=== PATIENT | male | born 1945 | race Caucasian/White ===

== ENCOUNTER 2016-05-07 11:25 | Inpatient (IN) | payer MEDICAID, OTHER ==
[~2016-05-07] VITALS: Ht 160 cm; Wt 56.4 kg
[~2016-05-07 11:25] MED LIST: ALBU8.5H5 INH; FOLI-49 PO; MULTI PO
[2016-05-07] MEDS ORDERED: SOD CHLORIDE 0.9% 1,000 ML IV STA (11:53)
[2016-05-07] MEDS ORDERED: ONDANSETRON 4 MG INJ IV STA (11:53)
[2016-05-07] MEDS ORDERED: PANTOPRAZOLE 40 MG INJ IV STA (11:53)
--- NOTE | 2016-05-07 12:07 | ERA ---
ER Documentation Chief Complaint Date/Time DATE: 05/07/16 TIME: 12:07 Chief Complaint BIB RA 881 FOR EVAL OF VOMITING BLOOD HPI The patient is a 70-year-old male, presenting to the ER because of acute hematemesis last night after drinking. He has similar symptoms previously. He could not tell me how much he vomited. He denies syncope, near syncope, complains of generalized weakness, denied neck pain, chest pain, dyspnea. He complains of diffuse abdominal pain that began last night. He denies dysuria, polyuria, diarrhea, constipation. He does not smoke, drinks regularly, denies illicit Past medical history: Asthma, gastritis, alcoholism Past surgical history: None ROS All systems reviewed and are negative except as per history of present illness. Medications Home Meds Discontinued Scripts Multivitamins* (Theragran*) 1 Tab Tab, 1 TAB PO DAILY for 30 Days, TAB 3 Refills Prov:ADONIS PARTIDA S. 01/04/15 Folic Acid* (Folic Acid*) 1 Mg Tab, 1 MG PO DAILY for 30 Days, 3 Refills Prov:ADONIS PARTIDA S. 01/04/15 Albuterol Sulfate* (Albuterol Sulfate* HFA) 8.5 Gm Hfa.aer.ad, 1-2 PUFF INH Q4 Y for SHORTNESS OF BREATH for 30 Days, EA 3 Refills Prov:ADONIS PARTIDA S. 01/04/15 Allergies Allergies: Coded Allergies: No Known Allergy (Unverified , 05/07/16) PMhx/Soc History of Surgery: No Anesthesia Reaction: No Hx Neurological Disorder: No Hx Respiratory Disorders: Yes (asthma ) Hx Cardiac Disorders: No Hx Psychiatric Problems: No Hx Miscellaneous Medical Probl: Yes (ETOH ABUSE) Hx Alcohol Use: Yes Hx Substance Use: No Hx Tobacco Use: No Physical Exam Vitals Vital Signs Date Time Temp Pulse Resp B/P Pulse Ox O2 Delivery O2 Flow Rate FiO2 05/07/16 12:20 98 16 110/60 98 05/07/16 11:37 97.9 100 19 104/69 99 Physical Exam Const: No acute distress. Unkempt Head: Atraumatic. Eyes: Normal Conjunctiva. ENT: Normal External Ears, Nose and Mouth. Neck: Full range of motion. No meningismus. Resp: Clear to auscultation bilaterally. Cardio: Regular rate and rhythm, no murmurs. Abd: Soft, non distended, normal bowel sounds, moderate and diffuse abdominal tenderness, no rigidity, rebound, CVA tenderness Skin: No petechiae or rashes. Back: No midline or flank tenderness. Ext: No cyanosis, or edema. Neur: Awake and alert. No focal deficit Psych: Normal Mood and Affect. Result Diagram: 05/07/16 1225 05/07/16 1225 Results 24 hrs Laboratory Tests Test 05/07/16 12:25 Activated Partial Thromboplast Time 32.9Sec Alanine Aminotransferase (ALT/SGPT) 40IU/L Albumin 2.9g/dl Albumin/Globulin Ratio 0.59 Alkaline Phosphatase 202IU/L Anion Gap 16 Aspartate Amino Transf (AST/SGOT) 107IU/L Band Neutrophils % 3.0% Basophils # 0.110^3/ul Basophils % 1.0% Blood Morphology Comment Blood Urea Nitrogen 12mg/dl Calcium Level 7.7mg/dl Carbon Dioxide Level 26mmol/L Chloride Level 99mmol/L Creatinine 0.64mg/dl Direct Bilirubin 0.00mg/dl Eosinophils # 0.210^3/ul Eosinophils % 2.0% Ethyl Alcohol Level 218.0mg/dl Globulin 4.90g/dl Glucose Level 94mg/dl Hematocrit 24.1% Hemoglobin 7.9g/dl INR International Normalized Ratio 1.30 Indirect Bilirubin 1.0mg/dl Lipase 183U/L Lymphocytes # 1.110^3/ul Lymphocytes % 14.0% Mean Corpuscular Hemoglobin 31.9pg Mean Corpuscular Hemoglobin Concent 32.9g/dl Mean Corpuscular Volume 97.0fl Mean Platelet Volume 8.1fl Monocytes # 0.410^3/ul Monocytes % 5.0% Neutrophils # 5.610^3/ul Neutrophils % 75.0% Platelet Count 15373^3/UL Potassium Level 4.1mmol/L Prothrombin Time 16.3Sec Prothrombin Time Ratio 1.3 Red Blood Count 2.4910^6/ul Red Cell Distribution Width 20.5% Sodium Level 137mmol/L Total Bilirubin 1.0mg/dl Total Protein 7.8g/dl Troponin I < 0.012ng/ml White Blood Count 7.510^3/ul Current Medications Medications (Trade) Dose Ordered Sig/Deandra Route PRN Reason Start Time Stop Time Status Last Admin Dose Admin Sodium Chloride (NS) 1,000 ml @ 1,000 mls/hr Q1H STAT IV 05/07/16 11:53 05/07/16 12:52 DC 05/07/16 12:33 Pantoprazole (Protonix Iv) 40 mg ONCE STAT IV 05/07/16 11:53 05/07/16 11:55 DC 05/07/16 12:33 Ondansetron HCl (Zofran Inj) 4 mg ONCE STAT IV 05/07/16 11:53 05/07/16 11:55 DC 05/07/16 12:33 Lorazepam (Ativan) 1 mg ONCE ONCE IV 05/07/16 13:30 05/07/16 13:30 DC Chlordiazepoxide (Librium) 75 mg ONCE ONCE PO 05/07/16 13:30 05/07/16 13:30 DC Procedures/MDM EKG: Read by emergency physician Rate/Rhythm: Sinus tachycardia 101 beats per min QRS, ST, T-waves: No ST elevation, no T wave inversion, low voltage QRS Impression: Abnormal EKG [place] [id number] Radiology Main Line: [phone] DIAGNOSTIC IMAGING REPORT Patient: LISSY RODRIGUEZ : 1945 Age: 70 Sex: M MR #: [id number] DOS: 05/07/16 1153 Ordering MD: TOMASZ HARDY DO Location: E/R Room/Bed: PROCEDURE: CT abdomen and pelvis without contrast. CLINICAL INDICATION: Weakness. There is a question of upper GI bleed. TECHNIQUE: CT of the abdomen and pelvis without contrast was performed on a multidetector high-resolution CT scanner. Coronal and sagittal reformatted images were obtained from the axial source images. Images were reviewed on a high-resolution PACS workstation. The total exam CTDI equals 6.63 mGy and the total exam DLP equals 384.15 mGy-cm. COMPARISON: None available. FINDINGS: There is a calcified granuloma within the visualized lingula and there is mild centrilobular emphysema within the visualized lung bases, which are otherwise clear. There are coronary artery calcifications. The visualized heart is otherwise unremarkable. There is diffuse fatty infiltration of the liver, which is otherwise grossly unremarkable. There is no intra or extrahepatic biliary ductal dilatation. There stones within the gallbladder. The spleen, pancreas, adrenal glands are grossly unremarkable. There is a moderate hiatal hernia. There is no nephrolithiasis or hydronephrosis. There is no bowel wall thickening or evidence of obstruction. The appendix is in the right lower quadrant, and is unremarkable. There is no free intraperitoneal air. There is a qlkodxsd-dj-zokgz volume of simple-appearing ascites. There is mild anasarca. There is no mesenteric or retroperitoneal adenopathy. There are atherosclerotic changes of the aorta, which is nonaneurysmal. The prostate gland, seminal vesicles, and urinary bladder are grossly unremarkable. There are small to moderate bilateral inguinal hernias, both of which contain ascitic fluid. There are mild compression deformities involving the superior endplates of L1 and L4, age indeterminate. There are ventral flowing osteophytes spanning the visualized lower thoracic spine, consistent with diffuse idiopathic skeletal hyperostosis (DISH). There are no concerning osseous lesions. IMPRESSION: 1. Pulmonary findings of prior granulomatous disease. 2. Hepatic steatosis. 3. Moderate hiatal hernia. 4. Moderate to large volume of simple-appearing ascites and mild anasarca. 5. Cholelithiasis. 6. Small to moderate bilateral inguinal hernias, both of which containing ascitic fluid. 7. Coronary artery calcifications and atherosclerotic changes of the aorta. 8. Mild compression deformities of L1 and L4, age indeterminate. 9. Spinal findings of DISH. RPTAT: GG .Facundo Yee MD, Date Time Electronically viewed and signed by .Facundo Yee MD, MD on 05/07/2016 13:19 .P/ CC: TOMASZ HARDY DO [place] [id number] Radiology Main Line: [phone] DIAGNOSTIC IMAGING REPORT Patient: LISSY RODRIGUEZ : 1945 Age: 70 Sex: M MR #: [id number] DOS: 05/07/16 1214 Ordering MD: CRISHTIAN DOBBINS MD Location: E/R Room/Bed: PROCEDURE: XR Chest. CLINICAL INDICATION: chest pain, weakness TECHNIQUE: Single frontal view of the chest was obtained COMPARISON: 12/25/14 FINDINGS: The heart and mediastinum are within normal limits. The lungs are clear. There is no pleural effusion or pneumothorax. RPTAT: AA IMPRESSION: No acute disease. .Dale Ayala MD, MD Date Time Electronically viewed and signed by .Dale Ayala MD, MD on 05/07/2016 13: 03 .S/ CC: CRISTHIAN DOBBINS MD MEDICAL MAKING DECISION: The patient is a 70-year-old male, presenting with acute GI bleed, acute alcohol intoxication.. He was treated with NGT, Protonix 40 mg IV, Zofran 4 mg IV and 1 L normal saline. The differential diagnoses considered include but are not limited to esophagitis, GI malignancy gastritis, peptic ulcer disease, esophageal varices, Elaine-Chaudhry tear, carcinoma, polyp, hemorrhoid, fissure, diverticulosis, angiodysplasia. Departure Diagnosis: Primary Impression: GI bleed Additional Impressions: Alcoholic intoxication Hepatic steatosis Ascites Cholelithiasis Hiatal hernia Abnormal LFTs Condition: Stable Comments I discussed the findings with the patient. I discussed the patient with his physician Dr. Garay who was made aware of the lab, the treatment, the patient condition. The patient is admitted to telemetry at 2:40 PM Critical Care: Time: 35 minutes Treatments/Evaluations: Close monitoring and treatment of unstable vital signs, cardiorespiratory, and neurologic status, while maintaining tight balance of fluid, respiratory, and cardiac interventions. CRISTHIAN DOBBINS MD May 07, 2016 12:07
[2016-05-07 12:48] LABS: HEMATOCRIT 24.1 % (42.0-52.0); HEMOGLOBIN 7.9 g/dl (14.0-18.0); MEAN CORPUSCULAR HEMOGLOBIN 31.9 pg (29.0-33.0); MEAN CORPUSCULAR HGB CONC 32.9 g/dl (32.0-37.0); MEAN PLATELET VOLUME 8.1 fl (7.4-10.4); PLATELET COUNT 244 10^3/UL (140-440); RED BLOOD COUNT 2.49 10^6/ul (4.70-6.10); RED CELL DISTRIBUTION WIDTH 20.5 % (11.5-14.5); UNCORRECTED WBC 7.5 10^3/ul (4.8-10.8); WHITE BLOOD COUNT 7.5 10^3/ul (4.8-10.8)
[2016-05-07 12:52] LABS: INR 1.3; PROTIME 16.3 Sec (12.2-14.2); PT RATIO 1.3
[2016-05-07 12:55] LABS: ALBUMIN 2.9 g/dl (3.3-4.9); SODIUM 137 mmol/L (135-144)
[2016-05-07 12:56] LABS: POTASSIUM 4.1 mmol/L (3.5-5.1)
[2016-05-07 12:58] LABS: ALBUMIN/GLOBULIN RATIO 0.59; ALKALINE PHOSPHATASE 202 IU/L (42-121); ASPARTATE AMINO TRANSFERASE 107 IU/L (15-46); BLOOD UREA NITROGEN 12 mg/dl (7-20); CARBON DIOXIDE 26 mmol/L (21-31); CREATININE 0.64 mg/dl (0.61-1.24); TOTAL PROTEIN 7.8 g/dl (6.1-8.1)
[2016-05-07 12:59] LABS: ALANINE AMINOTRANSFERASE 40 IU/L (13-69); CALCIUM 7.7 mg/dl (8.4-10.2); GLUCOSE 94 mg/dl (70-220)
--- NOTE | 2016-05-07 13:04 | RADRPT ---
PROCEDURE: XR Chest. CLINICAL INDICATION: chest pain, weakness TECHNIQUE: Single frontal view of the chest was obtained COMPARISON: 12/25/14 FINDINGS: The heart and mediastinum are within normal limits. The lungs are clear. There is no pleural effusion or pneumothorax. RPTAT: AA IMPRESSION: No acute disease. .Dale Ayala MD, MD Date Time Electronically viewed and signed by .Dale Ayala MD, on 05/07/2016 13:03 .S/
[2016-05-07 13:18] LABS: CONDITION 1; LH ANALYZER COMMENTS 1
--- NOTE | 2016-05-07 13:19 | RADRPT ---
PROCEDURE: CT abdomen and pelvis without contrast. CLINICAL INDICATION: Weakness. There is a question of upper GI bleed. TECHNIQUE: CT of the abdomen and pelvis without contrast was performed on a multidetector high-res olution CT scanner. Coronal and sagittal reformatted images were obtained from the axial source imag es. Images were reviewed on a high-resolution PACS workstation. The total exam CTDI equals 6.63 mGy and the total exam DLP equals 384.15 mGy-cm. COMPARISON: None available. FINDINGS: There is a calcified granuloma within the visualized lingula and there is mild centrilobular emphyse ma within the visualized lung bases, which are otherwise clear. There are coronary artery calcifica tions. The visualized heart is otherwise unremarkable. There is diffuse fatty infiltration of the liver, which is otherwise grossly unremarkable. There is no intra or extrahepatic biliary ductal dilatation. There stones within the gallbladder. The spleen , pancreas, adrenal glands are grossly unremarkable. There is a moderate hiatal hernia. There is n o nephrolithiasis or hydronephrosis. There is no bowel wall thickening or evidence of obstruction. The appendix is in the right lower migel drant, and is unremarkable. There is no free intraperitoneal air. There is a itxjgyzd-tu-fnilu volu me of simple-appearing ascites. There is mild anasarca. There is no mesenteric or retroperitoneal adenopathy. There are atherosclerotic changes of the aorta, which is nonaneurysmal. The prostate gl and, seminal vesicles, and urinary bladder are grossly unremarkable. There are small to moderate solitario ateral inguinal hernias, both of which contain ascitic fluid. There are mild compression deformities involving the superior endplates of L1 and L4, age indetermin ate. There are ventral flowing osteophytes spanning the visualized lower thoracic spine, consistent with diffuse idiopathic skeletal hyperostosis (DISH). There are no concerning osseous lesions. IMPRESSION: 1. Pulmonary findings of prior granulomatous disease. 2. Hepatic steatosis. 3. Moderate hiatal hernia. 4. Moderate to large volume of simple-appearing ascites and mild anasarca. 5. Cholelithiasis. 6. Small to moderate bilateral inguinal hernias, both of which containing ascitic fluid. 7. Coronary artery calcifications and atherosclerotic changes of the aorta. 8. Mild compression deformities of L1 and L4, age indeterminate. 9. Spinal findings of DISH. RPTAT: GG .Facundo Yee MD, MD Date Time Electronically viewed and signed by .Facundo Yee MD, MD on 05/07/2016 13:19 .P/
[2016-05-07 13:25] LABS: TROPONIN-I < 0.012 ng/ml (0.00-0.12)
[2016-05-07] MEDS ORDERED: LORAZEPAM 2 MG INJ IV ONE (13:30)
[2016-05-07] MEDS ORDERED: CHLORDIAZEPOXIDE 25 MG CAP PO ONE (13:30)
[2016-05-07 13:50] LABS: BASOPHIL # 0.1 10^3/ul (0.0-0.1); EOSINOPHILS # 0.2 10^3/ul (0.0-0.5); LYMPHOCYTES # 1.1 10^3/ul (0.8-2.9); MONOCYTE # 0.4 10^3/ul (0.3-0.9); NEUTROPHIL # 5.6 10^3/ul (1.6-7.5); PARTIAL THROMBOPLASTIN TIME 32.9 Sec (25.0-35.0)
[2016-05-07 13:53] LABS: ANION GAP 16 (8-16)
[2016-05-07 14:08] LABS: CHLORIDE 99 mmol/L (97-110)
[2016-05-07 18:17] VITALS: BP 138/63; PULSE 116; RESP 18
[2016-05-07 18:19] VITALS: Ht 160 cm; Wt 56.4 kg
--- NOTE | 2016-05-07 19:13 | CONS ---
Date/Time of Note Date/Time of Note DATE: 05/07/16 TIME: 19:08 Assessment/Plan Assessment/Plan Additional Assessment/Plan Hematemesis Anemia Abdominal pain Nausea History of EtOH abuse Ascites Transaminitis Plan: Plan for EGD tomorrow afternoon Advised patient of R/B/A of procedure and he is agreeable to proceed Start octreotide and Protonix drip Monitor H&H every 6 hours, transfuse 2 units for Hgb <7.5 Type and screen NPO Paracentesis as needed Review hepatitis serology Further recommendations depend on clinical course , Consultation Date/Type/Reason Admit Date/Time May 07, 2016 at 14:39 Hx of Present Illness 70-year-old M with extensive history of EtOH abuse for several years presented to ED with complaints of abdominal pain, nausea, and hematemesis. Patient stated symptoms started abruptly early this morning. He reports drinking several beers last night, and reports being abstinent for several hours. Patient denies previous episode. Patient denies chest pain, shortness of breath , syncopal episode, dizziness, and diarrhea. Patient denies previous episode and other chronic conditions. Provided R/B/A of procedure the patient is agreeable to proceed Social History Smoking Status: Never smoker Exam/Review of Systems Vital Signs Vitals Vital Signs Date Time Temp Pulse Resp B/P Pulse Ox O2 Delivery O2 Flow Rate FiO2 05/07/16 18:17 97.6 116 18 138/63 96 Room Air Exam Constitutional: alert, frail, oriented Psych: nl mood/affect Eyes: EOMI Respiratory: clear to auscultation Cardiovascular: regular rate and rhythm Gastrointestinal: distended, firm Neurological: STREET SPRINKLER II-XII intact Results Result Diagram: 05/07/16 1225 05/07/16 1225 Results 24 hrs Laboratory Tests Test 05/07/16 12:25 Activated Partial Thromboplast Time 32.9 Alanine Aminotransferase (ALT/SGPT) 40 Albumin 2.9 L Albumin/Globulin Ratio 0.59 Alkaline Phosphatase 202 H Anion Gap 16 Aspartate Amino Transf (AST/SGOT) 107 H Band Neutrophils % 3.0 Basophils # 0.1 Basophils % 1.0 Blood Morphology Comment Blood Urea Nitrogen 12 Calcium Level 7.7 L Carbon Dioxide Level 26 Chloride Level 99 Creatinine 0.64 Direct Bilirubin 0.00 Eosinophils # 0.2 Eosinophils % 2.0 Ethyl Alcohol Level 218.0 Globulin 4.90 H Glucose Level 94 Hematocrit 24.1 L Hemoglobin 7.9 L INR International Normalized Ratio 1.30 Indirect Bilirubin 1.0 Lipase 183 Lymphocytes # 1.1 Lymphocytes % 14.0 L Mean Corpuscular Hemoglobin 31.9 Mean Corpuscular Hemoglobin Concent 32.9 Mean Corpuscular Volume 97.0 Mean Platelet Volume 8.1 # Monocytes # 0.4 Monocytes % 5.0 Neutrophils # 5.6 Neutrophils % 75.0 Platelet Count 244 Potassium Level 4.1 Prothrombin Time 16.3 H Prothrombin Time Ratio 1.3 Red Blood Count 2.49 #L Red Cell Distribution Width 20.5 H Sodium Level 137 Total Bilirubin 1.0 Total Protein 7.8 Troponin I < 0.012 White Blood Count 7.5 # Medications Medications Current Medications Pantoprazole 80 mg/Sodium Chloride 100 ml @ 10 mls/hr Q10H IV ; Start 05/07/16 at 19:30; Status UNV Octreotide Acetate/Sodium Chloride (Sandostatin/NS) 50 ml @ 2.5 mls/hr Q20H IV ; Start 05/07/16 at 19:30; Status UNV MAIA ROSA MD May 07, 2016 19:12
[2016-05-07] MEDS ORDERED: PANTOPRAZOLE IV 80 MG in SOD CHLORIDE 0.9% 100 ML IV SCH (19:30)
[2016-05-07] MEDS ORDERED: PANTOPRAZOLE 40 MG INJ IV ONE (19:30)
[2016-05-07] MEDS ORDERED: NACL 0.9% 3 ML SYG IV SCH (19:30)
[2016-05-07] MEDS ORDERED: ONDANSETRON 4 MG INJ IV PRN (19:30)
[2016-05-07 19:31] LABS: HEMATOCRIT 20.9 % (42.0-52.0)
[2016-05-07 19:34] VITALS: BP 111/58; RESP 18
[2016-05-07 19:41] LABS: HEMOGLOBIN 6.9 g/dl (14.0-18.0)
--- NOTE | 2016-05-07 19:55 | HP ---
DATE OF ADMISSION: 05/07/2016 CHIEF COMPLAINT: Upper gastrointestinal bleed. HISTORY OF PRESENT ILLNESS: The patient is a 70-year-old male with known history of alcohol abuse, homelessness. The patient was last hospitalized here in 2014. The patient presents with vomiting o f blood that started this morning. States that his last drink was last night. States this is the f irst time that he has had an upper GI bleed, but he is confused. The patient is a poor historian at this time. PAST MEDICAL HISTORY: Alcohol abuse with previous hospitalization for alcohol withdrawal, weakness. PAST SURGICAL HISTORY: Denies. HOME MEDICATIONS: None. ALLERGIES: NO KNOWN DRUG ALLERGIES. FAMILY HISTORY: Unknown. SOCIAL HISTORY: The patient is homeless. He does have a history of alcohol abuse. It is not clear if he uses illicit drugs or cigarettes. REVIEW OF SYSTEMS: A 12-point review of systems is difficult to obtain secondary to patient's poor mentation. PHYSICAL EXAMINATION: VITAL SIGNS: Temperature is 97.6, pulse 116, respiratory rate 18, BP is 138/63, saturation 96% on r oom air. GENERAL: No acute distress. Alert, but not oriented, disheveled. HEENT: Normocephalic, atraumatic. Blood noted around the mouth. LUNGS: Clear to auscultation. CARDIOVASCULAR: Regular rate and rhythm. ABDOMEN: Nondistended, nontender, soft. EXTREMITIES: No clubbing, cyanosis, or edema. LABORATORIES: White count 7.5, hemoglobin 7.9, platelets are 244. Chemistry within normal limits. AST is 107, alkaline phosphatase is 202. INR 1.3. Alcohol level is 218. DIAGNOSTICS: Abdominal pelvis CT shows hepatic steatosis, hiatal hernia, ascites, cholelithiasis, b ilateral inguinal hernias, spinal findings of DISH. Chest x-ray: No acute disease. ASSESSMENT AND PLAN: 1. Upper gastrointestinal bleed possible secondary to esophageal varices versus gastric ulcer. The patient does have a history of alcohol abuse. GI has been consulted. We will start him on a Ervin nix drip. The patient is not actively bleeding at this time. 2. Acute on chronic anemia. This is likely secondary to patient's upper gastrointestinal bleed. T he patient's MCV is elevated, likely secondary to alcohol abuse, but will check an iron panel as MCV may be falsely elevated secondary to his alcohol abuse and liver disease. No indication for blood transfusion at this time. 3. Alcohol abuse. The patient will be advised for consultation. Will obtain a social worker palliative care consu ltation. 4. Homelessness. delinquency prevention social worker consultation. 5. Prophylaxis: Sequential compression devices. Dictated By: ZHENG VERA MD BS/NTS Conf#: [id number] DID#: [id number]
[2016-05-07] MEDS: D5W-0.45 NACL + KCL 20 MEQ 1,000 ML IV SCH (20:09)
[2016-05-07 20:35] VITALS: PULSE 111
[2016-05-07] MEDS: OCTREOTIDE 500 MCG in SOD CHLORIDE 0.9% 49 ML IV SCH (21:11)
[2016-05-07 21:13] LABS: HEPATITIS B CORE ANTIBODY NEGATIVE (NEGATIVE)
[2016-05-07] MEDS: PANTOPRAZOLE IV 80 MG in SOD CHLORIDE 0.9% 100 ML IV SCH (23:03)
[2016-05-08] VITALS (18 sets, daily range): BP systolic 119–157; BP diastolic 68–89; PULSE 85–99; RESP 16–36
[2016-05-08] MEDS: D5W-0.45 NACL + KCL 20 MEQ 1,000 ML IV SCH ×4 (05:09→23:30)
[2016-05-08] MEDS: PANTOPRAZOLE IV 80 MG in SOD CHLORIDE 0.9% 100 ML IV SCH ×3 (05:30→16:18)
[2016-05-08 06:21] LABS: INR 1.3; PROTIME 16.3 Sec (12.2-14.2); PT RATIO 1.3
[2016-05-08 06:22] LABS: PARTIAL THROMBOPLASTIN TIME 33.8 Sec (25.0-35.0)
[2016-05-08 06:23] LABS: HEMATOCRIT 27.6 % (42.0-52.0); HEMOGLOBIN 9.4 g/dl (14.0-18.0); MEAN CORPUSCULAR HEMOGLOBIN 31.9 pg (29.0-33.0); MEAN CORPUSCULAR VOLUME 93.9 fl (82.0-101.0); MEAN PLATELET VOLUME 8.2 fl (7.4-10.4); PLATELET COUNT 187 10^3/UL (140-440); RED BLOOD COUNT 2.94 10^6/ul (4.70-6.10); RED CELL DISTRIBUTION WIDTH 17.9 % (11.5-14.5); UNCORRECTED WBC 7.9 10^3/ul (4.8-10.8); WHITE BLOOD COUNT 7.9 10^3/ul (4.8-10.8)
[2016-05-08 06:34] LABS: ALBUMIN 2.7 g/dl (3.3-4.9)
[2016-05-08 06:35] LABS: CONDITION 1; LH ANALYZER COMMENTS 1; POTASSIUM 4.3 mmol/L (3.5-5.1)
[2016-05-08 06:37] LABS: ALBUMIN/GLOBULIN RATIO 0.57; BILIRUBIN,INDIRECT 0.9 mg/dl (0-1.1); BILIRUBIN,TOTAL 0.9 mg/dl (0.2-1.3); CREATININE 0.7 mg/dl (0.61-1.24); TOTAL PROTEIN 7.4 g/dl (6.1-8.1)
[2016-05-08 06:38] LABS: CALCIUM 7.8 mg/dl (8.4-10.2); MAGNESIUM 1.8 mg/dl (1.7-2.5); PHOSPHORUS 2.8 mg/dl (2.5-4.9)
[2016-05-08 07:18] LABS: IRON 58 ug/dl (35-150)
[2016-05-08 07:27] LABS: TOTAL IRON BINDING CAPACITY 262 ug/dl (241-421)
[2016-05-08 08:45] LABS: FOLATE 4.7 ng/ml (2.8-20.0)
[2016-05-08] MEDS ORDERED: INFLUENZA VIRUS VACCINE 0.5 ML (DISPENSING) IM* ONE (09:00)
[2016-05-08 09:17] LABS: BASOPHIL # 0.2 10^3/ul (0.0-0.1); EOSINOPHILS # 0.1 10^3/ul (0.0-0.5); NEUTROPHIL # 5.5 10^3/ul (1.6-7.5)
[2016-05-08 12:33] LABS: HEMATOCRIT 25.9 % (42.0-52.0); HEMOGLOBIN 8.7 g/dl (14.0-18.0)
[2016-05-08] MEDS: OCTREOTIDE 500 MCG in SOD CHLORIDE 0.9% 49 ML IV SCH ×2 (13:46→15:30)
--- NOTE | 2016-05-08 14:18 | PN ---
Date/Time of Note Date/Time of Note DATE: 05/08/16 TIME: 14:14 Assessment/Plan VTE Prophylaxis VTE Prophylaxis Intervention: SCD's Lines/Catheters IV Catheter Type (from Rust): Peripheral IV Urinary Cath still in place: No Assessment/Plan Chief Complaint/Hosp Course 1. Upper gastrointestinal bleed possible secondary to esophageal varices versus gastric ulcer- The patient does have a history of alcohol abuse GI consult appreciated. Plan is for EGD today Continue Protonix 2. Acute on chronic anemia-stable Workup is normal with normal iron as well as normal vitamin B12 and folate 3. Alcohol abuse. 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 Homelessness line out worker consultation 5. Prophylaxis: Sequential compression devices. Problems: Subjective 24 Hr Interval Summary Constitutional: disoriented Exam/Review of Systems Vital Signs Vitals Vital Signs Date Time Temp Pulse Resp B/P Pulse Ox O2 Delivery O2 Flow Rate FiO2 05/08/16 12:21 90 05/08/16 11:25 97.9 16 137/88 98 05/07/16 18:17 Room Air Intake and Output 05/07/16 05/07/16 05/08/16 15:00 23:00 07:00 Intake Total 1400.5 ml Balance 1400.5 ml Exam GENERAL: NAD HEENT: NCAT LUNGS: Clear to auscultation bilaterally CARDIOVASCULAR: S1, S2 heard. No rubs or gallops. ABDOMEN: Soft, nontender, nondistended. Normal bowel sounds. No rebound or guarding. NEUROLOGIC: No focal deficits EXT- No c/c/e Results Result Diagram: 05/08/16 1208 05/08/16 0545 Results 24 hrs Laboratory Tests Test 05/07/16 19:20 05/07/16 19:40 05/08/16 05:45 05/08/16 12:08 Hematocrit 20.9 L 27.6 #L 25.9 L Hemoglobin 6.9 *L 9.4 #L 8.7 L Hepatitis B Core Total Antibody NEGATIVE Hepatitis B Surface Antigen NEGATIVE Hepatitis C Antibody NEGATIVE Activated Partial Thromboplast Time 33.8 Alanine Aminotransferase (ALT/SGPT) 52 Albumin 2.7 L Albumin/Globulin Ratio 0.57 Alkaline Phosphatase 187 H Anion Gap 16 Aspartate Amino Transf (AST/SGOT) 87 H Basophils # 0.2 H Basophils % 2.0 Blood Morphology Comment Blood Urea Nitrogen 15 Calcium Level 7.8 L Carbon Dioxide Level 23 Chloride Level 103 Creatinine 0.70 Differential Comment MANUAL DIFF Direct Bilirubin 0.00 Eosinophils # 0.1 Eosinophils % 1.0 Folate 4.7 Globulin 4.70 H Glucose Level 109 Hemoglobin A1c 5.1 INR International Normalized Ratio 1.30 Indirect Bilirubin 0.9 Iron Level 58 Lymphocytes # 1.0 Lymphocytes % 13.0 L Macrocytosis 1+ Magnesium Level 1.8 Mean Corpuscular Hemoglobin 31.9 Mean Corpuscular Hemoglobin Concent 34.0 Mean Corpuscular Volume 93.9 Mean Platelet Volume 8.2 Monocytes # 1.0 H Monocytes % 13.0 H Neutrophils # 5.5 Neutrophils % 70.0 Percent Iron Saturation 22 Phosphorus Level 2.8 Platelet Count 187 # Potassium Level 4.3 Prothrombin Time 16.3 H Prothrombin Time Ratio 1.3 Reactive Lymphocytes % 1.0 Red Blood Count 2.94 L Red Cell Distribution Width 17.9 H Sodium Level 138 Total Bilirubin 0.9 Total Iron Binding Capacity 262 Total Protein 7.4 Vitamin B12 Level 917 White Blood Count 7.9 Medications Medications Current Medications Pantoprazole 80 mg/Sodium Chloride 100 ml @ 10 mls/hr Q10H IV Last administered on 05/08/16at 07:29; Admin Dose 10 MLS/HR; Start 05/07/16 at 19:30 Octreotide Acetate 500 mcg/ Sodium Chloride 50 ml @ 2.5 mls/hr Q20H IV Last administered on 05/08/16at 13:46; Admin Dose 2.5 MLS/HR; Start 05/07/16 at 19:30 Potassium Chloride/Dextrose/ Sod Cl (D5-1/2ns + KCl 20 Meq) 1,000 ml @ 100 mls/ hr Q10H IV Last administered on 05/08/16at 13:52; Admin Dose 100 MLS/HR; Start 05/07/16 at 19:09 Ondansetron HCl (Zofran Inj) 4 mg Q6H PRN IV NAUSEA AND/OR VOMITING; Start 05/07/16 at 19:30 Morphine Sulfate (morphine) 2 mg Q4H PRN IV SEVERE PAIN LEVEL 7-10; Start 05/07 at 19:30 Docusate Sodium (Colace) 100 mg Q12H PRN PO CONSTIPATION; Start 05/07/16 at 19: 30 ZHENG VERA May 08, 2016 14:18
[2016-05-08] MEDS ORDERED: PROPOFOL 20 ML ONE (15:11)
[2016-05-08] MEDS: morphine 2 MG INJ IV PRN ×2 (16:12→20:08)
[2016-05-08 18:33] LABS: HEMATOCRIT 26.8 % (42.0-52.0)
[2016-05-09] VITALS (11 sets, daily range): BP systolic 126–153; BP diastolic 73–87; PULSE 90–100; RESP 18–20
[2016-05-09] MEDS: D5W-0.45 NACL + KCL 20 MEQ 1,000 ML IV SCH ×3 (01:09→21:09)
[2016-05-09] MEDS: PANTOPRAZOLE IV 80 MG in SOD CHLORIDE 0.9% 100 ML IV SCH ×4 (01:30→14:19)
--- NOTE | 2016-05-09 04:43 | GILP ---
DATE OF PROCEDURE: PROCEDURE: Esophagogastroduodenoscopy with endoscopic variceal ligation. BRIEF HISTORY AND INDICATIONS: The patient with evidence of significant hematochezia and evidence o f chronic liver disease likely alcoholic in nature. PREMEDICATION: Monitored anesthesia care by anesthesiologist. SURGEON: Maia Ochoa MD. TECHNIQUE: After informed consent, with the patient/relatives understanding the procedure, its indic ations, potential risks and complications, including but not limited to: allergic reaction, bleeding , perforation or infection, and after all pertinent questions were answered to the patients satisfac tion, the patient/relatives signed witnessed informed consent. Following this, premedication was administered slowly IV push under careful cardiovascular and respi ratory monitoring with pulse oximetry, automatic blood pressure and teletypesetter monitor. Once the sedative effect was achieved the patient was place in the left lateral decubitus, the panen doscope was introduced and advanced under visual control. Careful examination of the upper gastrointestinal tract, both on insertion as well as withdrawal of the instrument disclosed the following findings: ESOPHAGUS: The distal esophagus shows very large grade IV/IV in the distal third of the esophagus. Once such varix has white plug which is stigmata of recent bleeding and high risk of rebleeding. STOMACH: Upon entrance to the stomach, air was insufflated. The gastric thompson distended normally. Th ere is mild congestion likely representing portal hypertension gastropathy. No bleeding source iden tified. PYLORUS: The pylorus appears patent and within normal limits, with no evidence of gastric outlet obs truction. DUODENUM: The duodenal mucosa was carefully examined in the duodenal bulb as well as the second port ion of the duodenum and appears unremarkable with no evidence of duodenitis, ulcer or neoplasm. At this point, the instrument was withdrawn. The banding device was attached to the tip of the inst rument. The instrument was then reintroduced and bands were applied to the most prominent variceal channels starting with the one that had the white plug. No residual bleeding or evidence of complic ation was present. IMPRESSION: Grade IV/IV esophageal varices with stigmata of recent bleeding "white plug."Post-endosc opic variceal ligation x4. PLAN: We will continue PPIs. Diet will be advanced as tolerated tomorrow and clear liquids for the rest of the day today. Closely monitor H and H and will be critical to the patient's well being an d the patient should be followed up with an EGD and possible further banding in 8 to 12 weeks. Dictated By: MAIA SEXTON Conf#: [id number] DID#: [id number]
[2016-05-09 07:03] LABS: HEMATOCRIT 27.1 % (42.0-52.0); HEMOGLOBIN 9.1 g/dl (14.0-18.0); MEAN CORPUSCULAR HGB CONC 33.8 g/dl (32.0-37.0); MEAN CORPUSCULAR VOLUME 94.7 fl (82.0-101.0); PLATELET COUNT 171 10^3/UL (140-440); RED BLOOD COUNT 2.86 10^6/ul (4.70-6.10); UNCORRECTED WBC 6.2 10^3/ul (4.8-10.8); WHITE BLOOD COUNT 6.2 10^3/ul (4.8-10.8)
[2016-05-09 07:06] LABS: POTASSIUM 3.6 mmol/L (3.5-5.1)
[2016-05-09 07:08] LABS: CREATININE 0.59 mg/dl (0.61-1.24)
[2016-05-09 07:09] LABS: CALCIUM 8.2 mg/dl (8.4-10.2)
[2016-05-09 07:12] LABS: CONDITION 1; LH ANALYZER COMMENTS 1; SUSPECT 1
[2016-05-09] MEDS: OCTREOTIDE 500 MCG in SOD CHLORIDE 0.9% 49 ML IV SCH ×2 (09:27→11:30)
[2016-05-09 10:16] LABS: BASOPHIL # 0.1 10^3/ul (0.0-0.1); EOSINOPHILS # 0.1 10^3/ul (0.0-0.5); LYMPHOCYTES # 0.4 10^3/ul (0.8-2.9); MONOCYTE # 0.4 10^3/ul (0.3-0.9); NEUTROPHIL # 5.1 10^3/ul (1.6-7.5)
--- NOTE | 2016-05-09 15:25 | PN ---
Date/Time of Note Date/Time of Note DATE: 05/09/16 TIME: 15:22 Assessment/Plan VTE Prophylaxis VTE Prophylaxis Intervention: SCD's Lines/Catheters IV [facility] Type (from [facility] Peripheral IV Urinary Cath still in place: No Assessment/Plan Chief Complaint/Hosp Course 1. Upper gastrointestinal bleed possible secondary to esophageal varices versus gastric ulcer- The patient does have a history of alcohol abuse GI consult appreciated, EGD done and showed multiple esophageal varices status post ligation Monitor hemoglobin overnight and will DC home tomorrow if stable DC octreotide and Protonix drips 2. Acute on chronic anemia 2/2 Blood loss- stable Workup is normal with normal iron as well as normal vitamin B12 and folate 3. Alcohol abuse. 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 Prophylaxis: Sequential compression devices. Problems: Subjective 24 Hr Interval Summary Constitutional: no complaints Exam/Review of Systems Vital Signs Vitals Vital Signs Date Time Temp Pulse Resp B/P Pulse Ox O2 Delivery O2 Flow Rate FiO2 05/09/16 14:23 99.0 96 19 137/80 96 05/08/16 20:00 Nasal Cannula 2.0 Intake and Output 05/08/16 05/08/16 05/09/16 15:00 23:00 07:00 Intake Total 0 ml 1600 ml 1257 ml Balance 0 ml 1600 ml 1257 ml Exam GENERAL: NAD HEENT: NCAT LUNGS: Clear to auscultation bilaterally CARDIOVASCULAR: S1, S2 heard. No rubs or gallops. ABDOMEN: Soft, nontender, nondistended. Normal bowel sounds. No rebound or guarding. NEUROLOGIC: No focal deficits EXT- No c/c/e Results Result Diagram: 05/09/1660405/09/16604 Results 24 hrs Laboratory Tests Test 05/08/16 18:02 05/09/16 06:05 Hematocrit 26.8 L 27.1 L Hemoglobin 9.0 L 9.1 L Anion Gap 12 Band Neutrophils % 3.0 Basophils # 0.1 Basophils % 1.0 Blood Morphology Comment Blood Urea Nitrogen 9 Calcium Level 8.2 L Carbon Dioxide Level 27 Chloride Level 103 Creatinine 0.59 L Differential Comment MANUAL DIFF Eosinophils # 0.1 Eosinophils % 1.0 Glucose Level 173 Lymphocytes # 0.4 L Lymphocytes % 7.0 L Mean Corpuscular Hemoglobin 32.0 Mean Corpuscular Hemoglobin Concent 33.8 Mean Corpuscular Volume 94.7 Mean Platelet Volume 8.0 Monocytes # 0.4 Monocytes % 6.0 Neutrophils # 5.1 Neutrophils % 82.0 H Platelet Count 171 Potassium Level 3.6 Red Blood Count 2.86 L Red Cell Distribution Width 19.0 H Sodium Level 138 White Blood Count 6.2 # Medications Medications Current Medications Potassium Chloride/Dextrose/ Sod Cl (D5-1/2ns + KCl 20 Meq) 1,000 ml @ 100 mls/ hr Q10H IV Last administered on 05/09/16at 12:13; Admin Dose 100 MLS/HR; Start 05/07/16 at 19:09 Ondansetron HCl (Zofran Inj) 4 mg Q6H PRN IV NAUSEA AND/OR VOMITING; Start 05/07/16 at 19:30 Morphine Sulfate (morphine) 2 mg Q4H PRN IV SEVERE PAIN LEVEL 7-10 Last administered on 05/08/16at 20:08; Admin Dose 2 MG; Start 05/07/16 at 19:30 Docusate Sodium (Colace) 100 mg Q12H PRN PO CONSTIPATION; Start 05/07/16 at 19: 30 ZHENG VERA May 09, 2016 15:25
--- NOTE | 2016-05-09 16:21 | CONS ---
Date/Time of Note Date/Time of Note DATE: 05/09/16 TIME: 16:17 Assessment/Plan Assessment/Plan Additional Assessment/Plan Hematemesis s/p EGD: Grade IV/IV esophageal varices with stigmata of recent bleeding "white plug."Post-endoscopic variceal ligation x4. Anemia Abdominal pain Nausea History of EtOH abuse Ascites Transaminitis, acute hepatitis serology negative Plan: Start PPI daily by mouth Monitor H&H every 6 hours, transfuse 2 units for Hgb <7.5 Advance diet as tolerated Patient should be followed up with an EGD and possible further banding in 8 to 12 weeks. Further recommendations depend on clinical course Patient seen in collaboration with Dr. Ochoa Consultation Date/Type/Reason Admit Date/Time May 07, 2016 at 14:39 Initial Consult Date 24 HR Interval Summary Free Text/Dictation Patient tolerating full liquids Denies nausea vomiting and abdominal pain Hemoglobin stable AST and alk phos trending downward Exam/Review of Systems Vital Signs Vitals Vital Signs Date Time Temp Pulse Resp B/P Pulse Ox O2 Delivery O2 Flow Rate FiO2 05/09/16 14:23 99.0 96 19 137/80 96 05/08/16 20:00 Nasal Cannula 2.0 Intake and Output 05/08/16 05/08/16 05/09/16 15:00 23:00 07:00 Intake Total 0 ml 1600 ml 1257 ml Balance 0 ml 1600 ml 1257 ml Exam Constitutional: alert, frail, oriented Psych: nl mood/affect Eyes: EOMI Respiratory: clear to auscultation Cardiovascular: regular rate and rhythm Gastrointestinal: distended, firm Neurological: INTERTYPE OPERATOR II-XII intact Results Result Diagram: 05/09/16 0605/09/16 0605 Results 24 hrs Laboratory Tests Test 05/08/16 18:02 05/09/16 06:05 Hematocrit 26.8 L 27.1 L Hemoglobin 9.0 L 9.1 L Anion Gap 12 Band Neutrophils % 3.0 Basophils # 0.1 Basophils % 1.0 Blood Morphology Comment Blood Urea Nitrogen 9 Calcium Level 8.2 L Carbon Dioxide Level 27 Chloride Level 103 Creatinine 0.59 L Differential Comment MANUAL DIFF Eosinophils # 0.1 Eosinophils % 1.0 Glucose Level 173 Lymphocytes # 0.4 L Lymphocytes % 7.0 L Mean Corpuscular Hemoglobin 32.0 Mean Corpuscular Hemoglobin Concent 33.8 Mean Corpuscular Volume 94.7 Mean Platelet Volume 8.0 Monocytes # 0.4 Monocytes % 6.0 Neutrophils # 5.1 Neutrophils % 82.0 H Platelet Count 171 Potassium Level 3.6 Red Blood Count 2.86 L Red Cell Distribution Width 19.0 H Sodium Level 138 White Blood Count 6.2 # Medications Medications Current Medications Potassium Chloride/Dextrose/ Sod Cl (D5-1/2ns + KCl 20 Meq) 1,000 ml @ 100 mls/ hr Q10H IV Last administered on 05/09/16at 12:13; Admin Dose 100 MLS/HR; Start 05/07/16 at 19:09 Ondansetron HCl (Zofran Inj) 4 mg Q6H PRN IV NAUSEA AND/OR VOMITING; Start 05/07/16 at 19:30 Morphine Sulfate (morphine) 2 mg Q4H PRN IV SEVERE PAIN LEVEL 7-10 Last administered on 05/08/16at 20:08; Admin Dose 2 MG; Start 05/07/16 at 19:30 Docusate Sodium (Colace) 100 mg Q12H PRN PO CONSTIPATION; Start 05/07/16 at 19: 30 Pantoprazole 40 mg 40 mg DAILY@06 PO ; Start 05/10/16 at 06:00; Status UNV Multivitamins/ Thiamine HCl/ Folic Acid/Sodium Chloride (Mvi-12 Adult/ Vitamin B1/Folic Acid/NS) 1,011.2 ml @ 125 mls/ hr DAILY@09 IVPB ; Start 05/09/16 at 16 :30; Status UNV Lorazepam (Ativan) 1 mg Q2 PRN IV AGITATION/ANXIETY; Start 05/09/16 at 16:30; Status UNV Chlordiazepoxide (Librium) 50 mg TID PO ; Start 05/09/16 at 21:00; Status UNV GEOVANNI ALMODOVAR May 09, 2016 16:20 Multivitamins/ Thiamine HCl/ Folic Acid/Sodium Chloride (Mvi-12 Adult/ Vitamin B1/Folic Acid/NS) 1,011.2 ml @ 125 mls/ hr DAILY@09 IVPB ; Start 05/09/16 at 16 :30; Status UNV Lorazepam (Ativan) 1 mg Q2 PRN IV AGITATION/ANXIETY; Start 05/09/16 at 16:30; Status UNV Chlordiazepoxide (Librium) 50 mg TID PO ; Start 05/09/16 at 21:00; Status GEOVANNI STINSON May 09, 2016 16:20
[2016-05-09] MEDS ORDERED: LORAZEPAM 2 MG INJ IV PRN (16:30)
[2016-05-09] MEDS: MULTIVITAMINS 10 ML, THIAMINE 100 MG, FOLIC ACID 1 MG in SOD CHLORIDE 0.9% 1,000 ML IVPB SCH (17:24)
[2016-05-09] MEDS ORDERED: CHLORDIAZEPOXIDE 25 MG CAP PO SCH (21:00)
[2016-05-10] MEDS: CHLORDIAZEPOXIDE 25 MG CAP PO SCH ×4 (00:52→21:37)
[2016-05-10] MEDS: D5W-0.45 NACL + KCL 20 MEQ 1,000 ML IV SCH ×2 (02:31→12:47)
[2016-05-10 05:25] LABS: HEMATOCRIT 28.4 % (42.0-52.0); HEMOGLOBIN 9.4 g/dl (14.0-18.0); MEAN CORPUSCULAR HEMOGLOBIN 31.4 pg (29.0-33.0); MEAN CORPUSCULAR HGB CONC 33.1 g/dl (32.0-37.0); MEAN CORPUSCULAR VOLUME 94.8 fl (82.0-101.0); MEAN PLATELET VOLUME 8.1 fl (7.4-10.4); PLATELET COUNT 169 10^3/UL (140-440); RED BLOOD COUNT 2.99 10^6/ul (4.70-6.10); RED CELL DISTRIBUTION WIDTH 18.9 % (11.5-14.5); UNCORRECTED WBC 6.8 10^3/ul (4.8-10.8); WHITE BLOOD COUNT 6.8 10^3/ul (4.8-10.8)
[2016-05-10 06:07] LABS: CONDITION 1; LH ANALYZER COMMENTS 1
[2016-05-10 06:25] LABS: POTASSIUM 3.7 mmol/L (3.5-5.1)
[2016-05-10] MEDS: PANTOPRAZOLE (EC) 40 MG TAB PO SCH (06:43)
[2016-05-10 08:00] VITALS: BP 147/86; PULSE 98; RESP 18
[2016-05-10 08:15] LABS: CALCIUM 7.8 mg/dl (8.4-10.2); CREATININE 0.58 mg/dl (0.61-1.24)
[2016-05-10] MEDS: MULTIVITAMINS 10 ML, THIAMINE 100 MG, FOLIC ACID 1 MG in SOD CHLORIDE 0.9% 1,000 ML IVPB SCH (09:00)
--- NOTE | 2016-05-10 09:39 | CONS ---
Date/Time of Note Date/Time of Note DATE: 05/10/16 TIME: 09:39 Assessment/Plan Assessment/Plan Additional Assessment/Plan Hematemesis s/p EGD: Grade IV/IV esophageal varices with stigmata of recent bleeding "white plug."Post-endoscopic variceal ligation x4. Anemia Abdominal pain Nausea History of EtOH abuse Ascites Transaminitis, acute hepatitis serology negative Plan: PPI daily Monitor H&H every 6 hours, transfuse 2 units for Hgb <7.5 Ultrasound paracentesis when necessary Advance diet as tolerated Patient should be followed up with an EGD and possible further banding in 8 to 12 weeks. Further recommendations depend on clinical course Patient seen in collaboration with Dr. Ochoa Consultation Date/Type/Reason Admit Date/Time May 07, 2016 at 14:39 24 HR Interval Summary Free Text/Dictation No reports of hematemesis Worsening abdominal distention Less responsive and coughing more Well order ultrasound paracentesis and chest x-ray Exam/Review of Systems Vital Signs Vitals Vital Signs Date Time Temp Pulse Resp B/P Pulse Ox O2 Delivery O2 Flow Rate FiO2 05/09/16 20:00 98.0 100 19 153/78 96 Room Air 05/08/16 20:00 2.0 Intake and Output 05/09/16 05/09/16 05/10/16 14:59 22:59 06:59 Intake Total 88 ml 987.5 ml 1665 ml Balance 88 ml 987.5 ml 1665 ml Exam Constitutional: alert, distress (Mildly) Psych: confusion Respiratory: normal air movement Cardiovascular: regular rate and rhythm Gastrointestinal: distended, firm Results Result Diagram: 05/10/16 0448 05/10/16 0444 Results 24 hrs Laboratory Tests Test 05/10/16 04:44 05/10/16 04:48 Anion Gap 13 Blood Urea Nitrogen 5 L Calcium Level 7.8 L Carbon Dioxide Level 23 Chloride Level 104 Creatinine 0.58 L Glucose Level 118 # Potassium Level 3.7 Sodium Level 136 Blood Morphology Comment Hematocrit 28.4 L Hemoglobin 9.4 L Mean Corpuscular Hemoglobin 31.4 Mean Corpuscular Hemoglobin Concent 33.1 Mean Corpuscular Volume 94.8 Mean Platelet Volume 8.1 Platelet Count 169 Red Blood Count 2.99 L Red Cell Distribution Width 18.9 H White Blood Count 6.8 Medications Medications Current Medications Potassium Chloride/Dextrose/ Sod Cl (D5-1/2ns + KCl 20 Meq) 1,000 ml @ 100 mls/ hr Q10H IV Last administered on 05/10/16at 02:31; Admin Dose 100 MLS/HR; Start 05/07/16 at 19:09 Ondansetron HCl (Zofran Inj) 4 mg Q6H PRN IV NAUSEA AND/OR VOMITING; Start 05/07/16 at 19:30 Morphine Sulfate (morphine) 2 mg Q4H PRN IV SEVERE PAIN LEVEL 7-10 Last administered on 05/08/16at 20:08; Admin Dose 2 MG; Start 05/07/16 at 19:30 Docusate Sodium (Colace) 100 mg Q12H PRN PO CONSTIPATION; Start 05/07/16 at 19: 30 Pantoprazole 40 mg 40 mg DAILY@06 PO Last administered on 05/10/16at 06:43; Admin Dose 40 MG; Start 05/10/16 at 06:00 Multivitamins/ Thiamine HCl/ Folic Acid/Sodium Chloride (Mvi-12 Adult/ Vitamin B1/Folic Acid/NS) 1,011.2 ml @ 125 mls/ hr DAILY@09 IVPB Last administered on 05/09/16at 17:24; Admin Dose 125 MLS/HR; Start 05/09/16 at 16:30 Lorazepam (Ativan) 1 mg Q2 PRN IV AGITATION/ANXIETY; Start 05/09/16 at 16:30 Chlordiazepoxide (Librium) 50 mg TID PO Last administered on 05/10/16at 08:21; Admin Dose 50 MG; Start 05/09/16 at 21:00 GEOVANNI ALMODOVAR May 10, 2016 09:39
[2016-05-10 10:47] LABS: INR 1.47; PROTIME 17.9 Sec (12.2-14.2); PT RATIO 1.4
[2016-05-10 10:48] LABS: PARTIAL THROMBOPLASTIN TIME 33.7 Sec (25.0-35.0)
[2016-05-10 11:03] LABS: BASOPHIL # 0.1 10^3/ul (0.0-0.1); EOSINOPHILS # 0.1 10^3/ul (0.0-0.5); LYMPHOCYTES # 1.3 10^3/ul (0.8-2.9); MONOCYTE # 0.3 10^3/ul (0.3-0.9); NEUTROPHIL # 4.8 10^3/ul (1.6-7.5)
--- NOTE | 2016-05-10 11:31 | RADRPT ---
PROCEDURE: Chest x-ray CLINICAL INDICATION: Wheezing TECHNIQUE: Chest single view COMPARISON: 05/07/2016 FINDINGS: The heart is normal in size. The pulmonary vessels are normal in caliber. The lungs are clear. Th e costophrenic angles are sharp. The visualized bony thorax is unremarkable. IMPRESSION: No acute cardiopulmonary disease. Low lung volumes RPTAT: HH .Wander Costa MD, Date Time Electronically viewed and signed by .Wander Costa MD, on 05/10/2016 11:31 .W/
--- NOTE | 2016-05-10 14:22 | PN ---
Date/Time of Note Date/Time of Note DATE: 05/10/16 TIME: 14:18 Assessment/Plan VTE Prophylaxis VTE Prophylaxis Intervention: SCD's Lines/Catheters [facility] Peripheral IV Urinary Cath still in place: No Assessment/Plan Chief Complaint/Hosp Course 1. Upper gastrointestinal bleed possible secondary to esophageal varices versus gastric ulcer- The patient does have a history of alcohol abuse GI consult appreciated, EGD done and showed multiple esophageal varices status post ligation Monitor hemoglobin overnight and will DC home tomorrow if stable DC octreotide and Protonix drips 2. Acute on chronic anemia 2/2 Blood loss- stable Workup is normal with normal iron as well as normal vitamin B12 and folate 3. 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 Prophylaxis: Sequential compression devices. Problems: Subjective 24 Hr Interval Summary Constitutional: disoriented Exam/Review of Systems Vital Signs Vitals Vital Signs Date Time Temp Pulse Resp B/P Pulse Ox O2 Delivery O2 Flow Rate FiO2 05/10/16 08:00 98.8 98 18 147/86 96 Room Air 05/08/16 20:00 2.0 Intake and Output 05/09/16 05/09/16 05/10/16 14:59 22:59 06:59 Intake Total 88 ml 987.5 ml 1665 ml Balance 88 ml 987.5 ml 1665 ml Exam Psych: confusion Respiratory: clear to auscultation Cardiovascular: regular rate and rhythm Gastrointestinal: soft, No distended Musculoskeletal: nl extremities to inspection Results Result Diagram: 05/10/16 0448 05/10/16 0444 Results 24 hrs Laboratory Tests Test 05/10/16 04:44 05/10/16 04:48 05/10/16 10:00 Anion Gap 13 Blood Urea Nitrogen 5 L Calcium Level 7.8 L Carbon Dioxide Level 23 Chloride Level 104 Creatinine 0.58 L Glucose Level 118 # Potassium Level 3.7 Sodium Level 136 Band Neutrophils % 4.0 Basophils # 0.1 Basophils % 1.0 Blood Morphology Comment Differential Comment MANUAL DIFF Eosinophils # 0.1 Eosinophils % 1.0 Hematocrit 28.4 L Hemoglobin 9.4 L Lymphocytes # 1.3 Lymphocytes % 19.0 Mean Corpuscular Hemoglobin 31.4 Mean Corpuscular Hemoglobin Concent 33.1 Mean Corpuscular Volume 94.8 Mean Platelet Volume 8.1 Monocytes # 0.3 Monocytes % 5.0 Neutrophils # 4.8 Neutrophils % 70.0 Platelet Count 169 Red Blood Count 2.99 L Red Cell Distribution Width 18.9 H White Blood Count 6.8 Activated Partial Thromboplast Time 33.7 INR International Normalized Ratio 1.47 Prothrombin Time 17.9 H Prothrombin Time Ratio 1.4 Medications Medications Current Medications Potassium Chloride/Dextrose/ Sod Cl (D5-1/2ns + KCl 20 Meq) 1,000 ml @ 100 mls/ hr Q10H IV Last administered on 05/10/16at 12:47; Admin Dose 100 MLS/HR; Start 05/07/16 at 19:09 Ondansetron HCl (Zofran Inj) 4 mg Q6H PRN IV NAUSEA AND/OR VOMITING; Start 05/07/16 at 19:30 Morphine Sulfate (morphine) 2 mg Q4H PRN IV SEVERE PAIN LEVEL 7-10 Last administered on 05/08/16at 20:08; Admin Dose 2 MG; Start 05/07/16 at 19:30 Docusate Sodium (Colace) 100 mg Q12H PRN PO CONSTIPATION; Start 05/07/16 at 19: 30 Pantoprazole 40 mg 40 mg DAILY@06 PO Last administered on 05/10/16at 06:43; Admin Dose 40 MG; Start 05/10/16 at 06:00 Multivitamins/ Thiamine HCl/ Folic Acid/Sodium Chloride (Mvi-12 Adult/ Vitamin B1/Folic Acid/NS) 1,011.2 ml @ 125 mls/ hr DAILY@09 IVPB Last administered on 05/09/16at 17:24; Admin Dose 125 MLS/HR; Start 05/09/16 at 16:30 Lorazepam (Ativan) 1 mg Q2 PRN IV AGITATION/ANXIETY; Start 05/09/16 at 16:30 Chlordiazepoxide (Librium) 25 mg TID PO Last administered on 05/10/16at 12:49; Admin Dose 25 MG; Start 05/10/16 at 13:00 Furosemide (Lasix) 40 mg DAILY IV ; Start 05/10/16 at 14:30; Status UNZHENG RAMOS May 10, 2016 14:22
[2016-05-10] MEDS: FUROSEMIDE 40 MG INJ IV SCH (14:45)
[2016-05-10] MEDS: ALBUTEROL/IPRATROPIUM (NEB) 3 ML AMP HHN PRN (15:55)
[2016-05-10 23:22] VITALS: BP 114/78; PULSE 108; RESP 18
[2016-05-11] MEDS: D5W-0.45 NACL + KCL 20 MEQ 1,000 ML IV SCH ×3 (03:09→17:22)
[2016-05-11 05:50] LABS: HEMATOCRIT 29.4 % (42.0-52.0); HEMOGLOBIN 9.8 g/dl (14.0-18.0); MEAN CORPUSCULAR HEMOGLOBIN 31.7 pg (29.0-33.0); MEAN CORPUSCULAR HGB CONC 33.3 g/dl (32.0-37.0); MEAN CORPUSCULAR VOLUME 95.2 fl (82.0-101.0); MEAN PLATELET VOLUME 8.1 fl (7.4-10.4); PLATELET COUNT 195 10^3/UL (140-440); RED BLOOD COUNT 3.09 10^6/ul (4.70-6.10); RED CELL DISTRIBUTION WIDTH 18.6 % (11.5-14.5)
[2016-05-11] MEDS: FUROSEMIDE 40 MG INJ IV SCH (06:00)
[2016-05-11] MEDS: PANTOPRAZOLE (EC) 40 MG TAB PO SCH (06:00)
[2016-05-11 06:11] LABS: CONDITION 1; LH ANALYZER COMMENTS 1
[2016-05-11 06:21] LABS: POTASSIUM 3.6 mmol/L (3.5-5.1)
[2016-05-11 06:24] LABS: CALCIUM 8.1 mg/dl (8.4-10.2); CREATININE 0.59 mg/dl (0.61-1.24)
[2016-05-11 08:00] VITALS: BP 111/68; PULSE 106; RESP 25
[2016-05-11] MEDS: MULTIVITAMINS 10 ML, THIAMINE 100 MG, FOLIC ACID 1 MG in SOD CHLORIDE 0.9% 1,000 ML IVPB SCH (08:29)
[2016-05-11] MEDS: CHLORDIAZEPOXIDE 25 MG CAP PO SCH ×3 (08:29→20:25)
[2016-05-11 09:34] LABS: EOSINOPHILS # 0.2 10^3/ul (0.0-0.5); LYMPHOCYTES # 0.8 10^3/ul (0.8-2.9); MONOCYTE # 0.4 10^3/ul (0.3-0.9); NEUTROPHIL # 6.4 10^3/ul (1.6-7.5)
--- NOTE | 2016-05-11 09:36 | CONS ---
Date/Time of Note Date/Time of Note DATE: 05/11/16 TIME: 09:34 Assessment/Plan Assessment/Plan Additional Assessment/Plan Hematemesis s/p EGD: Grade IV/IV esophageal varices with stigmata of recent bleeding "white plug."Post-endoscopic variceal ligation x4. Anemia Abdominal pain Nausea History of EtOH abuse Ascites Transaminitis, acute hepatitis serology negative Plan: Continue Lasix, Aldactone, and PPI Monitor H&H every 6 hours, transfuse 2 units for Hgb <7.5 Ultrasound paracentesis when necessary Advance diet as tolerated Patient should be followed up with an EGD and possible further banding in 8 to 12 weeks. Further recommendations depend on clinical course Patient seen in collaboration with Dr. Ochoa Consultation Date/Type/Reason Admit Date/Time May 07, 2016 at 14:39 24 HR Interval Summary Free Text/Dictation Hemoglobin stable less agitated today Tolerating full liquid diet Exam/Review of Systems Vital Signs Vitals Vital Signs Date Time Temp Pulse Resp B/P Pulse Ox O2 Delivery O2 Flow Rate FiO2 05/10/16 23:22 99.1 108 18 114/78 93 Room Air 05/10/16 15:58 21 05/08/16 20:00 2.0 Intake and Output 05/10/16 05/10/16 05/11/16 15:00 23:00 07:00 Intake Total 1240 ml Balance 1240 ml Exam Constitutional: alert, distress (Mildly) Psych: confusion Respiratory: normal air movement Cardiovascular: regular rate and rhythm Gastrointestinal: distended, firm Results Result Diagram: 05/11/16 0445 05/11/16 0445 Results 24 hrs Laboratory Tests Test 05/10/16 10:00 05/11/16 04:45 Activated Partial Thromboplast Time 33.7 INR International Normalized Ratio 1.47 Prothrombin Time 17.9 H Prothrombin Time Ratio 1.4 Anion Gap 11 Band Neutrophils % 2.0 Blood Morphology Comment Blood Urea Nitrogen 5 L Calcium Level 8.1 L Carbon Dioxide Level 27 Chloride Level 101 Creatinine 0.59 L Differential Comment MANUAL DIFF Eosinophils # 0.2 Eosinophils % 3.0 Glucose Level 97 Hematocrit 29.4 L Hemoglobin 9.8 L Lymphocytes # 0.8 Lymphocytes % 10.0 L Mean Corpuscular Hemoglobin 31.7 Mean Corpuscular Hemoglobin Concent 33.3 Mean Corpuscular Volume 95.2 Mean Platelet Volume 8.1 Monocytes # 0.4 Monocytes % 5.0 Neutrophils # 6.4 Neutrophils % 80.0 H Platelet Count 195 Potassium Level 3.6 Red Blood Count 3.09 L Red Cell Distribution Width 18.6 H Sodium Level 135 White Blood Count 8.0 Medications Medications Current Medications Potassium Chloride/Dextrose/ Sod Cl (D5-1/2ns + KCl 20 Meq) 1,000 ml @ 100 mls/ hr Q10H IV Last administered on 05/10/16at 12:47; Admin Dose 100 MLS/HR; Start 05/07/16 at 19:09 Ondansetron HCl (Zofran Inj) 4 mg Q6H PRN IV NAUSEA AND/OR VOMITING; Start 05/07/16 at 19:30 Morphine Sulfate (morphine) 2 mg Q4H PRN IV SEVERE PAIN LEVEL 7-10 Last administered on 05/08/16at 20:08; Admin Dose 2 MG; Start 05/07/16 at 19:30 Docusate Sodium (Colace) 100 mg Q12H PRN PO CONSTIPATION; Start 05/07/16 at 19: 30 Pantoprazole 40 mg 40 mg DAILY@06 PO Last administered on 05/11/16 06:00; Admin Dose 40 MG; Start 05/10/16 at 06:00 Multivitamins/ Thiamine HCl/ Folic Acid/Sodium Chloride (Mvi-12 Adult/ Vitamin B1/Folic Acid/NS) 1,011.2 ml @ 125 mls/ hr DAILY@09 IVPB Last administered on 05/11/16 08:29; Admin Dose 125 MLS/HR; Start 05/09/16 at 16:30 Lorazepam (Ativan) 1 mg Q2 PRN IV AGITATION/ANXIETY; Start 05/09/16 at 16:30 Chlordiazepoxide (Librium) 25 mg TID PO Last administered on 05/11/16at 08:29; Admin Dose 25 MG; Start 05/10/16 at 13:00 Furosemide (Lasix) 40 mg DAILY@06 IV Last administered on 05/11/16at 06:00; Admin Dose 40 MG; Start 05/10/16 at 14:30 GEOVANNI ALMODOVAR May 11, 2016 09:36
[2016-05-11] MEDS: SPIRONOLACTONE 25 MG TAB PO SCH ×2 (10:35→17:21)
--- NOTE | 2016-05-11 11:17 | PN ---
Date/Time of Note Date/Time of Note DATE: 05/11/16 TIME: 11:14 Assessment/Plan VTE Prophylaxis VTE Prophylaxis Intervention: SCD's Lines/Catheters IV C[facility]ter Type (from [facility]): [facility] Urinary Cath still in place: No Assessment/Plan Chief Complaint/Hosp Course 1. Upper gastrointestinal bleed secondary to esophageal varices-The patient does have a history of alcohol abuse GI consult appreciated, EGD done and showed multiple esophageal varices status post ligation H an H is stable Status post octreotide and Protonix drips 2. Acute on chronic anemia 2/2 Blood loss- stable Workup is normal with normal iron as well as normal vitamin B12 and folate 3. 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 Homelessness logging worker consultation 5. Prophylaxis: Sequential compression devices. Problems: Subjective 24 Hr Interval Summary Constitutional: disoriented Exam/Review of Systems Vital Signs Vitals Vital Signs Date Time Temp Pulse Resp B/P Pulse Ox O2 Delivery O2 Flow Rate FiO2 05/11/16 08:00 98.6 106 25 111/68 92 Room Air 05/10/16 15:58 21 05/08/16 20:00 2.0 Intake and Output 05/10/16 05/10/16 05/11/16 15:00 23:00 07:00 Intake Total 1240 ml Balance 1240 ml Exam Constitutional: non-verbal Psych: confusion Respiratory: clear to auscultation Cardiovascular: regular rate and rhythm Gastrointestinal: distended, soft Musculoskeletal: nl extremities to inspection Results Result Diagram: 05/11/16 0445 05/11/16 0445 Results 24 hrs Laboratory Tests Test 05/11/16 04:45 Anion Gap 11 Band Neutrophils % 2.0 Blood Morphology Comment Blood Urea Nitrogen 5 L Calcium Level 8.1 L Carbon Dioxide Level 27 Chloride Level 101 Creatinine 0.59 L Differential Comment MANUAL DIFF Eosinophils # 0.2 Eosinophils % 3.0 Glucose Level 97 Hematocrit 29.4 L Hemoglobin 9.8 L Lymphocytes # 0.8 Lymphocytes % 10.0 L Mean Corpuscular Hemoglobin 31.7 Mean Corpuscular Hemoglobin Concent 33.3 Mean Corpuscular Volume 95.2 Mean Platelet Volume 8.1 Monocytes # 0.4 Monocytes % 5.0 Neutrophils # 6.4 Neutrophils % 80.0 H Platelet Count 195 Potassium Level 3.6 Red Blood Count 3.09 L Red Cell Distribution Width 18.6 H Sodium Level 135 White Blood Count 8.0 Medications Medications Current Medications Potassium Chloride/Dextrose/ Sod Cl (D5-1/2ns + KCl 20 Meq) 1,000 ml @ 100 mls/ hr Q10H IV Last administered on 05/10/16at 12:47; Admin Dose 100 MLS/HR; Start 05/07/16 at 19:09 Ondansetron HCl (Zofran Inj) 4 mg Q6H PRN IV NAUSEA AND/OR VOMITING; Start 05/07/16 at 19:30 Morphine Sulfate (morphine) 2 mg Q4H PRN IV SEVERE PAIN LEVEL 7-10 Last administered on 05/08/16at 20:08; Admin Dose 2 MG; Start 05/07/16 at 19:30 Docusate Sodium (Colace) 100 mg Q12H PRN PO CONSTIPATION; Start 05/07/16 at 19: 30 Pantoprazole 40 mg 40 mg DAILY@06 PO Last administered on 05/11/16 06:00; Admin Dose 40 MG; Start 05/10/16 at 06:00 Multivitamins/ Thiamine HCl/ Folic Acid/Sodium Chloride (Mvi-12 Adult/ Vitamin B1/Folic Acid/NS) 1,011.2 ml @ 125 mls/ hr DAILY@09 IVPB Last administered on 05/11/16 08:29; Admin Dose 125 MLS/HR; Start 05/09/16 at 16:30 Lorazepam (Ativan) 1 mg Q2 PRN IV AGITATION/ANXIETY; Start 05/09/16 at 16:30 Chlordiazepoxide (Librium) 25 mg TID PO Last administered on 05/11/16 08:29; Admin Dose 25 MG; Start 05/10/16 at 13:00 Furosemide (Lasix) 40 mg DAILY@06 IV Last administered on 05/11/16 06:00; Admin Dose 40 MG; Start 05/10/16 at 14:30 ZHENG VERA May 11, 2016 11:17
[2016-05-11 20:00] VITALS: BP 172/96; PULSE 132; RESP 20
[2016-05-11] MEDS ORDERED: METOPROLOL 25 MG TAB PO ONE (20:00)
[2016-05-11] MEDS: LEVALBUTEROL (NEB) 1.25 MG/0.5 ML AMP HHN PRN (20:32)
[2016-05-11 22:00] VITALS: BP 133/76; PULSE 103; RESP 18
[2016-05-12] MEDS: D5W-0.45 NACL + KCL 20 MEQ 1,000 ML IV SCH ×3 (03:27→18:33)
[2016-05-12] MEDS: LEVALBUTEROL (NEB) 1.25 MG/0.5 ML AMP HHN PRN ×2 (05:45→22:34)
[2016-05-12] MEDS: FUROSEMIDE 40 MG INJ IV SCH (05:48)
[2016-05-12] MEDS: PANTOPRAZOLE (EC) 40 MG TAB PO SCH (05:49)
[2016-05-12] MEDS: SPIRONOLACTONE 25 MG TAB PO SCH ×2 (05:49→18:00)
[2016-05-12 06:02] LABS: HEMATOCRIT 30.5 % (42.0-52.0); HEMOGLOBIN 10.2 g/dl (14.0-18.0); MEAN CORPUSCULAR HEMOGLOBIN 31.9 pg (29.0-33.0); MEAN CORPUSCULAR HGB CONC 33.3 g/dl (32.0-37.0); MEAN CORPUSCULAR VOLUME 95.9 fl (82.0-101.0); MEAN PLATELET VOLUME 8.4 fl (7.4-10.4); PLATELET COUNT 212 10^3/UL (140-440); RED BLOOD COUNT 3.18 10^6/ul (4.70-6.10); RED CELL DISTRIBUTION WIDTH 19.2 % (11.5-14.5); UNCORRECTED WBC 9.7 10^3/ul (4.8-10.8); WHITE BLOOD COUNT 9.7 10^3/ul (4.8-10.8)
[2016-05-12 06:06] LABS: POTASSIUM 3.6 mmol/L (3.5-5.1)
[2016-05-12 06:08] LABS: CREATININE 0.62 mg/dl (0.61-1.24)
[2016-05-12 06:09] LABS: CALCIUM 8.3 mg/dl (8.4-10.2)
[2016-05-12 06:28] LABS: CONDITION 1; LH ANALYZER COMMENTS 1
[2016-05-12 07:46] LABS: LYMPHOCYTES # 1.2 10^3/ul (0.8-2.9); MONOCYTE # 0.5 10^3/ul (0.3-0.9); NEUTROPHIL # 7.9 10^3/ul (1.6-7.5)
[2016-05-12 08:00] VITALS: BP 123/79; PULSE 103; RESP 22
[2016-05-12] MEDS: CHLORDIAZEPOXIDE 25 MG CAP PO SCH ×3 (09:00→20:37)
[2016-05-12] MEDS: MULTIVITAMINS 10 ML, THIAMINE 100 MG, FOLIC ACID 1 MG in SOD CHLORIDE 0.9% 1,000 ML IVPB SCH (09:00)
--- NOTE | 2016-05-12 11:04 | CONS ---
Date/Time of Note Date/Time of Note DATE: 05/12/16 TIME: 11:01 Assessment/Plan Assessment/Plan Additional Assessment/Plan Hematemesis s/p EGD: Grade IV/IV esophageal varices with stigmata of recent bleeding "white plug."Post-endoscopic variceal ligation x4. Anemia Abdominal pain Nausea History of EtOH abuse Ascites, improving Transaminitis, acute hepatitis serology negative Plan: Continue Lasix, Aldactone, and PPI Monitor H&H every 6 hours, transfuse 2 units for Hgb <7.5 Ultrasound paracentesis when necessary Lactulose 3 times a day to produce 2-3 bowel movements per day Advance diet as tolerated Patient should be followed up with an EGD and possible further banding in 8 to 12 weeks. Further recommendations depend on clinical course Patient seen in collaboration with Dr. Ochoa Consultation Date/Type/Reason Admit Date/Time May 07, 2016 at 14:39 24 HR Interval Summary Free Text/Dictation Patient asleep and noted to be more lethargic We will start on lactulose Patient oxygen saturation improving with breathing treatments Tolerating diets No reports of nausea vomiting Hemoglobin stable Exam/Review of Systems Vital Signs Vitals Vital Signs Date Time Temp Pulse Resp B/P Pulse Ox O2 Delivery O2 Flow Rate FiO2 05/12/16 08:00 98.3 103 22 123/79 99 Room Air 05/12/16 05:45 2.0 05/11/16 19:37 21 Intake and Output 05/11/16 05/11/16 05/12/16 15:00 23:00 07:00 Intake Total 1971.2 ml 1320 ml Output Total 200 ml Balance 1971.2 ml 1120 ml Exam Constitutional: Asleep, NAD Psych: confusion Respiratory: normal air movement Cardiovascular: regular rate and rhythm Gastrointestinal: distended, firm Results Result Diagram: 05/12/16 0410 05/12/16 0410 Results 24 hrs Laboratory Tests Test 05/12/16 04:10 Ammonia 94 H Anion Gap 11 Band Neutrophils % 2.0 Blood Morphology Comment Blood Urea Nitrogen 9 Calcium Level 8.3 L Carbon Dioxide Level 27 Chloride Level 101 Creatinine 0.62 Differential Comment MANUAL DIFF Glucose Level 116 Hematocrit 30.5 L Hemoglobin 10.2 L Lymphocytes # 1.2 Lymphocytes % 12.0 L Mean Corpuscular Hemoglobin 31.9 Mean Corpuscular Hemoglobin Concent 33.3 Mean Corpuscular Volume 95.9 Mean Platelet Volume 8.4 Monocytes # 0.5 Monocytes % 5.0 Neutrophils # 7.9 H Neutrophils % 81.0 H Nucleated Red Blood Cells % 1.0 H Platelet Count 212 Potassium Level 3.6 Red Blood Count 3.18 L Red Cell Distribution Width 19.2 H Sodium Level 135 White Blood Count 9.7 # Medications Medications Current Medications Potassium Chloride/Dextrose/ Sod Cl (D5-1/2ns + KCl 20 Meq) 1,000 ml @ 100 mls/ hr Q10H IV Last administered on 05/12/16at 03:27; Admin Dose 100 MLS/HR; Start 05/07/16 at 19:09 Ondansetron HCl (Zofran Inj) 4 mg Q6H PRN IV NAUSEA AND/OR VOMITING; Start 05/07/16 at 19:30 Morphine Sulfate (morphine) 2 mg Q4H PRN IV SEVERE PAIN LEVEL 7-10 Last administered on 05/08/16at 20:08; Admin Dose 2 MG; Start 05/07/16 at 19:30 Docusate Sodium (Colace) 100 mg Q12H PRN PO CONSTIPATION; Start 05/07/16 at 19: 30 Pantoprazole 40 mg 40 mg DAILY@06 PO Last administered on 05/12/16at 05:49; Admin Dose 40 MG; Start 05/10/16 at 06:00 Multivitamins/ Thiamine HCl/ Folic Acid/Sodium Chloride (Mvi-12 Adult/ Vitamin B1/Folic Acid/NS) 1,011.2 ml @ 125 mls/ hr DAILY@09 IVPB Last administered on 05/12/16at 09:00; Admin Dose 125 MLS/HR; Start 05/09/16 at 16:30 Lorazepam (Ativan) 1 mg Q2 PRN IV AGITATION/ANXIETY; Start 05/09/16 at 16:30 Chlordiazepoxide (Librium) 25 mg TID PO Last administered on 05/12/16at 09:00; Admin Dose 25 MG; Start 05/10/16 at 13:00 Furosemide (Lasix) 40 mg DAILY@06 IV Last administered on 05/12/16at 05:48; Admin Dose 40 MG; Start 05/10/16 at 14:30 GEOVANNI ALMODOVAR May 12, 2016 11:04
--- NOTE | 2016-05-12 11:28 | PN ---
Date/Time of Note Date/Time of Note DATE: 05/12/16 TIME: 11:23 Assessment/Plan VTE Prophylaxis VTE Prophylaxis Intervention: SCD's Lines/Catheters IV [facility] Type (from [facility] Peripheral IV Urinary Cath still in place: No Assessment/Plan Chief Complaint/Hosp Course 1. Upper gastrointestinal bleed secondary to esophageal varices-The patient does have a history of alcohol abuse GI consult appreciated, EGD done and showed multiple esophageal varices status post ligation H an H is stable Status post octreotide and Protonix drips 2. Acute on chronic anemia 2/2 Blood loss- stable Workup is normal with normal iron as well as normal vitamin B12 and folate 3. Alcohol related liver disease with ascites, patient is now in withdrawals and also with hepatic encephalopathy Ammonia level is 94 Continue with Librium, Ativan, lactulose and banana bag Continue with Lasix and Aldactone the patient will be advised for cessation social contact worker consultation 4. Homelessness outreach worker consultation 5. Prophylaxis: Sequential compression devices. Problems: Subjective 24 Hr Interval Summary Constitutional: disoriented Exam/Review of Systems Vital Signs Vitals Vital Signs Date Time Temp Pulse Resp B/P Pulse Ox O2 Delivery O2 Flow Rate FiO2 05/12/16 08:00 98.3 103 22 123/79 99 Room Air 05/12/16 05:45 2.0 05/11/16 19:37 21 Intake and Output 05/11/16 05/11/16 05/12/16 15:00 23:00 07:00 Intake Total 1971.2 ml 1320 ml Output Total 200 ml Balance 1971.2 ml 1120 ml Exam Psych: confusion Respiratory: clear to auscultation Cardiovascular: regular rate and rhythm Gastrointestinal: distended, soft Musculoskeletal: nl extremities to inspection Results Result Diagram: 05/12/16 0410 05/12/16 0410 Results 24 hrs Laboratory Tests Test 05/12/16 04:10 Ammonia 94 H Anion Gap 11 Band Neutrophils % 2.0 Blood Morphology Comment Blood Urea Nitrogen 9 Calcium Level 8.3 L Carbon Dioxide Level 27 Chloride Level 101 Creatinine 0.62 Differential Comment MANUAL DIFF Glucose Level 116 Hematocrit 30.5 L Hemoglobin 10.2 L Lymphocytes # 1.2 Lymphocytes % 12.0 L Mean Corpuscular Hemoglobin 31.9 Mean Corpuscular Hemoglobin Concent 33.3 Mean Corpuscular Volume 95.9 Mean Platelet Volume 8.4 Monocytes # 0.5 Monocytes % 5.0 Neutrophils # 7.9 H Neutrophils % 81.0 H Nucleated Red Blood Cells % 1.0 H Platelet Count 212 Potassium Level 3.6 Red Blood Count 3.18 L Red Cell Distribution Width 19.2 H Sodium Level 135 White Blood Count 9.7 # Medications Medications Current Medications Potassium Chloride/Dextrose/ Sod Cl (D5-1/2ns + KCl 20 Meq) 1,000 ml @ 100 mls/ hr Q10H IV Last administered on 05/12/16at 03:27; Admin Dose 100 MLS/HR; Start 05/07/16 at 19:09 Ondansetron HCl (Zofran Inj) 4 mg Q6H PRN IV NAUSEA AND/OR VOMITING; Start 05/07/16 at 19:30 Morphine Sulfate (morphine) 2 mg Q4H PRN IV SEVERE PAIN LEVEL 7-10 Last administered on 05/08/16at 20:08; Admin Dose 2 MG; Start 05/07/16 at 19:30 Docusate Sodium (Colace) 100 mg Q12H PRN PO CONSTIPATION; Start 05/07/16 at 19: 30 Pantoprazole 40 mg 40 mg DAILY@06 PO Last administered on 05/12/16at 05:49; Admin Dose 40 MG; Start 05/10/16 at 06:00 Multivitamins/ Thiamine HCl/ Folic Acid/Sodium Chloride (Mvi-12 Adult/ Vitamin B1/Folic Acid/NS) 1,011.2 ml @ 125 mls/ hr DAILY@09 IVPB Last administered on 05/12/16 09:00; Admin Dose 125 MLS/HR; Start 05/09/16 at 16:30 Lorazepam (Ativan) 1 mg Q2 PRN IV AGITATION/ANXIETY; Start 05/09/16 at 16:30 Chlordiazepoxide (Librium) 25 mg TID PO Last administered on 05/12/16 09:00; Admin Dose 25 MG; Start 05/10/16 at 13:00 Furosemide (Lasix) 40 mg DAILY@06 IV Last administered on 05/12/16at 05:48; Admin Dose 40 MG; Start 05/10/16 at 14:30 Lactulose (Enulose) 10 gm Q8 PO ; Start 05/12/16 at 14:00 ZHENG VERA May 12, 2016 11:28
[2016-05-12] MEDS: LACTULOSE 30ML CUP PO SCH ×2 (14:00→20:37)
[2016-05-12] MEDS: ALBUTEROL/IPRATROPIUM (NEB) 3 ML AMP HHN PRN (18:39)
[2016-05-12 20:00] VITALS: BP 125/73; PULSE 103; RESP 24
[2016-05-13] MEDS: D5W-0.45 NACL + KCL 20 MEQ 1,000 ML IV SCH ×2 (04:45→18:16)
[2016-05-13] MEDS: SPIRONOLACTONE 25 MG TAB PO SCH ×2 (05:17→17:19)
[2016-05-13] MEDS: FUROSEMIDE 40 MG INJ IV SCH (05:18)
[2016-05-13] MEDS: PANTOPRAZOLE (EC) 40 MG TAB PO SCH (05:18)
[2016-05-13] MEDS: LACTULOSE 30ML CUP PO SCH ×2 (05:23→14:00)
[2016-05-13 06:08] LABS: POTASSIUM 3.7 mmol/L (3.5-5.1)
[2016-05-13 06:11] LABS: CREATININE 0.55 mg/dl (0.61-1.24)
[2016-05-13 06:12] LABS: CALCIUM 8.1 mg/dl (8.4-10.2)
[2016-05-13 06:17] LABS: HEMOGLOBIN 9.2 g/dl (14.0-18.0); MEAN CORPUSCULAR HEMOGLOBIN 31.7 pg (29.0-33.0); MEAN CORPUSCULAR VOLUME 95.8 fl (82.0-101.0); MEAN PLATELET VOLUME 8.6 fl (7.4-10.4); PLATELET COUNT 194 10^3/UL (140-440); RED BLOOD COUNT 2.92 10^6/ul (4.70-6.10); RED CELL DISTRIBUTION WIDTH 19.4 % (11.5-14.5); UNCORRECTED WBC 7.3 10^3/ul (4.8-10.8); WHITE BLOOD COUNT 7.3 10^3/ul (4.8-10.8)
[2016-05-13 06:25] LABS: CONDITION 1; LH ANALYZER COMMENTS 1
[2016-05-13] MEDS: CHLORDIAZEPOXIDE 25 MG CAP PO SCH (08:59)
[2016-05-13] MEDS: MULTIVITAMINS 10 ML, THIAMINE 100 MG, FOLIC ACID 1 MG in SOD CHLORIDE 0.9% 1,000 ML IVPB SCH (08:59)
[2016-05-13 09:06] VITALS: BP 125/69; PULSE 104; RESP 16
[2016-05-13 09:31] LABS: BURR CELLS FEW; EOSINOPHILS # 0.3 10^3/ul (0.0-0.5); LYMPHOCYTES # 0.7 10^3/ul (0.8-2.9); MONOCYTE # 1.1 10^3/ul (0.3-0.9); NEUTROPHIL # 4.7 10^3/ul (1.6-7.5)
--- NOTE | 2016-05-13 11:15 | PN ---
Date/Time of Note Date/Time of Note DATE: 05/13/16 TIME: 11:09 Assessment/Plan VTE Prophylaxis VTE Prophylaxis Intervention: SCD's VTE Contraindication Reason: blood coagulation disorder Lines/Catheters IV [facility] Peripheral IV Urinary Cath still in place: No Assessment/Plan Assessment/Plan 1. Upper gastrointestinal bleed secondary to esophageal varices GI consult appreciated, EGD done and showed multiple esophageal varices status post ligation H an H is stable Status post octreotide and Protonix drips / Now supposedly on full liquid diet 2. Encephalopathy / Lethargy Patient started on lactulose and will also cut down Librium dose serial ammonia levels 3. Acute on chronic anemia 2/2 Blood loss - stable Workup is normal with normal iron as well as normal vitamin B12 and folate 4. Alcohol related liver disease with ascites Continue with Librium, Ativan, lactulose and banana bag Continue with Lasix and Aldactone the patient will be advised for cessation manager social media consultation 4. Homelessness contact worker consultation 5. Prophylaxis: Sequential compression devices. Dispo: PT / ST eval NPO / Deep suctioning /D/c Librium completely / Change ammonia to rectal Supportive care Subjective 24 Hr Interval Summary Free Text/Dictation Patient seen and examined. Barely responsive Exam/Review of Systems Vital Signs Vitals Vital Signs Date Time Temp Pulse Resp B/P Pulse Ox O2 Delivery O2 Flow Rate FiO2 05/13/16 09:06 98.0 104 16 125/69 97 Nasal Cannula 05/13/16 01:02 2.0 05/11/16 19:37 21 Intake and Output 05/12/16 05/12/16 05/13/16 14:59 22:59 06:59 Intake Total 1211.2 ml 1100 ml Output Total 1500 ml 100 ml Balance -288.8 ml 1000 ml Exam Constitutional: other (chronically ill looking, moans inresponse to name, huge aspiration risk), No alert, No oriented Psych: other (unable to assess) Head: normocephalic Eyes: icteric ENMT: No mucosa pink and moist (dry) Respiratory: crackles/rales (loud, gurgling sounds) Cardiovascular: regular rate and rhythm, No murmurs/extra sounds Gastrointestinal: bowel sounds, distended, soft Genitourinary - Male: other (condom cath to bedside drainage) Extremities: edema (trace) Neurological: confused, lethargic, No nl mental status, No nl speech, No nl strength Skin: other (jaundiced) Results Result Diagram: 05/13/1641905/13/16419 Results 24 hrs Laboratory Tests Test 05/13/16 04:20 Anion Gap 11 Band Neutrophils % 7.0 H Blood Morphology Comment Blood Urea Nitrogen 9 Calcium Level 8.1 L Carbon Dioxide Level 23 Chloride Level 104 Creatinine 0.55 L Eosinophils # 0.3 Eosinophils % 4.0 Glucose Level 104 Hematocrit 28.0 L Hemoglobin 9.2 L Lymphocytes # 0.7 L Lymphocytes % 10.0 L Mean Corpuscular Hemoglobin 31.7 Mean Corpuscular Hemoglobin Concent 33.0 Mean Corpuscular Volume 95.8 Mean Platelet Volume 8.6 Monocytes # 1.1 H Monocytes % 15.0 H Neutrophils # 4.7 Neutrophils % 64.0 Platelet Count 194 Potassium Level 3.7 Red Blood Count 2.92 L Red Cell Distribution Width 19.4 H Sodium Level 134 L White Blood Count 7.3 # Medications Medications Current Medications Potassium Chloride/Dextrose/ Sod Cl (D5-1/2ns + KCl 20 Meq) 1,000 ml @ 100 mls/ hr Q10H IV Last administered on 05/13/16at 04:45; Admin Dose 100 MLS/HR; Start 05/07/16 at 19:09 Ondansetron HCl (Zofran Inj) 4 mg Q6H PRN IV NAUSEA AND/OR VOMITING; Start 05/07/16 at 19:30 Morphine Sulfate (morphine) 2 mg Q4H PRN IV SEVERE PAIN LEVEL 7-10 Last administered on 05/08/16at 20:08; Admin Dose 2 MG; Start 05/07/16 at 19:30 Docusate Sodium (Colace) 100 mg Q12H PRN PO CONSTIPATION; Start 05/07/16 at 19: 30 Pantoprazole 40 mg 40 mg DAILY@06 PO Last administered on 05/13/16at 05:18; Admin Dose 40 MG; Start 05/10/16 at 06:00 Multivitamins/ Thiamine HCl/ Folic Acid/Sodium Chloride (Mvi-12 Adult/ Vitamin B1/Folic Acid/NS) 1,011.2 ml @ 125 mls/ hr DAILY@09 IVPB Last administered on 05/13/16at 08:59; Admin Dose 125 MLS/HR; Start 05/09/16 at 16:30 Lorazepam (Ativan) 1 mg Q2 PRN IV AGITATION/ANXIETY; Start 05/09/16 at 16:30 Chlordiazepoxide (Librium) 25 mg TID PO Last administered on 05/13/16at 08:59; Admin Dose 25 MG; Start 05/10/16 at 13:00 Furosemide (Lasix) 40 mg DAILY@06 IV Last administered on 05/13/16at 05:18; Admin Dose 40 MG; Start 05/10/16 at 14:30 Lactulose (Enulose) 10 gm Q8 PO Last administered on 05/13/16at 05:23; Admin Dose 10 GM; Start 05/12/16 at 14:00 KASH OLVERA May 13, 2016 11:15
--- NOTE | 2016-05-13 16:03 | CONS ---
Date/Time of Note Date/Time of Note DATE: 05/13/16 TIME: 16:00 Assessment/Plan Assessment/Plan Additional Assessment/Plan Hematemesis s/p EGD: Grade IV/IV esophageal varices with stigmata of recent bleeding "white plug."Post-endoscopic variceal ligation x4. Anemia Abdominal pain Nausea History of EtOH abuse Ascites, improving Transaminitis, acute hepatitis serology negative Plan: Continue Lasix, Aldactone, and PPI Monitor H&H every 6 hours, transfuse 2 units for Hgb <7.5 Ultrasound paracentesis when necessary Lactulose 3 times a day to produce 2-3 bowel movements per day Advance diet as tolerated Patient should be followed up with an EGD and possible further banding in 8 to 12 weeks. Further recommendations depend on clinical course Patient seen in collaboration with Dr. Ochoa Consultation Date/Type/Reason Admit Date/Time May 07, 2016 at 14:39 24 HR Interval Summary Free Text/Dictation New report of patient having low oxygen saturation and problems swallowing Ordered stat paracentesis ST evaluation in process No reports of nausea and vomiting May consider KUB if patient not tolerating p.o. after cleared by ST NG tube placement on hold till KUB ordered and resulted Exam/Review of Systems Vital Signs Vitals Vital Signs Date Time Temp Pulse Resp B/P Pulse Ox O2 Delivery O2 Flow Rate FiO2 05/13/16 09:06 98.0 104 16 125/69 97 Nasal Cannula 05/13/16 01:02 2.0 05/11/16 19:37 21 Intake and Output 05/12/16 05/12/16 05/13/16 15:00 23:00 07:00 Intake Total 1211.2 ml 1100 ml Output Total 1500 ml 100 ml Balance -288.8 ml 1000 ml Exam Constitutional: Asleep, NAD Psych: confusion Respiratory: normal air movement, 2L NC Cardiovascular: regular rate and rhythm Gastrointestinal: distended, firm Results Result Diagram: 05/13/16 04205/13/16 0420 Results 24 hrs Laboratory Tests Test 05/13/16 04:20 Anion Gap 11 Band Neutrophils % 7.0 H Blood Morphology Comment Blood Urea Nitrogen 9 Calcium Level 8.1 L Carbon Dioxide Level 23 Chloride Level 104 Creatinine 0.55 L Eosinophils # 0.3 Eosinophils % 4.0 Glucose Level 104 Hematocrit 28.0 L Hemoglobin 9.2 L Lymphocytes # 0.7 L Lymphocytes % 10.0 L Mean Corpuscular Hemoglobin 31.7 Mean Corpuscular Hemoglobin Concent 33.0 Mean Corpuscular Volume 95.8 Mean Platelet Volume 8.6 Monocytes # 1.1 H Monocytes % 15.0 H Neutrophils # 4.7 Neutrophils % 64.0 Platelet Count 194 Potassium Level 3.7 Red Blood Count 2.92 L Red Cell Distribution Width 19.4 H Sodium Level 134 L White Blood Count 7.3 # Medications Medications Current Medications Potassium Chloride/Dextrose/ Sod Cl (D5-1/2ns + KCl 20 Meq) 1,000 ml @ 100 mls/ hr Q10H IV Last administered on 05/13/16at 04:45; Admin Dose 100 MLS/HR; Start 05/07/16 at 19:09 Ondansetron HCl (Zofran Inj) 4 mg Q6H PRN IV NAUSEA AND/OR VOMITING; Start 05/07/16 at 19:30 Morphine Sulfate (morphine) 2 mg Q4H PRN IV SEVERE PAIN LEVEL 7-10 Last administered on 05/08/16at 20:08; Admin Dose 2 MG; Start 05/07/16 at 19:30 Docusate Sodium (Colace) 100 mg Q12H PRN PO CONSTIPATION; Start 05/07/16 at 19: 30 Pantoprazole 40 mg 40 mg DAILY@06 PO Last administered on 05/13/16at 05:18; Admin Dose 40 MG; Start 05/10/16 at 06:00 Multivitamins/ Thiamine HCl/ Folic Acid/Sodium Chloride (Mvi-12 Adult/ Vitamin B1/Folic Acid/NS) 1,011.2 ml @ 125 mls/ hr DAILY@09 IVPB Last administered on 05/13/16at 08:59; Admin Dose 125 MLS/HR; Start 05/09/16 at 16:30 Lorazepam (Ativan) 1 mg Q2 PRN IV AGITATION/ANXIETY; Start 05/09/16 at 16:30 Furosemide (Lasix) 40 mg DAILY@06 IV Last administered on 05/13/16at 05:18; Admin Dose 40 MG; Start 05/10/16 at 14:30 Lactulose (Enulose) 10 gm Q8 PO Last administered on 05/13/16at 05:23; Admin Dose 10 GM; Start 05/12/16 at 14:00 Chlordiazepoxide (Librium) 25 mg DAILY PO ; Start 05/14/16 at 09:00 GEOVANNI ALMODOVAR May 13, 2016 16:03
[2016-05-13] MEDS: LACTULOSE ENEMA 1,000 ML BTL PR SCH (18:16)
[2016-05-13 20:00] VITALS: BP 150/80; PULSE 106; RESP 18
--- NOTE | 2016-05-13 22:28 | RADRPT ---
PROCEDURE: XR Abdomen. CLINICAL INDICATION: Abdominal distension. TECHNIQUE: Supine AP views of the abdomen. COMPARISON: None. FINDINGS: Gas is seen within nondilated loops of small and large bowel. There are no dilated loops of small b owel to suggest a bowel obstruction. No abnormal calcifications are identified. IMPRESSION: 1. Nonobstructive bowel gas pattern. RPTAT: HTAR .Clark Sotelo MD, MD Date Time Electronically viewed and signed by .Clark Sotelo MD, on 05/13/2016 22:28 .R/
[2016-05-14] MEDS: LACTULOSE ENEMA 1,000 ML BTL PR SCH ×4 (00:56→17:19)
[2016-05-14] MEDS: LEVALBUTEROL (NEB) 1.25 MG/0.5 ML AMP HHN PRN (01:20)
[2016-05-14] MEDS: D5W-0.45 NACL + KCL 20 MEQ 1,000 ML IV SCH (04:39)
[2016-05-14] MEDS: PANTOPRAZOLE 40 MG INJ IV SCH (05:56)
[2016-05-14] MEDS: SPIRONOLACTONE 25 MG TAB PO SCH ×2 (05:57→17:18)
[2016-05-14] MEDS: FUROSEMIDE 40 MG INJ IV SCH (06:08)
[2016-05-14 06:17] LABS: HEMATOCRIT 28.6 % (42.0-52.0); HEMOGLOBIN 9.5 g/dl (14.0-18.0); MEAN CORPUSCULAR HEMOGLOBIN 31.9 pg (29.0-33.0); MEAN CORPUSCULAR HGB CONC 33.2 g/dl (32.0-37.0); MEAN PLATELET VOLUME 9.1 fl (7.4-10.4); PLATELET COUNT 209 10^3/UL (140-440); RED BLOOD COUNT 2.97 10^6/ul (4.70-6.10); RED CELL DISTRIBUTION WIDTH 19.2 % (11.5-14.5); UNCORRECTED WBC 7.5 10^3/ul (4.8-10.8); WHITE BLOOD COUNT 7.5 10^3/ul (4.8-10.8)
[2016-05-14 06:27] LABS: ALBUMIN 2.3 g/dl (3.3-4.9); CONDITION 1; LH ANALYZER COMMENTS 1
[2016-05-14 06:28] LABS: POTASSIUM 4.1 mmol/L (3.5-5.1)
[2016-05-14 06:30] LABS: ALBUMIN/GLOBULIN RATIO 0.52; BILIRUBIN,INDIRECT 1.1 mg/dl (0-1.1); BILIRUBIN,TOTAL 1.1 mg/dl (0.2-1.3); CREATININE 0.54 mg/dl (0.61-1.24); TOTAL PROTEIN 6.7 g/dl (6.1-8.1)
[2016-05-14 06:31] LABS: CALCIUM 7.7 mg/dl (8.4-10.2); MAGNESIUM 1.5 mg/dl (1.7-2.5)
--- NOTE | 2016-05-14 06:45 | RADRPT ---
PROCEDURE: XR Chest. CLINICAL INDICATION: Pulmonary congestion TECHNIQUE: A single AP view of the chest was obtained. COMPARISON: Chest x-ray dated 05/10/2016. FINDINGS: Lung volumes are low with compressive changes, vascular crowding and basilar atelectasis. There is p rominence of the interstitial markings. No focal airspace opacity, pleural effusion or pneumothorax is seen. The cardiomediastinal silhouette is within normal limits for size. The osseous structures are unremarkable. IMPRESSION: 1. Prominence of the pulmonary vascular and interstitial markings, at least partially related to lo w lung volumes. Mild pulmonary vascular congestion is not excluded. Findings are mildly increased when compared to the prior examination dated 05/10/2016. 2. Otherwise, unremarkable chest x-ray. RPTAT: HH .Margret Barr MD, MD Date Time Electronically viewed and signed by .Margret Barr MD, on 05/14/2016 06:45 .G/
[2016-05-14 08:13] LABS: ANISOCYTOSIS 2+; EOSINOPHILS # 0.1 10^3/ul (0.0-0.5); LYMPHOCYTES # 1.1 10^3/ul (0.8-2.9); MONOCYTE # 0.4 10^3/ul (0.3-0.9); NEUTROPHIL # 5.5 10^3/ul (1.6-7.5)
[2016-05-14 08:14] LABS: PLATELET ESTIMATE PLT APPEAR ADEQUATE
[2016-05-14] MEDS: MULTIVITAMINS 10 ML, THIAMINE 100 MG, FOLIC ACID 1 MG in SOD CHLORIDE 0.9% 1,000 ML IVPB SCH ×2 (08:22→13:54)
[2016-05-14 08:33] VITALS: BP 134/76; PULSE 109; RESP 18
[2016-05-14] MEDS ORDERED: CHLORDIAZEPOXIDE 25 MG CAP PO SCH (09:00)
--- NOTE | 2016-05-14 12:22 | PN ---
Date/Time of Note Date/Time of Note DATE: 05/14/16 TIME: 12:18 Assessment/Plan VTE Prophylaxis VTE Prophylaxis Intervention: SCD's VTE Contraindication Reason: blood coagulation disorder Lines/Catheters IV C[facility]ter Type (from [facility] Saline Lock Urinary Cath still in place: No Assessment/Plan Assessment/Plan 1. Upper gastrointestinal bleed secondary to esophageal varices GI consult appreciated, EGD done and showed multiple esophageal varices status post ligation H an H is stable Status post octreotide and Protonix drips / Now NPO for altered mental status 2. Encephalopathy / Lethargy Patient started on rectal lactulose / librium D/c / ammonia levels normal today 3. Acute on chronic anemia 2/2 Blood loss - stable Workup is normal with normal iron as well as normal vitamin B12 and folate 4. 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 Prophylaxis: Sequential compression devices. Dispo: PT / ST eval Continue NPO till more alert or cleared by ST / Deep suctioning / Supportive care Subjective 24 Hr Interval Summary Free Text/Dictation Patient seen and examined. Very lethargic, Nursing reports episodes of agitation and refusal of interventions. remains NPO and unable to be cleared for a diet. Constitutional: disoriented Exam/Review of Systems Vital Signs Vitals Vital Signs Date Time Temp Pulse Resp B/P Pulse Ox O2 Delivery O2 Flow Rate FiO2 05/14/16 08:33 99.1 109 18 134/76 98 Nasal Cannula 2.0 05/11/16 19:37 21 Intake and Output 05/13/16 05/13/16 05/14/16 15:00 23:00 07:00 Intake Total 200 ml 1450 ml 1250 ml Output Total 800 ml 500 ml Balance 200 ml 650 ml 750 ml Exam Constitutional: other (chronically ill looking, moans inresponse to name, huge aspiration risk), No alert, No oriented Psych: other Intermittent agitation and confusion Head: normocephalic Eyes: icteric ENMT: No mucosa pink and moist (dry) Respiratory: crackles/rales (loud, gurgling sounds) Cardiovascular: regular rate and rhythm, No murmurs/extra sounds Gastrointestinal: bowel sounds, distended, soft Genitourinary - Male: other (condom cath to bedside drainage) Extremities: edema (trace) Neurological: confused, lethargic, No nl mental status, No nl speech, No nl strength Skin: other (jaundiced) Results Result Diagram: 05/14/1642205/14/16422 Results 24 hrs Laboratory Tests Test 05/14/16 04:23 Alanine Aminotransferase (ALT/SGPT) 36 Albumin 2.3 L Albumin/Globulin Ratio 0.52 Alkaline Phosphatase 152 H Ammonia 18 # Anion Gap 11 Anisocytosis 2+ Aspartate Amino Transf (AST/SGOT) 75 H Band Neutrophils % 6.0 H Blood Morphology Comment Blood Urea Nitrogen 8 Calcium Level 7.7 L Carbon Dioxide Level 24 Chloride Level 102 Creatinine 0.54 L Direct Bilirubin 0.00 Eosinophils # 0.1 Eosinophils % 1.0 Globulin 4.40 H Glucose Level 99 Hematocrit 28.6 L Hemoglobin 9.5 L Indirect Bilirubin 1.1 Lymphocytes # 1.1 Lymphocytes % 15.0 Magnesium Level 1.5 L Mean Corpuscular Hemoglobin 31.9 Mean Corpuscular Hemoglobin Concent 33.2 Mean Corpuscular Volume 96.0 Mean Platelet Volume 9.1 Monocytes # 0.4 Monocytes % 5.0 Neutrophils # 5.5 Neutrophils % 73.0 Platelet Count 209 Platelet Estimate PLT APPEAR ADEQUATE Potassium Level 4.1 Red Blood Count 2.97 L Red Cell Distribution Width 19.2 H Sodium Level 133 L Total Bilirubin 1.1 Total Protein 6.7 White Blood Count 7.5 Medications Medications Current Medications Ondansetron HCl (Zofran Inj) 4 mg Q6H PRN IV NAUSEA AND/OR VOMITING; Start 05/07/16 at 19:30 Morphine Sulfate (morphine) 2 mg Q4H PRN IV SEVERE PAIN LEVEL 7-10 Last administered on 05/08/16at 20:08; Admin Dose 2 MG; Start 05/07/16 at 19:30 Docusate Sodium 100 mg 100 mg Q12H PRN PO CONSTIPATION; Start 05/07/16 at 19:30 Multivitamins/ Thiamine HCl/ Folic Acid/Sodium Chloride (Mvi-12 Adult/ Vitamin B1/Folic Acid/NS) 1,011.2 ml @ 125 mls/ hr DAILY@09 IVPB Last administered on 05/13/16at 08:59; Admin Dose 125 MLS/HR; Start 05/09/16 at 16:30 Lorazepam (Ativan) 1 mg Q2 PRN IV AGITATION/ANXIETY; Start 05/09/16 at 16:30 Furosemide (Lasix) 40 mg DAILY@06 IV Last administered on 05/14/16at 06:08; Admin Dose 40 MG; Start 05/10/16 at 14:30 Pantoprazole (Protonix Iv) 40 mg DAILY@06 IV Last administered on 05/14/16at 05 :56; Admin Dose 40 MG; Start 05/14/16 at 06:00 Lactulose (Lactulose Enema) 100 ml Q6 [place] Last administered on 05/14/16at 12:07 ; Admin Dose 100 ML; Start 05/13/16 at 18:00 Procedures Procedures PROCEDURE: XR Chest. CLINICAL INDICATION: Pulmonary congestion TECHNIQUE: A single AP view of the chest was obtained. COMPARISON: Chest x-ray dated 05/10/2016. FINDINGS: Lung volumes are low with compressive changes, vascular crowding and basilar atelectasis. There is prominence of the interstitial markings. No focal airspace opacity, pleural effusion or pneumothorax is seen. The cardiomediastinal silhouette is within normal limits for size. The osseous structures are unremarkable. IMPRESSION: 1. Prominence of the pulmonary vascular and interstitial markings, at least partially related to low lung volumes. Mild pulmonary vascular congestion is not excluded. Findings are mildly increased when compared to the prior examination dated 05/10/2016. 2. Otherwise, unremarkable chest x-ray. RPTAT: HH .Margret Barr MD, Date Time Electronically viewed and signed by .Margret Barr MD, MD on 05/14/2016 06 :45 PROCEDURE: XR Abdomen. CLINICAL INDICATION: Abdominal distension. TECHNIQUE: Supine AP views of the abdomen. COMPARISON: None. FINDINGS: Gas is seen within nondilated loops of small and large bowel. There are no dilated loops of small bowel to suggest a bowel obstruction. No abnormal calcifications are identified. IMPRESSION: 1. Nonobstructive bowel gas pattern. RPTAT: HTAR .Clark Sotelo MD, MD Date Time Electronically viewed and signed by .Clark Sotelo MD, MD on 05/13/2016 22:28 .R/ CC: GEOVANNI ALMODOVAR BOLATITO M. May 14, 2016 12:22
[2016-05-14] MEDS ORDERED: MAGNESIUM SULFATE 2 GM/50 ML 50 ML IVPB ONE (13:30)
[2016-05-14] MEDS: ALBUTEROL/IPRATROPIUM (NEB) 3 ML AMP HHN PRN ×2 (14:26→18:38)
--- NOTE | 2016-05-14 18:08 | CONS ---
Date/Time of Note Date/Time of Note DATE: 05/14/16 TIME: 18:04 Assessment/Plan Assessment/Plan Additional Assessment/Plan Hematemesis s/p EGD: Grade IV/IV esophageal varices with stigmata of recent bleeding "white plug."Post-endoscopic variceal ligation x4. Anemia Abdominal pain Nausea History of EtOH abuse Ascites, improving Transaminitis, acute hepatitis serology negative Plan: Continue Lasix, Aldactone, and PPI Monitor H&H every 6 hours, transfuse 2 units for Hgb <7.5 Ultrasound paracentesis when necessary Lactulose 3 times a day to produce 2-3 bowel movements per day Advance diet as tolerated Patient should be followed up with an EGD and possible further banding in 8 to 12 weeks. Further recommendations depend on clinical course Patient seen in collaboration with Dr. Ochoa Consultation Date/Type/Reason Admit Date/Time May 07, 2016 at 14:39 24 HR Interval Summary Free Text/Dictation Patient refusing paracentesis Per bedside nurse patient would benefit from manual disimpaction of stool and RT recommended treatments every 6 ST swallow evaluation not complete due to increased secretions Will continue p.o. diuretics Exam/Review of Systems Vital Signs Vitals Vital Signs Date Time Temp Pulse Resp B/P Pulse Ox O2 Delivery O2 Flow Rate FiO2 05/14/16 14:27 2.0 05/14/16 14:27 105 24 94 Nasal Cannula 05/14/16 08:33 99.1 134/76 05/11/16 19:37 21 Intake and Output 05/13/16 05/13/16 05/14/16 15:00 23:00 07:00 Intake Total 200 ml 1450 ml 1250 ml Output Total 800 ml 500 ml Balance 200 ml 650 ml 750 ml Exam Constitutional: Asleep, NAD Psych: confusion Respiratory: normal air movement, 2L NC Cardiovascular: regular rate and rhythm Gastrointestinal: distended, firm Results Result Diagram: 05/14/1642205/14/163 Results 24 hrs Laboratory Tests Test 05/14/16 04:23 Alanine Aminotransferase (ALT/SGPT) 36 Albumin 2.3 L Albumin/Globulin Ratio 0.52 Alkaline Phosphatase 152 H Ammonia 18 # Anion Gap 11 Anisocytosis 2+ Aspartate Amino Transf (AST/SGOT) 75 H Band Neutrophils % 6.0 H Blood Morphology Comment Blood Urea Nitrogen 8 Calcium Level 7.7 L Carbon Dioxide Level 24 Chloride Level 102 Creatinine 0.54 L Direct Bilirubin 0.00 Eosinophils # 0.1 Eosinophils % 1.0 Globulin 4.40 H Glucose Level 99 Hematocrit 28.6 L Hemoglobin 9.5 L Indirect Bilirubin 1.1 Lymphocytes # 1.1 Lymphocytes % 15.0 Magnesium Level 1.5 L Mean Corpuscular Hemoglobin 31.9 Mean Corpuscular Hemoglobin Concent 33.2 Mean Corpuscular Volume 96.0 Mean Platelet Volume 9.1 Monocytes # 0.4 Monocytes % 5.0 Neutrophils # 5.5 Neutrophils % 73.0 Platelet Count 209 Platelet Estimate PLT APPEAR ADEQUATE Potassium Level 4.1 Red Blood Count 2.97 L Red Cell Distribution Width 19.2 H Sodium Level 133 L Total Bilirubin 1.1 Total Protein 6.7 White Blood Count 7.5 Medications Medications Current Medications Ondansetron HCl (Zofran Inj) 4 mg Q6H PRN IV NAUSEA AND/OR VOMITING; Start 05/07/16 at 19:30 Morphine Sulfate (morphine) 2 mg Q4H PRN IV SEVERE PAIN LEVEL 7-10 Last administered on 05/08/16at 20:08; Admin Dose 2 MG; Start 05/07/16 at 19:30 Docusate Sodium 100 mg 100 mg Q12H PRN PO CONSTIPATION; Start 05/07/16 at 19:30 Multivitamins/ Thiamine HCl/ Folic Acid/Sodium Chloride (Mvi-12 Adult/ Vitamin B1/Folic Acid/NS) 1,011.2 ml @ 75 mls/hr DAILY@09 IVPB Last administered on at 13:54; Admin Dose 75 MLS/HR; Start 05/09/16 at 16:30 Lorazepam (Ativan) 1 mg Q2 PRN IV AGITATION/ANXIETY; Start 05/09/16 at 16:30 Furosemide (Lasix) 40 mg DAILY@06 IV Last administered on 05/14/16at 06:08; Admin Dose 40 MG; Start 05/10/16 at 14:30 Pantoprazole (Protonix Iv) 40 mg DAILY@06 IV Last administered on 05/14/16at 05 :56; Admin Dose 40 MG; Start 05/14/16 at 06:00 Lactulose (Lactulose Enema) 100 ml Q6 [place] Last administered on 05/14/16at 17:19 ; Admin Dose 100 ML; Start 05/13/16 at 18:00 GEOVANNI ALMODOVAR May 14, 2016 18:08
[2016-05-14 21:01] VITALS: BP 150/80; PULSE 107; RESP 18
[2016-05-15] VITALS: BP 128/78; PULSE 96
[2016-05-15] MEDS: LACTULOSE ENEMA 1,000 ML BTL PR SCH ×4 (01:02→18:20)
[2016-05-15 05:36] LABS: HEMATOCRIT 26.4 % (42.0-52.0); HEMOGLOBIN 8.8 g/dl (14.0-18.0); MEAN CORPUSCULAR HEMOGLOBIN 31.7 pg (29.0-33.0); MEAN CORPUSCULAR HGB CONC 33.5 g/dl (32.0-37.0); MEAN CORPUSCULAR VOLUME 94.9 fl (82.0-101.0); MEAN PLATELET VOLUME 8.1 fl (7.4-10.4); PLATELET COUNT 235 10^3/UL (140-440); RED BLOOD COUNT 2.78 10^6/ul (4.70-6.10); RED CELL DISTRIBUTION WIDTH 18.7 % (11.5-14.5); UNCORRECTED WBC 6.9 10^3/ul (4.8-10.8); WHITE BLOOD COUNT 6.9 10^3/ul (4.8-10.8)
[2016-05-15] MEDS: LEVALBUTEROL (NEB) 1.25 MG/0.5 ML AMP HHN PRN (05:36)
[2016-05-15 05:41] LABS: CONDITION 1; LH ANALYZER COMMENTS 1
[2016-05-15] MEDS: SPIRONOLACTONE 25 MG TAB PO SCH ×2 (06:00→18:00)
[2016-05-15 06:06] LABS: ALBUMIN 2.3 g/dl (3.3-4.9); POTASSIUM 3.7 mmol/L (3.5-5.1)
[2016-05-15 06:08] LABS: CREATININE 0.58 mg/dl (0.61-1.24)
[2016-05-15 06:09] LABS: ALBUMIN/GLOBULIN RATIO 0.51; TOTAL PROTEIN 6.8 g/dl (6.1-8.1)
[2016-05-15 06:10] LABS: CALCIUM 7.6 mg/dl (8.4-10.2)
[2016-05-15] MEDS: PANTOPRAZOLE 40 MG INJ IV SCH (06:15)
[2016-05-15] MEDS: FUROSEMIDE 40 MG INJ IV SCH (06:21)
[2016-05-15 08:35] LABS: BASOPHIL # 0.2 10^3/ul (0.0-0.1); EOSINOPHILS # 0.1 10^3/ul (0.0-0.5); LYMPHOCYTES # 0.3 10^3/ul (0.8-2.9)
[2016-05-15 08:54] VITALS: BP 115/63; PULSE 104; RESP 18
[2016-05-15] MEDS: MULTIVITAMINS 10 ML, THIAMINE 100 MG, FOLIC ACID 1 MG in SOD CHLORIDE 0.9% 1,000 ML IVPB SCH (09:02)
[2016-05-15] MEDS: ALBUTEROL/IPRATROPIUM (NEB) 3 ML AMP HHN PRN ×2 (10:10→20:49)
--- NOTE | 2016-05-15 14:00 | PN ---
Date/Time of Note Date/Time of Note DATE: 05/15/16 TIME: 13:52 Assessment/Plan VTE Prophylaxis VTE Prophylaxis Intervention: SCD's Lines/Catheters IV Catheter Type (from Nrs): Peripheral IV Urinary Cath still in place: No Assessment/Plan Assessment/Plan 1. Upper gastrointestinal bleed secondary to esophageal varices GI consult appreciated, EGD done and showed multiple esophageal varices status post ligation H an H is stable Status post octreotide and Protonix drips / Now NPO for altered mental status 2. Encephalopathy / Lethargy: no significant improvement Patient started on rectal lactulose / librium D/c / ammonia levels normal x 2 days / will get neurology consult 3. Acute on chronic anemia 2/2 Blood loss - stable Workup is normal with normal iron as well as normal vitamin B12 and folate 4. 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 Prophylaxis: Sequential compression devices. Dispo: PT Eval still pending ST eval noted, recommends Strict NPO Continue NPO till more alert or cleared by ST / Deep suctioning / Supportive care Exam/Review of Systems Vital Signs Vitals Vital Signs Date Time Temp Pulse Resp B/P Pulse Ox O2 Delivery O2 Flow Rate FiO2 05/15/16 12:02 Nasal Cannula 2.0 05/15/16 08:54 98.4 104 18 115/63 95 05/11/16 19:37 21 Intake and Output 05/14/16 05/14/16 05/15/16 15:00 23:00 07:00 Intake Total 275 ml 900 ml Output Total 1200 ml 400 ml Balance -925 ml 500 ml Exam Constitutional: other (chronically ill looking, moans inresponse to name, huge aspiration risk), No alert, No oriented Psych: other Intermittent agitation and confusion Head: normocephalic Eyes: icteric ENMT: No mucosa pink and moist (dry) Respiratory: crackles/rales (loud, gurgling sounds) Cardiovascular: regular rate and rhythm, No murmurs/extra sounds Gastrointestinal: bowel sounds, distended, soft Genitourinary - Male: other (condom cath to bedside drainage) Extremities: edema (trace) Neurological: confused, lethargic, No nl mental status, No nl speech, No nl strength Skin: other (jaundiced) Results Result Diagram: 12/14/16 0410 05/15/16 0410 Results 24 hrs Laboratory Tests Test 05/15/16 04:10 Alanine Aminotransferase (ALT/SGPT) 35 Albumin 2.3 L Albumin/Globulin Ratio 0.51 Alkaline Phosphatase 164 H Ammonia < 9 L Anion Gap 12 Aspartate Amino Transf (AST/SGOT) 67 H Band Neutrophils % 5.0 Basophils # 0.2 H Basophils % 3.0 H Blood Morphology Comment Blood Urea Nitrogen 10 Calcium Level 7.6 L Carbon Dioxide Level 26 Chloride Level 103 Creatinine 0.58 L Direct Bilirubin 0.00 Eosinophils # 0.1 Eosinophils % 1.0 Globulin 4.50 H Glucose Level 84 Hematocrit 26.4 L Hemoglobin 8.8 L Indirect Bilirubin 1.0 Lymphocytes # 0.3 L Lymphocytes % 5.0 L Magnesium Level 2.0 Mean Corpuscular Hemoglobin 31.7 Mean Corpuscular Hemoglobin Concent 33.5 Mean Corpuscular Volume 94.9 Mean Platelet Volume 8.1 Monocytes # 1.0 H Monocytes % 14.0 H Neutrophils # 5.0 Neutrophils % 72.0 Platelet Count 235 Potassium Level 3.7 Red Blood Count 2.78 L Red Cell Distribution Width 18.7 H Sodium Level 137 Total Bilirubin 1.0 Total Protein 6.8 White Blood Count 6.9 Medications Medications Current Medications Ondansetron HCl (Zofran Inj) 4 mg Q6H PRN IV NAUSEA AND/OR VOMITING; Start 05/07/16 at 19:30 Morphine Sulfate (morphine) 2 mg Q4H PRN IV SEVERE PAIN LEVEL 7-10 Last administered on 05/08/16at 20:08; Admin Dose 2 MG; Start 05/07/16 at 19:30 Docusate Sodium 100 mg 100 mg Q12H PRN PO CONSTIPATION; Start 05/07/16 at 19:30 Multivitamins/ Thiamine HCl/ Folic Acid/Sodium Chloride (Mvi-12 Adult/ Vitamin B1/Folic Acid/NS) 1,011.2 ml @ 75 mls/hr DAILY@09 IVPB Last administered on at 09:02; Admin Dose 75 MLS/HR; Start 05/09/16 at 16:30 Lorazepam (Ativan) 1 mg Q2 PRN IV AGITATION/ANXIETY; Start 05/09/16 at 16:30 Furosemide (Lasix) 40 mg DAILY@06 IV Last administered on 05/15/16at 06:21; Admin Dose 40 MG; Start 05/10/16 at 14:30 Pantoprazole (Protonix Iv) 40 mg DAILY@06 IV Last administered on 05/15/16at 06 :15; Admin Dose 40 MG; Start 05/14/16 at 06:00 Lactulose (Lactulose Enema) 100 ml Q6 [place] Last administered on 05/15/16at 11:38 ; Admin Dose 100 ML; Start 05/13/16 at 18:00 KASH OLVERA May 15, 2016 14:00
--- NOTE | 2016-05-15 18:06 | CONS ---
Date/Time of Note Date/Time of Note DATE: 05/15/16 TIME: 18:03 Assessment/Plan Assessment/Plan Additional Assessment/Plan Hematemesis s/p EGD: Grade IV/IV esophageal varices with stigmata of recent bleeding "white plug."Post-endoscopic variceal ligation x4. Anemia Abdominal pain Nausea History of EtOH abuse Ascites, improving Transaminitis, acute hepatitis serology negative Plan: Continue Lasix, Aldactone, and PPI Monitor H&H every 6 hours, transfuse 2 units for Hgb <7.5 Ultrasound paracentesis when necessary Lactulose 3 times a day to produce 2-3 bowel movements per day Advance diet as tolerated Patient should be followed up with an EGD and possible further banding in 8 to 12 weeks. Further recommendations depend on clinical course Patient seen in collaboration with Dr. Ochoa Consultation Date/Type/Reason Admit Date/Time May 07, 2016 at 14:39 24 HR Interval Summary Free Text/Dictation Patient agitated at bedside Review of systems answer questions Abdomen distended Continues to refuse NG tube insertion and paracentesis Exam/Review of Systems Vital Signs Vitals Vital Signs Date Time Temp Pulse Resp B/P Pulse Ox O2 Delivery O2 Flow Rate FiO2 05/15/16 12:02 Nasal Cannula 2.0 05/15/16 10:10 89 16 96 05/15/16 08:54 98.4 115/63 05/11/16 19:37 21 Intake and Output 05/14/16 05/14/16 05/15/16 15:00 23:00 07:00 Intake Total 275 ml 900 ml Output Total 1200 ml 400 ml Balance -925 ml 500 ml Exam Constitutional: Alert and awake Psych: confusion Respiratory: normal air movement, 2L NC Cardiovascular: regular rate and rhythm Gastrointestinal: distended, firm Results Result Diagram: 05/15/16 0410 05/15/16 0410 Results 24 hrs Laboratory Tests Test 05/15/16 04:10 Alanine Aminotransferase (ALT/SGPT) 35 Albumin 2.3 L Albumin/Globulin Ratio 0.51 Alkaline Phosphatase 164 H Ammonia < 9 L Anion Gap 12 Aspartate Amino Transf (AST/SGOT) 67 H Band Neutrophils % 5.0 Basophils # 0.2 H Basophils % 3.0 H Blood Morphology Comment Blood Urea Nitrogen 10 Calcium Level 7.6 L Carbon Dioxide Level 26 Chloride Level 103 Creatinine 0.58 L Direct Bilirubin 0.00 Eosinophils # 0.1 Eosinophils % 1.0 Globulin 4.50 H Glucose Level 84 Hematocrit 26.4 L Hemoglobin 8.8 L Indirect Bilirubin 1.0 Lymphocytes # 0.3 L Lymphocytes % 5.0 L Magnesium Level 2.0 Mean Corpuscular Hemoglobin 31.7 Mean Corpuscular Hemoglobin Concent 33.5 Mean Corpuscular Volume 94.9 Mean Platelet Volume 8.1 Monocytes # 1.0 H Monocytes % 14.0 H Neutrophils # 5.0 Neutrophils % 72.0 Platelet Count 235 Potassium Level 3.7 Red Blood Count 2.78 L Red Cell Distribution Width 18.7 H Sodium Level 137 Total Bilirubin 1.0 Total Protein 6.8 White Blood Count 6.9 Medications Medications Current Medications Ondansetron HCl (Zofran Inj) 4 mg Q6H PRN IV NAUSEA AND/OR VOMITING; Start 05/07/16 at 19:30 Morphine Sulfate (morphine) 2 mg Q4H PRN IV SEVERE PAIN LEVEL 7-10 Last administered on 05/08/16at 20:08; Admin Dose 2 MG; Start 05/07/16 at 19:30 Docusate Sodium 100 mg 100 mg Q12H PRN PO CONSTIPATION; Start 05/07/16 at 19:30 Multivitamins/ Thiamine HCl/ Folic Acid/Sodium Chloride (Mvi-12 Adult/ Vitamin B1/Folic Acid/NS) 1,011.2 ml @ 75 mls/hr DAILY@09 IVPB Last administered on at 09:02; Admin Dose 75 MLS/HR; Start 05/09/16 at 16:30 Lorazepam (Ativan) 1 mg Q2 PRN IV AGITATION/ANXIETY; Start 05/09/16 at 16:30 Furosemide (Lasix) 40 mg DAILY@06 IV Last administered on 05/15/16at 06:21; Admin Dose 40 MG; Start 05/10/16 at 14:30 Pantoprazole (Protonix Iv) 40 mg DAILY@06 IV Last administered on 05/15/16at 06 :15; Admin Dose 40 MG; Start 05/14/16 at 06:00 Lactulose (Lactulose Enema) 100 ml Q6 [place] Last administered on 05/15/16at 11:38 ; Admin Dose 100 ML; Start 05/13/16 at 18:00 GEOVANNI ALMODOVAR May 15, 2016 18:06
--- NOTE | 2016-05-15 19:33 | NEURPT ---
DATE: 05/15/2016 ELECTROENCEPHALOGRAM INDICATION: A 70-year-old gentleman with history of alcohol abuse and encephalopathy. DESCRIPTION OF PROCEDURE: Routine EEG recorded digitally. [id number] and [id number] montages were recorded and reviewed. All impedances were measured and recorded. Cap electrodes were placed in accordance to International 10-20 system of electrode placement. FINDINGS: Symmetrically distributed background activity of low amplitude ranging in frequency betwe en 4 to 8 cycles per second was seen most of the recording, at times slightly faster. Photic stimul ation produces no definite driving. No epileptiform transients were seen. No signs of ongoing elec trographic seizures or lateralized slowing. IMPRESSION: Abnormal study secondary to background slowing which could reflect presence of encephal opathy, possibly toxic metabolic type. Please correlate clinically. Dictated By: APURVA BURGESS/STEVE Conf#: [id number] DID#: [id number]
[2016-05-15 20:00] VITALS: BP 152/78; PULSE 96; RESP 20
--- NOTE | 2016-05-15 20:45 | CONS ---
DATE OF ADMISSION: 05/07/2016 DATE OF CONSULTATION: 05/15/2016 TYPE OF CONSULTATION: Neurology. Thank you, Dr. Tee, for your kind referral for evaluation of encephalopathy. HISTORY OF PRESENT ILLNESS: The patient is a 70-year-old alcoholic who presented with following episodes of vomiting blood. It was about a week ago he had EGD, which showed multiple esophageal varices. He was treated with octreotide and Protonix. He has chronic anemia and alcohol related liver disease with ascites. According to the chart, the patient has been encephalopathic and at times lethargic with intermittent agitation and even worsening of confusion. His chest x-ray shows possible mild pulmonary vascular congestion. His labs show anemia, 8.8 hemoglobin, 26.4 hematocrit. Normal WBCs and platelets. Comprehensive metabolic panel shows AST 67, alkaline phosphatase 164. Normal ammonia, albumin 2.3. Normal B12, but he is getting multivitamins in banana bag. He did not have CAT scan of the head. CURRENT MEDICATIONS: 1. Protonix. 2. Lactulose. 3. Aldactone. 4. Lasix. 5. Banana bag. ALLERGIES: NONE. SOCIAL HISTORY: Alcohol use according to the chart. No drug use. FAMILY HISTORY: Unknown. REVIEW OF SYSTEMS: Unable to obtain. PHYSICAL EXAMINATION: VITAL SIGNS: Temperature 98.4, 89 pulse, 16 respirations, 115/63 blood pressure. GENERAL: Not in acute distress, lying in bed. HEENT: Normocephalic, atraumatic head. NECK: No carotid bruits. No thyromegaly. LUNGS: Clear to auscultation bilaterally. CARDIAC: Normal cardiac rhythm and sounds. ABDOMEN: Soft, nontender. EXTREMITIES: No cyanosis, clubbing or edema. NEUROLOGIC: He is awake and oriented x1, but able to tell me his name clearly, fluent speech. Cranial nerve examination shows intact visual jaquez to visual threat bilaterally. Pupils sluggishly reactive from 3 to 2 mm. Corneal reflexes present bilaterally. Symmetrical face. Preserved facial strength and sensation. Tongue is in midline. Motor strength examination somewhat limited but the patient is able to move his extremities at least 3/5. Deep tendon reflexes 2+ upper extremities, absent in lower extremities. Downgoing toes bilaterally. Coordination examination shows mild postural tremor. IMPRESSION: Encephalopathy and reported history of alcohol abuse. Possible alcohol withdrawal related to encephalopathy. He is anemic. EEG was done and I will review. I will obtain CAT scan of the head given no recent CAT scans were done. Continue current treatment, physical therapy. Thank you very much for this interesting consultation. Dictated By: APURVA BURGESS/STEVE Conf#: [id number] DID#: [id number] MTDD
[2016-05-16] MEDS: LACTULOSE ENEMA 1,000 ML BTL PR SCH ×4 (00:06→17:39)
[2016-05-16] MEDS: SPIRONOLACTONE 25 MG TAB PO SCH ×2 (05:25→17:35)
[2016-05-16] MEDS: PANTOPRAZOLE 40 MG INJ IV SCH (05:27)
[2016-05-16] MEDS: FUROSEMIDE 40 MG INJ IV SCH (05:29)
[2016-05-16 05:36] LABS: ALBUMIN 2.4 g/dl (3.3-4.9)
[2016-05-16 05:37] LABS: POTASSIUM 3.5 mmol/L (3.5-5.1)
[2016-05-16 05:38] LABS: CREATININE 0.53 mg/dl (0.61-1.24)
[2016-05-16 05:39] LABS: ALBUMIN/GLOBULIN RATIO 0.48; BILIRUBIN,INDIRECT 0.8 mg/dl (0-1.1); BILIRUBIN,TOTAL 0.8 mg/dl (0.2-1.3); TOTAL PROTEIN 7.3 g/dl (6.1-8.1)
[2016-05-16 05:40] LABS: CALCIUM 8.2 mg/dl (8.4-10.2)
[2016-05-16 05:42] LABS: HEMATOCRIT 27.6 % (42.0-52.0); HEMOGLOBIN 9.2 g/dl (14.0-18.0); MEAN CORPUSCULAR HEMOGLOBIN 31.7 pg (29.0-33.0); MEAN CORPUSCULAR HGB CONC 33.3 g/dl (32.0-37.0); MEAN CORPUSCULAR VOLUME 95.3 fl (82.0-101.0); MEAN PLATELET VOLUME 8.1 fl (7.4-10.4); PLATELET COUNT 252 10^3/UL (140-440); RED BLOOD COUNT 2.89 10^6/ul (4.70-6.10); RED CELL DISTRIBUTION WIDTH 18.8 % (11.5-14.5); UNCORRECTED WBC 6.5 10^3/ul (4.8-10.8); WHITE BLOOD COUNT 6.5 10^3/ul (4.8-10.8)
[2016-05-16 05:59] LABS: CONDITION 1; LH ANALYZER COMMENTS 1
[2016-05-16 07:48] LABS: BASOPHIL # 0.1 10^3/ul (0.0-0.1); EOSINOPHILS # 0.1 10^3/ul (0.0-0.5); LYMPHOCYTES # 0.7 10^3/ul (0.8-2.9); MONOCYTE # 0.4 10^3/ul (0.3-0.9); NEUTROPHIL # 5.1 10^3/ul (1.6-7.5)
[2016-05-16 08:00] VITALS: BP 130/77; PULSE 95; RESP 22
[2016-05-16] MEDS: MULTIVITAMINS 10 ML, THIAMINE 100 MG, FOLIC ACID 1 MG in SOD CHLORIDE 0.9% 1,000 ML IVPB SCH (09:12)
[2016-05-16 09:55] VITALS: BP 94/57; PULSE 106; RESP 19
--- NOTE | 2016-05-16 12:20 | RADRPT ---
PROCEDURE: CT Brain without contrast. CLINICAL INDICATION: Neurologic deficit, encephalopathy TECHNIQUE: A CT of the brain was performed on multidetector high-resolution CT scanner utilizing a xial sections from the skull base through the vertex without contrast. DOSE: CTDI = 43 mGy and the DLP = 630 mGy-cm. COMPARISON: Head CT 01/23/2015 FINDINGS: No acute intracranial hemorrhage, significant mass effect or midline shift.Patchy hypoattenuation of the cerebral white matter is most consistent with mildchronic microvascular ischemic changes.Athero sclerotic calcifications of the cavernous segments of the internal carotid arteries are seen. Cortic al encephalomalacia of the bilateral frontal lobes, right greater than left. The ventricles are stab le size. No significant opacification of the visualized paranasal sinuses or mastoids. IMPRESSION: No significant interval change identified since 01/23/2015. No acute intracranial hemorrhage or significant mass effect. Cortical encephalomalacia of the bilateral frontal lobes, right greater than left, is probably relat ed to prior trauma. Mild chronic microvascular disease. RPTAT: AA .Bandar Holland MD, MD Date Time Electronically viewed and signed by .Bandar Holland MD, on 05/16/2016 12:19 .T/
--- NOTE | 2016-05-16 14:35 | PN ---
Date/Time of Note Date/Time of Note DATE: 05/16/16 TIME: 14:30 Assessment/Plan VTE Prophylaxis VTE Prophylaxis Intervention: SCD's Lines/Catheters IV [facility] Peripheral IV Urinary Cath still in place: No Assessment/Plan Assessment/Plan 1. Upper gastrointestinal bleed secondary to esophageal varices GI consult appreciated, EGD done and showed multiple esophageal varices status post ligation H an H is stable Status post octreotide and Protonix drips / Now NPO for altered mental status 2. Encephalopathy / Lethargy: no significant improvement Patient started on rectal lactulose / librium D/c / ammonia levels normal x 2 days / EEG shows Encephalopathy CT shows no acute abnormalities / F/U MRI findins 3. Acute on chronic anemia 2/2 Blood loss - stable Workup is normal with normal iron as well as normal vitamin B12 and folate 4. Alcohol related liver disease with ascites Continue with Lasix and Aldactone the patient will be advised for cessation social services specialist consultation 4. 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 Leucocytosis + bandemia Bandemia improving, will get blood cultures and urine cultures. 5. Prophylaxis: Sequential compression devices. Dispo: PT Eval still pending ST eval noted, recommends Strict NPO Continue NPO till more alert or cleared by ST / Deep suctioning / Supportive care Subjective 24 Hr Interval Summary Free Text/Dictation patient remains confused Exam/Review of Systems Vital Signs Vitals Vital Signs Date Time Temp Pulse Resp B/P Pulse Ox O2 Delivery O2 Flow Rate FiO2 05/16/16 12:47 2.0 05/16/16 09:55 106 19 94/57 95 05/16/16 08:00 Nasal Cannula 05/16/16 08:00 98.2 Intake and Output 05/15/16 05/15/16 05/16/16 15:00 23:00 07:00 Intake Total 1010 ml 0 ml Output Total 1250 ml 350 ml Balance -240 ml -350 ml Exam Constitutional: other (chronically ill looking, moans in response to name, huge aspiration risk), No alert, No oriented Psych: other Intermittent agitation and confusion Head: normocephalic Eyes: icteric ENMT: No mucosa pink and moist (dry) Respiratory: crackles/rales (loud, gurgling sounds) Cardiovascular: regular rate and rhythm, No murmurs/extra sounds Gastrointestinal: bowel sounds, distended, soft Genitourinary - Male: other (condom cath to bedside drainage) Extremities: edema (trace) Neurological: confused, lethargic, No nl mental status, No nl speech, No nl strength Skin: other (jaundiced) Results Result Diagram: 05/16/1613 05/16/1613 Results 24 hrs Laboratory Tests Test 05/16/16 05:13 Alanine Aminotransferase (ALT/SGPT) 38 Albumin 2.4 L Albumin/Globulin Ratio 0.48 Alkaline Phosphatase 171 H Anion Gap 11 Aspartate Amino Transf (AST/SGOT) 56 H Band Neutrophils % 3.0 Basophils # 0.1 Basophils % 1.0 Blood Morphology Comment Blood Urea Nitrogen 13 Calcium Level 8.2 L Carbon Dioxide Level 26 Chloride Level 106 Creatinine 0.53 L Direct Bilirubin 0.00 Eosinophils # 0.1 Eosinophils % 1.0 Globulin 4.90 H Glucose Level 92 Hematocrit 27.6 L Hemoglobin 9.2 L Indirect Bilirubin 0.8 Lymphocytes # 0.7 L Lymphocytes % 10.0 L Magnesium Level 2.0 Mean Corpuscular Hemoglobin 31.7 Mean Corpuscular Hemoglobin Concent 33.3 Mean Corpuscular Volume 95.3 Mean Platelet Volume 8.1 Monocytes # 0.4 Monocytes % 6.0 Neutrophils # 5.1 Neutrophils % 79.0 H Platelet Count 252 Potassium Level 3.5 Red Blood Count 2.89 L Red Cell Distribution Width 18.8 H Sodium Level 139 Total Bilirubin 0.8 Total Protein 7.3 White Blood Count 6.5 Medications Medications Current Medications Ondansetron HCl (Zofran Inj) 4 mg Q6H PRN IV NAUSEA AND/OR VOMITING; Start 05/07/16 at 19:30 Morphine Sulfate (morphine) 2 mg Q4H PRN IV SEVERE PAIN LEVEL 7-10 Last administered on 05/08/16at 20:08; Admin Dose 2 MG; Start 05/07/16 at 19:30 Docusate Sodium 100 mg 100 mg Q12H PRN PO CONSTIPATION; Start 05/07/16 at 19:30 Multivitamins/ Thiamine HCl/ Folic Acid/Sodium Chloride (Mvi-12 Adult/ Vitamin B1/Folic Acid/NS) 1,011.2 ml @ 75 mls/hr DAILY@09 IVPB Last administered on at 09:12; Admin Dose 75 MLS/HR; Start 05/09/16 at 16:30 Lorazepam (Ativan) 1 mg Q2 PRN IV AGITATION/ANXIETY; Start 05/09/16 at 16:30 Furosemide (Lasix) 40 mg DAILY@06 IV Last administered on 05/16/16at 05:29; Admin Dose 40 MG; Start 05/10/16 at 14:30 Pantoprazole (Protonix Iv) 40 mg DAILY@06 IV Last administered on 05/16/16at 05 :27; Admin Dose 40 MG; Start 05/14/16 at 06:00 Lactulose (Lactulose Enema) 100 ml Q6 W[place] Last administered on 05/16/16at 12:35 ; Admin Dose 100 ML; Start 05/13/16 at 18:00 Procedures Procedures PROCEDURE: CT Brain without contrast. CLINICAL INDICATION: Neurologic deficit, encephalopathy TECHNIQUE: A CT of the brain was performed on multidetector high-resolution CT scanner utilizing axial sections from the skull base through the vertex without contrast. DOSE: CTDI = 43 mGy and the DLP = 630 mGy-cm. COMPARISON: Head CT 01/23/2015 FINDINGS: No acute intracranial hemorrhage, significant mass effect or midline shift.Patchy hypoattenuation of the cerebral white matter is most consistent with mildchronic microvascular ischemic changes.Atherosclerotic calcifications of the cavernous segments of the internal carotid arteries are seen. Cortical encephalomalacia of the bilateral frontal lobes, right greater than left. The ventricles are stable size. No significant opacification of the visualized paranasal sinuses or mastoids. IMPRESSION: No significant interval change identified since 01/23/2015. No acute intracranial hemorrhage or significant mass effect. Cortical encephalomalacia of the bilateral frontal lobes, right greater than left, is probably related to prior trauma. Mild chronic microvascular disease. RPTAT: AA .Bandar Holland MD, MD Date Time Electronically viewed and signed by .Bandar Holland MD, MD on 05/16/2016 12:19 DATE: 05/15/2016 ELECTROENCEPHALOGRAM INDICATION: A 70-year-old gentleman with history of alcohol abuse and encephalopathy. DESCRIPTION OF PROCEDURE: Routine EEG recorded digitally. [id number] and [id number] montages were recorded and reviewed. All impedances were measured and recorded. Cap electrodes were placed in accordance to International 10-20 system of electrode placement. FINDINGS: Symmetrically distributed background activity of low amplitude ranging in frequency between 4 to 8 cycles per second was seen most of the recording, at times slightly faster. Photic stimulation produces no definite driving. No epileptiform transients were seen. No signs of ongoing electrographic seizures or lateralized slowing. IMPRESSION: Abnormal study secondary to background slowing which could reflect presence of encephalopathy, possibly toxic metabolic type. Please correlate clinically. Dictated By: APURVA BURGESS/STEVE Conf#: [id number] DID#: [id number] KASH OLVERA May 16, 2016 14:35
--- NOTE | 2016-05-16 18:20 | CONS ---
Date/Time of Note Date/Time of Note DATE: 05/16/16 TIME: 18:16 Assessment/Plan Assessment/Plan Additional Assessment/Plan Hematemesis s/p EGD: Grade IV/IV esophageal varices with stigmata of recent bleeding "white plug."Post-endoscopic variceal ligation x4. Anemia Abdominal pain Nausea, resolved History of EtOH abuse Ascites, improving Transaminitis, acute hepatitis serology negative Plan: Continue Lasix, Aldactone, and PPI Monitor H&H every 6 hours, transfuse 2 units for Hgb <7.5 Ultrasound paracentesis when necessary Lactulose 3 times a day to produce 2-3 bowel movements per day Advance diet as tolerated Patient should be followed up with an EGD and possible further banding in 8 to 12 weeks. Further recommendations depend on clinical course Patient seen in collaboration with Dr. Ochoa Consultation Date/Type/Reason Admit Date/Time May 07, 2016 at 14:39 24 HR Interval Summary Free Text/Dictation Patient unable to complete swallow evaluation At bedside patient more alert and asking for coffee Sanguinous discharge suctioned from throat throughout the day Exam/Review of Systems Vital Signs Vitals Vital Signs Date Time Temp Pulse Resp B/P Pulse Ox O2 Delivery O2 Flow Rate FiO2 05/16/16 12:47 2.0 05/16/16 09:55 106 19 94/57 95 05/16/16 08:00 Nasal Cannula 05/16/16 08:00 98.2 Intake and Output 05/15/16 05/15/16 05/16/16 15:00 23:00 07:00 Intake Total 1010 ml 0 ml Output Total 1250 ml 350 ml Balance -240 ml -350 ml Exam Constitutional: Alert and awake Psych: confusion Respiratory: normal air movement, 2L NC Cardiovascular: regular rate and rhythm Gastrointestinal: distended, firm Results Result Diagram: 05/16/16 0513 05/16/16 0513 Results 24 hrs Laboratory Tests Test 05/16/16 05:13 Alanine Aminotransferase (ALT/SGPT) 38 Albumin 2.4 L Albumin/Globulin Ratio 0.48 Alkaline Phosphatase 171 H Anion Gap 11 Aspartate Amino Transf (AST/SGOT) 56 H Band Neutrophils % 3.0 Basophils # 0.1 Basophils % 1.0 Blood Morphology Comment Blood Urea Nitrogen 13 Calcium Level 8.2 L Carbon Dioxide Level 26 Chloride Level 106 Creatinine 0.53 L Direct Bilirubin 0.00 Eosinophils # 0.1 Eosinophils % 1.0 Globulin 4.90 H Glucose Level 92 Hematocrit 27.6 L Hemoglobin 9.2 L Indirect Bilirubin 0.8 Lymphocytes # 0.7 L Lymphocytes % 10.0 L Magnesium Level 2.0 Mean Corpuscular Hemoglobin 31.7 Mean Corpuscular Hemoglobin Concent 33.3 Mean Corpuscular Volume 95.3 Mean Platelet Volume 8.1 Monocytes # 0.4 Monocytes % 6.0 Neutrophils # 5.1 Neutrophils % 79.0 H Platelet Count 252 Potassium Level 3.5 Red Blood Count 2.89 L Red Cell Distribution Width 18.8 H Sodium Level 139 Total Bilirubin 0.8 Total Protein 7.3 White Blood Count 6.5 Medications Medications Current Medications Ondansetron HCl (Zofran Inj) 4 mg Q6H PRN IV NAUSEA AND/OR VOMITING; Start 05/07/16 at 19:30 Morphine Sulfate (morphine) 2 mg Q4H PRN IV SEVERE PAIN LEVEL 7-10 Last administered on 05/08/16at 20:08; Admin Dose 2 MG; Start 05/07/16 at 19:30 Docusate Sodium 100 mg 100 mg Q12H PRN PO CONSTIPATION; Start 05/07/16 at 19:30 Multivitamins/ Thiamine HCl/ Folic Acid/Sodium Chloride (Mvi-12 Adult/ Vitamin B1/Folic Acid/NS) 1,011.2 ml @ 75 mls/hr DAILY@09 IVPB Last administered on at 09:12; Admin Dose 75 MLS/HR; Start 05/09/16 at 16:30 Lorazepam (Ativan) 1 mg Q2 PRN IV AGITATION/ANXIETY; Start 05/09/16 at 16:30 Furosemide (Lasix) 40 mg DAILY@06 IV Last administered on 05/16/16at 05:29; Admin Dose 40 MG; Start 05/10/16 at 14:30 Pantoprazole (Protonix Iv) 40 mg DAILY@06 IV Last administered on 05/16/16at 05 :27; Admin Dose 40 MG; Start 05/14/16 at 06:00 Lactulose (Lactulose Enema) 100 ml Q6 [place] Last administered on 05/16/16at 17:39 ; Admin Dose 100 ML; Start 05/13/16 at 18:00 GEOVANNI ALMODOVAR May 16, 2016 18:20
[2016-05-16 20:56] VITALS: BP 117/63; PULSE 109; RESP 18
[2016-05-17] VITALS (43 sets, daily range): BP systolic 86–139; BP diastolic 48–84; PULSE 85–132; RESP 19–32
[2016-05-17] MEDS: LACTULOSE ENEMA 1,000 ML BTL PR SCH ×4 (00:32→18:00)
[2016-05-17] MEDS: SPIRONOLACTONE 25 MG TAB PO SCH (05:03)
[2016-05-17] MEDS: PANTOPRAZOLE 40 MG INJ IV SCH (05:05)
[2016-05-17] MEDS: FUROSEMIDE 40 MG INJ IV SCH (05:06)
[2016-05-17 06:10] LABS: ALBUMIN 2.2 g/dl (3.3-4.9); POTASSIUM 3.7 mmol/L (3.5-5.1)
[2016-05-17 06:12] LABS: CREATININE 0.62 mg/dl (0.61-1.24)
[2016-05-17 06:13] LABS: ALBUMIN/GLOBULIN RATIO 0.53; BILIRUBIN,INDIRECT 0.6 mg/dl (0-1.1); BILIRUBIN,TOTAL 0.6 mg/dl (0.2-1.3); TOTAL PROTEIN 6.3 g/dl (6.1-8.1)
[2016-05-17 06:14] LABS: CALCIUM 7.7 mg/dl (8.4-10.2)
[2016-05-17] MEDS ORDERED: SOD CHLORIDE 0.9% 500 ML IV ONE ×2 (08:00→17:00)
[2016-05-17 08:51] LABS: HEMATOCRIT 17.4 % (42.0-52.0)
[2016-05-17 09:22] LABS: HEMOGLOBIN 5.7 g/dl (14.0-18.0)
[2016-05-17] MEDS ORDERED: LIDOCAINE 1% (MDV) 20 ML INJ SC ONE (09:30)
[2016-05-17] MEDS ORDERED: OCTREOTIDE 50 MCG in SOD CHLORIDE 0.9% 50 ML IVPB ONE (09:30)
[2016-05-17] MEDS ORDERED: OCTREOTIDE 1 MG in SOD CHLORIDE 0.9% 95 ML IV SCH (10:00)
[2016-05-17] MEDS ORDERED: SOD CHLORIDE 0.9% 250 ML IV* ONE (10:08)
[2016-05-17 10:10] LABS: INR 1.85; PROTIME 21.5 Sec (12.2-14.2); PT RATIO 1.7
--- NOTE | 2016-05-17 10:15 | RADRPT ---
PROCEDURE: XR Chest. CLINICAL INDICATION: NG tube placement TECHNIQUE: Chest AP portable. COMPARISON: 05/14/2016 FINDINGS: A nasogastric tube is in the body of the stomach. The mediastinal structures are unremarkable. There is calcification of the thoracic aorta (consiste nt with atherosclerosis). The heart is normal in size and configuration. The pulmonary vascularity i s normal. There are low lung volumes. There is mild bibasilar subsegmental atelectasis. The pleura l spaces are unremarkable. There are senescent changes of the axial skeleton. IMPRESSION: Low lung volumes. Mild bibasilar subsegmental atelectasis. RPTAT: HGDB .Parth Thomas MD, Date Time Electronically viewed and signed by .Parth Thomas MD, on 05/17/2016 10:14 .B/
--- NOTE | 2016-05-17 10:15 | CONS ---
Date/Time of Note Date/Time of Note DATE: 05/17/16 TIME: 09:59 Assessment/Plan Assessment/Plan Additional Assessment/Plan Hematemesis s/p EGD: Grade IV/IV esophageal varices with stigmata of recent bleeding "white plug."Post-endoscopic variceal ligation x4. Anemia, precipitous drop in Hemoccult, plan for emergent bedside EGD in ICU Abdominal pain Nausea History of EtOH abuse Ascites, improving Transaminitis, acute hepatitis serology negative Plan: Protonix and octreotide continuous drip Continue Lasix, Aldactone Monitor H&H every 6 hours, transfuse 2 units for Hgb <7.5 Ultrasound paracentesis when necessary Lactulose 3 times a day to produce 2-3 bowel movements per day N.p.o. Patient should be followed up with an EGD and possible further banding in 8 to 12 weeks. Further recommendations depend on clinical course Patient seen in collaboration with Dr. Ochoa Consultation Date/Type/Reason Admit Date/Time May 07, 2016 at 14:39 24 HR Interval Summary Free Text/Dictation Patient more hypotensive reports of bright red blood per rectum Patient transferred to ICU, NG tube inserted, 2 units PRBC in process Patient has received octreotide bolus and will continue octreotide drip Stat EGD in process Exam/Review of Systems Vital Signs Vitals Vital Signs Date Time Temp Pulse Resp B/P Pulse Ox O2 Delivery O2 Flow Rate FiO2 05/17/16 09:23 130 05/17/16 08:21 2.0 05/17/16 08:21 87/48 96 Nasal Cannula 05/17/16 08:00 30 05/17/16 07:30 98.9 Intake and Output 05/16/16 05/16/16 05/17/16 15:00 23:00 07:00 Intake Total 525 ml 486.2 ml Output Total 2100 ml 300 ml Balance -1575 ml 186.2 ml Exam Constitutional: non verbal Psych: confusion Respiratory: normal air movement, 2L NC Cardiovascular: regular rate and rhythm Gastrointestinal: distended, firm Results Result Diagram: 05/17/16 0840 05/17/16 0430 Results 24 hrs Laboratory Tests Test 05/17/16 04:30 05/17/16 08:40 Alanine Aminotransferase (ALT/SGPT) 37 Albumin 2.2 L Albumin/Globulin Ratio 0.53 Alkaline Phosphatase 134 H Anion Gap 13 Aspartate Amino Transf (AST/SGOT) 62 H Blood Urea Nitrogen 25 #H Calcium Level 7.7 L Carbon Dioxide Level 26 Chloride Level 106 Creatinine 0.62 Direct Bilirubin 0.00 Globulin 4.10 H Glucose Level 103 Indirect Bilirubin 0.6 Potassium Level 3.7 Sodium Level 141 Total Bilirubin 0.6 Total Protein 6.3 # Hematocrit 17.4 #L Hemoglobin 5.7 #*L Medications Medications Current Medications Ondansetron HCl (Zofran Inj) 4 mg Q6H PRN IV NAUSEA AND/OR VOMITING; Start 05/07/16 at 19:30 Morphine Sulfate (morphine) 2 mg Q4H PRN IV SEVERE PAIN LEVEL 7-10 Last administered on 05/08/16at 20:08; Admin Dose 2 MG; Start 05/07/16 at 19:30 Docusate Sodium 100 mg 100 mg Q12H PRN PO CONSTIPATION; Start 05/07/16 at 19:30 Multivitamins/ Thiamine HCl/ Folic Acid/Sodium Chloride (Mvi-12 Adult/ Vitamin B1/Folic Acid/NS) 1,011.2 ml @ 75 mls/hr DAILY@09 IVPB Last administered on at 09:12; Admin Dose 75 MLS/HR; Start 05/09/16 at 16:30 Lorazepam (Ativan) 1 mg Q2 PRN IV AGITATION/ANXIETY; Start 05/09/16 at 16:30 Furosemide (Lasix) 40 mg DAILY@06 IV Last administered on 05/17/16at 05:06; Admin Dose 40 MG; Start 05/10/16 at 14:30 Pantoprazole (Protonix Iv) 40 mg DAILY@06 IV Last administered on 05/17/16at 05 :05; Admin Dose 40 MG; Start 05/14/16 at 06:00 Lactulose 100 ml 100 ml Q6 [place] Last administered on 05/17/16at 05:07; Admin Dose 100 ML; Start 05/13/16 at 18:00 Pantoprazole 80 mg/Sodium Chloride 100 ml @ 10 mls/hr Q10H IV ; Start at 09:30 Octreotide Acetate/Sodium Chloride (Sandostatin/NS) 50 ml @ 2.5 mls/hr Q20H IV ; Start 05/17/16 at 09:30 GEOVANNI ALMODOVAR May 17, 2016 10:09
--- NOTE | 2016-05-17 10:55 | QN ---
Documentation Comment To Whom It May Concern, Patient needs emergent lifesaving transfusion of blood and blood products, PICC LIne placement and Endoscopy to halt severe and rapid GI bleeding. All attempt to reach family have been unsuccessful. Patient is unable to verbalize consent. To our knowledge after extensive research, patient has no conservator or DPOA, hence we will proceed with life saving interventions out of medical necessity. KASH OLVERA. May 17, 2016 10:55
[2016-05-17 11:00] LABS: RED BLOOD COUNT 1.82 10^6/ul (4.70-6.10); UNCORRECTED WBC 16.9 10^3/ul (4.8-10.8); WHITE BLOOD COUNT 16.9 10^3/ul (4.8-10.8)
[2016-05-17 11:01] LABS: Arterial Base Excess -8.2 mmol/L (-3.0-3); Arterial HCO3 15.7 mmol/L (22.0-26.0); Arterial MetHb 0.2 % (0.0-1.5); Arterial Total Hemglobin 5.4 g/dl (12.0-18.0); MODE MASK - NRB
[2016-05-17 11:01] LABS: HEMATOCRIT 17.4 % (42.0-52.0); HEMOGLOBIN 5.7 g/dl (14.0-18.0); MEAN CORPUSCULAR HEMOGLOBIN 31.2 pg (29.0-33.0); MEAN CORPUSCULAR HGB CONC 32.5 g/dl (32.0-37.0); MEAN CORPUSCULAR VOLUME 95.9 fl (82.0-101.0); RED CELL DISTRIBUTION WIDTH 18.8 % (11.5-14.5)
[2016-05-17 11:03] LABS: MEAN PLATELET VOLUME 8.4 fl (7.4-10.4); PLATELET COUNT 292 10^3/UL (140-440)
--- NOTE | 2016-05-17 11:26 | RADRPT ---
PROCEDURE: Ultrasound guidance for placement of needle in left upper extremity vein. CLINICAL INDICATION: Venous access. TECHNIQUE: Limited sonography of the left upper extremity was performed. Ultrasound images were recorded and s tored in the patient's medical record. COMPARISON: None. FINDINGS: The ultrasound images demonstrate a patent left upper extremity vein. The PICC line was inserted by the PICC line nurse. IMPRESSION: 1. Ultrasound guidance for a needle placement in a left upper extremity vein. 2. The left upper extremity vein is patent. RPTAT: QQ .Omar Moreira MD, MD Date Time Electronically viewed and signed by .Omar Moreira MD, MD on 05/17/2016 11:26 .R/
--- NOTE | 2016-05-17 11:31 | RADRPT ---
PROCEDURE: XR Chest. CLINICAL INDICATION: Check PICC line position. TECHNIQUE: Single frontal view. COMPARISON: Prior study done earlier the same day. FINDINGS: There is a left arm PICC line with the tip in the lower superior vena cava. There is mild atelectas is at the lung bases and low lung volumes, unchanged. A nasogastric tube is present with the tip in the stomach. The heart size is normal. There is no pleural effusion. There is no pneumothorax. IMPRESSION: 1. Satisfactory position of left arm PICC line. 2. Nasogastric tube tip in the stomach. 3. Low lung volumes. 4. Mild atelectasis at the lung bases. Results given to the PICC line nurse immediately following the study. RPTAT: QQ .Omar Moreira MD, Date Time Electronically viewed and signed by .Omar Moreira MD, on 05/17/2016 11:30 .R/
[2016-05-17] MEDS ORDERED: PROPOFOL 100 ML ONE (11:39)
--- NOTE | 2016-05-17 11:52 | RADRPT ---
PROCEDURE: Chest Radiograph. CLINICAL INDICATION: Post intubation TECHNIQUE: Single frontal chest radiograph. COMPARISON: Chest radiograph 05/17/1969 11:25 a.m. FINDINGS: There has been interval placement of an endotracheal tube with distal tip approximately 1.3 cm above the erasto. A left upper extremity PICC and nasogastric tube remain in stable and radiographically appropriate position. Lung volumes are decreased there is mild basilar atelectasis. No infiltrate or effusion is seen. The bones are intact. IMPRESSION: 1. Interval placement of endotracheal tube with distal tip approximate 1.3 cm above the erasto. 2. Improved aeration of the bilateral lung jaquez. 3. Otherwise stable radiographic appearance of chest compared to 11:25 a.m. RPTAT: GG .René Dorman MD, Date Time Electronically viewed and signed by .René Dorman MD, on 05/17/2016 11:52 .B/
[2016-05-17] MEDS ORDERED: PHYTONADIONE 10 MG in DEXTROSE 5% 50 ML IVPB ONE (12:00)
[2016-05-17 12:20] LABS: ANISOCYTOSIS 2+; MONOCYTE # 0.5 10^3/ul (0.3-0.9); NEUTROPHIL # 13.7 10^3/ul (1.6-7.5)
[2016-05-17] MEDS: PANTOPRAZOLE IV 80 MG in SOD CHLORIDE 0.9% 100 ML IV SCH ×2 (13:05→23:02)
[2016-05-17] MEDS: OCTREOTIDE 500 MCG in SOD CHLORIDE 0.9% 49 ML IV SCH (13:05)
[2016-05-17] MEDS: PROPOFOL 100 ML IV SCH ×2 (13:06→19:42)
[2016-05-17 13:17] LABS: AADO2 Arterial 498.2 mmHg (7.0-24.0); Allen Test ACCEPTAB; Arterial COHb 0.3 % (0.0-3.0); Arterial Fraction of Oxyhgb 98.4 % (93.0-99.0); Arterial HCO3 17.4 mmol/L (22.0-26.0); Arterial MetHb 0.2 % (0.0-1.5); MODE VENT - AC
[2016-05-17] MEDS ORDERED: SOD CHLORIDE 0.9% 100 ML ONE (13:27)
--- NOTE | 2016-05-17 13:57 | PN ---
DATE: 05/17/2016 SUBJECTIVE: The patient was evaluated multiple times today. I was initially called to the bedside by nursing staff earlier this morning as the patient had had a large bloody bowel movement. Vital si gns immediately post that showed that he was hypotensive with systolic blood pressure in the 80s and tachycardic with heart rates in the 130s. Patient was alert and responding to his name and questio ns, but he was significantly lethargic. I instituted the following resuscitative measures. We gave him saline bolus that his blood pressure responded well to. I also ordered stat transfusion of 2 uni ts of packed red cells, I notified the GI team that the patient might need to be returned to the ___ _ lab. Based on his history of esophageal varices and recent banding and I ordered that the patient be transferred to the telemetry floor. Not long after that, upon the patient's arrival on the telem etry floor, a rapid response was called, and I again responded to that. Upon arrival, indication for rapid response was the fact that the patient was vomiting bright red blood and his blood pressure a gain was assessed. Systolic was staying steady in the 120s, but he remained tachycardic in the 130s. Upon my review, the patient was still having dry heaves and very uncomfortable and as such, I orde red that the patient immediately get an NG tube placed to suction, which was done by myself and nurs ing at the bedside. We also gave the patient a second ____ IV, so that his blood can be transfused as soon as available. I ordered for stat Protonix and Sandostatin drips; however, in the interim __ __, we gave one dose of IV Protonix push. Again, IV normal saline continued to flow at a rapid rate. After this assessment, I spoke with GI again. He is being planned for an EGD as soon as possible, but in the interim I felt patient to be better served in the intensive care unit; hence, I transferr ed the patient to the intensive care unit. At this time, he is in the intensive care unit. NG tube is in place to suction. The patient looks a little more comfortable; however, we were unable to ge t a good second IV access and, as such, he is going to need a stat PICC line. Of note is that this patient has had no family, which ____ this long hospitalization. He is homeless and known alcoholic and as such, we would have to put in a PICC line out of medical necessity and this will be done champ gently to save his life. PHYSICAL EXAMINATION: VITAL SIGNS: At this time, his latest vital signs: Temperature is 98.9, his pulse is 130, respirati ons 30, blood pressure 87/48 with oxygen via nasal cannula at 3 liters a minute, and he is saturatin g 96%. GENERAL: The patient is very lethargic, but he is alert as mentioned earlier. He does respond when spoken to. He responds to questions about pain and he also responds to his name. HEENT: Head is normocephalic. His sclerae are jaundiced, but his pupils are equal and reactive and he does have conjunctival pallor. Mucous membranes are very dry. NECK: Supple, without JVD. CHEST: He has clear breath sounds, but with significant reduction in air entry bilaterally. There i s a coarse quality to his breath sounds as well. CARDIOVASCULAR: He is tachycardic with no murmurs. ABDOMEN: Soft, not overtly tender and he has bowel sounds. EXTREMITIES: Lower extremities, he has trace edema bilaterally. NEUROLOGIC: He has been seen to move all extremities and again as mentioned earlier, alert and seem s oriented, but patient does have a chronic encephalopathy with history of confusion and yelling at staff before this. LABORATORY VALUES: A stat hemoglobin that was done at the bedside revealed a hemoglobin of 5.7, hem atocrit of 17.4 and his chemistry that was also done, does show a chronic elevation in his AST, and alkaline phosphatase. Calcium was also low at 7.7 and his BUN was elevated at 25 and he has a low al bumin at 2.2. All the other indices were normal. A stat coag profile shows an INR to be at 1.8, PT at 21.5. IMAGING: A chest x-ray was done to confirm NG tube placement and it does show good positioning, it also shows low lung volumes and mild bibasilar subsegmental atelectasis. ASSESSMENT: 1. Acute significant gastrointestinal bleed, secondary to #2. 2. Known multiple esophageal varices status post ligation on this hospitalization. 3. Chronic alcoholic cirrhosis. 4. Acute on chronic anemia secondary to blood loss. 5. Subacute encephalopathy that is thought to be secondary to a component of hepatic encephalopathy , but we cannot rule out other causes at this time, including Wernicke encephalopathy. 6. Chronic homelessness. 7. Leukocytosis that has been associated with bandemia, for which workup is in process. PLAN OF CARE: 1. The patient is to remain in the intensive care unit until definitive GI procedure. 2. Will transfuse 2 units of red cells as mentioned earlier, but will also be given vitamin K and F FP because of the coagulopathy associated with his cirrhosis and patient has been resumed on Protoni x as well as octreotide drip. 3. Patient will remain n.p.o., of course, with NG tube in place with oxygen. 4. Will do serial hemoglobin and hematocrit every 6 hours and intervene as indicated. 5. In the interim, will continue to work on placement and trying to find family members on this pat ient. greenhouse florist are aware and working on this. 6. Other supportive care will include antipyretics and antiemetics as needed. Further interventions will depend on critical care course. I have discussed this plan with nursing staff ____ consulting attendants ____, nursing flame cutting supervisor. Overall time spent evaluating this patient has been more than 70 minutes of which more than half was critical care. For further information and clarification, please review the chart and nursing note s. The patient, as mentioned earlier, will need PICC line as a matter of medical necessity and emerg ency. Dictated By: KASH OLVERA MD BA/NTS Conf#: [id number] DID#: [id number]
[2016-05-17 14:35] LABS: HEMATOCRIT 27.4 % (42.0-52.0); HEMOGLOBIN 9.2 g/dl (14.0-18.0)
--- NOTE | 2016-05-17 19:04 | CONS ---
DATE OF ADMISSION: 05/07/2016 DATE OF CONSULTATION: 05/17/2016 TYPE OF CONSULTATION: Pulmonary. REASON FOR CONSULTATION: Respiratory failure. HISTORY OF PRESENT ILLNESS: This is an unfortunate 70-year-old gentleman with a history of alcohol abuse, recent upper GI bleed. This morning was more somnolent requiring transfer to the intensive c are unit. There required emergent intubation and mechanical ventilation for airway protection, pendi ng colonoscopy. PAST MEDICAL HISTORY: ETOH abuse, esophageal varices with prior ligation, encephalopathy secondary to ETOH. MEDICATIONS: Per chart. ALLERGIES: NONE. SOCIAL HISTORY: Tobacco, alcohol history, currently unknown. FAMILY HISTORY: Noncontributory. SYSTEMS REVIEW: A 12-point review of systems currently unable to perform. PHYSICAL EXAMINATION: GENERAL: Elderly gentleman, mostly somnolent on mechanical ventilation. VITAL SIGNS: Currently afebrile, pulse is 100, blood pressure 107/78, O2 saturation 96%, FIO2 of 80 %. NECK: Supple, no JVD or lymphadenopathy. CARDIAC: S1, S2, no added sounds or murmurs. CHEST: Diminished air entry bilaterally. ABDOMEN: Soft, nontender. No guarding or rebound. EXTREMITIES: No cyanosis, clubbing or edema. NEUROLOGIC: Generalized weakness. LABORATORIES: White count 1____.9, hemoglobin 5.7, platelets of 292. Chemistry: BUN 25, creatinin e 0.62. INR was 1.85. ABG post-intubation pH 7.3, pCO2 of 30, PaO2 of 186, bicarbonate 17. IMPRESSION AND PLAN: 1. Acute gastrointestinal bleed. 2. Severe anemia. 3. Hypertensive shock. 4. History of ETOH abuse with esophageal varices and portal hypertension. The patient will need: 1. Emergently intubated for airway protection. 2. Emergent endoscopy per GI. 3. Transfusion of packed red blood cells. 4. Correction of coagulopathy. 5. DVT and GI prophylaxis. Dictated By: JAMILA TAMAYO/STEVE Conf#: [id number] DID#: [id number]
[2016-05-17] MEDS: MULTIVITAMINS 10 ML, THIAMINE 100 MG, FOLIC ACID 1 MG in SOD CHLORIDE 0.9% 1,000 ML IVPB SCH (19:41)
[2016-05-17 20:20] LABS: HEMATOCRIT 22.8 % (42.0-52.0); HEMOGLOBIN 7.7 g/dl (14.0-18.0)
[2016-05-18] VITALS (48 sets, daily range): BP systolic 82–138; BP diastolic 56–87; PULSE 91–106; RESP 12–35
[2016-05-18] MEDS ORDERED: SUCCINYLCHOLINE CHLORIDE 100 MG/5 ML SYG IV SCH (01:00)
[2016-05-18] MEDS ORDERED: ETOMIDATE 20 MG INJ IV SCH (01:00)
[2016-05-18 01:11] LABS: HEMATOCRIT 22.5 % (42.0-52.0); HEMOGLOBIN 7.7 g/dl (14.0-18.0)
--- NOTE | 2016-05-18 04:35 | SP ---
DATE OF PROCEDURE: 05/17/2016 PROCEDURE: Endotracheal intubation. REASON FOR PROCEDURE Airway protection. DESCRIPTION OF PROCEDURE: Patient was placed in supine position with neck extended. The patient wa s given etomidate and succinylcholine. Blood pressure, EKG and pulse oximetry were continuously mon itored. Vocal cords were visualized seizure using Sobeida blade 4 laryngoscope. A size 7.5 endot bam tube was passed through the cords and secured at 24 cm to the lip. CO2 capnometer was immed iately positive. The patient had equal breath sounds bilaterally. Post-intubation chest x-ray and ABG are pending at time of this dictation. Dictated By: JAMILA TRAVIS MD SV/STEVE Conf#: [id number] DID#: [id number]
[2016-05-18] MEDS: PROPOFOL 100 ML IV SCH (05:21)
[2016-05-18 05:58] LABS: HEMOGLOBIN 7.5 g/dl (14.0-18.0)
[2016-05-18] MEDS: LACTULOSE ENEMA 1,000 ML BTL PR SCH ×4 (06:00→18:00)
[2016-05-18 06:27] LABS: POTASSIUM 3.3 mmol/L (3.5-5.1)
[2016-05-18 06:29] LABS: CREATININE 0.94 mg/dl (0.61-1.24)
[2016-05-18 06:30] LABS: CALCIUM 8.1 mg/dl (8.4-10.2); MAGNESIUM 1.9 mg/dl (1.7-2.5); PHOSPHORUS 2.8 mg/dl (2.5-4.9)
--- NOTE | 2016-05-18 07:15 | PN ---
Date/Time of Note Date/Time of Note DATE: 05/18/16 TIME: 07:06 Assessment/Plan VTE Prophylaxis VTE Prophylaxis Intervention: SCD's VTE Contraindication Reason: bleeding, thrombocytopenia Lines/Catheters IV Catheter Type (from Nrsg): PICC Line Central line still needed: Yes Urinary Cath still in place: Yes Reason Cath still needed: other (indicate) Assessment/Plan Assessment/Plan 1. Respiratory failure on full vent support patient intubated for airway protection during acute GI bleed commence ventilator weaning/ appreciate pulm input 2. Upper gastrointestinal bleed secondary to esophageal varices GI consult much appreciated, s/p EGD x2 done and patient has multiple esophageal varices status post ligation H an H is still low but stable Remains on octreotide and Protonix drips / Now NPO for altered mental status 3. Encephalopathy / Lethargy: no significant improvement Patient started on rectal lactulose / librium D/c / ammonia levels normal x 2 days / EEG shows Encephalopathy CT shows no acute abnormalities Now sedated for Vent support 4. Acute on chronic anemia 2/2 Blood loss transfuse PRN / also give platelets/ FFP/ Vit K PRN 5. Alcohol related liver disease with ascites Continue with Lasix and Aldactone the patient will be advised for cessation if/when mentation improves professor of social work consultation 6. Homelessness CM working on placement 7. Leucocytosis + bandemia blood cultures and urine cultures still pending/ no overt evidence of severe infection hematology consult. 8. Prophylaxis: Sequential compression devices. Dispo: Ventilator weaning ICU supportive care Transfusion Further evaluation and treatment will be based on clinical course Full discussion with care team done. All questions Answered Please also see orders. Total time spent on this evaluation >35mins Subjective 24 Hr Interval Summary Free Text/Dictation was intubated emergently/prophylactically yesterday prior to emergent EGD for active profuse GI bleed EGD done and bleeding subsided stable on vent at this time Subjective hx not possible: pt critical status Exam/Review of Systems Vital Signs Vitals Vital Signs Date Time Temp Pulse Resp B/P Pulse Ox O2 Delivery O2 Flow Rate FiO2 05/18/16 06:30 92 20 101/64 100 Mechanical Ventilator 05/18/16 05:26 50 05/18/16 04:00 97.0 05/17/16 11:00 15.0 Intake and Output 05/17/16 05/17/16 05/18/16 15:00 23:00 07:00 Intake Total 1177.43 ml 368.756 ml 182.804 ml Output Total 100 ml 145 ml 225 ml Balance 1077.43 ml 223.756 ml -42.196 ml Exam Constitutional: other (comfortable on vent), No alert Eyes: icteric ENMT: intubated Respiratory: diminished breath sounds Cardiovascular: regular rate and rhythm, No murmurs/extra sounds Gastrointestinal: bowel sounds, distended, soft Extremities: edema Neurological: No nl mental status, No nl speech, No nl strength Results Result Diagram: 05/18/16 0550 05/18/16 0530 Results 24 hrs Laboratory Tests Test 05/17/16 08:40 05/17/16 08:45 05/17/16 10:56 05/17/16 13:06 Anisocytosis 2+ Band Neutrophils % 10.0 H Differential Comment MANUAL DIFF Hematocrit 17.4 L Hemoglobin 5.7 *L Lymphocytes # 1.0 Lymphocytes % 6.0 L Mean Corpuscular Hemoglobin 31.2 Mean Corpuscular Hemoglobin Concent 32.5 Mean Corpuscular Volume 95.9 Mean Platelet Volume 8.4 Monocytes # 0.5 Monocytes % 3.0 Neutrophils # 13.7 H Neutrophils % 81.0 H Platelet Count 292 Red Blood Count 1.82 #L Red Cell Distribution Width 18.8 H White Blood Count 16.9 #H INR International Normalized Ratio 1.85 Prothrombin Time 21.5 #H Prothrombin Time Ratio 1.7 Arterial Blood HCO3 15.7 L 17.4 L Arterial Blood Base Excess -8.2 L -7.0 L Arterial Blood Oxygen Saturation 99.2 H 98.9 H Tejinder Test N/A ACCEPTAB Arterial Blood Gas Puncture Site Right Brachial Right Radial Arterial Blood Carboxyhemoglobin 1.0 0.3 Arterial Blood Date Drawn 05/17/2016 10:50:50 AM 05/17/2016 1:05:22 PM Arterial Blood Methemoglobin 0.2 0.2 Arterial Blood pCO2 (Temp correct) 25.1 L 30.9 L Arterial Blood pH (Temp corrected) 7.415 7.369 Arterial Blood pO2 (Temp corrected) 188.9 H 183.9 H Blood Gas A-a O2 Differential 499.0 H 498.2 H Blood Gas Modality MASK - NRB VENT - AC Blood Gas Notified Time 05/17/2016 11:01:38 AM 05/17/2016 1:16:58 PM Blood Gas Notified Whom AUBREY BURGOS Blood Gas Specimen Source Blood arterial Blood arterial Blood Gas Temperature 37.0 37.0 FiO2 100.0 100.0 Oxyhemoglobin Percent 98.0 98.4 Total Hemoglobin 5.4 L 9.0 L Blood Gas Actual Respiration Rate 24 Blood Gas Low PEEP Setting 5.0 Blood Gas Respiration Rate 20.0 Blood Gas Tidal Volume 500.0 Test 05/17/16 14:25 05/17/16 20:10 05/18/16 00:28 05/18/16 05:30 Hematocrit 27.4 #L 22.8 L 22.5 L Hemoglobin 9.2 #L 7.7 L 7.7 L Anion Gap 12 Blood Urea Nitrogen 37 #H Calcium Level 8.1 L Carbon Dioxide Level 23 Chloride Level 111 H Creatinine 0.94 Glucose Level 138 Magnesium Level 1.9 Phosphorus Level 2.8 Potassium Level 3.3 L Sodium Level 143 Test 05/18/16 05:50 Hematocrit 22.0 L Hemoglobin 7.5 L Medications Medications Current Medications Ondansetron HCl (Zofran Inj) 4 mg Q6H PRN IV NAUSEA AND/OR VOMITING; Start 05/07/16 at 19:30 Morphine Sulfate (morphine) 2 mg Q4H PRN IV SEVERE PAIN LEVEL 7-10 Last administered on 05/08/16at 20:08; Admin Dose 2 MG; Start 05/07/16 at 19:30 Docusate Sodium 100 mg 100 mg Q12H PRN PO CONSTIPATION; Start 05/07/16 at 19:30 Multivitamins/ Thiamine HCl/ Folic Acid/Sodium Chloride (Mvi-12 Adult/ Vitamin B1/Folic Acid/NS) 1,011.2 ml @ 75 mls/hr DAILY@09 IVPB Last administered on at 19:41; Admin Dose 75 MLS/HR; Start 05/09/16 at 16:30 Lorazepam (Ativan) 1 mg Q2 PRN IV AGITATION/ANXIETY; Start 05/09/16 at 16:30 Furosemide (Lasix) 40 mg DAILY@06 IV Last administered on 05/17/16at 05:06; Admin Dose 40 MG; Start 05/10/16 at 14:30 Lactulose 100 ml 100 ml Q6 NM Last administered on 05/17/16at 05:07; Admin Dose 100 ML; Start 05/13/16 at 18:00 Pantoprazole 80 mg/Sodium Chloride 100 ml @ 10 mls/hr Q10H IV Last administered on 05/17/16at 23:02; Admin Dose 10 MLS/HR; Start 05/17/16 at 09:30 Octreotide Acetate/Sodium Chloride (Sandostatin/NS) 50 ml @ 2.5 mls/hr Q20H IV Last administered on 05/17/16at 13:05; Admin Dose 2.5 MLS/HR; Start 05/17/16 at 09:30 IV Flush 10 ml 10 ml PRN PRN IV IV PROTOCOL; Start 05/17/16 at 12:00 Propofol (Diprivan) 100 ml @ 1.692 mls/ hr Q12H IV Last administered on at 05:21; Admin Dose 6.768 MLS/HR; Start 05/17/16 at 13:00 Procedures Procedures PROCEDURE: XR Chest. CLINICAL INDICATION: NG tube placement TECHNIQUE: Chest AP portable. COMPARISON: 05/14/2016 FINDINGS: A nasogastric tube is in the body of the stomach. The mediastinal structures are unremarkable. There is calcification of the thoracic aorta (consistent with atherosclerosis). The heart is normal in size and configuration. The pulmonary vascularity is normal. There are low lung volumes. There is mild bibasilar subsegmental atelectasis. The pleural spaces are unremarkable. There are senescent changes of the axial skeleton. IMPRESSION: Low lung volumes. Mild bibasilar subsegmental atelectasis. RPTAT: HGDB .Parth Thomas MD, MD Date Time Electronically viewed and signed by .Parth Thomas MD, on 05/17/2016 10:14 KASH OLVERA May 18, 2016 07:15
[2016-05-18] MEDS: PANTOPRAZOLE IV 80 MG in SOD CHLORIDE 0.9% 100 ML IV SCH ×2 (07:17→15:52)
[2016-05-18] MEDS: FUROSEMIDE 40 MG INJ IV SCH (07:22)
[2016-05-18 07:25] LABS: EOSINOPHILS % 0.1 % (0.0-7.0); HEMATOCRIT 22.8 % (42.0-52.0); HEMOGLOBIN 7.8 g/dl (14.0-18.0); LYMPHOCYTES # 1.2 10^3/ul (0.8-2.9); LYMPHOCYTES % 8.3 % (15.0-51.0); MEAN CORPUSCULAR HEMOGLOBIN 30.8 pg (29.0-33.0); MEAN CORPUSCULAR HGB CONC 34.4 g/dl (32.0-37.0); MEAN CORPUSCULAR VOLUME 89.7 fl (82.0-101.0); MEAN PLATELET VOLUME 9.2 fl (7.4-10.4); MONOCYTES % 7.4 % (0.0-11.0); NEUTROPHIL # 11.9 10^3/ul (1.6-7.5); NEUTROPHILS % 84.2 % (39.0-77.0); PLATELET COUNT 164 10^3/UL (140-440); RED BLOOD COUNT 2.54 10^6/ul (4.70-6.10); UNCORRECTED WBC 14.1 10^3/ul (4.8-10.8); WHITE BLOOD COUNT 14.1 10^3/ul (4.8-10.8)
[2016-05-18] MEDS ORDERED: POTASSIUM CHLORIDE 250 ML IVPB ONE (07:30)
[2016-05-18 07:32] LABS: CONDITION 1; LH ANALYZER COMMENTS 1; SUSPECT 1
[2016-05-18] MEDS: MULTIVITAMINS 10 ML, THIAMINE 100 MG, FOLIC ACID 1 MG in SOD CHLORIDE 0.9% 1,000 ML IVPB SCH ×2 (08:44→17:18)
[2016-05-18] MEDS: OCTREOTIDE 500 MCG in SOD CHLORIDE 0.9% 49 ML IV SCH (09:58)
--- NOTE | 2016-05-18 10:29 | CONS ---
Date/Time of Note Date/Time of Note DATE: 05/18/16 TIME: 10:26 Consult Date/Type/Reason Admit Date/Time May 07, 2016 at 14:39 Initial Consult Date Type of Consultation: Pulm Subjective Intubated, sedated, hemodynamically stable. No resp distress. Objective Vital Signs Date Time Temp Pulse Resp B/P Pulse Ox O2 Delivery O2 Flow Rate FiO2 05/18/16 10:00 104 20 118/71 98 Mechanical Ventilator 05/18/16 09:25 40 05/18/16 09:00 97.2 05/17/16 11:00 15.0 Intake and Output 05/17/16 05/17/16 05/18/16 15:00 23:00 07:00 Intake Total 1177.43 ml 368.756 ml 1024.620 ml Output Total 100 ml 145 ml 325 ml Balance 1077.43 ml 223.756 ml 699.620 ml PHYSICAL EXAMINATION: GENERAL: Elderly gentleman, mostly somnolent on mechanical ventilation. VITAL SIGNS: as above NECK: Supple, no JVD or lymphadenopathy. CARDIAC: S1, S2, no added sounds or murmurs. CHEST: Diminished air entry bilaterally. ABDOMEN: Soft, nontender. No guarding or rebound. EXTREMITIES: No cyanosis, clubbing or edema. NEUROLOGIC: Generalized weakness. Results/Medications Result Diagram: 05/18/16 0550 05/18/16 0530 Results 24 hrs Laboratory Tests Test 05/17/16 10:56 05/17/16 13:06 05/17/16 14:25 05/17/16 20:10 Arterial Blood HCO3 15.7 L 17.4 L Arterial Blood Base Excess -8.2 L -7.0 L Arterial Blood Oxygen Saturation 99.2 H 98.9 H Tejinder Test N/A ACCEPTAB Arterial Blood Gas Puncture Site Right Brachial Right Radial Arterial Blood Carboxyhemoglobin 1.0 0.3 Arterial Blood Date Drawn 05/17/2016 10:50:50 AM 05/17/2016 1:05:22 PM Arterial Blood Methemoglobin 0.2 0.2 Arterial Blood pCO2 (Temp correct) 25.1 L 30.9 L Arterial Blood pH (Temp corrected) 7.415 7.369 Arterial Blood pO2 (Temp corrected) 188.9 H 183.9 H Blood Gas A-a O2 Differential 499.0 H 498.2 H Blood Gas Modality MASK - NRB VENT - AC Blood Gas Notified Time 05/17/2016 11:01:38 AM 05/17/2016 1:16:58 PM Blood Gas Notified Whom AUBREY BURGOS Blood Gas Specimen Source Blood arterial Blood arterial Blood Gas Temperature 37.0 37.0 FiO2 100.0 100.0 Oxyhemoglobin Percent 98.0 98.4 Total Hemoglobin 5.4 L 9.0 L Blood Gas Actual Respiration Rate 24 Blood Gas Low PEEP Setting 5.0 Blood Gas Respiration Rate 20.0 Blood Gas Tidal Volume 500.0 Hematocrit 27.4 #L 22.8 L Hemoglobin 9.2 #L 7.7 L Test 05/18/16 00:28 05/18/16 05:30 05/18/16 05:50 Hematocrit 22.5 L 22.8 L 22.0 L Hemoglobin 7.7 L 7.8 L 7.5 L Anion Gap 12 Basophils # Pending Basophils % Pending Blood Morphology Comment Blood Urea Nitrogen 37 #H Calcium Level 8.1 L Carbon Dioxide Level 23 Chloride Level 111 H Creatinine 0.94 Eosinophils # Pending Eosinophils % Pending Glucose Level 138 Lymphocytes # Pending Lymphocytes % Pending Magnesium Level 1.9 Mean Corpuscular Hemoglobin 30.8 Mean Corpuscular Hemoglobin Concent 34.4 Mean Corpuscular Volume 89.7 Mean Platelet Volume 9.2 Monocytes # Pending Monocytes % Pending Neutrophils # Pending Neutrophils % Pending Nucleated Red Blood Cells # Pending Nucleated Red Blood Cells % Pending Phosphorus Level 2.8 Platelet Count 164 # Potassium Level 3.3 L Red Blood Count 2.54 #L Red Cell Distribution Width 18.0 H Sodium Level 143 White Blood Count 14.1 H Medications Current Medications Ondansetron HCl (Zofran Inj) 4 mg Q6H PRN IV NAUSEA AND/OR VOMITING; Start 05/07/16 at 19:30 Morphine Sulfate (morphine) 2 mg Q4H PRN IV SEVERE PAIN LEVEL 7-10 Last administered on 05/08/16at 20:08; Admin Dose 2 MG; Start 05/07/16 at 19:30 Docusate Sodium 100 mg 100 mg Q12H PRN PO CONSTIPATION; Start 05/07/16 at 19:30 Multivitamins/ Thiamine HCl/ Folic Acid/Sodium Chloride (Mvi-12 Adult/ Vitamin B1/Folic Acid/NS) 1,011.2 ml @ 75 mls/hr DAILY@09 IVPB Last administered on at 19:41; Admin Dose 75 MLS/HR; Start 05/09/16 at 16:30 Lorazepam (Ativan) 1 mg Q2 PRN IV AGITATION/ANXIETY; Start 05/09/16 at 16:30 Furosemide (Lasix) 40 mg DAILY@06 IV Last administered on 05/18/16at 07:22; Admin Dose 40 MG; Start 05/10/16 at 14:30 Lactulose 100 ml 100 ml Q6 AR Last administered on 05/17/16at 05:07; Admin Dose 100 ML; Start 05/13/16 at 18:00 Pantoprazole 80 mg/Sodium Chloride 100 ml @ 10 mls/hr Q10H IV Last administered on 05/18/16at 07:17; Admin Dose 10 MLS/HR; Start 05/17/16 at 09:30 Octreotide Acetate/Sodium Chloride (Sandostatin/NS) 50 ml @ 2.5 mls/hr Q20H IV Last administered on 05/18/16at 09:58; Admin Dose 2.5 MLS/HR; Start 05/17/16 at 09:30 IV Flush 10 ml 10 ml PRN PRN IV IV PROTOCOL; Start 05/17/16 at 12:00 Propofol 100 ml @ 1.692 mls/ hr Q12H IV Last administered on 05/18/16at 05:21 ; Admin Dose 6.768 MLS/HR; Start 05/17/16 at 13:00 Potassium Chloride (KCl 40 MEQ/250 ML NS) 250 ml @ 62.5 mls/hr ONCE ONCE IVPB Last administered on 05/18/16at 08:40; Admin Dose 62.5 MLS/HR; Start at 07:30; Stop 05/18/16 at 11:29 Assessment/Plan Chief Complaint/Hosp Course IMPRESSION AND PLAN: 1. Acute gastrointestinal bleed. 2. Severe anemia. 3. Hypertensive shock. 4. History of ETOH abuse with esophageal varices and portal hypertension. 5. Resp failure secondary to encephalopathy. Plan 1. Vent support 2. s/p Emergent endoscopy per GI. Continue recs 3. Transfusion of packed red blood cells keep Hb > 8 4. Correction of coagulopathy. 5. DVT and GI prophylaxis. Prognosis guarded. Problems: JAMILA TRAVIS MD, [facility] May 18, 2016 10:29
--- NOTE | 2016-05-18 10:32 | GILP ---
DATE OF PROCEDURE: 05/17/2016 PROCEDURE: Esophagogastroduodenoscopy with endoscopic variceal ligation x3. BRIEF HISTORY AND INDICATIONS: The patient is with alcoholic cirrhosis, status post endoscopy with banding for gastrointestinal bleeding on 05/09/2016. At that time variceal ligation x4 was applied. The patient experienced evidence of significant upper gastrointestinal bleeding with hematemesis, br ight red blood per rectum, a significant drop in hemoglobin and hematocrit, as well as hypotension a nd tachycardia. The patient has been resuscitated with blood transfusions and IV fluids. He is now in the ICU. He was also intubated, as he appeared to be in respiratory distress. He is receiving pressors. At this point an emergency endoscopy will be undertaken. No consent is available and fro m the patient or relatives. Giving the life threatening nature of his condition, endoscopy will be undertaken at this time. PREMEDICATION: Monitored anesthesia care by the anesthesiologist. SURGEON: Mariana Ochoa MD. INSTRUMENT USED: Olympus panendoscope. TECHNIQUE: After informed consent, with the patient/relatives understanding the procedure, its indic ations, potential risks and complications, including but not limited to: allergic reaction, bleeding , perforation or infection, and after all pertinent questions were answered to the patients satisfac tion, the patient/relatives signed witnessed informed consent. Following this, premedication was administered slowly IV push under careful cardiovascular and respi ratory monitoring with pulse oximetry, automatic blood pressure and school lunch monitor. Once the sedative effect was achieved the patient was place in the left lateral decubitus, the panen doscope was introduced and advanced under visual control. FINDINGS: Careful examination of the upper gastrointestinal tract, both on insertion as well as withdrawal of the instrument disclosed the following findings: ESOPHAGUS: The distal esophagus shows areas of ulceration at the sites of previous banding. There are still underlying esophageal varices, one such varix shows what appears to be evidence of recent bleeding, with a "white plug". STOMACH: Upon entrance to the stomach, air was insufflated. The gastric thompson distended normally. There is a moderate amount of old blood in the proximal stomach that could not be suctioned out. T he remainder of the gastric mucosa appears unremarkable, with no bleeding site identified. PYLORUS: The pylorus is patent and within normal limits. DUODENUM: Unremarkable duodenal bulb and second portion of the duodenum. The instrument was withdrawn. No additional abnormalities were noted. The decision was made to pur bernard further banding. The banding device was attached to the tip of the endoscope. The endoscope wa s then reintroduced and 3 bands were applied to the most prominent variceal channels, as well as par ticularly the one that appeared to have a white plug. No residual bleeding or evidence of complicat ion was present. IMPRESSION: Multiple esophageal ulcers, with no evidence of bleeding. Residual esophageal varices, one of the varices with stigmata of recent bleeding. Post-endoscopic variceal ligation x3. No add itional potential sources of bleeding identified. PLAN: Will continue on PPI and octreotide drips. Monitor H and H and transfuse to keep hemoglobin above 7.5. Further recommendations will depend on the patient's clinical course. His prognosis ana ins poor. Thank you very much. Dictated By: MARIANA OCHOA MS/STEVE Conf#: [id number] DID#: [id number]
[2016-05-18 10:49] LABS: ANISOCYTOSIS 2+; POIKILOCYTOSIS 2+; POLYCHROMASIA 1+
[2016-05-18 10:50] LABS: BURR CELLS FEW
[2016-05-18 10:51] LABS: HYPOCHROMASIA 1+
--- NOTE | 2016-05-18 11:24 | PN ---
Date/Time of Note Date/Time of Note DATE: 05/18/16 TIME: 11:19 Assessment/Plan VTE Prophylaxis VTE Prophylaxis Intervention: contraindicated Lines/Catheters IV Catheter Type (from Nrsg): PICC Line Central line still needed: Yes Urinary Cath still in place: Yes Reason Cath still needed: terminal illness/intractable pain Assessment/Plan Assessment/Plan Assessment: Hematemesis/GI bleeding 05/17/2016 EGD Multiple esophageal ulcers, with no evidence of bleeding. Residual esophageal varices, one of the varices with stigmata of recent bleeding. Post- endoscopic variceal ligation x3. No additional potential sources of bleeding identified. 05/09/2016 EGD: Grade IV/IV esophageal varices with stigmata of recent bleeding "white plug."Post-endoscopic variceal ligation x4. Alcoholic cirrhosis Portal hypertension/esophageal varices with bleeding post EVL Ascites Encephalopathy History of EtOH abuse Plan: Protonix and octreotide continuous drip Monitor H&H every 6 hours, transfuse 2 units for Hgb <7.5 Poor prognosis Further recommendations depend on clinical course Subjective 24 Hr Interval Summary Free Text/Dictation EMR reviewed, patient's course reviewed with nursing staff Remains intubated, on pressors No evidence of overt gastrointestinal bleeding i.e. no bowel movements Required 1 unit of packed red blood cells for hemoglobin under 7.5 on Protonix and octreotide drips Exam/Review of Systems Vital Signs Vitals Vital Signs Date Time Temp Pulse Resp B/P Pulse Ox O2 Delivery O2 Flow Rate FiO2 05/18/16 10:00 104 20 118/71 98 Mechanical Ventilator 05/18/16 09:25 40 05/18/16 09:00 97.2 05/17/16 11:00 15.0 Intake and Output 05/17/16 05/17/16 05/18/16 15:00 23:00 07:00 Intake Total 1177.43 ml 368.756 ml 1024.620 ml Output Total 100 ml 145 ml 325 ml Balance 1077.43 ml 223.756 ml 699.620 ml Exam Constitutional: non-verbal Head: normocephalic Neck: supple Respiratory: clear to auscultation, diminished breath sounds Cardiovascular: regular rate and rhythm Gastrointestinal: ascites, bowel sounds, distended, soft, No firm, No mass Musculoskeletal: nl extremities to inspection Results Result Diagram: 05/18/16 0550 05/18/16 0530 Results 24 hrs Laboratory Tests Test 05/17/16 13:06 05/17/16 14:25 05/17/16 20:10 05/18/16 00:28 Arterial Blood HCO3 17.4 L Arterial Blood Base Excess -7.0 L Arterial Blood Oxygen Saturation 98.9 H Tejinder Test ACCEPTAB Arterial Blood Gas Puncture Site Right Radial Arterial Blood Carboxyhemoglobin 0.3 Arterial Blood Date Drawn 05/17/2016 1:05:22 PM Arterial Blood Methemoglobin 0.2 Arterial Blood pCO2 (Temp correct) 30.9 L Arterial Blood pH (Temp corrected) 7.369 Arterial Blood pO2 (Temp corrected) 183.9 H Blood Gas A-a O2 Differential 498.2 H Blood Gas Actual Respiration Rate 24 Blood Gas Low PEEP Setting 5.0 Blood Gas Modality VENT - AC Blood Gas Notified Time 05/17/2016 1:16:58 PM Blood Gas Notified Whom JLD Blood Gas Respiration Rate 20.0 Blood Gas Specimen Source Blood arterial Blood Gas Temperature 37.0 Blood Gas Tidal Volume 500.0 FiO2 100.0 Oxyhemoglobin Percent 98.4 Total Hemoglobin 9.0 L Hematocrit 27.4 #L 22.8 L 22.5 L Hemoglobin 9.2 #L 7.7 L 7.7 L Test 05/18/16 05:30 05/18/16 05:50 Anion Gap 12 Anisocytosis 2+ Basophils # 0.0 Basophils % 0.0 Blood Morphology Comment Blood Urea Nitrogen 37 #H Calcium Level 8.1 L Carbon Dioxide Level 23 Chloride Level 111 H Creatinine 0.94 Eosinophils # 0.0 Eosinophils % 0.1 Glucose Level 138 Hematocrit 22.8 L 22.0 L Hemoglobin 7.8 L 7.5 L Hypochromasia 1+ Lymphocytes # 1.2 Lymphocytes % 8.3 L Magnesium Level 1.9 Mean Corpuscular Hemoglobin 30.8 Mean Corpuscular Hemoglobin Concent 34.4 Mean Corpuscular Volume 89.7 Mean Platelet Volume 9.2 Monocytes # 1.0 H Monocytes % 7.4 Neutrophils # 11.9 H Neutrophils % 84.2 H Nucleated Red Blood Cells # 0.0 Nucleated Red Blood Cells % 0.0 Phosphorus Level 2.8 Platelet Count 164 # Polychromasia 1+ Potassium Level 3.3 L Red Blood Count 2.54 #L Red Cell Distribution Width 18.0 H Sodium Level 143 White Blood Count 14.1 H Medications Medications Current Medications Ondansetron HCl (Zofran Inj) 4 mg Q6H PRN IV NAUSEA AND/OR VOMITING; Start 05/07/16 at 19:30 Morphine Sulfate (morphine) 2 mg Q4H PRN IV SEVERE PAIN LEVEL 7-10 Last administered on 05/08/16at 20:08; Admin Dose 2 MG; Start 05/07/16 at 19:30 Docusate Sodium 100 mg 100 mg Q12H PRN PO CONSTIPATION; Start 05/07/16 at 19:30 Multivitamins/ Thiamine HCl/ Folic Acid/Sodium Chloride (Mvi-12 Adult/ Vitamin B1/Folic Acid/NS) 1,011.2 ml @ 75 mls/hr DAILY@09 IVPB Last administered on at 19:41; Admin Dose 75 MLS/HR; Start 05/09/16 at 16:30 Lorazepam (Ativan) 1 mg Q2 PRN IV AGITATION/ANXIETY; Start 05/09/16 at 16:30 Furosemide (Lasix) 40 mg DAILY@06 IV Last administered on 05/18/16at 07:22; Admin Dose 40 MG; Start 05/10/16 at 14:30 Lactulose 100 ml 100 ml Q6 GA Last administered on 05/17/16at 05:07; Admin Dose 100 ML; Start 05/13/16 at 18:00 Pantoprazole 80 mg/Sodium Chloride 100 ml @ 10 mls/hr Q10H IV Last administered on 05/18/16at 07:17; Admin Dose 10 MLS/HR; Start 05/17/16 at 09:30 Octreotide Acetate/Sodium Chloride (Sandostatin/NS) 50 ml @ 2.5 mls/hr Q20H IV Last administered on 05/18/16at 09:58; Admin Dose 2.5 MLS/HR; Start 05/17/16 at 09:30 IV Flush 10 ml 10 ml PRN PRN IV IV PROTOCOL; Start 05/17/16 at 12:00 Propofol 100 ml @ 1.692 mls/ hr Q12H IV Last administered on 05/18/16at 05:21 ; Admin Dose 6.768 MLS/HR; Start 05/17/16 at 13:00 Potassium Chloride (KCl 40 MEQ/250 ML NS) 250 ml @ 62.5 mls/hr ONCE ONCE IVPB Last administered on 05/18/16at 08:40; Admin Dose 62.5 MLS/HR; Start at 07:30; Stop 05/18/16 at 11:29 MAIA ROSA MD May 18, 2016 11:24
[2016-05-18 12:40] LABS: HEMATOCRIT 24.8 % (42.0-52.0); HEMOGLOBIN 8.3 g/dl (14.0-18.0)
[2016-05-18] MEDS: IPRATROPIUM (HFA) 12.9 GM INHALER INH SCH ×2 (14:00→19:56)
[2016-05-18 18:37] LABS: HEMATOCRIT 27.5 % (42.0-52.0); HEMOGLOBIN 9.1 g/dl (14.0-18.0)
[2016-05-18] MEDS: ALBUTEROL HFA 8 GM INHALER INH SCH (19:56)
[2016-05-19] VITALS (37 sets, daily range): BP systolic 97–140; BP diastolic 63–86; PULSE 87–107; RESP 20–21
[2016-05-19] MEDS: PROPOFOL 100 ML IV SCH ×2 (00:23→12:35)
[2016-05-19] MEDS: IPRATROPIUM (HFA) 12.9 GM INHALER INH SCH ×4 (01:06→20:33)
[2016-05-19] MEDS: ALBUTEROL HFA 8 GM INHALER INH SCH ×4 (01:06→20:33)
[2016-05-19 01:44] LABS: HEMATOCRIT 26.3 % (42.0-52.0); HEMOGLOBIN 8.8 g/dl (14.0-18.0)
[2016-05-19] MEDS: OCTREOTIDE 500 MCG in SOD CHLORIDE 0.9% 49 ML IV SCH ×2 (03:06→03:08)
[2016-05-19] MEDS: PANTOPRAZOLE IV 80 MG in SOD CHLORIDE 0.9% 100 ML IV SCH (03:06)
[2016-05-19] MEDS: LACTULOSE ENEMA 1,000 ML BTL PR SCH ×5 (05:03→23:50)
[2016-05-19] MEDS: FUROSEMIDE 40 MG INJ IV SCH (05:07)
[2016-05-19 05:08] LABS: HEMATOCRIT 27.6 % (42.0-52.0); HEMOGLOBIN 9.2 g/dl (14.0-18.0); MEAN CORPUSCULAR HEMOGLOBIN 29.5 pg (29.0-33.0); MEAN CORPUSCULAR HGB CONC 33.2 g/dl (32.0-37.0); MEAN PLATELET VOLUME 8.7 fl (7.4-10.4); PLATELET COUNT 157 10^3/UL (140-440); UNCORRECTED WBC 14.7 10^3/ul (4.8-10.8); WHITE BLOOD COUNT 14.7 10^3/ul (4.8-10.8)
[2016-05-19 05:11] LABS: CONDITION 1; LH ANALYZER COMMENTS 1
[2016-05-19 05:12] LABS: ALBUMIN 2.3 g/dl (3.3-4.9)
[2016-05-19 05:13] LABS: POTASSIUM 3.3 mmol/L (3.5-5.1)
[2016-05-19 05:15] LABS: ALBUMIN/GLOBULIN RATIO 0.54; BILIRUBIN,INDIRECT 1.2 mg/dl (0-1.1); BILIRUBIN,TOTAL 1.2 mg/dl (0.2-1.3); CREATININE 0.78 mg/dl (0.61-1.24); TOTAL PROTEIN 6.5 g/dl (6.1-8.1)
[2016-05-19 05:16] LABS: CALCIUM 8.3 mg/dl (8.4-10.2)
[2016-05-19] MEDS: MULTIVITAMINS 10 ML, THIAMINE 100 MG, FOLIC ACID 1 MG in SOD CHLORIDE 0.9% 1,000 ML IVPB SCH ×2 (07:09→09:00)
--- NOTE | 2016-05-19 09:11 | PN ---
Date/Time of Note Date/Time of Note DATE: 05/19/16 TIME: 09:01 Assessment/Plan VTE Prophylaxis VTE Prophylaxis Intervention: SCD's VTE Contraindication Reason: bleeding Lines/Catheters IV Catheter Type (from Nrsg): PICC Line Central line still needed: Yes Urinary Cath still in place: Yes Reason Cath still needed: other (indicate) Assessment/Plan Assessment/Plan 1. Respiratory failure on full vent support patient intubated for airway protection during acute GI bleed /commence ventilator weaning/ appreciate pulm input 2. Upper gastrointestinal bleed secondary to esophageal varices GI consult much appreciated, s/p EGD x2 done and patient has multiple esophageal varices and ulcers status post ligation / H an H is still low but stable /Remains on octreotide and Protonix drips 3. Encephalopathy / Lethargy: Encephalopathic without sedation / now sedated for Vent support Patient started on rectal lactulose / librium D/c / ammonia levels normal x 2 days / EEG shows Encephalopathy CT shows no acute abnormalities 4. Acute on chronic anemia 2/2 Blood loss transfuse PRN / also give platelets/ FFP/ Vit K PRN 5. 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 Homelessness CM working on placement 7. Leucocytosis + bandemia blood cultures and urine cultures still pending/ no overt evidence of severe infection /hematology consult CXR showing airspace disease/ ?pneumonia-?begin abx.. 8. Prophylaxis: Sequential compression devices/ IV PPI Dispo: Ventilator weaning ICU supportive care Transfusion PRN Further evaluation and treatment will be based on clinical course Full discussion with care team done. All questions Answered Please also see orders. Total time spent on this evaluation >35mins Subjective 24 Hr Interval Summary Free Text/Dictation Patient seen and examined. Nursing reports no acute overnight events. remains intubated and sedated on propofol Subjective hx not possible: pt critical status Exam/Review of Systems Vital Signs Vitals Vital Signs Date Time Temp Pulse Resp B/P Pulse Ox O2 Delivery O2 Flow Rate FiO2 05/19/16 08:00 99 20 110/72 94 Mechanical Ventilator 05/19/16 07:00 97.4 05/19/16 04:55 30 05/17/16 11:00 15.0 Intake and Output 05/18/16 05/18/16 05/19/16 15:00 23:00 07:00 Intake Total 325.0 ml 537.5 ml 700.0 ml Output Total 820 ml 260 ml 625 ml Balance -495.0 ml 277.5 ml 75.0 ml Exam Constitutional: other (comfortable on vent), No alert Eyes: icteric ENMT: intubated Respiratory: diminished breath sounds Cardiovascular: regular rate and rhythm, No murmurs/extra sounds Gastrointestinal: bowel sounds, distended, soft Extremities: edema Neurological: No nl mental status, No nl speech, No nl strength Results Result Diagram: 05/19/16 04005/19/16 0400 Results 24 hrs Laboratory Tests Test 05/18/16 12:16 05/18/16 18:05 05/19/16 01:30 05/19/16 04:00 Hematocrit 24.8 L 27.5 L 26.3 L 27.6 L Hemoglobin 8.3 L 9.1 L 8.8 L 9.2 L Alanine Aminotransferase (ALT/SGPT) 48 Albumin 2.3 L Albumin/Globulin Ratio 0.54 Alkaline Phosphatase 139 H Anion Gap 11 Aspartate Amino Transf (AST/SGOT) 72 H Blood Morphology Comment Blood Urea Nitrogen 33 H Calcium Level 8.3 L Carbon Dioxide Level 25 Chloride Level 116 H Creatinine 0.78 Direct Bilirubin 0.00 Globulin 4.20 H Glucose Level 121 Indirect Bilirubin 1.2 H Magnesium Level 2.0 Mean Corpuscular Hemoglobin 29.5 Mean Corpuscular Hemoglobin Concent 33.2 Mean Corpuscular Volume 89.0 Mean Platelet Volume 8.7 Platelet Count 157 Potassium Level 3.3 L Red Blood Count 3.10 #L Red Cell Distribution Width 17.0 H Sodium Level 149 H Total Bilirubin 1.2 Total Protein 6.5 White Blood Count 14.7 H Medications Medications Current Medications Ondansetron HCl (Zofran Inj) 4 mg Q6H PRN IV NAUSEA AND/OR VOMITING; Start 05/07/16 at 19:30 Morphine Sulfate (morphine) 2 mg Q4H PRN IV SEVERE PAIN LEVEL 7-10 Last administered on 05/08/16at 20:08; Admin Dose 2 MG; Start 05/07/16 at 19:30 Docusate Sodium 100 mg 100 mg Q12H PRN PO CONSTIPATION; Start 05/07/16 at 19:30 Multivitamins/ Thiamine HCl/ Folic Acid/Sodium Chloride (Mvi-12 Adult/ Vitamin B1/Folic Acid/NS) 1,011.2 ml @ 75 mls/hr DAILY@09 IVPB Last administered on at 07:09; Admin Dose 75 MLS/HR; Start 05/09/16 at 16:30 Lorazepam (Ativan) 1 mg Q2 PRN IV AGITATION/ANXIETY; Start 05/09/16 at 16:30 Furosemide (Lasix) 40 mg DAILY@06 IV Last administered on 05/19/16at 05:07; Admin Dose 40 MG; Start 05/10/16 at 14:30 Lactulose 100 ml 100 ml Q6 DC Last administered on 05/17/16at 05:07; Admin Dose 100 ML; Start 05/13/16 at 18:00 Pantoprazole 80 mg/Sodium Chloride 100 ml @ 10 mls/hr Q10H IV Last administered on 05/19/16at 03:06; Admin Dose 10 MLS/HR; Start 05/17/16 at 09:30 Octreotide Acetate/Sodium Chloride (Sandostatin/NS) 50 ml @ 2.5 mls/hr Q20H IV Last administered on 05/19/16at 03:06; Admin Dose 2.5 MLS/HR; Start 05/17/16 at 09:30 IV Flush 10 ml 10 ml PRN PRN IV IV PROTOCOL; Start 05/17/16 at 12:00 Propofol (Diprivan) 100 ml @ 1.692 mls/ hr Q12H IV Last administered on at 05:21; Admin Dose 6.768 MLS/HR; Start 05/17/16 at 13:00 Procedures Procedures ROCEDURE: XR Chest. CLINICAL INDICATION: Pneumonia/CHF TECHNIQUE: Single frontal chest x-ray. COMPARISON: 05/17/2016 FINDINGS: The endotracheal tube lies 1.4 cm above the erasto. A left upper extremity PICC and nasogastric tube remain in stable and radiographically appropriate position. Lung volumes are decreased there is mild basilar atelectasis. There is increased opacification left lung base representing air space disease versus atelectasis. Small left pleural effusion may also be present. IMPRESSION: 1. Supporting tubes and lines in satisfactory position without evidence of pneumothorax. 2. Increased left lower lobe airspace disease verses atelectasis and probable small pleural effusion. RPTAT: EE .Will Larson MD, Date Time Electronically viewed and signed by .Will Larson MD, on 05/19/2016 10:28 KASH OLVERA May 19, 2016 09:11
[2016-05-19] MEDS: POTASSIUM CHLORIDE 250 ML IVPB SCH ×2 (09:35→12:54)
--- NOTE | 2016-05-19 10:29 | RADRPT ---
PROCEDURE: XR Chest. CLINICAL INDICATION: Pneumonia/CHF TECHNIQUE: Single frontal chest x-ray. COMPARISON: 05/17/2016 FINDINGS: The endotracheal tube lies 1.4 cm above the erasto. A left upper extremity PICC and nasogastric tube remain in stable and radiographically appropriate position. Lung volumes are decreased there is mil d basilar atelectasis. There is increased opacification left lung base representing air space diseas e versus atelectasis. Small left pleural effusion may also be present. IMPRESSION: 1. Supporting tubes and lines in satisfactory position without evidence of pneumothorax. 2. Increased left lower lobe airspace disease verses atelectasis and probable small pleural effusion . RPTAT: EE .Will Larson MD, MD Date Time Electronically viewed and signed by .Will Larson MD, MD on 05/19/2016 10:28 .d/
[2016-05-19 10:48] LABS: ANISOCYTOSIS 1+; LYMPHOCYTES # 1.3 10^3/ul (0.8-2.9); MONOCYTE # 1.9 10^3/ul (0.3-0.9)
[2016-05-19] MEDS: OCTREOTIDE 500 MCG in DEXTROSE 5% 49 ML IV SCH ×2 (11:14→23:42)
[2016-05-19] MEDS: THIAMINE IVPB SCH (11:15)
[2016-05-19] MEDS: PANTOPRAZOLE IV 80 MG in DEXTROSE 5% 100 ML IV SCH ×2 (11:15→21:28)
[2016-05-19] MEDS: MULTIVITAMINS IVPB SCH (11:15)
[2016-05-19] MEDS: DEXTROSE 5% IVPB SCH (11:15)
[2016-05-19] MEDS: FOLIC ACID IVPB SCH (11:15)
[2016-05-19 12:24] LABS: HEMATOCRIT 25.1 % (42.0-52.0); HEMOGLOBIN 8.5 g/dl (14.0-18.0)
--- NOTE | 2016-05-19 12:55 | PN ---
Date/Time of Note Date/Time of Note DATE: 05/19/16 TIME: 12:55 Assessment/Plan VTE Prophylaxis VTE Prophylaxis Intervention: contraindicated Lines/Catheters IV Catheter Type (from Nrs): PICC Line Central line still needed: Yes Urinary Cath still in place: Yes Reason Cath still needed: urinary retention Assessment/Plan Assessment/Plan Assessment: Hematemesis/GI bleeding 05/17/2016 EGD Multiple esophageal ulcers, with no evidence of bleeding. Residual esophageal varices, one of the varices with stigmata of recent bleeding. Post- endoscopic variceal ligation x3. No additional potential sources of bleeding identified. 05/09/2016 EGD: Grade IV/IV esophageal varices with stigmata of recent bleeding "white plug."Post-endoscopic variceal ligation x4. Alcoholic cirrhosis Portal hypertension/esophageal varices with bleeding post EVL Ascites Encephalopathy History of EtOH abuse Plan: Protonix and octreotide continuous drip Monitor H&H every 6 hours, transfuse 2 units for Hgb <7.5 Poor prognosis Further recommendations depend on clinical course Subjective 24 Hr Interval Summary Free Text/Dictation EMR reviewed, patient's course reviewed with nursing staff Remains intubated, on pressors No evidence of overt gastrointestinal bleeding i.e. no bowel movements Hgb stable, no further transfusion requirements on Protonix and octreotide drips Exam/Review of Systems Vital Signs Vitals Vital Signs Date Time Temp Pulse Resp B/P Pulse Ox O2 Delivery O2 Flow Rate FiO2 05/19/16 12:00 94 20 98/63 94 Mechanical Ventilator 05/19/16 07:00 97.4 05/19/16 04:55 30 05/17/16 11:00 15.0 Intake and Output 05/18/16 05/18/16 05/19/16 15:00 23:00 07:00 Intake Total 325.0 ml 537.5 ml 700.0 ml Output Total 820 ml 260 ml 625 ml Balance -495.0 ml 277.5 ml 75.0 ml Exam Constitutional: non-verbal Head: normocephalic Neck: supple Respiratory: clear to auscultation, diminished breath sounds Cardiovascular: regular rate and rhythm Gastrointestinal: ascites, bowel sounds, distended, soft, No firm, No mass Musculoskeletal: nl extremities to inspection Results Result Diagram: 05/19/16 1157 05/19/16 0400 Results 24 hrs Laboratory Tests Test 05/18/16 18:05 05/19/16 01:30 05/19/16 04:00 05/19/16 11:57 Hematocrit 27.5 L 26.3 L 27.6 L 25.1 L Hemoglobin 9.1 L 8.8 L 9.2 L 8.5 L Alanine Aminotransferase (ALT/SGPT) 48 Albumin 2.3 L Albumin/Globulin Ratio 0.54 Alkaline Phosphatase 139 H Anion Gap 11 Anisocytosis 1+ Aspartate Amino Transf (AST/SGOT) 72 H Band Neutrophils % 10.0 H Blood Morphology Comment Blood Urea Nitrogen 33 H Calcium Level 8.3 L Carbon Dioxide Level 25 Chloride Level 116 H Creatinine 0.78 Differential Comment MANUAL DIFF Direct Bilirubin 0.00 Globulin 4.20 H Glucose Level 121 Indirect Bilirubin 1.2 H Lymphocytes # 1.3 Lymphocytes % 9.0 L Magnesium Level 2.0 Mean Corpuscular Hemoglobin 29.5 Mean Corpuscular Hemoglobin Concent 33.2 Mean Corpuscular Volume 89.0 Mean Platelet Volume 8.7 Monocytes # 1.9 H Monocytes % 13.0 H Neutrophils # 10.0 H Neutrophils % 68.0 Platelet Count 157 Potassium Level 3.3 L Red Blood Count 3.10 #L Red Cell Distribution Width 17.0 H Sodium Level 149 H Total Bilirubin 1.2 Total Protein 6.5 White Blood Count 14.7 H Medications Medications Current Medications Ondansetron HCl (Zofran Inj) 4 mg Q6H PRN IV NAUSEA AND/OR VOMITING; Start 05/07/16 at 19:30 Morphine Sulfate (morphine) 2 mg Q4H PRN IV SEVERE PAIN LEVEL 7-10 Last administered on 05/08/16at 20:08; Admin Dose 2 MG; Start 05/07/16 at 19:30 Docusate Sodium (Colace) 100 mg Q12H PRN PO CONSTIPATION; Start 05/07/16 at 19: 30 Lorazepam (Ativan) 1 mg Q2 PRN IV AGITATION/ANXIETY; Start 05/09/16 at 16:30 Furosemide (Lasix) 40 mg DAILY@06 IV Last administered on 05/19/16at 05:07; Admin Dose 40 MG; Start 05/10/16 at 14:30 Lactulose (Lactulose Enema) 100 ml Q6 OK Last administered on 05/17/16at 05:07 ; Admin Dose 100 ML; Start 05/13/16 at 18:00 IV Flush 10 ml 10 ml PRN PRN IV IV PROTOCOL; Start 05/17/16 at 12:00 Propofol 100 ml @ 1.692 mls/ hr Q12H IV Last administered on 05/18/16at 05:21 ; Admin Dose 6.768 MLS/HR; Start 05/17/16 at 13:00 Potassium Chloride 250 ml @ 62.5 mls/hr Q4H IVPB Last administered on at 12:54; Admin Dose 62.5 MLS/HR; Start 05/19/16 at 09:30; Stop 05/19/16 at 17:29 Multivitamins 10 ml/Thiamine HCl 100 mg/Folic Acid 1 mg/Dextrose 1,011.2 ml @ 75 mls/hr DAILY@09 IVPB Last administered on 05/19/16at 11:15; Admin Dose 75 MLS/HR; Start 05/19/16 at 12:00 Octreotide Acetate 500 mcg/ Dextrose 50 ml @ 2.5 mls/hr Q20H IV Last administered on 05/19/16at 11:14; Admin Dose 2.5 MLS/HR; Start 05/19/16 at 12: 00 Pantoprazole/ Dextrose (Protonix Iv/D5W) 100 ml @ 10 mls/hr Q10H IV Last administered on 05/19/16at 11:15; Admin Dose 10 MLS/HR; Start 05/19/16 at 12:00 MAIA ROSA MD May 19, 2016 12:55
[2016-05-19 18:48] LABS: HEMATOCRIT 27.4 % (42.0-52.0)
[2016-05-20] VITALS (36 sets, daily range): BP systolic 91–162; BP diastolic 64–97; PULSE 81–103; RESP 15–24
[2016-05-20] MEDS: PROPOFOL 100 ML IV SCH ×2 (01:00→13:00)
[2016-05-20] MEDS: IPRATROPIUM (HFA) 12.9 GM INHALER INH SCH ×4 (02:55→19:38)
[2016-05-20] MEDS: ALBUTEROL HFA 8 GM INHALER INH SCH ×4 (02:55→19:37)
[2016-05-20] MEDS: LACTULOSE ENEMA 1,000 ML BTL PR SCH ×3 (05:09→17:29)
[2016-05-20 05:13] LABS: HEMATOCRIT 28.3 % (42.0-52.0); HEMOGLOBIN 9.4 g/dl (14.0-18.0); MEAN CORPUSCULAR HEMOGLOBIN 29.9 pg (29.0-33.0); MEAN CORPUSCULAR HGB CONC 33.3 g/dl (32.0-37.0); MEAN CORPUSCULAR VOLUME 89.8 fl (82.0-101.0); MEAN PLATELET VOLUME 9.7 fl (7.4-10.4); PLATELET COUNT 116 10^3/UL (140-440); RED BLOOD COUNT 3.15 10^6/ul (4.70-6.10); RED CELL DISTRIBUTION WIDTH 17.8 % (11.5-14.5); UNCORRECTED WBC 15.3 10^3/ul (4.8-10.8); WHITE BLOOD COUNT 15.3 10^3/ul (4.8-10.8)
[2016-05-20 05:20] LABS: ALBUMIN 2.3 g/dl (3.3-4.9); POTASSIUM 3.5 mmol/L (3.5-5.1)
[2016-05-20 05:22] LABS: BILIRUBIN,INDIRECT 1.3 mg/dl (0-1.1); BILIRUBIN,TOTAL 1.3 mg/dl (0.2-1.3); CREATININE 0.68 mg/dl (0.61-1.24)
[2016-05-20 05:23] LABS: ALBUMIN/GLOBULIN RATIO 0.51; CALCIUM 8.3 mg/dl (8.4-10.2); TOTAL PROTEIN 6.8 g/dl (6.1-8.1)
[2016-05-20 05:24] LABS: CONDITION 1; SUSPECT 1
[2016-05-20] MEDS: FUROSEMIDE 40 MG INJ IV SCH (05:45)
--- NOTE | 2016-05-20 08:00 | RADRPT ---
PROCEDURE: XR Chest. CLINICAL INDICATION: Shortness of breath. TECHNIQUE: Single frontal view. COMPARISON: 05/19/2016. FINDINGS: The endotracheal tube and left arm PICC line are in satisfactory position. There is mild atelectasi s at the lung bases with left worse than right. The heart size is normal. There is no right pleural effusion. There is a probable small left pleural effusion. There is no pneumothorax. IMPRESSION: 1. Endotracheal tube and left arm PICC line. 2. Atelectasis at the lung bases with left worse than right. 3. Probable small left pleural effusion. RPTAT: QQ .Omar Moreira MD, MD Date Time Electronically viewed and signed by .Omar Moreira MD, MD on 05/20/2016 07:59 .R/
[2016-05-20] MEDS: DEXTROSE 5% IVPB SCH (08:01)
[2016-05-20] MEDS: FOLIC ACID IVPB SCH (08:01)
[2016-05-20] MEDS: THIAMINE IVPB SCH (08:01)
[2016-05-20] MEDS: MULTIVITAMINS IVPB SCH (08:01)
[2016-05-20] MEDS: PANTOPRAZOLE IV 80 MG in DEXTROSE 5% 100 ML IV SCH ×2 (08:01→19:43)
[2016-05-20 08:16] LABS: AADO2 Arterial 110.4 mmHg (7.0-24.0); Allen Test ACCEPTAB; Arterial Base Excess -2.5 mmol/L (-3.0-3); Arterial COHb 0.3 % (0.0-3.0); Arterial Fraction of Oxyhgb 94.3 % (93.0-99.0); Arterial HCO3 19.3 mmol/L (22.0-26.0); Arterial MetHb 0.3 % (0.0-1.5); Arterial Total Hemglobin 10.2 g/dl (12.0-18.0); MODE VENT - AC
[2016-05-20 09:25] LABS: BASOPHIL # 0.2 10^3/ul (0.0-0.1); EOSINOPHILS # 0.2 10^3/ul (0.0-0.5); LYMPHOCYTES # 1.2 10^3/ul (0.8-2.9); MONOCYTE # 0.8 10^3/ul (0.3-0.9); NEUTROPHIL # 11.9 10^3/ul (1.6-7.5)
[2016-05-20 10:06] LABS: BASOPHILS % 0.2 % (0.0-2.0); EOSINOPHILS # 0.1 10^3/ul (0.0-0.5); HEMATOCRIT 27.3 % (42.0-52.0); HEMOGLOBIN 9.2 g/dl (14.0-18.0); LYMPHOCYTES # 1.9 10^3/ul (0.8-2.9); LYMPHOCYTES % 13.8 % (15.0-51.0); MEAN CORPUSCULAR HEMOGLOBIN 30.1 pg (29.0-33.0); MEAN CORPUSCULAR HGB CONC 33.6 g/dl (32.0-37.0); MEAN CORPUSCULAR VOLUME 89.5 fl (82.0-101.0); MEAN PLATELET VOLUME 8.7 fl (7.4-10.4); MONOCYTE # 0.8 10^3/ul (0.3-0.9); MONOCYTES % 5.7 % (0.0-11.0); NEUTROPHIL # 10.8 10^3/ul (1.6-7.5); NEUTROPHILS % 79.3 % (39.0-77.0); PLATELET COUNT 121 10^3/UL (140-440); RED BLOOD COUNT 3.05 10^6/ul (4.70-6.10); UNCORRECTED WBC 13.6 10^3/ul (4.8-10.8); WHITE BLOOD COUNT 13.6 10^3/ul (4.8-10.8)
[2016-05-20 10:15] LABS: CONDITION 1; LH ANALYZER COMMENTS 1; SUSPECT 1
--- NOTE | 2016-05-20 10:38 | CONS ---
Date/Time of Note Date/Time of Note DATE: 05/20/16 TIME: 10:34 Consult Date/Type/Reason Admit Date/Time May 07, 2016 at 14:39 Type of Consultation: Pulm Subjective Remains intubated sedated Currently hemodynamically stable Grimaces to painful stimuli not consistently opening eyes and following commands Objective Vital Signs Date Time Temp Pulse Resp B/P Pulse Ox O2 Delivery O2 Flow Rate FiO2 05/20/16 09:00 87 20 121/70 98 05/20/16 08:00 98.5 Mechanical Ventilator 05/20/16 04:50 30 05/17/16 11:00 15.0 Intake and Output 05/19/16 05/19/16 05/20/16 15:00 23:00 07:00 Intake Total 1050.0 ml 1271.0 ml 95.0 ml Output Total 975 ml 265 ml 280 ml Balance 75.0 ml 1006.0 ml -185.0 ml PHYSICAL EXAMINATION: GENERAL: Elderly gentleman, mostly somnolent on mechanical ventilation. VITAL SIGNS: as above NECK: Supple, no JVD or lymphadenopathy. CARDIAC: S1, S2, no added sounds or murmurs. CHEST: Diminished air entry bilaterally. ABDOMEN: Soft, nontender. No guarding or rebound. EXTREMITIES: No cyanosis, clubbing or edema. NEUROLOGIC: Generalized weakness. Results/Medications Result Diagram: 05/20/16 0949 05/20/16 0400 Results 24 hrs Laboratory Tests Test 05/19/16 11:57 05/19/16 18:16 05/20/16 00:40 05/20/16 04:00 Hematocrit 25.1 L 27.4 L 27.0 L 28.3 L Hemoglobin 8.5 L 9.0 L 9.0 L 9.4 L Alanine Aminotransferase (ALT/SGPT) 52 Albumin 2.3 L Albumin/Globulin Ratio 0.51 Alkaline Phosphatase 159 H Anion Gap 12 Aspartate Amino Transf (AST/SGOT) 66 H Band Neutrophils % 7.0 H Basophils # 0.2 H Basophils % 1.0 Blood Morphology Comment Blood Urea Nitrogen 24 H Calcium Level 8.3 L Carbon Dioxide Level 24 Chloride Level 116 H Creatinine 0.68 Direct Bilirubin 0.00 Eosinophils # 0.2 Eosinophils % 1.0 Globulin 4.50 H Glucose Level 118 Indirect Bilirubin 1.3 H Lymphocytes # 1.2 Lymphocytes % 8.0 L Mean Corpuscular Hemoglobin 29.9 Mean Corpuscular Hemoglobin Concent 33.3 Mean Corpuscular Volume 89.8 Mean Platelet Volume 9.7 Monocytes # 0.8 Monocytes % 5.0 Neutrophils # 11.9 H Neutrophils % 78.0 H Platelet Count 116 #L Potassium Level 3.5 Red Blood Count 3.15 L Red Cell Distribution Width 17.8 H Sodium Level 148 H Total Bilirubin 1.3 Total Protein 6.8 White Blood Count 15.3 H Test 05/20/16 07:00 05/20/16 09:49 Arterial Blood HCO3 19.3 L Arterial Blood Base Excess -2.5 Arterial Blood Oxygen Saturation 94.9 L Tejinder Test ACCEPTAB Arterial Blood Gas Puncture Site Right Radial Arterial Blood Carboxyhemoglobin 0.3 Arterial Blood Date Drawn 05/20/2016 7:30:27 AM Arterial Blood Methemoglobin 0.3 Arterial Blood pCO2 (Temp correct) 24.4 L Arterial Blood pH (Temp corrected) 7.516 H Arterial Blood pO2 (Temp corrected) 74.8 L Blood Gas A-a O2 Differential 110.4 H Blood Gas Actual Respiration Rate 20 Blood Gas Low PEEP Setting 5.0 Blood Gas Modality VENT - AC Blood Gas Notified Time 05/20/2016 8:16:15 AM Blood Gas Notified Whom JLD Blood Gas Respiration Rate 20.0 Blood Gas Specimen Source Blood arterial Blood Gas Temperature 37.0 Blood Gas Tidal Volume 500.0 FiO2 30.0 Oxyhemoglobin Percent 94.3 Total Hemoglobin 10.2 L Basophils # 0.0 Basophils % 0.2 Blood Morphology Comment Eosinophils # 0.1 Eosinophils % 1.0 Hematocrit 27.3 L Hemoglobin 9.2 L Lactate Dehydrogenase 469 Lymphocytes # 1.9 Lymphocytes % 13.8 L Mean Corpuscular Hemoglobin 30.1 Mean Corpuscular Hemoglobin Concent 33.6 Mean Corpuscular Volume 89.5 Mean Platelet Volume 8.7 Monocytes # 0.8 Monocytes % 5.7 Neutrophils # 10.8 H Neutrophils % 79.3 H Nucleated Red Blood Cells # 0.0 Nucleated Red Blood Cells % 0.0 Platelet Count 121 L Red Blood Count 3.05 L Red Cell Distribution Width 17.0 H White Blood Count 13.6 H Medications Current Medications Ondansetron HCl (Zofran Inj) 4 mg Q6H PRN IV NAUSEA AND/OR VOMITING; Start 05/07/16 at 19:30 Morphine Sulfate (morphine) 2 mg Q4H PRN IV SEVERE PAIN LEVEL 7-10 Last administered on 05/08/16at 20:08; Admin Dose 2 MG; Start 05/07/16 at 19:30 Docusate Sodium (Colace) 100 mg Q12H PRN PO CONSTIPATION; Start 05/07/16 at 19: 30 Lorazepam (Ativan) 1 mg Q2 PRN IV AGITATION/ANXIETY; Start 05/09/16 at 16:30 Furosemide (Lasix) 40 mg DAILY@06 IV Last administered on 05/20/16at 05:45; Admin Dose 40 MG; Start 05/10/16 at 14:30 Lactulose (Lactulose Enema) 100 ml Q6 DC Last administered on 05/17/16at 05:07 ; Admin Dose 100 ML; Start 05/13/16 at 18:00 IV Flush 10 ml 10 ml PRN PRN IV IV PROTOCOL; Start 05/17/16 at 12:00 Propofol 100 ml @ 1.692 mls/ hr Q12H IV Last administered on 05/18/16at 05:21 ; Admin Dose 6.768 MLS/HR; Start 05/17/16 at 13:00 Multivitamins 10 ml/Thiamine HCl 100 mg/Folic Acid 1 mg/Dextrose 1,011.2 ml @ 75 mls/hr DAILY@09 IVPB Last administered on 05/20/16at 08:01; Admin Dose 75 MLS/HR; Start 05/19/16 at 12:00 Octreotide Acetate 500 mcg/ Dextrose 50 ml @ 2.5 mls/hr Q20H IV Last administered on 05/19/16at 23:42; Admin Dose 2.5 MLS/HR; Start 05/19/16 at 12: 00 Pantoprazole/ Dextrose (Protonix Iv/D5W) 100 ml @ 10 mls/hr Q10H IV Last administered on 05/20/16at 08:01; Admin Dose 10 MLS/HR; Start 05/19/16 at 12:00 Assessment/Plan Chief Complaint/Hosp Course IMPRESSION AND PLAN: 1. Acute gastrointestinal bleed. 2. Severe anemia. 3. Status post hypotensive shock 4. History of ETOH abuse with esophageal varices and portal hypertension. 5. Resp failure secondary to encephalopathy. 6. Encephalopathy toxic metabolic Plan 1. Vent support CPAP trial if patient becomes more alert 2. s/p Emergent endoscopy per GI. Continue recs 3. Transfusion of packed red blood cells keep Hb > 8 4. Correction of coagulopathy. 5. DVT and GI prophylaxis. Prognosis guarded. Patient's son to arrive to help with decision-making Problems: JAMILA TRAVIS MD, [facility] May 20, 2016 10:37
--- NOTE | 2016-05-20 12:43 | RADRPT ---
PROCEDURE: MRI Brain without contrast. CLINICAL INDICATION: Altered mental status. TECHNIQUE: An MRI of the brain was performed utilizing the following sequences: Sagittal and axial T1 weighted, axial T2 weighted, axial diffusion weighted with ADC mapping, coronal GRE, and axial F LAIR. COMPARISON: Brain CT 05/16/2016. FINDINGS: No diffusion weighted abnormalities are seen to suggest the presence of acute ischemia or recent inf arct. No hypointense signal abnormalities are seen on the GRE images to suggest the presence of blo od degradation products. There is no evidence of intracranial hemorrhage, mass effect, or midline s hift. No extra-axial fluid collections are seen. The ventricles and sulci are mildly enlarged indica tive of volume loss. There are areas of encephalomalacia in the bilateral anterior frontal lobes, r ight greater than left, which likely represent sequela of prior trauma. There are additional mild scattered foci of T2 FLAIR hyperintensity in the periventricular, deep, an d subcortical white matter, which are nonspecific in etiology but likely reflect chronic small vesse l ischemic changes. No abnormal intracranial vascular flow void is noted. The visualized paranasal sinuses demonstrate m ild scattered mucosal thickening. There are small fluid levels in bilateral sphenoid sinuses. Parti al opacification of the bilateral mastoid air cells are noted. There is retained secretion in the p osterior nasopharynx and nasal cavity, likely due to intubation. IMPRESSION: 1. No acute intracranial hemorrhage, infarction or mass. 2. Mild chronic small vessel ischemic changes. 3. Encephalomalacia in the bilateral anterior frontal lobes which likely represent sequela of prio r trauma. 4. Mild generalized cerebral and cerebellar volume loss. 5. Mild paranasal sinus disease. Small fluid levels in bilateral sphenoid sinuses, correlate for ac [place] sinusitis. Partial opacification of bilateral mastoid air cells. RPTAT: HH .Brooklyn Miller MD, MD Date Time Electronically viewed and signed by .Brooklyn Miller MD, MD on 05/20/2016 12:43 .N/
--- NOTE | 2016-05-20 14:04 | CONS ---
Date/Time of Note Date/Time of Note DATE: 05/20/16 TIME: 13:44 Assessment/Plan Assessment/Plan Chief Complaint/Hosp Course 70 yo male, with alcoholic cirrhosis admitted for upper GI bleed, who on 05/17 was noted to be hypotensive secondary to a drop in HG who subsequently developed a leukocytosis and bandemia. Although bandemia is usually seen with septic shock it can also been seen with hypovolemic shock which may have happened on 05/17. 1 I will review the peripheral smear to ensure there are no signs of malignant cells. 2.We will also check blood and urine cx to ensure there is no infection we are missing. 3. continue supportive care 4. will continue to follow CBC Approximately 40 min were spent at patient's bedside and in coordination of his care Problems: Consultation Date/Type/Reason Admit Date/Time May 07, 2016 at 14:39 Date of Consultation: May 20, 2016 Type of Consultation: Hematology Reason for Consultation leukocytosis/ bandemia Referring Provider: KASH OLVERA Hx of Present Illness 70-year-old male with known history of alcohol abuse, homelessness. The patient presented on 05/07 with hematemesis, while actively drinking. Pt was stabilized for GI bleed and underwent and is now s/p EGD x 2 on 05/08 and 05/17. Patient was found with varices grade IV and has been banded. He also has portal hypertension, ascites and encephalopathy. Pt is now intubated and minimally responsive. Since 05/17 patient is noted to have a worsening leukocytosis and bandemia in the absence of an obvious infection. we have thus been called for further workup. Subjective hx not possible: pt non-verbal, pt critical Psychological: other (unable to assess) Past Medical History Alcohol abuse with previous hospitalization for alcohol withdrawal, weakness. Past Surgical History The patient is homeless. He does have a history of alcohol abuse. It is not clear if he uses illicit drugs or cigarettes. Family History Significant Family History: no pertinent family hx Social History Alcohol Use: heavy Smoking Status: Never smoker Drug Use: none Exam/Review of Systems Vital Signs Vitals Vital Signs Date Time Temp Pulse Resp B/P Pulse Ox O2 Delivery O2 Flow Rate FiO2 05/20/16 12:30 103 05/20/16 09:00 20 121/70 98 05/20/16 08:00 30 05/20/16 08:00 98.5 Mechanical Ventilator 05/17/16 11:00 15.0 Intake and Output 05/19/16 05/19/16 05/20/16 15:00 23:00 07:00 Intake Total 1050.0 ml 1271.0 ml 95.0 ml Output Total 975 ml 265 ml 480 ml Balance 75.0 ml 1006.0 ml -385.0 ml Exam Constitutional: non-verbal Head: atraumatic, normocephalic Eyes: nl conjunctiva ENMT: intubated Neck: non-tender, supple Respiratory: labored breathing Cardiovascular: other (tachycardic) Gastrointestinal: ascites Musculoskeletal: nl extremities to inspection, nl gait and stance Extremities: normal pulses Results Result Diagram: 05/20/16 0949 05/20/16 0400 Results 24 hrs Laboratory Tests Test 05/19/16 18:16 05/20/16 00:40 05/20/16 04:00 05/20/16 07:00 Hematocrit 27.4 L 27.0 L 28.3 L Hemoglobin 9.0 L 9.0 L 9.4 L Alanine Aminotransferase (ALT/SGPT) 52 Albumin 2.3 L Albumin/Globulin Ratio 0.51 Alkaline Phosphatase 159 H Anion Gap 12 Aspartate Amino Transf (AST/SGOT) 66 H Band Neutrophils % 7.0 H Basophils # 0.2 H Basophils % 1.0 Blood Morphology Comment Blood Urea Nitrogen 24 H Calcium Level 8.3 L Carbon Dioxide Level 24 Chloride Level 116 H Creatinine 0.68 Direct Bilirubin 0.00 Eosinophils # 0.2 Eosinophils % 1.0 Globulin 4.50 H Glucose Level 118 Indirect Bilirubin 1.3 H Lymphocytes # 1.2 Lymphocytes % 8.0 L Mean Corpuscular Hemoglobin 29.9 Mean Corpuscular Hemoglobin Concent 33.3 Mean Corpuscular Volume 89.8 Mean Platelet Volume 9.7 Monocytes # 0.8 Monocytes % 5.0 Neutrophils # 11.9 H Neutrophils % 78.0 H Platelet Count 116 #L Potassium Level 3.5 Red Blood Count 3.15 L Red Cell Distribution Width 17.8 H Sodium Level 148 H Total Bilirubin 1.3 Total Protein 6.8 White Blood Count 15.3 H Arterial Blood HCO3 19.3 L Arterial Blood Base Excess -2.5 Arterial Blood Oxygen Saturation 94.9 L Tejinder Test ACCEPTAB Arterial Blood Gas Puncture Site Right Radial Arterial Blood Carboxyhemoglobin 0.3 Arterial Blood Date Drawn 05/20/2016 7:30:27 AM Arterial Blood Methemoglobin 0.3 Arterial Blood pCO2 (Temp correct) 24.4 L Arterial Blood pH (Temp corrected) 7.516 H Arterial Blood pO2 (Temp corrected) 74.8 L Blood Gas A-a O2 Differential 110.4 H Blood Gas Actual Respiration Rate 20 Blood Gas Low PEEP Setting 5.0 Blood Gas Modality VENT - AC Blood Gas Notified Time 05/20/2016 8:16:15 AM Blood Gas Notified Whom JLD Blood Gas Respiration Rate 20.0 Blood Gas Specimen Source Blood arterial Blood Gas Temperature 37.0 Blood Gas Tidal Volume 500.0 FiO2 30.0 Oxyhemoglobin Percent 94.3 Total Hemoglobin 10.2 L Test 05/20/16 09:49 Basophils # 0.0 Basophils % 0.2 Blood Morphology Comment Differential Comment AUTO w/SCAN Eosinophils # 0.1 Eosinophils % 1.0 Hematocrit 27.3 L Hemoglobin 9.2 L Lactate Dehydrogenase 469 Lymphocytes # 1.9 Lymphocytes % 13.8 L Mean Corpuscular Hemoglobin 30.1 Mean Corpuscular Hemoglobin Concent 33.6 Mean Corpuscular Volume 89.5 Mean Platelet Volume 8.7 Monocytes # 0.8 Monocytes % 5.7 Neutrophils # 10.8 H Neutrophils % 79.3 H Nucleated Red Blood Cells # 0.0 Nucleated Red Blood Cells % 0.0 Platelet Count 121 L Red Blood Count 3.05 L Red Cell Distribution Width 17.0 H White Blood Count 13.6 H Medications Medications Current Medications Ondansetron HCl (Zofran Inj) 4 mg Q6H PRN IV NAUSEA AND/OR VOMITING; Start 05/07/16 at 19:30 Morphine Sulfate (morphine) 2 mg Q4H PRN IV SEVERE PAIN LEVEL 7-10 Last administered on 05/08/16at 20:08; Admin Dose 2 MG; Start 05/07/16 at 19:30 Docusate Sodium (Colace) 100 mg Q12H PRN PO CONSTIPATION; Start 05/07/16 at 19: 30 Lorazepam (Ativan) 1 mg Q2 PRN IV AGITATION/ANXIETY; Start 05/09/16 at 16:30 Furosemide (Lasix) 40 mg DAILY@06 IV Last administered on 05/20/16at 05:45; Admin Dose 40 MG; Start 12/9/16 at 14:30 Lactulose (Lactulose Enema) 100 ml Q6 NH Last administered on 05/17/16at 05:07 ; Admin Dose 100 ML; Start 05/13/16 at 18:00 IV Flush 10 ml 10 ml PRN PRN IV IV PROTOCOL; Start 05/17/16 at 12:00 Propofol 100 ml @ 1.692 mls/ hr Q12H IV Last administered on 05/18/16at 05:21 ; Admin Dose 6.768 MLS/HR; Start 05/17/16 at 13:00 Multivitamins 10 ml/Thiamine HCl 100 mg/Folic Acid 1 mg/Dextrose 1,011.2 ml @ 75 mls/hr DAILY@09 IVPB Last administered on 05/20/16at 08:01; Admin Dose 75 MLS/HR; Start 05/19/16 at 12:00 Octreotide Acetate 500 mcg/ Dextrose 50 ml @ 2.5 mls/hr Q20H IV Last administered on 05/19/16at 23:42; Admin Dose 2.5 MLS/HR; Start 05/19/16 at 12: 00 Pantoprazole/ Dextrose (Protonix Iv/D5W) 100 ml @ 10 mls/hr Q10H IV Last administered on 05/20/16at 08:01; Admin Dose 10 MLS/HR; Start 05/19/16 at 12:00 ERIN MEIER M.D. May 20, 2016 13:56
--- NOTE | 2016-05-20 14:28 | PN ---
Date/Time of Note Date/Time of Note DATE: 05/20/16 TIME: 14:24 Assessment/Plan VTE Prophylaxis VTE Prophylaxis Intervention: SCD's Assessment/Plan Chief Complaint/Hosp Course 1. Respiratory failure on full vent support patient intubated for airway protection during acute GI bleed /commence ventilator weaning/ appreciate pulm input 2. Upper gastrointestinal bleed secondary to esophageal varices GI consult much appreciated, s/p EGD x2 done and patient has multiple esophageal varices and ulcers status post ligation / H an H is still low but stable /Remains on octreotide and Protonix drips 3. Hepatic encephalopathy Continue rectal lactulose / librium D/c / ammonia levels normal x 2 days EEG shows Encephalopathy, CT shows no acute abnormalities 4. Acute on chronic anemia 2/2 Blood loss Monitor 5. 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 Homelessness CM working on placement 7. Leucocytosis + bandemia blood cultures and urine cultures still pending/ no overt evidence of severe infection /hematology consult Prophylaxis: SCDs Problems: Subjective 24 Hr Interval Summary Subjective hx not possible: pt non-verbal Exam/Review of Systems Vital Signs Vitals Vital Signs Date Time Temp Pulse Resp B/P Pulse Ox O2 Delivery O2 Flow Rate FiO2 05/20/16 12:30 103 05/20/16 09:00 20 121/70 98 05/20/16 08:00 30 05/20/16 08:00 98.5 Mechanical Ventilator 05/17/16 11:00 15.0 Intake and Output 05/19/16 05/19/16 05/20/16 15:00 23:00 07:00 Intake Total 1050.0 ml 1271.0 ml 95.0 ml Output Total 975 ml 265 ml 480 ml Balance 75.0 ml 1006.0 ml -385.0 ml Exam Constitutional: non-verbal ENMT: intubated Respiratory: clear to auscultation Cardiovascular: regular rate and rhythm Gastrointestinal: soft, No distended Musculoskeletal: nl extremities to inspection Results Result Diagram: 05/20/16 0949 05/20/16 0400 Results 24 hrs Laboratory Tests Test 05/19/16 18:16 05/20/16 00:40 05/20/16 04:00 05/20/16 07:00 Hematocrit 27.4 L 27.0 L 28.3 L Hemoglobin 9.0 L 9.0 L 9.4 L Alanine Aminotransferase (ALT/SGPT) 52 Albumin 2.3 L Albumin/Globulin Ratio 0.51 Alkaline Phosphatase 159 H Anion Gap 12 Aspartate Amino Transf (AST/SGOT) 66 H Band Neutrophils % 7.0 H Basophils # 0.2 H Basophils % 1.0 Blood Morphology Comment Blood Urea Nitrogen 24 H Calcium Level 8.3 L Carbon Dioxide Level 24 Chloride Level 116 H Creatinine 0.68 Direct Bilirubin 0.00 Eosinophils # 0.2 Eosinophils % 1.0 Globulin 4.50 H Glucose Level 118 Indirect Bilirubin 1.3 H Lymphocytes # 1.2 Lymphocytes % 8.0 L Mean Corpuscular Hemoglobin 29.9 Mean Corpuscular Hemoglobin Concent 33.3 Mean Corpuscular Volume 89.8 Mean Platelet Volume 9.7 Monocytes # 0.8 Monocytes % 5.0 Neutrophils # 11.9 H Neutrophils % 78.0 H Platelet Count 116 #L Potassium Level 3.5 Red Blood Count 3.15 L Red Cell Distribution Width 17.8 H Sodium Level 148 H Total Bilirubin 1.3 Total Protein 6.8 White Blood Count 15.3 H Arterial Blood HCO3 19.3 L Arterial Blood Base Excess -2.5 Arterial Blood Oxygen Saturation 94.9 L Tejinder Test ACCEPTAB Arterial Blood Gas Puncture Site Right Radial Arterial Blood Carboxyhemoglobin 0.3 Arterial Blood Date Drawn 05/20/2016 7:30:27 AM Arterial Blood Methemoglobin 0.3 Arterial Blood pCO2 (Temp correct) 24.4 L Arterial Blood pH (Temp corrected) 7.516 H Arterial Blood pO2 (Temp corrected) 74.8 L Blood Gas A-a O2 Differential 110.4 H Blood Gas Actual Respiration Rate 20 Blood Gas Low PEEP Setting 5.0 Blood Gas Modality VENT - AC Blood Gas Notified Time 05/20/2016 8:16:15 AM Blood Gas Notified Whom JLD Blood Gas Respiration Rate 20.0 Blood Gas Specimen Source Blood arterial Blood Gas Temperature 37.0 Blood Gas Tidal Volume 500.0 FiO2 30.0 Oxyhemoglobin Percent 94.3 Total Hemoglobin 10.2 L Test 05/20/16 09:49 Basophils # 0.0 Basophils % 0.2 Blood Morphology Comment Differential Comment AUTO w/SCAN Eosinophils # 0.1 Eosinophils % 1.0 Hematocrit 27.3 L Hemoglobin 9.2 L Lactate Dehydrogenase 469 Lymphocytes # 1.9 Lymphocytes % 13.8 L Mean Corpuscular Hemoglobin 30.1 Mean Corpuscular Hemoglobin Concent 33.6 Mean Corpuscular Volume 89.5 Mean Platelet Volume 8.7 Monocytes # 0.8 Monocytes % 5.7 Neutrophils # 10.8 H Neutrophils % 79.3 H Nucleated Red Blood Cells # 0.0 Nucleated Red Blood Cells % 0.0 Platelet Count 121 L Red Blood Count 3.05 L Red Cell Distribution Width 17.0 H White Blood Count 13.6 H Medications Medications Current Medications Ondansetron HCl (Zofran Inj) 4 mg Q6H PRN IV NAUSEA AND/OR VOMITING; Start 05/07/16 at 19:30 Morphine Sulfate (morphine) 2 mg Q4H PRN IV SEVERE PAIN LEVEL 7-10 Last administered on 05/08/16at 20:08; Admin Dose 2 MG; Start 05/07/16 at 19:30 Docusate Sodium (Colace) 100 mg Q12H PRN PO CONSTIPATION; Start 05/07/16 at 19: 30 Lorazepam (Ativan) 1 mg Q2 PRN IV AGITATION/ANXIETY; Start 05/09/16 at 16:30 Furosemide (Lasix) 40 mg DAILY@06 IV Last administered on 05/20/16at 05:45; Admin Dose 40 MG; Start 05/10/16 at 14:30 Lactulose (Lactulose Enema) 100 ml Q6 MS Last administered on 05/17/16at 05:07 ; Admin Dose 100 ML; Start 05/13/16 at 18:00 IV Flush 10 ml 10 ml PRN PRN IV IV PROTOCOL; Start 05/17/16 at 12:00 Propofol 100 ml @ 1.692 mls/ hr Q12H IV Last administered on 05/18/16at 05:21 ; Admin Dose 6.768 MLS/HR; Start 05/17/16 at 13:00 Multivitamins 10 ml/Thiamine HCl 100 mg/Folic Acid 1 mg/Dextrose 1,011.2 ml @ 75 mls/hr DAILY@09 IVPB Last administered on 05/20/16at 08:01; Admin Dose 75 MLS/HR; Start 05/19/16 at 12:00 Octreotide Acetate 500 mcg/ Dextrose 50 ml @ 2.5 mls/hr Q20H IV Last administered on 12/18/16at 23:42; Admin Dose 2.5 MLS/HR; Start 05/19/16 at 12: 00 Pantoprazole/ Dextrose (Protonix Iv/D5W) 100 ml @ 10 mls/hr Q10H IV Last administered on 05/20/16at 08:01; Admin Dose 10 MLS/HR; Start 05/19/16 at 12:00 ZHENG VERA May 20, 2016 14:28
[2016-05-20 16:22] LABS: LH ANALYZER COMMENTS 1
[2016-05-20 17:00] LABS: HEMATOCRIT 28.9 % (42.0-52.0); HEMOGLOBIN 9.6 g/dl (14.0-18.0)
[2016-05-21] VITALS (51 sets, daily range): BP systolic 82–141; BP diastolic 57–91; PULSE 83–113; RESP 19–32
[2016-05-21] MEDS: PROPOFOL 100 ML IV SCH ×3 (00:28→16:51)
[2016-05-21] MEDS: OCTREOTIDE 500 MCG in DEXTROSE 5% 49 ML IV SCH ×2 (00:28→19:42)
[2016-05-21] MEDS: IPRATROPIUM (HFA) 12.9 GM INHALER INH SCH ×4 (01:45→19:48)
[2016-05-21] MEDS: ALBUTEROL HFA 8 GM INHALER INH SCH ×4 (01:45→19:48)
[2016-05-21] MEDS: LACTULOSE ENEMA 1,000 ML BTL PR SCH ×5 (04:44→23:41)
[2016-05-21 05:32] LABS: CALCIUM 8.1 mg/dl (8.4-10.2); CREATININE 0.64 mg/dl (0.61-1.24); POTASSIUM 3.1 mmol/L (3.5-5.1)
[2016-05-21 05:44] LABS: EOSINOPHILS # 0.2 10^3/ul (0.0-0.5); EOSINOPHILS % 1.3 % (0.0-7.0); HEMATOCRIT 28.2 % (42.0-52.0); HEMOGLOBIN 9.1 g/dl (14.0-18.0); LYMPHOCYTES # 2.1 10^3/ul (0.8-2.9); LYMPHOCYTES % 14.7 % (15.0-51.0); MEAN CORPUSCULAR HEMOGLOBIN 29.6 pg (29.0-33.0); MEAN CORPUSCULAR HGB CONC 32.4 g/dl (32.0-37.0); MEAN CORPUSCULAR VOLUME 91.3 fl (82.0-101.0); MEAN PLATELET VOLUME 9.7 fl (7.4-10.4); MONOCYTE # 0.9 10^3/ul (0.3-0.9); MONOCYTES % 6.2 % (0.0-11.0); NEUTROPHILS % 77.8 % (39.0-77.0); PLATELET COUNT 135 10^3/UL (140-440); RED BLOOD COUNT 3.09 10^6/ul (4.70-6.10); RED CELL DISTRIBUTION WIDTH 17.2 % (11.5-14.5); UNCORRECTED WBC 14.1 10^3/ul (4.8-10.8); WHITE BLOOD COUNT 14.1 10^3/ul (4.8-10.8)
[2016-05-21 05:53] LABS: CONDITION 1; LH ANALYZER COMMENTS 1; SUSPECT 1
[2016-05-21] MEDS: FUROSEMIDE 40 MG INJ IV SCH (06:03)
[2016-05-21] MEDS: PANTOPRAZOLE IV 80 MG in DEXTROSE 5% 100 ML IV SCH ×2 (06:03→14:00)
[2016-05-21 07:58] LABS: AADO2 Arterial 108.5 mmHg (7.0-24.0); Allen Test ACCEPTAB; Arterial Base Excess 0.4 mmol/L (-3.0-3); Arterial COHb 0.3 % (0.0-3.0); Arterial Fraction of Oxyhgb 95.1 % (93.0-99.0); Arterial HCO3 22.2 mmol/L (22.0-26.0); Arterial MetHb 0.2 % (0.0-1.5); Arterial Total Hemglobin 10.5 g/dl (12.0-18.0); MODE VENT - AC
[2016-05-21] MEDS: FOLIC ACID IVPB SCH (08:03)
[2016-05-21] MEDS: MULTIVITAMINS IVPB SCH (08:03)
[2016-05-21] MEDS: THIAMINE IVPB SCH (08:03)
[2016-05-21] MEDS: DEXTROSE 5% IVPB SCH (08:03)
--- NOTE | 2016-05-21 09:38 | CONS ---
Date/Time of Note Date/Time of Note DATE: 05/21/16 TIME: 09:36 Assessment/Plan Assessment/Plan Chief Complaint/Hosp Course 70 yo male, with alcoholic cirrhosis admitted for upper GI bleed, who on 05/17 was noted to be hypotensive secondary to a drop in HG who subsequently developed a leukocytosis and bandemia. Although bandemia is usually seen with septic shock it can also been seen with hypovolemic shock which may have happened on 05/17. Leukocytosis is also very common with ascites and may be elevated secondary to the peritoneal inflammation. The peripheral smear was reviewed which demonstrated no evidence of malignant cells. -need to f/u blood and urine cx to ensure there is no infection we are missing. -continue supportive care -continue to follow CBC Approximately 40 min were spent at patient's bedside and in coordination of his care Problems: Consultation Date/Type/Reason Admit Date/Time May 07, 2016 at 14:39 Initial Consult Date 05/20/16 Type of Consultation: Hematology Reason for Consultation leukocytosis Referring Provider: KASH OLVERA 24 HR Interval Summary Free Text/Dictation pt still only minimally responsive Exam/Review of Systems Vital Signs Vitals Vital Signs Date Time Temp Pulse Resp B/P Pulse Ox O2 Delivery O2 Flow Rate FiO2 05/21/16 06:00 83 20 105/73 99 05/21/16 05:10 30 05/21/16 05:00 Mechanical Ventilator 05/21/16 04:00 97.9 05/17/16 11:00 15.0 Intake and Output 05/20/16 05/20/16 05/21/16 15:00 23:00 07:00 Intake Total 615.0 ml 465.0 ml 22.5 ml Output Total 355 ml 285 ml 40 ml Balance 260.0 ml 180.0 ml -17.5 ml Exam Constitutional: non-verbal ENMT: intubated Neck: non-tender, supple Respiratory: clear to auscultation Cardiovascular: regular rate and rhythm Gastrointestinal: ascites Musculoskeletal: nl extremities to inspection, nl gait and stance Extremities: edema, normal pulses Results Result Diagram: 05/21/16 0400 05/21/16 0400 Results 24 hrs Laboratory Tests Test 05/20/16 09:49 05/20/16 16:00 05/21/16 04:00 05/21/16 07:00 Basophils # 0.0 0.0 Basophils % 0.2 0.0 Blood Morphology Comment Differential Comment AUTO w/SCAN Eosinophils # 0.1 0.2 Eosinophils % 1.0 1.3 Hematocrit 27.3 L 28.9 L 28.2 L Hemoglobin 9.2 L 9.6 L 9.1 L Lactate Dehydrogenase 469 Lymphocytes # 1.9 2.1 Lymphocytes % 13.8 L 14.7 L Mean Corpuscular Hemoglobin 30.1 29.6 Mean Corpuscular Hemoglobin Concent 33.6 32.4 Mean Corpuscular Volume 89.5 91.3 Mean Platelet Volume 8.7 9.7 Monocytes # 0.8 0.9 Monocytes % 5.7 6.2 Neutrophils # 10.8 H 11.0 H Neutrophils % 79.3 H 77.8 H Nucleated Red Blood Cells # 0.0 0.0 Nucleated Red Blood Cells % 0.0 0.0 Platelet Count 121 L 135 L Red Blood Count 3.05 L 3.09 L Red Cell Distribution Width 17.0 H 17.2 H White Blood Count 13.6 H 14.1 H Anion Gap 9 Blood Urea Nitrogen 21 H Calcium Level 8.1 L Carbon Dioxide Level 24 Chloride Level 113 H Creatinine 0.64 Glucose Level 126 Potassium Level 3.1 L Sodium Level 143 Arterial Blood HCO3 22.2 Arterial Blood Base Excess 0.4 Arterial Blood Oxygen Saturation 95.6 Tejinder Test ACCEPTAB Arterial Blood Gas Puncture Site Right Radial Arterial Blood Carboxyhemoglobin 0.3 Arterial Blood Date Drawn 05/21/2016 7:10:22 AM Arterial Blood Methemoglobin 0.2 Arterial Blood pCO2 (Temp correct) 26.7 L Arterial Blood pH (Temp corrected) 7.537 H Arterial Blood pO2 (Temp corrected) 74.0 L Blood Gas A-a O2 Differential 108.5 H Blood Gas Actual Respiration Rate 20 Blood Gas Low PEEP Setting 5.0 Blood Gas Modality VENT - AC Blood Gas Notified Time 05/21/2016 7:58:00 AM Blood Gas Notified Whom JLD Blood Gas Respiration Rate 20.0 Blood Gas Specimen Source Blood arterial Blood Gas Temperature 37.0 Blood Gas Tidal Volume 500.0 FiO2 30.0 Oxyhemoglobin Percent 95.1 Total Hemoglobin 10.5 L Medications Medications Current Medications Ondansetron HCl (Zofran Inj) 4 mg Q6H PRN IV NAUSEA AND/OR VOMITING; Start 05/07/16 at 19:30 Morphine Sulfate (morphine) 2 mg Q4H PRN IV SEVERE PAIN LEVEL 7-10 Last administered on 05/08/16at 20:08; Admin Dose 2 MG; Start 05/07/16 at 19:30 Docusate Sodium (Colace) 100 mg Q12H PRN PO CONSTIPATION; Start 05/07/16 at 19: 30 Lorazepam (Ativan) 1 mg Q2 PRN IV AGITATION/ANXIETY; Start 05/09/16 at 16:30 Furosemide (Lasix) 40 mg DAILY@06 IV Last administered on 05/21/16at 06:03; Admin Dose 40 MG; Start 05/10/16 at 14:30 Lactulose (Lactulose Enema) 100 ml Q6 MD Last administered on 05/17/16at 05:07 ; Admin Dose 100 ML; Start 05/13/16 at 18:00 IV Flush 10 ml 10 ml PRN PRN IV IV PROTOCOL; Start 05/17/16 at 12:00 Propofol 100 ml @ 1.692 mls/ hr Q12H IV Last administered on 05/18/16at 05:21 ; Admin Dose 6.768 MLS/HR; Start 05/17/16 at 13:00 Multivitamins 10 ml/Thiamine HCl 100 mg/Folic Acid 1 mg/Dextrose 1,011.2 ml @ 75 mls/hr DAILY@09 IVPB Last administered on 05/21/16at 08:03; Admin Dose 75 MLS/HR; Start 05/19/16 at 12:00 Octreotide Acetate 500 mcg/ Dextrose 50 ml @ 2.5 mls/hr Q20H IV Last administered on 05/21/16at 00:28; Admin Dose 2.5 MLS/HR; Start 05/19/16 at 12: 00 Pantoprazole/ Dextrose (Protonix Iv/D5W) 100 ml @ 10 mls/hr Q10H IV Last administered on 05/21/16at 06:03; Admin Dose 10 MLS/HR; Start 05/19/16 at 12:00 ERIN MEIER M.D. May 21, 2016 09:38
--- NOTE | 2016-05-21 10:32 | RADRPT ---
PROCEDURE: Chest Radiograph. CLINICAL INDICATION: GI bleed TECHNIQUE: Single frontal chest radiograph. COMPARISON: Chest radiograph 05/20/2016 FINDINGS: An endotracheal tube remains in stable position. Chest tube remains in place with distal tip approx imate 1.5 cm above the erasto. A left upper extremity PICC is unchanged.. Lung volumes are decreas ed in there is basilar atelectasis and central compressive changes. There is likely a trace left ple ural effusion with adjacent atelectasis.. The bones are intact. IMPRESSION: 1. Low lung volumes with basilar atelectasis and central compressive changes. 2. Probable trace left pleural effusion with adjacent atelectasis, improved. 3. Lines and tubes are stable. RPTAT: KK .René Dorman MD, Date Time Electronically viewed and signed by .René Dorman MD, MD on 05/21/2016 10:32 .B/
[2016-05-21] MEDS ORDERED: POTASSIUM CHLORIDE 250 ML IVPB ONE (11:00)
--- NOTE | 2016-05-21 14:55 | PN ---
Date/Time of Note Date/Time of Note DATE: 05/21/16 TIME: 14:53 Assessment/Plan VTE Prophylaxis VTE Prophylaxis Intervention: SCD's Assessment/Plan Chief Complaint/Hosp Course 1. Respiratory failure on full vent support patient intubated for airway protection during acute GI bleed /commence ventilator weaning/ appreciate pulm input 2. Upper gastrointestinal bleed secondary to esophageal varices GI consult much appreciated, s/p EGD x2 done and patient has multiple esophageal varices and ulcers status post ligation / H an H is still low but stable /Remains on octreotide and Protonix drips 3. Hepatic encephalopathy Continue rectal lactulose / librium D/c / ammonia levels normal x 2 days EEG shows Encephalopathy, CT shows no acute abnormalities 4. Acute on chronic anemia 2/2 Blood loss Monitor 5. Alcohol related liver disease with ascites Continue with Lasix and Aldactone patient will be advised for cessation if/when mentation improves Ongoing social science manager and CM review 6. Homelessness CM working on placement 7. Leucocytosis + bandemia urine cultures shows Gram neg rods, start Rocephin Prophylaxis: SCDs Problems: Subjective 24 Hr Interval Summary Subjective hx not possible: pt non-verbal Exam/Review of Systems Vital Signs Vitals Vital Signs Date Time Temp Pulse Resp B/P Pulse Ox O2 Delivery O2 Flow Rate FiO2 05/21/16 12:00 98.0 99 20 132/80 98 Mechanical Ventilator 05/21/16 08:00 30 05/17/16 11:00 15.0 Intake and Output 05/20/16 05/20/16 05/21/16 15:00 23:00 07:00 Intake Total 615.0 ml 465.0 ml 22.5 ml Output Total 355 ml 285 ml 40 ml Balance 260.0 ml 180.0 ml -17.5 ml Exam Constitutional: non-verbal ENMT: intubated Respiratory: clear to auscultation Cardiovascular: regular rate and rhythm Gastrointestinal: soft, No distended Musculoskeletal: nl extremities to inspection Results Result Diagram: 05/21/16 0400 05/21/16 0400 Results 24 hrs Laboratory Tests Test 05/20/16 16:00 05/21/16 04:00 05/21/16 07:00 Hematocrit 28.9 L 28.2 L Hemoglobin 9.6 L 9.1 L Anion Gap 9 Basophils # 0.0 Basophils % 0.0 Blood Morphology Comment Blood Urea Nitrogen 21 H Calcium Level 8.1 L Carbon Dioxide Level 24 Chloride Level 113 H Creatinine 0.64 Eosinophils # 0.2 Eosinophils % 1.3 Glucose Level 126 Lymphocytes # 2.1 Lymphocytes % 14.7 L Mean Corpuscular Hemoglobin 29.6 Mean Corpuscular Hemoglobin Concent 32.4 Mean Corpuscular Volume 91.3 Mean Platelet Volume 9.7 Monocytes # 0.9 Monocytes % 6.2 Neutrophils # 11.0 H Neutrophils % 77.8 H Nucleated Red Blood Cells # 0.0 Nucleated Red Blood Cells % 0.0 Platelet Count 135 L Potassium Level 3.1 L Red Blood Count 3.09 L Red Cell Distribution Width 17.2 H Sodium Level 143 White Blood Count 14.1 H Arterial Blood HCO3 22.2 Arterial Blood Base Excess 0.4 Arterial Blood Oxygen Saturation 95.6 Tejinder Test ACCEPTAB Arterial Blood Gas Puncture Site Right Radial Arterial Blood Carboxyhemoglobin 0.3 Arterial Blood Date Drawn 05/21/2016 7:10:22 AM Arterial Blood Methemoglobin 0.2 Arterial Blood pCO2 (Temp correct) 26.7 L Arterial Blood pH (Temp corrected) 7.537 H Arterial Blood pO2 (Temp corrected) 74.0 L Blood Gas A-a O2 Differential 108.5 H Blood Gas Actual Respiration Rate 20 Blood Gas Low PEEP Setting 5.0 Blood Gas Modality VENT - AC Blood Gas Notified Time 05/21/2016 7:58:00 AM Blood Gas Notified Whom JLD Blood Gas Respiration Rate 20.0 Blood Gas Specimen Source Blood arterial Blood Gas Temperature 37.0 Blood Gas Tidal Volume 500.0 FiO2 30.0 Oxyhemoglobin Percent 95.1 Total Hemoglobin 10.5 L Medications Medications Current Medications Ondansetron HCl (Zofran Inj) 4 mg Q6H PRN IV NAUSEA AND/OR VOMITING; Start 05/07/16 at 19:30 Morphine Sulfate (morphine) 2 mg Q4H PRN IV SEVERE PAIN LEVEL 7-10 Last administered on 05/08/16at 20:08; Admin Dose 2 MG; Start 05/07/16 at 19:30 Docusate Sodium (Colace) 100 mg Q12H PRN PO CONSTIPATION; Start 05/07/16 at 19: 30 Lorazepam (Ativan) 1 mg Q2 PRN IV AGITATION/ANXIETY; Start 05/09/16 at 16:30 Furosemide (Lasix) 40 mg DAILY@06 IV Last administered on 05/21/16at 06:03; Admin Dose 40 MG; Start 05/10/16 at 14:30 Lactulose (Lactulose Enema) 100 ml Q6 [place] Last administered on 05/21/16at 12:17 ; Admin Dose 100 ML; Start 05/13/16 at 18:00 IV Flush 10 ml 10 ml PRN PRN IV IV PROTOCOL; Start 05/17/16 at 12:00 Propofol 100 ml @ 1.692 mls/ hr Q12H IV Last administered on 05/18/16at 05:21 ; Admin Dose 6.768 MLS/HR; Start 05/17/16 at 13:00 Multivitamins 10 ml/Thiamine HCl 100 mg/Folic Acid 1 mg/Dextrose 1,011.2 ml @ 75 mls/hr DAILY@09 IVPB Last administered on 05/21/16at 08:03; Admin Dose 75 MLS/HR; Start 05/19/16 at 12:00 Octreotide Acetate 500 mcg/ Dextrose 50 ml @ 2.5 mls/hr Q20H IV Last administered on 05/21/16at 00:28; Admin Dose 2.5 MLS/HR; Start 05/19/16 at 12: 00 Pantoprazole 80 mg/Dextrose 100 ml @ 10 mls/hr Q10H IV Last administered on at 06:03; Admin Dose 10 MLS/HR; Start 05/19/16 at 12:00 Potassium Chloride (KCl 40 MEQ/250 ML NS) 250 ml @ 62.5 mls/hr ONCE ONCE IVPB Last administered on 05/21/16at 11:44; Admin Dose 62.5 MLS/HR; Start at 11:00; Stop 05/21/16 at 14:59 ZHENG VERA May 21, 2016 14:55
[2016-05-21] MEDS: CEFTRIAXONE 1 GM/50 ML (PMX) 50 ML IVPB SCH (15:54)
--- NOTE | 2016-05-21 15:54 | CONS ---
Date/Time of Note Date/Time of Note DATE: 05/21/16 TIME: 15:49 Consult Date/Type/Reason Admit Date/Time May 07, 2016 at 14:39 Type of Consultation: pulmonary Ordering Provider: KASH OLVERA Subjective Patient remains stable on mechanical ventilation Largely somnolent not opening eyes or following commands consistently Continues mechanical ventilation Objective Vital Signs Date Time Temp Pulse Resp B/P Pulse Ox O2 Delivery O2 Flow Rate FiO2 05/21/16 15:00 96 20 121/75 97 Mechanical Ventilator 05/21/16 14:05 30 05/21/16 12:00 98.0 05/17/16 11:00 15.0 Intake and Output 05/20/16 05/20/16 05/21/16 15:00 23:00 07:00 Intake Total 615.0 ml 465.0 ml 22.5 ml Output Total 355 ml 285 ml 40 ml Balance 260.0 ml 180.0 ml -17.5 ml PHYSICAL EXAMINATION: GENERAL: Elderly gentleman, mostly somnolent on mechanical ventilation. VITAL SIGNS: as above NECK: Supple, no JVD or lymphadenopathy. CARDIAC: S1, S2, no added sounds or murmurs. CHEST: Diminished air entry bilaterally. ABDOMEN: Soft, nontender. No guarding or rebound. EXTREMITIES: No cyanosis, clubbing or edema. NEUROLOGIC: Generalized weakness. Results/Medications Result Diagram: 05/21/16 0400 05/21/16 0400 Results 24 hrs Laboratory Tests Test 05/20/16 16:00 05/21/16 04:00 05/21/16 07:00 Hematocrit 28.9 L 28.2 L Hemoglobin 9.6 L 9.1 L Anion Gap 9 Basophils # 0.0 Basophils % 0.0 Blood Morphology Comment Blood Urea Nitrogen 21 H Calcium Level 8.1 L Carbon Dioxide Level 24 Chloride Level 113 H Creatinine 0.64 Eosinophils # 0.2 Eosinophils % 1.3 Glucose Level 126 Lymphocytes # 2.1 Lymphocytes % 14.7 L Mean Corpuscular Hemoglobin 29.6 Mean Corpuscular Hemoglobin Concent 32.4 Mean Corpuscular Volume 91.3 Mean Platelet Volume 9.7 Monocytes # 0.9 Monocytes % 6.2 Neutrophils # 11.0 H Neutrophils % 77.8 H Nucleated Red Blood Cells # 0.0 Nucleated Red Blood Cells % 0.0 Platelet Count 135 L Potassium Level 3.1 L Red Blood Count 3.09 L Red Cell Distribution Width 17.2 H Sodium Level 143 White Blood Count 14.1 H Arterial Blood HCO3 22.2 Arterial Blood Base Excess 0.4 Arterial Blood Oxygen Saturation 95.6 Tejinder Test ACCEPTAB Arterial Blood Gas Puncture Site Right Radial Arterial Blood Carboxyhemoglobin 0.3 Arterial Blood Date Drawn 05/21/2016 7:10:22 AM Arterial Blood Methemoglobin 0.2 Arterial Blood pCO2 (Temp correct) 26.7 L Arterial Blood pH (Temp corrected) 7.537 H Arterial Blood pO2 (Temp corrected) 74.0 L Blood Gas A-a O2 Differential 108.5 H Blood Gas Actual Respiration Rate 20 Blood Gas Low PEEP Setting 5.0 Blood Gas Modality VENT - AC Blood Gas Notified Time 05/21/2016 7:58:00 AM Blood Gas Notified Whom JLD Blood Gas Respiration Rate 20.0 Blood Gas Specimen Source Blood arterial Blood Gas Temperature 37.0 Blood Gas Tidal Volume 500.0 FiO2 30.0 Oxyhemoglobin Percent 95.1 Total Hemoglobin 10.5 L Medications Current Medications Ondansetron HCl (Zofran Inj) 4 mg Q6H PRN IV NAUSEA AND/OR VOMITING; Start 05/07/16 at 19:30 Morphine Sulfate (morphine) 2 mg Q4H PRN IV SEVERE PAIN LEVEL 7-10 Last administered on 05/08/16at 20:08; Admin Dose 2 MG; Start 05/07/16 at 19:30 Docusate Sodium (Colace) 100 mg Q12H PRN PO CONSTIPATION; Start 05/07/16 at 19: 30 Lorazepam (Ativan) 1 mg Q2 PRN IV AGITATION/ANXIETY; Start 05/09/16 at 16:30 Furosemide (Lasix) 40 mg DAILY@06 IV Last administered on 05/21/16at 06:03; Admin Dose 40 MG; Start 05/10/16 at 14:30 Lactulose (Lactulose Enema) 100 ml Q6 [place] Last administered on 05/21/16at 12:17 ; Admin Dose 100 ML; Start 05/13/16 at 18:00 IV Flush 10 ml 10 ml PRN PRN IV IV PROTOCOL; Start 05/17/16 at 12:00 Propofol 100 ml @ 1.692 mls/ hr Q12H IV Last administered on 05/18/16at 05:21 ; Admin Dose 6.768 MLS/HR; Start 05/17/16 at 13:00 Multivitamins 10 ml/Thiamine HCl 100 mg/Folic Acid 1 mg/Dextrose 1,011.2 ml @ 75 mls/hr DAILY@09 IVPB Last administered on 05/21/16at 08:03; Admin Dose 75 MLS/HR; Start 05/19/16 at 12:00 Octreotide Acetate 500 mcg/ Dextrose 50 ml @ 2.5 mls/hr Q20H IV Last administered on 05/21/16at 00:28; Admin Dose 2.5 MLS/HR; Start 05/19/16 at 12: 00 Pantoprazole 80 mg/Dextrose 100 ml @ 10 mls/hr Q10H IV Last administered on at 06:03; Admin Dose 10 MLS/HR; Start 05/19/16 at 12:00 Ceftriaxone Sodium (Rocephin) 50 ml @ 100 mls/hr Q24H IVPB ; Start 05/21/16 at 15:00 Assessment/Plan Chief Complaint/Hosp Course IMPRESSION AND PLAN: 1. Acute gastrointestinal bleed. 2. Severe anemia. 3. Status post hypotensive shock 4. History of ETOH abuse with esophageal varices and portal hypertension. 5. Resp failure secondary to encephalopathy. 6. Encephalopathy toxic metabolic, repeat ammonia level in a.m. Plan 1. Vent support CPAP trial if patient becomes more alert 2. s/p Emergent endoscopy per GI. Continue recs 3. Transfusion of packed red blood cells keep Hb > 8 4. Correction of coagulopathy. 5. DVT and GI prophylaxis. Prognosis guarded. Patient's son to arrive to help with decision-making Problems: JAMILA TRAVIS MD, [facility] May 21, 2016 15:54
[2016-05-21] MEDS: morphine 2 MG INJ IV PRN (18:01)
[2016-05-22] VITALS (70 sets, daily range): BP systolic 85–129; BP diastolic 57–82; PULSE 76–93; RESP 20–22
[2016-05-22] MEDS: PANTOPRAZOLE IV 80 MG in DEXTROSE 5% 100 ML IV SCH ×3 (01:19→20:04)
[2016-05-22] MEDS: IPRATROPIUM (HFA) 12.9 GM INHALER INH SCH ×4 (02:15→19:11)
[2016-05-22] MEDS: ALBUTEROL HFA 8 GM INHALER INH SCH ×4 (02:16→19:11)
[2016-05-22] MEDS: PROPOFOL 100 ML IV SCH (03:45)
[2016-05-22 04:51] LABS: BASOPHILS % 0.1 % (0.0-2.0); EOSINOPHILS # 0.4 10^3/ul (0.0-0.5); EOSINOPHILS % 2.7 % (0.0-7.0); HEMATOCRIT 25.9 % (42.0-52.0); HEMOGLOBIN 8.5 g/dl (14.0-18.0); LYMPHOCYTES # 1.4 10^3/ul (0.8-2.9); LYMPHOCYTES % 9.8 % (15.0-51.0); MEAN CORPUSCULAR HEMOGLOBIN 29.6 pg (29.0-33.0); MEAN CORPUSCULAR HGB CONC 32.9 g/dl (32.0-37.0); MEAN CORPUSCULAR VOLUME 89.8 fl (82.0-101.0); MEAN PLATELET VOLUME 9.5 fl (7.4-10.4); MONOCYTE # 0.7 10^3/ul (0.3-0.9); MONOCYTES % 5.2 % (0.0-11.0); NEUTROPHIL # 11.8 10^3/ul (1.6-7.5); NEUTROPHILS % 82.2 % (39.0-77.0); PLATELET COUNT 135 10^3/UL (140-440); RED BLOOD COUNT 2.88 10^6/ul (4.70-6.10); RED CELL DISTRIBUTION WIDTH 18.1 % (11.5-14.5); UNCORRECTED WBC 14.4 10^3/ul (4.8-10.8); WHITE BLOOD COUNT 14.4 10^3/ul (4.8-10.8)
[2016-05-22 04:59] LABS: CONDITION 1; LH ANALYZER COMMENTS 1; SUSPECT 1
[2016-05-22 05:00] LABS: POTASSIUM 3.3 mmol/L (3.5-5.1)
[2016-05-22 05:03] LABS: CREATININE 0.72 mg/dl (0.61-1.24)
[2016-05-22 05:04] LABS: CALCIUM 7.9 mg/dl (8.4-10.2)
[2016-05-22] MEDS: LACTULOSE ENEMA 1,000 ML BTL PR SCH ×4 (05:45→23:43)
[2016-05-22] MEDS: FUROSEMIDE 40 MG INJ IV SCH (05:45)
[2016-05-22] MEDS: MULTIVITAMINS IVPB SCH (08:29)
[2016-05-22] MEDS: DEXTROSE 5% IVPB SCH (08:29)
[2016-05-22] MEDS: THIAMINE IVPB SCH (08:29)
[2016-05-22] MEDS: FOLIC ACID IVPB SCH (08:29)
[2016-05-22] MEDS: FENTAnyl 1,000 MCG in DEXTROSE 5% 80 ML IV SCH (09:12)
[2016-05-22] MEDS: MIDAZOLAM 50 MG in DEXTROSE 5% 40 ML IV SCH (09:12)
--- NOTE | 2016-05-22 09:59 | CONS ---
Date/Time of Note Date/Time of Note DATE: 05/22/16 TIME: 09:58 Consult Date/Type/Reason Admit Date/Time May 07, 2016 at 14:39 Type of Consultation: pulmonary Ordering Provider: KASH OLVERA Subjective Patient continues mechanical ventilation Agitation off sedation and possible further seizure activity Not opening eyes or following commands consistently Objective Vital Signs Date Time Temp Pulse Resp B/P Pulse Ox O2 Delivery O2 Flow Rate FiO2 05/22/16 09:15 80 20 113/70 98 Mechanical Ventilator 05/22/16 08:00 98.3 05/22/16 08:00 30 Intake and Output 05/21/16 05/21/16 05/22/16 14:59 22:59 06:59 Intake Total 960.0 ml 578.384 ml 322.804 ml Output Total 700 ml 180 ml 230 ml Balance 260.0 ml 398.384 ml 92.804 ml PHYSICAL EXAMINATION: GENERAL: Elderly gentleman, mostly somnolent on mechanical ventilation. VITAL SIGNS: as above NECK: Supple, no JVD or lymphadenopathy. CARDIAC: S1, S2, no added sounds or murmurs. CHEST: Diminished air entry bilaterally. ABDOMEN: Soft, nontender. No guarding or rebound. EXTREMITIES: No cyanosis, clubbing or edema. NEUROLOGIC: Generalized weakness. Results/Medications Result Diagram: 05/22/16 0400 05/22/16 0400 Results 24 hrs Laboratory Tests Test 05/22/16 04:00 Ammonia 24 Anion Gap 10 Basophils # 0.0 Basophils % 0.1 Blood Morphology Comment Blood Urea Nitrogen 19 Calcium Level 7.9 L Carbon Dioxide Level 23 Chloride Level 112 H Creatinine 0.72 Eosinophils # 0.4 Eosinophils % 2.7 Glucose Level 117 Hematocrit 25.9 L Hemoglobin 8.5 L Lymphocytes # 1.4 Lymphocytes % 9.8 L Mean Corpuscular Hemoglobin 29.6 Mean Corpuscular Hemoglobin Concent 32.9 Mean Corpuscular Volume 89.8 Mean Platelet Volume 9.5 Monocytes # 0.7 Monocytes % 5.2 Neutrophils # 11.8 H Neutrophils % 82.2 H Nucleated Red Blood Cells # 0.0 Nucleated Red Blood Cells % 0.0 Platelet Count 135 L Potassium Level 3.3 L Red Blood Count 2.88 L Red Cell Distribution Width 18.1 H Sodium Level 142 White Blood Count 14.4 H Medications Current Medications Ondansetron HCl (Zofran Inj) 4 mg Q6H PRN IV NAUSEA AND/OR VOMITING; Start 05/07/16 at 19:30 Morphine Sulfate (morphine) 2 mg Q4H PRN IV SEVERE PAIN LEVEL 7-10 Last administered on 05/21/16at 18:01; Admin Dose 2 MG; Start 05/07/16 at 19:30 Docusate Sodium (Colace) 100 mg Q12H PRN PO CONSTIPATION; Start 05/07/16 at 19: 30 Lorazepam (Ativan) 1 mg Q2 PRN IV AGITATION/ANXIETY; Start 05/09/16 at 16:30 Furosemide (Lasix) 40 mg DAILY@06 IV Last administered on 05/22/16at 05:45; Admin Dose 40 MG; Start 05/10/16 at 14:30 Lactulose (Lactulose Enema) 100 ml Q6 [place] Last administered on 05/22/16at 05:45 ; Admin Dose 100 ML; Start 05/13/16 at 18:00 IV Flush 10 ml 10 ml PRN PRN IV IV PROTOCOL; Start 05/17/16 at 12:00 Multivitamins 10 ml/Thiamine HCl 100 mg/Folic Acid 1 mg/Dextrose 1,011.2 ml @ 75 mls/hr DAILY@09 IVPB Last administered on 05/22/16at 08:29; Admin Dose 75 MLS/HR; Start 05/19/16 at 12:00 Octreotide Acetate 500 mcg/ Dextrose 50 ml @ 2.5 mls/hr Q20H IV Last administered on 05/21/16at 19:42; Admin Dose 2.5 MLS/HR; Start 05/19/16 at 12: 00 Pantoprazole 80 mg/Dextrose 100 ml @ 10 mls/hr Q10H IV Last administered on at 01:19; Admin Dose 10 MLS/HR; Start 05/19/16 at 12:00 Ceftriaxone Sodium 50 ml @ 100 mls/hr Q24H IVPB Last administered on at 15:54; Admin Dose 100 MLS/HR; Start 05/21/16 at 15:00 Midazolam HCl 50 mg/Dextrose 50 ml @ 1 mls/hr Q24H IV ; Start 05/22/16 at 09:12 Fentanyl/Dextrose (Sublimaze/D5W) 100 ml @ 2.5 mls/hr Q24H IV ; Start at 09:12 Assessment/Plan Chief Complaint/Hosp Course IMPRESSION AND PLAN: 1. Acute gastrointestinal bleed. Status post endoscopy. 2. Severe anemia. 3. Status post hypotensive shock 4. History of ETOH abuse with esophageal varices and portal hypertension. 5. Resp failure secondary to encephalopathy. 6. Encephalopathy toxic metabolic, ammonia level within normal limits Plan 1. Vent support CPAP trial if patient becomes more alert 2. s/p Emergent endoscopy per GI. Continue recs 3. Transfusion of packed red blood cells keep Hb > 8 4. Correction of coagulopathy. 5. DVT and GI prophylaxis. 6. EEG and neurology evaluation Disposition Overall prognosis remains guarded Problems: JAMILA TRAVIS MD, [facility] May 22, 2016 09:59
[2016-05-22] MEDS ORDERED: POTASSIUM CHLORIDE 250 ML IVPB ONE (14:00)
--- NOTE | 2016-05-22 14:00 | PN ---
Date/Time of Note Date/Time of Note DATE: 05/22/16 TIME: 13:57 Assessment/Plan VTE Prophylaxis VTE Prophylaxis Intervention: SCD's Assessment/Plan Chief Complaint/Hosp Course 1. Respiratory failure on full vent support patient intubated for airway protection during acute GI bleed /commence ventilator weaning/ appreciate pulm input 2. Upper gastrointestinal bleed secondary to esophageal varices GI consult much appreciated, s/p EGD x2 done and patient has multiple esophageal varices and ulcers status post ligation / H an H is still low but stable /Remains on octreotide and Protonix drips 3. Hepatic encephalopathy Continue rectal lactulose / librium D/c / ammonia levels normal x 2 days EEG shows Encephalopathy, CT shows no acute abnormalities 4. Acute on chronic anemia 2/2 Blood loss Monitor 5. Alcohol related liver disease with ascites Continue with Lasix and Aldactone patient will be advised for cessation if/when mentation improves Ongoing social service liaison and CM review 6. Homelessness CM working on placement 7. Leucocytosis + bandemia urine cultures shows Gram neg rods, start Rocephin Dispo: Bioethics consult pending as there is no family and prognosis is poor Prophylaxis: SCDs Problems: Subjective 24 Hr Interval Summary Subjective hx not possible: pt non-verbal Exam/Review of Systems Vital Signs Vitals Vital Signs Date Time Temp Pulse Resp B/P Pulse Ox O2 Delivery O2 Flow Rate FiO2 05/22/16 12:15 82 20 97/64 98 Mechanical Ventilator 05/22/16 12:00 98.6 05/22/16 08:00 30 Intake and Output 05/21/16 05/21/16 05/22/16 15:00 23:00 07:00 Intake Total 960.0 ml 503.384 ml 310.304 ml Output Total 720 ml 190 ml 200 ml Balance 240.0 ml 313.384 ml 110.304 ml Exam Constitutional: non-verbal Respiratory: clear to auscultation Cardiovascular: regular rate and rhythm Gastrointestinal: soft, No distended Musculoskeletal: nl extremities to inspection Results Result Diagram: 05/22/16 0400 05/22/16 0400 Results 24 hrs Laboratory Tests Test 05/22/16 04:00 Ammonia 24 Anion Gap 10 Basophils # 0.0 Basophils % 0.1 Blood Morphology Comment Blood Urea Nitrogen 19 Calcium Level 7.9 L Carbon Dioxide Level 23 Chloride Level 112 H Creatinine 0.72 Eosinophils # 0.4 Eosinophils % 2.7 Glucose Level 117 Hematocrit 25.9 L Hemoglobin 8.5 L Lymphocytes # 1.4 Lymphocytes % 9.8 L Mean Corpuscular Hemoglobin 29.6 Mean Corpuscular Hemoglobin Concent 32.9 Mean Corpuscular Volume 89.8 Mean Platelet Volume 9.5 Monocytes # 0.7 Monocytes % 5.2 Neutrophils # 11.8 H Neutrophils % 82.2 H Nucleated Red Blood Cells # 0.0 Nucleated Red Blood Cells % 0.0 Platelet Count 135 L Potassium Level 3.3 L Red Blood Count 2.88 L Red Cell Distribution Width 18.1 H Sodium Level 142 White Blood Count 14.4 H Medications Medications Current Medications Ondansetron HCl (Zofran Inj) 4 mg Q6H PRN IV NAUSEA AND/OR VOMITING; Start 05/07/16 at 19:30 Morphine Sulfate (morphine) 2 mg Q4H PRN IV SEVERE PAIN LEVEL 7-10 Last administered on 05/21/16at 18:01; Admin Dose 2 MG; Start 05/07/16 at 19:30 Docusate Sodium (Colace) 100 mg Q12H PRN PO CONSTIPATION; Start 05/07/16 at 19: 30 Lorazepam (Ativan) 1 mg Q2 PRN IV AGITATION/ANXIETY; Start 05/09/16 at 16:30 Furosemide (Lasix) 40 mg DAILY@06 IV Last administered on 05/22/16at 05:45; Admin Dose 40 MG; Start 05/10/16 at 14:30 Lactulose (Lactulose Enema) 100 ml Q6 [place] Last administered on 05/22/16at 12:02 ; Admin Dose 100 ML; Start 05/13/16 at 18:00 IV Flush 10 ml 10 ml PRN PRN IV IV PROTOCOL; Start 05/17/16 at 12:00 Multivitamins 10 ml/Thiamine HCl 100 mg/Folic Acid 1 mg/Dextrose 1,011.2 ml @ 75 mls/hr DAILY@09 IVPB Last administered on 05/22/16at 08:29; Admin Dose 75 MLS/HR; Start 05/19/16 at 12:00 Octreotide Acetate 500 mcg/ Dextrose 50 ml @ 2.5 mls/hr Q20H IV Last administered on 05/21/16at 19:42; Admin Dose 2.5 MLS/HR; Start 05/19/16 at 12: 00 Pantoprazole 80 mg/Dextrose 100 ml @ 10 mls/hr Q10H IV Last administered on at 12:02; Admin Dose 10 MLS/HR; Start 05/19/16 at 12:00 Ceftriaxone Sodium 50 ml @ 100 mls/hr Q24H IVPB Last administered on at 15:54; Admin Dose 100 MLS/HR; Start 05/21/16 at 15:00 Midazolam HCl 50 mg/Dextrose 50 ml @ 1 mls/hr Q24H IV ; Start 05/22/16 at 09:12 Fentanyl/Dextrose (Sublimaze/D5W) 100 ml @ 2.5 mls/hr Q24H IV ; Start at 09:12 ZHENG VERA May 22, 2016 13:59
[2016-05-22] MEDS: CEFTRIAXONE 1 GM/50 ML (PMX) 50 ML IVPB SCH (14:30)
[2016-05-22] MEDS: D5W-0.45 NACL + KCL 20 MEQ 1,000 ML IV SCH (14:30)
--- NOTE | 2016-05-22 14:42 | CONS ---
Date/Time of Note Date/Time of Note DATE: 05/22/16 TIME: 14:37 Assessment/Plan Assessment/Plan Chief Complaint/Hosp Course 70 yo male, with alcoholic cirrhosis admitted for upper GI bleed, who on 05/17 was noted to be hypotensive secondary to a drop in HG who subsequently developed a leukocytosis and bandemia, with UCx showing GNR and RCs showing klebsiella. Although bandemia is usually seen with septic shock it can also been seen with hypovolemic shock which may have happened on 05/17. Leukocytosis is also very common with ascites and may be elevated secondary to the peritoneal inflammation. The peripheral smear was reviewed which demonstrated no evidence of malignant cells. -likely reactive from infection, hypovolemic shock, peritoneal inflammation -continue supportive care -continue to follow CBC Problems: Consultation Date/Type/Reason Admit Date/Time May 07, 2016 at 14:39 Initial Consult Date 05/20/16 Type of Consultation: Hematology/Oncology Referring Provider: KASH OLVERA 24 HR Interval Summary Free Text/Dictation Patient remains intubated but not responsive off sedation. Per nurse, patient had some melena but very little. Exam/Review of Systems Vital Signs Vitals Vital Signs Date Time Temp Pulse Resp B/P Pulse Ox O2 Delivery O2 Flow Rate FiO2 05/22/16 14:00 79 20 97/62 99 Mechanical Ventilator 05/22/16 12:00 98.6 05/22/16 08:00 30 Intake and Output 05/21/16 05/21/16 05/22/16 15:00 23:00 07:00 Intake Total 960.0 ml 503.384 ml 310.304 ml Output Total 720 ml 190 ml 200 ml Balance 240.0 ml 313.384 ml 110.304 ml Exam Constitutional: other (intubated, not responsive off sedation) Head: normocephalic Eyes: nl conjunctiva Neck: non-tender, supple Respiratory: clear to auscultation Cardiovascular: regular rate and rhythm Gastrointestinal: distended Musculoskeletal: nl extremities to inspection Results Result Diagram: 05/22/16 0400 05/22/16 0400 Results 24 hrs Laboratory Tests Test 05/22/16 04:00 Ammonia 24 Anion Gap 10 Basophils # 0.0 Basophils % 0.1 Blood Morphology Comment Blood Urea Nitrogen 19 Calcium Level 7.9 L Carbon Dioxide Level 23 Chloride Level 112 H Creatinine 0.72 Eosinophils # 0.4 Eosinophils % 2.7 Glucose Level 117 Hematocrit 25.9 L Hemoglobin 8.5 L Lymphocytes # 1.4 Lymphocytes % 9.8 L Mean Corpuscular Hemoglobin 29.6 Mean Corpuscular Hemoglobin Concent 32.9 Mean Corpuscular Volume 89.8 Mean Platelet Volume 9.5 Monocytes # 0.7 Monocytes % 5.2 Neutrophils # 11.8 H Neutrophils % 82.2 H Nucleated Red Blood Cells # 0.0 Nucleated Red Blood Cells % 0.0 Platelet Count 135 L Potassium Level 3.3 L Red Blood Count 2.88 L Red Cell Distribution Width 18.1 H Sodium Level 142 White Blood Count 14.4 H Medications Medications Current Medications Ondansetron HCl (Zofran Inj) 4 mg Q6H PRN IV NAUSEA AND/OR VOMITING; Start 05/07/16 at 19:30 Morphine Sulfate (morphine) 2 mg Q4H PRN IV SEVERE PAIN LEVEL 7-10 Last administered on 05/21/16at 18:01; Admin Dose 2 MG; Start 05/07/16 at 19:30 Docusate Sodium (Colace) 100 mg Q12H PRN PO CONSTIPATION; Start 05/07/16 at 19: 30 Lorazepam (Ativan) 1 mg Q2 PRN IV AGITATION/ANXIETY; Start 05/09/16 at 16:30 Furosemide (Lasix) 40 mg DAILY@06 IV Last administered on 05/22/16at 05:45; Admin Dose 40 MG; Start 05/10/16 at 14:30 Lactulose (Lactulose Enema) 100 ml Q6 [place] Last administered on 05/22/16at 12:02 ; Admin Dose 100 ML; Start 05/13/16 at 18:00 IV Flush 10 ml 10 ml PRN PRN IV IV PROTOCOL; Start 05/17/16 at 12:00 Octreotide Acetate 500 mcg/ Dextrose 50 ml @ 2.5 mls/hr Q20H IV Last administered on 05/21/16at 19:42; Admin Dose 2.5 MLS/HR; Start 05/19/16 at 12: 00 Pantoprazole 80 mg/Dextrose 100 ml @ 10 mls/hr Q10H IV Last administered on at 12:02; Admin Dose 10 MLS/HR; Start 05/19/16 at 12:00 Ceftriaxone Sodium 50 ml @ 100 mls/hr Q24H IVPB Last administered on at 14:30; Admin Dose 100 MLS/HR; Start 05/21/16 at 15:00 Midazolam HCl 50 mg/Dextrose 50 ml @ 1 mls/hr Q24H IV ; Start 05/22/16 at 09:12 Fentanyl 1000 mcg/ Dextrose 100 ml @ 2.5 mls/hr Q24H IV ; Start 05/22/16 at 09 :12 Potassium Chloride 250 ml @ 62.5 mls/hr ONCE ONCE IVPB Last administered on 05/22/16at 14:18; Admin Dose 62.5 MLS/HR; Start 05/22/16 at 14:00; Stop at 17:59 Potassium Chloride/Dextrose/ Sod Cl (D5-1/2ns + KCl 20 Meq) 1,000 ml @ 50 mls/ hr Q20H IV Last administered on 05/22/16at 14:30; Admin Dose 50 MLS/HR; Start 05/22/16 at 14:30 STANISLAW STERLING MD May 22, 2016 14:42
[2016-05-22] MEDS: OCTREOTIDE 500 MCG in DEXTROSE 5% 49 ML IV SCH (15:00)
[2016-05-23] VITALS (33 sets, daily range): BP systolic 96–140; BP diastolic 62–87; PULSE 78–98; RESP 13–39
[2016-05-23] MEDS: ALBUTEROL HFA 8 GM INHALER INH SCH ×4 (01:01→19:26)
[2016-05-23] MEDS: IPRATROPIUM (HFA) 12.9 GM INHALER INH SCH ×4 (01:01→19:26)
[2016-05-23] MEDS: morphine 2 MG INJ IV PRN (04:03)
[2016-05-23] MEDS: PANTOPRAZOLE IV 80 MG in DEXTROSE 5% 100 ML IV SCH ×3 (04:03→15:44)
[2016-05-23] MEDS: OCTREOTIDE 500 MCG in DEXTROSE 5% 49 ML IV SCH (04:05)
[2016-05-23] MEDS: LACTULOSE ENEMA 1,000 ML BTL PR SCH ×3 (05:54→17:19)
[2016-05-23] MEDS: FUROSEMIDE 40 MG INJ IV SCH (05:54)
[2016-05-23 06:33] LABS: BASOPHILS % 0.1 % (0.0-2.0); EOSINOPHILS # 0.4 10^3/ul (0.0-0.5); EOSINOPHILS % 3.5 % (0.0-7.0); HEMATOCRIT 27.1 % (42.0-52.0); LYMPHOCYTES # 1.4 10^3/ul (0.8-2.9); LYMPHOCYTES % 10.7 % (15.0-51.0); MEAN CORPUSCULAR HEMOGLOBIN 29.8 pg (29.0-33.0); MEAN CORPUSCULAR HGB CONC 33.2 g/dl (32.0-37.0); MEAN CORPUSCULAR VOLUME 89.8 fl (82.0-101.0); MEAN PLATELET VOLUME 10.5 fl (7.4-10.4); MONOCYTE # 0.7 10^3/ul (0.3-0.9); MONOCYTES % 5.5 % (0.0-11.0); NEUTROPHIL # 10.2 10^3/ul (1.6-7.5); NEUTROPHILS % 80.2 % (39.0-77.0); PLATELET COUNT 164 10^3/UL (140-440); RED BLOOD COUNT 3.02 10^6/ul (4.70-6.10); RED CELL DISTRIBUTION WIDTH 17.7 % (11.5-14.5); UNCORRECTED WBC 12.7 10^3/ul (4.8-10.8); WHITE BLOOD COUNT 12.7 10^3/ul (4.8-10.8)
[2016-05-23 06:38] LABS: CONDITION 1; LH ANALYZER COMMENTS 1
[2016-05-23 06:40] LABS: CREATININE 0.67 mg/dl (0.61-1.24)
[2016-05-23 06:41] LABS: CALCIUM 7.6 mg/dl (8.4-10.2); MAGNESIUM 1.8 mg/dl (1.7-2.5)
--- NOTE | 2016-05-23 08:40 | RADRPT ---
PROCEDURE: XR Chest. CLINICAL INDICATION: Shortness of breath. TECHNIQUE: Single frontal view. COMPARISON: 05/21/2016. FINDINGS: The endotracheal tube and left arm PICC line are in satisfactory and unchanged position. There is a telectasis at the lung bases, unchanged. The lungs are otherwise clear. The heart size is normal. There is a small left pleural effusion. There is no right pleural effusion. There is no pneumothorax. IMPRESSION: 1. No change from 05/21/2016. RPTAT: QQ .Omar Moreira MD, MD Date Time Electronically viewed and signed by .Omar Moreira MD, MD on 05/23/2016 08:39 .R/
[2016-05-23] MEDS: FENTAnyl 1,000 MCG in DEXTROSE 5% 80 ML IV SCH (08:49)
[2016-05-23] MEDS: MIDAZOLAM 50 MG in DEXTROSE 5% 40 ML IV SCH (08:49)
[2016-05-23] MEDS: D5W-0.45 NACL + KCL 20 MEQ 1,000 ML IV SCH (10:02)
--- NOTE | 2016-05-23 10:37 | CONS ---
Date/Time of Note Date/Time of Note DATE: 05/23/16 TIME: 10:35 Assessment/Plan Assessment/Plan Chief Complaint/Hosp Course 70 yo male, with alcoholic cirrhosis admitted for upper GI bleed, who on 05/17 was noted to be hypotensive secondary to a drop in HG who subsequently developed a leukocytosis and bandemia, with UCx showing GNR and RCs showing klebsiella. Although bandemia is usually seen with septic shock it can also been seen with hypovolemic shock which may have happened on 05/17. Leukocytosis is also very common with ascites and may be elevated secondary to the peritoneal inflammation. The peripheral smear was reviewed which demonstrated no evidence of malignant cells. -likely reactive from infection, hypovolemic shock, peritoneal inflammation; improving from 14.4 to 12.7 today with decrease in neutrophil percentage slightly to 80.2% -continue supportive care -continue to follow CBC Problems: Consultation Date/Type/Reason Admit Date/Time May 07, 2016 at 14:39 Initial Consult Date 05/20/16 Type of Consultation: Hematology/Oncology Referring Provider: KASH OLVERA 24 HR Interval Summary Free Text/Dictation No significant changes overnight. Exam/Review of Systems Vital Signs Vitals Vital Signs Date Time Temp Pulse Resp B/P Pulse Ox O2 Delivery O2 Flow Rate FiO2 05/23/16 08:41 90 20 98 30 05/23/16 08:00 98.7 96/70 Mechanical Ventilator Intake and Output 05/22/16 05/22/16 05/23/16 14:59 22:59 06:59 Intake Total 550.0 ml 487.5 ml 312.5 ml Output Total 1355 ml 190 ml 180 ml Balance -805.0 ml 297.5 ml 132.5 ml Exam Constitutional: other (intubated, not responsive off sedation) Head: normocephalic Eyes: nl conjunctiva Neck: non-tender, supple Respiratory: clear to auscultation Cardiovascular: regular rate and rhythm Gastrointestinal: distended Musculoskeletal: nl extremities to inspection Results Result Diagram: 05/23/16 0415 05/23/16 0415 Results 24 hrs Laboratory Tests Test 05/23/16 04:15 Anion Gap 12 Basophils # 0.0 Basophils % 0.1 Blood Morphology Comment Blood Urea Nitrogen 16 Calcium Level 7.6 L Carbon Dioxide Level 21 Chloride Level 112 H Creatinine 0.67 Eosinophils # 0.4 Eosinophils % 3.5 Glucose Level 101 Hematocrit 27.1 L Hemoglobin 9.0 L Lymphocytes # 1.4 Lymphocytes % 10.7 L Magnesium Level 1.8 Mean Corpuscular Hemoglobin 29.8 Mean Corpuscular Hemoglobin Concent 33.2 Mean Corpuscular Volume 89.8 Mean Platelet Volume 10.5 H Monocytes # 0.7 Monocytes % 5.5 Neutrophils # 10.2 H Neutrophils % 80.2 H Nucleated Red Blood Cells # 0.0 Nucleated Red Blood Cells % 0.0 Phosphorus Level 3.0 Platelet Count 164 # Potassium Level 3.0 L Red Blood Count 3.02 L Red Cell Distribution Width 17.7 H Sodium Level 142 White Blood Count 12.7 H Medications Medications Current Medications Ondansetron HCl (Zofran Inj) 4 mg Q6H PRN IV NAUSEA AND/OR VOMITING; Start 05/07/16 at 19:30 Morphine Sulfate (morphine) 2 mg Q4H PRN IV SEVERE PAIN LEVEL 7-10 Last administered on 05/23/16at 04:03; Admin Dose 2 MG; Start 05/07/16 at 19:30 Docusate Sodium (Colace) 100 mg Q12H PRN PO CONSTIPATION; Start 05/07/16 at 19: 30 Lorazepam (Ativan) 1 mg Q2 PRN IV AGITATION/ANXIETY; Start 05/09/16 at 16:30 Furosemide (Lasix) 40 mg DAILY@06 IV Last administered on 05/23/16at 05:54; Admin Dose 40 MG; Start 05/10/16 at 14:30 Lactulose (Lactulose Enema) 100 ml Q6 OR Last administered on 05/23/16at 05:54 ; Admin Dose 100 ML; Start 05/13/16 at 18:00 IV Flush 10 ml 10 ml PRN PRN IV IV PROTOCOL; Start 05/17/16 at 12:00 Octreotide Acetate 500 mcg/ Dextrose 50 ml @ 2.5 mls/hr Q20H IV Last administered on 05/23/16at 04:05; Admin Dose 2.5 MLS/HR; Start 05/19/16 at 12: 00 Pantoprazole 80 mg/Dextrose 100 ml @ 10 mls/hr Q10H IV Last administered on at 04:03; Admin Dose 10 MLS/HR; Start 05/19/16 at 12:00 Ceftriaxone Sodium 50 ml @ 100 mls/hr Q24H IVPB Last administered on at 14:30; Admin Dose 100 MLS/HR; Start 05/21/16 at 15:00 Midazolam HCl 50 mg/Dextrose 50 ml @ 1 mls/hr Q24H IV ; Start 05/22/16 at 09:12 Fentanyl 1000 mcg/ Dextrose 100 ml @ 2.5 mls/hr Q24H IV ; Start 05/22/16 at 09 :12 Potassium Chloride/Dextrose/ Sod Cl 1,000 ml @ 50 mls/hr Q20H IV Last administered on 05/23/16at 10:02; Admin Dose 50 MLS/HR; Start 05/22/16 at 14:30 Potassium Chloride (KCl 40 MEQ/250 ML NS) 250 ml @ 62.5 mls/hr Q4H IVPB ; Start 05/23/16 at 10:30; Stop 05/23/16 at 18:29 TOSTANISLAW MD May 23, 2016 10:37
[2016-05-23] MEDS: POTASSIUM CHLORIDE 250 ML IVPB SCH ×2 (11:12→14:56)
--- NOTE | 2016-05-23 14:17 | PN ---
Date/Time of Note Date/Time of Note DATE: 05/23/16 TIME: 14:17 Assessment/Plan VTE Prophylaxis VTE Prophylaxis Intervention: SCD's Assessment/Plan Chief Complaint/Hosp Course 1. Respiratory failure on full vent support patient intubated for airway protection during acute GI bleed /commence ventilator weaning/ appreciate pulm input 2. Upper gastrointestinal bleed secondary to esophageal varices GI consult much appreciated, s/p EGD x2 done and patient has multiple esophageal varices and ulcers status post ligation / H an H is still low but stable /Remains on octreotide and Protonix drips 3. Hepatic encephalopathy Continue rectal lactulose / librium D/c / ammonia levels normal x 2 days EEG shows Encephalopathy, CT shows no acute abnormalities 4. Acute on chronic anemia 2/2 Blood loss Monitor 5. 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 Homelessness CM working on placement 7. Leucocytosis + bandemia urine cultures shows Gram neg rods, start Rocephin Dispo: Bioethics consult pending as there is no family and prognosis is poor Prophylaxis: SCDs Problems: Subjective 24 Hr Interval Summary Subjective hx not possible: pt non-verbal Exam/Review of Systems Vital Signs Vitals Vital Signs Date Time Temp Pulse Resp B/P Pulse Ox O2 Delivery O2 Flow Rate FiO2 05/23/16 14:00 89 19 110/87 100 Mechanical Ventilator 05/23/16 12:00 98.6 05/23/16 08:41 30 Intake and Output 05/22/16 05/22/16 05/23/16 15:00 23:00 07:00 Intake Total 897.5 ml 127.5 ml 312.5 ml Output Total 1375 ml 200 ml 150 ml Balance -477.5 ml -72.5 ml 162.5 ml Exam Constitutional: non-verbal Respiratory: clear to auscultation Cardiovascular: regular rate and rhythm Gastrointestinal: distended, soft Musculoskeletal: nl extremities to inspection Results Result Diagram: 05/23/16 0415 05/23/16 0415 Results 24 hrs Laboratory Tests Test 05/23/16 04:15 Anion Gap 12 Basophils # 0.0 Basophils % 0.1 Blood Morphology Comment Blood Urea Nitrogen 16 Calcium Level 7.6 L Carbon Dioxide Level 21 Chloride Level 112 H Creatinine 0.67 Eosinophils # 0.4 Eosinophils % 3.5 Glucose Level 101 Hematocrit 27.1 L Hemoglobin 9.0 L Lymphocytes # 1.4 Lymphocytes % 10.7 L Magnesium Level 1.8 Mean Corpuscular Hemoglobin 29.8 Mean Corpuscular Hemoglobin Concent 33.2 Mean Corpuscular Volume 89.8 Mean Platelet Volume 10.5 H Monocytes # 0.7 Monocytes % 5.5 Neutrophils # 10.2 H Neutrophils % 80.2 H Nucleated Red Blood Cells # 0.0 Nucleated Red Blood Cells % 0.0 Phosphorus Level 3.0 Platelet Count 164 # Potassium Level 3.0 L Red Blood Count 3.02 L Red Cell Distribution Width 17.7 H Sodium Level 142 White Blood Count 12.7 H Medications Medications Current Medications Ondansetron HCl (Zofran Inj) 4 mg Q6H PRN IV NAUSEA AND/OR VOMITING; Start 05/07/16 at 19:30 Morphine Sulfate (morphine) 2 mg Q4H PRN IV SEVERE PAIN LEVEL 7-10 Last administered on 05/23/16at 04:03; Admin Dose 2 MG; Start 05/07/16 at 19:30 Docusate Sodium (Colace) 100 mg Q12H PRN PO CONSTIPATION; Start 05/07/16 at 19: 30 Lorazepam (Ativan) 1 mg Q2 PRN IV AGITATION/ANXIETY; Start 05/09/16 at 16:30 Furosemide (Lasix) 40 mg DAILY@06 IV Last administered on 05/23/16at 05:54; Admin Dose 40 MG; Start 05/10/16 at 14:30 Lactulose (Lactulose Enema) 100 ml Q6 SD Last administered on 05/23/16at 12:22 ; Admin Dose 100 ML; Start 05/13/16 at 18:00 IV Flush 10 ml 10 ml PRN PRN IV IV PROTOCOL; Start 05/17/16 at 12:00 Octreotide Acetate 500 mcg/ Dextrose 50 ml @ 2.5 mls/hr Q20H IV Last administered on 05/23/16at 04:05; Admin Dose 2.5 MLS/HR; Start 05/19/16 at 12: 00 Pantoprazole 80 mg/Dextrose 100 ml @ 10 mls/hr Q10H IV Last administered on at 04:03; Admin Dose 10 MLS/HR; Start 05/19/16 at 12:00 Ceftriaxone Sodium 50 ml @ 100 mls/hr Q24H IVPB Last administered on at 14:30; Admin Dose 100 MLS/HR; Start 05/21/16 at 15:00 Midazolam HCl 50 mg/Dextrose 50 ml @ 1 mls/hr Q24H IV ; Start 05/22/16 at 09:12 Fentanyl 1000 mcg/ Dextrose 100 ml @ 2.5 mls/hr Q24H IV ; Start 05/22/16 at 09 :12 Potassium Chloride/Dextrose/ Sod Cl 1,000 ml @ 50 mls/hr Q20H IV Last administered on 05/23/16at 10:02; Admin Dose 50 MLS/HR; Start 05/22/16 at 14:30 Potassium Chloride (KCl 40 MEQ/250 ML NS) 250 ml @ 62.5 mls/hr Q4H IVPB Last administered on 05/23/16at 11:12; Admin Dose 62.5 MLS/HR; Start 05/23/16 at 10: 30; Stop 05/23/16 at 18:29 ZHENG VERA May 23, 2016 14:17
[2016-05-23] MEDS: CEFTRIAXONE 1 GM/50 ML (PMX) 50 ML IVPB SCH (14:58)
--- NOTE | 2016-05-23 21:56 | SP ---
DATE OF PROCEDURE: 05/22/2016 PROCEDURE: Electroencephalogram. INDICATION: A 70-year-old gentleman with encephalopathy, history of alcohol abuse. No history of s eizures. DESCRIPTION OF PROCEDURE: Routine EEG was recorded digitally. [id number] and vwxhp-dj-[id number] ingris ages were recorded and reviewed. All impedances were measured and recorded. Cap electrodes were pl aced in accordance with International 10-20 system of electrode placement. FINDINGS: Symmetrically distributed background activity of low to medium amplitude ranging in frequ ency between 4 to 6 cycles per second was seen essentially throughout the recording. No definite ep ileptiform transients were seen. No signs of ongoing electrographic seizures or lateralized slowing . No response to photic stimulation. IMPRESSION: Abnormal study secondary to background slowing which could reflect encephalopathy. Thi s finding is nonspecific, could be toxic metabolic in etiology. Please correlate clinically. Dictated By: APURVA BURGESS/STEVE Conf#: [id number] DID#: [id number]
[2016-05-24] VITALS (31 sets, daily range): BP systolic 109–143; BP diastolic 71–99; PULSE 72–98; RESP 20–24
[2016-05-24] MEDS: IPRATROPIUM (HFA) 12.9 GM INHALER INH SCH ×4 (01:05→19:43)
[2016-05-24] MEDS: ALBUTEROL HFA 8 GM INHALER INH SCH ×4 (01:05→19:43)
[2016-05-24] MEDS: LACTULOSE ENEMA 1,000 ML BTL PR SCH ×4 (01:39→17:31)
[2016-05-24] MEDS: PANTOPRAZOLE IV 80 MG in DEXTROSE 5% 100 ML IV SCH ×3 (01:40→21:02)
[2016-05-24] MEDS: OCTREOTIDE 500 MCG in DEXTROSE 5% 49 ML IV SCH ×2 (01:41→22:18)
[2016-05-24] MEDS: FUROSEMIDE 40 MG INJ IV SCH (05:29)
[2016-05-24] MEDS: D5W-0.45 NACL + KCL 20 MEQ 1,000 ML IV SCH (05:34)
[2016-05-24 05:37] LABS: HEMATOCRIT 22.5 % (42.0-52.0); HEMOGLOBIN 7.7 g/dl (14.0-18.0); MEAN CORPUSCULAR HEMOGLOBIN 34.1 pg (29.0-33.0); MEAN CORPUSCULAR HGB CONC 34.2 g/dl (32.0-37.0); MEAN CORPUSCULAR VOLUME 99.7 fl (82.0-101.0); MEAN PLATELET VOLUME 11.1 fl (7.4-10.4); PLATELET COUNT 198 10^3/UL (140-440); RED BLOOD COUNT 2.26 10^6/ul (4.70-6.10); RED CELL DISTRIBUTION WIDTH 24.8 % (11.5-14.5); UNCORRECTED WBC 27.8 10^3/ul (4.8-10.8); WHITE BLOOD COUNT 27.8 10^3/ul (4.8-10.8)
[2016-05-24 05:39] LABS: POTASSIUM 3.8 mmol/L (3.5-5.1)
[2016-05-24 05:41] LABS: CREATININE 0.49 mg/dl (0.61-1.24)
[2016-05-24 05:52] LABS: CONDITION 1; LH ANALYZER COMMENTS 1; SUSPECT 1
--- NOTE | 2016-05-24 08:32 | CONS ---
Date/Time of Note Date/Time of Note DATE: 05/24/16 TIME: 08:31 Assessment/Plan Assessment/Plan Chief Complaint/Hosp Course 70 yo male, with alcoholic cirrhosis admitted for upper GI bleed, who on 05/17 was noted to be hypotensive secondary to a drop in HG who subsequently developed a leukocytosis and bandemia, with UCx showing GNR and RCs showing klebsiella and branhamella catarrhalis. Although bandemia is usually seen with septic shock it can also been seen with hypovolemic shock which may have happened on 05/17. Leukocytosis is also very common with ascites and may be elevated secondary to the peritoneal inflammation. The peripheral smear was reviewed which demonstrated no evidence of malignant cells. -likely reactive from infection, hypovolemic shock, peritoneal inflammation. Continue to monitor. If repeat CBC confirms increased WBC/bands, would recommend repeating cultures. -anemia secondary to GIB, decreased from 9.0 to 7.7 today, ?melena. Repeat CBC , if remains low would transfuse < 8 and call GI. -continue supportive care -continue to follow CBC Problems: Consultation Date/Type/Reason Admit Date/Time May 07, 2016 at 14:39 Initial Consult Date 05/20/16 Type of Consultation: Hematology/Oncology Referring Provider: KASH OLVERA 24 HR Interval Summary Free Text/Dictation Patient now following some commands. Hemoglobin lower at 7.7 and WBC increased to 27.8, will re draw CBC. Nurse reports some melena but difficult to quantify. Exam/Review of Systems Vital Signs Vitals Vital Signs Date Time Temp Pulse Resp B/P Pulse Ox O2 Delivery O2 Flow Rate FiO2 05/24/16 08:00 30 05/24/16 06:00 87 20 121/81 99 Mechanical Ventilator 05/24/16 05:00 98.7 Intake and Output 05/23/16 05/23/16 05/24/16 14:59 22:59 06:59 Intake Total 700.0 ml 800.0 ml 437.5 ml Output Total 1070 ml 820 ml 435 ml Balance -370.0 ml -20.0 ml 2.5 ml Exam Constitutional: other (intubated, not responsive off sedation) Head: normocephalic Eyes: nl conjunctiva Neck: non-tender, supple Respiratory: clear to auscultation Cardiovascular: regular rate and rhythm Gastrointestinal: distended Musculoskeletal: nl extremities to inspection Results Result Diagram: 05/24/16 0430 05/24/16 0430 Results 24 hrs Laboratory Tests Test 05/24/16 04:30 Anion Gap 11 Basophils # Pending Basophils % Pending Blood Morphology Comment Blood Urea Nitrogen 25 H Calcium Level 7.0 L Carbon Dioxide Level 28 Chloride Level 103 Creatinine 0.49 L Eosinophils # Pending Eosinophils % Pending Glucose Level 96 Hematocrit 22.5 L Hemoglobin 7.7 L Lymphocytes # Pending Lymphocytes % Pending Mean Corpuscular Hemoglobin 34.1 H Mean Corpuscular Hemoglobin Concent 34.2 Mean Corpuscular Volume 99.7 Mean Platelet Volume 11.1 H Monocytes # Pending Monocytes % Pending Neutrophils # Pending Neutrophils % Pending Nucleated Red Blood Cells # Pending Nucleated Red Blood Cells % Pending Platelet Count 198 # Potassium Level 3.8 Red Blood Count 2.26 #L Red Cell Distribution Width 24.8 #H Sodium Level 138 White Blood Count 27.8 #H Medications Medications Current Medications Ondansetron HCl (Zofran Inj) 4 mg Q6H PRN IV NAUSEA AND/OR VOMITING; Start 05/07/16 at 19:30 Morphine Sulfate (morphine) 2 mg Q4H PRN IV SEVERE PAIN LEVEL 7-10 Last administered on 05/23/16at 04:03; Admin Dose 2 MG; Start 05/07/16 at 19:30 Docusate Sodium (Colace) 100 mg Q12H PRN PO CONSTIPATION; Start 05/07/16 at 19: 30 Lorazepam (Ativan) 1 mg Q2 PRN IV AGITATION/ANXIETY; Start 05/09/16 at 16:30 Furosemide (Lasix) 40 mg DAILY@06 IV Last administered on 05/24/16at 05:29; Admin Dose 40 MG; Start 05/10/16 at 14:30 Lactulose (Lactulose Enema) 100 ml Q6 OR Last administered on 05/24/16at 05:29 ; Admin Dose 100 ML; Start 05/13/16 at 18:00 IV Flush 10 ml 10 ml PRN PRN IV IV PROTOCOL; Start 05/17/16 at 12:00 Octreotide Acetate 500 mcg/ Dextrose 50 ml @ 2.5 mls/hr Q20H IV Last administered on 05/24/16at 01:41; Admin Dose 2.5 MLS/HR; Start 05/19/16 at 12: 00 Pantoprazole 80 mg/Dextrose 100 ml @ 10 mls/hr Q10H IV Last administered on at 01:40; Admin Dose 10 MLS/HR; Start 05/19/16 at 12:00 Ceftriaxone Sodium 50 ml @ 100 mls/hr Q24H IVPB Last administered on at 14:58; Admin Dose 100 MLS/HR; Start 05/21/16 at 15:00 Midazolam HCl 50 mg/Dextrose 50 ml @ 1 mls/hr Q24H IV ; Start 05/22/16 at 09:12 Fentanyl 1000 mcg/ Dextrose 100 ml @ 2.5 mls/hr Q24H IV ; Start 05/22/16 at 09 :12 Potassium Chloride/Dextrose/ Sod Cl (D5-1/2ns + KCl 20 Meq) 1,000 ml @ 50 mls/ hr Q20H IV Last administered on 05/24/16at 05:34; Admin Dose 50 MLS/HR; Start 05/22/16 at 14:30 STANISLAW STERLING MD May 24, 2016 08:32
[2016-05-24] MEDS: MIDAZOLAM 50 MG in DEXTROSE 5% 40 ML IV SCH (09:12)
[2016-05-24] MEDS: FENTAnyl 1,000 MCG in DEXTROSE 5% 80 ML IV SCH (09:12)
[2016-05-24 09:39] LABS: BASOPHILS % 0.2 % (0.0-2.0); EOSINOPHILS # 0.4 10^3/ul (0.0-0.5); EOSINOPHILS % 3.2 % (0.0-7.0); HEMATOCRIT 28.4 % (42.0-52.0); HEMOGLOBIN 9.3 g/dl (14.0-18.0); LYMPHOCYTES # 2.2 10^3/ul (0.8-2.9); LYMPHOCYTES % 16.8 % (15.0-51.0); MEAN CORPUSCULAR HEMOGLOBIN 29.7 pg (29.0-33.0); MEAN CORPUSCULAR HGB CONC 32.8 g/dl (32.0-37.0); MEAN CORPUSCULAR VOLUME 90.7 fl (82.0-101.0); MEAN PLATELET VOLUME 9.5 fl (7.4-10.4); MONOCYTE # 0.7 10^3/ul (0.3-0.9); MONOCYTES % 5.6 % (0.0-11.0); NEUTROPHIL # 9.5 10^3/ul (1.6-7.5); NEUTROPHILS % 74.2 % (39.0-77.0); PLATELET COUNT 209 10^3/UL (140-440); RED BLOOD COUNT 3.13 10^6/ul (4.70-6.10); RED CELL DISTRIBUTION WIDTH 17.8 % (11.5-14.5); UNCORRECTED WBC 12.9 10^3/ul (4.8-10.8); WHITE BLOOD COUNT 12.9 10^3/ul (4.8-10.8)
[2016-05-24 10:20] LABS: CONDITION 1; LH ANALYZER COMMENTS 1
[2016-05-24 10:45] LABS: LYMPHOCYTES # 1.1 10^3/ul (0.8-2.9); MONOCYTE # 1.4 10^3/ul (0.3-0.9); MYELOCYTES # 0.3
--- NOTE | 2016-05-24 14:08 | PN ---
Date/Time of Note Date/Time of Note DATE: 05/24/16 TIME: 14:06 Assessment/Plan VTE Prophylaxis VTE Prophylaxis Intervention: SCD's Assessment/Plan Chief Complaint/Hosp Course 1. Respiratory failure on full vent support secondary to hepatic encephalopathy patient intubated for airway protection during acute GI bleed / ventilator weaning/ appreciate pulm input 2. Upper gastrointestinal bleed secondary to esophageal varices GI consult much appreciated, s/p EGD x2 done and patient has multiple esophageal varices and ulcers status post ligation / H an H is still low but stable /Remains on octreotide and Protonix drips 3. Hepatic encephalopathy Continue rectal lactulose / librium D/c / ammonia levels normal x 2 days EEG shows Encephalopathy, CT shows no acute abnormalities 4. Acute on chronic anemia 2/2 Blood loss Monitor 5. 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 Homelessness CM working on placement 7. Leucocytosis + bandemia urine cultures shows Gram neg rods, start Rocephin Dispo: Bioethics consult pending as there is no family and prognosis is poor Prophylaxis: SCDs Problems: Subjective 24 Hr Interval Summary Subjective hx not possible: pt non-verbal Exam/Review of Systems Vital Signs Vitals Vital Signs Date Time Temp Pulse Resp B/P Pulse Ox O2 Delivery O2 Flow Rate FiO2 05/24/16 12:00 98.0 98 20 124/96 99 Mechanical Ventilator 05/24/16 08:00 30 Intake and Output 05/23/16 05/23/16 05/24/16 15:00 23:00 07:00 Intake Total 875.0 ml 687.5 ml 387.5 ml Output Total 1120 ml 805 ml 600 ml Balance -245.0 ml -117.5 ml -212.5 ml Exam Constitutional: non-verbal ENMT: intubated Respiratory: clear to auscultation Cardiovascular: regular rate and rhythm Gastrointestinal: distended, soft Musculoskeletal: nl extremities to inspection Results Result Diagram: 05/24/16 0930 05/24/16 0430 Results 24 hrs Laboratory Tests Test 05/24/16 04:30 05/24/16 09:30 Anion Gap 11 Basophils # 0.0 Basophils % 0.2 Blood Morphology Comment Blood Urea Nitrogen 25 H Calcium Level 7.0 L Carbon Dioxide Level 28 Chloride Level 103 Creatinine 0.49 L Differential Comment MANUAL DIFF Eosinophils # 0.4 Eosinophils % 3.2 Glucose Level 96 Hematocrit 22.5 L 28.4 #L Hemoglobin 7.7 L 9.3 #L Lymphocytes # 1.1 2.2 Lymphocytes % 4.0 L 16.8 Mean Corpuscular Hemoglobin 34.1 H 29.7 Mean Corpuscular Hemoglobin Concent 34.2 32.8 Mean Corpuscular Volume 99.7 90.7 Mean Platelet Volume 11.1 H 9.5 Monocytes # 1.4 H 0.7 Monocytes % 5.0 5.6 Myelocytes # 0.3 Myelocytes % 1.0 H Neutrophils # 25.0 H 9.5 H Neutrophils % 90.0 H 74.2 Nucleated Red Blood Cells # 0.0 Nucleated Red Blood Cells % 0.0 Platelet Count 198 # 209 Potassium Level 3.8 Red Blood Count 2.26 #L 3.13 #L Red Cell Distribution Width 24.8 #H 17.8 #H Sodium Level 138 White Blood Count 27.8 #H 12.9 #H Medications Medications Current Medications Ondansetron HCl (Zofran Inj) 4 mg Q6H PRN IV NAUSEA AND/OR VOMITING; Start 05/07/16 at 19:30 Morphine Sulfate (morphine) 2 mg Q4H PRN IV SEVERE PAIN LEVEL 7-10 Last administered on 05/23/16at 04:03; Admin Dose 2 MG; Start 05/07/16 at 19:30 Docusate Sodium (Colace) 100 mg Q12H PRN PO CONSTIPATION; Start 05/07/16 at 19: 30 Lorazepam (Ativan) 1 mg Q2 PRN IV AGITATION/ANXIETY; Start 05/09/16 at 16:30 Furosemide (Lasix) 40 mg DAILY@06 IV Last administered on 05/24/16at 05:29; Admin Dose 40 MG; Start 05/10/16 at 14:30 Lactulose (Lactulose Enema) 100 ml Q6 WV Last administered on 05/24/16at 11:16 ; Admin Dose 100 ML; Start 05/13/16 at 18:00 IV Flush 10 ml 10 ml PRN PRN IV IV PROTOCOL; Start 05/17/16 at 12:00 Octreotide Acetate 500 mcg/ Dextrose 50 ml @ 2.5 mls/hr Q20H IV Last administered on 05/24/16at 01:41; Admin Dose 2.5 MLS/HR; Start 05/19/16 at 12: 00 Pantoprazole 80 mg/Dextrose 100 ml @ 10 mls/hr Q10H IV Last administered on at 11:16; Admin Dose 10 MLS/HR; Start 05/19/16 at 12:00 Ceftriaxone Sodium 50 ml @ 100 mls/hr Q24H IVPB Last administered on at 14:58; Admin Dose 100 MLS/HR; Start 05/21/16 at 15:00 Midazolam HCl 50 mg/Dextrose 50 ml @ 1 mls/hr Q24H IV ; Start 05/22/16 at 09:12 Fentanyl 1000 mcg/ Dextrose 100 ml @ 2.5 mls/hr Q24H IV ; Start 05/22/16 at 09 :12 Total Parenteral Nutrition (Tpn) 1,000 ml @ 40 mls/hr Q24H IV ; Start at 15:00 Diagnostic Test (Pha) (Accucheck) 1 ea Q4 XX ; Start 05/24/16 at 15:00 ZHENG VERA May 24, 2016 14:08
[2016-05-24] MEDS: ACCUCHECK XX SCH ×3 (15:00→21:07)
[2016-05-24] MEDS: CEFTRIAXONE 1 GM/50 ML (PMX) 50 ML IVPB SCH (15:10)
[2016-05-24] MEDS: TPN 1,000 ML IV SCH (15:35)
[2016-05-24] MEDS ORDERED: TPN 1,000 ML IV SCH (16:00)
[2016-05-25] VITALS (32 sets, daily range): BP systolic 92–145; BP diastolic 61–92; PULSE 72–96; RESP 13–30
[2016-05-25] MEDS: LACTULOSE ENEMA 1,000 ML BTL PR SCH ×4 (00:27→17:27)
[2016-05-25] MEDS: ACCUCHECK XX SCH ×6 (00:27→21:00)
[2016-05-25] MEDS: IPRATROPIUM (HFA) 12.9 GM INHALER INH SCH ×4 (00:53→20:18)
[2016-05-25] MEDS: ALBUTEROL HFA 8 GM INHALER INH SCH ×4 (00:53→20:18)
[2016-05-25 05:19] LABS: AADO2 Arterial 102.4 mmHg (7.0-24.0); Arterial Base Excess -1.7 mmol/L (-3.0-3); Arterial COHb 0.3 % (0.0-3.0); Arterial MetHb 0.1 % (0.0-1.5); Arterial Total Hemglobin 10.1 g/dl (12.0-18.0); MODE VENT - AC
[2016-05-25] MEDS: FUROSEMIDE 40 MG INJ IV SCH (05:47)
[2016-05-25 06:41] LABS: BASOPHILS % 0.2 % (0.0-2.0); EOSINOPHILS # 0.4 10^3/ul (0.0-0.5); EOSINOPHILS % 3.7 % (0.0-7.0); HEMATOCRIT 27.3 % (42.0-52.0); HEMOGLOBIN 8.9 g/dl (14.0-18.0); LYMPHOCYTES # 1.3 10^3/ul (0.8-2.9); LYMPHOCYTES % 11.8 % (15.0-51.0); MEAN CORPUSCULAR HEMOGLOBIN 29.3 pg (29.0-33.0); MEAN CORPUSCULAR HGB CONC 32.5 g/dl (32.0-37.0); MEAN CORPUSCULAR VOLUME 90.1 fl (82.0-101.0); MEAN PLATELET VOLUME 9.9 fl (7.4-10.4); MONOCYTE # 0.6 10^3/ul (0.3-0.9); MONOCYTES % 5.6 % (0.0-11.0); NEUTROPHIL # 8.6 10^3/ul (1.6-7.5); NEUTROPHILS % 78.7 % (39.0-77.0); PLATELET COUNT 234 10^3/UL (140-440); RED BLOOD COUNT 3.03 10^6/ul (4.70-6.10); RED CELL DISTRIBUTION WIDTH 17.5 % (11.5-14.5)
[2016-05-25 07:04] LABS: CONDITION 1; LH ANALYZER COMMENTS 1
[2016-05-25 07:08] LABS: ALBUMIN 2.1 g/dl (3.3-4.9)
[2016-05-25 07:09] LABS: POTASSIUM 3.5 mmol/L (3.5-5.1)
[2016-05-25 07:11] LABS: ALBUMIN/GLOBULIN RATIO 0.46; BILIRUBIN,INDIRECT 0.5 mg/dl (0-1.1); BILIRUBIN,TOTAL 0.5 mg/dl (0.2-1.3); CREATININE 0.6 mg/dl (0.61-1.24); TOTAL PROTEIN 6.6 g/dl (6.1-8.1)
[2016-05-25 07:12] LABS: CALCIUM 7.8 mg/dl (8.4-10.2); MAGNESIUM 1.9 mg/dl (1.7-2.5); PHOSPHORUS 2.8 mg/dl (2.5-4.9)
[2016-05-25 07:19] LABS: PREALBUMIN 3.7 mg/dl (17.6-36.0)
[2016-05-25] MEDS: PANTOPRAZOLE IV 80 MG in DEXTROSE 5% 100 ML IV SCH ×2 (07:47→17:27)
--- NOTE | 2016-05-25 08:52 | RADRPT ---
PROCEDURE: XR Chest 1 View. CLINICAL INDICATION: Shortness of breath, GI bleed, EtOH. TECHNIQUE: AP view of the chest were obtained. COMPARISON: May 23, 2016 FINDINGS: The heart size is within normal limits. Calcified atherosclerosis is noted in the aorta. Endotrache al tube is stable. Left-sided central line is unchanged. The lungs are hypoinflated. Elevation ri ght hemidiaphragm is identified. Patchy atelectasis versus infiltrates continue be identified scatte red throughout the right lung. Retrocardiac opacity is unchanged. Osseous structures are stable. IMPRESSION: Calcified atherosclerosis in the aorta. Stable elevation right hemidiaphragm. Stable patchy atelectasis versus mild infiltrates scattered throughout the right lung. Stable retrocardiac opacity that may reflect left lower lobe atelectasis or infiltrate combined with moderate pleural effusion. RPTAT: AA .Alexander Marcelo MD, Date Time Electronically viewed and signed by .Alexander Marcelo MD, on 05/25/2016 08:52 .P/
[2016-05-25] MEDS: FENTAnyl 1,000 MCG in DEXTROSE 5% 80 ML IV SCH (09:07)
[2016-05-25] MEDS: MIDAZOLAM 50 MG in DEXTROSE 5% 40 ML IV SCH (09:07)
[2016-05-25] MEDS: PIPER-TAZO 3.375 GM IV (PMX) 100 ML IVPB SCH ×2 (13:48→21:29)
--- NOTE | 2016-05-25 13:56 | PN ---
Date/Time of Note Date/Time of Note DATE: 05/25/16 TIME: 13:54 Assessment/Plan VTE Prophylaxis VTE Prophylaxis Intervention: anti-embolic stocking Lines/Catheters IV Catheter Type (from Nrsg): PICC Line Central line still needed: Yes Urinary Cath still in place: Yes Reason Cath still needed: urinary retention Assessment/Plan Assessment/Plan 70 yo male, with alcoholic cirrhosis admitted for upper GI bleed, who on 05/17 was noted to be hypotensive secondary to a drop in HG who subsequently developed a leukocytosis and bandemia, with UCx showing GNR and RCs showing klebsiella and branhamella catarrhalis. Although bandemia is usually seen with septic shock it can also been seen with hypovolemic shock which may have happened on 05/17. Leukocytosis is also very common with ascites and may be elevated secondary to the peritoneal inflammation. The peripheral smear was reviewed which demonstrated no evidence of malignant cells. -likely reactive from infection, hypovolemic shock, peritoneal inflammation. Continue to monitor. If repeat CBC confirms increased WBC/bands, would recommend repeating cultures. -anemia secondary to GIB, stable at 8.9, ?melena. Repeat CBC, if remains low would transfuse < 8 and call GI. -continue supportive care -continue to follow CBC with wbc improving, follow as needed Subjective 24 Hr Interval Summary Subjective hx not possible: pt critical status Constitutional: no complaints Exam/Review of Systems Vital Signs Vitals Vital Signs Date Time Temp Pulse Resp B/P Pulse Ox O2 Delivery O2 Flow Rate FiO2 05/25/16 12:25 30 05/25/16 12:00 86 20 131/74 100 Mechanical Ventilator 05/25/16 07:00 98.7 Intake and Output 05/24/16 05/24/16 05/25/16 15:00 23:00 07:00 Intake Total 97.5 ml 460.0 ml 410.0 ml Output Total 600 ml 615 ml 940 ml Balance -502.5 ml -155.0 ml -530.0 ml Exam Constitutional: distress, non-verbal Eyes: nl conjunctiva Neck: supple Respiratory: normal air movement Cardiovascular: regular rate and rhythm Results Result Diagram: 05/25/16 0400 05/25/16 0400 Results 24 hrs Laboratory Tests Test 05/24/16 17:30 05/24/16 21:03 05/25/16 00:42 05/25/16 04:00 Bedside Glucose 101 116 115 Alanine Aminotransferase (ALT/SGPT) 46 Albumin 2.1 L Albumin/Globulin Ratio 0.46 Alkaline Phosphatase 192 H Anion Gap 11 Aspartate Amino Transf (AST/SGOT) 66 H Basophils # 0.0 Basophils % 0.2 Blood Morphology Comment Blood Urea Nitrogen 14 # Calcium Level 7.8 L Carbon Dioxide Level 22 Chloride Level 112 H Creatinine 0.60 L Direct Bilirubin 0.00 Eosinophils # 0.4 Eosinophils % 3.7 Globulin 4.50 H Glucose Level 112 Hematocrit 27.3 L Hemoglobin 8.9 L Indirect Bilirubin 0.5 Lymphocytes # 1.3 Lymphocytes % 11.8 L Magnesium Level 1.9 Mean Corpuscular Hemoglobin 29.3 Mean Corpuscular Hemoglobin Concent 32.5 Mean Corpuscular Volume 90.1 Mean Platelet Volume 9.9 Monocytes # 0.6 Monocytes % 5.6 Neutrophils # 8.6 H Neutrophils % 78.7 H Nucleated Red Blood Cells # 0.0 Nucleated Red Blood Cells % 0.0 Phosphorus Level 2.8 Platelet Count 234 Potassium Level 3.5 Prealbumin 3.7 L Red Blood Count 3.03 L Red Cell Distribution Width 17.5 H Sodium Level 141 Total Bilirubin 0.5 Total Protein 6.6 Triglycerides Level 102 White Blood Count 11.0 H Test 05/25/16 05:00 05/25/16 05:47 05/25/16 09:04 05/25/16 12:58 Arterial Blood HCO3 20.0 L Arterial Blood Base Excess -1.7 Arterial Blood Oxygen Saturation 96.4 Tejinder Test N/A Arterial Blood Gas Puncture Site Right Brachial Arterial Blood Carboxyhemoglobin 0.3 Arterial Blood Date Drawn 05/25/2016 5:00:13 AM Arterial Blood Methemoglobin 0.1 Arterial Blood pCO2 (Temp correct) 24.6 L Arterial Blood pH (Temp corrected) 7.527 H Arterial Blood pO2 (Temp corrected) 82.6 Blood Gas A-a O2 Differential 102.4 H Blood Gas Actual Respiration Rate 20 Blood Gas Inspiratory Pressure 28.0 Blood Gas Low PEEP Setting 5.0 Blood Gas Modality VENT - AC Blood Gas Notified Time 05/25/2016 5:19:10 AM Blood Gas Notified Whom KM Blood Gas Respiration Rate 20.0 Blood Gas Specimen Source Blood arterial Blood Gas Temperature 37.0 Blood Gas Tidal Volume 500.0 FiO2 30.0 Oxyhemoglobin Percent 96.0 Total Hemoglobin 10.1 L Bedside Glucose 101 118 108 Medications Medications Current Medications Ondansetron HCl (Zofran Inj) 4 mg Q6H PRN IV NAUSEA AND/OR VOMITING; Start 05/07/16 at 19:30 Morphine Sulfate (morphine) 2 mg Q4H PRN IV SEVERE PAIN LEVEL 7-10 Last administered on 05/23/16at 04:03; Admin Dose 2 MG; Start 05/07/16 at 19:30 Docusate Sodium (Colace) 100 mg Q12H PRN PO CONSTIPATION; Start 05/07/16 at 19: 30 Lorazepam (Ativan) 1 mg Q2 PRN IV AGITATION/ANXIETY; Start 05/09/16 at 16:30 Furosemide (Lasix) 40 mg DAILY@06 IV Last administered on 05/25/16at 05:47; Admin Dose 40 MG; Start 05/10/16 at 14:30 Lactulose (Lactulose Enema) 100 ml Q6 [place] Last administered on 05/25/16at 12:19 ; Admin Dose 100 ML; Start 05/13/16 at 18:00 IV Flush 10 ml 10 ml PRN PRN IV IV PROTOCOL; Start 05/17/16 at 12:00 Octreotide Acetate 500 mcg/ Dextrose 50 ml @ 2.5 mls/hr Q20H IV Last administered on 05/24/16at 22:18; Admin Dose 2.5 MLS/HR; Start 05/19/16 at 12: 00 Pantoprazole 80 mg/Dextrose 100 ml @ 10 mls/hr Q10H IV Last administered on at 07:47; Admin Dose 10 MLS/HR; Start 05/19/16 at 12:00 Midazolam HCl 50 mg/Dextrose 50 ml @ 1 mls/hr Q24H IV ; Start 05/22/16 at 09:12 Fentanyl 1000 mcg/ Dextrose 100 ml @ 2.5 mls/hr Q24H IV ; Start 05/22/16 at 09 :12 Total Parenteral Nutrition (Tpn) 1,000 ml @ 40 mls/hr Q24H IV Last administered on 05/24/16at 15:35; Admin Dose 40 MLS/HR; Start 05/24/16 at 15:00 Diagnostic Test (Pha) 1 ea 1 ea Q4 XX Last administered on 05/25/16at 12:59; Admin Dose 1 EA; Start 05/24/16 at 15:00 Piperacillin Sod/ Tazobactam Sod (Zosyn 3.375gm/ 100 ml (Pmx)) 100 ml @ 200 mls /hr Q8 IVPB Last administered on 05/25/16at 13:48; Admin Dose 200 MLS/HR; Start 05/25/16 at 14:00 SHIV BRANCH MD May 25, 2016 13:56
[2016-05-25] MEDS: TPN 1,000 ML IV SCH ×2 (15:00→16:43)
--- NOTE | 2016-05-25 17:20 | PN ---
Date/Time of Note Date/Time of Note DATE: 05/25/16 TIME: 17:13 Assessment/Plan VTE Prophylaxis VTE Prophylaxis Intervention: SCD's Assessment/Plan Chief Complaint/Hosp Course 1. Respiratory failure on full vent support secondary to hepatic encephalopathy patient intubated for airway protection during acute GI bleed / ventilator weaning/ appreciate pulm input 2. Upper gastrointestinal bleed secondary to esophageal varices GI consult much appreciated, s/p EGD x2 done and patient has multiple esophageal varices and ulcers status post ligation / H an H is still low but stable /Remains on octreotide and Protonix drips 3. Hepatic encephalopathy Continue rectal lactulose / librium D/c EEG shows Encephalopathy, CT shows no acute abnormalities 4. Acute on chronic anemia 2/2 Blood loss Monitor 5. Alcohol related liver disease with ascites Continue with Lasix and Aldactone patient will be advised for cessation if/when mentation improves Ongoing director social and CM review 6. Homelessness CM working on placement 7. Leucocytosis + bandemia urine cultures shows Gram neg rods, start Rocephin Dispo: Bioethics consult pending as there is no family and prognosis is poor Prophylaxis: SCDs Problems: Subjective 24 Hr Interval Summary Subjective hx not possible: pt non-verbal Exam/Review of Systems Vital Signs Vitals Vital Signs Date Time Temp Pulse Resp B/P Pulse Ox O2 Delivery O2 Flow Rate FiO2 05/25/16 17:00 72 16 112/80 100 Mechanical Ventilator 05/25/16 14:00 30 05/25/16 13:00 98.0 Intake and Output 05/24/16 05/24/16 05/25/16 14:59 22:59 06:59 Intake Total 97.5 ml 422.5 ml 417.5 ml Output Total 770 ml 605 ml 580 ml Balance -672.5 ml -182.5 ml -162.5 ml Exam Constitutional: non-verbal ENMT: intubated Respiratory: clear to auscultation Cardiovascular: regular rate and rhythm Gastrointestinal: soft Musculoskeletal: nl extremities to inspection Results Result Diagram: 05/25/16 0400 05/25/16 0400 Results 24 hrs Laboratory Tests Test 05/24/16 17:30 05/24/16 21:03 05/25/16 00:42 05/25/16 04:00 Bedside Glucose 101 116 115 Alanine Aminotransferase (ALT/SGPT) 46 Albumin 2.1 L Albumin/Globulin Ratio 0.46 Alkaline Phosphatase 192 H Anion Gap 11 Aspartate Amino Transf (AST/SGOT) 66 H Basophils # 0.0 Basophils % 0.2 Blood Morphology Comment Blood Urea Nitrogen 14 # Calcium Level 7.8 L Carbon Dioxide Level 22 Chloride Level 112 H Creatinine 0.60 L Direct Bilirubin 0.00 Eosinophils # 0.4 Eosinophils % 3.7 Globulin 4.50 H Glucose Level 112 Hematocrit 27.3 L Hemoglobin 8.9 L Indirect Bilirubin 0.5 Lymphocytes # 1.3 Lymphocytes % 11.8 L Magnesium Level 1.9 Mean Corpuscular Hemoglobin 29.3 Mean Corpuscular Hemoglobin Concent 32.5 Mean Corpuscular Volume 90.1 Mean Platelet Volume 9.9 Monocytes # 0.6 Monocytes % 5.6 Neutrophils # 8.6 H Neutrophils % 78.7 H Nucleated Red Blood Cells # 0.0 Nucleated Red Blood Cells % 0.0 Phosphorus Level 2.8 Platelet Count 234 Potassium Level 3.5 Prealbumin 3.7 L Red Blood Count 3.03 L Red Cell Distribution Width 17.5 H Sodium Level 141 Total Bilirubin 0.5 Total Protein 6.6 Triglycerides Level 102 White Blood Count 11.0 H Test 05/25/16 05:00 05/25/16 05:47 05/25/16 09:04 05/25/16 12:58 Arterial Blood HCO3 20.0 L Arterial Blood Base Excess -1.7 Arterial Blood Oxygen Saturation 96.4 Tejinder Test N/A Arterial Blood Gas Puncture Site Right Brachial Arterial Blood Carboxyhemoglobin 0.3 Arterial Blood Date Drawn 05/25/2016 5:00:13 AM Arterial Blood Methemoglobin 0.1 Arterial Blood pCO2 (Temp correct) 24.6 L Arterial Blood pH (Temp corrected) 7.527 H Arterial Blood pO2 (Temp corrected) 82.6 Blood Gas A-a O2 Differential 102.4 H Blood Gas Actual Respiration Rate 20 Blood Gas Inspiratory Pressure 28.0 Blood Gas Low PEEP Setting 5.0 Blood Gas Modality VENT - AC Blood Gas Notified Time 05/25/2016 5:19:10 AM Blood Gas Notified Whom KM Blood Gas Respiration Rate 20.0 Blood Gas Specimen Source Blood arterial Blood Gas Temperature 37.0 Blood Gas Tidal Volume 500.0 FiO2 30.0 Oxyhemoglobin Percent 96.0 Total Hemoglobin 10.1 L Bedside Glucose 101 118 108 Medications Medications Current Medications Ondansetron HCl (Zofran Inj) 4 mg Q6H PRN IV NAUSEA AND/OR VOMITING; Start 05/07/16 at 19:30 Morphine Sulfate (morphine) 2 mg Q4H PRN IV SEVERE PAIN LEVEL 7-10 Last administered on 05/23/16at 04:03; Admin Dose 2 MG; Start 05/07/16 at 19:30 Docusate Sodium (Colace) 100 mg Q12H PRN PO CONSTIPATION; Start 05/07/16 at 19: 30 Lorazepam (Ativan) 1 mg Q2 PRN IV AGITATION/ANXIETY; Start 05/09/16 at 16:30 Furosemide (Lasix) 40 mg DAILY@06 IV Last administered on 05/25/16at 05:47; Admin Dose 40 MG; Start 05/10/16 at 14:30 Lactulose (Lactulose Enema) 100 ml Q6 [place] Last administered on 05/25/16at 12:19 ; Admin Dose 100 ML; Start 05/13/16 at 18:00 IV Flush 10 ml 10 ml PRN PRN IV IV PROTOCOL; Start 05/17/16 at 12:00 Octreotide Acetate 500 mcg/ Dextrose 50 ml @ 2.5 mls/hr Q20H IV Last administered on 05/24/16at 22:18; Admin Dose 2.5 MLS/HR; Start 05/19/16 at 12: 00 Pantoprazole 80 mg/Dextrose 100 ml @ 10 mls/hr Q10H IV Last administered on at 07:47; Admin Dose 10 MLS/HR; Start 05/19/16 at 12:00 Midazolam HCl 50 mg/Dextrose 50 ml @ 1 mls/hr Q24H IV ; Start 05/22/16 at 09:12 Fentanyl 1000 mcg/ Dextrose 100 ml @ 2.5 mls/hr Q24H IV ; Start 05/22/16 at 09 :12 Total Parenteral Nutrition (Tpn) 1,000 ml @ 40 mls/hr Q24H IV Last administered on 05/25/16at 16:43; Admin Dose 40 MLS/HR; Start 05/24/16 at 15:00 Diagnostic Test (Pha) 1 ea 1 ea Q4 XX Last administered on 05/25/16at 16:45; Admin Dose 1 EA; Start 05/24/16 at 15:00 Piperacillin Sod/ Tazobactam Sod (Zosyn 3.375gm/ 100 ml (Pmx)) 100 ml @ 200 mls /hr Q8 IVPB Last administered on 05/25/16at 13:48; Admin Dose 200 MLS/HR; Start 05/25/16 at 14:00 ZHENG VERA May 25, 2016 17:20
[2016-05-25] MEDS: OCTREOTIDE 500 MCG in DEXTROSE 5% 49 ML IV SCH (19:20)
[2016-05-26] VITALS (46 sets, daily range): BP systolic 88–128; BP diastolic 54–88; PULSE 70–98; RESP 13–36
[2016-05-26] MEDS: LACTULOSE ENEMA 1,000 ML BTL PR SCH ×4 (00:15→14:40)
[2016-05-26] MEDS: ACCUCHECK XX SCH ×6 (01:00→20:47)
[2016-05-26] MEDS: IPRATROPIUM (HFA) 12.9 GM INHALER INH SCH ×4 (01:17→20:25)
[2016-05-26] MEDS: ALBUTEROL HFA 8 GM INHALER INH SCH ×4 (01:18→20:25)
[2016-05-26] MEDS: PANTOPRAZOLE IV 80 MG in DEXTROSE 5% 100 ML IV SCH ×2 (04:15→14:21)
[2016-05-26 05:41] LABS: HEMATOCRIT 25.7 % (42.0-52.0); HEMOGLOBIN 8.6 g/dl (14.0-18.0); MEAN CORPUSCULAR HEMOGLOBIN 30.3 pg (29.0-33.0); MEAN CORPUSCULAR HGB CONC 33.4 g/dl (32.0-37.0); MEAN CORPUSCULAR VOLUME 90.9 fl (82.0-101.0); MEAN PLATELET VOLUME 9.2 fl (7.4-10.4); PLATELET COUNT 223 10^3/UL (140-440); RED BLOOD COUNT 2.83 10^6/ul (4.70-6.10); RED CELL DISTRIBUTION WIDTH 18.2 % (11.5-14.5); UNCORRECTED WBC 10.4 10^3/ul (4.8-10.8); WHITE BLOOD COUNT 10.4 10^3/ul (4.8-10.8)
[2016-05-26 05:45] LABS: POTASSIUM 3.6 mmol/L (3.5-5.1)
[2016-05-26] MEDS: FUROSEMIDE 40 MG INJ IV SCH (05:47)
[2016-05-26] MEDS: PIPER-TAZO 3.375 GM IV (PMX) 100 ML IVPB SCH ×3 (05:47→21:38)
[2016-05-26 05:48] LABS: CALCIUM 7.7 mg/dl (8.4-10.2); CREATININE 0.58 mg/dl (0.61-1.24); PHOSPHORUS 3.1 mg/dl (2.5-4.9)
[2016-05-26 05:49] LABS: MAGNESIUM 1.8 mg/dl (1.7-2.5)
[2016-05-26 05:51] LABS: CONDITION 1; LH ANALYZER COMMENTS 1
--- NOTE | 2016-05-26 08:07 | RADRPT ---
PROCEDURE: XR Chest. CLINICAL INDICATION: Respiratory failure. GI bleed. TECHNIQUE: Portable single view of the chest COMPARISON: 05/25 FINDINGS: Since the prior study, there has been no significant interval change in the appearance of the heart or lungs or position of tubes and lines allowing for slight differences in technique and positioning . Shallow lung volumes with bibasilar atelectasis again seen. Endotracheal tube remains 1.5 cm from the erasto, accentuated by lordotic positioning and shallow lung volumes. IMPRESSION: No significant interval change. Bibasilar atelectasis. Endotracheal tube 1.5 cm from the erasto. RPTAT: [facility]BE Physician Katty Date Time Electronically viewed and signed by Bing Joens Physician on 05/26/2016 08:07 LE/
[2016-05-26 08:35] LABS: ANISOCYTOSIS 1+; EOSINOPHILS # 0.3 10^3/ul (0.0-0.5); HYPOCHROMASIA 2+; LYMPHOCYTES # 0.3 10^3/ul (0.8-2.9); MONOCYTE # 0.1 10^3/ul (0.3-0.9); NEUTROPHIL # 9.7 10^3/ul (1.6-7.5); PLATELET ESTIMATE PLT APPEAR ADEQUATE; POIKILOCYTOSIS 1+
[2016-05-26] MEDS: MIDAZOLAM 50 MG in DEXTROSE 5% 40 ML IV SCH (09:12)
[2016-05-26] MEDS: FENTAnyl 1,000 MCG in DEXTROSE 5% 80 ML IV SCH (09:12)
[2016-05-26 09:19] LABS: AADO2 Arterial 102.8 mmHg (7.0-24.0); Arterial Base Excess 1.1 mmol/L (-3.0-3); Arterial COHb 0.7 % (0.0-3.0); Arterial Fraction of Oxyhgb 94.5 % (93.0-99.0); Arterial HCO3 23.6 mmol/L (22.0-26.0); Arterial MetHb 0.2 % (0.0-1.5); Arterial Total Hemglobin 14.7 g/dl (12.0-18.0); Blood Gas PS 15; MODE VENT - SIMV
[2016-05-26] MEDS: OCTREOTIDE 500 MCG in DEXTROSE 5% 49 ML IV SCH (12:30)
--- NOTE | 2016-05-26 13:15 | PN ---
Date/Time of Note Date/Time of Note DATE: 05/26/16 TIME: 13:10 Assessment/Plan VTE Prophylaxis VTE Prophylaxis Intervention: SCD's Assessment/Plan Chief Complaint/Hosp Course 1. Respiratory failure on full vent support secondary to hepatic encephalopathy patient intubated for airway protection during acute GI bleed / ventilator weaning/ appreciate pulm input 2. Upper gastrointestinal bleed secondary to esophageal varices GI consult much appreciated, s/p EGD x2 done and patient has multiple esophageal varices and ulcers status post ligation / H an H is still low but stable /Remains on octreotide and Protonix drips 3. Hepatic encephalopathy Continue rectal lactulose / librium D/c EEG shows Encephalopathy, CT shows no acute abnormalities 4. Acute on chronic anemia 2/2 Blood loss Monitor 5. Alcohol related liver disease with ascites Continue with Lasix and Aldactone patient will be advised for cessation if/when mentation improves Ongoing social media coordinator and CM review 6. Homelessness CM working on placement 7. Leucocytosis + bandemia urine cultures shows Gram neg rods, start Rocephin Dispo: Bioethics consult pending as there is no family and prognosis is poor Prophylaxis: SCDs Problems: Subjective 24 Hr Interval Summary Subjective hx not possible: pt non-verbal Exam/Review of Systems Vital Signs Vitals Vital Signs Date Time Temp Pulse Resp B/P Pulse Ox O2 Delivery O2 Flow Rate FiO2 05/26/16 13:00 79 16 88/61 99 Mechanical Ventilator 05/26/16 12:00 98.0 05/26/16 08:32 30 Intake and Output 05/25/16 05/25/16 05/26/16 15:00 23:00 07:00 Intake Total 520.0 ml 560.0 ml 520.0 ml Output Total 325 ml 165 ml 1260 ml Balance 195.0 ml 395.0 ml -740.0 ml Exam Constitutional: non-verbal ENMT: intubated Respiratory: clear to auscultation Cardiovascular: regular rate and rhythm Gastrointestinal: soft, No distended Musculoskeletal: nl extremities to inspection Results Result Diagram: 05/26/16 0425 05/26/16 0425 Results 24 hrs Laboratory Tests Test 05/25/16 16:45 05/25/16 20:33 05/26/16 01:26 05/26/16 04:25 Bedside Glucose 112 109 100 Anion Gap 13 Anisocytosis 1+ Blood Morphology Comment Blood Urea Nitrogen 16 Calcium Level 7.7 L Carbon Dioxide Level 23 Chloride Level 108 Creatinine 0.58 L Eosinophils # 0.3 Eosinophils % 3.0 Giant Platelets FEW Glucose Level 109 Hematocrit 25.7 L Hemoglobin 8.6 L Hypochromasia 2+ Lymphocytes # 0.3 L Lymphocytes % 3.0 L Magnesium Level 1.8 Mean Corpuscular Hemoglobin 30.3 Mean Corpuscular Hemoglobin Concent 33.4 Mean Corpuscular Volume 90.9 Mean Platelet Volume 9.2 Monocytes # 0.1 L Monocytes % 1.0 Neutrophils # 9.7 H Neutrophils % 93.0 H Phosphorus Level 3.1 Platelet Count 223 Platelet Estimate PLT APPEAR ADEQUATE Potassium Level 3.6 Red Blood Count 2.83 L Red Cell Distribution Width 18.2 H Sodium Level 140 White Blood Count 10.4 Test 05/26/16 04:34 05/26/16 07:00 05/26/16 10:06 Bedside Glucose 94 106 Arterial Blood HCO3 23.6 Arterial Blood Base Excess 1.1 Arterial Blood Oxygen Saturation 95.4 Tejinder Test N/A Arterial Blood Gas Puncture Site Right Brachial Arterial Blood Carboxyhemoglobin 0.7 Arterial Blood Date Drawn 05/26/2016 8:30:21 AM Arterial Blood Methemoglobin 0.2 Arterial Blood pCO2 (Temp correct) 31.5 L Arterial Blood pH (Temp corrected) 7.492 H Arterial Blood pO2 (Temp corrected) 74.1 L Blood Gas A-a O2 Differential 102.8 H Blood Gas Actual Respiration Rate 20 Blood Gas Low PEEP Setting 5.0 Blood Gas Modality VENT - SIMV Blood Gas Notified Time 05/26/2016 9:18:11 AM Blood Gas Notified Whom CW Blood Gas Pressure Support 15 Blood Gas Respiration Rate 8.0 Blood Gas Specimen Source Blood arterial Blood Gas Temperature 37.0 Blood Gas Tidal Volume 500.0 FiO2 30.0 Oxyhemoglobin Percent 94.5 Total Hemoglobin 14.7 Medications Medications Current Medications Ondansetron HCl (Zofran Inj) 4 mg Q6H PRN IV NAUSEA AND/OR VOMITING; Start 05/07/16 at 19:30 Morphine Sulfate (morphine) 2 mg Q4H PRN IV SEVERE PAIN LEVEL 7-10 Last administered on 05/23/16at 04:03; Admin Dose 2 MG; Start 05/07/16 at 19:30 Docusate Sodium (Colace) 100 mg Q12H PRN PO CONSTIPATION; Start 05/07/16 at 19: 30 Lorazepam (Ativan) 1 mg Q2 PRN IV AGITATION/ANXIETY; Start 05/09/16 at 16:30 Furosemide (Lasix) 40 mg DAILY@06 IV Last administered on 05/26/16at 05:47; Admin Dose 40 MG; Start 05/10/16 at 14:30 Lactulose (Lactulose Enema) 100 ml Q6 [place] Last administered on 05/26/16at 05:47 ; Admin Dose 100 ML; Start 05/13/16 at 18:00 IV Flush 10 ml 10 ml PRN PRN IV IV PROTOCOL; Start 05/17/16 at 12:00 Octreotide Acetate 500 mcg/ Dextrose 50 ml @ 2.5 mls/hr Q20H IV Last administered on 05/25/16at 19:20; Admin Dose 2.5 MLS/HR; Start 05/19/16 at 12: 00 Pantoprazole 80 mg/Dextrose 100 ml @ 10 mls/hr Q10H IV Last administered on at 04:15; Admin Dose 10 MLS/HR; Start 05/19/16 at 12:00 Midazolam HCl 50 mg/Dextrose 50 ml @ 1 mls/hr Q24H IV ; Start 05/22/16 at 09:12 Fentanyl 1000 mcg/ Dextrose 100 ml @ 2.5 mls/hr Q24H IV ; Start 05/22/16 at 09 :12 Total Parenteral Nutrition (Tpn) 1,000 ml @ 40 mls/hr Q24H IV Last administered on 05/25/16 16:43; Admin Dose 40 MLS/HR; Start 05/24/16 at 15:00 Diagnostic Test (Pha) 1 ea 1 ea Q4 XX Last administered on 05/26/16at 12:23; Admin Dose 1 EA; Start 05/24/16 at 15:00 Piperacillin Sod/ Tazobactam Sod (Zosyn 3.375gm/ 100 ml (Pmx)) 100 ml @ 200 mls /hr Q8 IVPB Last administered on 05/26/16at 05:47; Admin Dose 200 MLS/HR; Start 05/25/16 at 14:00 ZHENG VERA May 26, 2016 13:15
[2016-05-26] MEDS: TPN 1,000 ML IV SCH (16:01)
[2016-05-27] VITALS (40 sets, daily range): BP systolic 84–125; BP diastolic 58–76; PULSE 69–97; RESP 12–28
[2016-05-27] MEDS: LACTULOSE ENEMA 1,000 ML BTL PR SCH ×4 (00:28→18:43)
[2016-05-27] MEDS: PANTOPRAZOLE IV 80 MG in DEXTROSE 5% 100 ML IV SCH ×3 (00:28→20:59)
[2016-05-27] MEDS: ACCUCHECK XX SCH ×6 (00:32→20:59)
[2016-05-27] MEDS: ALBUTEROL HFA 8 GM INHALER INH SCH ×2 (01:27→09:19)
[2016-05-27] MEDS: IPRATROPIUM (HFA) 12.9 GM INHALER INH SCH ×2 (01:27→09:19)
[2016-05-27 04:52] LABS: EOSINOPHILS # 0.3 10^3/ul (0.0-0.5); EOSINOPHILS % 2.9 % (0.0-7.0); HEMATOCRIT 26.6 % (42.0-52.0); HEMOGLOBIN 8.7 g/dl (14.0-18.0); LYMPHOCYTES # 1.5 10^3/ul (0.8-2.9); LYMPHOCYTES % 14.4 % (15.0-51.0); MEAN CORPUSCULAR HEMOGLOBIN 29.7 pg (29.0-33.0); MEAN CORPUSCULAR HGB CONC 32.5 g/dl (32.0-37.0); MEAN CORPUSCULAR VOLUME 91.3 fl (82.0-101.0); MEAN PLATELET VOLUME 9.2 fl (7.4-10.4); MONOCYTE # 0.6 10^3/ul (0.3-0.9); MONOCYTES % 5.9 % (0.0-11.0); NEUTROPHIL # 7.9 10^3/ul (1.6-7.5); NEUTROPHILS % 76.8 % (39.0-77.0); PLATELET COUNT 263 10^3/UL (140-440); RED BLOOD COUNT 2.92 10^6/ul (4.70-6.10); RED CELL DISTRIBUTION WIDTH 17.7 % (11.5-14.5); UNCORRECTED WBC 10.3 10^3/ul (4.8-10.8); WHITE BLOOD COUNT 10.3 10^3/ul (4.8-10.8)
[2016-05-27 04:58] LABS: POTASSIUM 3.5 mmol/L (3.5-5.1)
[2016-05-27 05:01] LABS: CREATININE 0.58 mg/dl (0.61-1.24)
[2016-05-27 05:02] LABS: CALCIUM 7.9 mg/dl (8.4-10.2)
[2016-05-27 05:08] LABS: CONDITION 1; LH ANALYZER COMMENTS 1
[2016-05-27] MEDS: PIPER-TAZO 3.375 GM IV (PMX) 100 ML IVPB SCH ×3 (05:34→21:11)
[2016-05-27] MEDS: FUROSEMIDE 40 MG INJ IV SCH (05:35)
[2016-05-27] MEDS: MIDAZOLAM 50 MG in DEXTROSE 5% 40 ML IV SCH (12:30)
[2016-05-27] MEDS: FENTAnyl 1,000 MCG in DEXTROSE 5% 80 ML IV SCH (12:30)
[2016-05-27] MEDS: OCTREOTIDE 500 MCG in DEXTROSE 5% 49 ML IV SCH ×3 (12:34)
[2016-05-27] MEDS: ALBUTEROL 0.5% (NEB) 2.5 MG/0.5 ML AMP HHN SCH ×2 (15:11→19:45)
[2016-05-27] MEDS: IPRATROPIUM (NEB) 0.5 MG/2.5 ML AMP HHN SCH ×2 (15:11→19:45)
[2016-05-27] MEDS: ACETYLCYSTEINE 20% 4 ML VIAL NEB SCH ×2 (15:11→19:45)
[2016-05-27] MEDS: TPN 1,000 ML IV SCH (16:12)
--- NOTE | 2016-05-27 19:34 | PN ---
Date/Time of Note Date/Time of Note DATE: 05/27/16 TIME: 19:29 Assessment/Plan VTE Prophylaxis VTE Prophylaxis Intervention: contraindicated VTE Contraindication Reason: blood coagulation disorder, bleeding Lines/Catheters IV [facility] P[facility] Line Urinary Cath still in place: Yes Assessment/Plan Chief Complaint/Hosp Course A/P 1. Ac Resp failure; airway protection/ encephalopathy; mod stable; cont vent 2. Upper GiB/ esophageal varices; sp EGD x2; sp ligation; octreotide/ppi drip 3. Hepatic encephalopathy; lactulose/librium 4. Ac/ chr anemia 2/2 Blood loss 5. Etoh liver dz (ascites/ coagulopathy/ varices) 6. Homelessness/ Ftt 7. Leucocytosis + bandemia- urine cx +; Rocephin -Dispo: Bioethics consult pending as there is no family and prognosis is poor Problems: Subjective 24 Hr Interval Summary Free Text/Dictation remains on vent. follows 1 step commands intermittantly. tolerating tpn. no active bleeding. no family. Exam/Review of Systems Vital Signs Vitals Vital Signs Date Time Temp Pulse Resp B/P Pulse Ox O2 Delivery O2 Flow Rate FiO2 05/27/16 18:00 77 22 104/60 100 Mechanical Ventilator 05/27/16 17:18 30 05/27/16 17:00 98.3 Intake and Output 05/26/16 05/26/16 05/27/16 14:59 22:59 06:59 Intake Total 420.0 ml 540.0 ml 520.0 ml Output Total 2270 ml 980 ml 170 ml Balance -1850.0 ml -440.0 ml 350.0 ml Exam ENMT: intubated Respiratory: clear to auscultation Cardiovascular: regular rate and rhythm Gastrointestinal: non-tender (nd; no r r g), soft Extremities: other (no edema) Results Result Diagram: 05/27/16 0400 05/27/16 0400 Results 24 hrs Laboratory Tests Test 05/26/16 20:47 05/27/16 00:30 05/27/16 04:00 05/27/16 05:33 Bedside Glucose 115 120 105 Anion Gap 14 Basophils # 0.0 Basophils % 0.0 Blood Morphology Comment Blood Urea Nitrogen 16 Calcium Level 7.9 L Carbon Dioxide Level 26 Chloride Level 106 Creatinine 0.58 L Eosinophils # 0.3 Eosinophils % 2.9 Glucose Level 98 Hematocrit 26.6 L Hemoglobin 8.7 L Lymphocytes # 1.5 Lymphocytes % 14.4 L Mean Corpuscular Hemoglobin 29.7 Mean Corpuscular Hemoglobin Concent 32.5 Mean Corpuscular Volume 91.3 Mean Platelet Volume 9.2 Monocytes # 0.6 Monocytes % 5.9 Neutrophils # 7.9 H Neutrophils % 76.8 Nucleated Red Blood Cells # 0.0 Nucleated Red Blood Cells % 0.0 Platelet Count 263 Potassium Level 3.5 Red Blood Count 2.92 L Red Cell Distribution Width 17.7 H Sodium Level 142 White Blood Count 10.3 Test 05/27/16 08:24 05/27/16 12:31 05/27/16 16:14 Bedside Glucose 111 124 115 Medications Medications Current Medications Ondansetron HCl (Zofran Inj) 4 mg Q6H PRN IV NAUSEA AND/OR VOMITING; Start 05/07/16 at 19:30 Morphine Sulfate (morphine) 2 mg Q4H PRN IV SEVERE PAIN LEVEL 7-10 Last administered on 05/23/16at 04:03; Admin Dose 2 MG; Start 05/07/16 at 19:30 Docusate Sodium (Colace) 100 mg Q12H PRN PO CONSTIPATION; Start 05/07/16 at 19: 30 Lorazepam (Ativan) 1 mg Q2 PRN IV AGITATION/ANXIETY; Start 05/09/16 at 16:30 Furosemide (Lasix) 40 mg DAILY@06 IV Last administered on 05/27/16at 05:35; Admin Dose 40 MG; Start 05/10/16 at 14:30 Lactulose (Lactulose Enema) 100 ml Q6 [place] Last administered on 05/27/16at 18:43 ; Admin Dose 100 ML; Start 05/13/16 at 18:00 IV Flush 10 ml 10 ml PRN PRN IV IV PROTOCOL; Start 05/17/16 at 12:00 Octreotide Acetate 500 mcg/ Dextrose 50 ml @ 2.5 mls/hr Q20H IV Last administered on 05/27/16at 12:34; Admin Dose 2.5 MLS/HR; Start 05/19/16 at 12: 00 Pantoprazole 80 mg/Dextrose 100 ml @ 10 mls/hr Q10H IV Last administered on at 09:03; Admin Dose 10 MLS/HR; Start 05/19/16 at 12:00 Midazolam HCl 50 mg/Dextrose 50 ml @ 1 mls/hr Q24H IV ; Start 05/22/16 at 09:12 Fentanyl 1000 mcg/ Dextrose 100 ml @ 2.5 mls/hr Q24H IV ; Start 05/22/16 at 09 :12 Total Parenteral Nutrition (Tpn) 1,000 ml @ 40 mls/hr Q24H IV Last administered on 05/27/16at 16:12; Admin Dose 40 MLS/HR; Start 05/24/16 at 15:00 Diagnostic Test (Pha) 1 ea 1 ea Q4 XX Last administered on 05/27/16at 05:32; Admin Dose 1 EA; Start 05/24/16 at 15:00 Piperacillin Sod/ Tazobactam Sod (Zosyn 3.375gm/ 100 ml (Pmx)) 100 ml @ 200 mls /hr Q8 IVPB Last administered on 05/27/16at 13:00; Admin Dose 200 MLS/HR; Start 05/25/16 at 14:00 CAROLINA TY MD May 27, 2016 19:34
[2016-05-28] VITALS (43 sets, daily range): BP systolic 85–139; BP diastolic 53–87; PULSE 80–106; RESP 17–33
[2016-05-28] MEDS: ACCUCHECK XX SCH ×4 (00:44→17:30)
[2016-05-28] MEDS: LACTULOSE ENEMA 1,000 ML BTL PR SCH ×3 (00:44→20:49)
[2016-05-28] MEDS: ACETYLCYSTEINE 20% 4 ML VIAL NEB SCH ×3 (01:53→15:14)
[2016-05-28] MEDS: IPRATROPIUM (NEB) 0.5 MG/2.5 ML AMP HHN SCH ×3 (01:53→15:14)
[2016-05-28] MEDS: ALBUTEROL 0.5% (NEB) 2.5 MG/0.5 ML AMP HHN SCH ×3 (01:53→15:14)
[2016-05-28 05:13] LABS: AADO2 Arterial 85.3 mmHg (7.0-24.0); Allen Test ACCEPTAB; Arterial Base Excess 2.2 mmol/L (-3.0-3); Arterial COHb 0 % (0.0-3.0); Arterial Fraction of Oxyhgb 96.2 % (93.0-99.0); Arterial MetHb 0.1 % (0.0-1.5); Arterial Total Hemglobin 11.1 g/dl (12.0-18.0); Blood Gas PS 10; MODE VENT - PSV
[2016-05-28 05:24] LABS: INR 1.44; POTASSIUM 3.8 mmol/L (3.5-5.1); PROTIME 17.6 Sec (12.2-14.2); PT RATIO 1.4
[2016-05-28 05:25] LABS: EOSINOPHILS # 0.2 10^3/ul (0.0-0.5); EOSINOPHILS % 2.3 % (0.0-7.0); HEMATOCRIT 24.5 % (42.0-52.0); HEMOGLOBIN 8.2 g/dl (14.0-18.0); LYMPHOCYTES # 0.9 10^3/ul (0.8-2.9); MEAN CORPUSCULAR HEMOGLOBIN 30.6 pg (29.0-33.0); MEAN CORPUSCULAR HGB CONC 33.6 g/dl (32.0-37.0); MEAN CORPUSCULAR VOLUME 90.9 fl (82.0-101.0); MEAN PLATELET VOLUME 9.1 fl (7.4-10.4); MONOCYTE # 0.8 10^3/ul (0.3-0.9); MONOCYTES % 7.4 % (0.0-11.0); NEUTROPHIL # 8.4 10^3/ul (1.6-7.5); NEUTROPHILS % 81.3 % (39.0-77.0); PARTIAL THROMBOPLASTIN TIME 42.7 Sec (25.0-35.0); PLATELET COUNT 253 10^3/UL (140-440); RED BLOOD COUNT 2.69 10^6/ul (4.70-6.10); RED CELL DISTRIBUTION WIDTH 17.6 % (11.5-14.5); UNCORRECTED WBC 10.4 10^3/ul (4.8-10.8); WHITE BLOOD COUNT 10.4 10^3/ul (4.8-10.8)
[2016-05-28] MEDS: PANTOPRAZOLE IV 80 MG in DEXTROSE 5% 100 ML IV SCH ×2 (05:25→16:53)
[2016-05-28] MEDS: PIPER-TAZO 3.375 GM IV (PMX) 100 ML IVPB SCH ×2 (05:25→13:55)
[2016-05-28] MEDS: OCTREOTIDE 500 MCG in DEXTROSE 5% 49 ML IV SCH (05:25)
[2016-05-28 05:27] LABS: CREATININE 0.53 mg/dl (0.61-1.24)
[2016-05-28 05:28] LABS: MAGNESIUM 1.9 mg/dl (1.7-2.5); PHOSPHORUS 3.1 mg/dl (2.5-4.9)
[2016-05-28 05:31] LABS: ALBUMIN 2.1 g/dl (3.3-4.9); POTASSIUM 3.6 mmol/L (3.5-5.1)
[2016-05-28 05:34] LABS: ALBUMIN/GLOBULIN RATIO 0.46; BILIRUBIN,INDIRECT 0.4 mg/dl (0-1.1); BILIRUBIN,TOTAL 0.4 mg/dl (0.2-1.3); CREATININE 0.59 mg/dl (0.61-1.24); TOTAL PROTEIN 6.6 g/dl (6.1-8.1)
[2016-05-28 05:47] LABS: CONDITION 1; LH ANALYZER COMMENTS 1
--- NOTE | 2016-05-28 08:42 | RADRPT ---
PROCEDURE: XR Chest. CLINICAL INDICATION: Dyspnea TECHNIQUE: Single frontal chest x-ray. COMPARISON: 05/26/2016 FINDINGS: Endotracheal tube tip remains within the distal trachea approximately 1 cm above the erasto. Left s ubclavian central venous catheter remains in place. There is stable mild pulmonary vascular congest ion. No acute infiltrate, pneumothorax or significant pleural effusion is identified. Cardiomedias tinal silhouette is within normal limits. The osseous structures are unremarkable. IMPRESSION: 1. Lines and tubes remain in place. 2. Stable mild pulmonary vascular congestion. 9. No significant interval change. RPTAT: TT .Kelvin Cobos MD, MD Date Time Electronically viewed and signed by .Kelvin Cobos MD, on 05/28/2016 08:41 .R/
[2016-05-28] MEDS: FENTAnyl 1,000 MCG in DEXTROSE 5% 80 ML IV SCH (09:12)
[2016-05-28] MEDS: MIDAZOLAM 50 MG in DEXTROSE 5% 40 ML IV SCH (09:12)
[2016-05-28] MEDS: SOD CHLORIDE 0.9% 1,000 ML IV SCH (12:44)
[2016-05-28] MEDS ORDERED: FUROSEMIDE 20 MG INJ IV ONE (14:00)
[2016-05-28 15:19] LABS: THYROID STIMULATING HORMONE 16.4 MIU/L (0.465-4.680)
[2016-05-28] MEDS: TPN 1,000 ML IV SCH (16:55)
--- NOTE | 2016-05-28 17:32 | PN ---
Date/Time of Note Date/Time of Note DATE: 05/28/16 TIME: 17:29 Assessment/Plan VTE Prophylaxis VTE Prophylaxis Intervention: contraindicated VTE Contraindication Reason: bleeding Lines/Catheters IV Catheter Type (from Nrsg): PICC Line Central line still needed: Yes Urinary Cath still in place: Yes Reason Cath still needed: urinary retention Assessment/Plan Chief Complaint/Hosp Course A/P 1. Ac Resp failure; airway protection/ encephalopathy; stable; extubated; start st eval/ cont tpn 2. Upper GiB/ esophageal varices; sp EGD x2; sp ligation; octreotide/ppi drip 3. Hepatic encephalopathy; lactulose/librium 4. Ac/ chr anemia 2/2 Blood loss 5. Etoh liver dz (ascites/ coagulopathy/ varices) 6. Homelessness/ Ftt 7. Resolving aspiration pneumonia & uti 8. Hypernatremia ~ hypovolemic? 9. Ftt; snf when stable 10. Hypothyroidism- new -Dispo: Bioethics consult pending as there is no family and prognosis is poor. Problems: Subjective 24 Hr Interval Summary Free Text/Dictation extubated; follows 1 step commands. no active bleed, but dark stools. Exam/Review of Systems Vital Signs Vitals Vital Signs Date Time Temp Pulse Resp B/P Pulse Ox O2 Delivery O2 Flow Rate FiO2 05/28/16 17:14 3.0 32 05/28/16 16:00 90 05/28/16 15:20 97 05/28/16 15:14 28 05/28/16 12:30 113/73 Mechanical Ventilator 05/28/16 12:00 99.5 Intake and Output 05/27/16 05/27/16 05/28/16 15:00 23:00 07:00 Intake Total 567.5 ml 620.0 ml 520.0 ml Output Total 1085 ml 285 ml 249 ml Balance -517.5 ml 335.0 ml 271.0 ml Exam Head: atraumatic Respiratory: clear to auscultation Cardiovascular: regular rate and rhythm Gastrointestinal: non-tender (nd; no r r g), soft Extremities: other (no edema) Results Result Diagram: 05/28/16 0420 05/28/160 Results 24 hrs Laboratory Tests Test 05/27/16 20:58 05/28/16 00:43 05/28/16 04:20 05/28/16 05:00 Bedside Glucose 109 105 Activated Partial Thromboplast Time 42.7 H Alanine Aminotransferase (ALT/SGPT) 50 Albumin 2.1 L Albumin/Globulin Ratio 0.46 Alkaline Phosphatase 212 H Ammonia < 9 L Anion Gap 11 Aspartate Amino Transf (AST/SGOT) 62 H Basophils # 0.0 Basophils % 0.0 Blood Morphology Comment Blood Urea Nitrogen 17 Calcium Level 8.0 L Carbon Dioxide Level 28 Chloride Level 105 Creatinine 0.59 L Direct Bilirubin 0.00 Eosinophils # 0.2 Eosinophils % 2.3 Globulin 4.50 H Glucose Level 110 Hematocrit 24.5 L Hemoglobin 8.2 L INR International Normalized Ratio 1.44 Indirect Bilirubin 0.4 Lymphocytes # 0.9 Lymphocytes % 9.0 L Magnesium Level 1.9 Mean Corpuscular Hemoglobin 30.6 Mean Corpuscular Hemoglobin Concent 33.6 Mean Corpuscular Volume 90.9 Mean Platelet Volume 9.1 Monocytes # 0.8 Monocytes % 7.4 Neutrophils # 8.4 H Neutrophils % 81.3 H Nucleated Red Blood Cells # 0.0 Nucleated Red Blood Cells % 0.0 Phosphorus Level 3.1 Platelet Count 253 Potassium Level 3.6 Prothrombin Time 17.6 H Prothrombin Time Ratio 1.4 Red Blood Count 2.69 L Red Cell Distribution Width 17.6 H Sodium Level 140 Thyroid Stimulating Hormone (TSH) 16.400 H Total Bilirubin 0.4 Total Protein 6.6 White Blood Count 10.4 Arterial Blood HCO3 26.0 Arterial Blood Base Excess 2.2 Arterial Blood Oxygen Saturation 96.3 Tejinder Test ACCEPTAB Arterial Blood Gas Puncture Site Right Radial Arterial Blood Carboxyhemoglobin 0 Arterial Blood Date Drawn 05/28/2016 5:00:55 AM Arterial Blood Methemoglobin 0.1 Arterial Blood pCO2 (Temp correct) 37.2 Arterial Blood pH (Temp corrected) 7.462 H Arterial Blood pO2 (Temp corrected) 84.9 Blood Gas A-a O2 Differential 85.3 H Blood Gas Actual Respiration Rate 24 Blood Gas Low PEEP Setting 5.0 Blood Gas Modality VENT - PSV Blood Gas Notified Time 05/28/2016 5:13:36 AM Blood Gas Notified Whom MG Blood Gas Pressure Support 10 Blood Gas Specimen Source Blood arterial Blood Gas Temperature 37.0 FiO2 30.0 Oxyhemoglobin Percent 96.2 Total Hemoglobin 11.1 L Test 05/28/16 05:24 12/27/16 12:46 Bedside Glucose 106 110 Medications Medications Current Medications Ondansetron HCl (Zofran Inj) 4 mg Q6H PRN IV NAUSEA AND/OR VOMITING; Start 05/07/16 at 19:30 Morphine Sulfate (morphine) 2 mg Q4H PRN IV SEVERE PAIN LEVEL 7-10 Last administered on 05/23/16at 04:03; Admin Dose 2 MG; Start 05/07/16 at 19:30 Docusate Sodium (Colace) 100 mg Q12H PRN PO CONSTIPATION; Start 05/07/16 at 19: 30 Lorazepam (Ativan) 1 mg Q2 PRN IV AGITATION/ANXIETY; Start 05/09/16 at 16:30 IV Flush 10 ml 10 ml PRN PRN IV IV PROTOCOL; Start 05/17/16 at 12:00 Octreotide Acetate 500 mcg/ Dextrose 50 ml @ 2.5 mls/hr Q20H IV Last administered on 05/28/16at 05:25; Admin Dose 2.5 MLS/HR; Start 05/19/16 at 12: 00 Pantoprazole 80 mg/Dextrose 100 ml @ 10 mls/hr Q10H IV Last administered on at 16:53; Admin Dose 10 MLS/HR; Start 05/19/16 at 12:00 Midazolam HCl 50 mg/Dextrose 50 ml @ 1 mls/hr Q24H IV ; Start 05/22/16 at 09:12 Fentanyl 1000 mcg/ Dextrose 100 ml @ 2.5 mls/hr Q24H IV ; Start 05/22/16 at 09 :12 Total Parenteral Nutrition 1,000 ml @ 40 mls/hr Q24H IV Last administered on 05/28/16at 16:55; Admin Dose 40 MLS/HR; Start 05/24/16 at 15:00 Piperacillin Sod/ Tazobactam Sod (Zosyn 3.375gm/ 100 ml (Pmx)) 100 ml @ 200 mls /hr Q8 IVPB Last administered on 05/28/16at 13:55; Admin Dose 200 MLS/HR; Start 05/25/16 at 14:00 Diagnostic Test (Pha) (Accucheck) 1 ea Q6 XX ; Start 05/28/16 at 12:00 Lactulose 100 ml 100 ml Q12 ND ; Start 05/28/16 at 21:00 Sodium Chloride (NS) 1,000 ml @ 100 mls/hr Q10H IV Last administered on at 12:44; Admin Dose 100 MLS/HR; Start 05/28/16 at 11:30 CAROLINA TY MD May 28, 2016 17:32
[2016-05-28] MEDS ORDERED: THIAMINE 200 MG INJ IVPB SCH (18:00)
[2016-05-28] MEDS: LEVOFLOXACIN 500MG/D5W (PMX) 100 ML IVPB SCH (18:19)
[2016-05-28] MEDS ORDERED: THIAMINE IV SCH (20:00)
[2016-05-28] MEDS ORDERED: DEXTROSE 5% IV SCH (20:00)
[2016-05-28] MEDS ORDERED: LORAZEPAM 2 MG INJ IV PRN (22:00)
[2016-05-28] MEDS ORDERED: ACETYLCYSTEINE 20% 4 ML VIAL NEB SCH (22:00)
[2016-05-28] MEDS ORDERED: ALBUTEROL 0.5% (NEB) 2.5 MG/0.5 ML AMP HHN SCH (22:00)
[2016-05-29] VITALS (17 sets, daily range): BP systolic 99–150; BP diastolic 65–91; PULSE 79–95; RESP 19–33
[2016-05-29] MEDS: ACETYLCYSTEINE 20% 4 ML VIAL NEB SCH ×3 (00:10→17:04)
[2016-05-29] MEDS: ALBUTEROL 0.5% (NEB) 2.5 MG/0.5 ML AMP HHN SCH ×3 (00:10→17:04)
[2016-05-29] MEDS: IPRATROPIUM (NEB) 0.5 MG/2.5 ML AMP HHN SCH ×3 (00:10→17:04)
[2016-05-29] MEDS: ACCUCHECK XX SCH ×4 (01:30→18:00)
[2016-05-29] MEDS: OCTREOTIDE 500 MCG in DEXTROSE 5% 49 ML IV SCH (01:33)
[2016-05-29] MEDS: PANTOPRAZOLE IV 80 MG in DEXTROSE 5% 100 ML IV SCH ×3 (03:01→23:25)
[2016-05-29 05:00] LABS: BASOPHILS % 0.5 % (0.0-2.0); EOSINOPHILS # 0.3 10^3/ul (0.0-0.5); EOSINOPHILS % 2.6 % (0.0-7.0); HEMATOCRIT 25.1 % (42.0-52.0); HEMOGLOBIN 8.1 g/dl (14.0-18.0); LYMPHOCYTES # 1.1 10^3/ul (0.8-2.9); LYMPHOCYTES % 11.8 % (15.0-51.0); MEAN CORPUSCULAR HEMOGLOBIN 29.7 pg (29.0-33.0); MEAN CORPUSCULAR HGB CONC 32.5 g/dl (32.0-37.0); MEAN CORPUSCULAR VOLUME 91.4 fl (82.0-101.0); MEAN PLATELET VOLUME 8.9 fl (7.4-10.4); MONOCYTE # 0.7 10^3/ul (0.3-0.9); NEUTROPHIL # 7.4 10^3/ul (1.6-7.5); NEUTROPHILS % 78.1 % (39.0-77.0); PLATELET COUNT 267 10^3/UL (140-440); RED BLOOD COUNT 2.74 10^6/ul (4.70-6.10); RED CELL DISTRIBUTION WIDTH 17.4 % (11.5-14.5); UNCORRECTED WBC 9.5 10^3/ul (4.8-10.8); WHITE BLOOD COUNT 9.5 10^3/ul (4.8-10.8)
[2016-05-29 05:09] LABS: CONDITION 1; LH ANALYZER COMMENTS 1
[2016-05-29 05:24] LABS: MAGNESIUM 1.7 mg/dl (1.7-2.5); PHOSPHORUS 2.4 mg/dl (2.5-4.9); POTASSIUM 3.9 mmol/L (3.5-5.1)
[2016-05-29 05:26] LABS: CREATININE 0.51 mg/dl (0.61-1.24)
[2016-05-29 05:27] LABS: CALCIUM 7.6 mg/dl (8.4-10.2)
[2016-05-29] MEDS: LEVOTHYROXINE 100 MCG VIAL IV SCH (05:34)
[2016-05-29] MEDS: SOD CHLORIDE 0.9% 1,000 ML IV SCH ×3 (05:34→19:50)
--- NOTE | 2016-05-29 08:46 | RADRPT ---
PROCEDURE: Chest Radiograph. CLINICAL INDICATION: Post extubation TECHNIQUE: Single frontal chest radiograph. COMPARISON: Chest radiograph 05/28/2016 FINDINGS: There has been interval removal of an endotracheal tube. A left upper extremity PICC remains in [place] ce. Lung volumes are moderately decreased in there is moderate basilar atelectasis and central comp ressive changes. Heart size is poorly evaluated. There is mild central vascular congestion. Diffus e interstitial opacities are mildly improved and likely represent improving pulmonary edema. The bones are intact. IMPRESSION: 1. Interval removal of endotracheal tube. 2. Persistent central vascular congestion with mildly improved pulmonary edema. 3. Low lung volumes with basilar atelectasis and central compressive changes. RPTAT: KK .René Dorman MD, Date Time Electronically viewed and signed by .René Dorman MD, on 05/29/2016 08:46 .B/
[2016-05-29] MEDS: LACTULOSE ENEMA 1,000 ML BTL PR SCH ×2 (10:41→22:31)
--- NOTE | 2016-05-29 11:16 | CONS ---
Date/Time of Note Date/Time of Note DATE: 05/29/16 TIME: 11:14 Consult Date/Type/Reason Admit Date/Time May 07, 2016 at 14:39 Type of Consultation: pulmonary Ordering Provider: KASH OLVERA Subjective Estimated now on room air No Evidence respiratory distress Currently hemodynamically stable Continues TPN Objective Vital Signs Date Time Temp Pulse Resp B/P Pulse Ox O2 Delivery O2 Flow Rate FiO2 05/29/16 08:25 90 20 100 21 05/29/16 07:00 126/75 Room Air 05/29/16 04:07 3.0 05/29/16 04:00 98.4 Intake and Output 05/28/16 05/28/16 05/29/16 15:00 23:00 07:00 Intake Total 645.0 ml 1195.0 ml 1020.0 ml Output Total 890 ml 630 ml 434 ml Balance -245.0 ml 565.0 ml 586.0 ml GENERAL: Chronically ill-appearing gentleman VITAL SIGNS: per chart NECK: Supple. No JVD or lymphadenopathy. CARDIAC EXAM: S1, S2. No added sounds or murmurs. CHEST: clear bilaterally, No added sounds, rales or wheezes ABDOMEN: Soft, nontender. No guarding or rebound. EXTREMITIES: No cyanosis, clubbing or edema. NEUROLOGIC: Generalized weakness. Results/Medications Result Diagram: 05/29/16 0400 05/29/16 0400 Results 24 hrs Laboratory Tests Test 05/28/16 12:46 05/28/16 17:28 05/29/16 01:30 05/29/16 04:00 Bedside Glucose 110 116 99 Anion Gap 11 Basophils # 0.0 Basophils % 0.5 Blood Morphology Comment Blood Urea Nitrogen 13 Calcium Level 7.6 L Carbon Dioxide Level 29 Chloride Level 103 Creatinine 0.51 L Eosinophils # 0.3 Eosinophils % 2.6 Free Thyroxine 0.82 Glucose Level 111 Hematocrit 25.1 L Hemoglobin 8.1 L Lymphocytes # 1.1 Lymphocytes % 11.8 L Magnesium Level 1.7 Mean Corpuscular Hemoglobin 29.7 Mean Corpuscular Hemoglobin Concent 32.5 Mean Corpuscular Volume 91.4 Mean Platelet Volume 8.9 Monocytes # 0.7 Monocytes % 7.0 Neutrophils # 7.4 Neutrophils % 78.1 H Nucleated Red Blood Cells # 0.0 Nucleated Red Blood Cells % 0.0 Phosphorus Level 2.4 L Platelet Count 267 Potassium Level 3.9 Red Blood Count 2.74 L Red Cell Distribution Width 17.4 H Sodium Level 139 White Blood Count 9.5 Test 05/29/16 05:35 Bedside Glucose 101 Medications Current Medications Ondansetron HCl (Zofran Inj) 4 mg Q6H PRN IV NAUSEA AND/OR VOMITING; Start 05/07/16 at 19:30 Morphine Sulfate (morphine) 2 mg Q4H PRN IV SEVERE PAIN LEVEL 7-10 Last administered on 05/23/16at 04:03; Admin Dose 2 MG; Start 05/07/16 at 19:30 Docusate Sodium (Colace) 100 mg Q12H PRN PO CONSTIPATION; Start 05/07/16 at 19: 30 IV Flush 10 ml 10 ml PRN PRN IV IV PROTOCOL; Start 05/17/16 at 12:00 Octreotide Acetate 500 mcg/ Dextrose 50 ml @ 2.5 mls/hr Q20H IV Last administered on 05/29/16at 01:33; Admin Dose 2.5 MLS/HR; Start 05/19/16 at 12: 00 Pantoprazole 80 mg/Dextrose 100 ml @ 10 mls/hr Q10H IV Last administered on at 03:01; Admin Dose 10 MLS/HR; Start 05/19/16 at 12:00 Total Parenteral Nutrition (Tpn) 1,000 ml @ 40 mls/hr Q24H IV Last administered on 05/28/16at 16:55; Admin Dose 40 MLS/HR; Start 05/24/16 at 15:00 Diagnostic Test (Pha) (Accucheck) 1 ea Q6 XX Last administered on 05/29/16at 05 :34; Admin Dose 1 EA; Start 05/28/16 at 12:00 Lactulose 100 ml 100 ml Q12 ID Last administered on 05/29/16at 10:41; Admin Dose 100 ML; Start 05/28/16 at 21:00 Sodium Chloride (NS) 1,000 ml @ 75 mls/hr [id number] IV Last administered on at 05:34; Admin Dose 75 MLS/HR; Start 05/28/16 at 11:30 Lorazepam 1 mg 1 mg Q8 PRN IV AGITATION/ANXIETY; Start 05/28/16 at 22:00 Levofloxacin/ Dextrose (Levaquin 500mg/ D5W 100 ml (Pmx)) 100 ml @ 100 mls/hr Q24H IVPB Last administered on 05/28/16at 18:19; Admin Dose 100 MLS/HR; Start 05/28/16 at 18:00 Levothyroxine Sodium (Synthroid Iv) 50 mcg DAILY@06 IV Last administered on at 05:34; Admin Dose 50 MCG; Start 05/29/16 at 06:00 Assessment/Plan Chief Complaint/Hosp Course IMPRESSION AND PLAN: 1. Acute gastrointestinal bleed. Status post endoscopy. 2. Severe anemia. 3. Status post hypotensive shock 4. History of ETOH abuse with esophageal varices and portal hypertension. 5. Resp failure secondary to encephalopathy. Now extubated 6. Encephalopathy toxic metabolic, ammonia level within normal limits Plan 1. Aspiration precautions speech therapy evaluation 2. s/p Emergent endoscopy per GI. Continue recs 3. Transfusion of packed red blood cells keep Hb > 8 4. Correction of coagulopathy. 5. DVT and GI prophylaxis. Disposition Consider transfer to telemetry Problems: JAMILA TARVIS MD, [facility] May 29, 2016 11:15
--- NOTE | 2016-05-29 12:43 | PN ---
Date/Time of Note Date/Time of Note DATE: 05/29/16 TIME: 12:41 Assessment/Plan VTE Prophylaxis VTE Prophylaxis Intervention: contraindicated VTE Contraindication Reason: blood coagulation disorder Lines/Catheters IV C[facility]ter Type (from [facility]): PICC Line Urinary Cath still in place: Yes Assessment/Plan Chief Complaint/Hosp Course A/P 1. Ac Resp failure; airway protection/ encephalopathy; stable; extubated; Cont ST care/ +/- diet; cont tpn 2. Upper GiB/ esophageal varices; sp EGD x2; sp ligation; octreotide/ppi drip 3. Hepatic encephalopathy; lactulose/librium 4. Ac/ chr anemia 2/2 Blood loss 5. Etoh liver dz (ascites/ coagulopathy/ varices) 6. Homelessness/ Ftt 7. Resolving aspiration pneumonia & uti 8. Hypernatremia ~ hypovolemic? 9. Ftt; snf when stable 10. Hypothyroidism- new -Dispo: Bioethics consult pending as there is no family and prognosis is poor. Problems: Subjective 24 Hr Interval Summary Free Text/Dictation stable; follows 1 step commands. poor voice quality today. no active bleeding. Exam/Review of Systems Vital Signs Vitals Vital Signs Date Time Temp Pulse Resp B/P Pulse Ox O2 Delivery O2 Flow Rate FiO2 05/29/16 12:00 95 05/29/16 08:25 20 100 21 05/29/16 08:00 98.9 119/78 Room Air 05/29/16 04:07 3.0 Intake and Output 05/28/16 05/28/16 05/29/16 15:00 23:00 07:00 Intake Total 645.0 ml 1195.0 ml 1020.0 ml Output Total 890 ml 630 ml 434 ml Balance -245.0 ml 565.0 ml 586.0 ml Exam Respiratory: diminished breath sounds Cardiovascular: regular rate and rhythm Gastrointestinal: non-tender (nd; no r r g), soft Extremities: other (no edema) Results Result Diagram: 05/29/16 0400 05/29/16 0400 Results 24 hrs Laboratory Tests Test 05/28/16 12:46 05/28/16 17:28 05/29/16 01:30 05/29/16 04:00 Bedside Glucose 110 116 99 Anion Gap 11 Basophils # 0.0 Basophils % 0.5 Blood Morphology Comment Blood Urea Nitrogen 13 Calcium Level 7.6 L Carbon Dioxide Level 29 Chloride Level 103 Creatinine 0.51 L Eosinophils # 0.3 Eosinophils % 2.6 Free Thyroxine 0.82 Glucose Level 111 Hematocrit 25.1 L Hemoglobin 8.1 L Lymphocytes # 1.1 Lymphocytes % 11.8 L Magnesium Level 1.7 Mean Corpuscular Hemoglobin 29.7 Mean Corpuscular Hemoglobin Concent 32.5 Mean Corpuscular Volume 91.4 Mean Platelet Volume 8.9 Monocytes # 0.7 Monocytes % 7.0 Neutrophils # 7.4 Neutrophils % 78.1 H Nucleated Red Blood Cells # 0.0 Nucleated Red Blood Cells % 0.0 Phosphorus Level 2.4 L Platelet Count 267 Potassium Level 3.9 Red Blood Count 2.74 L Red Cell Distribution Width 17.4 H Sodium Level 139 White Blood Count 9.5 Test 05/29/16 05:35 Bedside Glucose 101 Medications Medications Current Medications Ondansetron HCl (Zofran Inj) 4 mg Q6H PRN IV NAUSEA AND/OR VOMITING; Start 05/07/16 at 19:30 Morphine Sulfate (morphine) 2 mg Q4H PRN IV SEVERE PAIN LEVEL 7-10 Last administered on 05/23/16at 04:03; Admin Dose 2 MG; Start 05/07/16 at 19:30 Docusate Sodium (Colace) 100 mg Q12H PRN PO CONSTIPATION; Start 05/07/16 at 19: 30 IV Flush 10 ml 10 ml PRN PRN IV IV PROTOCOL; Start 05/17/16 at 12:00 Octreotide Acetate 500 mcg/ Dextrose 50 ml @ 2.5 mls/hr Q20H IV Last administered on 05/29/16at 01:33; Admin Dose 2.5 MLS/HR; Start 05/19/16 at 12: 00 Pantoprazole 80 mg/Dextrose 100 ml @ 10 mls/hr Q10H IV Last administered on at 03:01; Admin Dose 10 MLS/HR; Start 05/19/16 at 12:00 Total Parenteral Nutrition (Tpn) 1,000 ml @ 40 mls/hr Q24H IV Last administered on 05/28/16at 16:55; Admin Dose 40 MLS/HR; Start 05/24/16 at 15:00 Diagnostic Test (Pha) (Accucheck) 1 ea Q6 XX Last administered on 05/29/16 05 :34; Admin Dose 1 EA; Start 05/28/16 at 12:00 Lactulose 100 ml 100 ml Q12 VA Last administered on 05/29/16at 10:41; Admin Dose 100 ML; Start 05/28/16 at 21:00 Sodium Chloride (NS) 1,000 ml @ 75 mls/hr [id number] IV Last administered on 05:34; Admin Dose 75 MLS/HR; Start 05/28/16 at 11:30 Lorazepam 1 mg 1 mg Q8 PRN IV AGITATION/ANXIETY; Start 05/28/16 at 22:00 Levofloxacin/ Dextrose (Levaquin 500mg/ D5W 100 ml (Pmx)) 100 ml @ 100 mls/hr Q24H IVPB Last administered on 05/28/16 18:19; Admin Dose 100 MLS/HR; Start 05/28/16 at 18:00 Levothyroxine Sodium (Synthroid Iv) 50 mcg DAILY@06 IV Last administered on 05:34; Admin Dose 50 MCG; Start 05/29/16 at 06:00 CAROLINA TY MD May 29, 2016 12:43
[2016-05-29] MEDS ORDERED: MAGNESIUM SULFATE 2 GM/50 ML 50 ML IVPB ONE (13:00)
[2016-05-29] MEDS ORDERED: POTASSIUM PHOSPHATE 20 MEQ in SOD CHLORIDE 0.9% 250 ML IVPB ONE (14:30)
--- NOTE | 2016-05-29 14:32 | CONS ---
Date/Time of Note Date/Time of Note DATE: 05/29/16 TIME: 14:31 Assessment/Plan Assessment/Plan Chief Complaint/Hosp Course 70 yo male, with alcoholic cirrhosis admitted for upper GI bleed, who on 05/17 was noted to be hypotensive secondary to a drop in HG who subsequently developed a leukocytosis and bandemia, with UCx showing GNR and RCs showing klebsiella and branhamella catarrhalis. Although bandemia is usually seen with septic shock it can also been seen with hypovolemic shock which may have happened on 05/17. Leukocytosis is also very common with ascites and may be elevated secondary to the peritoneal inflammation. The peripheral smear was reviewed which demonstrated no evidence of malignant cells. -likely reactive from infection, hypovolemic shock, peritoneal inflammation. Continue to monitor. If repeat CBC confirms increased WBC/bands, would recommend repeating cultures. Now resolved. -anemia secondary to GIB, stable ~ 8, ?melena. Repeat CBC, if remains low would transfuse < 8 and call GI. -continue supportive care -continue to follow CBC with wbc improving, follow as needed Problems: Consultation Date/Type/Reason Admit Date/Time May 07, 2016 at 14:39 Initial Consult Date 05/20/16 Type of Consultation: Hematology/Oncology Referring Provider: KASH OLVERA 24 HR Interval Summary Free Text/Dictation Patient sleeping comfortably. Exam/Review of Systems Vital Signs Vitals Vital Signs Date Time Temp Pulse Resp B/P Pulse Ox O2 Delivery O2 Flow Rate FiO2 05/29/16 12:00 95 05/29/16 08:25 20 100 21 05/29/16 08:00 98.9 119/78 Room Air 05/29/16 04:07 3.0 Intake and Output 05/28/16 05/28/16 05/29/16 15:00 23:00 07:00 Intake Total 645.0 ml 1195.0 ml 1020.0 ml Output Total 890 ml 630 ml 434 ml Balance -245.0 ml 565.0 ml 586.0 ml Exam Constitutional: frail, non-verbal, other (sleeping comfortably) Head: normocephalic Neck: supple Respiratory: other (ronchi) Cardiovascular: regular rate and rhythm Gastrointestinal: non-tender, soft Musculoskeletal: nl extremities to inspection Results Result Diagram: 05/29/16 0400 05/29/16 0400 Results 24 hrs Laboratory Tests Test 05/28/16 17:28 05/29/16 01:30 05/29/16 04:00 05/29/16 05:35 Bedside Glucose 116 99 101 Anion Gap 11 Basophils # 0.0 Basophils % 0.5 Blood Morphology Comment Blood Urea Nitrogen 13 Calcium Level 7.6 L Carbon Dioxide Level 29 Chloride Level 103 Creatinine 0.51 L Eosinophils # 0.3 Eosinophils % 2.6 Free Thyroxine 0.82 Glucose Level 111 Hematocrit 25.1 L Hemoglobin 8.1 L Lymphocytes # 1.1 Lymphocytes % 11.8 L Magnesium Level 1.7 Mean Corpuscular Hemoglobin 29.7 Mean Corpuscular Hemoglobin Concent 32.5 Mean Corpuscular Volume 91.4 Mean Platelet Volume 8.9 Monocytes # 0.7 Monocytes % 7.0 Neutrophils # 7.4 Neutrophils % 78.1 H Nucleated Red Blood Cells # 0.0 Nucleated Red Blood Cells % 0.0 Phosphorus Level 2.4 L Platelet Count 267 Potassium Level 3.9 Red Blood Count 2.74 L Red Cell Distribution Width 17.4 H Sodium Level 139 White Blood Count 9.5 Test 05/29/16 13:05 Bedside Glucose 114 Medications Medications Current Medications Ondansetron HCl (Zofran Inj) 4 mg Q6H PRN IV NAUSEA AND/OR VOMITING; Start 05/07/16 at 19:30 Morphine Sulfate (morphine) 2 mg Q4H PRN IV SEVERE PAIN LEVEL 7-10 Last administered on 05/23/16at 04:03; Admin Dose 2 MG; Start 05/07/16 at 19:30 Docusate Sodium (Colace) 100 mg Q12H PRN PO CONSTIPATION; Start 05/07/16 at 19: 30 IV Flush 10 ml 10 ml PRN PRN IV IV PROTOCOL; Start 05/17/16 at 12:00 Octreotide Acetate 500 mcg/ Dextrose 50 ml @ 2.5 mls/hr Q20H IV Last administered on 05/29/16at 01:33; Admin Dose 2.5 MLS/HR; Start 05/19/16 at 12: 00 Pantoprazole 80 mg/Dextrose 100 ml @ 10 mls/hr Q10H IV Last administered on at 12:59; Admin Dose 10 MLS/HR; Start 05/19/16 at 12:00 Total Parenteral Nutrition (Tpn) 1,000 ml @ 40 mls/hr Q24H IV Last administered on 05/28/16at 16:55; Admin Dose 40 MLS/HR; Start 05/24/16 at 15:00 Diagnostic Test (Pha) (Accucheck) 1 ea Q6 XX Last administered on 05/29/16at 12 :00; Admin Dose 1 EA; Start 05/28/16 at 12:00 Lactulose 100 ml 100 ml Q12 MI Last administered on 05/29/16at 10:41; Admin Dose 100 ML; Start 05/28/16 at 21:00 Sodium Chloride (NS) 1,000 ml @ 75 mls/hr [id number] IV Last administered on 13:00; Admin Dose 75 MLS/HR; Start 05/28/16 at 11:30 Lorazepam 1 mg 1 mg Q8 PRN IV AGITATION/ANXIETY; Start 05/28/16 at 22:00 Levofloxacin/ Dextrose (Levaquin 500mg/ D5W 100 ml (Pmx)) 100 ml @ 100 mls/hr Q24H IVPB Last administered on 05/28/16at 18:19; Admin Dose 100 MLS/HR; Start 05/28/16 at 18:00 Levothyroxine Sodium 50 mcg 50 mcg DAILY@06 IV Last administered on 05/29/16at 05:34; Admin Dose 50 MCG; Start 05/29/16 at 06:00 Magnesium Sulfate 50 ml @ 25 mls/hr ONCE ONCE IVPB Last administered on at 13:08; Admin Dose 25 MLS/HR; Start 05/29/16 at 13:00; Stop 05/29/16 at 14 :59 Potassium Phosphate/Sodium Chloride (K Phos (Meq)/NS) 254.5455 ml @ 63.636 m... ONCE ONCE IVPB ; Start 05/29/16 at 14:30; Stop 05/29/16 at 18:29 TOSTANISLAW MD May 29, 2016 14:32
[2016-05-29] MEDS: TPN 1,000 ML IV SCH (17:39)
[2016-05-29] MEDS: LEVOFLOXACIN 500MG/D5W (PMX) 100 ML IVPB SCH (19:49)
[2016-05-30] VITALS (10 sets, daily range): BP systolic 93–136; BP diastolic 68–95; PULSE 82–95; RESP 18–20
[2016-05-30] MEDS: ALBUTEROL 0.5% (NEB) 2.5 MG/0.5 ML AMP HHN SCH ×3 (00:55→15:04)
[2016-05-30] MEDS: IPRATROPIUM (NEB) 0.5 MG/2.5 ML AMP HHN SCH ×3 (00:55→15:04)
[2016-05-30] MEDS: OCTREOTIDE 500 MCG in DEXTROSE 5% 49 ML IV SCH (04:39)
[2016-05-30] MEDS: LEVOTHYROXINE 100 MCG VIAL IV SCH (05:59)
[2016-05-30] MEDS: ACCUCHECK XX SCH ×4 (05:59→18:19)
[2016-05-30] MEDS: ACETYLCYSTEINE 20% 4 ML VIAL NEB SCH ×3 (08:00→15:03)
[2016-05-30] MEDS: PANTOPRAZOLE IV 80 MG in DEXTROSE 5% 100 ML IV SCH ×4 (08:00→21:09)
[2016-05-30] MEDS: LACTULOSE ENEMA 1,000 ML BTL PR SCH (09:44)
[2016-05-30] MEDS: SOD CHLORIDE 0.9% 1,000 ML IV SCH ×2 (09:51→16:46)
--- NOTE | 2016-05-30 10:51 | PN ---
Date/Time of Note Date/Time of Note DATE: 05/30/16 TIME: 10:47 Assessment/Plan VTE Prophylaxis VTE Prophylaxis Intervention: contraindicated VTE Contraindication Reason: blood coagulation disorder Lines/Catheters IV [facility] Type [email or web address] PICC Line Urinary Cath still in place: Yes Assessment/Plan Chief Complaint/Hosp Course A/P 1. Ac Resp failure; airway protection/encephalopathy; stable; extubated; Cont ST care, +/- diet; cont tpn. nobody to sign for peg. 2. Upper GiB/ E varices; sp EGD x2/ ligation; DC octreotide/ppi drip if ok w Gi. 3. Hepatic encephalopathy; lactulose/librium; check ammonia friday 4. Ac/ chr anemia 2/2 Blood loss 5. Etoh liver dz (ascites/ coagulopathy/ varices) 6. Homelessness/ Ftt 7. Resolving aspiration pneumonia & uti 8. Hypernatremia ~ hypovolemic? 9. Ftt; DC to SNF if accepted. 10. Hypothyroidism- new 11. Past etoh; cont supportive care. -Dispo: Bioethics consult pending as there is no family and prognosis is poor. Problems: Subjective 24 Hr Interval Summary Free Text/Dictation S- remains lethargic; responds to noxious pain *4. no active bleed. no distress. will attempt ST care soon. Exam/Review of Systems Vital Signs Vitals Vital Signs Date Time Temp Pulse Resp B/P Pulse Ox O2 Delivery O2 Flow Rate FiO2 05/30/16 08:06 90 05/30/16 08:00 24 96 21 05/30/16 07:23 98.5 135/95 05/29/16 22:41 Room Air 05/29/16 04:07 3.0 Intake and Output 05/29/16 05/29/16 05/30/16 15:00 23:00 07:00 Intake Total 215 ml 855 ml Output Total 50 ml 60 ml 500 ml Balance -50 ml 155 ml 355 ml Exam Constitutional: alert Respiratory: clear to auscultation Cardiovascular: regular rate and rhythm Gastrointestinal: non-tender (mild distended; no r r g), soft Extremities: other (hypotonia; non focal.) Results Result Diagram: 05/29/16 0400 05/29/16 0400 Results 24 hrs Laboratory Tests Test 05/29/16 13:05 05/29/16 17:53 05/29/16 19:56 05/30/16 00:20 Bedside Glucose 114 103 113 95 Test 05/30/16 05:57 Bedside Glucose 92 Medications Medications Current Medications Ondansetron HCl (Zofran Inj) 4 mg Q6H PRN IV NAUSEA AND/OR VOMITING; Start 05/07/16 at 19:30 Morphine Sulfate (morphine) 2 mg Q4H PRN IV SEVERE PAIN LEVEL 7-10 Last administered on 05/23/16at 04:03; Admin Dose 2 MG; Start 05/07/16 at 19:30 Docusate Sodium (Colace) 100 mg Q12H PRN PO CONSTIPATION; Start 05/07/16 at 19: 30 IV Flush 10 ml 10 ml PRN PRN IV IV PROTOCOL; Start 05/17/16 at 12:00 Octreotide Acetate 500 mcg/ Dextrose 50 ml @ 2.5 mls/hr Q20H IV Last administered on 05/30/16at 04:39; Admin Dose 2.5 MLS/HR; Start 05/19/16 at 12: 00 Pantoprazole 80 mg/Dextrose 100 ml @ 10 mls/hr Q10H IV Last administered on 09:50; Admin Dose 10 MLS/HR; Start 05/19/16 at 12:00 Total Parenteral Nutrition (Tpn) 1,000 ml @ 40 mls/hr Q24H IV Last administered on 05/29/16at 17:39; Admin Dose 40 MLS/HR; Start 05/24/16 at 15:00 Diagnostic Test (Pha) (Accucheck) 1 ea Q6 XX Last administered on 05/29/16at 12 :00; Admin Dose 1 EA; Start 05/28/16 at 12:00 Lactulose 100 ml 100 ml Q12 GA Last administered on 05/30/16 09:44; Admin Dose 100 ML; Start 05/28/16 at 21:00 Sodium Chloride (NS) 1,000 ml @ 75 mls/hr [id number] IV Last administered on at 09:51; Admin Dose 75 MLS/HR; Start 05/28/16 at 11:30 Lorazepam 1 mg 1 mg Q8 PRN IV AGITATION/ANXIETY; Start 05/28/16 at 22:00 Levofloxacin/ Dextrose (Levaquin 500mg/ D5W 100 ml (Pmx)) 100 ml @ 100 mls/hr Q24H IVPB Last administered on 05/29/16at 19:49; Admin Dose 100 MLS/HR; Start 05/28/16 at 18:00 Levothyroxine Sodium (Synthroid Iv) 50 mcg DAILY@06 IV Last administered on at 05:59; Admin Dose 50 MCG; Start 05/29/16 at 06:00 CAROLINA TY MD May 30, 2016 10:51
[2016-05-30] MEDS ORDERED: THIAMINE 200 MG INJ IV SCH (11:00)
[2016-05-30] MEDS ORDERED: [UNRECOGNIZED DRUG - REMARK] XX SCH (11:30)
--- NOTE | 2016-05-30 12:54 | CONS ---
Date/Time of Note Date/Time of Note DATE: 05/30/16 TIME: 12:53 Assessment/Plan Assessment/Plan Chief Complaint/Hosp Course 70 yo male, with alcoholic cirrhosis admitted for upper GI bleed, who on 05/17 was noted to be hypotensive secondary to a drop in HG who subsequently developed a leukocytosis and bandemia, with UCx showing GNR and RCs showing klebsiella and branhamella catarrhalis. Although bandemia is usually seen with septic shock it can also been seen with hypovolemic shock which may have happened on 05/17. Leukocytosis is also very common with ascites and may be elevated secondary to the peritoneal inflammation. The peripheral smear was reviewed which demonstrated no evidence of malignant cells. -likely reactive from infection, hypovolemic shock, peritoneal inflammation. If repeat CBC confirms increased WBC/bands, would recommend repeating cultures. No new labs today but labs yesterday show leukocytosis resolved. Continue to monitor. -anemia secondary to GIB, stable ~ 8, ?melena. Repeat CBC, if remains low would transfuse < 8 and call GI. -continue supportive care -continue to follow CBC with wbc improving, follow as needed Problems: Consultation Date/Type/Reason Admit Date/Time May 07, 2016 at 14:39 Initial Consult Date 05/20/16 Type of Consultation: Hematology/Oncology Referring Provider: KASH OLVERA 24 HR Interval Summary Free Text/Dictation Patient sleepy but arousable. Exam/Review of Systems Vital Signs Vitals Vital Signs Date Time Temp Pulse Resp B/P Pulse Ox O2 Delivery O2 Flow Rate FiO2 05/30/16 12:11 94 05/30/16 11:54 98.4 19 118/71 95 05/30/16 08:00 21 05/29/16 22:41 Room Air 05/29/16 04:07 3.0 Intake and Output 05/29/16 05/29/16 05/30/16 14:59 22:59 06:59 Intake Total 127.5 ml 215 ml 855 ml Output Total 50 ml 60 ml 500 ml Balance 77.5 ml 155 ml 355 ml Exam Constitutional: frail, non-verbal, other (sleeping comfortably) Head: normocephalic Neck: supple Respiratory: other (ronchi) Cardiovascular: regular rate and rhythm Gastrointestinal: non-tender, soft Musculoskeletal: nl extremities to inspection Results Result Diagram: 05/29/16 0400 05/29/16 0400 Results 24 hrs Laboratory Tests Test 05/29/16 13:05 05/29/16 17:53 05/29/16 19:56 05/30/16 00:20 Bedside Glucose 114 103 113 95 Test 05/30/16 05:57 05/30/16 12:13 Bedside Glucose 92 112 Medications Medications Current Medications Ondansetron HCl (Zofran Inj) 4 mg Q6H PRN IV NAUSEA AND/OR VOMITING; Start 05/07/16 at 19:30 Morphine Sulfate (morphine) 2 mg Q4H PRN IV SEVERE PAIN LEVEL 7-10 Last administered on 05/23/16at 04:03; Admin Dose 2 MG; Start 05/07/16 at 19:30 Docusate Sodium (Colace) 100 mg Q12H PRN PO CONSTIPATION; Start 05/07/16 at 19: 30 IV Flush 10 ml 10 ml PRN PRN IV IV PROTOCOL; Start 05/17/16 at 12:00 Octreotide Acetate 500 mcg/ Dextrose 50 ml @ 2.5 mls/hr Q20H IV Last administered on 05/30/16at 04:39; Admin Dose 2.5 MLS/HR; Start 05/19/16 at 12: 00 Pantoprazole 80 mg/Dextrose 100 ml @ 10 mls/hr Q10H IV Last administered on at 09:50; Admin Dose 10 MLS/HR; Start 05/19/16 at 12:00 Total Parenteral Nutrition (Tpn) 1,000 ml @ 40 mls/hr Q24H IV Last administered on 05/29/16at 17:39; Admin Dose 40 MLS/HR; Start 05/24/16 at 15:00 Diagnostic Test (Pha) 1 ea 1 ea Q6 XX Last administered on 05/30/16at 12:36; Admin Dose 1 EA; Start 05/28/16 at 12:00 Sodium Chloride (NS) 1,000 ml @ 50 mls/hr Q20H IV Last administered on at 09:51; Admin Dose 75 MLS/HR; Start 05/28/16 at 11:30 Lorazepam 1 mg 1 mg Q8 PRN IV AGITATION/ANXIETY; Start 05/28/16 at 22:00 Levofloxacin/ Dextrose (Levaquin 500mg/ D5W 100 ml (Pmx)) 100 ml @ 100 mls/hr Q24H IVPB Last administered on 05/29/16at 19:49; Admin Dose 100 MLS/HR; Start 05/28/16 at 18:00 Levothyroxine Sodium (Synthroid Iv) 50 mcg DAILY@06 IV Last administered on at 05:59; Admin Dose 50 MCG; Start 05/29/16 at 06:00 Lactulose (Lactulose Enema) 100 ml DAILY [place] ; Start 05/31/16 at 09:00 Miscellaneous Information 1 ea NOTE XX ; Start 05/30/16 at 11:30 TO,STANISLAW Levy MD May 30, 2016 12:54
--- NOTE | 2016-05-30 15:31 | CONS ---
Date/Time of Note Date/Time of Note DATE: 05/30/16 TIME: 15:30 Consult Date/Type/Reason Admit Date/Time May 07, 2016 at 14:39 Type of Consultation: pulmonary Ordering Provider: KASH OLVERA Subjective Patient remained stable no new events Objective Vital Signs Date Time Temp Pulse Resp B/P Pulse Ox O2 Delivery O2 Flow Rate FiO2 05/30/16 15:10 75 24 92 21 05/30/16 11:54 98.4 118/71 05/29/16 22:41 Room Air 05/29/16 04:07 3.0 Intake and Output 05/29/16 05/29/16 05/30/16 14:59 22:59 06:59 Intake Total 127.5 ml 215 ml 855 ml Output Total 50 ml 60 ml 500 ml Balance 77.5 ml 155 ml 355 ml GENERAL: Chronically ill-appearing gentleman VITAL SIGNS: per chart NECK: Supple. No JVD or lymphadenopathy. CARDIAC EXAM: S1, S2. No added sounds or murmurs. CHEST: clear bilaterally, No added sounds, rales or wheezes ABDOMEN: Soft, nontender. No guarding or rebound. EXTREMITIES: No cyanosis, clubbing or edema. NEUROLOGIC: Generalized weakness. Results/Medications Result Diagram: 05/29/16 0400 05/29/16 0400 Results 24 hrs Laboratory Tests Test 05/29/16 17:53 05/29/16 19:56 05/30/16 00:20 05/30/16 05:57 Bedside Glucose 103 113 95 92 Test 05/30/16 12:13 Bedside Glucose 112 Medications Current Medications Ondansetron HCl (Zofran Inj) 4 mg Q6H PRN IV NAUSEA AND/OR VOMITING; Start 05/07/16 at 19:30 Morphine Sulfate (morphine) 2 mg Q4H PRN IV SEVERE PAIN LEVEL 7-10 Last administered on 05/23/16at 04:03; Admin Dose 2 MG; Start 05/07/16 at 19:30 Docusate Sodium (Colace) 100 mg Q12H PRN PO CONSTIPATION; Start 05/07/16 at 19: 30 IV Flush 10 ml 10 ml PRN PRN IV IV PROTOCOL; Start 05/17/16 at 12:00 Octreotide Acetate 500 mcg/ Dextrose 50 ml @ 2.5 mls/hr Q20H IV Last administered on 05/30/16 04:39; Admin Dose 2.5 MLS/HR; Start 05/19/16 at 12: 00 Pantoprazole 80 mg/Dextrose 100 ml @ 10 mls/hr Q10H IV Last administered on at 09:50; Admin Dose 10 MLS/HR; Start 05/19/16 at 12:00 Total Parenteral Nutrition (Tpn) 1,000 ml @ 40 mls/hr Q24H IV Last administered on 05/29/16at 17:39; Admin Dose 40 MLS/HR; Start 05/24/16 at 15:00 Diagnostic Test (Pha) 1 ea 1 ea Q6 XX Last administered on 05/30/16at 12:36; Admin Dose 1 EA; Start 05/28/16 at 12:00 Sodium Chloride (NS) 1,000 ml @ 50 mls/hr Q20H IV Last administered on at 09:51; Admin Dose 75 MLS/HR; Start 05/28/16 at 11:30 Lorazepam 1 mg 1 mg Q8 PRN IV AGITATION/ANXIETY; Start 05/28/16 at 22:00 Levofloxacin/ Dextrose (Levaquin 500mg/ D5W 100 ml (Pmx)) 100 ml @ 100 mls/hr Q24H IVPB Last administered on 05/29/16at 19:49; Admin Dose 100 MLS/HR; Start 05/28/16 at 18:00 Levothyroxine Sodium (Synthroid Iv) 50 mcg DAILY@06 IV Last administered on at 05:59; Admin Dose 50 MCG; Start 05/29/16 at 06:00 Lactulose (Lactulose Enema) 100 ml DAILY [place] ; Start 05/31/16 at 09:00 Miscellaneous Information 1 ea NOTE XX ; Start 05/30/16 at 11:30 Assessment/Plan Chief Complaint/Hosp Course IMPRESSION AND PLAN: 1. Acute gastrointestinal bleed. Status post endoscopy. 2. Severe anemia. 3. Status post hypotensive shock 4. History of ETOH abuse with esophageal varices and portal hypertension. 5. Resp failure secondary to encephalopathy. Now extubated 6. Encephalopathy toxic metabolic, ammonia level within normal limits Plan 1. Aspiration precautions speech therapy evaluation 2. s/p Emergent endoscopy per GI. Continue recs 3. Transfusion of packed red blood cells keep Hb > 8 4. Correction of coagulopathy. 5. DVT and GI prophylaxis. Disposition Consider snf facility Problems: JAMILA TRAVIS MD, [facility] May 30, 2016 15:31
[2016-05-30] MEDS: TPN 1,000 ML IV SCH (16:06)
[2016-05-30] MEDS: LEVOFLOXACIN 500MG/D5W (PMX) 100 ML IVPB SCH (18:12)
[2016-05-31] VITALS (12 sets, daily range): BP systolic 97–135; BP diastolic 57–93; PULSE 80–89; RESP 17–23
[2016-05-31] MEDS: ALBUTEROL 0.5% (NEB) 2.5 MG/0.5 ML AMP HHN SCH ×3 (00:21→21:20)
[2016-05-31] MEDS: ACETYLCYSTEINE 20% 4 ML VIAL NEB SCH ×3 (00:21→21:20)
[2016-05-31] MEDS: IPRATROPIUM (NEB) 0.5 MG/2.5 ML AMP HHN SCH ×3 (00:21→21:20)
[2016-05-31] MEDS: OCTREOTIDE 500 MCG in DEXTROSE 5% 49 ML IV SCH (00:40)
[2016-05-31] MEDS: ACCUCHECK XX SCH ×4 (06:00→18:15)
[2016-05-31] MEDS: LEVOTHYROXINE 100 MCG VIAL IV SCH (06:43)
[2016-05-31] MEDS: SOD CHLORIDE 0.9% 1,000 ML IV SCH (07:00)
[2016-05-31] MEDS: PANTOPRAZOLE IV 80 MG in DEXTROSE 5% 100 ML IV SCH (07:03)
[2016-05-31 08:02] LABS: BASOPHILS % 0.3 % (0.0-2.0); EOSINOPHILS # 0.3 10^3/ul (0.0-0.5); EOSINOPHILS % 3.5 % (0.0-7.0); HEMATOCRIT 26.4 % (42.0-52.0); HEMOGLOBIN 8.7 g/dl (14.0-18.0); LYMPHOCYTES # 1.1 10^3/ul (0.8-2.9); LYMPHOCYTES % 14.8 % (15.0-51.0); MEAN CORPUSCULAR HEMOGLOBIN 30.1 pg (29.0-33.0); MEAN CORPUSCULAR HGB CONC 33.1 g/dl (32.0-37.0); MEAN PLATELET VOLUME 8.5 fl (7.4-10.4); MONOCYTE # 0.6 10^3/ul (0.3-0.9); MONOCYTES % 7.4 % (0.0-11.0); NEUTROPHIL # 5.7 10^3/ul (1.6-7.5); PLATELET COUNT 274 10^3/UL (140-440); RED CELL DISTRIBUTION WIDTH 17.3 % (11.5-14.5); UNCORRECTED WBC 7.7 10^3/ul (4.8-10.8); WHITE BLOOD COUNT 7.7 10^3/ul (4.8-10.8)
[2016-05-31 08:03] LABS: CONDITION 1; LH ANALYZER COMMENTS 1
[2016-05-31 08:04] LABS: ALBUMIN 2.2 g/dl (3.3-4.9)
[2016-05-31 08:07] LABS: ALBUMIN/GLOBULIN RATIO 0.5; BILIRUBIN,INDIRECT 0.4 mg/dl (0-1.1); BILIRUBIN,TOTAL 0.4 mg/dl (0.2-1.3); CREATININE 0.46 mg/dl (0.61-1.24); TOTAL PROTEIN 6.6 g/dl (6.1-8.1)
[2016-05-31 08:08] LABS: CALCIUM 7.7 mg/dl (8.4-10.2); CREATININE 0.46 mg/dl (0.61-1.24)
[2016-05-31 08:09] LABS: CALCIUM 7.7 mg/dl (8.4-10.2); MAGNESIUM 1.8 mg/dl (1.7-2.5); PHOSPHORUS 2.9 mg/dl (2.5-4.9)
[2016-05-31] MEDS: LACTULOSE ENEMA 1,000 ML BTL PR SCH (08:22)
--- NOTE | 2016-05-31 10:25 | PN ---
Date/Time of Note Date/Time of Note DATE: 05/31/16 TIME: 10:23 Assessment/Plan VTE Prophylaxis VTE Prophylaxis Intervention: contraindicated VTE Contraindication Reason: blood coagulation disorder Lines/Catheters IV C[facility]ter Type ([facility] PICC Line Urinary Cath still in place: Yes Assessment/Plan Chief Complaint/Hosp Course A/P 1. Ac Resp failure; airway protection/encephalopathy; stable; extubated; Cont ST care, +/- diet; cont tpn. nobody to sign for peg. 2. Upper GiB/ E varices; sp EGD x2/ ligation; DC octreotide/ppi drip; oked by Gi. 3. Hepatic encephalopathy; lactulose/librium; check ammonia friday 4. Ac/ chr anemia 2/2 Blood loss 5. Etoh liver dz (ascites/ coagulopathy/ varices) 6. Homelessness/ Ftt 7. Resolving aspiration pneumonia & uti 8. Hypernatremia ~ hypovolemic? 9. Ftt; DC to SNF if accepted. 10. Hypothyroidism- new 11. Past etoh; cont supportive care. -Dispo: Bioethics consult pending as there is no family and prognosis is poor. Problems: Subjective 24 Hr Interval Summary Free Text/Dictation S- awake, alert, follows 1 step commands. poor voice strength. no active bleed. for meeting @1pm. Exam/Review of Systems Vital Signs Vitals Vital Signs Date Time Temp Pulse Resp B/P Pulse Ox O2 Delivery O2 Flow Rate FiO2 05/31/16 08:50 98.8 94 22 135/93 94 05/31/16 08:04 21 05/31/16 04:25 Room Air 05/29/16 04:07 3.0 Intake and Output 05/30/16 05/30/16 05/31/16 15:00 23:00 07:00 Intake Total 515 ml 885 ml 1275.0 ml Output Total 80 ml 1250 ml 1800 ml Balance 435 ml -365 ml -525.0 ml Exam Constitutional: alert Respiratory: diminished breath sounds Cardiovascular: regular rate and rhythm Gastrointestinal: non-tender (nd;no r r g), soft Extremities: other (no edema) Results Result Diagram: 05/31/16 0709 05/31/16 0709 Results 24 hrs Laboratory Tests Test 05/30/16 12:13 05/30/16 18:18 05/31/16 00:38 05/31/16 05:59 Bedside Glucose 112 98 110 95 Test 05/31/16 07:09 Alanine Aminotransferase (ALT/SGPT) 45 Albumin 2.2 L Albumin/Globulin Ratio 0.50 Alkaline Phosphatase 199 H Anion Gap 12 Aspartate Amino Transf (AST/SGOT) 57 H Basophils # 0.0 Basophils % 0.3 Blood Morphology Comment Blood Urea Nitrogen 8 Calcium Level 7.7 L Carbon Dioxide Level 24 Chloride Level 104 Creatinine 0.46 L Direct Bilirubin 0.00 Eosinophils # 0.3 Eosinophils % 3.5 Globulin 4.40 H Glucose Level 83 Hematocrit 26.4 L Hemoglobin 8.7 L Indirect Bilirubin 0.4 Lymphocytes # 1.1 Lymphocytes % 14.8 L Magnesium Level 1.8 Mean Corpuscular Hemoglobin 30.1 Mean Corpuscular Hemoglobin Concent 33.1 Mean Corpuscular Volume 91.0 Mean Platelet Volume 8.5 Monocytes # 0.6 Monocytes % 7.4 Neutrophils # 5.7 Neutrophils % 74.0 Nucleated Red Blood Cells # 0.0 Nucleated Red Blood Cells % 0.0 Phosphorus Level 2.9 Platelet Count 274 Potassium Level 4.0 Prealbumin 4.3 L Red Blood Count 2.90 L Red Cell Distribution Width 17.3 H Sodium Level 136 Total Bilirubin 0.4 Total Protein 6.6 White Blood Count 7.7 Medications Medications Current Medications Ondansetron HCl (Zofran Inj) 4 mg Q6H PRN IV NAUSEA AND/OR VOMITING; Start 05/07/16 at 19:30 Morphine Sulfate (morphine) 2 mg Q4H PRN IV SEVERE PAIN LEVEL 7-10 Last administered on 05/23/16at 04:03; Admin Dose 2 MG; Start 05/07/16 at 19:30 Docusate Sodium (Colace) 100 mg Q12H PRN PO CONSTIPATION; Start 05/07/16 at 19: 30 IV Flush 10 ml 10 ml PRN PRN IV IV PROTOCOL; Start 05/17/16 at 12:00 Octreotide Acetate 500 mcg/ Dextrose 50 ml @ 2.5 mls/hr Q20H IV Last administered on 05/31/16at 00:40; Admin Dose 2.5 MLS/HR; Start 05/19/16 at 12: 00 Pantoprazole 80 mg/Dextrose 100 ml @ 10 mls/hr Q10H IV Last administered on at 07:03; Admin Dose 10 MLS/HR; Start 05/19/16 at 12:00 Total Parenteral Nutrition (Tpn) 1,000 ml @ 40 mls/hr Q24H IV Last administered on 05/30/16 16:06; Admin Dose 40 MLS/HR; Start 05/24/16 at 15:00 Diagnostic Test (Pha) 1 ea 1 ea Q6 XX Last administered on 05/30/16 18:19; Admin Dose 1 EA; Start 05/28/16 at 12:00 Sodium Chloride (NS) 1,000 ml @ 50 mls/hr Q20H IV Last administered on 07:00; Admin Dose 50 MLS/HR; Start 05/28/16 at 11:30 Lorazepam 1 mg 1 mg Q8 PRN IV AGITATION/ANXIETY; Start 05/28/16 at 22:00 Levofloxacin/ Dextrose (Levaquin 500mg/ D5W 100 ml (Pmx)) 100 ml @ 100 mls/hr Q24H IVPB Last administered on 05/30/16 18:12; Admin Dose 100 MLS/HR; Start 05/28/16 at 18:00 Levothyroxine Sodium (Synthroid Iv) 50 mcg DAILY@06 IV Last administered on at 06:43; Admin Dose 50 MCG; Start 05/29/16 at 06:00 Lactulose (Lactulose Enema) 100 ml DAILY [place] Last administered on 05/31/16 08: 22; Admin Dose 100 ML; Start 05/31/16 at 09:00 Miscellaneous Information 1 ea NOTE XX ; Start 05/30/16 at 11:30 CAROLINA TY MD May 31, 2016 10:25
--- NOTE | 2016-05-31 11:39 | RADRPT ---
PROCEDURE: US Abdomen limited . CLINICAL INDICATION: Ascites TECHNIQUE: Multiple real-time images were acquired of the patient's abdomen utilizing a high resol ution transducer. COMPARISON: 05/07/2016 FINDINGS: There is a [id number] amount of ascites. RPTAT: AA IMPRESSION: Moderate to large amount of ascites. .Dale Ayala MD, MD Date Time Electronically viewed and signed by .Dale Ayala MD, MD on 05/31/2016 11:39 .S/
--- NOTE | 2016-05-31 13:08 | CONS ---
Date/Time of Note Date/Time of Note DATE: 05/31/16 TIME: 13:07 Assessment/Plan Assessment/Plan Chief Complaint/Hosp Course 70 yo male, with alcoholic cirrhosis admitted for upper GI bleed, who on 05/17 was noted to be hypotensive secondary to a drop in HG who subsequently developed a leukocytosis and bandemia, with UCx showing GNR and RCs showing klebsiella and branhamella catarrhalis. Although bandemia is usually seen with septic shock it can also been seen with hypovolemic shock which may have happened on 05/17. Leukocytosis is also very common with ascites and may be elevated secondary to the peritoneal inflammation. The peripheral smear was reviewed which demonstrated no evidence of malignant cells. -likely reactive from infection, hypovolemic shock, peritoneal inflammation. If repeat CBC confirms increased WBC/bands, would recommend repeating cultures. Now leukocytosis resolved. Continue to monitor. -anemia secondary to GIB, stable ~ 8, ?melena. Repeat CBC, if remains low would transfuse < 8 and call GI. -continue supportive care -continue to follow CBC with wbc improving, follow as needed Problems: Consultation Date/Type/Reason Admit Date/Time May 07, 2016 at 14:39 Initial Consult Date 05/20/16 Type of Consultation: Hematology/Oncology Referring Provider: KASH OLVERA 24 HR Interval Summary Free Text/Dictation Patient is more alert today. Had wheezing earlier per nursing but improved with breathing treatment. Exam/Review of Systems Vital Signs Vitals Vital Signs Date Time Temp Pulse Resp B/P Pulse Ox O2 Delivery O2 Flow Rate FiO2 05/31/16 12:51 84 05/31/16 12:33 98.6 22 112/67 98 05/31/16 08:04 21 05/31/16 04:25 Room Air 05/29/16 04:07 3.0 Intake and Output 05/30/16 05/30/16 05/31/16 15:00 23:00 07:00 Intake Total 515 ml 885 ml 1275.0 ml Output Total 80 ml 1250 ml 1800 ml Balance 435 ml -365 ml -525.0 ml Exam Constitutional: frail, non-verbal Head: normocephalic Neck: supple Respiratory: other (ronchi) Cardiovascular: regular rate and rhythm Gastrointestinal: non-tender, soft Musculoskeletal: nl extremities to inspection Results Result Diagram: 05/31/16 0709 05/31/16 0709 Results 24 hrs Laboratory Tests Test 05/30/16 18:18 05/31/16 00:38 05/31/16 05:59 05/31/16 07:09 Bedside Glucose 98 110 95 Alanine Aminotransferase (ALT/SGPT) 45 Albumin 2.2 L Albumin/Globulin Ratio 0.50 Alkaline Phosphatase 199 H Anion Gap 12 Aspartate Amino Transf (AST/SGOT) 57 H Basophils # 0.0 Basophils % 0.3 Blood Morphology Comment Blood Urea Nitrogen 8 Calcium Level 7.7 L Carbon Dioxide Level 24 Chloride Level 104 Creatinine 0.46 L Direct Bilirubin 0.00 Eosinophils # 0.3 Eosinophils % 3.5 Globulin 4.40 H Glucose Level 83 Hematocrit 26.4 L Hemoglobin 8.7 L Indirect Bilirubin 0.4 Lymphocytes # 1.1 Lymphocytes % 14.8 L Magnesium Level 1.8 Mean Corpuscular Hemoglobin 30.1 Mean Corpuscular Hemoglobin Concent 33.1 Mean Corpuscular Volume 91.0 Mean Platelet Volume 8.5 Monocytes # 0.6 Monocytes % 7.4 Neutrophils # 5.7 Neutrophils % 74.0 Nucleated Red Blood Cells # 0.0 Nucleated Red Blood Cells % 0.0 Phosphorus Level 2.9 Platelet Count 274 Potassium Level 4.0 Prealbumin 4.3 L Red Blood Count 2.90 L Red Cell Distribution Width 17.3 H Sodium Level 136 Total Bilirubin 0.4 Total Protein 6.6 White Blood Count 7.7 Test 05/31/16 12:40 Bedside Glucose 106 Medications Medications Current Medications Ondansetron HCl (Zofran Inj) 4 mg Q6H PRN IV NAUSEA AND/OR VOMITING; Start 05/07/16 at 19:30 Morphine Sulfate (morphine) 2 mg Q4H PRN IV SEVERE PAIN LEVEL 7-10 Last administered on 05/23/16at 04:03; Admin Dose 2 MG; Start 05/07/16 at 19:30 Docusate Sodium (Colace) 100 mg Q12H PRN PO CONSTIPATION; Start 05/07/16 at 19: 30 IV Flush 10 ml 10 ml PRN PRN IV IV PROTOCOL; Start 05/17/16 at 12:00 Total Parenteral Nutrition (Tpn) 1,000 ml @ 40 mls/hr Q24H IV Last administered on 05/30/16at 16:06; Admin Dose 40 MLS/HR; Start 05/24/16 at 15:00 Diagnostic Test (Pha) (Accucheck) 1 ea Q6 XX Last administered on 05/31/16at 12 :30; Admin Dose 1 EA; Start 05/28/16 at 12:00 Lorazepam 1 mg 1 mg Q8 PRN IV AGITATION/ANXIETY; Start 05/28/16 at 22:00 Levofloxacin/ Dextrose (Levaquin 500mg/ D5W 100 ml (Pmx)) 100 ml @ 100 mls/hr Q24H IVPB Last administered on 05/30/16at 18:12; Admin Dose 100 MLS/HR; Start 05/28/16 at 18:00 Levothyroxine Sodium (Synthroid Iv) 50 mcg DAILY@06 IV Last administered on at 06:43; Admin Dose 50 MCG; Start 05/29/16 at 06:00 Lactulose (Lactulose Enema) 100 ml DAILY [place] Last administered on 05/31/16at 08: 22; Admin Dose 100 ML; Start 05/31/16 at 09:00 Miscellaneous Information 1 ea NOTE XX ; Start 05/30/16 at 11:30 Pantoprazole (Protonix Iv) 40 mg DAILY@06 IV ; Start 06/01/16 at 06:00 TOSTANISLAW MD May 31, 2016 13:08
[2016-05-31] MEDS ORDERED: ALBUTEROL 0.083% (NEB) 2.5 MG/3 ML AMP HHN ONE (13:30)
--- NOTE | 2016-05-31 14:37 | RADRPT ---
PROCEDURE: XR Chest. CLINICAL INDICATION: Shortness of breath TECHNIQUE: Chest AP portable. COMPARISON: 05/29/2016 FINDINGS: No change in left arm PICC line The mediastinal structures are unremarkable. The heart is normal in size and configuration. There is no change in the congestive heart failure. There is no change in the RLL and LLL patchy consolid ations (edema/pneumonia). There is a small left pleural effusion. The axial skeleton is unremarkab le. IMPRESSION: No change in congestive heart failure No change in RLL and LLL patchy consolidations (edema/pneumonia) Small left pleural effusion RPTAT: HGDB .Parth Thomas MD, MD Date Time Electronically viewed and signed by .Parth Thomas MD, on 05/31/2016 14:36 .B/
[2016-05-31] MEDS: TPN 1,000 ML IV SCH (16:12)
[2016-05-31] MEDS: LEVOFLOXACIN 500MG/D5W (PMX) 100 ML IVPB SCH (18:05)
[2016-06-01] VITALS (14 sets, daily range): BP systolic 105–139; BP diastolic 65–82; PULSE 80–98; RESP 15–21
[2016-06-01] MEDS: ALBUTEROL 0.5% (NEB) 2.5 MG/0.5 ML AMP HHN SCH ×3 (01:14→17:12)
[2016-06-01] MEDS: ACETYLCYSTEINE 20% 4 ML VIAL NEB SCH ×3 (01:14→17:28)
[2016-06-01] MEDS: IPRATROPIUM (NEB) 0.5 MG/2.5 ML AMP HHN SCH ×3 (01:14→17:12)
--- NOTE | 2016-06-01 02:47 | RADRPT ---
PROCEDURE: MR Brain without contrast. CLINICAL INDICATION: Change mental status. Dysarthria. TECHNIQUE: MRI brain without contrast was performed on a high field MRI system. Sequences include sagittal T1, axial T1, FLAIR, T2, diffusion and coronal GRE weighted. No contrast material was ut ilized. COMPARISON: MRI brain 05/20/2016, CT brain 05/16/2016 . FINDINGS: There is unchanged encephalomalacia in the anterior inferior aspect of the bilateral frontal lobes. There is otherwise age appropriate central and peripheral atrophy. There is no midline shift. The re is a mild degree of supratentorial periventricular and subcortical white matter hyperintensities on FLAIR and T2-weighted images. There is no acute stroke on diffusion weighted images. There is no mass lesion. There is no intracranial hemorrhage or abnormal extra-axial fluid collection. There is no flow void identified in the distal left vertebral artery. Remainder the major intracranial ar teries demonstrates flow voids. There is normal signal intensity in the major dural venous sinuses. Foramen magnum is unremarkable. There is partial opacification posterior left ethmoid air cell.. There is fluid in the bilateral mastoid air cells. IMPRESSION: 1. No acute stroke or hemorrhage. 2. Redemonstrated anterior inferior frontal lobe encephalomalacia, most commonly from old trauma. 3. Nonspecific white matter changes most commonly seen with small vessel disease. 4. Age indeterminate of flow void in the distal left vertebral artery. Flow voids are noted in the remainder the major intracranial arteries. 5. Opacified left posterior ethmoid air cell. 6. Fluid in the bilateral mastoid air cells. RPTAT: HMVK .Po Davis MD, MD Date Time Electronically viewed and signed by .Po Davis MD, MD on 06/01/2016 02:46 .K/
[2016-06-01] MEDS: PANTOPRAZOLE 40 MG INJ IV SCH (05:46)
[2016-06-01] MEDS: LEVOTHYROXINE 100 MCG VIAL IV SCH (05:46)
[2016-06-01] MEDS: ACCUCHECK XX SCH ×4 (05:47→17:11)
[2016-06-01 07:09] LABS: BASOPHIL # 0.1 10^3/ul (0.0-0.1); BASOPHILS % 0.9 % (0.0-2.0); EOSINOPHILS # 0.2 10^3/ul (0.0-0.5); EOSINOPHILS % 2.7 % (0.0-7.0); HEMATOCRIT 28.8 % (42.0-52.0); HEMOGLOBIN 9.4 g/dl (14.0-18.0); LYMPHOCYTES % 13.5 % (15.0-51.0); MEAN CORPUSCULAR HEMOGLOBIN 29.7 pg (29.0-33.0); MEAN CORPUSCULAR HGB CONC 32.6 g/dl (32.0-37.0); MEAN CORPUSCULAR VOLUME 91.1 fl (82.0-101.0); MEAN PLATELET VOLUME 8.3 fl (7.4-10.4); MONOCYTE # 0.6 10^3/ul (0.3-0.9); MONOCYTES % 8.6 % (0.0-11.0); NEUTROPHIL # 5.6 10^3/ul (1.6-7.5); NEUTROPHILS % 74.3 % (39.0-77.0); PLATELET COUNT 264 10^3/UL (140-440); RED BLOOD COUNT 3.16 10^6/ul (4.70-6.10); RED CELL DISTRIBUTION WIDTH 17.4 % (11.5-14.5); UNCORRECTED WBC 7.5 10^3/ul (4.8-10.8); WHITE BLOOD COUNT 7.5 10^3/ul (4.8-10.8)
[2016-06-01 07:10] LABS: CONDITION 1; LH ANALYZER COMMENTS 1
[2016-06-01 07:38] LABS: ALBUMIN 2.3 g/dl (3.3-4.9)
[2016-06-01 07:39] LABS: POTASSIUM 3.9 mmol/L (3.5-5.1)
[2016-06-01 07:41] LABS: ALBUMIN/GLOBULIN RATIO 0.51; BILIRUBIN,INDIRECT 0.4 mg/dl (0-1.1); BILIRUBIN,TOTAL 0.4 mg/dl (0.2-1.3); CREATININE 0.48 mg/dl (0.61-1.24); TOTAL PROTEIN 6.8 g/dl (6.1-8.1)
[2016-06-01] MEDS: LACTULOSE ENEMA 1,000 ML BTL PR SCH (09:39)
--- NOTE | 2016-06-01 12:25 | PN ---
Date/Time of Note Date/Time of Note DATE: 06/01/16 TIME: 12:21 Assessment/Plan VTE Prophylaxis VTE Prophylaxis Intervention: contraindicated VTE Contraindication Reason: blood coagulation disorder Lines/Catheters IV Catheter Type (from Nrsg): PICC Line Central line still needed: Yes (tpn) Urinary Cath still in place: Yes Reason Cath still needed: skin wounds contaminated by urine Assessment/Plan Chief Complaint/Hosp Course A/P 1. Ac Resp failure; airway protection/encephalopathy; stable; extubated; Cont ST care, +/- diet; Cont tpn. nobody to sign for peg. 2. Upper GiB/ E varices; sp EGD x2/ ligation; DCed octreotide/ppi drip. 3. Hepatic encephalopathy; lactulose/librium; check ammonia friday 4. Ac/ chr anemia 2/2 Blood loss 5. Etoh liver dz (ascites/ coagulopathy/ varices) Try lasix/clonidine; +/- tap 6. Homelessness/ Ftt 7. Resolving aspiration pneumonia & uti 8. Hypernatremia ~ hypovolemic? 9. Ftt; DC to SNF if accepted. 10. Hypothyroidism- new 11. Past etoh; cont supportive care. -Dispo: Sp Bioethics consult as prognosis is poor. Niece is out of state. Problems: Subjective 24 Hr Interval Summary Free Text/Dictation S- awake , alert, follows 1 step commands. Exam/Review of Systems Vital Signs Vitals Vital Signs Date Time Temp Pulse Resp B/P Pulse Ox O2 Delivery O2 Flow Rate FiO2 06/01/16 12:07 85 06/01/16 08:18 22 95 21 06/01/16 04:00 98.3 139/77 05/31/16 04:25 Room Air 05/29/16 04:07 3.0 Intake and Output 05/31/16 05/31/16 06/01/16 15:00 23:00 07:00 Intake Total 625 ml 440 ml Output Total 350 ml 1850 ml Balance 275 ml -1410 ml Exam Constitutional: alert Respiratory: clear to auscultation Cardiovascular: regular rate and rhythm Gastrointestinal: non-tender (ND; no r r g), soft Extremities: other (no edema) Results Result Diagram: 06/01/1662206/01/16622 Results 24 hrs Laboratory Tests Test 05/31/16 12:40 05/31/16 18:13 06/01/16 00:20 06/01/16 05:37 Bedside Glucose 106 94 95 98 Test 06/01/16 06:23 06/01/16 11:26 Alanine Aminotransferase (ALT/SGPT) 44 Albumin 2.3 L Albumin/Globulin Ratio 0.51 Alkaline Phosphatase 206 H Ammonia 30 Anion Gap 14 Aspartate Amino Transf (AST/SGOT) 63 H Basophils # 0.1 Basophils % 0.9 Blood Morphology Comment Blood Urea Nitrogen 7 Calcium Level 8.0 L Carbon Dioxide Level 24 Chloride Level 104 Creatinine 0.48 L Direct Bilirubin 0.00 Eosinophils # 0.2 Eosinophils % 2.7 Globulin 4.50 H Glucose Level 92 Hematocrit 28.8 L Hemoglobin 9.4 L Indirect Bilirubin 0.4 Lymphocytes # 1.0 Lymphocytes % 13.5 L Mean Corpuscular Hemoglobin 29.7 Mean Corpuscular Hemoglobin Concent 32.6 Mean Corpuscular Volume 91.1 Mean Platelet Volume 8.3 Monocytes # 0.6 Monocytes % 8.6 Neutrophils # 5.6 Neutrophils % 74.3 Nucleated Red Blood Cells # 0.0 Nucleated Red Blood Cells % 0.0 Platelet Count 264 Potassium Level 3.9 Red Blood Count 3.16 L Red Cell Distribution Width 17.4 H Sodium Level 138 Total Bilirubin 0.4 Total Protein 6.8 White Blood Count 7.5 Bedside Glucose 87 Medications Medications Current Medications Ondansetron HCl (Zofran Inj) 4 mg Q6H PRN IV NAUSEA AND/OR VOMITING; Start 05/07/16 at 19:30 Morphine Sulfate (morphine) 2 mg Q4H PRN IV SEVERE PAIN LEVEL 7-10 Last administered on 05/23/16at 04:03; Admin Dose 2 MG; Start 05/07/16 at 19:30 Docusate Sodium (Colace) 100 mg Q12H PRN PO CONSTIPATION; Start 05/07/16 at 19: 30 IV Flush 10 ml 10 ml PRN PRN IV IV PROTOCOL; Start 05/17/16 at 12:00 Total Parenteral Nutrition (Tpn) 1,000 ml @ 40 mls/hr Q24H IV Last administered on 05/31/16at 16:12; Admin Dose 40 MLS/HR; Start 05/24/16 at 15:00 Diagnostic Test (Pha) (Accucheck) 1 ea Q6 XX Last administered on 05/31/16at 18 :15; Admin Dose 1 EA; Start 05/28/16 at 12:00 Lorazepam 1 mg 1 mg Q8 PRN IV AGITATION/ANXIETY; Start 05/28/16 at 22:00 Levofloxacin/ Dextrose (Levaquin 500mg/ D5W 100 ml (Pmx)) 100 ml @ 100 mls/hr Q24H IVPB Last administered on 05/31/16at 18:05; Admin Dose 100 MLS/HR; Start 05/28/16 at 18:00 Levothyroxine Sodium (Synthroid Iv) 50 mcg DAILY@06 IV Last administered on at 05:46; Admin Dose 50 MCG; Start 05/29/16 at 06:00 Lactulose (Lactulose Enema) 100 ml DAILY [place] Last administered on 06/01/16at 09: 39; Admin Dose 100 ML; Start 05/31/16 at 09:00 Miscellaneous Information 1 ea NOTE XX ; Start 05/30/16 at 11:30 Pantoprazole (Protonix Iv) 40 mg DAILY@06 IV Last administered on 06/01/16at 05 :46; Admin Dose 40 MG; Start 06/01/16 at 06:00 CAROLINA TY MD Jun 01, 2016 12:25
[2016-06-01] MEDS: FUROSEMIDE 40 MG INJ IV SCH ×2 (12:54→17:27)
[2016-06-01] MEDS: CLONIDINE 0.1 MG/24 HR PATCH TRANSDERM SCH (13:53)
[2016-06-01] MEDS: TPN 1,000 ML IV SCH ×2 (15:00→17:54)
[2016-06-01] MEDS ORDERED: VITAMIN A & D 5 GM OINT PACKET TOP ONE (16:30)
[2016-06-01] MEDS: LEVOFLOXACIN 500MG/D5W (PMX) 100 ML IVPB SCH (17:27)
[2016-06-02] VITALS (16 sets, daily range): BP systolic 111–153; BP diastolic 59–92; PULSE 76–98; RESP 15–18
[2016-06-02] MEDS: ACETYLCYSTEINE 20% 4 ML VIAL NEB SCH ×3 (00:43→16:19)
[2016-06-02] MEDS: ALBUTEROL 0.5% (NEB) 2.5 MG/0.5 ML AMP HHN SCH ×3 (00:43→16:19)
[2016-06-02] MEDS: IPRATROPIUM (NEB) 0.5 MG/2.5 ML AMP HHN SCH ×3 (00:43→16:19)
[2016-06-02] MEDS: ACCUCHECK XX SCH ×4 (06:00→17:03)
[2016-06-02] MEDS: PANTOPRAZOLE 40 MG INJ IV SCH (06:37)
[2016-06-02] MEDS: LEVOTHYROXINE 100 MCG VIAL IV SCH (06:38)
[2016-06-02] MEDS: FUROSEMIDE 40 MG INJ IV SCH ×2 (06:38→17:04)
[2016-06-02 07:00] LABS: BASOPHILS % 0.1 % (0.0-2.0); EOSINOPHILS # 0.1 10^3/ul (0.0-0.5); EOSINOPHILS % 1.2 % (0.0-7.0); HEMATOCRIT 30.7 % (42.0-52.0); HEMOGLOBIN 10.1 g/dl (14.0-18.0); LYMPHOCYTES # 1.2 10^3/ul (0.8-2.9); MEAN CORPUSCULAR HEMOGLOBIN 29.9 pg (29.0-33.0); MEAN CORPUSCULAR HGB CONC 32.9 g/dl (32.0-37.0); MEAN PLATELET VOLUME 8.5 fl (7.4-10.4); MONOCYTE # 0.7 10^3/ul (0.3-0.9); MONOCYTES % 8.8 % (0.0-11.0); NEUTROPHIL # 5.9 10^3/ul (1.6-7.5); NEUTROPHILS % 74.9 % (39.0-77.0); PLATELET COUNT 240 10^3/UL (140-440); RED BLOOD COUNT 3.37 10^6/ul (4.70-6.10); RED CELL DISTRIBUTION WIDTH 17.3 % (11.5-14.5); UNCORRECTED WBC 7.9 10^3/ul (4.8-10.8); WHITE BLOOD COUNT 7.9 10^3/ul (4.8-10.8)
[2016-06-02 07:19] LABS: CONDITION 1; LH ANALYZER COMMENTS 1
[2016-06-02 07:27] LABS: ALBUMIN 2.6 g/dl (3.3-4.9)
[2016-06-02 07:28] LABS: POTASSIUM 4.7 mmol/L (3.5-5.1)
[2016-06-02 07:30] LABS: BILIRUBIN,INDIRECT 0.5 mg/dl (0-1.1); BILIRUBIN,TOTAL 0.5 mg/dl (0.2-1.3); CREATININE 0.46 mg/dl (0.61-1.24); TOTAL PROTEIN 7.8 g/dl (6.1-8.1)
[2016-06-02 07:31] LABS: CALCIUM 8.6 mg/dl (8.4-10.2)
[2016-06-02 07:37] LABS: ALBUMIN/GLOBULIN RATIO 0.5
[2016-06-02] MEDS: LACTULOSE ENEMA 1,000 ML BTL PR SCH (09:50)
--- NOTE | 2016-06-02 11:22 | PN ---
Date/Time of Note Date/Time of Note DATE: 06/02/16 TIME: 11:18 Assessment/Plan VTE Prophylaxis VTE Prophylaxis Intervention: contraindicated VTE Contraindication Reason: blood coagulation disorder Lines/Catheters IV [facility] Type [facility] PICC Line Urinary Cath still in place: Yes Reason Cath still needed: skin wounds contaminated by urine Assessment/Plan Chief Complaint/Hosp Course A/P 1. Ac Resp failure; airway protection/encephalopathy; stable/ extubated. Cont ST care, +/- diet/ tpn holiday? nobody to sign for peg...Niece?? 2. Upper GiB/ E varices; sp EGD x2/ ligation; DCed octreotide/ppi drip. 3. Hepatic encephalopathy; lactulose/librium; ammonia improved 4. Ac/ chr anemia 2/2 Blood loss 5. Etoh liver dz (ascites/coagulopathy/varices). Try lasix/clonidine; +/- tap 6. Homelessness/ Ftt 7. Resolving aspiration pneumonia & uti 8. Hypernatremia ~ hypovolemic; resolved 9. Ftt; DC to SNF if accepted. 10. Hypothyroidism- new 11. Past etoh; cont supportive care. -Dispo: Sp Bioethics consulted as prognosis is poor. Niece is out of state. Problems: Subjective 24 Hr Interval Summary Free Text/Dictation S- awake, alert, follows 1 step commands. tolerating tpn. Exam/Review of Systems Vital Signs Vitals Vital Signs Date Time Temp Pulse Resp B/P Pulse Ox O2 Delivery O2 Flow Rate FiO2 06/02/16 08:17 84 06/02/16 08:11 98.1 18 153/92 100 06/02/16 07:37 21 06/02/16 06:00 Room Air Intake and Output 06/01/16 06/01/16 06/02/16 15:00 23:00 07:00 Intake Total 540 ml 480 ml Output Total 150 ml 2400 ml 1850 ml Balance -150 ml -1860 ml -1370 ml Exam Constitutional: alert Head: other (some bilat temporal wasting) Respiratory: clear to auscultation Cardiovascular: regular rate and rhythm Gastrointestinal: non-tender (nd; no r r g), soft Extremities: other (no edema) Results Result Diagram: 06/02/16 0541 06/02/16 0541 Results 24 hrs Laboratory Tests Test 06/01/16 11:26 06/01/16 17:02 06/02/16 05:41 06/02/16 06:41 Bedside Glucose 87 90 85 Alanine Aminotransferase (ALT/SGPT) 38 Albumin 2.6 L Albumin/Globulin Ratio 0.50 Alkaline Phosphatase 233 H Anion Gap 16 Aspartate Amino Transf (AST/SGOT) 80 H Basophils # 0.0 Basophils % 0.1 Blood Morphology Comment Blood Urea Nitrogen 11 Calcium Level 8.6 Carbon Dioxide Level 21 Chloride Level 106 Creatinine 0.46 L Direct Bilirubin 0.00 Eosinophils # 0.1 Eosinophils % 1.2 Globulin 5.20 H Glucose Level 82 Hematocrit 30.7 L Hemoglobin 10.1 L Indirect Bilirubin 0.5 Lymphocytes # 1.2 Lymphocytes % 15.0 Mean Corpuscular Hemoglobin 29.9 Mean Corpuscular Hemoglobin Concent 32.9 Mean Corpuscular Volume 91.0 Mean Platelet Volume 8.5 Monocytes # 0.7 Monocytes % 8.8 Neutrophils # 5.9 Neutrophils % 74.9 Nucleated Red Blood Cells # 0.0 Nucleated Red Blood Cells % 0.0 Platelet Count 240 Potassium Level 4.7 Red Blood Count 3.37 L Red Cell Distribution Width 17.3 H Sodium Level 138 Total Bilirubin 0.5 Total Protein 7.8 # White Blood Count 7.9 Medications Medications Current Medications Ondansetron HCl (Zofran Inj) 4 mg Q6H PRN IV NAUSEA AND/OR VOMITING; Start 05/07/16 at 19:30 Morphine Sulfate (morphine) 2 mg Q4H PRN IV SEVERE PAIN LEVEL 7-10 Last administered on 05/23/16at 04:03; Admin Dose 2 MG; Start 05/07/16 at 19:30 Docusate Sodium (Colace) 100 mg Q12H PRN PO CONSTIPATION; Start 05/07/16 at 19: 30 IV Flush 10 ml 10 ml PRN PRN IV IV PROTOCOL; Start 05/17/16 at 12:00 Total Parenteral Nutrition (Tpn) 1,000 ml @ 40 mls/hr Q24H IV Last administered on 06/01/16at 17:54; Admin Dose 40 MLS/HR; Start 05/24/16 at 15:00 Diagnostic Test (Pha) (Accucheck) 1 ea Q6 XX Last administered on 05/31/16at 18 :15; Admin Dose 1 EA; Start 05/28/16 at 12:00 Lorazepam (Ativan) 1 mg Q8 PRN IV AGITATION/ANXIETY; Start 05/28/16 at 22:00 Levothyroxine Sodium (Synthroid Iv) 50 mcg DAILY@06 IV Last administered on 06/02 06:38; Admin Dose 50 MCG; Start 05/29/16 at 06:00 Lactulose (Lactulose Enema) [address] Last administered on 06/02/16 09:50 ; Admin Dose 100 ML; Start 05/31/16 at 09:00 Miscellaneous Information 1 ea NOTE XX ; Start 05/30/16 at 11:30 Pantoprazole (Protonix Iv) 40 mg DAILY@06 IV Last administered on 06/02/16 06: 37; Admin Dose 40 MG; Start 06/01/16 at 06:00 Clonidine HCl (Catapres-Tts 1 Patch) 1 patch Q7D TRANSDERM Last administered on 06/01/16at 13:53; Admin Dose 1 PATCH; Start 06/01/16 at 13:30 CAROLINA TY MD Jun 02, 2016 11:22
[2016-06-02] MEDS ORDERED: MAGNESIUM HYDROXIDE 30ML CUP PO ONE (14:00)
[2016-06-02] MEDS: TPN 1,000 ML IV SCH (17:04)
[2016-06-02] MEDS: HALOPERIDOL 5 MG INJ IM SCH (21:00)
[2016-06-03] VITALS (15 sets, daily range): BP systolic 108–131; BP diastolic 62–77; PULSE 72–93; RESP 16–20
[2016-06-03] MEDS: ACETYLCYSTEINE 20% 4 ML VIAL NEB SCH ×3 (00:09→15:19)
[2016-06-03] MEDS: IPRATROPIUM (NEB) 0.5 MG/2.5 ML AMP HHN SCH ×3 (00:09→15:19)
[2016-06-03] MEDS: ALBUTEROL 0.5% (NEB) 2.5 MG/0.5 ML AMP HHN SCH ×3 (00:09→15:19)
[2016-06-03] MEDS: ACCUCHECK XX SCH ×4 (06:00→18:00)
[2016-06-03] MEDS: LEVOTHYROXINE 100 MCG VIAL IV SCH (06:15)
[2016-06-03] MEDS: PANTOPRAZOLE 40 MG INJ IV SCH (06:15)
[2016-06-03 07:25] LABS: BASOPHILS % 0.5 % (0.0-2.0); EOSINOPHILS # 0.2 10^3/ul (0.0-0.5); EOSINOPHILS % 2.7 % (0.0-7.0); HEMATOCRIT 27.3 % (42.0-52.0); LYMPHOCYTES # 1.6 10^3/ul (0.8-2.9); LYMPHOCYTES % 18.1 % (15.0-51.0); MEAN CORPUSCULAR HEMOGLOBIN 29.6 pg (29.0-33.0); MEAN CORPUSCULAR VOLUME 89.8 fl (82.0-101.0); MEAN PLATELET VOLUME 8.3 fl (7.4-10.4); MONOCYTE # 0.8 10^3/ul (0.3-0.9); MONOCYTES % 8.8 % (0.0-11.0); NEUTROPHIL # 6.4 10^3/ul (1.6-7.5); NEUTROPHILS % 69.9 % (39.0-77.0); PLATELET COUNT 276 10^3/UL (140-440); RED BLOOD COUNT 3.04 10^6/ul (4.70-6.10); RED CELL DISTRIBUTION WIDTH 17.2 % (11.5-14.5); UNCORRECTED WBC 9.1 10^3/ul (4.8-10.8); WHITE BLOOD COUNT 9.1 10^3/ul (4.8-10.8)
[2016-06-03 07:28] LABS: CONDITION 1; LH ANALYZER COMMENTS 1
[2016-06-03 07:52] LABS: ALBUMIN 2.4 g/dl (3.3-4.9)
[2016-06-03 07:54] LABS: CREATININE 0.45 mg/dl (0.61-1.24)
[2016-06-03 07:55] LABS: ALBUMIN/GLOBULIN RATIO 0.47; BILIRUBIN,INDIRECT 0.4 mg/dl (0-1.1); BILIRUBIN,TOTAL 0.4 mg/dl (0.2-1.3); TOTAL PROTEIN 7.5 g/dl (6.1-8.1)
[2016-06-03 07:56] LABS: CALCIUM 8.2 mg/dl (8.4-10.2)
[2016-06-03 08:04] LABS: MAGNESIUM 1.8 mg/dl (1.7-2.5); PHOSPHORUS 3.8 mg/dl (2.5-4.9)
[2016-06-03] MEDS: LACTULOSE ENEMA 1,000 ML BTL PR SCH (11:01)
[2016-06-03] MEDS: TPN 1,000 ML IV SCH (15:31)
--- NOTE | 2016-06-03 16:01 | PN ---
Date/Time of Note Date/Time of Note DATE: 06/03/16 TIME: 15:57 Assessment/Plan VTE Prophylaxis VTE Prophylaxis Intervention: contraindicated VTE Contraindication Reason: blood coagulation disorder, bleeding Lines/Catheters IV Catheter Type (from Nrs): PICC Line Central line still needed: Yes Urinary Cath still in place: Yes Reason Cath still needed: urinary retention Assessment/Plan Chief Complaint/Hosp Course A/P 1. Ac Resp failure; airway protection/encephalopathy; stable/ extubated. - Cont ST care, +/- diet/ tpn holiday? nobody to sign for peg...Niece?? 2. Upper GiB/ E varices; sp EGD x2/ ligation; DCed octreotide/ppi drip. - monitor, f/u GI rec's - on TPN as well 3. Hepatic encephalopathy; lactulose/librium; ammonia improved 4. Ac/ chr anemia 2/2 Blood loss - H/H stable - monitor 5. Etoh liver dz (ascites/coagulopathy/varices). Try lasix/clonidine; +/- tap 6. Homelessness/ Ftt 7. Resolving aspiration pneumonia & uti 8. Hypernatremia ~ hypovolemic; resolved 9. Ftt; DC to SNF if accepted. 10. Hypothyroidism- new 11. Past etoh; cont supportive care. -Dispo: Sp Bioethics consulted as prognosis is poor. Niece is out of state. Problems: Subjective 24 Hr Interval Summary Free Text/Dictation Still tolerating TPN, no acute events overnight. Exam/Review of Systems Vital Signs Vitals Vital Signs Date Time Temp Pulse Resp B/P Pulse Ox O2 Delivery O2 Flow Rate FiO2 06/03/16 15:51 98.7 61 20 108/63 98 06/03/16 15:19 Nasal Cannula 2.0 06/03/16 00:09 21 Intake and Output 06/02/16 06/02/16 06/03/16 15:00 23:00 07:00 Intake Total 480 ml 480 ml Output Total 2100 ml 1400 ml Balance -1620 ml -920 ml Exam Constitutional: alert Head: other (some bilat temporal wasting) Respiratory: clear to auscultation Cardiovascular: regular rate and rhythm Gastrointestinal: non-tender (nd; no r r g), soft Extremities: other (no edema) Results Result Diagram: 06/03/1662506/03/16625 Results 24 hrs Laboratory Tests Test 06/02/16 17:02 06/03/16 06:14 06/03/16 06:26 06/03/16 12:28 Bedside Glucose 83 87 171 Alanine Aminotransferase (ALT/SGPT) 40 Albumin 2.4 L Albumin/Globulin Ratio 0.47 Alkaline Phosphatase 221 H Ammonia 14 Anion Gap 13 Aspartate Amino Transf (AST/SGOT) 66 H Basophils # 0.0 Basophils % 0.5 Blood Morphology Comment Blood Urea Nitrogen 12 Calcium Level 8.2 L Carbon Dioxide Level 24 Chloride Level 103 Creatinine 0.45 L Direct Bilirubin 0.00 Eosinophils # 0.2 Eosinophils % 2.7 Globulin 5.10 H Glucose Level 89 Hematocrit 27.3 L Hemoglobin 9.0 L Indirect Bilirubin 0.4 Lymphocytes # 1.6 Lymphocytes % 18.1 Magnesium Level 1.8 Mean Corpuscular Hemoglobin 29.6 Mean Corpuscular Hemoglobin Concent 33.0 Mean Corpuscular Volume 89.8 Mean Platelet Volume 8.3 Monocytes # 0.8 Monocytes % 8.8 Neutrophils # 6.4 Neutrophils % 69.9 Nucleated Red Blood Cells # 0.0 Nucleated Red Blood Cells % 0.0 Phosphorus Level 3.8 Platelet Count 276 Potassium Level 4.0 Red Blood Count 3.04 L Red Cell Distribution Width 17.2 H Sodium Level 136 Total Bilirubin 0.4 Total Protein 7.5 White Blood Count 9.1 Medications Medications Current Medications Ondansetron HCl (Zofran Inj) 4 mg Q6H PRN IV NAUSEA AND/OR VOMITING; Start 05/07/16 at 19:30 Morphine Sulfate (morphine) 2 mg Q4H PRN IV SEVERE PAIN LEVEL 7-10 Last administered on 05/23/16at 04:03; Admin Dose 2 MG; Start 05/07/16 at 19:30 Docusate Sodium (Colace) 100 mg Q12H PRN PO CONSTIPATION; Start 05/07/16 at 19: 30 IV Flush 10 ml 10 ml PRN PRN IV IV PROTOCOL; Start 05/17/16 at 12:00 Total Parenteral Nutrition (Tpn) 1,000 ml @ 40 mls/hr Q24H IV Last administered on 06/03/16t 15:31; Admin Dose 40 MLS/HR; Start 05/24/16 at 15:00 Diagnostic Test (Pha) (Accucheck) 1 ea Q6 XX Last administered on 06/03/16 12: 29; Admin Dose 1 EA; Start 05/28/16 at 12:00 Lorazepam (Ativan) 1 mg Q8 PRN IV AGITATION/ANXIETY; Start 05/28/16 at 22:00 Levothyroxine Sodium (Synthroid Iv) 50 mcg DAILY@06 IV Last administered on 06/03 06:15; Admin Dose 50 MCG; Start 05/29/16 at 06:00 Miscellaneous Information 1 ea NOTE XX ; Start 05/30/16 at 11:30 Pantoprazole (Protonix Iv) 40 mg DAILY@06 IV Last administered on 06/03/16 06: 15; Admin Dose 40 MG; Start 06/01/16 at 06:00 Clonidine HCl (Catapres-Tts 1 Patch) 1 patch Q7D TRANSDERM Last administered on 06/01/16at 13:53; Admin Dose 1 PATCH; Start 06/01/16 at 13:30 Lactulose (Lactulose Enema) 100 ml [place] Last administered on 06/03/16 11:01; Admin Dose 100 ML; Start 06/03/16 at 09:00 Haloperidol (Haldol) 5 mg HS IM ; Start 06/02/16 at 21:00 ADONIS PARTIDA Jun 03, 2016 16:01
[2016-06-03] MEDS: HALOPERIDOL 5 MG INJ IM SCH (22:06)
[2016-06-04] MEDS: IPRATROPIUM (NEB) 0.5 MG/2.5 ML AMP HHN SCH ×3 (00:34→15:07)
[2016-06-04] MEDS: ALBUTEROL 0.083% (NEB) 2.5 MG/3 ML AMP HHN PRN (00:34)
[2016-06-04] MEDS: ACETYLCYSTEINE 20% 4 ML VIAL NEB SCH ×3 (00:34→15:07)
[2016-06-04] MEDS: ALBUTEROL 0.5% (NEB) 2.5 MG/0.5 ML AMP HHN SCH ×3 (00:39→15:07)
[2016-06-04] MEDS: ACCUCHECK XX SCH ×5 (06:00→23:59)
[2016-06-04] MEDS: LEVOTHYROXINE 100 MCG VIAL IV SCH (06:06)
[2016-06-04] MEDS: PANTOPRAZOLE 40 MG INJ IV SCH (06:06)
[2016-06-04 08:06] VITALS: BP 101/60; RESP 16
--- NOTE | 2016-06-04 14:57 | PN ---
Date/Time of Note Date/Time of Note DATE: 06/04/16 TIME: 14:55 Assessment/Plan VTE Prophylaxis VTE Prophylaxis Intervention: contraindicated VTE Contraindication Reason: blood coagulation disorder, bleeding Lines/Catheters IV Catheter Type (from Nrs): PICC Line Central line still needed: Yes Urinary Cath still in place: Yes Reason Cath still needed: urinary retention Assessment/Plan Chief Complaint/Hosp Course A/P: 70 M with UGI bleeding on admission: 1. Ac Resp failure; airway protection/encephalopathy; stable/ extubated. - Cont ST care, +/- diet/ tpn holiday? nobody to sign for peg...Niece?? - per ST rec's, will get modified BS test today 2. Upper GiB/ E varices; sp EGD x2/ ligation; DCed octreotide/ppi drip. - monitor, f/u GI rec's - on TPN as well 3. Hepatic encephalopathy; lactulose/librium; ammonia improved 4. Ac/ chr anemia 2/2 Blood loss - H/H stable - monitor 5. Etoh liver dz (ascites/coagulopathy/varices). Try lasix/clonidine; +/- tap 6. Homelessness/ Ftt 7. Resolving aspiration pneumonia & uti 8. Hypernatremia ~ hypovolemic; resolved 9. Ftt; DC to SNF if accepted. 10. Hypothyroidism- new 11. Past etoh; cont supportive care. -Dispo: Sp Bioethics consulted as prognosis is poor. Niece is out of state. Problems: Subjective 24 Hr Interval Summary Free Text/Dictation Pt seen by ST who is recommending modified BS test. Otherwise no acute events overnight. Exam/Review of Systems Vital Signs Vitals Vital Signs Date Time Temp Pulse Resp B/P Pulse Ox O2 Delivery O2 Flow Rate FiO2 06/04/16 08:26 97 20 96 Nasal Cannula 3.0 06/04/16 08:06 98.4 101/60 06/03/16 00:09 21 Intake and Output 06/03/16 06/03/16 06/04/16 15:00 23:00 07:00 Output Total 2100 ml 450 ml Balance -2100 ml -450 ml Exam Constitutional: alert Head: other (some bilat temporal wasting) Respiratory: clear to auscultation Cardiovascular: regular rate and rhythm Gastrointestinal: non-tender (nd; no r r g), soft Extremities: other (no edema) Results Result Diagram: 06/03/1662506/03/16625 Results 24 hrs Laboratory Tests Test 06/04/16 00:12 06/04/16 06:08 06/04/16 11:48 Bedside Glucose 124 118 90 Medications Medications Current Medications Ondansetron HCl (Zofran Inj) 4 mg Q6H PRN IV NAUSEA AND/OR VOMITING; Start 05/07/16 at 19:30 Morphine Sulfate (morphine) 2 mg Q4H PRN IV SEVERE PAIN LEVEL 7-10 Last administered on 05/23/16at 04:03; Admin Dose 2 MG; Start 05/07/16 at 19:30 Docusate Sodium (Colace) 100 mg Q12H PRN PO CONSTIPATION; Start 05/07/16 at 19: 30 IV Flush 10 ml 10 ml PRN PRN IV IV PROTOCOL; Start 05/17/16 at 12:00 Total Parenteral Nutrition (Tpn) 1,000 ml @ 40 mls/hr Q24H IV Last administered on 06/03/16 15:31; Admin Dose 40 MLS/HR; Start 05/24/16 at 15:00 Diagnostic Test (Pha) (Accucheck) 1 ea Q6 XX Last administered on 06/04/16 12: 00; Admin Dose 1 EA; Start 05/28/16 at 12:00 Lorazepam (Ativan) 1 mg Q8 PRN IV AGITATION/ANXIETY; Start 05/28/16 at 22:00 Levothyroxine Sodium (Synthroid Iv) 50 mcg DAILY@06 IV Last administered on 06/04 06:06; Admin Dose 50 MCG; Start 05/29/16 at 06:00 Miscellaneous Information 1 ea NOTE XX ; Start 05/30/16 at 11:30 Pantoprazole (Protonix Iv) 40 mg DAILY@06 IV Last administered on 06/04/16 06: 06; Admin Dose 40 MG; Start 06/01/16 at 06:00 Clonidine HCl (Catapres-Tts 1 Patch) 1 patch Q7D TRANSDERM Last administered on 06/01/16at 13:53; Admin Dose 1 PATCH; Start 06/01/16 at 13:30 Lactulose (Lactulose Enema) 100 ml [place] Last administered on 06/03/16 11:01; Admin Dose 100 ML; Start 06/03/16 at 09:00 Haloperidol (Haldol) 5 mg HS IM Last administered on 06/03/16 22:06; Admin Dose 5 MG; Start 06/02/16 at 21:00 ADONIS PARTIDA Jun 04, 2016 14:57
[2016-06-04] MEDS: TPN 1,000 ML IV SCH (15:00)
[2016-06-04 20:23] VITALS: BP 101/57; RESP 18
[2016-06-04 20:30] VITALS: BP 101/57; PULSE 82; RESP 18
[2016-06-04] MEDS: HALOPERIDOL 5 MG INJ IM SCH (21:07)
[2016-06-05] MEDS: IPRATROPIUM (NEB) 0.5 MG/2.5 ML AMP HHN SCH ×3 (00:21→17:00)
[2016-06-05] MEDS: ALBUTEROL 0.5% (NEB) 2.5 MG/0.5 ML AMP HHN SCH ×3 (00:21→17:00)
[2016-06-05] MEDS: ACETYLCYSTEINE 20% 4 ML VIAL NEB SCH ×3 (00:21→17:00)
[2016-06-05] MEDS: TPN 1,000 ML IV SCH (02:30)
[2016-06-05] MEDS: PANTOPRAZOLE 40 MG INJ IV SCH (05:13)
[2016-06-05] MEDS: LEVOTHYROXINE 100 MCG VIAL IV SCH (05:16)
[2016-06-05] MEDS: ACCUCHECK XX SCH ×3 (05:26→18:05)
[2016-06-05 05:37] LABS: BASOPHILS % 0.5 % (0.0-2.0); EOSINOPHILS # 0.2 10^3/ul (0.0-0.5); HEMATOCRIT 26.1 % (42.0-52.0); HEMOGLOBIN 8.6 g/dl (14.0-18.0); LYMPHOCYTES # 1.1 10^3/ul (0.8-2.9); LYMPHOCYTES % 15.6 % (15.0-51.0); MEAN CORPUSCULAR HEMOGLOBIN 29.5 pg (29.0-33.0); MEAN CORPUSCULAR VOLUME 89.6 fl (82.0-101.0); MEAN PLATELET VOLUME 8.3 fl (7.4-10.4); MONOCYTE # 0.8 10^3/ul (0.3-0.9); MONOCYTES % 11.5 % (0.0-11.0); NEUTROPHIL # 4.9 10^3/ul (1.6-7.5); NEUTROPHILS % 69.4 % (39.0-77.0); PLATELET COUNT 193 10^3/UL (140-440); RED BLOOD COUNT 2.91 10^6/ul (4.70-6.10); RED CELL DISTRIBUTION WIDTH 16.9 % (11.5-14.5); UNCORRECTED WBC 7.1 10^3/ul (4.8-10.8); WHITE BLOOD COUNT 7.1 10^3/ul (4.8-10.8)
[2016-06-05 05:42] LABS: CONDITION 1; LH ANALYZER COMMENTS 1
[2016-06-05 05:52] LABS: ALBUMIN 2.4 g/dl (3.3-4.9)
[2016-06-05 05:53] LABS: POTASSIUM 4.2 mmol/L (3.5-5.1)
[2016-06-05 05:55] LABS: ALBUMIN/GLOBULIN RATIO 0.48; BILIRUBIN,INDIRECT 0.3 mg/dl (0-1.1); BILIRUBIN,TOTAL 0.3 mg/dl (0.2-1.3); CREATININE 0.46 mg/dl (0.61-1.24); TOTAL PROTEIN 7.3 g/dl (6.1-8.1)
[2016-06-05 05:56] LABS: CALCIUM 8.3 mg/dl (8.4-10.2)
[2016-06-05 07:42] VITALS: BP 107/60; RESP 16
[2016-06-05] MEDS: LACTULOSE ENEMA 1,000 ML BTL PR SCH (09:00)
--- NOTE | 2016-06-05 11:01 | RADRPT ---
PROCEDURE: Video swallowing study CLINICAL INDICATION: Dysphagia TECHNIQUE: Modified barium swallowing study was performed with the speech pathologist. Fluoroscop y was utilized for the procedure. Imaging was confined to the oral pharyngeal and cervical phases o f the swallowing mechanism. Fluoroscopic guidance was utilized during a modified barium swallowing study with multiple swallows of thin and thick liquids. COMPARISON: None available FINDINGS: Aspiration was seen with thin liquid. 3.7 minutes of fluoroscopy time was utilized during the proce dure. IMPRESSION: 1. Aspiration with thin liquids. 2. Please refer to swallowing therapist's recommendations for future feedings. RPTAT: QQ .Jose Luis Aguayo MD, MD Date Time Electronically viewed and signed by .Jose Luis Aguayo MD, on 06/05/2016 11:01 .A/
--- NOTE | 2016-06-05 15:23 | PN ---
Date/Time of Note Date/Time of Note DATE: 06/05/16 TIME: 15:16 Assessment/Plan VTE Prophylaxis VTE Prophylaxis Intervention: contraindicated VTE Contraindication Reason: blood coagulation disorder, bleeding Lines/Catheters IV Catheter Type (from Nrs): PICC Line Central line still needed: Yes Urinary Cath still in place: Yes Reason Cath still needed: urinary retention Assessment/Plan Chief Complaint/Hosp Course A/P: 70 M with UGI bleeding on admission: 1. Ac Resp failure; airway protection/encephalopathy; stable/ extubated a few days ago. - Cont ST care, +/- diet/ tpn holiday? nobody to sign for peg...Niece?? - pt a bit more alert today however but still lethargic - perhaps as he becomes more alert we will ask him about PEG placement. - continue TPN 2. Upper GiB/ E varices; sp EGD x2/ ligation; DCed octreotide/ppi drip. - monitor, f/u GI rec's - on TPN as well 3. Hepatic encephalopathy; lactulose/librium; ammonia improved 4. Ac/ chr anemia 2/2 Blood loss - H/H stable - monitor 5. Etoh liver dz (ascites/coagulopathy/varices). Try lasix/clonidine; +/- tap 6. Homelessness/ Ftt 7. Resolving aspiration pneumonia & uti 8. Hypernatremia ~ hypovolemic; resolved 9. Ftt; DC to SNF if accepted. 10. Hypothyroidism- new 11. Past etoh; cont supportive care. -Dispo: Sp Bioethics consulted earlier this admission as prognosis is poor. Niece is out of state. Problems: Subjective 24 Hr Interval Summary Free Text/Dictation No acute events overnight, worked with PT today. Still weak overall. Had BS test , but did not pass it. Exam/Review of Systems Vital Signs Vitals Vital Signs Date Time Temp Pulse Resp B/P Pulse Ox O2 Delivery O2 Flow Rate FiO2 06/05/16 08:54 Nasal Cannula 2.0 06/05/16 07:42 97.8 87 16 107/60 97 06/03/16 00:09 21 Intake and Output 06/04/16 06/04/16 06/05/16 15:00 23:00 07:00 Intake Total 1000 ml Output Total 450 ml 550 ml Balance -450 ml 450 ml Exam Constitutional: alert, but still quite lethargic Head: other (some bilat temporal wasting) Respiratory: clear to auscultation Cardiovascular: regular rate and rhythm Gastrointestinal: non-tender (nd; no r r g), soft Extremities: other (no edema) Results Result Diagram: 06/05/16 0453 06/05/16 0453 Results 24 hrs Laboratory Tests Test 06/04/16 18:21 06/04/16 23:50 06/05/16 04:53 06/05/16 05:06 Bedside Glucose 96 114 104 Alanine Aminotransferase (ALT/SGPT) 40 Albumin 2.4 L Albumin/Globulin Ratio 0.48 Alkaline Phosphatase 208 H Ammonia 13 Anion Gap 8 Aspartate Amino Transf (AST/SGOT) 71 H Basophils # 0.0 Basophils % 0.5 Blood Morphology Comment Blood Urea Nitrogen 12 Calcium Level 8.3 L Carbon Dioxide Level 27 Chloride Level 104 Creatinine 0.46 L Direct Bilirubin 0.00 Eosinophils # 0.2 Eosinophils % 3.0 Globulin 4.90 H Glucose Level 91 Hematocrit 26.1 L Hemoglobin 8.6 L Indirect Bilirubin 0.3 Lymphocytes # 1.1 Lymphocytes % 15.6 Mean Corpuscular Hemoglobin 29.5 Mean Corpuscular Hemoglobin Concent 33.0 Mean Corpuscular Volume 89.6 Mean Platelet Volume 8.3 Monocytes # 0.8 Monocytes % 11.5 H Neutrophils # 4.9 Neutrophils % 69.4 Nucleated Red Blood Cells # 0.0 Nucleated Red Blood Cells % 0.0 Platelet Count 193 # Potassium Level 4.2 Red Blood Count 2.91 L Red Cell Distribution Width 16.9 H Sodium Level 135 Total Bilirubin 0.3 Total Protein 7.3 White Blood Count 7.1 # Test 06/05/16 11:32 Bedside Glucose 93 Medications Medications Current Medications Ondansetron HCl (Zofran Inj) 4 mg Q6H PRN IV NAUSEA AND/OR VOMITING; Start 05/07/16 at 19:30 Morphine Sulfate (morphine) 2 mg Q4H PRN IV SEVERE PAIN LEVEL 7-10 Last administered on 05/23/16at 04:03; Admin Dose 2 MG; Start 05/07/16 at 19:30 Docusate Sodium (Colace) 100 mg Q12H PRN PO CONSTIPATION; Start 05/07/16 at 19: 30 IV Flush 10 ml 10 ml PRN PRN IV IV PROTOCOL; Start 05/17/16 at 12:00 Total Parenteral Nutrition (Tpn) 1,000 ml @ 40 mls/hr Q24H IV Last administered on 06/05/16 02:30; Admin Dose 40 MLS/HR; Start 05/24/16 at 15:00 Diagnostic Test (Pha) (Accucheck) 1 ea Q6 XX Last administered on 06/05/16 11: 33; Admin Dose 1 EA; Start 05/28/16 at 12:00 Lorazepam (Ativan) 1 mg Q8 PRN IV AGITATION/ANXIETY; Start 05/28/16 at 22:00 Levothyroxine Sodium (Synthroid Iv) 50 mcg DAILY@06 IV Last administered on 06/05 05:16; Admin Dose 50 MCG; Start 05/29/16 at 06:00 Miscellaneous Information 1 ea NOTE XX ; Start 05/30/16 at 11:30 Pantoprazole (Protonix Iv) 40 mg DAILY@06 IV Last administered on 06/05/16 05: 13; Admin Dose 40 MG; Start 06/01/16 at 06:00 Clonidine HCl (Catapres-Tts 1 Patch) 1 patch Q7D TRANSDERM Last administered on 06/01/16at 13:53; Admin Dose 1 PATCH; Start 06/01/16 at 13:30 Lactulose (Lactulose Enema) 100 ml [place] Last administered on 06/05/16 09:00; Admin Dose 100 ML; Start 06/03/16 at 09:00 Haloperidol (Haldol) 5 mg HS IM Last administered on 06/04/16 21:07; Admin Dose 5 MG; Start 06/02/16 at 21:00 ADONIS PARTIDA Jun 05, 2016 15:23
[2016-06-05 19:30] VITALS: BP 102/62; RESP 16
[2016-06-05] MEDS: HALOPERIDOL 5 MG INJ IM SCH (20:27)
[2016-06-05 20:30] VITALS: BP 102/62; PULSE 96; RESP 16
[2016-06-06] MEDS: ALBUTEROL 0.5% (NEB) 2.5 MG/0.5 ML AMP HHN SCH ×3 (02:22→17:32)
[2016-06-06] MEDS: IPRATROPIUM (NEB) 0.5 MG/2.5 ML AMP HHN SCH ×3 (02:22→17:32)
[2016-06-06] MEDS: ACETYLCYSTEINE 20% 4 ML VIAL NEB SCH ×3 (02:22→17:25)
[2016-06-06] MEDS: PANTOPRAZOLE 40 MG INJ IV SCH (05:07)
[2016-06-06] MEDS: LEVOTHYROXINE 100 MCG VIAL IV SCH (05:07)
[2016-06-06] MEDS: ACCUCHECK XX SCH ×4 (05:16→17:55)
[2016-06-06 08:42] VITALS: BP 107/61; RESP 20
--- NOTE | 2016-06-06 14:25 | PN ---
Date/Time of Note Date/Time of Note DATE: 06/06/16 TIME: 14:20 Assessment/Plan VTE Prophylaxis VTE Prophylaxis Intervention: contraindicated VTE Contraindication Reason: blood coagulation disorder, bleeding Lines/Catheters IV Catheter Type (from Nrs): PICC Line Central line still needed: Yes Urinary Cath still in place: Yes Reason Cath still needed: urinary retention Assessment/Plan Chief Complaint/Hosp Course A/P: 70 M with UGI bleeding on admission: 1. Ac Resp failure; airway protection/encephalopathy; stable/ extubated a few days ago. - Cont ST care, +/- diet/ tpn holiday? nobody to sign for peg...Niece?? - pt a bit more alert today, still lethargic overall - when asked about PEG placement with clinical lab assistant today, pt appears receptive to this. - continue TPN for now, as pt becomes more alert, will ask him again in 1-2 days again about PEG placement. 2. Upper GiB/ E varices; sp EGD x2/ ligation; DCed octreotide/ppi drip. - monitor, f/u GI rec's - on TPN as well 3. Hepatic encephalopathy; lactulose/librium; ammonia improved - will re-check EtOH level today as well. 4. Ac/ chr anemia 2/2 Blood loss - H/H stable - monitor 5. Etoh liver dz (ascites/coagulopathy/varices). Try lasix/clonidine; +/- tap 6. Homelessness/ Ftt 7. Resolving aspiration pneumonia & uti 8. Hypernatremia ~ hypovolemic; resolved 9. Ftt; DC to SNF if accepted. 10. Hypothyroidism- new - monitor 11. Past etoh; cont supportive care. 12. neck stiffness - start low dose flexeril TID, monitor -Dispo: Sp Bioethics consulted earlier this admission as prognosis is poor. Niece is out of state. Problems: Subjective 24 Hr Interval Summary Free Text/Dictation Pt slightly more alert today, did not pas swallow eval. Complaining of some neck stiffness. Exam/Review of Systems Vital Signs Vitals Vital Signs Date Time Temp Pulse Resp B/P Pulse Ox O2 Delivery O2 Flow Rate FiO2 06/06/16 08:42 98.8 98 20 107/61 100 06/06/16 08:30 2.0 06/06/16 08:30 Nasal Cannula 06/03/16 00:09 21 Intake and Output 06/05/16 06/05/16 06/06/16 15:00 23:00 07:00 Output Total 600 ml 750 ml Balance -600 ml -750 ml Exam Constitutional: alert, still lethargic but answering questions, hoarse Head: other (some bilat temporal wasting), PERRL, EOMI Respiratory: clear to auscultation Cardiovascular: regular rate and rhythm Gastrointestinal: non-tender (nd; no r r g), soft Extremities: other (no edema) Results Result Diagram: 06/05/16 0453 06/05/16 0453 Results 24 hrs Laboratory Tests Test 06/05/16 17:50 06/06/16 00:03 06/06/16 05:06 06/06/16 12:09 Bedside Glucose 106 110 100 131 Medications Medications Current Medications Ondansetron HCl (Zofran Inj) 4 mg Q6H PRN IV NAUSEA AND/OR VOMITING; Start 05/07/16 at 19:30 Morphine Sulfate (morphine) 2 mg Q4H PRN IV SEVERE PAIN LEVEL 7-10 Last administered on 05/23/16at 04:03; Admin Dose 2 MG; Start 05/07/16 at 19:30 Docusate Sodium (Colace) 100 mg Q12H PRN PO CONSTIPATION; Start 05/07/16 at 19: 30 IV Flush 10 ml 10 ml PRN PRN IV IV PROTOCOL; Start 05/17/16 at 12:00 Total Parenteral Nutrition (Tpn) 1,000 ml @ 40 mls/hr Q24H IV Last administered on 06/05/16 02:30; Admin Dose 40 MLS/HR; Start 05/24/16 at 15:00 Diagnostic Test (Pha) (Accucheck) 1 ea Q6 XX Last administered on 06/06/16 12: 10; Admin Dose 1 EA; Start 05/28/16 at 12:00 Lorazepam (Ativan) 1 mg Q8 PRN IV AGITATION/ANXIETY; Start 05/28/16 at 22:00 Levothyroxine Sodium (Synthroid Iv) 50 mcg DAILY@06 IV Last administered on 06/06 05:07; Admin Dose 50 MCG; Start 05/29/16 at 06:00 Miscellaneous Information 1 ea NOTE XX ; Start 05/30/16 at 11:30 Pantoprazole (Protonix Iv) 40 mg DAILY@06 IV Last administered on 06/06/16 05: 07; Admin Dose 40 MG; Start 06/01/16 at 06:00 Clonidine HCl (Catapres-Tts 1 Patch) 1 patch Q7D TRANSDERM Last administered on 06/01/16at 13:53; Admin Dose 1 PATCH; Start 06/01/16 at 13:30 Lactulose (Lactulose Enema) 100 ml [place] Last administered on 06/05/16 09:00; Admin Dose 100 ML; Start 06/03/16 at 09:00 Haloperidol (Haldol) 5 mg HS IM Last administered on 06/05/16 20:27; Admin Dose 5 MG; Start 06/02/16 at 21:00 Cyclobenzaprine HCl (Flexeril) 5 mg TID PO ; Start 06/06/16 at 21:00 ADONIS PARTIDA Jun 06, 2016 14:25
[2016-06-06] MEDS: TPN 1,000 ML IV SCH (15:45)
[2016-06-06] MEDS: CYCLOBENZAPRINE 10 MG TAB PO SCH (20:06)
[2016-06-06] MEDS: HALOPERIDOL 5 MG INJ IM SCH (20:09)
[2016-06-06 21:30] VITALS: BP 107/62; RESP 18
[2016-06-07] MEDS: ALBUTEROL 0.5% (NEB) 2.5 MG/0.5 ML AMP HHN SCH ×3 (00:15→16:41)
[2016-06-07] MEDS: ACETYLCYSTEINE 20% 4 ML VIAL NEB SCH ×3 (00:15→16:41)
[2016-06-07] MEDS: LEVOTHYROXINE 100 MCG VIAL IV SCH (05:28)
[2016-06-07] MEDS: PANTOPRAZOLE 40 MG INJ IV SCH (05:28)
[2016-06-07] MEDS: ACCUCHECK XX SCH ×4 (06:00→17:53)
[2016-06-07 06:06] LABS: HEMATOCRIT 25.8 % (42.0-52.0); HEMOGLOBIN 8.5 g/dl (14.0-18.0); MEAN CORPUSCULAR HEMOGLOBIN 29.4 pg (29.0-33.0); MEAN CORPUSCULAR HGB CONC 33.1 g/dl (32.0-37.0); MEAN CORPUSCULAR VOLUME 88.9 fl (82.0-101.0); MEAN PLATELET VOLUME 8.4 fl (7.4-10.4); PLATELET COUNT 224 10^3/UL (140-440); RED CELL DISTRIBUTION WIDTH 16.3 % (11.5-14.5); UNCORRECTED WBC 7.6 10^3/ul (4.8-10.8); WHITE BLOOD COUNT 7.6 10^3/ul (4.8-10.8)
[2016-06-07 06:26] LABS: ALBUMIN 2.4 g/dl (3.3-4.9); POTASSIUM 4.4 mmol/L (3.5-5.1)
[2016-06-07 06:28] LABS: CREATININE 0.42 mg/dl (0.61-1.24)
[2016-06-07 06:29] LABS: ALBUMIN/GLOBULIN RATIO 0.5; BILIRUBIN,INDIRECT 0.4 mg/dl (0-1.1); BILIRUBIN,TOTAL 0.4 mg/dl (0.2-1.3); TOTAL PROTEIN 7.2 g/dl (6.1-8.1)
[2016-06-07 06:30] LABS: CALCIUM 8.4 mg/dl (8.4-10.2)
[2016-06-07 06:52] LABS: CONDITION 1; LH ANALYZER COMMENTS 1
[2016-06-07 07:50] VITALS: BP 125/68; RESP 18
[2016-06-07] MEDS: IPRATROPIUM (NEB) 0.5 MG/2.5 ML AMP HHN SCH ×2 (08:15→16:41)
[2016-06-07] MEDS: LACTULOSE ENEMA 1,000 ML BTL PR SCH ×2 (09:00→16:02)
[2016-06-07] MEDS: CYCLOBENZAPRINE 10 MG TAB PO SCH ×2 (09:00→13:00)
[2016-06-07 09:42] LABS: BASOPHIL # 0.1 10^3/ul (0.0-0.1); EOSINOPHILS # 0.4 10^3/ul (0.0-0.5); LYMPHOCYTES # 1.1 10^3/ul (0.8-2.9); MONOCYTE # 0.8 10^3/ul (0.3-0.9); NEUTROPHIL # 5.2 10^3/ul (1.6-7.5)
--- NOTE | 2016-06-07 13:29 | PN ---
Date/Time of Note Date/Time of Note DATE: 06/07/16 TIME: 13:27 Assessment/Plan VTE Prophylaxis VTE Prophylaxis Intervention: contraindicated VTE Contraindication Reason: blood coagulation disorder, bleeding Lines/Catheters IV Catheter Type (from Nrsg): PICC Line Central line still needed: Yes Urinary Cath still in place: Yes Reason Cath still needed: urinary retention Assessment/Plan Chief Complaint/Hosp Course A/P: 70 M with UGI bleeding on admission: 1. Ac Resp failure; airway protection/encephalopathy; stable/ extubated a few days ago. - Cont ST care, +/- diet/ tpn holiday? nobody to sign for peg...Niece?? - pt a bit more alert today, still lethargic overall - when asked about PEG placement with butcher assistant yesterday, pt appears receptive to this. - continue TPN for now, will re-consult GI team about possible PEG placement 2. Upper GiB/ E varices; sp EGD x2/ ligation; DCed octreotide/ppi drip. - monitor, f/u GI rec's - on TPN as well 3. Hepatic encephalopathy; lactulose/librium; ammonia improved - lactulose 4. Ac/ chr anemia 2/2 Blood loss - H/H stable - monitor 5. Etoh liver dz (ascites/coagulopathy/varices). Try lasix/clonidine; +/- tap 6. Homelessness/ Ftt 7. Resolving aspiration pneumonia & uti 8. Hypernatremia ~ hypovolemic; resolved 9. Ftt; DC to SNF if accepted. 10. Hypothyroidism- new - monitor 11. Past etoh; cont supportive care. 12. neck stiffness - improved - continue flexeril BID, monitor -Dispo: Sp Bioethics consulted earlier this admission as prognosis is poor. Niece is out of state. Problems: Subjective 24 Hr Interval Summary Free Text/Dictation No acute events overnight, less pain smpts. Exam/Review of Systems Vital Signs Vitals Vital Signs Date Time Temp Pulse Resp B/P Pulse Ox O2 Delivery O2 Flow Rate FiO2 06/07/16 08:45 Nasal Cannula 2.0 06/07/16 08:16 95 20 06/07/16 08:10 96 06/07/16 07:50 97.8 125/68 Intake and Output 06/06/16 06/06/16 06/07/16 15:00 23:00 07:00 Intake Total 1000 ml Output Total 450 ml 700 ml Balance 1000 ml -450 ml -700 ml Exam Constitutional: alert, still lethargic but answering questions, hoarse Head: other (some bilat temporal wasting), PERRL, EOMI Respiratory: clear to auscultation Cardiovascular: regular rate and rhythm Gastrointestinal: non-tender (nd; no r r g), soft Extremities: other (no edema) Results Result Diagram: 06/07/16 0510 06/07/16 0510 Results 24 hrs Laboratory Tests Test 06/06/16 15:24 06/06/16 16:52 06/06/16 23:58 06/07/16 05:10 Ethyl Alcohol Level < 10.0 Bedside Glucose 93 122 Alanine Aminotransferase (ALT/SGPT) 42 Albumin 2.4 L Albumin/Globulin Ratio 0.50 Alkaline Phosphatase 217 H Ammonia 18 Anion Gap 14 Aspartate Amino Transf (AST/SGOT) 70 H Band Neutrophils % 1.0 Basophils # 0.1 Basophils % 1.0 Blood Morphology Comment Blood Urea Nitrogen 11 Calcium Level 8.4 Carbon Dioxide Level 24 Chloride Level 103 Creatinine 0.42 L Differential Comment MANUAL DIFF Direct Bilirubin 0.00 Eosinophils # 0.4 Eosinophils % 5.0 Globulin 4.80 H Glucose Level 86 Hematocrit 25.8 L Hemoglobin 8.5 L Indirect Bilirubin 0.4 Lymphocytes # 1.1 Lymphocytes % 14.0 L Mean Corpuscular Hemoglobin 29.4 Mean Corpuscular Hemoglobin Concent 33.1 Mean Corpuscular Volume 88.9 Mean Platelet Volume 8.4 Monocytes # 0.8 Monocytes % 10.0 Neutrophils # 5.2 Neutrophils % 69.0 Platelet Count 224 Potassium Level 4.4 Red Blood Count 2.90 L Red Cell Distribution Width 16.3 H Sodium Level 137 Total Bilirubin 0.4 Total Protein 7.2 White Blood Count 7.6 Test 06/07/16 05:35 06/07/16 12:19 Bedside Glucose 97 107 Medications Medications Current Medications Ondansetron HCl (Zofran Inj) 4 mg Q6H PRN IV NAUSEA AND/OR VOMITING; Start 05/07/16 at 19:30 Morphine Sulfate (morphine) 2 mg Q4H PRN IV SEVERE PAIN LEVEL 7-10 Last administered on 05/23/16at 04:03; Admin Dose 2 MG; Start 05/07/16 at 19:30 Docusate Sodium (Colace) 100 mg Q12H PRN PO CONSTIPATION; Start 05/07/16 at 19: 30 IV Flush 10 ml 10 ml PRN PRN IV IV PROTOCOL; Start 05/17/16 at 12:00 Total Parenteral Nutrition (Tpn) 1,000 ml @ 40 mls/hr Q24H IV Last administered on 06/06/16 15:45; Admin Dose 40 MLS/HR; Start 05/24/16 at 15:00 Diagnostic Test (Pha) (Accucheck) 1 ea Q6 XX Last administered on 06/06/16 17: 55; Admin Dose 1 EA; Start 05/28/16 at 12:00 Lorazepam (Ativan) 1 mg Q8 PRN IV AGITATION/ANXIETY; Start 05/28/16 at 22:00 Levothyroxine Sodium (Synthroid Iv) 50 mcg DAILY@06 IV Last administered on 06/07 05:28; Admin Dose 50 MCG; Start 05/29/16 at 06:00 Miscellaneous Information 1 ea NOTE XX ; Start 05/30/16 at 11:30 Pantoprazole (Protonix Iv) 40 mg DAILY@06 IV Last administered on 06/07/16 05: 28; Admin Dose 40 MG; Start 06/01/16 at 06:00 Clonidine HCl (Catapres-Tts 1 Patch) 1 patch Q7D TRANSDERM Last administered on 06/01/16at 13:53; Admin Dose 1 PATCH; Start 06/01/16 at 13:30 Lactulose (Lactulose Enema) 100 ml [place] Last administered on 06/05/16 09:00; Admin Dose 100 ML; Start 06/03/16 at 09:00 Haloperidol (Haldol) 5 mg HS IM Last administered on 06/06/16 20:09; Admin Dose 5 MG; Start 06/02/16 at 21:00 Cyclobenzaprine HCl (Flexeril) 5 mg TID PO ; Start 06/06/16 at 21:00 ADONIS PARTIDA Jun 07, 2016 13:29
[2016-06-07] MEDS: TPN 1,000 ML IV SCH (16:02)
[2016-06-07 19:42] VITALS: BP 132/79; RESP 16
[2016-06-07] MEDS: HALOPERIDOL 5 MG INJ IM SCH (20:37)
[2016-06-07] MEDS ORDERED: CYCLOBENZAPRINE 10 MG TAB PO SCH (21:00)
[2016-06-08] VITALS (8 sets, daily range): BP systolic 88–147; BP diastolic 52–69; PULSE 95–101; RESP 16–20
[2016-06-08] MEDS: ACETYLCYSTEINE 20% 4 ML VIAL NEB SCH ×4 (00:38→23:53)
[2016-06-08] MEDS: IPRATROPIUM (NEB) 0.5 MG/2.5 ML AMP HHN SCH ×4 (00:38→23:53)
[2016-06-08] MEDS: ALBUTEROL 0.5% (NEB) 2.5 MG/0.5 ML AMP HHN SCH ×4 (00:38→23:53)
[2016-06-08] MEDS: ACCUCHECK XX SCH ×4 (06:00→17:39)
[2016-06-08] MEDS: PANTOPRAZOLE 40 MG INJ IV SCH (06:07)
[2016-06-08] MEDS: LEVOTHYROXINE 100 MCG VIAL IV SCH (06:07)
[2016-06-08] MEDS: CLONIDINE 0.1 MG/24 HR PATCH TRANSDERM SCH (12:41)
[2016-06-08] MEDS: TPN 1,000 ML IV SCH (15:12)
--- NOTE | 2016-06-08 15:41 | PN ---
Date/Time of Note Date/Time of Note DATE: 06/08/16 TIME: 15:38 Assessment/Plan VTE Prophylaxis VTE Prophylaxis Intervention: contraindicated VTE Contraindication Reason: blood coagulation disorder, bleeding Lines/Catheters IV Catheter Type (from Nrs): PICC Line Central line still needed: Yes Urinary Cath still in place: Yes Reason Cath still needed: urinary retention Assessment/Plan Chief Complaint/Hosp Course A/P: 70 M with UGI bleeding on admission: 1. Ac Resp failure; airway protection/encephalopathy; stable/ extubated a few days ago. - Cont ST care, +/- diet/ tpn holiday? nobody to sign for peg...Niece?? - pt a bit more alert today, still lethargic overall - when asked about PEG placement with corporate real estate specialist 2 days ago, pt appears receptive to this. - continue TPN for now, have reconsulted GI team about possible PEG placement - awaiting there new input on this 2. Upper GiB/ E varices; sp EGD x2/ ligation; DCed octreotide/ppi drip. - monitor, f/u GI rec's - on TPN as well - ST re-eval in a few days 3. Hepatic encephalopathy; lactulose/librium; ammonia improved - lactulose 4. Ac/ chr anemia 2/2 Blood loss - H/H stable - monitor 5. Etoh liver dz (ascites/coagulopathy/varices). Try lasix/clonidine; +/- tap 6. Homelessness/ Ftt 7. Resolving aspiration pneumonia & uti 8. Hypernatremia ~ hypovolemic; resolved 9. Ftt; DC to SNF if accepted. 10. Hypothyroidism- new - monitor 11. Past etoh; cont supportive care. 12. neck stiffness - improved - continue morphine IV prn, and flexeril BID, monitor -Dispo: Sp Bioethics consulted earlier this admission as prognosis is poor. Niece is out of state. Problems: Subjective 24 Hr Interval Summary Free Text/Dictation Pt apparently had fever yesterday, presently afebrile - no acute events overnight. Exam/Review of Systems Vital Signs Vitals Vital Signs Date Time Temp Pulse Resp B/P Pulse Ox O2 Delivery O2 Flow Rate FiO2 06/08/16 15:00 98.1 06/08/16 11:56 73 18 108/59 97 06/08/16 08:14 2.0 06/08/16 08:14 Nasal Cannula 06/07/16 16:40 28 Intake and Output 06/07/16 06/07/16 06/08/16 15:00 23:00 07:00 Intake Total 440 ml 480 ml Output Total 500 ml 300 ml Balance -60 ml 180 ml Exam Constitutional: alert, still lethargic but answering questions, hoarse Head: other (some bilat temporal wasting), PERRL, EOMI Respiratory: clear to auscultation Cardiovascular: regular rate and rhythm Gastrointestinal: non-tender (nd; no r r g), soft Extremities: other (no edema) Results Result Diagram: 06/07/16 0510 06/07/16 0510 Results 24 hrs Laboratory Tests Test 06/07/16 17:44 06/08/16 00:10 06/08/16 06:20 06/08/16 11:37 Bedside Glucose 101 106 118 151 Medications Medications Current Medications Ondansetron HCl (Zofran Inj) 4 mg Q6H PRN IV NAUSEA AND/OR VOMITING; Start 05/07/16 at 19:30 Morphine Sulfate (morphine) 2 mg Q4H PRN IV SEVERE PAIN LEVEL 7-10 Last administered on 05/23/16at 04:03; Admin Dose 2 MG; Start 05/07/16 at 19:30 Docusate Sodium (Colace) 100 mg Q12H PRN PO CONSTIPATION; Start 05/07/16 at 19: 30 IV Flush 10 ml 10 ml PRN PRN IV IV PROTOCOL; Start 05/17/16 at 12:00 Total Parenteral Nutrition (Tpn) 1,000 ml @ 40 mls/hr Q24H IV Last administered on 06/08/16 15:12; Admin Dose 40 MLS/HR; Start 05/24/16 at 15:00 Diagnostic Test (Pha) (Accucheck) 1 ea Q6 XX Last administered on 06/08/16 11: 38; Admin Dose 1 EA; Start 05/28/16 at 12:00 Lorazepam (Ativan) 1 mg Q8 PRN IV AGITATION/ANXIETY; Start 05/28/16 at 22:00 Levothyroxine Sodium (Synthroid Iv) 50 mcg DAILY@06 IV Last administered on 06/08 06:07; Admin Dose 50 MCG; Start 05/29/16 at 06:00 Miscellaneous Information 1 ea NOTE XX ; Start 05/30/16 at 11:30 Pantoprazole (Protonix Iv) 40 mg DAILY@06 IV Last administered on 06/08/16 06: 07; Admin Dose 40 MG; Start 06/01/16 at 06:00 Clonidine HCl (Catapres-Tts 1 Patch) 1 patch Q7D TRANSDERM Last administered on 06/01/16at 13:53; Admin Dose 1 PATCH; Start 06/01/16 at 13:30 Lactulose (Lactulose Enema) 100 ml [place] Last administered on 06/07/16 16:02; Admin Dose 100 ML; Start 06/03/16 at 09:00 Haloperidol (Haldol) 5 mg HS IM Last administered on 06/07/16 20:37; Admin Dose 5 MG; Start 06/02/16 at 21:00 ADONIS PARTIDA Jun 08, 2016 15:41
[2016-06-08] MEDS: ACETAMINOPHEN 650 MG SUPP PR PRN (17:31)
[2016-06-08] MEDS ORDERED: ALTEPLASE (CATHFLO) 2 MG INJ CATHETER ONE (18:00)
[2016-06-08] MEDS ORDERED: GLUCOSE GEL 15 GRAM TUBE PO PRN ×2 (18:30)
[2016-06-08] MEDS ORDERED: GLUCOSE GEL 15 GRAM TUBE BUCCAL PRN (18:30)
[2016-06-08] MEDS ORDERED: DEXTROSE 50% 50 ML SYRINGE IV PRN ×2 (18:30)
[2016-06-08] MEDS ORDERED: GLUCAGON 1 MG INJ IM PRN (18:30)
[2016-06-08] MEDS ORDERED: ALTEPLASE (CATHFLO) 2 MG INJ CATHETER PRN (19:30)
[2016-06-08] MEDS: INSULIN ASPART [NOVOLOG] 3 ML PEN SC SCH (19:39)
[2016-06-08] MEDS: HALOPERIDOL 5 MG INJ IM SCH (20:47)
--- NOTE | 2016-06-08 21:24 | RADRPT ---
PROCEDURE: XR Chest. CLINICAL INDICATION: Shortness of breath. TECHNIQUE: Single frontal view. COMPARISON: 05 31 16. FINDINGS: The left arm PICC line remains in satisfactory position. There is mild interstitial disease bilater ally consistent with pulmonary edema, improved. The lungs are otherwise clear. The heart size is normal. There is no pleural effusion or pneumothorax. Barium is present in the colon from a prior swallowing study. IMPRESSION: 1. Left arm PICC line. 2. Mild pulmonary edema, improved. 3. Barium in the colon from a prior swallowing study. RPTAT: QQ .Omar Moreira MD, MD Date Time Electronically viewed and signed by .Omar Moreira MD, on 06/08/2016 21:24 .R/
[2016-06-08] MEDS ORDERED: SOD CHLORIDE 0.9% 1,000 ML IV ONE (21:30)
[2016-06-09] MEDS: ACCUCHECK XX SCH ×5 (00:33→23:57)
[2016-06-09] MEDS: INSULIN ASPART [NOVOLOG] 3 ML PEN SC SCH ×5 (06:00→23:57)
[2016-06-09] MEDS: PANTOPRAZOLE 40 MG INJ IV SCH (06:23)
[2016-06-09] MEDS: LEVOTHYROXINE 100 MCG VIAL IV SCH (06:25)
[2016-06-09 06:40] LABS: EOSINOPHILS % 0.1 % (0.0-7.0); HEMATOCRIT 25.4 % (42.0-52.0); HEMOGLOBIN 8.4 g/dl (14.0-18.0); LYMPHOCYTES # 1.3 10^3/ul (0.8-2.9); LYMPHOCYTES % 13.1 % (15.0-51.0); MEAN CORPUSCULAR HEMOGLOBIN 29.5 pg (29.0-33.0); MEAN CORPUSCULAR HGB CONC 33.2 g/dl (32.0-37.0); MEAN CORPUSCULAR VOLUME 88.9 fl (82.0-101.0); MEAN PLATELET VOLUME 8.6 fl (7.4-10.4); MONOCYTE # 1.1 10^3/ul (0.3-0.9); MONOCYTES % 11.1 % (0.0-11.0); NEUTROPHIL # 7.4 10^3/ul (1.6-7.5); NEUTROPHILS % 75.7 % (39.0-77.0); PLATELET COUNT 164 10^3/UL (140-440); RED BLOOD COUNT 2.85 10^6/ul (4.70-6.10); RED CELL DISTRIBUTION WIDTH 16.5 % (11.5-14.5); UNCORRECTED WBC 9.8 10^3/ul (4.8-10.8); WHITE BLOOD COUNT 9.8 10^3/ul (4.8-10.8)
[2016-06-09 06:46] LABS: POTASSIUM 3.9 mmol/L (3.5-5.1)
[2016-06-09 06:48] LABS: CREATININE 0.49 mg/dl (0.61-1.24)
[2016-06-09 06:49] LABS: CALCIUM 8.3 mg/dl (8.4-10.2)
[2016-06-09 06:50] LABS: CONDITION 1; LH ANALYZER COMMENTS 1
[2016-06-09 07:06] LABS: ADD UMIC YES; URINE BILIRUBIN (Dip) 1+ (NEGATIVE); URINE BLOOD (Dip) 2+ (NEGATIVE); URINE COLOR AMBER (YELLOW); URINE KETONES (Dip) NEGATIVE (NEGATIVE); URINE LEUKOCYTE ESTERASE (Dip) NEGATIVE (NEGATIVE); URINE NITRITE (Dip) NEGATIVE (NEGATIVE); URINE TOTAL PROTEIN (Dip) 1+ (NEGATIVE); URINE UROBILINOGEN (Dip) 4.0 E.U./dL (0.1-1.0)
[2016-06-09 07:20] LABS: BACTERIA,URINE FEW
[2016-06-09 08:33] VITALS: BP 91/50; RESP 17
[2016-06-09 09:00] VITALS: BP 95/52
[2016-06-09 09:59] LABS: ICTOTEST NEGATIVE (NEGATIVE)
[2016-06-09] MEDS: IPRATROPIUM (NEB) 0.5 MG/2.5 ML AMP HHN SCH ×3 (10:15→23:41)
[2016-06-09] MEDS: ALBUTEROL 0.5% (NEB) 2.5 MG/0.5 ML AMP HHN SCH ×3 (10:15→23:41)
[2016-06-09] MEDS: ACETYLCYSTEINE 20% 4 ML VIAL NEB SCH ×3 (10:20→23:41)
[2016-06-09] MEDS ORDERED: VANCOMYCIN IV PER PHARMACY XX SCH (10:30)
[2016-06-09] MEDS ORDERED: VANCOMYCIN 1 GM in NS 250 ML IVPB ONE (10:30)
[2016-06-09] MEDS: SOD CHLORIDE 0.9% 1,000 ML IV SCH (11:06)
--- NOTE | 2016-06-09 12:33 | PN ---
Date/Time of Note Date/Time of Note DATE: 06/09/16 TIME: 12:28 Assessment/Plan VTE Prophylaxis VTE Prophylaxis Intervention: contraindicated VTE Contraindication Reason: blood coagulation disorder, bleeding Lines/Catheters IV Catheter Type (from Nrsg): PICC Line Central line still needed: Yes Urinary Cath still in place: Yes Reason Cath still needed: urinary retention Assessment/Plan Chief Complaint/Hosp Course A/P: 70 M with UGI bleeding on admission: 1. Ac Resp failure; airway protection/encephalopathy; stable/ extubated a few days ago. - Cont ST care, +/- diet/ tpn holiday? nobody to sign for peg...Niece?? - pt a bit more alert today, still lethargic overall - when asked about PEG placement with metal riveter 3 days ago, pt appears receptive to this. - continue TPN for now, have reconsulted GI team about possible PEG placement - awaiting there new input on this 2. Upper GiB/ E varices; sp EGD x2/ ligation; DCed octreotide/ppi drip. - monitor, f/u GI rec's - on TPN as well - ST re-eval in 1-2 days 3. Hepatic encephalopathy; lactulose/librium; ammonia improved - lactulose 4. Ac/ chr anemia 2/2 Blood loss - H/H stable - monitor 5. Etoh liver dz (ascites/coagulopathy/varices). Try lasix/clonidine; +/- tap 6. Homelessness/ Ftt 7. Resolving aspiration pneumonia & uti 8. Hypernatremia ~ hypovolemic; resolved 9. Ftt; DC to SNF if accepted. 10. Hypothyroidism- new - monitor 11. Past etoh; cont supportive care. 12. neck stiffness - improved - continue morphine IV prn, and flexeril BID, monitor 13. sepsis - pt with fevers, tachy, and some hypotension, all within last 12-24 hrs. UA neg, CXR neg, but + blood cx results. - for + blood cx results, start vanco IV, f/u final cx results. - if worsens, consider ID consult. -Dispo: Sp Bioethics consulted earlier this admission as prognosis is poor. Niece is out of state. Problems: Subjective 24 Hr Interval Summary Free Text/Dictation Pt had fever yesterday, blood cx + prelim for gram + cocci now. Exam/Review of Systems Vital Signs Vitals Vital Signs Date Time Temp Pulse Resp B/P Pulse Ox O2 Delivery O2 Flow Rate FiO2 06/09/16 10:20 2.0 06/09/16 10:20 103 20 95 Nasal Cannula 06/09/16 08:33 97.9 91/50 06/07/16 16:40 28 Intake and Output 06/08/16 06/08/16 06/09/16 15:00 23:00 07:00 Intake Total 400 ml 80 ml 480 ml Output Total 350 ml Balance 400 ml -270 ml 480 ml Exam Constitutional: alert, still lethargic but answering questions, hoarse Head: other (some bilat temporal wasting), PERRL, EOMI Respiratory: clear to auscultation Cardiovascular: regular rate and rhythm Gastrointestinal: non-tender (nd; no r r g), soft Extremities: other (no edema) Results Result Diagram: 06/09/16 0533 06/09/16 0533 Results 24 hrs Laboratory Tests Test 06/08/16 16:50 06/08/16 17:30 06/08/16 19:36 06/09/16 00:08 Urine Bacteria FEW Urine Bilirubin 1+ H Urine Clarity CLEAR Urine Color MARC Urine Epithelial Cells FEW Urine Glucose 0.1% H Urine Hemoglobin 2+ H Urine Ictotest NEGATIVE Urine Ketones NEGATIVE Urine Leukocyte Esterase NEGATIVE Urine Microscopic RBC 5-10 Urine Microscopic WBC NONE SEEN Urine Nitrite NEGATIVE Urine Specific [place] 1.020 Urine Total Protein 1+ H Urine Urobilinogen 4.0 E.U./dL H Urine pH 6.0 Bedside Glucose 207 138 135 Test 06/09/16 05:33 06/09/16 06:29 06/09/16 11:59 Anion Gap 14 Basophils # 0.0 Basophils % 0.0 Blood Morphology Comment Blood Urea Nitrogen 17 Calcium Level 8.3 L Carbon Dioxide Level 26 Chloride Level 104 Creatinine 0.49 L Eosinophils # 0.0 Eosinophils % 0.1 Glucose Level 101 Hematocrit 25.4 L Hemoglobin 8.4 L Lymphocytes # 1.3 Lymphocytes % 13.1 L Mean Corpuscular Hemoglobin 29.5 Mean Corpuscular Hemoglobin Concent 33.2 Mean Corpuscular Volume 88.9 Mean Platelet Volume 8.6 Monocytes # 1.1 H Monocytes % 11.1 H Neutrophils # 7.4 Neutrophils % 75.7 Nucleated Red Blood Cells # 0.0 Nucleated Red Blood Cells % 0.0 Platelet Count 164 # Potassium Level 3.9 Red Blood Count 2.85 L Red Cell Distribution Width 16.5 H Sodium Level 140 White Blood Count 9.8 # Bedside Glucose 129 149 Medications Medications Current Medications Ondansetron HCl (Zofran Inj) 4 mg Q6H PRN IV NAUSEA AND/OR VOMITING; Start 05/07/16 at 19:30 Morphine Sulfate (morphine) 2 mg Q4H PRN IV SEVERE PAIN LEVEL 7-10 Last administered on 05/23/16at 04:03; Admin Dose 2 MG; Start 05/07/16 at 19:30 Docusate Sodium (Colace) 100 mg Q12H PRN PO CONSTIPATION; Start 05/07/16 at 19: 30 IV Flush 10 ml 10 ml PRN PRN IV IV PROTOCOL; Start 05/17/16 at 12:00 Total Parenteral Nutrition (Tpn) 1,000 ml @ 40 mls/hr Q24H IV Last administered on 06/08/16 15:12; Admin Dose 40 MLS/HR; Start 05/24/16 at 15:00 Diagnostic Test (Pha) (Accucheck) 1 ea Q6 XX Last administered on 06/09/16 12: 00; Admin Dose 1 EA; Start 05/28/16 at 12:00 Lorazepam (Ativan) 1 mg Q8 PRN IV AGITATION/ANXIETY; Start 05/28/16 at 22:00 Levothyroxine Sodium (Synthroid Iv) 50 mcg DAILY@06 IV Last administered on 06/09 06:25; Admin Dose 50 MCG; Start 05/29/16 at 06:00 Miscellaneous Information 1 ea NOTE XX ; Start 05/30/16 at 11:30 Pantoprazole (Protonix Iv) 40 mg DAILY@06 IV Last administered on 06/09/16 06: 23; Admin Dose 40 MG; Start 06/01/16 at 06:00 Clonidine HCl (Catapres-Tts 1 Patch) 1 patch Q7D TRANSDERM Last administered on 06/01/16at 13:53; Admin Dose 1 PATCH; Start 06/01/16 at 13:30 Lactulose (Lactulose Enema) 100 ml [place] Last administered on 06/07/16 16:02; Admin Dose 100 ML; Start 06/03/16 at 09:00 Haloperidol (Haldol) 5 mg HS IM Last administered on 06/08/16 20:47; Admin Dose 5 MG; Start 06/02/16 at 21:00 Acetaminophen (Tylenol Supp) 650 mg Q6H PRN [place] MILD PAIN/FEVER Last administered on 06/08/16 17:31; Admin Dose 650 MG; Start 06/08/16 at 16:30 Insulin Aspart (Novolog Insulin Pen) NOVOLOG *MILD* ALGORI... Q6 SC Last administered on 06/09/16 12:02; Admin Dose 1 UNIT; Start 06/08/16 at 18:00 Miscellaneous Information 1 ea NOTE XX ; Start 06/08/16 at 18:30 Glucose (Glutose) 15 gm Q15M PRN PO DECREASED GLUCOSE; Start 06/08/16 at 18:30 Glucose (Glutose) 22.5 gm Q15M PRN PO DECREASED GLUCOSE; Start 06/08/16 at 18:30 Dextrose (D50w Syringe) 25 ml Q15M PRN IV DECREASED GLUCOSE; Start 06/08/16 at 18:30 Dextrose (D50w Syringe) 50 ml Q15M PRN IV DECREASED GLUCOSE; Start 06/08/16 at 18:30 Glucagon (Glucagen) 1 mg Q15M PRN IM DECREASED GLUCOSE; Start 06/08/16 at 18:30 Glucose 15 gm 15 gm Q15M PRN BUCCAL DECREASED GLUCOSE; Start 06/08/16 at 18:30 Sodium Chloride 1,000 ml @ 75 mls/hr [id number] IV Last administered on 06/09/16 11:06; Admin Dose 75 MLS/HR; Start 06/09/16 at 10:30 Vancomycin HCl (Vancocin) 250 ml @ 125 mls/hr Q24H IVPB ; Start 06/10/16 at 11: 00 ADONIS PARTIDA Jun 09, 2016 12:32
[2016-06-09] MEDS: ACETAMINOPHEN 650 MG SUPP PR PRN ×2 (13:22→19:40)
[2016-06-09 13:57] LABS: ADD UMIC YES; URINE BILIRUBIN (Dip) 1+ (NEGATIVE); URINE BLOOD (Dip) 3+ (NEGATIVE); URINE COLOR AMBER (YELLOW); URINE KETONES (Dip) NEGATIVE (NEGATIVE); URINE LEUKOCYTE ESTERASE (Dip) NEGATIVE (NEGATIVE); URINE NITRITE (Dip) NEGATIVE (NEGATIVE); URINE TOTAL PROTEIN (Dip) TRACE (NEGATIVE); URINE UROBILINOGEN (Dip) 4.0 E.U./dL (0.1-1.0)
[2016-06-09 14:06] LABS: BACTERIA,URINE FEW; ICTOTEST NEGATIVE (NEGATIVE); MUCUS,URINE RARE
[2016-06-09] MEDS: TPN 1,000 ML IV SCH (15:33)
[2016-06-09 19:32] VITALS: BP 107/59; RESP 20
[2016-06-09] MEDS: HALOPERIDOL 5 MG INJ IM SCH (20:49)
[2016-06-09 20:51] VITALS: PULSE 100
[2016-06-09 22:51] VITALS: BP 99/53; PULSE 85
[2016-06-10] MEDS: SOD CHLORIDE 0.9% 1,000 ML IV SCH ×2 (00:14→15:32)
[2016-06-10 01:28] VITALS: BP 95/55; PULSE 85
[2016-06-10] MEDS: INSULIN ASPART [NOVOLOG] 3 ML PEN SC SCH ×3 (06:00→17:29)
[2016-06-10 06:02] LABS: BASOPHILS % 0.1 % (0.0-2.0); EOSINOPHILS % 0.1 % (0.0-7.0); HEMATOCRIT 23.1 % (42.0-52.0); HEMOGLOBIN 7.6 g/dl (14.0-18.0); LYMPHOCYTES # 0.5 10^3/ul (0.8-2.9); LYMPHOCYTES % 6.8 % (15.0-51.0); MEAN CORPUSCULAR HEMOGLOBIN 28.9 pg (29.0-33.0); MEAN CORPUSCULAR VOLUME 87.6 fl (82.0-101.0); MEAN PLATELET VOLUME 8.7 fl (7.4-10.4); MONOCYTE # 0.1 10^3/ul (0.3-0.9); MONOCYTES % 1.3 % (0.0-11.0); NEUTROPHIL # 6.2 10^3/ul (1.6-7.5); NEUTROPHILS % 91.7 % (39.0-77.0); PLATELET COUNT 162 10^3/UL (140-440); RED BLOOD COUNT 2.64 10^6/ul (4.70-6.10); RED CELL DISTRIBUTION WIDTH 17.5 % (11.5-14.5); UNCORRECTED WBC 6.8 10^3/ul (4.8-10.8); WHITE BLOOD COUNT 6.8 10^3/ul (4.8-10.8)
[2016-06-10] MEDS: ACCUCHECK XX SCH ×3 (06:02→17:29)
[2016-06-10 06:03] LABS: CONDITION 1; LH ANALYZER COMMENTS 1
[2016-06-10] MEDS: PANTOPRAZOLE 40 MG INJ IV SCH (06:05)
[2016-06-10] MEDS: LEVOTHYROXINE 100 MCG VIAL IV SCH (06:05)
[2016-06-10 06:07] LABS: ALBUMIN 2.3 g/dl (3.3-4.9)
[2016-06-10 06:10] LABS: BILIRUBIN,INDIRECT 0.3 mg/dl (0-1.1); BILIRUBIN,TOTAL 0.3 mg/dl (0.2-1.3); CREATININE 0.46 mg/dl (0.61-1.24)
[2016-06-10] MEDS: ACETAMINOPHEN 650 MG SUPP PR PRN (06:10)
[2016-06-10 06:11] LABS: ALBUMIN/GLOBULIN RATIO 0.48; CALCIUM 8.3 mg/dl (8.4-10.2)
[2016-06-10 06:24] LABS: MAGNESIUM 1.9 mg/dl (1.7-2.5); PHOSPHORUS 3.1 mg/dl (2.5-4.9)
[2016-06-10 07:47] LABS: ANISOCYTOSIS 1+
[2016-06-10 08:00] VITALS: BP 121/65; RESP 16
[2016-06-10] MEDS: ALBUTEROL 0.5% (NEB) 2.5 MG/0.5 ML AMP HHN SCH (08:00)
[2016-06-10] MEDS: ACETYLCYSTEINE 20% 4 ML VIAL NEB SCH (08:00)
[2016-06-10] MEDS: IPRATROPIUM (NEB) 0.5 MG/2.5 ML AMP HHN SCH (08:00)
[2016-06-10] MEDS ORDERED: VANCOMYCIN 1 GM in NS 250 ML IVPB SCH (11:00)
[2016-06-10] MEDS: IPRATROPIUM (HFA) 12.9 GM INHALER INH SCH ×2 (11:24→23:00)
[2016-06-10] MEDS: LACTULOSE ENEMA 1,000 ML BTL PR SCH (11:35)
[2016-06-10] MEDS: ALBUTEROL 0.083% (NEB) 2.5 MG/3 ML AMP HHN PRN (16:17)
--- NOTE | 2016-06-10 18:01 | PN ---
Date/Time of Note Date/Time of Note DATE: 06/10/16 TIME: 17:46 Assessment/Plan VTE Prophylaxis VTE Prophylaxis Intervention: SCD's VTE Contraindication Reason: bleeding Lines/Catheters IV Catheter Type (from Nrsg): PICC Line Central line still needed: No Urinary Cath still in place: Yes Reason Cath still needed: other (indicate) Assessment/Plan Assessment/Plan 70 M homeless alcoholic who had originally come in with GI bleed 2/2 varices and has had a prolonged and complicated hospitalization now managed as follows: 1. Sepsis ID concerned for Line sepsis / PICC line to be removed today /blood and urine cultures positive / ID managing abx, appreciate input 2. Gm +cocci bacteremia: See above 3. Enterococcus UTI: abx per ID 4. GI bleed : s/p EGD x 2 on this admission with findings of varices s/p banding on both studies Hgb dropping again / Patient being transfused / GI following / appreciate input 5. Encephalopathy + Dysphagia Patient's mental status has improved considerably since my last eval Will reorder ST eval for repeat swallow eval will hold TPN since we will be removing PICC for line holiday / give D5 1/2 NS / GI to review for possible PEG 6. S/p Resp failure + ventilator dependence now extubated with lots of residual rhonchi / ?stridor Continue scheduled bronchodilator therapy / add inhaled steroids / continue PRN O2 7. Alcoholism with Alcoholic liver cirrhosis causing #5 + coagulopathy Continue lactulose / monitor coag profile / intervene PRN 8. Acute on chronic anemia 2/2 Blood loss +#7 +FTT see above 9. Homelessness: CM working opn SNF placement 10. Newly diagnosed Hypothyroidism- started on IV thyroxine low dose Dispo Continue transfusion d/c PICC/ ST re-eval / GI for possible PEG tube if patient fails again / d/c steele as well Monitor coags Supportive care Further evaluation and treatment will be based on clinical course Full discussion with care team done. All questions Answered Please also see orders. Total time spent on this evaluation >35mins Subjective 24 Hr Interval Summary Free Text/Dictation Patient seen and examined. was able to speak with the patient withe the clinical social worker present and he was very cognizant. We discussed the need for a PEG tube Exam/Review of Systems Vital Signs Vitals Vital Signs Date Time Temp Pulse Resp B/P Pulse Ox O2 Delivery O2 Flow Rate FiO2 06/10/16 16:18 80 20 98 Nasal Cannula 2.0 06/10/16 11:33 97.8 06/10/16 08:00 121/65 06/07/16 16:40 28 Intake and Output 06/09/16 06/09/16 06/10/16 15:00 23:00 07:00 Intake Total 400 ml 630 ml 525 ml Output Total 650 ml 300 ml 300 ml Balance -250 ml 330 ml 225 ml Exam Constitutional: alert, frail, oriented (X4), No distress Psych: nl mood/affect Head: normocephalic Eyes: PERRL, icteric (mildly) ENMT: other (oral mucosa coated with whitish discharge) Neck: non-tender, supple Respiratory: diminished breath sounds, wheezing (diffuse and loud) Cardiovascular: regular rate and rhythm, No murmurs/extra sounds Gastrointestinal: bowel sounds, non-tender, soft Extremities: No edema Neurological: lethargic, nl mental status, nl speech (very soft), No focal weakness Results Result Diagram: 06/10/16 0535 06/10/16 0535 Results 24 hrs Laboratory Tests Test 06/09/16 23:54 06/10/16 05:35 06/10/16 06:01 06/10/16 11:34 Bedside Glucose 135 138 166 Alanine Aminotransferase (ALT/SGPT) 47 Albumin 2.3 L Albumin/Globulin Ratio 0.48 Alkaline Phosphatase 198 H Ammonia 12 Anion Gap 14 Anisocytosis 1+ Aspartate Amino Transf (AST/SGOT) 73 H Basophils # 0.0 Basophils % 0.1 Blood Morphology Comment Blood Urea Nitrogen 21 H Calcium Level 8.3 L Carbon Dioxide Level 24 Chloride Level 107 Creatinine 0.46 L Direct Bilirubin 0.00 Eosinophils # 0.0 Eosinophils % 0.1 Globulin 4.70 H Glucose Level 99 Hematocrit 23.1 L Hemoglobin 7.6 L Indirect Bilirubin 0.3 Lymphocytes # 0.5 L Lymphocytes % 6.8 L Magnesium Level 1.9 Mean Corpuscular Hemoglobin 28.9 L Mean Corpuscular Hemoglobin Concent 33.0 Mean Corpuscular Volume 87.6 Mean Platelet Volume 8.7 Monocytes # 0.1 L Monocytes % 1.3 Neutrophils # 6.2 Neutrophils % 91.7 H Nucleated Red Blood Cells # 0.0 Nucleated Red Blood Cells % 0.0 Phosphorus Level 3.1 Platelet Count 162 Potassium Level 4.0 Red Blood Count 2.64 L Red Cell Distribution Width 17.5 H Sodium Level 141 Total Bilirubin 0.3 Total Protein 7.0 White Blood Count 6.8 # Test 06/10/16 17:29 Bedside Glucose 96 Medications Medications Current Medications Ondansetron HCl (Zofran Inj) 4 mg Q6H PRN IV NAUSEA AND/OR VOMITING; Start 05/07/16 at 19:30 Morphine Sulfate (morphine) 2 mg Q4H PRN IV SEVERE PAIN LEVEL 7-10 Last administered on 05/23/16at 04:03; Admin Dose 2 MG; Start 05/07/16 at 19:30 Docusate Sodium (Colace) 100 mg Q12H PRN PO CONSTIPATION; Start 05/07/16 at 19: 30 IV Flush 10 ml 10 ml PRN PRN IV IV PROTOCOL; Start 05/17/16 at 12:00 Total Parenteral Nutrition (Tpn) 1,000 ml @ 40 mls/hr Q24H IV Last administered on 06/09/16 15:33; Admin Dose 40 MLS/HR; Start 05/24/16 at 15:00 Diagnostic Test (Pha) (Accucheck) 1 ea Q6 XX Last administered on 06/10/16 17: 29; Admin Dose 1 EA; Start 05/28/16 at 12:00 Lorazepam (Ativan) 1 mg Q8 PRN IV AGITATION/ANXIETY; Start 05/28/16 at 22:00 Levothyroxine Sodium (Synthroid Iv) 50 mcg DAILY@06 IV Last administered on 06/10 06:05; Admin Dose 50 MCG; Start 05/29/16 at 06:00 Miscellaneous Information 1 ea NOTE XX ; Start 05/30/16 at 11:30 Pantoprazole (Protonix Iv) 40 mg DAILY@06 IV Last administered on 06/10/16 06: 05; Admin Dose 40 MG; Start 06/01/16 at 06:00 Clonidine HCl (Catapres-Tts 1 Patch) 1 patch Q7D TRANSDERM Last administered on 06/01/16at 13:53; Admin Dose 1 PATCH; Start 06/01/16 at 13:30 Lactulose (Lactulose Enema) 100 ml [place]ED[place]RI [place] Last administered on 06/10/16 11:35; Admin Dose 100 ML; Start 06/03/16 at 09:00 Haloperidol (Haldol) 5 mg HS IM Last administered on 06/09/16 20:49; Admin Dose 5 MG; Start 06/02/16 at 21:00 Acetaminophen (Tylenol Supp) 650 mg Q6H PRN [place] MILD PAIN/FEVER Last administered on 06/10/16 06:10; Admin Dose 650 MG; Start 06/08/16 at 16:30 Insulin Aspart (Novolog Insulin Pen) NOVOLOG *MILD* ALGORI... Q6 SC Last administered on 06/10/16 11:40; Admin Dose 1 UNIT; Start 06/08/16 at 18:00 Miscellaneous Information 1 ea NOTE XX ; Start 06/08/16 at 18:30 Glucose (Glutose) 15 gm Q15M PRN PO DECREASED GLUCOSE; Start 06/08/16 at 18:30 Glucose (Glutose) 22.5 gm Q15M PRN PO DECREASED GLUCOSE; Start 06/08/16 at 18:30 Dextrose (D50w Syringe) 25 ml Q15M PRN IV DECREASED GLUCOSE; Start 06/08/16 at 18:30 Dextrose (D50w Syringe) 50 ml Q15M PRN IV DECREASED GLUCOSE; Start 06/08/16 at 18:30 Glucagon (Glucagen) 1 mg Q15M PRN IM DECREASED GLUCOSE; Start 06/08/16 at 18:30 Glucose 15 gm 15 gm Q15M PRN BUCCAL DECREASED GLUCOSE; Start 06/08/16 at 18:30 Sodium Chloride 1,000 ml @ 75 mls/hr [id number] IV Last administered on 06/10/16 15:32; Admin Dose 75 MLS/HR; Start 06/09/16 at 10:30 Vancomycin HCl/ Sodium Chloride (Vancocin/NS) 150 ml @ 75 mls/hr Q12H IVPB ; Start 06/10/16 at 23:00 Procedures Procedures PROCEDURE: XR Chest. CLINICAL INDICATION: Shortness of breath. TECHNIQUE: Single frontal view. COMPARISON: 05 31 16. FINDINGS: The left arm PICC line remains in satisfactory position. There is mild interstitial disease bilaterally consistent with pulmonary edema, improved. The lungs are otherwise clear. The heart size is normal. There is no pleural effusion or pneumothorax. Barium is present in the colon from a prior swallowing study. IMPRESSION: 1. Left arm PICC line. 2. Mild pulmonary edema, improved. 3. Barium in the colon from a prior swallowing study. RPTAT: QQ .Omar Moreira MD, Date Time Electronically viewed and signed by .Omar Moreira MD, on 06/08/2016 21:24 06/05/15 ST Note: MBSS completed. Patient aspirated thin liquid by spoon and had deep penetration to the level of vocal folds with nectar thick liquids (cup, straw) and puree. Pt presents with delayed swallow, decreased bolus control, poor tongue base retraction, premature spillage to level of pyriform sinuses, and moderate amounts of residue post swallow. Pt was coughing between frames of MBSS. ST attempted compensatory strategies (double swallow, chin neutral, chin tuck) but this did not aid in improving swallow. At this time, pt's swallow is not considered functional for full PO diet; ST would recommend senior care enteral feeding with PO for oral gratification only. Discussed recommendations with STEPHANIE Mitchell. KASH OLVERA Jun 10, 2016 17:57
[2016-06-10] MEDS: DEXTROSE 5%-0.45% NACL 1,000 ML IV SCH (18:19)
--- NOTE | 2016-06-10 18:34 | CONS ---
DATE OF ADMISSION: 05/07/2016 DATE OF CONSULTATION: 06/10/2016 TYPE OF CONSULTATION: Infectious Disease. REASON FOR CONSULTATION: Antibiotic management. HISTORY OF PRESENT ILLNESS: Jose Pinto is a 70-year-old male who was admitted on 06/07/2016 with an upper GI bleed. His past problems include: 1. Known alcohol abuse and homelessness. He was hospitalized here previously alcohol abuse with pr evious hospitalization for alcohol withdrawal. On admission, his white count was 7.5, hemoglobin 7. 9, platelets 244. His CT scan of the pelvis and abdomen showed hepatic steatosis, hiatal hernia, as cites, cholelithiasis, bilateral inguinal hernia, spinal findings of DISH. Chest x-ray: No acute di sease. HOSPITAL COURSE: The patient has been hospitalized for prolonged period of time. He was seen by Dr Timothy Ochoa who noted hematemesis, anemia, history of alcohol abuse. He noted that he was alert, frail and oriented. He had a GI procedure. He had an EGD which showed endoscopic variceal varices which were ligated with 4/4 esophageal varices with stigmata of recent bleeding "white plug" post-endosc opic variceal ligation x4. Subsequent patient still had a very stormy course. He was seen and had an EGD with and without brushings. He was seen by Dr. Babin. Unfortunate gentleman alcohol abuse , recently GI bleed, more somnolent. He needed an emergency intubation and mechanical ventilation f or airway protection, pending colonoscopy on 05/17/2016. He had a GI procedure again had ligation d one on 05/17/2016 for bleeding. Multiple esophageal ulcers. No evidence of bleeding. Residual eso phageal varices. One of the varices with stigmata of recent bleeding. The patient was seen by Dr. Em Barnes who noted alcoholic cirrhosis, GI bleed, hypotensive secondary to drop in his hemoglobi n. He then developed leukocytosis and left shift. Urine culture growing showing gram-negative rods . On 05/22/2016 white count was 14.4. The patient was placed on ceftriaxone. Currently, he was se en on 06/05/[address] Regan. A PICC line was placed. The patient had urinary retention, respirato ry failure, extubated a few days ago. He became more alert. A G-tube was considered. TPN was mg nued. Upper GI bleed discontinued octreotide, hepatic encephalopathy. Lactulose, Librium, ammonia im proved, alcoholic liver disease, bioethics consult as prognosis is poor. Today, he has a PICC line in place, respiratory failure, extubated a few days ago. PAST MEDICAL HISTORY: Operations as outlined. FAMILY HISTORY: Noncontributory. SOCIAL HISTORY: He does not smoke, drink or abuse drugs. He is homeless. ALLERGIES: NONE TO PENICILLIN, SULFA OR FOODS. MEDICATIONS: Per chart. REVIEW OF SYSTEMS: As per HPI. PHYSICAL EXAMINATION: GENERAL: The patient is a poorly nourished, alert but lethargic male who is in no acute distress. VITAL SIGNS: Stable. He is afebrile. SKIN: Without generalized rash. HEENT: Bilateral temporal wasting. Mouth without pharyngeal exudate or injection. NECK: Supple. LYMPH NODES: None palpable. CHEST: Decreased breath sounds at the bases. HEART: Without murmur or gallop. ABDOMEN: Soft, nontender, without organosplenomegaly or masses. EXTREMITIES: Without cyanosis, clubbing, or edema. RECTAL AND GENITAL: Deferred. NEUROLOGIC: No focal neurological abnormality. He has a PICC line in place. IMPRESSION AND PLAN: The patient had fever, tachycardia, some hypotension all within the last 24 ho urs. Urinalysis was negative. Chest x-ray negative. Positive blood culture results. The patient was started on vancomycin. Infectious disease consultation was obtained. The patient has gram-posi tive cocci in clusters. He needs his PICC line removed. He has enterococcus in the urine. His sput um is growing out Staph aureus, Klebsiella oxytoca. Normal respiratory yocasta sputum shows. Chest x- ray shows mild pulmonary edema, barium in the colon from prior swallowing study. Urine is growing e nterococcus. Patient should be on vancomycin, which he is. In addition, his sputum is growing Stap hylococcus aureus, Klebsiella oxytoca but his lungs are clear. Staphylococcus aureus is sensitive to most everything. Cefotaxime is good for the Klebsiella oxytoca. A Styles catheter was discontinued. The PICC line was discontinued. We discontinued the PICC line. I think that the sputum is coloni zation. We will continue him on vancomycin alone. Discontinue the PICC line and repeat blood cultu res. I will dictate my findings to the hospitalist and the various consultants. Dictated By: JAYCE LIRA MD, JD/STEVE Conf#: [id number] DID#: [id number]
[2016-06-10 19:23] VITALS: BP 105/64; RESP 16
[2016-06-10] MEDS: HALOPERIDOL 5 MG INJ IM SCH (20:30)
[2016-06-10] MEDS: SALMETEROL/FLUTICASONE 250/50 INHA INH SCH (20:30)
[2016-06-10] MEDS: VANCOMYCIN 750 MG in SOD CHLORIDE 0.9% 150 ML IVPB SCH (22:50)
[2016-06-10] MEDS: ALBUTEROL HFA 8 GM INHALER INH SCH ×2 (23:11→23:24)
[2016-06-11] MEDS: ACCUCHECK XX SCH ×5 (00:55→23:29)
[2016-06-11] MEDS: INSULIN ASPART [NOVOLOG] 3 ML PEN SC SCH ×5 (00:58→23:27)
[2016-06-11] MEDS: IPRATROPIUM (HFA) 12.9 GM INHALER INH SCH ×6 (01:00→20:54)
[2016-06-11] MEDS: ALBUTEROL HFA 8 GM INHALER INH SCH ×6 (01:00→20:48)
[2016-06-11] MEDS: SOD CHLORIDE 0.9% 1,000 ML IV SCH (02:30)
[2016-06-11] MEDS: PANTOPRAZOLE 40 MG INJ IV SCH (05:42)
[2016-06-11] MEDS: LEVOTHYROXINE 100 MCG VIAL IV SCH (05:43)
[2016-06-11 07:30] VITALS: BP 127/75; RESP 20
[2016-06-11] MEDS: DEXTROSE 5%-0.45% NACL 1,000 ML IV SCH ×2 (09:53→20:50)
[2016-06-11] MEDS: SALMETEROL/FLUTICASONE 250/50 INHA INH SCH ×2 (09:53→20:47)
[2016-06-11] MEDS: VANCOMYCIN 750 MG in SOD CHLORIDE 0.9% 150 ML IVPB SCH ×2 (12:05→23:26)
--- NOTE | 2016-06-11 13:12 | PN ---
Date/Time of Note Date/Time of Note DATE: 06/11/16 TIME: 13:01 Assessment/Plan VTE Prophylaxis VTE Prophylaxis Intervention: SCD's VTE Contraindication Reason: bleeding Lines/Catheters IV Catheter Type (from Nrs): Peripheral IV Urinary Cath still in place: No Assessment/Plan Assessment/Plan 70 M homeless alcoholic who had originally come in with GI bleed 2/2 varices and has had a prolonged and complicated hospitalization now managed as follows: 1. Sepsis ID concerned for Line sepsis / PICC line to be removed today /blood and urine cultures positive / ID managing abx, appreciate input 2. Gm +cocci bacteremia: See above 3. Enterococcus UTI: abx per ID 4. GI bleed : s/p EGD x 2 on this admission with findings of varices s/p banding on both studies f/u post transfusion hgb/ GI following / appreciate input 5. Encephalopathy + Dysphagia Patient's mental status has improved considerably since my last eval ST notes reviewed / patient failed swallow eval again / will discuss possible PEG with GI / patient has given consent will hold TPN since we will be removing PICC for line holiday / give D5 1/2 NS 6. S/p Resp failure + ventilator dependence now extubated with lots of residual rhonchi / ?stridor Continue scheduled bronchodilator therapy / add inhaled steroids / continue PRN O2 7. Alcoholism with Alcoholic liver cirrhosis causing #5 + coagulopathy Continue lactulose / monitor coag profile / intervene PRN 8. Acute on chronic anemia 2/2 Blood loss +#7 +FTT see above 9. Homelessness: CM working on SNF placement 10. Newly diagnosed Hypothyroidism- started on IV thyroxine low dose Dispo Spoke with patient in detail with director of social work present and translating to andorran, patient is alert and oriented x 4 and gives verbal consent for PEG tube. Patient however too debilitated to sign form. Monitor coags / f/u post transfusion hgb. Supportive care Further evaluation and treatment will be based on clinical course Full discussion with care team done. All questions Answered Please also see orders. Subjective 24 Hr Interval Summary Free Text/Dictation Patient seen and examined. Nursing reports no acute overnight events. Exam/Review of Systems Vital Signs Vitals Vital Signs Date Time Temp Pulse Resp B/P Pulse Ox O2 Delivery O2 Flow Rate FiO2 06/11/16 10:28 Nasal Cannula 06/11/16 07:30 96.9 70 20 127/75 97 06/10/16 16:18 2.0 06/07/16 16:40 28 Intake and Output 06/10/16 06/10/16 06/11/16 15:00 23:00 07:00 Intake Total 250 ml 1555 ml 470 ml Output Total 300 ml 600 ml Balance 250 ml 1255 ml -130 ml Exam Constitutional: alert, frail, oriented (X4), No distress Psych: nl mood/affect Head: normocephalic Eyes: PERRL, icteric (mildly) ENMT: other (oral mucosa coated with whitish discharge) Neck: non-tender, supple Respiratory: diminished breath sounds, wheezing (diffuse and loud) Cardiovascular: regular rate and rhythm, No murmurs/extra sounds Gastrointestinal: bowel sounds, non-tender, soft Extremities: No edema Neurological: lethargic, nl mental status, nl speech (very soft), No focal weakness Results Result Diagram: 06/10/16 0535 06/10/1635 Results 24 hrs Laboratory Tests Test 06/10/16 17:29 06/11/16 00:57 06/11/16 05:40 06/11/16 12:06 Bedside Glucose 96 79 95 100 Medications Medications Current Medications Ondansetron HCl (Zofran Inj) 4 mg Q6H PRN IV NAUSEA AND/OR VOMITING; Start 05/07/16 at 19:30 Morphine Sulfate (morphine) 2 mg Q4H PRN IV SEVERE PAIN LEVEL 7-10 Last administered on 05/23/16at 04:03; Admin Dose 2 MG; Start 05/07/16 at 19:30 Docusate Sodium (Colace) 100 mg Q12H PRN PO CONSTIPATION; Start 05/07/16 at 19: 30 IV Flush (NS 10 ml) 10 ml PRN PRN IV IV PROTOCOL; Start 05/17/16 at 12:00 Diagnostic Test (Pha) (Accucheck) 1 ea Q6 XX Last administered on 06/11/16 12: 06; Admin Dose 1 EA; Start 05/28/16 at 12:00 Lorazepam (Ativan) 1 mg Q8 PRN IV AGITATION/ANXIETY; Start 05/28/16 at 22:00 Levothyroxine Sodium (Synthroid Iv) 50 mcg DAILY@06 IV Last administered on 05:43; Admin Dose 50 MCG; Start 05/29/16 at 06:00 Miscellaneous Information 1 ea NOTE XX ; Start 05/30/16 at 11:30 Pantoprazole (Protonix Iv) 40 mg DAILY@06 IV Last administered on 06/11/16 05: 42; Admin Dose 40 MG; Start 06/01/16 at 06:00 Clonidine HCl (Catapres-Tts 1 Patch) 1 patch Q7D TRANSDERM Last administered on 06/01/16at 13:53; Admin Dose 1 PATCH; Start 06/01/16 at 13:30 Lactulose (Lactulose Enema) 100 ml [place]RI [place] Last administered on 06/10/16 11:35; Admin Dose 100 ML; Start 06/03/16 at 09:00 Haloperidol (Haldol) 5 mg HS IM Last administered on 06/10/16 20:30; Admin Dose 5 MG; Start 06/02/16 at 21:00 Acetaminophen (Tylenol Supp) 650 mg Q6H PRN [place] MILD PAIN/FEVER Last administered on 06/10/16 06:10; Admin Dose 650 MG; Start 06/08/16 at 16:30 Insulin Aspart (Novolog Insulin Pen) NOVOLOG *MILD* ALGORI... Q6 SC Last administered on 06/10/16 11:40; Admin Dose 1 UNIT; Start 06/08/16 at 18:00 Miscellaneous Information 1 ea NOTE XX ; Start 06/08/16 at 18:30 Glucose (Glutose) 15 gm Q15M PRN PO DECREASED GLUCOSE; Start 06/08/16 at 18:30 Glucose (Glutose) 22.5 gm Q15M PRN PO DECREASED GLUCOSE; Start 06/08/16 at 18:30 Dextrose (D50w Syringe) 25 ml Q15M PRN IV DECREASED GLUCOSE; Start 06/08/16 at 18:30 Dextrose (D50w Syringe) 50 ml Q15M PRN IV DECREASED GLUCOSE; Start 06/08/16 at 18:30 Glucagon (Glucagen) 1 mg Q15M PRN IM DECREASED GLUCOSE; Start 06/08/16 at 18:30 Glucose 15 gm 15 gm Q15M PRN BUCCAL DECREASED GLUCOSE; Start 06/08/16 at 18:30 Sodium Chloride 1,000 ml @ 75 mls/hr [id number] IV Last administered on 06/10/16 15:32; Admin Dose 75 MLS/HR; Start 06/09/16 at 10:30 Vancomycin HCl/ Sodium Chloride (Vancocin/NS) 150 ml @ 75 mls/hr Q12H IVPB Last administered on 06/11/16 12:05; Admin Dose 75 MLS/HR; Start 06/10/16 at 23: 00 Salmeterol Xinafoate/ Fluticasone 1 inh 1 inh BID INH Last administered on 06/11 09:53; Admin Dose 1 INH; Start 06/10/16 at 18:30 Dextrose/Sodium Chloride (D5-1/2ns) 1,000 ml @ 80 mls/hr [id number] IV Last administered on 06/11/16 09:53; Admin Dose 80 MLS/HR; Start 06/10/16 at 18:00 KASH OLVERA Jun 11, 2016 13:12
--- NOTE | 2016-06-11 16:20 | PN ---
DATE: 06/11/2016 SUBJECTIVE: No changes overnight. The patient had been afebrile since yesterday. He is, however, not urinating and has significant distention of his pelvic and lower abdomen . No CBC this morning. MICROBIOLOGY: Blood culture growing coagulase-negative staph species. On 06/08/2016, urine culture growing enterococcus species. DIAGNOSTICS: Chest x-ray on 06/08/2016 showed mild pulmonary edema. ANTIMICROBIALS: The patient is on IV vancomycin. PHYSICAL EXAMINATION: GENERAL: This is a chronically ill-appearing, elderly man who is noncommunicative. He is i n no distress. HEENT: Head atraumatic, normocephalic. Sclerae anicteric. Buccal mucosa dry. NECK: Supple, trachea midline. CHEST: Rise symmetrical. Breath sounds diminished to bases. HEART: S1, S2. ABDOMEN: Distended with mild tenderness over suprapubic area. EXTREMITIES: Without cyanosis. ASSESSMENT: 1. Sepsis with coagulase-negative staphylococcus bacteremia status post peripherally inserted centr al catheter line discontinued. 2. Enterococcal urinary tract infection. 3. Urinary retention. 4. Status post pneumonia, respiratory failure. 5. History of alcohol abuse. 6. Homelessness. 7. Status post gastrointestinal bleed secondary to varices. The patient had esophagogastroduodenos copy with banding. 8. Encephalopathy. PLAN: The patient is hemodynamically stable. No more fevers since yesterday. PICC line discontinued . He is on appropriate antimicrobials. We are going to order a straight catheter or placement of F oley if he continues to have urinary retention. We will repeat blood cultures in a.m. Continue pre sent care, anti-aspiration measures. Dictated By: SELMA FLORES [employer]WORK[employer]ANDER for JAYCE LIRA MD NI/NTS Conf#: [id number] DID#: [id number]
--- NOTE | 2016-06-11 16:33 | CONS ---
Date/Time of Note Date/Time of Note DATE: 06/11/16 TIME: 16:32 Assessment/Plan Assessment/Plan Additional Assessment/Plan Hematemesis/GI bleeding 05/17/2016 EGD Multiple esophageal ulcers, with no evidence of bleeding. Residual esophageal varices, one of the varices with stigmata of recent bleeding. Post- endoscopic variceal ligation x3. No additional potential sources of bleeding identified. 05/09/2016 EGD: Grade IV/IV esophageal varices with stigmata of recent bleeding "white plug."Post-endoscopic variceal ligation x4. Alcoholic cirrhosis Portal hypertension/esophageal varices with bleeding post EVL Ascites Encephalopathy History of EtOH abuse Dysphagia Plan for EGD + PEG tomorrow with Dr. Ochoa Consultation Date/Type/Reason Admit Date/Time May 07, 2016 at 14:39 Type of Consultation: Gastroenterology Referring Provider: KASH OLVERA 24 HR Interval Summary Free Text/Dictation Patient consents to EGD plus PEG Plan for procedure tomorrow with Dr. Ochoa Exam/Review of Systems Vital Signs Vitals Vital Signs Date Time Temp Pulse Resp B/P Pulse Ox O2 Delivery O2 Flow Rate FiO2 06/11/16 10:28 Nasal Cannula 06/11/16 07:30 96.9 70 20 127/75 97 06/10/16 16:18 2.0 06/07/16 16:40 28 Intake and Output 06/10/16 06/10/16 06/11/16 15:00 23:00 07:00 Intake Total 250 ml 1555 ml 470 ml Output Total 300 ml 600 ml Balance 250 ml 1255 ml -130 ml Exam Constitutional: alert, frail, oriented Psych: nl mood/affect Eyes: EOMI, icteric Respiratory: normal air movement Cardiovascular: regular rate and rhythm Gastrointestinal: non-tender, soft Neurological: nl speech, nl strength Results Result Diagram: 06/10/16 0535 06/10/16 0535 Results 24 hrs Laboratory Tests Test 06/10/16 17:29 06/11/16 00:57 06/11/16 05:40 06/11/16 12:06 Bedside Glucose 96 79 95 100 Medications Medications Current Medications Ondansetron HCl (Zofran Inj) 4 mg Q6H PRN IV NAUSEA AND/OR VOMITING; Start 05/07/16 at 19:30 Morphine Sulfate (morphine) 2 mg Q4H PRN IV SEVERE PAIN LEVEL 7-10 Last administered on 05/23/16at 04:03; Admin Dose 2 MG; Start 05/07/16 at 19:30 Docusate Sodium (Colace) 100 mg Q12H PRN PO CONSTIPATION; Start 05/07/16 at 19: 30 IV Flush (NS 10 ml) 10 ml PRN PRN IV IV PROTOCOL; Start 05/17/16 at 12:00 Diagnostic Test (Pha) (Accucheck) 1 ea Q6 XX Last administered on 06/11/16 12: 06; Admin Dose 1 EA; Start 05/28/16 at 12:00 Lorazepam (Ativan) 1 mg Q8 PRN IV AGITATION/ANXIETY; Start 05/28/16 at 22:00 Levothyroxine Sodium (Synthroid Iv) 50 mcg DAILY@06 IV Last administered on 05:43; Admin Dose 50 MCG; Start 05/29/16 at 06:00 Miscellaneous Information 1 ea NOTE XX ; Start 05/30/16 at 11:30 Pantoprazole (Protonix Iv) 40 mg DAILY@06 IV Last administered on 06/11/16 05: 42; Admin Dose 40 MG; Start 06/01/16 at 06:00 Clonidine HCl (Catapres-Tts 1 Patch) 1 patch Q7D TRANSDERM Last administered on 06/01/16at 13:53; Admin Dose 1 PATCH; Start 06/01/16 at 13:30 Lactulose (Lactulose Enema) 100 ml [place] Last administered on 06/10/16 11:35; Admin Dose 100 ML; Start 06/03/16 at 09:00 Haloperidol (Haldol) 5 mg HS IM Last administered on 06/10/16 20:30; Admin Dose 5 MG; Start 06/02/16 at 21:00 Acetaminophen (Tylenol Supp) 650 mg Q6H PRN [place] MILD PAIN/FEVER Last administered on 06/10/16 06:10; Admin Dose 650 MG; Start 06/08/16 at 16:30 Insulin Aspart (Novolog Insulin Pen) NOVOLOG *MILD* ALGORI... Q6 SC Last administered on 06/10/16 11:40; Admin Dose 1 UNIT; Start 06/08/16 at 18:00 Miscellaneous Information 1 ea NOTE XX ; Start 06/08/16 at 18:30 Glucose (Glutose) 15 gm Q15M PRN PO DECREASED GLUCOSE; Start 06/08/16 at 18:30 Glucose (Glutose) 22.5 gm Q15M PRN PO DECREASED GLUCOSE; Start 06/08/16 at 18:30 Dextrose (D50w Syringe) 25 ml Q15M PRN IV DECREASED GLUCOSE; Start 06/08/16 at 18:30 Dextrose (D50w Syringe) 50 ml Q15M PRN IV DECREASED GLUCOSE; Start 06/08/16 at 18:30 Glucagon (Glucagen) 1 mg Q15M PRN IM DECREASED GLUCOSE; Start 06/08/16 at 18:30 Glucose 15 gm 15 gm Q15M PRN BUCCAL DECREASED GLUCOSE; Start 06/08/16 at 18:30 Sodium Chloride 1,000 ml @ 75 mls/hr [id number] IV Last administered on 06/10/16 15:32; Admin Dose 75 MLS/HR; Start 06/09/16 at 10:30 Vancomycin HCl/ Sodium Chloride (Vancocin/NS) 150 ml @ 75 mls/hr Q12H IVPB Last administered on 06/11/16 12:05; Admin Dose 75 MLS/HR; Start 06/10/16 at 23: 00 Salmeterol Xinafoate/ Fluticasone 1 inh 1 inh BID INH Last administered on 06/11 09:53; Admin Dose 1 INH; Start 06/10/16 at 18:30 Dextrose/Sodium Chloride (D5-1/2ns) 1,000 ml @ 80 mls/hr [id number] IV Last administered on 06/11/16 09:53; Admin Dose 80 MLS/HR; Start 06/10/16 at 18:00 Miscellaneous Information (*Rx Drug Level Order Reminder*) 1 ONCE ONCE XX ; Start 06/11/16 at 22:00; Stop 06/11/16 at 22:01 GEOVANNI ALMODOVAR Jun 11, 2016 16:33 Salmeterol Xinafoate/ Fluticasone 1 inh 1 inh BID INH Last administered on 06/11 09:53; Admin Dose 1 INH; Start 06/10/16 at 18:30 Dextrose/Sodium Chloride (D5-1/2ns) 1,000 ml @ 80 mls/hr [id number] IV Last administered on 06/11/16t 09:53; Admin Dose 80 MLS/HR; Start 06/10/16 at 18:00 Miscellaneous Information (*Rx Drug Level Order Reminder*) 1 ONCE ONCE XX ; Start 06/11/16 at 22:00; Stop 06/11/16 at 22:01 GEOVANNI ALMODOVAR Jun 11, 2016 16:33
[2016-06-11 17:25] LABS: ALBUMIN 2.5 g/dl (3.3-4.9); POTASSIUM 3.6 mmol/L (3.5-5.1)
[2016-06-11 17:27] LABS: BILIRUBIN,INDIRECT 0.4 mg/dl (0-1.1); BILIRUBIN,TOTAL 0.4 mg/dl (0.2-1.3); CREATININE 0.47 mg/dl (0.61-1.24)
[2016-06-11 17:28] LABS: ALBUMIN/GLOBULIN RATIO 0.51; CALCIUM 8.6 mg/dl (8.4-10.2); TOTAL PROTEIN 7.4 g/dl (6.1-8.1)
[2016-06-11 17:47] LABS: INR 1.5; PROTIME 18.2 Sec (12.2-14.2); PT RATIO 1.4
[2016-06-11 19:57] VITALS: BP 134/74; RESP 19
[2016-06-11] MEDS: HALOPERIDOL 5 MG INJ IM SCH (20:48)
[2016-06-11] MEDS: ALBUTEROL 0.083% (NEB) 2.5 MG/3 ML AMP HHN PRN (21:33)
[2016-06-12] VITALS (14 sets, daily range): BP systolic 118–147; BP diastolic 68–91; PULSE 74–82; RESP 17–22
[2016-06-12] MEDS: ALBUTEROL HFA 8 GM INHALER INH SCH ×5 (01:00→21:00)
[2016-06-12] MEDS: IPRATROPIUM (HFA) 12.9 GM INHALER INH SCH ×5 (01:59→21:00)
[2016-06-12] MEDS: ACCUCHECK XX SCH ×3 (05:16→16:38)
[2016-06-12] MEDS: INSULIN ASPART [NOVOLOG] 3 ML PEN SC SCH ×3 (05:16→16:38)
[2016-06-12] MEDS: LEVOTHYROXINE 100 MCG VIAL IV SCH (05:17)
[2016-06-12] MEDS: PANTOPRAZOLE 40 MG INJ IV SCH (05:17)
[2016-06-12] MEDS: ALBUTEROL 0.083% (NEB) 2.5 MG/3 ML AMP HHN PRN (05:50)
[2016-06-12] MEDS: DEXTROSE 5%-0.45% NACL 1,000 ML IV SCH ×3 (07:30→22:01)
[2016-06-12] MEDS: SALMETEROL/FLUTICASONE 250/50 INHA INH SCH ×2 (08:33→20:53)
[2016-06-12 09:52] LABS: HEMATOCRIT 31.7 % (42.0-52.0); HEMOGLOBIN 10.4 g/dl (14.0-18.0); MEAN CORPUSCULAR HEMOGLOBIN 28.8 pg (29.0-33.0); MEAN CORPUSCULAR HGB CONC 32.7 g/dl (32.0-37.0); MEAN CORPUSCULAR VOLUME 88.1 fl (82.0-101.0); MEAN PLATELET VOLUME 8.5 fl (7.4-10.4); PLATELET COUNT 201 10^3/UL (140-440); RED CELL DISTRIBUTION WIDTH 16.5 % (11.5-14.5); UNCORRECTED WBC 6.5 10^3/ul (4.8-10.8); WHITE BLOOD COUNT 6.5 10^3/ul (4.8-10.8)
[2016-06-12 09:56] LABS: CONDITION 1; LH ANALYZER COMMENTS 1
[2016-06-12 10:07] LABS: ALBUMIN 2.2 g/dl (3.3-4.9); POTASSIUM 3.7 mmol/L (3.5-5.1)
[2016-06-12 10:09] LABS: CREATININE 0.52 mg/dl (0.61-1.24)
[2016-06-12 10:10] LABS: ALBUMIN/GLOBULIN RATIO 0.48; BILIRUBIN,INDIRECT 0.4 mg/dl (0-1.1); BILIRUBIN,TOTAL 0.4 mg/dl (0.2-1.3); CALCIUM 8.6 mg/dl (8.4-10.2); TOTAL PROTEIN 6.7 g/dl (6.1-8.1)
[2016-06-12] MEDS: VANCOMYCIN 750 MG in SOD CHLORIDE 0.9% 150 ML IVPB SCH (10:24)
[2016-06-12] MEDS: LACTULOSE ENEMA 1,000 ML BTL PR SCH (10:24)
[2016-06-12 11:06] LABS: ANISOCYTOSIS 1+; BASOPHIL # 0.1 10^3/ul (0.0-0.1); HYPOCHROMASIA 1+; LYMPHOCYTES # 0.7 10^3/ul (0.8-2.9); MONOCYTE # 0.5 10^3/ul (0.3-0.9); NEUTROPHIL # 5.2 10^3/ul (1.6-7.5)
--- NOTE | 2016-06-12 13:26 | PN ---
Date/Time of Note Date/Time of Note DATE: 06/12/16 TIME: 13:21 Assessment/Plan VTE Prophylaxis VTE Prophylaxis Intervention: SCD's VTE Contraindication Reason: bleeding Lines/Catheters IV Catheter Type (from Nrsg): Peripheral IV Urinary Cath still in place: No Assessment/Plan Assessment/Plan 70 M homeless alcoholic who had originally come in with GI bleed 2/2 varices and has had a prolonged and complicated hospitalization now managed as follows: 1. Sepsis ID concerned for Line sepsis / Currently on PICC line holiday /blood and urine cultures positive / ID managing abx, appreciate input 2. Gm +cocci bacteremia: See above 3. Enterococcus UTI: abx per ID 4. GI bleed : s/p EGD x 2 on this admission with findings of varices s/p banding on both studies f/u post transfusion hgb/ GI following / appreciate input 5. Encephalopathy + Dysphagia Patient's mental status has improved considerably since my last eval ST notes reviewed / patient failed swallow eval again / will discuss possible PEG with GI / patient has given consent will hold TPN since we will be removing PICC for line holiday / give D5 1/2 NS 6. S/p Resp failure + ventilator dependence now extubated with lots of residual rhonchi / ?stridor Continue scheduled bronchodilator therapy / added inhaled steroids / continue PRN O2 7. Alcoholism with Alcoholic liver cirrhosis causing #5 + coagulopathy Continue lactulose / monitor coag profile / intervene PRN 8. Acute on chronic anemia 2/2 Blood loss +#7 +FTT see above 9. Homelessness: CM working on SNF placement 10. Newly diagnosed Hypothyroidism- started on IV thyroxine low dose Dispo Spoke with patient in detail with high school social science teacher present and translating to latvian, patient is alert and oriented x 4 and gives verbal consent for PEG tube. Patient however too debilitated to sign form. PEG / EGD today Hgb / LFTs / Coags remain stable. Will get CXR Supportive care Further evaluation and treatment will be based on clinical course Full discussion with care team done. All questions Answered Please also see orders. Subjective 24 Hr Interval Summary Free Text/Dictation Patient seen and examined. still lethargic but oriented bladder training in process no more fever For EGD / PEG today Exam/Review of Systems Vital Signs Vitals Vital Signs Date Time Temp Pulse Resp B/P Pulse Ox O2 Delivery O2 Flow Rate FiO2 06/12/16 08:46 Nasal Cannula 06/12/16 07:39 98.4 87 18 131/72 94 06/12/16 05:50 21 06/11/16 21:35 2.0 Intake and Output 06/11/16 06/11/16 06/12/16 15:00 23:00 07:00 Intake Total 320 ml 150 ml 835 ml Balance 320 ml 150 ml 835 ml Exam Constitutional: alert, frail, oriented (X4), No distress Psych: nl mood/affect Head: normocephalic Eyes: PERRL, icteric (mildly) ENMT: other (oral mucosa coated with whitish discharge) Neck: non-tender, supple Respiratory: diminished breath sounds, less wheezing (diffuse and loud) Cardiovascular: regular rate and rhythm, No murmurs/extra sounds Gastrointestinal: bowel sounds, non-tender, soft, mildly distended Extremities: No edema Neurological: lethargic, nl mental status, nl speech (very soft), No focal weakness Results Result Diagram: 06/12/1692406/12/16 0925 Results 24 hrs Laboratory Tests Test 06/11/16 17:05 06/11/16 18:12 06/11/16 21:56 06/11/16 23:21 Alanine Aminotransferase (ALT/SGPT) 49 Albumin 2.5 L Albumin/Globulin Ratio 0.51 Alkaline Phosphatase 236 H Anion Gap 15 Aspartate Amino Transf (AST/SGOT) 80 H Blood Urea Nitrogen 16 Calcium Level 8.6 Carbon Dioxide Level 22 Chloride Level 107 Creatinine 0.47 L Direct Bilirubin 0.00 Globulin 4.90 H Glucose Level 92 INR International Normalized Ratio 1.50 Indirect Bilirubin 0.4 Potassium Level 3.6 Prothrombin Time 18.2 H Prothrombin Time Ratio 1.4 Sodium Level 140 Total Bilirubin 0.4 Total Protein 7.4 Bedside Glucose 98 122 Vancomycin Level Trough 13.0 Test 06/12/16 05:13 06/12/16 09:25 06/12/16 11:38 Bedside Glucose 156 72 Alanine Aminotransferase (ALT/SGPT) 48 Albumin 2.2 L Albumin/Globulin Ratio 0.48 Alkaline Phosphatase 231 H Ammonia < 9 L Anion Gap 14 Anisocytosis 1+ Aspartate Amino Transf (AST/SGOT) 75 H Basophils # 0.1 Basophils % 1.0 Blood Morphology Comment Blood Urea Nitrogen 16 Calcium Level 8.6 Carbon Dioxide Level 23 Chloride Level 107 Creatinine 0.52 L Differential Comment MANUAL DIFF Direct Bilirubin 0.00 Globulin 4.50 H Glucose Level 85 Hematocrit 31.7 #L Hemoglobin 10.4 #L Hypochromasia 1+ Indirect Bilirubin 0.4 Lymphocytes # 0.7 L Lymphocytes % 11.0 L Mean Corpuscular Hemoglobin 28.8 L Mean Corpuscular Hemoglobin Concent 32.7 Mean Corpuscular Volume 88.1 Mean Platelet Volume 8.5 Monocytes # 0.5 Monocytes % 8.0 Neutrophils # 5.2 Neutrophils % 80.0 H Platelet Count 201 # Potassium Level 3.7 Red Blood Count 3.60 #L Red Cell Distribution Width 16.5 H Sodium Level 140 Total Bilirubin 0.4 Total Protein 6.7 White Blood Count 6.5 Medications Medications Current Medications Ondansetron HCl (Zofran Inj) 4 mg Q6H PRN IV NAUSEA AND/OR VOMITING; Start 05/07/16 at 19:30 Morphine Sulfate (morphine) 2 mg Q4H PRN IV SEVERE PAIN LEVEL 7-10 Last administered on 05/23/16at 04:03; Admin Dose 2 MG; Start 05/07/16 at 19:30 Docusate Sodium (Colace) 100 mg Q12H PRN PO CONSTIPATION; Start 05/07/16 at 19: 30 IV Flush (NS 10 ml) 10 ml PRN PRN IV IV PROTOCOL; Start 05/17/16 at 12:00 Diagnostic Test (Pha) (Accucheck) 1 ea Q6 XX Last administered on 06/12/16 11: 38; Admin Dose 1 EA; Start 05/28/16 at 12:00 Lorazepam (Ativan) 1 mg Q8 PRN IV AGITATION/ANXIETY; Start 05/28/16 at 22:00 Levothyroxine Sodium (Synthroid Iv) 50 mcg DAILY@06 IV Last administered on 05:17; Admin Dose 50 MCG; Start 05/29/16 at 06:00 Miscellaneous Information 1 ea NOTE XX ; Start 05/30/16 at 11:30 Pantoprazole (Protonix Iv) 40 mg DAILY@06 IV Last administered on 06/12/16 05: 17; Admin Dose 40 MG; Start 06/01/16 at 06:00 Clonidine HCl (Catapres-Tts 1 Patch) 1 patch Q7D TRANSDERM Last administered on 06/01/16at 13:53; Admin Dose 1 PATCH; Start 06/01/16 at 13:30 Lactulose (Lactulose Enema) 100 ml [place] Last administered on 06/12/16 10:24; Admin Dose 100 ML; Start 06/03/16 at 09:00 Haloperidol (Haldol) 5 mg HS IM Last administered on 06/11/16 20:48; Admin Dose 5 MG; Start 06/02/16 at 21:00 Acetaminophen (Tylenol Supp) 650 mg Q6H PRN [place] MILD PAIN/FEVER Last administered on 06/10/16 06:10; Admin Dose 650 MG; Start 06/08/16 at 16:30 Insulin Aspart (Novolog Insulin Pen) NOVOLOG *MILD* ALGORI... Q6 SC Last administered on 06/10/16 11:40; Admin Dose 1 UNIT; Start 06/08/16 at 18:00 Miscellaneous Information 1 ea NOTE XX ; Start 06/08/16 at 18:30 Glucose (Glutose) 15 gm Q15M PRN PO DECREASED GLUCOSE; Start 06/08/16 at 18:30 Glucose (Glutose) 22.5 gm Q15M PRN PO DECREASED GLUCOSE; Start 06/08/16 at 18:30 Dextrose (D50w Syringe) 25 ml Q15M PRN IV DECREASED GLUCOSE; Start 06/08/16 at 18:30 Dextrose (D50w Syringe) 50 ml Q15M PRN IV DECREASED GLUCOSE; Start 06/08/16 at 18:30 Glucagon (Glucagen) 1 mg Q15M PRN IM DECREASED GLUCOSE; Start 06/08/16 at 18:30 Glucose 15 gm 15 gm Q15M PRN BUCCAL DECREASED GLUCOSE; Start 06/08/16 at 18:30 Vancomycin HCl/ Sodium Chloride (Vancocin/NS) 150 ml @ 75 mls/hr Q12H IVPB Last administered on 06/12/16 10:24; Admin Dose 75 MLS/HR; Start 06/10/16 at 23: 00 Salmeterol Xinafoate/ Fluticasone 1 inh 1 inh BID INH Last administered on 06/12 08:33; Admin Dose 1 INH; Start 06/10/16 at 18:30 Dextrose/Sodium Chloride (D5-1/2ns) 1,000 ml @ 80 mls/hr [id number] IV Last administered on 06/11/16t 09:53; Admin Dose 80 MLS/HR; Start 06/10/16 at 18:00 KASH OLVERA Jun 12, 2016 13:26
--- NOTE | 2016-06-12 14:23 | CONS ---
Date/Time of Note Date/Time of Note DATE: 06/12/16 TIME: 14:21 Consult Date/Type/Reason Admit Date/Time May 07, 2016 at 14:39 Initial Consult Date 05/20/16 Type of Consultation: ID Ordering Provider: KASH OLVERA Subjective more awake, no fevers, nad Objective Vital Signs Date Time Temp Pulse Resp B/P Pulse Ox O2 Delivery O2 Flow Rate FiO2 06/12/16 08:46 Nasal Cannula 06/12/16 07:39 98.4 87 18 131/72 94 06/12/16 05:50 21 06/11/16 21:35 2.0 Intake and Output 06/11/16 06/11/16 06/12/16 15:00 23:00 07:00 Intake Total 320 ml 150 ml 835 ml Balance 320 ml 150 ml 835 ml Results/Medications Result Diagram: 06/12/1625 06/12/16924 Results 24 hrs Laboratory Tests Test 06/11/16 17:05 06/11/16 18:12 06/11/16 21:56 06/11/16 23:21 Alanine Aminotransferase (ALT/SGPT) 49 Albumin 2.5 L Albumin/Globulin Ratio 0.51 Alkaline Phosphatase 236 H Anion Gap 15 Aspartate Amino Transf (AST/SGOT) 80 H Blood Urea Nitrogen 16 Calcium Level 8.6 Carbon Dioxide Level 22 Chloride Level 107 Creatinine 0.47 L Direct Bilirubin 0.00 Globulin 4.90 H Glucose Level 92 INR International Normalized Ratio 1.50 Indirect Bilirubin 0.4 Potassium Level 3.6 Prothrombin Time 18.2 H Prothrombin Time Ratio 1.4 Sodium Level 140 Total Bilirubin 0.4 Total Protein 7.4 Bedside Glucose 98 122 Vancomycin Level Trough 13.0 Test 06/12/16 05:13 06/12/16 09:25 06/12/16 11:38 Bedside Glucose 156 72 Alanine Aminotransferase (ALT/SGPT) 48 Albumin 2.2 L Albumin/Globulin Ratio 0.48 Alkaline Phosphatase 231 H Ammonia < 9 L Anion Gap 14 Anisocytosis 1+ Aspartate Amino Transf (AST/SGOT) 75 H Basophils # 0.1 Basophils % 1.0 Blood Morphology Comment Blood Urea Nitrogen 16 Calcium Level 8.6 Carbon Dioxide Level 23 Chloride Level 107 Creatinine 0.52 L Differential Comment MANUAL DIFF Direct Bilirubin 0.00 Globulin 4.50 H Glucose Level 85 Hematocrit 31.7 #L Hemoglobin 10.4 #L Hypochromasia 1+ Indirect Bilirubin 0.4 Lymphocytes # 0.7 L Lymphocytes % 11.0 L Mean Corpuscular Hemoglobin 28.8 L Mean Corpuscular Hemoglobin Concent 32.7 Mean Corpuscular Volume 88.1 Mean Platelet Volume 8.5 Monocytes # 0.5 Monocytes % 8.0 Neutrophils # 5.2 Neutrophils % 80.0 H Platelet Count 201 # Potassium Level 3.7 Red Blood Count 3.60 #L Red Cell Distribution Width 16.5 H Sodium Level 140 Total Bilirubin 0.4 Total Protein 6.7 White Blood Count 6.5 Medications Current Medications Ondansetron HCl (Zofran Inj) 4 mg Q6H PRN IV NAUSEA AND/OR VOMITING; Start 05/07/16 at 19:30 Morphine Sulfate (morphine) 2 mg Q4H PRN IV SEVERE PAIN LEVEL 7-10 Last administered on 05/23/16at 04:03; Admin Dose 2 MG; Start 05/07/16 at 19:30 Docusate Sodium (Colace) 100 mg Q12H PRN PO CONSTIPATION; Start 05/07/16 at 19: 30 IV Flush (NS 10 ml) 10 ml PRN PRN IV IV PROTOCOL; Start 05/17/16 at 12:00 Diagnostic Test (Pha) (Accucheck) 1 ea Q6 XX Last administered on 06/12/16 11: 38; Admin Dose 1 EA; Start 05/28/16 at 12:00 Lorazepam (Ativan) 1 mg Q8 PRN IV AGITATION/ANXIETY; Start 05/28/16 at 22:00 Levothyroxine Sodium (Synthroid Iv) 50 mcg DAILY@06 IV Last administered on 05:17; Admin Dose 50 MCG; Start 05/29/16 at 06:00 Miscellaneous Information 1 ea NOTE XX ; Start 05/30/16 at 11:30 Pantoprazole (Protonix Iv) 40 mg DAILY@06 IV Last administered on 06/12/16 05: 17; Admin Dose 40 MG; Start 06/01/16 at 06:00 Clonidine HCl (Catapres-Tts 1 Patch) 1 patch Q7D TRANSDERM Last administered on 06/01/16at 13:53; Admin Dose 1 PATCH; Start 06/01/16 at 13:30 Lactulose (Lactulose Enema) 100 ml [place] Last administered on 06/12/16 10:24; Admin Dose 100 ML; Start 06/03/16 at 09:00 Haloperidol (Haldol) 5 mg HS IM Last administered on 06/11/16 20:48; Admin Dose 5 MG; Start 06/02/16 at 21:00 Acetaminophen (Tylenol Supp) 650 mg Q6H PRN [place] MILD PAIN/FEVER Last administered on 06/10/16 06:10; Admin Dose 650 MG; Start 06/08/16 at 16:30 Insulin Aspart (Novolog Insulin Pen) NOVOLOG *MILD* ALGORI... Q6 SC Last administered on 06/10/16 11:40; Admin Dose 1 UNIT; Start 06/08/16 at 18:00 Miscellaneous Information 1 ea NOTE XX ; Start 06/08/16 at 18:30 Glucose (Glutose) 15 gm Q15M PRN PO DECREASED GLUCOSE; Start 06/08/16 at 18:30 Glucose (Glutose) 22.5 gm Q15M PRN PO DECREASED GLUCOSE; Start 06/08/16 at 18:30 Dextrose (D50w Syringe) 25 ml Q15M PRN IV DECREASED GLUCOSE; Start 06/08/16 at 18:30 Dextrose (D50w Syringe) 50 ml Q15M PRN IV DECREASED GLUCOSE; Start 06/08/16 at 18:30 Glucagon (Glucagen) 1 mg Q15M PRN IM DECREASED GLUCOSE; Start 06/08/16 at 18:30 Glucose 15 gm 15 gm Q15M PRN BUCCAL DECREASED GLUCOSE; Start 06/08/16 at 18:30 Vancomycin HCl/ Sodium Chloride (Vancocin/NS) 150 ml @ 75 mls/hr Q12H IVPB Last administered on 06/12/16 10:24; Admin Dose 75 MLS/HR; Start 06/10/16 at 23: 00 Salmeterol Xinafoate/ Fluticasone 1 inh 1 inh BID INH Last administered on 06/12 08:33; Admin Dose 1 INH; Start 06/10/16 at 18:30 Dextrose/Sodium Chloride (D5-1/2ns) 1,000 ml @ 80 mls/hr [id number] IV Last administered on 06/11/16 09:53; Admin Dose 80 MLS/HR; Start 06/10/16 at 18:00 Assessment/Plan Chief Complaint/Hosp Course MICROBIOLOGY: Blood culture growing coagulase-negative staph species. On 2016, urine culture growing enterococcus species. DIAGNOSTICS: Chest x-ray on 06/08/2016 showed mild pulmonary edema. ANTIMICROBIALS: IV vancomycin. PHYSICAL EXAMINATION: GENERAL: This is a chronically ill-appearing, elderly man who is noncommunicative. He is in no distress. HEENT: Head atraumatic, normocephalic. Sclerae anicteric. Buccal mucosa dry. NECK: Supple, trachea midline. CHEST: Rise symmetrical. Breath sounds diminished to bases. HEART: S1, S2. ABDOMEN: Distended with mild tenderness over suprapubic area. EXTREMITIES: Without cyanosis. ASSESSMENT: 1. Sepsis with coagulase-negative staphylococcus bacteremia status post peripherally inserted central catheter line discontinued. 2. Enterococcal urinary tract infection. 3. Urinary retention. 4. Status post pneumonia, respiratory failure. 5. History of alcohol abuse. 6. Homelessness. 7. Status post gastrointestinal bleed secondary to varices. The patient had esophagogastroduodenoscopy with banding. 8. Encephalopathy. PLAN: Clinically improving, repeat bld cx negative, continue abx, aspiration precautions, monitor PVR, straight cath prn DW staff Problems: SELMA FLORES NP Jun 12, 2016 14:22
--- NOTE | 2016-06-12 15:32 | RADRPT ---
PROCEDURE: XR Chest. CLINICAL INDICATION: Shortness of breath. Wheezing and hypoxia. TECHNIQUE: Single frontal view. COMPARISON: 06/08/2016. FINDINGS: The left arm PICC line has been removed. There is bilateral perihilar air space and interstitial di sease consistent with pulmonary edema, worse than seen previously. The lungs are otherwise clear. The heart size is normal. There is no pleural effusion. There is no pneumothorax. IMPRESSION: 1. Left arm PICC line removed. 2. Pulmonary edema, worse than seen previously. RPTAT: QQ .Omar Moreira MD, MD Date Time Electronically viewed and signed by .Omar Moreira MD, MD on 06/12/2016 15:32 .R/
[2016-06-12] MEDS ORDERED: PROPOFOL 20 ML ONE (16:36)
[2016-06-12] MEDS ORDERED: LIDOCAINE 2% (SDV) 5 ML INJ ONE (16:36)
[2016-06-12] MEDS ORDERED: MIDAZOLAM 1 MG/ML 2 ML INJ ONE (16:36)
[2016-06-12] MEDS ORDERED: ONDANSETRON 4 MG INJ IV PRN (17:30)
[2016-06-12] MEDS ORDERED: FENTAnyl 50 MCG/ML VIAL IV PRN (17:30)
[2016-06-12] MEDS ORDERED: ALBUTEROL 0.5% (NEB) 2.5 MG/0.5 ML AMP ONE (17:36)
[2016-06-12] MEDS ORDERED: ALBUTEROL 0.5% (NEB) 2.5 MG/0.5 ML AMP HHN STA (17:42)
--- NOTE | 2016-06-12 19:46 | GILP ---
DATE OF PROCEDURE: 06/12/2016 NAME OF PROCEDURE: Esophagogastroduodenoscopy with percutaneous endoscopic gastrostomy tube placeme nt. SURGEON: Maia Ochoa MD HISTORY AND INDICATIONS: The patient with aspiration pneumonia, aspiration events. PREMEDICATION: Monitored anesthesia care by anesthesiologist. INSTRUMENT USED: Olympus panendoscope. TECHNIQUE: After informed consent, with the patient and/or family members understanding the procedu re, its indications, potential risks and complications, including but not limited to: allergic react ion, bleeding, perforation, infection or leakage, and after all pertinent questions were answered to the patient and/or family members satisfaction, the patient and/or family member signed witnessed i nformed consent. Following this, premedication was administered slowly IV push, under careful cardiovascular and resp iratory monitoring with pulse oximetry, blood pressure and child monitor. Once the sedative effect was achieved the patient was place in the supine position, the panendoscope was introduced and advanced under visual guidance. Careful examination of the upper gastrointestinal tract, on insertion as well as withdrawal of the i nstrument disclosed the following findings: ESOPHAGUS: The esophagus remarkable for presence of grade II/IV esophageal varices. Evidence of recent endoscopic variceal ligation is also present. STOMACH: Upon entrance to the stomach air was insufflated, the gastric thompson distended normally. Th e mucosa of the fundus, body and antrum of the stomach was carefully examined both head-on and on re troflexion, and shows no abnormalities. There is no evidence of gastritis, ulcers or neoplasm. PYLORUS: The pylorus appears patent and within normal limits, with no evidence of gastric outlet ob struction. DUODENUM: The duodenal mucosa was carefully examined in the duodenal bulb as well as the second por tion of the duodenum and appears unremarkable with no evidence of duodenitis, ulcer or neoplasm. The instrument was then brought back to the stomach, and the anterior wall mid-body was identified b y transillumination and "finger indentation." This area was then marked in the anterior wall of the abdomen, it was cleansed with Betadine and infiltrated with Xylocaine 1%. Following this a trocar n eedle was introduced into the gastric lumen under visual control with the endoscope, once in the gas tric lumen a guide wire was advanced and secured with a polypectomy snare, at this point the endosco pe was withdrawn bringing the guide wire out through the patients mouth. Following this a gastrostom y tube was introduced over the guide wire, with the Sacks-Vinne technique without difficulty, a smal l incision was performed in the skin to allow easy passage of the G-tube, once the position of the g astrostomy tube was confirmed, the external stopper and connectors were installed, and a clean dress ing applied. Gastrostomy tube used was a Indonesian 20 gastrostomy tube. The patient tolerated the procedure well and was transferred out of the endoscopy suite awake and in good condition to continue recovery under observation. Feedings will started in the next 12-24h an d gastrostomy care will be instituted. IMPRESSION: 1. Grade II/IV esophageal varices with no stigmata. 2. Uneventful percutaneous endoscopic gastrostomy tube placement, placement of Indonesian 20 gastrostom y tube with no incident or complication. PLAN: The patient will be started on feedings tomorrow. Gastrostomy tube may be used for medicatio ns. Dictated By: MAIA SEXTON Conf#: [id number] DID#: [id number]
[2016-06-12] MEDS: HALOPERIDOL 5 MG INJ IM SCH (20:54)
[2016-06-13] MEDS: ACCUCHECK XX SCH ×4 (00:10→18:00)
[2016-06-13] MEDS: VANCOMYCIN 750 MG in SOD CHLORIDE 0.9% 150 ML IVPB SCH ×3 (00:24→23:27)
[2016-06-13] MEDS: IPRATROPIUM (HFA) 12.9 GM INHALER INH SCH ×6 (01:00→20:57)
[2016-06-13] MEDS: ALBUTEROL HFA 8 GM INHALER INH SCH ×6 (01:00→20:57)
[2016-06-13] MEDS: ALBUTEROL 0.083% (NEB) 2.5 MG/3 ML AMP HHN PRN (02:13)
[2016-06-13] MEDS: LEVOTHYROXINE 100 MCG VIAL IV SCH (05:27)
[2016-06-13] MEDS: PANTOPRAZOLE 40 MG INJ IV SCH (05:27)
[2016-06-13] MEDS: INSULIN ASPART [NOVOLOG] 3 ML PEN SC SCH ×5 (05:27→23:33)
[2016-06-13 07:46] VITALS: BP 132/64; RESP 18
[2016-06-13] MEDS: SALMETEROL/FLUTICASONE 250/50 INHA INH SCH ×2 (09:16→20:56)
--- NOTE | 2016-06-13 11:18 | PN ---
Date/Time of Note Date/Time of Note DATE: 06/13/16 TIME: 11:09 Assessment/Plan VTE Prophylaxis VTE Prophylaxis Intervention: SCD's VTE Contraindication Reason: bleeding Lines/Catheters IV Catheter Type (from Nrs): Peripheral IV Urinary Cath still in place: No Assessment/Plan Assessment/Plan 70 M homeless alcoholic who had originally come in with GI bleed 2/2 varices and has had a prolonged and complicated hospitalization now managed as follows: 1. Sepsis: resolved ID concerned for Line sepsis / Currently on PICC line holiday / ID managing abx, appreciate input 2. Coagulase +staph bacteremia: Repeat blood cultures and urine culture negative / f/u ID recs 3. Enterococcus UTI: abx per ID 4. GI bleed : s/p EGD x 2 for bleed on this admission with findings of esophageal varices s/p banding on both studies closely monitor hgb/ GI following / appreciate input 5. Encephalopathy + Dysphagia Patient's mental status has improved considerably since early admission with the use antipsychotics; will convert to PO He is now oriented x4 but very lethargic 6. S/p Resp failure + ventilator dependence now extubated with lots of residual rhonchi / ?stridor Continue scheduled bronchodilator therapy / added inhaled steroids / continue PRN O2 7. Alcoholism with Alcoholic liver cirrhosis causing #5 + coagulopathy Continue lactulose / monitor coag profile / intervene PRN 8. Acute on chronic anemia 2/2 Blood loss +#7 +FTT see above 9. Homelessness: CM working on SNF placement 10. Newly diagnosed Hypothyroidism- on Levothyroxine 11. HTN: controlled on clonidine patch Dispo Change meds to via PEG Continue supportive care Placement pending. Serial lab monitoring Further evaluation and treatment will be based on clinical course Full discussion with care team done. All questions Answered Please also see orders.. Subjective 24 Hr Interval Summary Free Text/Dictation Patient seen and examined. Nursing reports no acute overnight events. patient got PEG tube placed yesterday, has been started on feeds. Exam/Review of Systems Vital Signs Vitals Vital Signs Date Time Temp Pulse Resp B/P Pulse Ox O2 Delivery O2 Flow Rate FiO2 06/13/16 07:46 98.6 72 18 132/64 96 06/13/16 02:13 Nasal Cannula 2.0 06/12/16 05:50 21 Intake and Output 1/04/1806/12/16 06/13/16 14:59 22:59 06:59 Intake Total 710 ml 550 ml Balance 710 ml 550 ml Results Result Diagram: 06/12/1692406/12/16924 Results 24 hrs Laboratory Tests Test 06/12/16 11:38 06/13/16 00:07 06/13/16 05:23 Bedside Glucose 72 104 99 Medications Medications Current Medications Ondansetron HCl (Zofran Inj) 4 mg Q6H PRN IV NAUSEA AND/OR VOMITING; Start 05/07/16 at 19:30 Morphine Sulfate (morphine) 2 mg Q4H PRN IV SEVERE PAIN LEVEL 7-10 Last administered on 05/23/16at 04:03; Admin Dose 2 MG; Start 05/07/16 at 19:30 Docusate Sodium (Colace) 100 mg Q12H PRN PO CONSTIPATION; Start 05/07/16 at 19: 30 IV Flush (NS 10 ml) 10 ml PRN PRN IV IV PROTOCOL; Start 05/17/16 at 12:00 Diagnostic Test (Pha) (Accucheck) 1 ea Q6 XX Last administered on 06/13/16 05: 28; Admin Dose 1 EA; Start 05/28/16 at 12:00 Lorazepam (Ativan) 1 mg Q8 PRN IV AGITATION/ANXIETY; Start 05/28/16 at 22:00 Levothyroxine Sodium (Synthroid Iv) 50 mcg DAILY@06 IV Last administered on 05:27; Admin Dose 50 MCG; Start 05/29/16 at 06:00 Miscellaneous Information 1 ea NOTE XX ; Start 05/30/16 at 11:30 Pantoprazole (Protonix Iv) 40 mg DAILY@06 IV Last administered on 06/13/16 05: 27; Admin Dose 40 MG; Start 06/01/16 at 06:00 Clonidine HCl (Catapres-Tts 1 Patch) 1 patch Q7D TRANSDERM Last administered on 06/01/16at 13:53; Admin Dose 1 PATCH; Start 06/01/16 at 13:30 Lactulose (Lactulose Enema) 100 ml [id number] Last administered on 06/12/16 10:24; Admin Dose 100 ML; Start 06/03/16 at 09:00 Haloperidol (Haldol) 5 mg HS IM Last administered on 06/12/16 20:54; Admin Dose 5 MG; Start 06/02/16 at 21:00 Acetaminophen (Tylenol Supp) 650 mg Q6H PRN [place] MILD PAIN/FEVER Last administered on 06/10/16 06:10; Admin Dose 650 MG; Start 06/08/16 at 16:30 Insulin Aspart (Novolog Insulin Pen) NOVOLOG *MILD* ALGORI... Q6 SC Last administered on 06/10/16 11:40; Admin Dose 1 UNIT; Start 06/08/16 at 18:00 Miscellaneous Information 1 ea NOTE XX ; Start 06/08/16 at 18:30 Glucose (Glutose) 15 gm Q15M PRN PO DECREASED GLUCOSE; Start 06/08/16 at 18:30 Glucose (Glutose) 22.5 gm Q15M PRN PO DECREASED GLUCOSE; Start 06/08/16 at 18:30 Dextrose (D50w Syringe) 25 ml Q15M PRN IV DECREASED GLUCOSE; Start 06/08/16 at 18:30 Dextrose (D50w Syringe) 50 ml Q15M PRN IV DECREASED GLUCOSE; Start 06/08/16 at 18:30 Glucagon (Glucagen) 1 mg Q15M PRN IM DECREASED GLUCOSE; Start 06/08/16 at 18:30 Glucose 15 gm 15 gm Q15M PRN BUCCAL DECREASED GLUCOSE; Start 06/08/16 at 18:30 Vancomycin HCl/ Sodium Chloride (Vancocin/NS) 150 ml @ 75 mls/hr Q12H IVPB Last administered on 06/13/16 00:24; Admin Dose 75 MLS/HR; Start 06/10/16 at 23: 00 Salmeterol Xinafoate/ Fluticasone 1 inh 1 inh BID INH Last administered on 06/13 09:16; Admin Dose 1 INH; Start 06/10/16 at 18:30 Dextrose/Sodium Chloride (D5-1/2ns) 1,000 ml @ 80 mls/hr [id number] IV Last administered on 06/12/16 22:01; Admin Dose 80 MLS/HR; Start 06/10/16 at 18:00 KASH OLVERA Jun 13, 2016 11:18
[2016-06-13] MEDS: LACTULOSE 30ML CUP PEG SCH ×2 (12:39→20:56)
[2016-06-13] MEDS: LEVOTHYROXINE 50 MCG TAB PEG SCH (12:40)
--- NOTE | 2016-06-13 15:37 | CONS ---
Date/Time of Note Date/Time of Note DATE: 06/13/16 TIME: 15:34 Assessment/Plan Assessment/Plan Additional Assessment/Plan Hematemesis/GI bleeding 05/17/2016 EGD Multiple esophageal ulcers, with no evidence of bleeding. Residual esophageal varices, one of the varices with stigmata of recent bleeding. Post- endoscopic variceal ligation x3. No additional potential sources of bleeding identified. 05/09/2016 EGD: Grade IV/IV esophageal varices with stigmata of recent bleeding "white plug."Post-endoscopic variceal ligation x4. Alcoholic cirrhosis Portal hypertension/esophageal varices with bleeding post EVL Ascites Encephalopathy History of EtOH abuse Dysphagia 1. Grade II/IV esophageal varices with no stigmata. 2. Uneventful percutaneous endoscopic gastrostomy tube placement, placement of Romanian 20 gastrostomy tube with no incident or complication Further recommendations depend on clinical course Patient seen in collaboration with Dr. Ochoa. Consultation Date/Type/Reason Admit Date/Time May 07, 2016 at 14:39 Type of Consultation: GI Referring Provider: KASH OLVERA 24 HR Interval Summary Free Text/Dictation Successful EGD plus PEG Tube feed at 50 mL Hemoglobin stable Exam/Review of Systems Vital Signs Vitals Vital Signs Date Time Temp Pulse Resp B/P Pulse Ox O2 Delivery O2 Flow Rate FiO2 06/13/16 11:26 Nasal Cannula 2.0 06/13/16 07:46 98.6 72 18 132/64 96 06/12/16 05:50 21 Intake and Output 06/12/16 06/12/16 06/13/16 15:00 23:00 07:00 Intake Total 710 ml 550 ml Balance 710 ml 550 ml Exam Constitutional: alert, frail, oriented Psych: nl mood/affect Eyes: EOMI, icteric Respiratory: normal air movement Cardiovascular: regular rate and rhythm Gastrointestinal: non-tender, soft Neurological: nl speech, nl strength Results Result Diagram: 06/12/1692406/12/16924 Results 24 hrs Laboratory Tests Test 06/13/16 00:07 06/13/16 05:23 06/13/16 12:38 Bedside Glucose 104 99 101 Medications Medications Current Medications Ondansetron HCl (Zofran Inj) 4 mg Q6H PRN IV NAUSEA AND/OR VOMITING; Start 05/07/16 at 19:30 Morphine Sulfate (morphine) 2 mg Q4H PRN IV SEVERE PAIN LEVEL 7-10 Last administered on 05/23/16at 04:03; Admin Dose 2 MG; Start 05/07/16 at 19:30 Docusate Sodium (Colace) 100 mg Q12H PRN PO CONSTIPATION; Start 05/07/16 at 19: 30 IV Flush (NS 10 ml) 10 ml PRN PRN IV IV PROTOCOL; Start 05/17/16 at 12:00 Diagnostic Test (Pha) (Accucheck) 1 ea Q6 XX Last administered on 06/13/16 12: 38; Admin Dose 1 EA; Start 05/28/16 at 12:00 Lorazepam (Ativan) 1 mg Q8 PRN IV AGITATION/ANXIETY; Start 05/28/16 at 22:00 Miscellaneous Information 1 ea NOTE XX ; Start 05/30/16 at 11:30 Pantoprazole (Protonix Iv) 40 mg DAILY@06 IV Last administered on 06/13/16 05: 27; Admin Dose 40 MG; Start 06/01/16 at 06:00 Clonidine HCl (Catapres-Tts 1 Patch) 1 patch Q7D TRANSDERM Last administered on 06/01/16at 13:53; Admin Dose 1 PATCH; Start 06/01/16 at 13:30 Acetaminophen (Tylenol Supp) 650 mg Q6H PRN [place] MILD PAIN/FEVER Last administered on 06/10/16 06:10; Admin Dose 650 MG; Start 06/08/16 at 16:30 Insulin Aspart (Novolog Insulin Pen) NOVOLOG *MILD* [place]I... Q6 SC Last administered on 06/10/16 11:40; Admin Dose 1 UNIT; Start 06/08/16 at 18:00 Miscellaneous Information 1 ea NOTE XX ; Start 06/08/16 at 18:30 Glucose (Glutose) 15 gm Q15M PRN PO DECREASED GLUCOSE; Start 06/08/16 at 18:30 Glucose (Glutose) 22.5 gm Q15M PRN PO DECREASED GLUCOSE; Start 06/08/16 at 18:30 Dextrose (D50w Syringe) 25 ml Q15M PRN IV DECREASED GLUCOSE; Start 06/08/16 at 18:30 Dextrose (D50w Syringe) 50 ml Q15M PRN IV DECREASED GLUCOSE; Start 06/08/16 at 18:30 Glucagon (Glucagen) 1 mg Q15M PRN IM DECREASED GLUCOSE; Start 06/08/16 at 18:30 Glucose 15 gm 15 gm Q15M PRN BUCCAL DECREASED GLUCOSE; Start 06/08/16 at 18:30 Vancomycin HCl/ Sodium Chloride (Vancocin/NS) 150 ml @ 75 mls/hr Q12H IVPB Last administered on 06/13/16 00:24; Admin Dose 75 MLS/HR; Start 06/10/16 at 23: 00 Salmeterol Xinafoate/ Fluticasone (Advair 250/50 Diskus) 1 inh BID INH Last administered on 06/13/16 09:16; Admin Dose 1 INH; Start 06/10/16 at 18:30 Lactulose (Enulose) 10 gm Q12 PEG Last administered on 06/13/16 12:39; Admin Dose 10 GM; Start 06/13/16 at 12:00 Levothyroxine Sodium (Synthroid) 50 mcg DAILY@06 PEG Last administered on 12:40; Admin Dose 50 MCG; Start 06/13/16 at 12:00 GEOVANNI ALMODOVAR Jun 13, 2016 15:36
--- NOTE | 2016-06-13 15:54 | CONS ---
Date/Time of Note Date/Time of Note DATE: 06/13/16 TIME: 15:53 Consult Date/Type/Reason Admit Date/Time May 07, 2016 at 14:39 Initial Consult Date 05/20/16 Type of Consultation: id Ordering Provider: KASH OLVERA Subjective no events, awake, looks comfortable, no fevers Objective Vital Signs Date Time Temp Pulse Resp B/P Pulse Ox O2 Delivery O2 Flow Rate FiO2 06/13/16 11:26 Nasal Cannula 2.0 06/13/16 07:46 98.6 72 18 132/64 96 06/12/16 05:50 21 Intake and Output 06/12/16 06/12/16 06/13/16 15:00 23:00 07:00 Intake Total 710 ml 550 ml Balance 710 ml 550 ml Results/Medications Result Diagram: 06/12/1692406/12/16924 Results 24 hrs Laboratory Tests Test 06/13/16 00:07 06/13/16 05:23 06/13/16 12:38 Bedside Glucose 104 99 101 Medications Current Medications Ondansetron HCl (Zofran Inj) 4 mg Q6H PRN IV NAUSEA AND/OR VOMITING; Start 05/07/16 at 19:30 Morphine Sulfate (morphine) 2 mg Q4H PRN IV SEVERE PAIN LEVEL 7-10 Last administered on 05/23/16at 04:03; Admin Dose 2 MG; Start 05/07/16 at 19:30 Docusate Sodium (Colace) 100 mg Q12H PRN PO CONSTIPATION; Start 05/07/16 at 19: 30 IV Flush (NS 10 ml) 10 ml PRN PRN IV IV PROTOCOL; Start 05/17/16 at 12:00 Diagnostic Test (Pha) (Accucheck) 1 ea Q6 XX Last administered on 06/13/16 12: 38; Admin Dose 1 EA; Start 05/28/16 at 12:00 Lorazepam (Ativan) 1 mg Q8 PRN IV AGITATION/ANXIETY; Start 05/28/16 at 22:00 Miscellaneous Information 1 ea NOTE XX ; Start 05/30/16 at 11:30 Pantoprazole (Protonix Iv) 40 mg DAILY@06 IV Last administered on 06/13/16 05: 27; Admin Dose 40 MG; Start 06/01/16 at 06:00 Clonidine HCl (Catapres-Tts 1 Patch) 1 patch Q7D TRANSDERM Last administered on 06/01/16at 13:53; Admin Dose 1 PATCH; Start 06/01/16 at 13:30 Acetaminophen (Tylenol Supp) 650 mg Q6H PRN [place] MILD PAIN/FEVER Last administered on 06/10/16 06:10; Admin Dose 650 MG; Start 06/08/16 at 16:30 Insulin Aspart (Novolog Insulin Pen) NOVOLOG *MILD* ALGORI... Q6 SC Last administered on 06/10/16 11:40; Admin Dose 1 UNIT; Start 06/08/16 at 18:00 Miscellaneous Information 1 ea NOTE XX ; Start 06/08/16 at 18:30 Glucose (Glutose) 15 gm Q15M PRN PO DECREASED GLUCOSE; Start 06/08/16 at 18:30 Glucose (Glutose) 22.5 gm Q15M PRN PO DECREASED GLUCOSE; Start 06/08/16 at 18:30 Dextrose (D50w Syringe) 25 ml Q15M PRN IV DECREASED GLUCOSE; Start 06/08/16 at 18:30 Dextrose (D50w Syringe) 50 ml Q15M PRN IV DECREASED GLUCOSE; Start 06/08/16 at 18:30 Glucagon (Glucagen) 1 mg Q15M PRN IM DECREASED GLUCOSE; Start 06/08/16 at 18:30 Glucose 15 gm 15 gm Q15M PRN BUCCAL DECREASED GLUCOSE; Start 06/08/16 at 18:30 Vancomycin HCl/ Sodium Chloride (Vancocin/NS) 150 ml @ 75 mls/hr Q12H IVPB Last administered on 06/13/16 15:00; Admin Dose 75 MLS/HR; Start 06/10/16 at 23: 00 Salmeterol Xinafoate/ Fluticasone (Advair 250/50 Diskus) 1 inh BID INH Last administered on 06/13/16 09:16; Admin Dose 1 INH; Start 06/10/16 at 18:30 Lactulose (Enulose) 10 gm Q12 PEG Last administered on 06/13/16 12:39; Admin Dose 10 GM; Start 06/13/16 at 12:00 Levothyroxine Sodium (Synthroid) 50 mcg DAILY@06 PEG Last administered on 12:40; Admin Dose 50 MCG; Start 06/13/16 at 12:00 Assessment/Plan Chief Complaint/Hosp Course MICROBIOLOGY: Blood culture growing coagulase-negative staph species. On 2016, urine culture growing enterococcus species. DIAGNOSTICS: Chest x-ray on 06/08/2016 showed mild pulmonary edema. ANTIMICROBIALS: IV vancomycin. PHYSICAL EXAMINATION: GENERAL: This is a chronically ill-appearing, elderly man who is noncommunicative. He is in no distress. HEENT: Head atraumatic, normocephalic. Sclerae anicteric. Buccal mucosa dry. NECK: Supple, trachea midline. CHEST: Rise symmetrical. Breath sounds diminished to bases. HEART: S1, S2. ABDOMEN: Distended with mild tenderness over suprapubic area. EXTREMITIES: Without cyanosis. ASSESSMENT: 1. Sepsis with coagulase-negative staphylococcus bacteremia status post peripherally inserted central catheter line discontinued. 2. Enterococcal urinary tract infection. 3. Urinary retention. 4. Status post pneumonia, respiratory failure. 5. History of alcohol abuse. 6. Homelessness. 7. Status post gastrointestinal bleed secondary to varices. The patient had esophagogastroduodenoscopy with banding. 8. Encephalopathy. PLAN: Clinically improving, repeat bld cx negative, continue abx, aspiration precautions, monitor PVR, straight cath prn DW staff Problems: SELMA FLORES NP Jun 13, 2016 15:54
[2016-06-13 20:23] VITALS: BP 130/85; RESP 20
[2016-06-13] MEDS ORDERED: OLANZAPINE 2.5 MG TAB PEG SCH (21:00)
[2016-06-14] MEDS: ACCUCHECK XX SCH ×4 (00:57→17:28)
[2016-06-14] MEDS: IPRATROPIUM (HFA) 12.9 GM INHALER INH SCH ×6 (01:29→20:28)
[2016-06-14] MEDS: ALBUTEROL HFA 8 GM INHALER INH SCH ×6 (01:29→20:28)
[2016-06-14] MEDS: LEVOTHYROXINE 50 MCG TAB PEG SCH (05:51)
[2016-06-14] MEDS: PANTOPRAZOLE 40 MG INJ IV SCH (05:51)
[2016-06-14] MEDS: INSULIN ASPART [NOVOLOG] 3 ML PEN SC SCH ×3 (05:55→17:33)
[2016-06-14 08:45] VITALS: BP 153/83; RESP 20
[2016-06-14] MEDS: SALMETEROL/FLUTICASONE 250/50 INHA INH SCH ×2 (09:25→20:27)
[2016-06-14] MEDS: LACTULOSE 30ML CUP PEG SCH ×2 (09:26→20:32)
[2016-06-14] MEDS: ALBUTEROL 0.083% (NEB) 2.5 MG/3 ML AMP HHN PRN ×2 (10:20→21:23)
[2016-06-14 10:47] LABS: HEMATOCRIT 33.2 % (42.0-52.0); HEMOGLOBIN 10.9 g/dl (14.0-18.0); MEAN CORPUSCULAR HEMOGLOBIN 28.5 pg (29.0-33.0); MEAN CORPUSCULAR HGB CONC 32.7 g/dl (32.0-37.0); MEAN CORPUSCULAR VOLUME 87.1 fl (82.0-101.0); MEAN PLATELET VOLUME 9.1 fl (7.4-10.4); PLATELET COUNT 226 10^3/UL (140-440); RED BLOOD COUNT 3.82 10^6/ul (4.70-6.10); RED CELL DISTRIBUTION WIDTH 16.6 % (11.5-14.5); UNCORRECTED WBC 10.3 10^3/ul (4.8-10.8); WHITE BLOOD COUNT 10.3 10^3/ul (4.8-10.8)
[2016-06-14 10:55] LABS: CONDITION 1; LH ANALYZER COMMENTS 1
[2016-06-14 11:01] LABS: ALBUMIN 2.6 g/dl (3.3-4.9)
[2016-06-14 11:02] LABS: POTASSIUM 3.7 mmol/L (3.5-5.1)
[2016-06-14 11:04] LABS: ALBUMIN/GLOBULIN RATIO 0.49; BILIRUBIN,INDIRECT 0.5 mg/dl (0-1.1); BILIRUBIN,TOTAL 0.5 mg/dl (0.2-1.3); CREATININE 0.46 mg/dl (0.61-1.24); TOTAL PROTEIN 7.9 g/dl (6.1-8.1)
[2016-06-14 11:05] LABS: CALCIUM 8.8 mg/dl (8.4-10.2)
[2016-06-14] MEDS ORDERED: VANCOMYCIN 1 GM in NS 250 ML IVPB SCH (12:00)
--- NOTE | 2016-06-14 12:47 | CONS ---
Date/Time of Note Date/Time of Note DATE: 06/14/16 TIME: 12:45 Consult Date/Type/Reason Admit Date/Time May 07, 2016 at 14:39 Initial Consult Date 05/20/16 Type of Consultation: id Ordering Provider: KASH OLVERA Subjective no events, no fevers, NAD Objective Vital Signs Date Time Temp Pulse Resp B/P Pulse Ox O2 Delivery O2 Flow Rate FiO2 06/14/16 10:21 79 24 96 Nasal Cannula 2.0 06/14/16 08:45 97.9 153/83 06/12/16 05:50 21 Intake and Output 06/13/16 06/13/16 06/14/16 15:00 23:00 07:00 Intake Total 600 ml 510 ml Balance 600 ml 510 ml Results/Medications Result Diagram: 06/14/16 1005 06/14/16 1005 Results 24 hrs Laboratory Tests Test 06/13/16 23:31 06/14/16 05:54 06/14/16 10:05 06/14/16 11:21 Bedside Glucose 119 105 109 Alanine Aminotransferase (ALT/SGPT) 51 Albumin 2.6 L Albumin/Globulin Ratio 0.49 Alkaline Phosphatase 247 H Ammonia 11 Anion Gap 15 Aspartate Amino Transf (AST/SGOT) 74 H Blood Morphology Comment Blood Urea Nitrogen 11 Calcium Level 8.8 Carbon Dioxide Level 23 Chloride Level 110 Creatinine 0.46 L Direct Bilirubin 0.00 Globulin 5.30 H Glucose Level 111 Hematocrit 33.2 L Hemoglobin 10.9 L Indirect Bilirubin 0.5 Mean Corpuscular Hemoglobin 28.5 L Mean Corpuscular Hemoglobin Concent 32.7 Mean Corpuscular Volume 87.1 Mean Platelet Volume 9.1 Platelet Count 226 Potassium Level 3.7 Red Blood Count 3.82 L Red Cell Distribution Width 16.6 H Sodium Level 144 Total Bilirubin 0.5 Total Protein 7.9 Vancomycin Level Trough 10.9 White Blood Count 10.3 # Medications Current Medications Ondansetron HCl (Zofran Inj) 4 mg Q6H PRN IV NAUSEA AND/OR VOMITING; Start 05/07/16 at 19:30 Morphine Sulfate (morphine) 2 mg Q4H PRN IV SEVERE PAIN LEVEL 7-10 Last administered on 05/23/16at 04:03; Admin Dose 2 MG; Start 05/07/16 at 19:30 Docusate Sodium (Colace) 100 mg Q12H PRN PO CONSTIPATION; Start 05/07/16 at 19: 30 IV Flush (NS 10 ml) 10 ml PRN PRN IV IV PROTOCOL; Start 05/17/16 at 12:00 Diagnostic Test (Pha) (Accucheck) 1 ea Q6 XX Last administered on 06/14/16 11: 57; Admin Dose 1 EA; Start 05/28/16 at 12:00 Lorazepam (Ativan) 1 mg Q8 PRN IV AGITATION/ANXIETY; Start 05/28/16 at 22:00 Miscellaneous Information 1 ea NOTE XX ; Start 05/30/16 at 11:30 Pantoprazole (Protonix Iv) 40 mg DAILY@06 IV Last administered on 06/14/16 05: 51; Admin Dose 40 MG; Start 06/01/16 at 06:00 Clonidine HCl (Catapres-Tts 1 Patch) 1 patch Q7D TRANSDERM Last administered on 06/01/16at 13:53; Admin Dose 1 PATCH; Start 06/01/16 at 13:30 Acetaminophen (Tylenol Supp) 650 mg Q6H PRN [place] MILD PAIN/FEVER Last administered on 06/10/16 06:10; Admin Dose 650 MG; Start 06/08/16 at 16:30 Insulin Aspart (Novolog Insulin Pen) NOVOLOG *MILD* ALGORI... Q6 SC Last administered on 06/10/16 11:40; Admin Dose 1 UNIT; Start 06/08/16 at 18:00 Miscellaneous Information 1 ea NOTE XX ; Start 06/08/16 at 18:30 Glucose (Glutose) 15 gm Q15M PRN PO DECREASED GLUCOSE; Start 06/08/16 at 18:30 Glucose (Glutose) 22.5 gm Q15M PRN PO DECREASED GLUCOSE; Start 06/08/16 at 18:30 Dextrose (D50w Syringe) 25 ml Q15M PRN IV DECREASED GLUCOSE; Start 06/08/16 at 18:30 Dextrose (D50w Syringe) 50 ml Q15M PRN IV DECREASED GLUCOSE; Start 06/08/16 at 18:30 Glucagon (Glucagen) 1 mg Q15M PRN IM DECREASED GLUCOSE; Start 06/08/16 at 18:30 Glucose (Glutose) 15 gm Q15M PRN BUCCAL DECREASED GLUCOSE; Start 06/08/16 at 18: 30 Salmeterol Xinafoate/ Fluticasone (Advair 250/50 Diskus) 1 inh BID INH Last administered on 06/14/16 09:25; Admin Dose 1 INH; Start 06/10/16 at 18:30 Lactulose (Enulose) 10 gm Q12 PEG Last administered on 06/14/16 09:26; Admin Dose 10 GM; Start 06/13/16 at 12:00 Levothyroxine Sodium 50 mcg 50 mcg DAILY@06 PEG Last administered on 06/14/16 05:51; Admin Dose 50 MCG; Start 06/13/16 at 12:00 Vancomycin HCl (Vancocin) 250 ml @ 125 mls/hr Q12H IVPB ; Start 06/14/16 at 12: 00 Assessment/Plan Chief Complaint/Hosp Course MICROBIOLOGY: Blood culture growing coagulase-negative staph species 06/08, , urine culture growing enterococcus species. DIAGNOSTICS: Chest x-ray on 06/08/2016 showed mild pulmonary edema. ANTIMICROBIALS: IV vancomycin. PHYSICAL EXAMINATION: GENERAL: This is a chronically ill-appearing, elderly man who is noncommunicative. He is in no distress. HEENT: Head atraumatic, normocephalic. Sclerae anicteric. Buccal mucosa dry. NECK: Supple, trachea midline. CHEST: Rise symmetrical. Breath sounds diminished to bases. HEART: S1, S2. ABDOMEN: Distended with mild tenderness over suprapubic area. EXTREMITIES: Without cyanosis. ASSESSMENT: 1. Sepsis with coagulase-negative staphylococcus bacteremia status post peripherally inserted central catheter line discontinued. 2. Enterococcal urinary tract infection. 3. Urinary retention. 4. Status post pneumonia, respiratory failure. 5. History of alcohol abuse. 6. Homelessness. 7. Status post gastrointestinal bleed secondary to varices. The patient had esophagogastroduodenoscopy with banding. 8. Encephalopathy. PLAN: Clinically stable, repeat bld cx still growing staph, continue abx, consider PICC, 2D ECHO if not done DW staff Problems: SELMA FLORES NP Jun 14, 2016 12:47
[2016-06-14 12:55] LABS: LYMPHOCYTES # 1.5 10^3/ul (0.8-2.9); MONOCYTE # 0.4 10^3/ul (0.3-0.9); NEUTROPHIL # 8.2 10^3/ul (1.6-7.5)
[2016-06-14] MEDS ORDERED: LIDOCAINE 1% (MDV) 20 ML INJ SC ONE (13:30)
--- NOTE | 2016-06-14 15:07 | PN ---
Date/Time of Note Date/Time of Note DATE: 06/14/16 TIME: 15:02 Assessment/Plan VTE Prophylaxis VTE Prophylaxis Intervention: SCD's Lines/Catheters IV Catheter Type (from [facility]): Saline Lock Urinary Cath still in place: No Assessment/Plan Assessment/Plan 70 M homeless alcoholic who had originally come in with GI bleed 2/2 varices and has had a prolonged and complicated hospitalization now managed as follows: 1. Sepsis: resolved s/p line holiday / PICC line to be replaced today / ID managing abx, appreciate input 2. Coagulase +staph bacteremia: Repeat blood cultures and urine culture negative / f/u ID recs 3. Enterococcus UTI: abx per ID 4. GI bleed : s/p EGD x 2 for bleed on this admission with findings of esophageal varices s/p banding on both studies closely monitor hgb/ GI following / appreciate input 5. Encephalopathy + Dysphagia Patient's mental status has improved considerably since early admission with the use antipsychotics; will convert to PO He is now oriented x4 but very lethargic 6. S/p Resp failure + ventilator dependence now extubated with lots of residual rhonchi / ?stridor Continue scheduled bronchodilator therapy / added inhaled steroids / continue PRN O2 7. Alcoholism with Alcoholic liver cirrhosis causing #5 + coagulopathy Patient likely needs a repeat paracentesis now for distention / Continue lactulose / monitor coag profile / intervene PRN 8. Acute on chronic anemia 2/2 Blood loss +#7 +FTT see above 9. Homelessness: CM working on SNF placement 10. Newly diagnosed Hypothyroidism- on Levothyroxine 11. HTN: controlled on clonidine patch Dispo Continue PEG feeds / add chlorhexidine mouthwash to regimen Continue supportive care Placement pending. Serial lab monitoring Further evaluation and treatment will be based on clinical course Full discussion with care team done. All questions Answered Please also see orders.. Subjective 24 Hr Interval Summary Free Text/Dictation Patient seen and examined. Nursing reports no acute overnight events. Still very debilitated Exam/Review of Systems Vital Signs Vitals Vital Signs Date Time Temp Pulse Resp B/P Pulse Ox O2 Delivery O2 Flow Rate FiO2 06/14/16 13:26 Nasal Cannula 2.0 06/14/16 10:21 79 24 96 06/14/16 08:45 97.9 153/83 06/12/16 05:50 21 Intake and Output 06/13/16 06/13/16 06/14/16 15:00 23:00 07:00 Intake Total 600 ml 510 ml Balance 600 ml 510 ml Exam Constitutional: alert, oriented, No distress Head: normocephalic Eyes: icteric ENMT: other (still with very poor oral hygiene) Respiratory: diminished breath sounds, other (upper airway congestion improved , but still present), wheezing Cardiovascular: regular rate and rhythm, No murmurs/extra sounds Gastrointestinal: ascites (?), bowel sounds, distended, soft Musculoskeletal: other (severe msc wasting) Neurological: lethargic Results Result Diagram: 06/14/16 1005 06/14/16 1005 Results 24 hrs Laboratory Tests Test 06/13/16 23:31 06/14/16 05:54 06/14/16 10:05 06/14/16 11:21 Bedside Glucose 119 105 109 Alanine Aminotransferase (ALT/SGPT) 51 Albumin 2.6 L Albumin/Globulin Ratio 0.49 Alkaline Phosphatase 247 H Ammonia 11 Anion Gap 15 Aspartate Amino Transf (AST/SGOT) 74 H Blood Morphology Comment Blood Urea Nitrogen 11 Calcium Level 8.8 Carbon Dioxide Level 23 Chloride Level 110 Creatinine 0.46 L Direct Bilirubin 0.00 Globulin 5.30 H Glucose Level 111 Hematocrit 33.2 L Hemoglobin 10.9 L Indirect Bilirubin 0.5 Lymphocytes # 1.5 Lymphocytes % 15.0 Mean Corpuscular Hemoglobin 28.5 L Mean Corpuscular Hemoglobin Concent 32.7 Mean Corpuscular Volume 87.1 Mean Platelet Volume 9.1 Monocytes # 0.4 Monocytes % 4.0 Neutrophils # 8.2 H Neutrophils % 80.0 H Platelet Count 226 Potassium Level 3.7 Promyelocytes # 0.1 Promyelocytes % 1.0 H Red Blood Count 3.82 L Red Cell Distribution Width 16.6 H Sodium Level 144 Total Bilirubin 0.5 Total Protein 7.9 Vancomycin Level Trough 10.9 White Blood Count 10.3 # Medications Medications Current Medications Ondansetron HCl (Zofran Inj) 4 mg Q6H PRN IV NAUSEA AND/OR VOMITING; Start 05/07/16 at 19:30 Morphine Sulfate (morphine) 2 mg Q4H PRN IV SEVERE PAIN LEVEL 7-10 Last administered on 05/23/16at 04:03; Admin Dose 2 MG; Start 05/07/16 at 19:30 Docusate Sodium (Colace) 100 mg Q12H PRN PO CONSTIPATION; Start 05/07/16 at 19: 30 IV Flush (NS 10 ml) 10 ml PRN PRN IV IV PROTOCOL; Start 05/17/16 at 12:00 Diagnostic Test (Pha) (Accucheck) 1 ea Q6 XX Last administered on 06/14/16 11: 57; Admin Dose 1 EA; Start 05/28/16 at 12:00 Lorazepam (Ativan) 1 mg Q8 PRN IV AGITATION/ANXIETY; Start 05/28/16 at 22:00 Miscellaneous Information 1 ea NOTE XX ; Start 05/30/16 at 11:30 Pantoprazole (Protonix Iv) 40 mg DAILY@06 IV Last administered on 06/14/16 05: 51; Admin Dose 40 MG; Start 06/01/16 at 06:00 Clonidine HCl (Catapres-Tts 1 Patch) 1 patch Q7D TRANSDERM Last administered on 06/01/16at 13:53; Admin Dose 1 PATCH; Start 06/01/16 at 13:30 Acetaminophen (Tylenol Supp) 650 mg Q6H PRN [place] MILD PAIN/FEVER Last administered on 06/10/16 06:10; Admin Dose 650 MG; Start 06/08/16 at 16:30 Insulin Aspart (Novolog Insulin Pen) NOVOLOG *MILD* ALGORI... Q6 SC Last administered on 06/10/16 11:40; Admin Dose 1 UNIT; Start 06/08/16 at 18:00 Miscellaneous Information 1 ea NOTE XX ; Start 06/08/16 at 18:30 Glucose (Glutose) 15 gm Q15M PRN PO DECREASED GLUCOSE; Start 06/08/16 at 18:30 Glucose (Glutose) 22.5 gm Q15M PRN PO DECREASED GLUCOSE; Start 06/08/16 at 18:30 Dextrose (D50w Syringe) 25 ml Q15M PRN IV DECREASED GLUCOSE; Start 06/08/16 at 18:30 Dextrose (D50w Syringe) 50 ml Q15M PRN IV DECREASED GLUCOSE; Start 06/08/16 at 18:30 Glucagon (Glucagen) 1 mg Q15M PRN IM DECREASED GLUCOSE; Start 06/08/16 at 18:30 Glucose (Glutose) 15 gm Q15M PRN BUCCAL DECREASED GLUCOSE; Start 06/08/16 at 18: 30 Salmeterol Xinafoate/ Fluticasone (Advair 250/50 Diskus) 1 inh BID INH Last administered on 06/14/16 09:25; Admin Dose 1 INH; Start 06/10/16 at 18:30 Lactulose (Enulose) 10 gm Q12 PEG Last administered on 06/14/16 09:26; Admin Dose 10 GM; Start 06/13/16 at 12:00 Levothyroxine Sodium 50 mcg 50 mcg DAILY@06 PEG Last administered on 06/14/16 05:51; Admin Dose 50 MCG; Start 06/13/16 at 12:00 Vancomycin HCl (Vancocin) 250 ml @ 125 mls/hr Q12H IVPB ; Start 06/14/16 at 12: 00 KASH OLVERA Jun 14, 2016 15:07
--- NOTE | 2016-06-14 16:00 | RADRPT ---
PROCEDURE: XR Chest. CLINICAL INDICATION: PICC line placement TECHNIQUE: PA and lateral chest x-ray. COMPARISON: 06/12/2016 chest radiograph. FINDINGS: Mildly elevated right hemidiaphragm. Left-sided PICC line in satisfactory position. Prominence of the pulmonary vasculature and central interstitial edema suggestive of mild congestion . No focal consolidation. No pleural effusion or pneumothorax. The cardiomediastinal silhouette is unremarkable. The osseous structures are unremarkable. IMPRESSION: Left-sided PICC line in satisfactory position. Prominence of the pulmonary vasculature and central interstitial edema suggestive of mild congestion , improved from previous examination. No focal consolidation. RPTAT: AADD .Romain Simms MD, MD Date Time Electronically viewed and signed by .Romain Simms MD, MD on 06/14/2016 16:00 .B/
--- NOTE | 2016-06-14 18:41 | CONS ---
Date/Time of Note Date/Time of Note DATE: 06/14/16 TIME: 18:38 Assessment/Plan Assessment/Plan Additional Assessment/Plan Hematemesis/GI bleeding 05/17/2016 EGD Multiple esophageal ulcers, with no evidence of bleeding. Residual esophageal varices, one of the varices with stigmata of recent bleeding. Post- endoscopic variceal ligation x3. No additional potential sources of bleeding identified. 05/09/2016 EGD: Grade IV/IV esophageal varices with stigmata of recent bleeding "white plug."Post-endoscopic variceal ligation x4. Alcoholic cirrhosis Portal hypertension/esophageal varices with bleeding post EVL Ascites Encephalopathy History of EtOH abuse Dysphagia, status post EGD plus PEG 1. Grade II/IV esophageal varices with no stigmata. 2. Uneventful percutaneous endoscopic gastrostomy tube placement, placement of [place] 20 gastrostomy tube with no incident or complication 3. Recommend Peptamen 1.5 @ 20mL/hr increase by 10mL every 8hr to 35mL/hr. per nutrition Further recommendations depend on clinical course Patient seen in collaboration with Dr. Ochoa. Consultation Date/Type/Reason Admit Date/Time May 07, 2016 at 14:39 Type of Consultation: Gastroenterology Referring Provider: KASH OLVERA 24 HR Interval Summary Free Text/Dictation Hemoglobin stable Tube feed running at 20mL with minimal residual PICC line inserted today Exam/Review of Systems Vital Signs Vitals Vital Signs Date Time Temp Pulse Resp B/P Pulse Ox O2 Delivery O2 Flow Rate FiO2 06/14/16 13:26 Nasal Cannula 2.0 06/14/16 10:21 79 24 96 06/14/16 08:45 97.9 153/83 06/12/16 05:50 21 Intake and Output 06/13/16 06/13/16 06/14/16 15:00 23:00 07:00 Intake Total 600 ml 510 ml Balance 600 ml 510 ml Exam Constitutional: alert, frail, oriented Psych: nl mood/affect Eyes: EOMI, icteric Respiratory: normal air movement Cardiovascular: regular rate and rhythm Gastrointestinal: non-tender, soft Neurological: nl speech, nl strength Results Result Diagram: 06/14/16 1005 06/14/16 1005 Results 24 hrs Laboratory Tests Test 06/13/16 23:31 06/14/16 05:54 06/14/16 10:05 06/14/16 11:21 Bedside Glucose 119 105 109 Alanine Aminotransferase (ALT/SGPT) 51 Albumin 2.6 L Albumin/Globulin Ratio 0.49 Alkaline Phosphatase 247 H Ammonia 11 Anion Gap 15 Aspartate Amino Transf (AST/SGOT) 74 H Blood Morphology Comment Blood Urea Nitrogen 11 Calcium Level 8.8 Carbon Dioxide Level 23 Chloride Level 110 Creatinine 0.46 L Direct Bilirubin 0.00 Globulin 5.30 H Glucose Level 111 Hematocrit 33.2 L Hemoglobin 10.9 L Indirect Bilirubin 0.5 Lymphocytes # 1.5 Lymphocytes % 15.0 Mean Corpuscular Hemoglobin 28.5 L Mean Corpuscular Hemoglobin Concent 32.7 Mean Corpuscular Volume 87.1 Mean Platelet Volume 9.1 Monocytes # 0.4 Monocytes % 4.0 Neutrophils # 8.2 H Neutrophils % 80.0 H Platelet Count 226 Potassium Level 3.7 Promyelocytes # 0.1 Promyelocytes % 1.0 H Red Blood Count 3.82 L Red Cell Distribution Width 16.6 H Sodium Level 144 Total Bilirubin 0.5 Total Protein 7.9 Vancomycin Level Trough 10.9 White Blood Count 10.3 # Test 06/14/16 17:26 Bedside Glucose 95 Medications Medications Current Medications Ondansetron HCl (Zofran Inj) 4 mg Q6H PRN IV NAUSEA AND/OR VOMITING; Start 05/07/16 at 19:30 Morphine Sulfate (morphine) 2 mg Q4H PRN IV SEVERE PAIN LEVEL 7-10 Last administered on 05/23/16at 04:03; Admin Dose 2 MG; Start 05/07/16 at 19:30 Docusate Sodium (Colace) 100 mg Q12H PRN PO CONSTIPATION; Start 05/07/16 at 19: 30 IV Flush (NS 10 ml) 10 ml PRN PRN IV IV PROTOCOL; Start 05/17/16 at 12:00 Diagnostic Test (Pha) (Accucheck) 1 ea Q6 XX Last administered on 06/14/16 17: 28; Admin Dose 1 EA; Start 05/28/16 at 12:00 Lorazepam (Ativan) 1 mg Q8 PRN IV AGITATION/ANXIETY; Start 05/28/16 at 22:00 Miscellaneous Information 1 ea NOTE XX ; Start 05/30/16 at 11:30 Pantoprazole (Protonix Iv) 40 mg DAILY@06 IV Last administered on 06/14/16 05: 51; Admin Dose 40 MG; Start 06/01/16 at 06:00 Clonidine HCl (Catapres-Tts 1 Patch) 1 patch Q7D TRANSDERM Last administered on 06/01/16at 13:53; Admin Dose 1 PATCH; Start 06/01/16 at 13:30 Acetaminophen (Tylenol Supp) 650 mg Q6H PRN [place] MILD PAIN/FEVER Last administered on 06/10/16 06:10; Admin Dose 650 MG; Start 06/08/16 at 16:30 Insulin Aspart (Novolog Insulin Pen) NOVOLOG *MILD* ALGORI... Q6 SC Last administered on 06/10/16 11:40; Admin Dose 1 UNIT; Start 06/08/16 at 18:00 Miscellaneous Information 1 ea NOTE XX ; Start 06/08/16 at 18:30 Glucose (Glutose) 15 gm Q15M PRN PO DECREASED GLUCOSE; Start 06/08/16 at 18:30 Glucose (Glutose) 22.5 gm Q15M PRN PO DECREASED GLUCOSE; Start 06/08/16 at 18:30 Dextrose (D50w Syringe) 25 ml Q15M PRN IV DECREASED GLUCOSE; Start 06/08/16 at 18:30 Dextrose (D50w Syringe) 50 ml Q15M PRN IV DECREASED GLUCOSE; Start 06/08/16 at 18:30 Glucagon (Glucagen) 1 mg Q15M PRN IM DECREASED GLUCOSE; Start 06/08/16 at 18:30 Glucose (Glutose) 15 gm Q15M PRN BUCCAL DECREASED GLUCOSE; Start 06/08/16 at 18: 30 Salmeterol Xinafoate/ Fluticasone (Advair 250/50 Diskus) 1 inh BID INH Last administered on 06/14/16 09:25; Admin Dose 1 INH; Start 06/10/16 at 18:30 Lactulose (Enulose) 10 gm Q12 PEG Last administered on 06/14/16 09:26; Admin Dose 10 GM; Start 06/13/16 at 12:00 Levothyroxine Sodium 50 mcg 50 mcg DAILY@06 PEG Last administered on 06/14/16 05:51; Admin Dose 50 MCG; Start 06/13/16 at 12:00 Vancomycin HCl (Vancocin) 250 ml @ 125 mls/hr Q12H IVPB Last administered on 1 /13/17at 17:28; Admin Dose 125 MLS/HR; Start 06/14/16 at 12:00 Chlorhexidine Gluconate (Peridex) 15 ml BID MT ; Start 06/14/16 at 21:00 IV Flush (NS 10 ml) 10 ml PRN PRN IV PRN; Start 06/14/16 at 16:00 IV Flush (NS 10 ml) 10 ml PRN PRN IV IV PROTOCOL; Start 06/14/16 at 17:30 GEOVANNI ALMODOVAR Jun 14, 2016 18:40
--- NOTE | 2016-06-14 19:33 | RADRPT ---
Echocardiogram Report Patient Name: LISSY RODRIGUEZ Gender: Male Date: 1945 Study Date: 14-Jun-2016 [place] [employer] Officer: Jaime Haney [facility] Location: [facility] Ref. Physician: SELMA FLORES Quality: Good Procedures: Transthoracic echocardiogram with complete 2D, M-Mode, and doppler examination. Indications: r/o vegetation. 2D/M Mode Doppler Measurement Value Normal Ranges Measurement Value Normal Ranges LVIDd 2D 4.2 3.5 - 5.6 cm AV Peak Rangel 1.8 m/sec LVIDs 2D 2.3 2.1 - 4.1 cm AV Peak PG 13.1 mmHg LVPWd 2D 0.8 0.6 - 1.1 cm LVOT Peak Rangel 0.9 m/sec IVSd 2D 0.8 0.6 - 1.1 cm LVOT Peak PG 3.5 mmHg AoR Diam 2D 2.7 2.0 - 3.7 cm MV E Peak Rangel 0.7 m/sec EDV 2D 80.3 cm3 MV A Peak Rangel 0.9 m/sec ESV 2D 12.3 cm3 MV E/A 0.8 LA Dimen 2D 3.0 2.3 - 4.0 cm MV Decel Time 169 msec MV Decel Union 4 MV E/A 0.8 TR Peak Rangel 2.5 m/sec TR Peak PG 25.4 mmHg RVSP 28.0 mmHg Findings Left Ventricle: Normal left ventricular systolic function. Normal left ventricular cavity size. Normal left ventricular wall thickness. Ejection fraction is visually estimated at 55 %. Tissue Doppler/Mitral Doppler indices are consistent with impaired relaxation (Stage I diastolic dysfunction). Right Ventricle: Normal right ventricular size. Normal right ventricular systolic function. Left Atrium: The left atrium is normal in size. Right Atrium: The right atrium is normal in size. Mitral Valve: Normal appearance of the mitral valve. Mild mitral annular calcification. There is trace to mild mitral valve regurgitation. Aortic Valve: Normal appearance of the aortic valve. No significant aortic stenosis or insufficiency. Tricuspid Valve: Normal appearance of the tricuspid valve. Estimated peak PA systolic pressure 28 mmHg. There is mild tricuspid regurgitation. Pericardium: Normal pericardium with no significant pericardial effusion. Left pleural effusion seen. Aorta: Normal aortic root. IVC: Normal size and normal respiratory collapse consistent with normal right atrial pressure. Conclusions 1.Normal left ventricular systolic function. Normal left ventricular cavity size. Normal left ventricular wall thickness. Ejection fraction is visually estimated at 55 %. Tissue Doppler/Mitral Doppler indices are consistent with impaired relaxation (Stage I diastolic dysfunction). 2.Normal right ventricular size. Normal right ventricular systolic function. 3.Normal appearance of the mitral valve. Mild mitral annular calcification. There is trace to mild mitral valve regurgitation. 4.Normal appearance of the tricuspid valve. Estimated peak PA systolic pressure 28 mmHg. There is mild tricuspid regurgitation. 5.No definite valvular vegetations noted on any of the well visualized valvular apparati. Electronically Signed By: Issa Ching 14-Jun-2016 19:32:40 -0800 Patient Name: LISSY RODRIGUEZ Study Date: 14-Jun-[id number]
[2016-06-14 20:13] VITALS: BP 135/73; RESP 20
[2016-06-14] MEDS: CHLORHEXIDINE GLUCONATE 15 ML UD CUP MT SCH (20:32)
[2016-06-15] MEDS: IPRATROPIUM (HFA) 12.9 GM INHALER INH SCH ×5 (00:40→16:56)
[2016-06-15] MEDS: ACCUCHECK XX SCH ×5 (00:40→23:43)
[2016-06-15] MEDS: ALBUTEROL HFA 8 GM INHALER INH SCH ×4 (00:40→13:01)
[2016-06-15] MEDS: VANCOMYCIN 1 GM in NS 250 ML IVPB SCH ×2 (03:12→14:16)
[2016-06-15] MEDS: LEVOTHYROXINE 50 MCG TAB PEG SCH (05:31)
[2016-06-15] MEDS: INSULIN ASPART [NOVOLOG] 3 ML PEN SC SCH ×5 (05:31→23:42)
[2016-06-15] MEDS: PANTOPRAZOLE 40 MG INJ IV SCH (05:31)
[2016-06-15] MEDS: ALBUTEROL 0.083% (NEB) 2.5 MG/3 ML AMP HHN PRN ×2 (05:50→10:14)
[2016-06-15 07:20] VITALS: BP 112/75; RESP 22
[2016-06-15] MEDS: CHLORHEXIDINE GLUCONATE 15 ML UD CUP MT SCH ×2 (08:22→21:48)
[2016-06-15] MEDS: LACTULOSE 30ML CUP PEG SCH ×2 (08:26→21:48)
[2016-06-15] MEDS: SALMETEROL/FLUTICASONE 250/50 INHA INH SCH ×2 (10:46→23:41)
--- NOTE | 2016-06-15 11:31 | PN ---
Date/Time of Note Date/Time of Note DATE: 06/15/16 TIME: 11:25 Assessment/Plan VTE Prophylaxis VTE Prophylaxis Intervention: SCD's VTE Contraindication Reason: bleeding Lines/Catheters IV Catheter Type (from Nrsg): PICC Line Central line still needed: Yes Urinary Cath still in place: No Assessment/Plan Assessment/Plan 70 M homeless alcoholic who had originally come in with GI bleed 2/2 varices and has had a prolonged and complicated hospitalization now managed as follows: 1. Sepsis: resolved s/p line holiday / PICC line re-inserted / ID managing abx, appreciate input 2. Coagulase +staph bacteremia: Repeat blood cultures and urine culture negative / f/u ID recs 3. Enterococcus UTI: abx per ID 4. GI bleed : s/p EGD x 2 for bleed on this admission with findings of esophageal varices s/p banding on both studies closely monitor hgb/ GI following / appreciate input 5. Encephalopathy + Dysphagia Patient's mental status has improved considerably since early admission with the use antipsychotics; He is now oriented x4 but very lethargic, all antipsychotics held d/t severe lethargy 6. S/p Resp failure + ventilator dependence now extubated with lots of residual rhonchi / ?stridor Continue scheduled bronchodilator therapy / added inhaled steroids / continue PRN O2 / gentle diuresis 7. Alcoholism with Alcoholic liver cirrhosis causing #5 + coagulopathy Patient likely needs a repeat paracentesis now for distention / Continue lactulose / monitor coag profile / intervene PRN 8. Acute on chronic anemia 2/2 Blood loss +#7 +FTT see above 9. Homelessness: CM working on SNF placement 10. Newly diagnosed Hypothyroidism- on Levothyroxine 11. HTN: controlled on clonidine patch Dispo Continue PEG feeds / paracentesis planned probably today Continue supportive care Placement pending. Serial lab monitoring Further evaluation and treatment will be based on clinical course Full discussion with care team done. All questions Answered Please also see orders.. Subjective 24 Hr Interval Summary Free Text/Dictation Patient seen and examined. Nursing reports no acute overnight events. still with abd discomfort and distention pending paracentesis Exam/Review of Systems Vital Signs Vitals Vital Signs Date Time Temp Pulse Resp B/P Pulse Ox O2 Delivery O2 Flow Rate FiO2 06/15/16 10:14 101 22 96 21 06/15/16 07:20 98.3 112/75 06/15/16 05:51 Nasal Cannula 2.0 Intake and Output 06/14/16 06/14/16 06/15/16 15:00 23:00 07:00 Intake Total 670 ml 800 ml Balance 670 ml 800 ml Exam Constitutional: alert, oriented, No distress Head: normocephalic Eyes: icteric ENMT: other (?improved oral hygiene) Respiratory: diminished breath sounds, other (upper airway congestion improved , but still present), wheezing Cardiovascular: regular rate and rhythm, No murmurs/extra sounds Gastrointestinal: ascites (?), bowel sounds, distended, soft Musculoskeletal: other (severe msc wasting) Neurological: lethargic Results Result Diagram: 06/14/16 1005 06/14/16 1005 Results 24 hrs Laboratory Tests Test 06/14/16 17:26 06/15/16 05:26 Bedside Glucose 95 105 Medications Medications Current Medications Ondansetron HCl (Zofran Inj) 4 mg Q6H PRN IV NAUSEA AND/OR VOMITING; Start 05/07/16 at 19:30 Morphine Sulfate (morphine) 2 mg Q4H PRN IV SEVERE PAIN LEVEL 7-10 Last administered on 05/23/16at 04:03; Admin Dose 2 MG; Start 05/07/16 at 19:30 Docusate Sodium (Colace) 100 mg Q12H PRN PO CONSTIPATION; Start 05/07/16 at 19: 30 IV Flush (NS 10 ml) 10 ml PRN PRN IV IV PROTOCOL; Start 05/17/16 at 12:00 Diagnostic Test (Pha) (Accucheck) 1 ea Q6 XX Last administered on 06/15/16 05: 31; Admin Dose 1 EA; Start 05/28/16 at 12:00 Lorazepam (Ativan) 1 mg Q8 PRN IV AGITATION/ANXIETY; Start 05/28/16 at 22:00 Pantoprazole (Protonix Iv) 40 mg DAILY@06 IV Last administered on 06/15/16 05: 31; Admin Dose 40 MG; Start 06/01/16 at 06:00 Clonidine HCl (Catapres-Tts 1 Patch) 1 patch Q7D TRANSDERM Last administered on 06/01/16at 13:53; Admin Dose 1 PATCH; Start 06/01/16 at 13:30 Acetaminophen (Tylenol Supp) 650 mg Q6H PRN [place] MILD PAIN/FEVER Last administered on 06/10/16 06:10; Admin Dose 650 MG; Start 06/08/16 at 16:30 Insulin Aspart (Novolog Insulin Pen) NOVOLOG *MILD* ALGORI... Q6 SC Last administered on 06/10/16 11:40; Admin Dose 1 UNIT; Start 06/08/16 at 18:00 Miscellaneous Information 1 ea NOTE XX ; Start 06/08/16 at 18:30 Glucose (Glutose) 15 gm Q15M PRN PO DECREASED GLUCOSE; Start 06/08/16 at 18:30 Glucose (Glutose) 22.5 gm Q15M PRN PO DECREASED GLUCOSE; Start 06/08/16 at 18:30 Dextrose (D50w Syringe) 25 ml Q15M PRN IV DECREASED GLUCOSE; Start 06/08/16 at 18:30 Dextrose (D50w Syringe) 50 ml Q15M PRN IV DECREASED GLUCOSE; Start 06/08/16 at 18:30 Glucagon (Glucagen) 1 mg Q15M PRN IM DECREASED GLUCOSE; Start 06/08/16 at 18:30 Glucose (Glutose) 15 gm Q15M PRN BUCCAL DECREASED GLUCOSE; Start 06/08/16 at 18: 30 Salmeterol Xinafoate/ Fluticasone (Advair 250/50 Diskus) 1 inh BID INH Last administered on 06/15/16 10:46; Admin Dose 1 INH; Start 06/10/16 at 18:30 Lactulose (Enulose) 10 gm Q12 PEG Last administered on 06/15/16 08:26; Admin Dose 10 GM; Start 06/13/16 at 12:00 Levothyroxine Sodium (Synthroid) 50 mcg DAILY@06 PEG Last administered on 05:31; Admin Dose 50 MCG; Start 06/13/16 at 12:00 Chlorhexidine Gluconate (Peridex) 15 ml BID MT Last administered on 06/15/16 08:22; Admin Dose 15 ML; Start 06/14/16 at 21:00 IV Flush (NS 10 ml) 10 ml PRN PRN IV PRN; Start 06/14/16 at 16:00 IV Flush 10 ml 10 ml PRN PRN IV IV PROTOCOL; Start 1/13/17 at 17:30 Vancomycin HCl (Vancocin) 250 ml @ 125 mls/hr Q12H IVPB Last administered on t 03:12; Admin Dose 125 MLS/HR; Start 06/15/16 at 03:00 Procedures Procedures PROCEDURE: XR Chest. CLINICAL INDICATION: PICC line placement TECHNIQUE: PA and lateral chest x-ray. COMPARISON: 06/12/2016 chest radiograph. FINDINGS: Mildly elevated right hemidiaphragm. Left-sided PICC line in satisfactory position. Prominence of the pulmonary vasculature and central interstitial edema suggestive of mild congestion. No focal consolidation. No pleural effusion or pneumothorax. The cardiomediastinal silhouette is unremarkable. The osseous structures are unremarkable. IMPRESSION: Left-sided PICC line in satisfactory position. Prominence of the pulmonary vasculature and central interstitial edema suggestive of mild congestion, improved from previous examination. No focal consolidation. RPTAT: AADD .Romain Simms MD, MD Date Time Electronically viewed and signed by .Romain Simms MD, MD on 06/14/2016 16:00 .KASH CHANG Jun 15, 2016 11:30
--- NOTE | 2016-06-15 11:31 | RADRPT ---
PROCEDURE: Ultrasound guidance for placement of needle in left upper extremity vein. CLINICAL INDICATION: Venous access. TECHNIQUE: Limited sonography of the left upper extremity was performed. Ultrasound images were recorded and s tored in the patient's medical record. COMPARISON: None. FINDINGS: The ultrasound images demonstrate a patent left upper extremity vein. The PICC line was inserted by the PICC line nurse. IMPRESSION: 1. Ultrasound guidance for a needle placement in a left upper extremity vein. 2. The left upper extremity vein is patent. RPTAT: QQ .Omar Moreira MD, MD Date Time Electronically viewed and signed by .Omar Moreira MD, MD on 06/15/2016 11:31 .R/
[2016-06-15] MEDS: SPIRONOLACTONE 25 MG TAB NGT SCH (13:02)
[2016-06-15] MEDS: FUROSEMIDE 20 MG TAB GTB SCH (13:02)
--- NOTE | 2016-06-15 13:17 | CONS ---
Date/Time of Note Date/Time of Note DATE: 06/15/16 TIME: 13:12 Assessment/Plan Assessment/Plan Chief Complaint/Hosp Course Impression: 1. Hematemesis/GI bleeding: stable. - 05/17/2016 EGD: Multiple esophageal ulcers, with no evidence of bleeding. Residual esophageal varices, one of the varices with stigmata of recent bleeding. Post-endoscopic variceal ligation x3. No additional potential sources of bleeding identified. - 05/09/2016 EGD: Grade IV/IV esophageal varices with stigmata of recent bleeding "white plug."Post-endoscopic variceal ligation x4. 2. Alcoholic cirrhosis 3. Ascites 4. Encephalopathy 5. History of EtOH abuse 6. Dysphagia, status post EGD plus PEG Recommendations: 1. transfuse PRN hgb less than 8 2. Recommend Peptamen 1.5 @ 20mL/hr increase by 10mL every 8hr to 35mL/hr. per nutrition 3. paracentesis PRN distention. Please send cell count if paracentesis is done to r/o SBP 4. Continue lactulose 5. Continue other supportive care per primary and other consultants. Problems: Consultation Date/Type/Reason Admit Date/Time May 07, 2016 at 14:39 Initial Consult Date 05/20/16 Type of Consultation: Gastroenterology Referring Provider: KASH OLVERA 24 HR Interval Summary Free Text/Dictation tolerates tube feeds, no n/v. Exam/Review of Systems Vital Signs Vitals Vital Signs Date Time Temp Pulse Resp B/P Pulse Ox O2 Delivery O2 Flow Rate FiO2 06/15/16 10:14 101 22 96 21 06/15/16 07:20 98.3 112/75 06/15/16 05:51 Nasal Cannula 2.0 Intake and Output 06/14/16 06/14/16 06/15/16 15:00 23:00 07:00 Intake Total 670 ml 800 ml Balance 670 ml 800 ml Exam Head: atraumatic, normocephalic Eyes: EOMI, nl conjunctiva, nl lids, nl sclera ENMT: mucosa pink and moist, nl external ears & nose, nl lips & teeth, nl nasal mucosa & septum Neck: non-tender, supple Respiratory: clear to auscultation, normal air movement Cardiovascular: nl pulses, regular rate and rhythm Gastrointestinal: bowel sounds, non-tender, other (GT c/d/i), soft Results Result Diagram: 06/14/16 1005 06/14/16 1005 Results 24 hrs Laboratory Tests Test 06/14/16 17:26 06/15/16 05:26 06/15/16 11:15 Bedside Glucose 95 105 113 Medications Medications Current Medications Ondansetron HCl (Zofran Inj) 4 mg Q6H PRN IV NAUSEA AND/OR VOMITING; Start 05/07/16 at 19:30 Morphine Sulfate (morphine) 2 mg Q4H PRN IV SEVERE PAIN LEVEL 7-10 Last administered on 05/23/16at 04:03; Admin Dose 2 MG; Start 05/07/16 at 19:30 Docusate Sodium (Colace) 100 mg Q12H PRN PO CONSTIPATION; Start 05/07/16 at 19: 30 IV Flush (NS 10 ml) 10 ml PRN PRN IV IV PROTOCOL; Start 05/17/16 at 12:00 Diagnostic Test (Pha) (Accucheck) 1 ea Q6 XX Last administered on 06/15/16 05: 31; Admin Dose 1 EA; Start 05/28/16 at 12:00 Lorazepam (Ativan) 1 mg Q8 PRN IV AGITATION/ANXIETY; Start 05/28/16 at 22:00 Pantoprazole (Protonix Iv) 40 mg DAILY@06 IV Last administered on 06/15/16 05: 31; Admin Dose 40 MG; Start 06/01/16 at 06:00 Clonidine HCl (Catapres-Tts 1 Patch) 1 patch Q7D TRANSDERM Last administered on 06/01/16at 13:53; Admin Dose 1 PATCH; Start 06/01/16 at 13:30 Acetaminophen (Tylenol Supp) 650 mg Q6H PRN [place] MILD PAIN/FEVER Last administered on 06/10/16 06:10; Admin Dose 650 MG; Start 06/08/16 at 16:30 Insulin Aspart (Novolog Insulin Pen) NOVOLOG *MILD* ALGORI... Q6 SC Last administered on 06/10/16 11:40; Admin Dose 1 UNIT; Start 06/08/16 at 18:00 Miscellaneous Information 1 ea NOTE XX ; Start 06/08/16 at 18:30 Glucose (Glutose) 15 gm Q15M PRN PO DECREASED GLUCOSE; Start 06/08/16 at 18:30 Glucose (Glutose) 22.5 gm Q15M PRN PO DECREASED GLUCOSE; Start 06/08/16 at 18:30 Dextrose (D50w Syringe) 25 ml Q15M PRN IV DECREASED GLUCOSE; Start 06/08/16 at 18:30 Dextrose (D50w Syringe) 50 ml Q15M PRN IV DECREASED GLUCOSE; Start 06/08/16 at 18:30 Glucagon (Glucagen) 1 mg Q15M PRN IM DECREASED GLUCOSE; Start 06/08/16 at 18:30 Glucose (Glutose) 15 gm Q15M PRN BUCCAL DECREASED GLUCOSE; Start 06/08/16 at 18: 30 Salmeterol Xinafoate/ Fluticasone (Advair 250/50 Diskus) 1 inh BID INH Last administered on 06/15/16 10:46; Admin Dose 1 INH; Start 06/10/16 at 18:30 Lactulose (Enulose) 10 gm Q12 PEG Last administered on 06/15/16 08:26; Admin Dose 10 GM; Start 06/13/16 at 12:00 Levothyroxine Sodium (Synthroid) 50 mcg DAILY@06 PEG Last administered on 05:31; Admin Dose 50 MCG; Start 06/13/16 at 12:00 Chlorhexidine Gluconate (Peridex) 15 ml BID MT Last administered on 06/15/16 08:22; Admin Dose 15 ML; Start 06/14/16 at 21:00 IV Flush (NS 10 ml) 10 ml PRN PRN IV PRN; Start 06/14/16 at 16:00 IV Flush 10 ml 10 ml PRN PRN IV IV PROTOCOL; Start 06/14/16 at 17:30 Vancomycin HCl (Vancocin) 250 ml @ 125 mls/hr Q12H IVPB Last administered on 03:12; Admin Dose 125 MLS/HR; Start 06/15/16 at 03:00 Spironolactone (Aldactone) 25 mg DAILY NGT Last administered on 06/15/16 13:02 ; Admin Dose 25 MG; Start 06/15/16 at 11:30 Furosemide (Lasix) 20 mg DAILY GTB Last administered on 06/15/16 13:02; Admin Dose 20 MG; Start 06/15/16 at 11:30 LINDSAY WALL MD Jun 15, 2016 13:17
[2016-06-15] MEDS: CLONIDINE 0.1 MG/24 HR PATCH TRANSDERM SCH (14:01)
[2016-06-15] MEDS ORDERED: LIDOCAINE 1% (MPF) 5 ML VIAL ONE (16:14)
--- NOTE | 2016-06-15 17:20 | RADRPT ---
PROCEDURE: Ultrasound guided paracentesis CLINICAL INDICATION: Ascites TECHNIQUE: The risks benefits and alternatives of the procedure were explained to the patient. In formed written consent was obtained. A time out was performed. The patient understood the risks be nefits and alternatives and wished to proceed with the procedure. The overlying skin of the right l ower quadrant of the abdomen was prepped and draped in the usual sterile fashion. Approximately 5 cc of Xylocaine was injected locally for pain control. Utilizing ultrasound guidance, a skinny 5-Fren ch Yueh catheter was placed into the peritoneal cavity without difficulty. The patient tolerated t he procedure well without complication. Approximately 3600 cc of thin yellow fluid was obtained. T he fluid was not sent to the lab for further analysis. COMPARISON: 05/31/2106 FINDINGS: Initial ultrasound demonstrated a moderate amount of simple appearing ascites. Successful ultrasou nd-guided paracentesis with a total of 3600 cc of thin yellow fluid aspirated. IMPRESSION: Successful ultrasound-guided paracentesis. RPTAT: QQ .Jose Lius Aguayo MD, MD Date Time Electronically viewed and signed by .Jose Luis Aguayo MD, on 06/15/2016 17:20 .A/
--- NOTE | 2016-06-15 19:40 | CONS ---
Date/Time of Note Date/Time of Note DATE: 06/15/16 TIME: 19:36 Assessment/Plan Assessment/Plan Chief Complaint/Hosp Course ID Assessment/Plan * 70 yo Frail appearing M, resting comfortably w/supplemental O2 via NC, VSS, No fevers, NAD * MICROBIOLOGY: Blood culture growing coagulase-negative staph species 06/08, , urine culture growing enterococcus species. * DIAGNOSTICS: Chest x-ray on 06/08/2016 showed mild pulmonary edema. * ANTIMICROBIALS: IV vancomycin. PHYSICAL EXAMINATION: GENERAL: This is a chronically ill-appearing, elderly man who is noncommunicative. He is in no distress. HEENT: Unremarkable except for temporal wasting NECK: Supple, trachea midline. CHEST: Rise symmetrical without dyspnea on supplemental O2 ABDOMEN: Deferred EXTREMITIES: Without cyanosis. ID ASSESSMENT: 1. Sepsis with coagulase-negative staphylococcus bacteremia status post peripherally inserted central catheter line discontinued. 2. Enterococcal urinary tract infection. 3. Urinary retention. 4. Status post pneumonia, respiratory failure. 5. History of alcohol abuse. 6. Homelessness. 7. Status post gastrointestinal bleed secondary to varices. The patient had esophagogastroduodenoscopy with banding. 8. Encephalopathy. CURRENT ABX: Vanco IV ID PLAN: Clinically stable, repeat bld cx still growing staph, continue abx, consider PICC, 2D ECHO if not done Problems: Consultation Date/Type/Reason Admit Date/Time May 07, 2016 at 14:39 Initial Consult Date 05/20/16 Type of Consultation: ID Referring Provider: KASH OLVERA Exam/Review of Systems Vital Signs Vitals Vital Signs Date Time Temp Pulse Resp B/P Pulse Ox O2 Delivery O2 Flow Rate FiO2 06/15/16 13:18 Nasal Cannula 2.0 06/15/16 10:14 101 22 96 21 06/15/16 07:20 98.3 112/75 Intake and Output 06/14/16 06/14/16 06/15/16 15:00 23:00 07:00 Intake Total 670 ml 800 ml Balance 670 ml 800 ml Results Result Diagram: 06/14/16 1005 06/14/16 1005 Results 24 hrs Laboratory Tests Test 06/15/16 05:26 06/15/16 11:15 06/15/16 16:58 Bedside Glucose 105 113 113 Medications Medications Current Medications Ondansetron HCl (Zofran Inj) 4 mg Q6H PRN IV NAUSEA AND/OR VOMITING; Start 05/07/16 at 19:30 Morphine Sulfate (morphine) 2 mg Q4H PRN IV SEVERE PAIN LEVEL 7-10 Last administered on 05/23/16at 04:03; Admin Dose 2 MG; Start 05/07/16 at 19:30 Docusate Sodium (Colace) 100 mg Q12H PRN PO CONSTIPATION; Start 05/07/16 at 19: 30 IV Flush (NS 10 ml) 10 ml PRN PRN IV IV PROTOCOL; Start 05/17/16 at 12:00 Diagnostic Test (Pha) (Accucheck) 1 ea Q6 XX Last administered on 06/15/16 05: 31; Admin Dose 1 EA; Start 05/28/16 at 12:00 Lorazepam (Ativan) 1 mg Q8 PRN IV AGITATION/ANXIETY; Start 05/28/16 at 22:00 Pantoprazole (Protonix Iv) 40 mg DAILY@06 IV Last administered on 06/15/16 05: 31; Admin Dose 40 MG; Start 06/01/16 at 06:00 Clonidine HCl (Catapres-Tts 1 Patch) 1 patch Q7D TRANSDERM Last administered on 06/15/16 14:01; Admin Dose 1 PATCH; Start 06/01/16 at 13:30 Acetaminophen (Tylenol Supp) 650 mg Q6H PRN IN MILD PAIN/FEVER Last administered on 06/10/16 06:10; Admin Dose 650 MG; Start 06/08/16 at 16:30 Insulin Aspart (Novolog Insulin Pen) NOVOLOG *MILD* ALGORI... Q6 SC Last administered on 06/10/16 11:40; Admin Dose 1 UNIT; Start 06/08/16 at 18:00 Miscellaneous Information 1 ea NOTE XX ; Start 06/08/16 at 18:30 Glucose (Glutose) 15 gm Q15M PRN PO DECREASED GLUCOSE; Start 06/08/16 at 18:30 Glucose (Glutose) 22.5 gm Q15M PRN PO DECREASED GLUCOSE; Start 06/08/16 at 18:30 Dextrose (D50w Syringe) 25 ml Q15M PRN IV DECREASED GLUCOSE; Start 06/08/16 at 18:30 Dextrose (D50w Syringe) 50 ml Q15M PRN IV DECREASED GLUCOSE; Start 06/08/16 at 18:30 Glucagon (Glucagen) 1 mg Q15M PRN IM DECREASED GLUCOSE; Start 06/08/16 at 18:30 Glucose (Glutose) 15 gm Q15M PRN BUCCAL DECREASED GLUCOSE; Start 06/08/16 at 18: 30 Salmeterol Xinafoate/ Fluticasone (Advair 250/50 Diskus) 1 inh BID INH Last administered on 06/15/16 10:46; Admin Dose 1 INH; Start 06/10/16 at 18:30 Lactulose (Enulose) 10 gm Q12 PEG Last administered on 06/15/16 08:26; Admin Dose 10 GM; Start 06/13/16 at 12:00 Levothyroxine Sodium (Synthroid) 50 mcg DAILY@06 PEG Last administered on 05:31; Admin Dose 50 MCG; Start 06/13/16 at 12:00 Chlorhexidine Gluconate (Peridex) 15 ml BID MT Last administered on 06/15/16 08:22; Admin Dose 15 ML; Start 06/14/16 at 21:00 IV Flush (NS 10 ml) 10 ml PRN PRN IV PRN; Start 06/14/16 at 16:00 IV Flush 10 ml 10 ml PRN PRN IV IV PROTOCOL; Start 06/14/16 at 17:30 Vancomycin HCl (Vancocin) 250 ml @ 125 mls/hr Q12H IVPB Last administered on 14:16; Admin Dose 125 MLS/HR; Start 06/15/16 at 03:00 Spironolactone (Aldactone) 25 mg DAILY NGT Last administered on 06/15/16 13:02 ; Admin Dose 25 MG; Start 06/15/16 at 11:30 Furosemide (Lasix) 20 mg DAILY GTB Last administered on 06/15/16 13:02; Admin Dose 20 MG; Start 06/15/16 at 11:30 Miscellaneous Information (*Rx Drug Level Order Reminder*) VANCO TROUGH @ 1, 400 ON... ONCE ONCE XX ; Start 06/16/16 at 14:00; Stop 06/16/16 at 14:01 SO ÁLVAREZ NP Jun 15, 2016 19:40
[2016-06-15 19:47] VITALS: BP 103/62; RESP 16
[2016-06-15 20:00] VITALS: BP 103/62; PULSE 92; RESP 20
[2016-06-15] MEDS: ALBUTEROL/IPRATROPIUM (NEB) 3 ML AMP HHN SCH (20:34)
[2016-06-16] MEDS: VANCOMYCIN 1 GM in NS 250 ML IVPB SCH ×2 (03:39→15:03)
[2016-06-16] MEDS: PANTOPRAZOLE 40 MG INJ IV SCH (05:01)
[2016-06-16] MEDS: LEVOTHYROXINE 50 MCG TAB PEG SCH (05:01)
[2016-06-16] MEDS: DOCUSATE SODIUM 100 MG CAP PO PRN ×2 (05:01→21:45)
[2016-06-16] MEDS: INSULIN ASPART [NOVOLOG] 3 ML PEN SC SCH ×4 (05:22→23:21)
[2016-06-16] MEDS: ACCUCHECK XX SCH ×4 (05:23→23:22)
[2016-06-16 06:22] LABS: CREATININE 0.37 mg/dl (0.61-1.24)
[2016-06-16 07:39] VITALS: BP 110/62; RESP 16
--- NOTE | 2016-06-16 08:16 | CONS ---
Date/Time of Note Date/Time of Note DATE: 06/16/16 TIME: 08:14 Assessment/Plan Assessment/Plan Chief Complaint/Hosp Course Impression: 1. Hematemesis/GI bleeding: stable. - 05/17/2016 EGD: Multiple esophageal ulcers, with no evidence of bleeding. Residual esophageal varices, one of the varices with stigmata of recent bleeding. Post-endoscopic variceal ligation x3. No additional potential sources of bleeding identified. - 05/09/2016 EGD: Grade IV/IV esophageal varices with stigmata of recent bleeding "white plug."Post-endoscopic variceal ligation x4. 2. Alcoholic cirrhosis 3. Ascites 4. Encephalopathy 5. History of EtOH abuse 6. Dysphagia, status post EGD plus PEG Recommendations: 1. transfuse PRN hgb less than 8 2. Recommend Peptamen 1.5 @ goal rate of 35 cc/hr. Ok to change to different rate and type of tube feed per nutrition eval. 3. paracentesis PRN distention. Please send cell count if paracentesis is done to r/o SBP 4. Continue lactulose 5. Continue other supportive care per primary and other consultants. Problems: Consultation Date/Type/Reason Admit Date/Time May 07, 2016 at 14:39 Initial Consult Date 05/20/16 Type of Consultation: GI Referring Provider: KASH OLVERA 24 HR Interval Summary Free Text/Dictation No N/V, tolerates increased TF rate of 35 cc/hr. Constitutional: improved Exam/Review of Systems Vital Signs Vitals Vital Signs Date Time Temp Pulse Resp B/P Pulse Ox O2 Delivery O2 Flow Rate FiO2 06/16/16 07:39 97.9 95 16 110/62 97 06/16/16 06:05 2.0 06/15/16 20:34 Nasal Cannula 06/15/16 10:14 21 Intake and Output 06/15/16 06/15/16 06/16/16 15:00 23:00 07:00 Intake Total 780 ml 650 ml Balance 780 ml 650 ml Exam Head: atraumatic, normocephalic Eyes: EOMI, nl conjunctiva, nl lids, nl sclera ENMT: mucosa pink and moist, nl external ears & nose, nl lips & teeth, nl nasal mucosa & septum Neck: non-tender, supple Respiratory: clear to auscultation, normal air movement Cardiovascular: nl pulses, regular rate and rhythm Gastrointestinal: bowel sounds, non-tender, other (GT c/d/i), soft Results Result Diagram: 06/14/16 1005 06/16/16 0520 Results 24 hrs Laboratory Tests Test 06/15/16 11:15 06/15/16 16:58 06/15/16 23:39 06/16/16 05:05 Bedside Glucose 113 113 128 103 Test 06/16/16 05:20 Blood Urea Nitrogen 8 Creatinine 0.37 L Medications Medications Current Medications Ondansetron HCl (Zofran Inj) 4 mg Q6H PRN IV NAUSEA AND/OR VOMITING; Start 05/07/16 at 19:30 Morphine Sulfate (morphine) 2 mg Q4H PRN IV SEVERE PAIN LEVEL 7-10 Last administered on 05/23/16at 04:03; Admin Dose 2 MG; Start 05/07/16 at 19:30 Docusate Sodium (Colace) 100 mg Q12H PRN PO CONSTIPATION Last administered on 05:01; Admin Dose 100 MG; Start 05/07/16 at 19:30 IV Flush (NS 10 ml) 10 ml PRN PRN IV IV PROTOCOL; Start 05/17/16 at 12:00 Diagnostic Test (Pha) (Accucheck) 1 ea Q6 XX Last administered on 06/15/16 05: 31; Admin Dose 1 EA; Start 05/28/16 at 12:00 Lorazepam (Ativan) 1 mg Q8 PRN IV AGITATION/ANXIETY; Start 05/28/16 at 22:00 Pantoprazole (Protonix Iv) 40 mg DAILY@06 IV Last administered on 06/16/16 05: 01; Admin Dose 40 MG; Start 06/01/16 at 06:00 Clonidine HCl (Catapres-Tts 1 Patch) 1 patch Q7D TRANSDERM Last administered on 06/15/16 14:01; Admin Dose 1 PATCH; Start 06/01/16 at 13:30 Acetaminophen (Tylenol Supp) 650 mg Q6H PRN [place] MILD PAIN/FEVER Last administered on 06/10/16 06:10; Admin Dose 650 MG; Start 06/08/16 at 16:30 Insulin Aspart (Novolog Insulin Pen) NOVOLOG *MILD* ALGORI... Q6 SC Last administered on 06/10/16 11:40; Admin Dose 1 UNIT; Start 06/08/16 at 18:00 Miscellaneous Information 1 ea NOTE XX ; Start 06/08/16 at 18:30 Glucose (Glutose) 15 gm Q15M PRN PO DECREASED GLUCOSE; Start 06/08/16 at 18:30 Glucose (Glutose) 22.5 gm Q15M PRN PO DECREASED GLUCOSE; Start 06/08/16 at 18:30 Dextrose (D50w Syringe) 25 ml Q15M PRN IV DECREASED GLUCOSE; Start 06/08/16 at 18:30 Dextrose (D50w Syringe) 50 ml Q15M PRN IV DECREASED GLUCOSE; Start 06/08/16 at 18:30 Glucagon (Glucagen) 1 mg Q15M PRN IM DECREASED GLUCOSE; Start 06/08/16 at 18:30 Glucose (Glutose) 15 gm Q15M PRN BUCCAL DECREASED GLUCOSE; Start 06/08/16 at 18: 30 Salmeterol Xinafoate/ Fluticasone (Advair 250/50 Diskus) 1 inh BID INH Last administered on 06/15/16 23:41; Admin Dose 1 INH; Start 06/10/16 at 18:30 Lactulose (Enulose) 10 gm Q12 PEG Last administered on 06/15/16 21:48; Admin Dose 10 GM; Start 06/13/16 at 12:00 Levothyroxine Sodium (Synthroid) 50 mcg DAILY@06 PEG Last administered on 05:01; Admin Dose 50 MCG; Start 06/13/16 at 12:00 Chlorhexidine Gluconate (Peridex) 15 ml BID MT Last administered on 06/15/16 21:48; Admin Dose 15 ML; Start 06/14/16 at 21:00 IV Flush (NS 10 ml) 10 ml PRN PRN IV PRN; Start 06/14/16 at 16:00 IV Flush 10 ml 10 ml PRN PRN IV IV PROTOCOL; Start 06/14/16 at 17:30 Vancomycin HCl (Vancocin) 250 ml @ 125 mls/hr Q12H IVPB Last administered on 03:39; Admin Dose 125 MLS/HR; Start 06/15/16 at 03:00 Spironolactone (Aldactone) 25 mg DAILY NGT Last administered on 06/15/16 13:02 ; Admin Dose 25 MG; Start 06/15/16 at 11:30 Furosemide (Lasix) 20 mg DAILY GTB Last administered on 06/15/16 13:02; Admin Dose 20 MG; Start 06/15/16 at 11:30 Miscellaneous Information (*Rx Drug Level Order Reminder*) VANCO TROUGH @ 1, 400 ON... ONCE ONCE XX ; Start 06/16/16 at 14:00; Stop 06/16/16 at 14:01 LINDSAY WALL MD Jun 16, 2016 08:16
[2016-06-16] MEDS: SALMETEROL/FLUTICASONE 250/50 INHA INH SCH ×2 (08:19→21:41)
[2016-06-16] MEDS: LACTULOSE 30ML CUP PEG SCH ×2 (08:21→21:43)
[2016-06-16] MEDS: SPIRONOLACTONE 25 MG TAB NGT SCH (08:21)
[2016-06-16] MEDS: FUROSEMIDE 20 MG TAB GTB SCH (08:22)
[2016-06-16] MEDS: CHLORHEXIDINE GLUCONATE 15 ML UD CUP MT SCH ×2 (08:22→21:00)
[2016-06-16] MEDS: morphine 2 MG INJ IV PRN (08:57)
[2016-06-16] MEDS: ALBUTEROL/IPRATROPIUM (NEB) 3 ML AMP HHN SCH ×3 (09:10→19:28)
--- NOTE | 2016-06-16 14:39 | PN ---
Date/Time of Note Date/Time of Note DATE: 06/16/16 TIME: 14:36 Assessment/Plan VTE Prophylaxis VTE Prophylaxis Intervention: other VTE Contraindication Reason: bleeding Lines/Catheters IV Catheter Type (from Nrsg): PICC Line Central line still needed: Yes Urinary Cath still in place: No Assessment/Plan Assessment/Plan 70 M homeless alcoholic who had originally come in with GI bleed 2/2 varices and has had a prolonged and complicated hospitalization now managed as follows: 1. Sepsis: resolved s/p line holiday / PICC line re-inserted / ID managing abx, appreciate input 2. Coagulase +staph bacteremia: Repeat blood cultures and urine culture negative / f/u ID recs 3. Enterococcus UTI: abx per ID 4. GI bleed : s/p EGD x 2 for bleed on this admission with findings of esophageal varices s/p banding on both studies closely monitor hgb/ GI following / appreciate input 5. Encephalopathy + Dysphagia Patient's mental status has improved considerably since early admission with the use antipsychotics; He is now oriented x4 but very lethargic, all antipsychotics held d/t severe lethargy 6. S/p Resp failure + ventilator dependence now extubated with residual rhonchi and stridor Continue scheduled bronchodilator therapy / inhaled steroids / continue PRN O2 / gentle diuresis 7. Alcoholism with Alcoholic liver cirrhosis causing #5 + coagulopathy Last paracentesis 06/14/16/ removed 3.6L / Continue lactulose / monitor coag profile / intervene PRN 8. Acute on chronic anemia 2/2 Blood loss +#7 +FTT see above 9. Homelessness: CM working on SNF placement 10. Newly diagnosed Hypothyroidism- on Levothyroxine 11. HTN: controlled on clonidine patch Dispo Continue PEG feeds / paracentesis done 06/14/16. 3.6L removed Continue supportive care Placement pending. Serial lab monitoring Further evaluation and treatment will be based on clinical course Full discussion with care team done. All questions Answered Please also see orders.. Subjective 24 Hr Interval Summary Free Text/Dictation Patient seen and examined. essentially remains unchanged Exam/Review of Systems Vital Signs Vitals Vital Signs Date Time Temp Pulse Resp B/P Pulse Ox O2 Delivery O2 Flow Rate FiO2 06/16/16 14:10 Nasal Cannula 2.0 06/16/16 09:12 90 18 93 06/16/16 07:39 97.9 110/62 06/15/16 10:14 21 Intake and Output 06/15/16 06/15/16 06/16/16 15:00 23:00 07:00 Intake Total 780 ml 650 ml Balance 780 ml 650 ml Exam Constitutional: alert, oriented, No distress Head: normocephalic Eyes: icteric ENMT: other (?improved oral hygiene) Respiratory: diminished breath sounds R>>L with R sided wheezing Cardiovascular: regular rate and rhythm, No murmurs/extra sounds Gastrointestinal: ascites (?), bowel sounds, distended, soft Musculoskeletal: other (severe msc wasting) Neurological: lethargic Results Result Diagram: 06/14/16 1005 06/16/16 0520 Results 24 hrs Laboratory Tests Test 06/15/16 16:58 06/15/16 23:39 06/16/16 05:05 06/16/16 05:20 Bedside Glucose 113 128 103 Blood Urea Nitrogen 8 Creatinine 0.37 L Test 06/16/16 11:06 Bedside Glucose 98 Medications Medications Current Medications Ondansetron HCl (Zofran Inj) 4 mg Q6H PRN IV NAUSEA AND/OR VOMITING; Start 05/07/16 at 19:30 Morphine Sulfate (morphine) 2 mg Q4H PRN IV SEVERE PAIN LEVEL 7-10 Last administered on 06/16/16 08:57; Admin Dose 2 MG; Start 05/07/16 at 19:30 Docusate Sodium (Colace) 100 mg Q12H PRN PO CONSTIPATION Last administered on 05:01; Admin Dose 100 MG; Start 05/07/16 at 19:30 IV Flush (NS 10 ml) 10 ml PRN PRN IV IV PROTOCOL; Start 05/17/16 at 12:00 Diagnostic Test (Pha) (Accucheck) 1 ea Q6 XX Last administered on 06/15/16 05: 31; Admin Dose 1 EA; Start 05/28/16 at 12:00 Lorazepam (Ativan) 1 mg Q8 PRN IV AGITATION/ANXIETY; Start 05/28/16 at 22:00 Pantoprazole (Protonix Iv) 40 mg DAILY@06 IV Last administered on 06/16/16 05: 01; Admin Dose 40 MG; Start 06/01/16 at 06:00 Clonidine HCl (Catapres-Tts 1 Patch) 1 patch Q7D TRANSDERM Last administered on 06/15/16 14:01; Admin Dose 1 PATCH; Start 06/01/16 at 13:30 Acetaminophen (Tylenol Supp) 650 mg Q6H PRN [place] MILD PAIN/FEVER Last administered on 06/10/16 06:10; Admin Dose 650 MG; Start 06/08/16 at 16:30 Insulin Aspart (Novolog Insulin Pen) NOVOLOG *MILD* ALGORI... Q6 SC Last administered on 06/10/16 11:40; Admin Dose 1 UNIT; Start 06/08/16 at 18:00 Miscellaneous Information 1 ea NOTE XX ; Start 06/08/16 at 18:30 Glucose (Glutose) 15 gm Q15M PRN PO DECREASED GLUCOSE; Start 06/08/16 at 18:30 Glucose (Glutose) 22.5 gm Q15M PRN PO DECREASED GLUCOSE; Start 06/08/16 at 18:30 Dextrose (D50w Syringe) 25 ml Q15M PRN IV DECREASED GLUCOSE; Start 06/08/16 at 18:30 Dextrose (D50w Syringe) 50 ml Q15M PRN IV DECREASED GLUCOSE; Start 06/08/16 at 18:30 Glucagon (Glucagen) 1 mg Q15M PRN IM DECREASED GLUCOSE; Start 06/08/16 at 18:30 Glucose (Glutose) 15 gm Q15M PRN BUCCAL DECREASED GLUCOSE; Start 06/08/16 at 18: 30 Salmeterol Xinafoate/ Fluticasone (Advair 250/50 Diskus) 1 inh BID INH Last administered on 06/16/16 08:19; Admin Dose 1 INH; Start 06/10/16 at 18:30 Lactulose (Enulose) 10 gm Q12 PEG Last administered on 06/16/16 08:21; Admin Dose 10 GM; Start 06/13/16 at 12:00 Levothyroxine Sodium (Synthroid) 50 mcg DAILY@06 PEG Last administered on 05:01; Admin Dose 50 MCG; Start 06/13/16 at 12:00 Chlorhexidine Gluconate (Peridex) 15 ml BID MT Last administered on 06/16/16 08:22; Admin Dose 15 ML; Start 06/14/16 at 21:00 IV Flush (NS 10 ml) 10 ml PRN PRN IV PRN; Start 06/14/16 at 16:00 IV Flush 10 ml 10 ml PRN PRN IV IV PROTOCOL; Start 06/14/16 at 17:30 Vancomycin HCl (Vancocin) 250 ml @ 125 mls/hr Q12H IVPB Last administered on 03:39; Admin Dose 125 MLS/HR; Start 06/15/16 at 03:00 Spironolactone (Aldactone) 25 mg DAILY NGT Last administered on 06/16/16 08:21 ; Admin Dose 25 MG; Start 06/15/16 at 11:30 Furosemide (Lasix) 20 mg DAILY GTB Last administered on 06/16/16 08:22; Admin Dose 20 MG; Start 06/15/16 at 11:30 KASH OLVERA Jun 16, 2016 14:39
--- NOTE | 2016-06-16 17:36 | CONS ---
Date/Time of Note Date/Time of Note DATE: 06/16/16 TIME: 17:27 Assessment/Plan Assessment/Plan Chief Complaint/Hosp Course ID Assessment/Plan * 70 yo Frail appearing M, resting comfortably w/supplemental O2 via NC * WBC slighty up yet still WNL, No fevers, VSS * MICROBIOLOGY: Blood culture growing coagulase-negative staph species 06/08, , urine culture growing enterococcus species. * s/p Para 3.+ L removed 06/14/16 * - 05/17/2016 EGD: Multiple esophageal ulcers, with no evidence of bleeding. Residual esophageal varices, one of the varices with stigmata of recent bleeding. Post-endoscopic variceal ligation x3. No additional potential sources of bleeding identified. * 05/09/2016 EGD: Grade IV/IV esophageal varices with stigmata of recent bleeding "white plug."Post-endoscopic variceal ligation x4. PHYSICAL EXAMINATION: GENERAL: This is a chronically ill-appearing, elderly man who is noncommunicative. He is in no distress. HEENT: Unremarkable except for temporal wasting NECK: Supple, trachea midline. CHEST: Rise symmetrical without dyspnea on supplemental O2 ABDOMEN: Deferred EXTREMITIES: Without cyanosis. ID ASSESSMENT: 70 yo homeless M w/PMHx ETOH, ETOH Cirrhosis admit with: 1. Sepsis with coagulase-negative staphylococcus bacteremia-> PICC line removed 2. Enterococcal urinary tract infection. 3. Urinary retention. 4. Status post pneumonia, respiratory failure= 05/26/16 RESPIRATORY CULTURE Final Organism 1 STAPHYLOCOCCUS AUREUS Organism 2 KLEBSIELLA OXYTOCA 5. Presumptive spontaneous bacterial peritonitis always must be considered in setting Ascites/Esophageal Varices due to transmigration of bacteria * Ascites s/p Para 06/14/16 7. Status post gastrointestinal bleed secondary to varices. The patient had esophagogastroduodenoscopy with banding. * - 05/17/2016 EGD: Multiple esophageal ulcers, with no evidence of bleeding. Residual esophageal varices, one of the varices with stigmata of recent bleeding. Post-endoscopic variceal ligation x3. No additional potential sources of bleeding identified. * - 05/09/2016 EGD: Grade IV/IV esophageal varices with stigmata of recent bleeding "white plug."Post-endoscopic variceal ligation x4. 8. Encephalopathy. CURRENT ABX: Vanco IV #8 ID PLAN: Continue Vanco IV for total 14 days => Today is day # 814 . Problems: Consultation Date/Type/Reason Admit Date/Time May 07, 2016 at 14:39 Initial Consult Date 05/20/16 Type of Consultation: ID Referring Provider: KASH OLVERA Exam/Review of Systems Vital Signs Vitals Vital Signs Date Time Temp Pulse Resp B/P Pulse Ox O2 Delivery O2 Flow Rate FiO2 06/16/16 14:41 102 18 9 Nasal Cannula 2.0 06/16/16 07:39 97.9 110/62 06/15/16 10:14 21 Intake and Output 06/15/16 06/15/16 06/16/16 15:00 23:00 07:00 Intake Total 780 ml 650 ml Balance 780 ml 650 ml Results Result Diagram: 06/14/16 1005 06/16/16 0520 Results 24 hrs Laboratory Tests Test 06/15/16 23:39 06/16/16 05:05 06/16/16 05:20 06/16/16 11:06 Bedside Glucose 128 103 98 Blood Urea Nitrogen 8 Creatinine 0.37 L Test 06/16/16 13:58 06/16/16 16:16 Vancomycin Level Trough 11.7 Bedside Glucose 123 Medications Medications Current Medications Ondansetron HCl (Zofran Inj) 4 mg Q6H PRN IV NAUSEA AND/OR VOMITING; Start 05/07/16 at 19:30 Morphine Sulfate (morphine) 2 mg Q4H PRN IV SEVERE PAIN LEVEL 7-10 Last administered on 06/16/16 08:57; Admin Dose 2 MG; Start 05/07/16 at 19:30 Docusate Sodium (Colace) 100 mg Q12H PRN PO CONSTIPATION Last administered on 05:01; Admin Dose 100 MG; Start 05/07/16 at 19:30 IV Flush (NS 10 ml) 10 ml PRN PRN IV IV PROTOCOL; Start 05/17/16 at 12:00 Diagnostic Test (Pha) (Accucheck) 1 ea Q6 XX Last administered on 06/15/16 05: 31; Admin Dose 1 EA; Start 05/28/16 at 12:00 Lorazepam (Ativan) 1 mg Q8 PRN IV AGITATION/ANXIETY; Start 05/28/16 at 22:00 Pantoprazole (Protonix Iv) 40 mg DAILY@06 IV Last administered on 06/16/16 05: 01; Admin Dose 40 MG; Start 06/01/16 at 06:00 Clonidine HCl (Catapres-Tts 1 Patch) 1 patch Q7D TRANSDERM Last administered on 06/15/16 14:01; Admin Dose 1 PATCH; Start 06/01/16 at 13:30 Acetaminophen (Tylenol Supp) 650 mg Q6H PRN [place] MILD PAIN/FEVER Last administered on 06/10/16 06:10; Admin Dose 650 MG; Start 06/08/16 at 16:30 Insulin Aspart (Novolog Insulin Pen) NOVOLOG *MILD* ALGORI... Q6 SC Last administered on 06/10/16 11:40; Admin Dose 1 UNIT; Start 06/08/16 at 18:00 Miscellaneous Information 1 ea NOTE XX ; Start 06/08/16 at 18:30 Glucose (Glutose) 15 gm Q15M PRN PO DECREASED GLUCOSE; Start 06/08/16 at 18:30 Glucose (Glutose) 22.5 gm Q15M PRN PO DECREASED GLUCOSE; Start 06/08/16 at 18:30 Dextrose (D50w Syringe) 25 ml Q15M PRN IV DECREASED GLUCOSE; Start 06/08/16 at 18:30 Dextrose (D50w Syringe) 50 ml Q15M PRN IV DECREASED GLUCOSE; Start 06/08/16 at 18:30 Glucagon (Glucagen) 1 mg Q15M PRN IM DECREASED GLUCOSE; Start 06/08/16 at 18:30 Glucose (Glutose) 15 gm Q15M PRN BUCCAL DECREASED GLUCOSE; Start 06/08/16 at 18: 30 Salmeterol Xinafoate/ Fluticasone (Advair 250/50 Diskus) 1 inh BID INH Last administered on 06/16/16 08:19; Admin Dose 1 INH; Start 06/10/16 at 18:30 Lactulose (Enulose) 10 gm Q12 PEG Last administered on 06/16/16 08:21; Admin Dose 10 GM; Start 06/13/16 at 12:00 Levothyroxine Sodium (Synthroid) 50 mcg DAILY@06 PEG Last administered on 05:01; Admin Dose 50 MCG; Start 06/13/16 at 12:00 Chlorhexidine Gluconate (Peridex) 15 ml BID MT Last administered on 06/16/16 08:22; Admin Dose 15 ML; Start 06/14/16 at 21:00 IV Flush (NS 10 ml) 10 ml PRN PRN IV PRN; Start 06/14/16 at 16:00 IV Flush 10 ml 10 ml PRN PRN IV IV PROTOCOL; Start 06/14/16 at 17:30 Vancomycin HCl (Vancocin) 250 ml @ 125 mls/hr Q12H IVPB Last administered on 15:03; Admin Dose 125 MLS/HR; Start 06/15/16 at 03:00 Spironolactone (Aldactone) 25 mg DAILY NGT Last administered on 06/16/16 08:21 ; Admin Dose 25 MG; Start 06/15/16 at 11:30 Furosemide (Lasix) 20 mg DAILY GTB Last administered on 06/16/16 08:22; Admin Dose 20 MG; Start 06/15/16 at 11:30 SO ÁLVAREZ NP Jun 16, 2016 17:35
[2016-06-16 20:00] VITALS: BP 121/73; PULSE 103; RESP 18
[2016-06-16 20:28] VITALS: BP 121/73; RESP 18
[2016-06-17] VITALS (15 sets, daily range): BP systolic 114–177; BP diastolic 67–97; PULSE 113–144; RESP 22–47
[2016-06-17] MEDS ORDERED: VANCOMYCIN 1.25 GM in SOD CHLORIDE 0.9% 250 ML IVPB SCH (03:00)
[2016-06-17] MEDS: VANCOMYCIN 1 GM in NS 250 ML IVPB SCH ×2 (04:32→16:32)
[2016-06-17] MEDS: ACCUCHECK XX SCH ×4 (06:00→23:13)
[2016-06-17] MEDS: INSULIN ASPART [NOVOLOG] 3 ML PEN SC SCH ×4 (06:00→23:13)
[2016-06-17] MEDS: PANTOPRAZOLE 40 MG INJ IV SCH (06:38)
[2016-06-17] MEDS: LEVOTHYROXINE 50 MCG TAB PEG SCH (06:38)
--- NOTE | 2016-06-17 07:11 | CONS ---
Date/Time of Note Date/Time of Note DATE: 06/17/16 TIME: 07:08 Assessment/Plan Assessment/Plan Chief Complaint/Hosp Course Impression: 1. Hematemesis/GI bleeding: stable. - 05/17/2016 EGD: Multiple esophageal ulcers, with no evidence of bleeding. Residual esophageal varices, one of the varices with stigmata of recent bleeding. Post-endoscopic variceal ligation x3. No additional potential sources of bleeding identified. - 05/09/2016 EGD: Grade IV/IV esophageal varices with stigmata of recent bleeding "white plug."Post-endoscopic variceal ligation x4. 2. Alcoholic cirrhosis 3. Ascites 4. Encephalopathy 5. History of EtOH abuse 6. Dysphagia, status post EGD plus PEG Recommendations: 1. transfuse PRN hgb less than 8 2. Recommend Peptamen 1.5 @ goal rate of 35 cc/hr. Ok to change to different rate and type of tube feed per nutrition eval. 3. paracentesis PRN distention. Please send cell count if paracentesis is done to r/o SBP 4. Continue lactulose 5. Continue other supportive care per primary and other consultants. 6. will sign off now. Pls call for any questions. Problems: Consultation Date/Type/Reason Admit Date/Time May 07, 2016 at 14:39 Initial Consult Date 05/20/16 Type of Consultation: GI Referring Provider: KASH OLVERA 24 HR Interval Summary Free Text/Dictation No N/V, tolerates TF rate of 35 cc/hr. Exam/Review of Systems Vital Signs Vitals Vital Signs Date Time Temp Pulse Resp B/P Pulse Ox O2 Delivery O2 Flow Rate FiO2 06/16/16 20:28 99.4 103 18 121/73 97 06/16/16 20:00 Room Air 06/16/16 19:28 21 06/16/16 14:41 2.0 Intake and Output 06/16/16 06/16/16 06/17/16 15:00 23:00 07:00 Intake Total 1030 ml Balance 1030 ml Exam Head: atraumatic, normocephalic Eyes: EOMI, nl conjunctiva, nl lids, nl sclera ENMT: mucosa pink and moist, nl external ears & nose, nl lips & teeth, nl nasal mucosa & septum Neck: non-tender, supple Respiratory: clear to auscultation, normal air movement Cardiovascular: nl pulses, regular rate and rhythm Gastrointestinal: bowel sounds, non-tender, other (GT c/d/i), soft Results Result Diagram: 06/14/16 1005 06/16/16 0520 Results 24 hrs Laboratory Tests Test 06/16/16 11:06 06/16/16 13:58 06/16/16 16:16 06/16/16 23:16 Bedside Glucose 98 123 141 Vancomycin Level Trough 11.7 Test 06/17/16 06:25 Bedside Glucose 169 Medications Medications Current Medications Ondansetron HCl (Zofran Inj) 4 mg Q6H PRN IV NAUSEA AND/OR VOMITING; Start 05/07/16 at 19:30 Morphine Sulfate (morphine) 2 mg Q4H PRN IV SEVERE PAIN LEVEL 7-10 Last administered on 06/16/16 08:57; Admin Dose 2 MG; Start 05/07/16 at 19:30 Docusate Sodium (Colace) 100 mg Q12H PRN PO CONSTIPATION Last administered on 21:45; Admin Dose 100 MG; Start 05/07/16 at 19:30 IV Flush (NS 10 ml) 10 ml PRN PRN IV IV PROTOCOL; Start 05/17/16 at 12:00 Diagnostic Test (Pha) (Accucheck) 1 ea Q6 XX Last administered on 06/15/16 05: 31; Admin Dose 1 EA; Start 05/28/16 at 12:00 Lorazepam (Ativan) 1 mg Q8 PRN IV AGITATION/ANXIETY; Start 05/28/16 at 22:00 Pantoprazole (Protonix Iv) 40 mg DAILY@06 IV Last administered on 06/17/16 06: 38; Admin Dose 40 MG; Start 06/01/16 at 06:00 Clonidine HCl (Catapres-Tts 1 Patch) 1 patch Q7D TRANSDERM Last administered on 06/15/16 14:01; Admin Dose 1 PATCH; Start 06/01/16 at 13:30 Acetaminophen (Tylenol Supp) 650 mg Q6H PRN [place] MILD PAIN/FEVER Last administered on 06/10/16 06:10; Admin Dose 650 MG; Start 06/08/16 at 16:30 Insulin Aspart (Novolog Insulin Pen) NOVOLOG *MILD* ALGORI... Q6 SC Last administered on 06/16/16 23:21; Admin Dose 1 UNIT; Start 06/08/16 at 18:00 Miscellaneous Information 1 ea NOTE XX ; Start 06/08/16 at 18:30 Glucose (Glutose) 15 gm Q15M PRN PO DECREASED GLUCOSE; Start 06/08/16 at 18:30 Glucose (Glutose) 22.5 gm Q15M PRN PO DECREASED GLUCOSE; Start 06/08/16 at 18:30 Dextrose (D50w Syringe) 25 ml Q15M PRN IV DECREASED GLUCOSE; Start 06/08/16 at 18:30 Dextrose (D50w Syringe) 50 ml Q15M PRN IV DECREASED GLUCOSE; Start 06/08/16 at 18:30 Glucagon (Glucagen) 1 mg Q15M PRN IM DECREASED GLUCOSE; Start 06/08/16 at 18:30 Glucose (Glutose) 15 gm Q15M PRN BUCCAL DECREASED GLUCOSE; Start 06/08/16 at 18: 30 Salmeterol Xinafoate/ Fluticasone (Advair 250/50 Diskus) 1 inh BID INH Last administered on 06/16/16 21:41; Admin Dose 1 INH; Start 06/10/16 at 18:30 Lactulose (Enulose) 10 gm Q12 PEG Last administered on 06/16/16 21:43; Admin Dose 10 GM; Start 06/13/16 at 12:00 Levothyroxine Sodium (Synthroid) 50 mcg DAILY@06 PEG Last administered on 06:38; Admin Dose 50 MCG; Start 06/13/16 at 12:00 Chlorhexidine Gluconate (Peridex) 15 ml BID MT Last administered on 06/16/16 08:22; Admin Dose 15 ML; Start 06/14/16 at 21:00 IV Flush (NS 10 ml) 10 ml PRN PRN IV PRN; Start 06/14/16 at 16:00 IV Flush 10 ml 10 ml PRN PRN IV IV PROTOCOL; Start 06/14/16 at 17:30 Vancomycin HCl (Vancocin) 250 ml @ 125 mls/hr Q12H IVPB Last administered on 04:32; Admin Dose 125 MLS/HR; Start 06/15/16 at 03:00 Spironolactone (Aldactone) 25 mg DAILY NGT Last administered on 06/16/16 08:21 ; Admin Dose 25 MG; Start 06/15/16 at 11:30 Furosemide (Lasix) 20 mg DAILY GTB Last administered on 06/16/16 08:22; Admin Dose 20 MG; Start 06/15/16 at 11:30 LINDSAY WALL MD Jun 17, 2016 07:11
[2016-06-17] MEDS: ACETAMINOPHEN 650 MG SUPP PR PRN (07:56)
[2016-06-17] MEDS: ALBUTEROL/IPRATROPIUM (NEB) 3 ML AMP HHN SCH ×3 (08:00→20:00)
[2016-06-17] MEDS: SALMETEROL/FLUTICASONE 250/50 INHA INH SCH ×2 (09:42→21:00)
[2016-06-17] MEDS: FUROSEMIDE 20 MG TAB GTB SCH (09:42)
[2016-06-17] MEDS: LACTULOSE 30ML CUP PEG SCH ×3 (09:42→23:13)
[2016-06-17] MEDS: SPIRONOLACTONE 25 MG TAB NGT SCH (09:42)
[2016-06-17] MEDS: CHLORHEXIDINE GLUCONATE 15 ML UD CUP MT SCH ×2 (09:43→21:00)
[2016-06-17 09:53] LABS: HEMOGLOBIN 9.8 g/dl (14.0-18.0); MEAN CORPUSCULAR HEMOGLOBIN 28.2 pg (29.0-33.0); MEAN CORPUSCULAR HGB CONC 32.6 g/dl (32.0-37.0); MEAN CORPUSCULAR VOLUME 86.5 fl (82.0-101.0); MEAN PLATELET VOLUME 8.8 fl (7.4-10.4); PLATELET COUNT 293 10^3/UL (140-440); RED BLOOD COUNT 3.47 10^6/ul (4.70-6.10); RED CELL DISTRIBUTION WIDTH 17.3 % (11.5-14.5); UNCORRECTED WBC 22.5 10^3/ul (4.8-10.8); WHITE BLOOD COUNT 22.5 10^3/ul (4.8-10.8)
[2016-06-17 09:55] LABS: CONDITION 1; LH ANALYZER COMMENTS 1; SUSPECT 1
[2016-06-17 09:58] LABS: ALBUMIN 2.5 g/dl (3.3-4.9); POTASSIUM 3.3 mmol/L (3.5-5.1)
[2016-06-17 10:00] LABS: CREATININE 0.45 mg/dl (0.61-1.24)
[2016-06-17 10:01] LABS: ALBUMIN/GLOBULIN RATIO 0.49; BILIRUBIN,INDIRECT 0.5 mg/dl (0-1.1); BILIRUBIN,TOTAL 0.5 mg/dl (0.2-1.3); CALCIUM 8.4 mg/dl (8.4-10.2); TOTAL PROTEIN 7.6 g/dl (6.1-8.1)
[2016-06-17 12:31] LABS: LYMPHOCYTES # 1.1 10^3/ul (0.8-2.9); NEUTROPHIL # 19.4 10^3/ul (1.6-7.5)
[2016-06-17 14:15] LABS: HEMATOCRIT 32.7 % (42.0-52.0); HEMOGLOBIN 10.4 g/dl (14.0-18.0); LYMPHOCYTES # 1.2 10^3/ul (0.8-2.9); LYMPHOCYTES % 5.8 % (15.0-51.0); MEAN CORPUSCULAR HEMOGLOBIN 28.1 pg (29.0-33.0); MEAN CORPUSCULAR HGB CONC 31.9 g/dl (32.0-37.0); MEAN CORPUSCULAR VOLUME 88.1 fl (82.0-101.0); MEAN PLATELET VOLUME 8.2 fl (7.4-10.4); MONOCYTE # 0.7 10^3/ul (0.3-0.9); MONOCYTES % 3.4 % (0.0-11.0); NEUTROPHIL # 18.7 10^3/ul (1.6-7.5); NEUTROPHILS % 90.8 % (39.0-77.0); PLATELET COUNT 286 10^3/UL (140-440); RED BLOOD COUNT 3.71 10^6/ul (4.70-6.10); RED CELL DISTRIBUTION WIDTH 17.2 % (11.5-14.5); UNCORRECTED WBC 20.6 10^3/ul (4.8-10.8); WHITE BLOOD COUNT 20.6 10^3/ul (4.8-10.8)
--- NOTE | 2016-06-17 14:15 | PN ---
Date/Time of Note Date/Time of Note DATE: 06/17/16 TIME: 14:08 Assessment/Plan VTE Prophylaxis VTE Prophylaxis Intervention: other VTE Contraindication Reason: bleeding Lines/Catheters IV Catheter Type (from Nrsg): PICC Line Central line still needed: Yes Urinary Cath still in place: No Assessment/Plan Chief Complaint/Hosp Course Assessment/Plan: 70 M homeless alcoholic who had originally come in with GI bleed 2/2 varices and has had a prolonged and complicated hospitalization now managed as follows: 1. Sepsis: resolved s/p line holiday / PICC line re-inserted / ID managing abx, appreciate input 2. Coagulase +staph bacteremia: Repeat blood cultures and urine culture negative / f/u ID recs 3. Enterococcus UTI: followed by ID team - Continue Vanco IV for total 14 days => Today is day # 9/ 4. GI bleed : s/p EGD x 2 for bleed on this admission with findings of esophageal varices s/p banding on both studies closely monitor hgb/ GI following / appreciate input 5. Encephalopathy + Dysphagia Patient's mental status has improved considerably since early admission with the use antipsychotics He is now oriented x4 but very lethargic, all antipsychotics held d/t severe lethargy 6. S/p Resp failure + ventilator dependence now extubated with residual rhonchi and stridor Continue scheduled bronchodilator therapy / inhaled steroids / continue PRN O2 / gentle diuresis 7. Alcoholism with Alcoholic liver cirrhosis causing #5 + coagulopathy Last paracentesis 06/14/16/ removed 3.6L / Continue lactulose / monitor coag profile / intervene PRN 8. Acute on chronic anemia 2/2 Blood loss +#7 +FTT see above 9. Homelessness: CM working on SNF placement 10. Newly diagnosed Hypothyroidism- on Levothyroxine 11. HTN: controlled on clonidine patch Dispo Continue PEG feeds / paracentesis done 06/14/16 - 3.6L removed Continue supportive care Placement pending. Serial lab monitoring Further evaluation and treatment will be based on clinical course Full discussion with care team done. All questions Answered Please also see orders. Problems: Subjective 24 Hr Interval Summary Free Text/Dictation Pt had some chills this AM. Seen by GI team today. Exam/Review of Systems Vital Signs Vitals Vital Signs Date Time Temp Pulse Resp B/P Pulse Ox O2 Delivery O2 Flow Rate FiO2 1/16/17 13:49 99.6 117 23 126/72 93 Room Air 06/17/16 13:08 21 06/17/16 08:45 2.0 Intake and Output 06/16/16 06/16/16 06/17/16 15:00 23:00 07:00 Intake Total 1030 ml 700 ml Balance 1030 ml 700 ml Exam Constitutional: alert, oriented, No distress Head: normocephalic Eyes: icteric ENMT: other (?improved oral hygiene) Respiratory: slightly less diminished breath sounds Cardiovascular: regular rate and rhythm, No murmurs/extra sounds Gastrointestinal: ascites (?), bowel sounds, distended, soft Musculoskeletal: other (severe msc wasting) Neurological: lethargic Results Result Diagram: 06/17/16 0856 06/17/16 0856 Results 24 hrs Laboratory Tests Test 06/16/16 16:16 06/16/16 23:16 06/17/16 06:25 06/17/16 08:56 Bedside Glucose 123 141 169 Alanine Aminotransferase (ALT/SGPT) 54 Albumin 2.5 L Albumin/Globulin Ratio 0.49 Alkaline Phosphatase 219 H Ammonia 45 #H Anion Gap 13 Aspartate Amino Transf (AST/SGOT) 75 H Basophils # Basophils % Blood Morphology Comment Blood Urea Nitrogen 13 Calcium Level 8.4 Carbon Dioxide Level 24 Chloride Level 111 H Creatinine 0.45 L Direct Bilirubin 0.00 Eosinophils # Eosinophils % Globulin 5.10 H Glucose Level 143 Hematocrit 30.0 L Hemoglobin 9.8 L Indirect Bilirubin 0.5 Lymphocytes # 1.1 Lymphocytes % 5.0 L Mean Corpuscular Hemoglobin 28.2 L Mean Corpuscular Hemoglobin Concent 32.6 Mean Corpuscular Volume 86.5 Mean Platelet Volume 8.8 Monocytes # Monocytes % Neutrophils # 19.4 H Neutrophils % 86.0 H Nucleated Red Blood Cells # Nucleated Red Blood Cells % 0.0 Platelet Count 293 # Potassium Level 3.3 L Red Blood Count 3.47 L Red Cell Distribution Width 17.3 H Sodium Level 145 H Total Bilirubin 0.5 Total Protein 7.6 White Blood Count 22.5 #H Test 06/17/16 11:54 Bedside Glucose 136 Medications Medications Current Medications Ondansetron HCl (Zofran Inj) 4 mg Q6H PRN IV NAUSEA AND/OR VOMITING; Start 05/07/16 at 19:30 Morphine Sulfate (morphine) 2 mg Q4H PRN IV SEVERE PAIN LEVEL 7-10 Last administered on 06/16/16 08:57; Admin Dose 2 MG; Start 05/07/16 at 19:30 Docusate Sodium (Colace) 100 mg Q12H PRN PO CONSTIPATION Last administered on 21:45; Admin Dose 100 MG; Start 05/07/16 at 19:30 IV Flush (NS 10 ml) 10 ml PRN PRN IV IV PROTOCOL; Start 05/17/16 at 12:00 Diagnostic Test (Pha) (Accucheck) 1 ea Q6 XX Last administered on 06/15/16 05: 31; Admin Dose 1 EA; Start 05/28/16 at 12:00 Lorazepam (Ativan) 1 mg Q8 PRN IV AGITATION/ANXIETY; Start 05/28/16 at 22:00 Pantoprazole (Protonix Iv) 40 mg DAILY@06 IV Last administered on 06/17/16 06: 38; Admin Dose 40 MG; Start 06/01/16 at 06:00 Clonidine HCl (Catapres-Tts 1 Patch) 1 patch Q7D TRANSDERM Last administered on 06/15/16 14:01; Admin Dose 1 PATCH; Start 06/01/16 at 13:30 Acetaminophen (Tylenol Supp) 650 mg Q6H PRN [place] MILD PAIN/FEVER Last administered on 06/17/16 07:56; Admin Dose 650 MG; Start 06/08/16 at 16:30 Insulin Aspart (Novolog Insulin Pen) NOVOLOG *MILD* ALGORI... Q6 SC Last administered on 06/16/16 23:21; Admin Dose 1 UNIT; Start 06/08/16 at 18:00 Miscellaneous Information 1 ea NOTE XX ; Start 06/08/16 at 18:30 Glucose (Glutose) 15 gm Q15M PRN PO DECREASED GLUCOSE; Start 06/08/16 at 18:30 Glucose (Glutose) 22.5 gm Q15M PRN PO DECREASED GLUCOSE; Start 06/08/16 at 18:30 Dextrose (D50w Syringe) 25 ml Q15M PRN IV DECREASED GLUCOSE; Start 06/08/16 at 18:30 Dextrose (D50w Syringe) 50 ml Q15M PRN IV DECREASED GLUCOSE; Start 06/08/16 at 18:30 Glucagon (Glucagen) 1 mg Q15M PRN IM DECREASED GLUCOSE; Start 06/08/16 at 18:30 Glucose (Glutose) 15 gm Q15M PRN BUCCAL DECREASED GLUCOSE; Start 06/08/16 at 18: 30 Salmeterol Xinafoate/ Fluticasone (Advair 250/50 Diskus) 1 inh BID INH Last administered on 06/17/16 09:42; Admin Dose 1 INH; Start 06/10/16 at 18:30 Lactulose (Enulose) 10 gm Q12 PEG Last administered on 06/17/16 09:42; Admin Dose 10 GM; Start 06/13/16 at 12:00 Levothyroxine Sodium (Synthroid) 50 mcg DAILY@06 PEG Last administered on 06:38; Admin Dose 50 MCG; Start 06/13/16 at 12:00 Chlorhexidine Gluconate (Peridex) 15 ml BID MT Last administered on 06/17/16 09:43; Admin Dose 15 ML; Start 06/14/16 at 21:00 IV Flush (NS 10 ml) 10 ml PRN PRN IV PRN; Start 06/14/16 at 16:00 IV Flush 10 ml 10 ml PRN PRN IV IV PROTOCOL; Start 06/14/16 at 17:30 Vancomycin HCl (Vancocin) 250 ml @ 125 mls/hr Q12H IVPB Last administered on 04:32; Admin Dose 125 MLS/HR; Start 06/15/16 at 03:00 Spironolactone (Aldactone) 25 mg DAILY NGT Last administered on 06/17/16 09:42 ; Admin Dose 25 MG; Start 06/15/16 at 11:30 Furosemide (Lasix) 20 mg DAILY GTB Last administered on 06/17/16 09:42; Admin Dose 20 MG; Start 06/15/16 at 11:30 ADONIS PARTIDA Jun 17, 2016 14:14
[2016-06-17 14:19] LABS: CONDITION 1; LH ANALYZER COMMENTS 1; SUSPECT 1
[2016-06-17] MEDS ORDERED: LORAZEPAM 2 MG INJ IV ONE (18:00)
[2016-06-17] MEDS ORDERED: hydrALAzine 20 MG INJ IV STA (18:04)
[2016-06-17] MEDS ORDERED: SOD CHLORIDE 0.9% 500 ML IV ONE (20:30)
[2016-06-17 20:34] LABS: HEMATOCRIT 22.4 % (42.0-52.0); HEMOGLOBIN 7.2 g/dl (14.0-18.0); MEAN CORPUSCULAR HEMOGLOBIN 28.1 pg (29.0-33.0); MEAN CORPUSCULAR VOLUME 87.6 fl (82.0-101.0); MEAN PLATELET VOLUME 7.8 fl (7.4-10.4); PLATELET COUNT 306 10^3/UL (140-440); RED BLOOD COUNT 2.55 10^6/ul (4.70-6.10); RED CELL DISTRIBUTION WIDTH 16.9 % (11.5-14.5); UNCORRECTED WBC 24.6 10^3/ul (4.8-10.8); WHITE BLOOD COUNT 24.6 10^3/ul (4.8-10.8)
[2016-06-17 20:35] LABS: CONDITION 1; LH ANALYZER COMMENTS 1; SUSPECT 1
[2016-06-17 20:43] LABS: ALBUMIN 1.7 g/dl (3.3-4.9)
[2016-06-17 20:45] LABS: BILIRUBIN,INDIRECT 0.3 mg/dl (0-1.1); BILIRUBIN,TOTAL 0.3 mg/dl (0.2-1.3); CREATININE 0.51 mg/dl (0.61-1.24); INR 2.06; PARTIAL THROMBOPLASTIN TIME 39.4 Sec (25.0-35.0); PROTIME 23.4 Sec (12.2-14.2); PT RATIO 1.8
[2016-06-17 20:46] LABS: TOTAL PROTEIN 5.4 g/dl (6.1-8.1)
[2016-06-17 20:47] LABS: POTASSIUM 2.6 mmol/L (3.5-5.1)
[2016-06-17 20:49] LABS: ALBUMIN/GLOBULIN RATIO 0.45; CALCIUM 5.8 mg/dl (8.4-10.2)
[2016-06-17 20:57] LABS: LYMPHOCYTES # 0.7 10^3/ul (0.8-2.9); MONOCYTE # 0.5 10^3/ul (0.3-0.9); NEUTROPHIL # 20.9 10^3/ul (1.6-7.5); PLATELET ESTIMATE PLT APPEAR ADEQUATE
[2016-06-17] MEDS ORDERED: OCTREOTIDE 50 MCG in SOD CHLORIDE 0.9% 50 ML IVPB ONE (21:30)
[2016-06-17] MEDS: POTASSIUM CHLORIDE 250 ML IVPB SCH (22:07)
[2016-06-17] MEDS: PANTOPRAZOLE IV 80 MG in SOD CHLORIDE 0.9% 100 ML IV SCH (22:08)
[2016-06-17] MEDS: OCTREOTIDE 1 MG in SOD CHLORIDE 0.9% 95 ML IV SCH (22:12)
[2016-06-17 22:24] LABS: AADO2 Arterial 420.2 mmHg (7.0-24.0); Allen Test ACCEPTAB; Arterial Base Excess -3.5 mmol/L (-3.0-3); Arterial COHb 0 % (0.0-3.0); Arterial Fraction of Oxyhgb 98.9 % (93.0-99.0); Arterial HCO3 22.5 mmol/L (22.0-26.0); Arterial MetHb 0.4 % (0.0-1.5); Arterial Total Hemglobin 9.6 g/dl (12.0-18.0); MODE MASK - BIPAP
[2016-06-18] VITALS (44 sets, daily range): BP systolic 89–139; BP diastolic 56–103; PULSE 95–125; RESP 14–36
[2016-06-18] MEDS: POTASSIUM CHLORIDE 250 ML IVPB SCH (00:37)
[2016-06-18] MEDS: VANCOMYCIN 1 GM in NS 250 ML IVPB SCH (04:54)
[2016-06-18] MEDS ORDERED: NORepinephrine 8MG/250 ML (PMX 250 ML IV PRN (05:00)
[2016-06-18] MEDS: INSULIN ASPART [NOVOLOG] 3 ML PEN SC SCH ×4 (05:30→23:18)
[2016-06-18] MEDS: LEVOTHYROXINE 50 MCG TAB PEG SCH (05:30)
[2016-06-18] MEDS: LACTULOSE 30ML CUP PEG SCH ×4 (05:30→23:19)
[2016-06-18] MEDS: ACCUCHECK XX SCH ×4 (05:33→23:19)
[2016-06-18] MEDS ORDERED: PANTOPRAZOLE 40 MG INJ IV SCH (06:00)
[2016-06-18 06:35] LABS: POTASSIUM 5.6 mmol/L (3.5-5.1)
[2016-06-18 06:37] LABS: CREATININE 0.95 mg/dl (0.61-1.24)
[2016-06-18 06:38] LABS: CALCIUM 8.4 mg/dl (8.4-10.2); MAGNESIUM 1.8 mg/dl (1.7-2.5); PHOSPHORUS 3.7 mg/dl (2.5-4.9)
[2016-06-18 07:17] LABS: HEMATOCRIT 23.9 % (42.0-52.0); HEMOGLOBIN 7.9 g/dl (14.0-18.0); MEAN CORPUSCULAR HEMOGLOBIN 29.1 pg (29.0-33.0); MEAN CORPUSCULAR HGB CONC 33.2 g/dl (32.0-37.0); MEAN CORPUSCULAR VOLUME 87.8 fl (82.0-101.0); MEAN PLATELET VOLUME 8.8 fl (7.4-10.4); PLATELET COUNT 234 10^3/UL (140-440); RED BLOOD COUNT 2.72 10^6/ul (4.70-6.10); RED CELL DISTRIBUTION WIDTH 17.4 % (11.5-14.5); UNCORRECTED WBC 24.2 10^3/ul (4.8-10.8); WHITE BLOOD COUNT 24.2 10^3/ul (4.8-10.8)
--- NOTE | 2016-06-18 07:28 | RADRPT ---
PROCEDURE: XR Chest. CLINICAL INDICATION: Respiratory distress TECHNIQUE: An AP view of the chest was obtained. COMPARISON: Chest x-ray dated 06/14/2016 FINDINGS: There is a left upper extremity PICC line with tip near the cavoatrial junction. Lung volumes are low. There is prominence of the interstitial and central pulmonary vascular sharon ngs. No pleural effusion or pneumothorax is seen. The cardiomediastinal silhouette is mildly enl arged . Calcifications are seen within the aortic arch. The osseous structures demonstrate senescen t changes. IMPRESSION: 1. Findings suggestive of pulmonary vascular congestion. No significant interval change. 2. Low lung volumes. 3. Aortic atherosclerosis. 4. Left upper extremity PICC line with tip near the cavoatrial junction. RPTAT: HH .Margret Barr MD, MD Date Time Electronically viewed and signed by .Margret Barr MD, on 06/18/2016 07:28 .G/
[2016-06-18 07:29] LABS: CONDITION 1; LH ANALYZER COMMENTS 1
[2016-06-18] MEDS: PANTOPRAZOLE IV 80 MG in SOD CHLORIDE 0.9% 100 ML IV SCH ×2 (07:34→17:28)
[2016-06-18] MEDS: ALBUTEROL/IPRATROPIUM (NEB) 3 ML AMP HHN SCH ×3 (08:11→19:45)
[2016-06-18] MEDS: SALMETEROL/FLUTICASONE 250/50 INHA INH SCH ×2 (09:00→20:59)
[2016-06-18] MEDS: SPIRONOLACTONE 25 MG TAB NGT SCH (09:04)
[2016-06-18] MEDS: FUROSEMIDE 20 MG TAB GTB SCH (09:04)
[2016-06-18] MEDS: CHLORHEXIDINE GLUCONATE 15 ML UD CUP MT SCH ×2 (09:04→20:59)
[2016-06-18 10:26] LABS: LYMPHOCYTES # 1.5 10^3/ul (0.8-2.9); MONOCYTE # 0.7 10^3/ul (0.3-0.9); NEUTROPHIL # 20.1 10^3/ul (1.6-7.5)
[2016-06-18] MEDS: OCTREOTIDE 1 MG in SOD CHLORIDE 0.9% 95 ML IV SCH (11:24)
--- NOTE | 2016-06-18 11:36 | PN ---
DATE: 06/18/2016 SUBJECTIVE: The patient was transferred to ICU secondary to low blood pressure and bloody vomiting. He is off pressors, lying comfortably in bed, afebrile, no active bleeding. VITAL SIGNS: Temperature 97.7, pulse 104, respirations 20, blood pressure 132/93, saturation 96%. O f note, his T-max yesterday was 102.1. WBC 24.2 with H and H of 7.9 and 23.9, platelets 234, BUN 23 , creatinine 0.95. MICROBIOLOGY: Blood and urine culture since admission grew coagulase-negative staph species. Repea t blood culture on 06/11/2016 was negative. Sputum culture on admission grew Staphylococcus aureus and Klebsiella oxytoca antimicrobials. The patient is on vancomycin. DIAGNOSTICS: Chest x-ray on 06/17/2016 revealed pulmonary vascular congestion. INDWELLINGS: The patient had a left upper extremity PICC line placed on 06/14/2016. PHYSICAL EXAMINATION: GENERAL: This is a chronically ill-appearing, elderly man who is lying comfortably in bed. HEENT: Head atraumatic, normocephalic. Sclerae anicteric. Buccal mucosa dry. NECK: Supple, trachea midline. CHEST: Rise symmetrical. Breath sounds diminished to bases. HEART: S1, S2. ABDOMEN: Distended. Bowel tones present. EXTREMITIES: Without cyanosis. ASSESSMENT: 1. Ongoing sepsis, multiple etiology, rule out aspiration, possibly urinary retention versus sponta neous bacterial peritonitis (SBP). 2. Coagulase-negative Staphylococcus bacteremia status post peripherally inserted central catheter (PICC) line discontinued, now with new peripherally inserted central catheter line and repeat blood culture on 06/11/2016 negative. 3. Urinary tract infection. 4. Ascites, status post paracentesis, rule out spontaneous bacterial peritonitis. 5. Status post acute respiratory failure on admission. The patient was extubated. 6. Gastrointestinal bleeding status post esophagogastroduodenoscopy with variceal banding on 2015. 7. Encephalopathy. PLAN: The patient is hemodynamically stable. We are going to start him on Merrem given high fever yesterday for possibility of aspiration pneumonia. We are going to reculture him, insert Styles cath eter as the patient seems to have significant urinary retention and also given Lasix without any uri ne output this morning. We will also try to see if we can send peritoneal fluid post paracentesis o n 06/15/2016 for cultures. The patient is being seen by gastroenterology. Possible EGD today. Dictated By: SELMA FLORES MARINE CONSULTANT for JAYCE CHANG/STEVE Conf#: [id number] DID#: [id number]
[2016-06-18] MEDS: MEROPENEM 500 MG in SOD CHLORIDE 0.9% 100 ML IVPB SCH ×2 (11:40→20:58)
--- NOTE | 2016-06-18 11:57 | PN ---
Date/Time of Note Date/Time of Note DATE: 06/18/16 TIME: 11:48 Assessment/Plan VTE Prophylaxis VTE Prophylaxis Intervention: contraindicated, other VTE Contraindication Reason: bleeding Lines/Catheters IV Catheter Type (from Nrsg): PICC Line Central line still needed: Yes Urinary Cath still in place: No Assessment/Plan Chief Complaint/Hosp Course Assessment/Plan: 70 M homeless alcoholic who had originally come in with GI bleed 2/2 varices and has had a prolonged and complicated hospitalization now managed as follows: 1. Sepsis: was resolving earlier, but now pt with increasing WBC, fevers. s/p line holiday / PICC line re-inserted / ID managing abx, appreciate input - now on Meropenem and Vanco, f/u ID rec's 2. Coagulase +staph bacteremia: seen on blood cx's + earlier this admission - with reoccurence of sepsis, will order for UA, Ucx, blood cx - continue abx 3. Enterococcus UTI: followed by ID team - Continue Vanco IV for total 14 days => Today is day # 03/15 4. GI bleed : s/p EGD x 2 for bleed on this admission with findings of esophageal varices s/p banding on both studies. Now with another UGI occurrence yesterday, Hgb lower today as well - closely monitor hgb/ GI following / appreciate input - planning for repeat EGD later today by GI team. - now on Octreotide and PPI IV as well 5. Encephalopathy + Dysphagia Patient's mental status has improved considerably since early admission with the use antipsychotics He is now oriented x4 but very lethargic, all antipsychotics held d/t severe lethargy 6. S/p Resp failure + ventilator dependence now extubated with residual rhonchi and stridor Continue scheduled bronchodilator therapy / inhaled steroids / continue PRN O2 / gentle diuresis 7. Alcoholism with Alcoholic liver cirrhosis causing #5 + coagulopathy Last paracentesis 06/14/16/ removed 3.6L / Continue lactulose / monitor coag profile / intervene PRN 8. Acute on chronic anemia 2/2 Blood loss +#7 +FTT see above 9. Homelessness: CM working on SNF placement 10. Newly diagnosed Hypothyroidism- on Levothyroxine 11. HTN: controlled on clonidine patch Dispo Continue PEG feeds / paracentesis done 06/14/16 - 3.6L removed Continue supportive care, f/u repeat EGD results, H/H, sepsis Critical care time spent with pt care today = 45 min. . Problems: Subjective 24 Hr Interval Summary Free Text/Dictation Pt transferred to ICU after UGI bleed and hypoxia. Exam/Review of Systems Vital Signs Vitals Vital Signs Date Time Temp Pulse Resp B/P Pulse Ox O2 Delivery O2 Flow Rate FiO2 06/18/16 11:00 96 21 98/65 98 Nasal Cannula 06/18/16 08:00 97.7 06/18/16 04:17 9.0 35 Intake and Output 06/17/16 06/17/16 06/18/16 15:00 23:00 07:00 Intake Total 728.5 ml 682.5 ml Balance 728.5 ml 682.5 ml Exam Constitutional: lying in bed Head: normocephalic Eyes: icteric ENMT: supple Respiratory: slightly less diminished breath sounds Cardiovascular: regular rate and rhythm, No murmurs/extra sounds Gastrointestinal: nL bowel sounds, distended, soft Musculoskeletal: other (severe msc wasting) Neurological: lethargic Results Result Diagram: 06/18/16 0430 06/18/16 0430 Results 24 hrs Laboratory Tests Test 06/17/16 11:54 06/17/16 13:50 06/17/16 18:06 06/17/16 20:30 Bedside Glucose 136 123 Basophils # 0.0 Basophils % 0.0 Blood Morphology Comment Eosinophils # 0.0 Eosinophils % 0.0 Hematocrit 32.7 L 22.4 #L Hemoglobin 10.4 L 7.2 #L Lymphocytes # 1.2 0.7 L Lymphocytes % 5.8 L 3.0 L Mean Corpuscular Hemoglobin 28.1 L 28.1 L Mean Corpuscular Hemoglobin Concent 31.9 L 32.0 Mean Corpuscular Volume 88.1 87.6 Mean Platelet Volume 8.2 7.8 Monocytes # 0.7 0.5 Monocytes % 3.4 2.0 Neutrophils # 18.7 H 20.9 H Neutrophils % 90.8 H 85.0 H Nucleated Red Blood Cells # 0.0 Nucleated Red Blood Cells % 0.0 Platelet Count 286 306 Red Blood Count 3.71 L 2.55 #L Red Cell Distribution Width 17.2 H 16.9 H White Blood Count 20.6 H 24.6 H Activated Partial Thromboplast Time 39.4 H Alanine Aminotransferase (ALT/SGPT) 41 Albumin 1.7 L Albumin/Globulin Ratio 0.45 Alkaline Phosphatase 135 H Anion Gap 13 Aspartate Amino Transf (AST/SGOT) 39 Band Neutrophils % 10.0 H Blood Urea Nitrogen 13 Calcium Level 5.8 *L Carbon Dioxide Level 18 L Chloride Level 122 H Creatinine 0.51 L Direct Bilirubin 0.00 Globulin 3.70 H Glucose Level 94 # INR International Normalized Ratio 2.06 Indirect Bilirubin 0.3 Platelet Estimate PLT APPEAR ADEQUATE Potassium Level 2.6 *L Prothrombin Time 23.4 #H Prothrombin Time Ratio 1.8 Sodium Level 150 H Total Bilirubin 0.3 Total Protein 5.4 #L Test 06/17/16 22:02 06/17/16 23:11 06/18/16 04:30 Arterial Blood HCO3 22.5 Arterial Blood Base Excess -3.5 L Arterial Blood Oxygen Saturation 99.3 H Tejinder Test ACCEPTAB Arterial Blood Gas Puncture Site Right Radial Arterial Blood Carboxyhemoglobin 0 Arterial Blood Date Drawn 06/17/2016 10:05:19 PM Arterial Blood Methemoglobin 0.4 Arterial Blood pCO2 (Temp correct) 44.6 Arterial Blood pH (Temp corrected) 7.320 L Arterial Blood pO2 (Temp corrected) 248.2 H Blood Gas A-a O2 Differential 420.2 H Blood Gas Modality MASK - BIPAP Blood Gas Notified Time 06/17/2016 10:24:12 PM Blood Gas Notified Whom KM Blood Gas Specimen Source Blood arterial Blood Gas Temperature 37.0 FiO2 100.0 Oxyhemoglobin Percent 98.9 Total Hemoglobin 9.6 L Bedside Glucose 116 Anion Gap 15 Band Neutrophils % 8.0 H Blood Morphology Comment Blood Urea Nitrogen 23 H Calcium Level 8.4 Carbon Dioxide Level 23 Chloride Level 116 H Creatinine 0.95 Glucose Level 122 Hematocrit 23.9 L Hemoglobin 7.9 L Lymphocytes # 1.5 Lymphocytes % 6.0 L Magnesium Level 1.8 Mean Corpuscular Hemoglobin 29.1 Mean Corpuscular Hemoglobin Concent 33.2 Mean Corpuscular Volume 87.8 Mean Platelet Volume 8.8 Monocytes # 0.7 Monocytes % 3.0 Neutrophils # 20.1 H Neutrophils % 83.0 H Phosphorus Level 3.7 Platelet Count 234 # Potassium Level 5.6 #H Red Blood Count 2.72 L Red Cell Distribution Width 17.4 H Sodium Level 148 H White Blood Count 24.2 H Medications Medications Current Medications Ondansetron HCl (Zofran Inj) 4 mg Q6H PRN IV NAUSEA AND/OR VOMITING; Start 05/07/16 at 19:30 Morphine Sulfate (morphine) 2 mg Q4H PRN IV SEVERE PAIN LEVEL 7-10 Last administered on 06/16/16 08:57; Admin Dose 2 MG; Start 05/07/16 at 19:30 Docusate Sodium (Colace) 100 mg Q12H PRN PO CONSTIPATION Last administered on 21:45; Admin Dose 100 MG; Start 05/07/16 at 19:30 IV Flush (NS 10 ml) 10 ml PRN PRN IV IV PROTOCOL; Start 05/17/16 at 12:00 Diagnostic Test (Pha) (Accucheck) 1 ea Q6 XX Last administered on 06/15/16 05: 31; Admin Dose 1 EA; Start 05/28/16 at 12:00 Lorazepam (Ativan) 1 mg Q8 PRN IV AGITATION/ANXIETY Last administered on 17:44; Admin Dose 1 MG; Start 05/28/16 at 22:00 Clonidine HCl (Catapres-Tts 1 Patch) 1 patch Q7D TRANSDERM Last administered on 06/15/16 14:01; Admin Dose 1 PATCH; Start 06/01/16 at 13:30 Acetaminophen (Tylenol Supp) 650 mg Q6H PRN [place] MILD PAIN/FEVER Last administered on 06/17/16 07:56; Admin Dose 650 MG; Start 06/08/16 at 16:30 Insulin Aspart (Novolog Insulin Pen) NOVOLOG *MILD* ALGORI... Q6 SC Last administered on 06/16/16 23:21; Admin Dose 1 UNIT; Start 06/08/16 at 18:00 Miscellaneous Information 1 ea NOTE XX ; Start 06/08/16 at 18:30 Glucose (Glutose) 15 gm Q15M PRN PO DECREASED GLUCOSE; Start 06/08/16 at 18:30 Glucose (Glutose) 22.5 gm Q15M PRN PO DECREASED GLUCOSE; Start 06/08/16 at 18:30 Dextrose (D50w Syringe) 25 ml Q15M PRN IV DECREASED GLUCOSE; Start 06/08/16 at 18:30 Dextrose (D50w Syringe) 50 ml Q15M PRN IV DECREASED GLUCOSE; Start 06/08/16 at 18:30 Glucagon (Glucagen) 1 mg Q15M PRN IM DECREASED GLUCOSE; Start 06/08/16 at 18:30 Glucose (Glutose) 15 gm Q15M PRN BUCCAL DECREASED GLUCOSE; Start 06/08/16 at 18: 30 Salmeterol Xinafoate/ Fluticasone (Advair 250/50 Diskus) 1 inh BID INH Last administered on 06/17/16 09:42; Admin Dose 1 INH; Start 06/10/16 at 18:30 Levothyroxine Sodium (Synthroid) 50 mcg DAILY@06 PEG Last administered on 05:30; Admin Dose 50 MCG; Start 06/13/16 at 12:00 Chlorhexidine Gluconate (Peridex) 15 ml BID MT Last administered on 06/18/16 09:04; Admin Dose 15 ML; Start 06/14/16 at 21:00 IV Flush (NS 10 ml) 10 ml PRN PRN IV PRN; Start 06/14/16 at 16:00 IV Flush (NS 10 ml) 10 ml PRN PRN IV IV PROTOCOL; Start 06/14/16 at 17:30 Spironolactone (Aldactone) 25 mg DAILY NGT Last administered on 06/18/16 09:04 ; Admin Dose 25 MG; Start 06/15/16 at 11:30 Furosemide (Lasix) 20 mg DAILY GTB Last administered on 06/18/16 09:04; Admin Dose 20 MG; Start 06/15/16 at 11:30 Lactulose 10 gm 10 gm Q6 PEG Last administered on 06/18/16 05:30; Admin Dose 10 GM; Start 06/17/16 at 18:00 Pantoprazole 80 mg/Sodium Chloride 100 ml @ 10 mls/hr Q10H IV Last administered on 06/18/16 07:34; Admin Dose 10 MLS/HR; Start 06/17/16 at 21:30 Octreotide Acetate 1 mg/ Sodium Chloride 100 ml @ 5 mls/hr Q20H IV Last administered on 06/18/16 11:24; Admin Dose 5 MLS/HR; Start 06/17/16 at 21:30 Norepinephrine 250 ml @ 1.875 mls/ hr TITRATE PRN IV BLEEDING; Start 06/18/16 at 05:00 Norepinephrine 16 mg/Dextrose 500 ml @ 1.87 mls/hr TITRATE IV ; Start 06/18/16 at 05:00 Meropenem 500 mg/ Sodium Chloride 100 ml @ 200 mls/hr Q12 IVPB Last administered on 06/18/16t 11:40; Admin Dose 200 MLS/HR; Start 06/18/16 at 10:30 Vancomycin HCl (Vancocin) 250 ml @ 125 mls/hr Q12H IVPB ; Start 06/18/16 at 17: 00 Miscellaneous Information (*Rx Drug Level Order Reminder*) 1 ONCE ONCE XX ; Start 06/18/16 at 16:00; Stop 06/18/16 at 16:01 ADONIS PARTIDA Jun 18, 2016 11:56
[2016-06-18 12:31] LABS: ADD UMIC NO; URINE BILIRUBIN (Dip) NEGATIVE (NEGATIVE); URINE BLOOD (Dip) NEGATIVE (NEGATIVE); URINE COLOR LT. YELLOW (YELLOW); URINE GLUCOSE (Dip) NEGATIVE (NEGATIVE); URINE KETONES (Dip) NEGATIVE (NEGATIVE); URINE LEUKOCYTE ESTERASE (Dip) NEGATIVE (NEGATIVE); URINE NITRITE (Dip) NEGATIVE (NEGATIVE); URINE TOTAL PROTEIN (Dip) NEGATIVE (NEGATIVE); URINE UROBILINOGEN (Dip) 0.2 E.U./dL (0.1-1.0)
[2016-06-18] MEDS ORDERED: VANCOMYCIN 1 GM in NS 250 ML IVPB SCH (17:00)
--- NOTE | 2016-06-18 18:04 | GILP ---
DATE OF PROCEDURE: PROCEDURE: Esophagogastroduodenoscopy with endoscopic variceal ligation. PREMEDICATION: Monitored anesthesia care by anesthesiologist. SURGEON: Maia Ochoa MD INSTRUMENT USED: Olympus colonoscope. BRIEF HISTORY AND INDICATIONS: The patient with previous history of esophageal varices post-banding approximately 4 or 5 weeks ago, experienced a new episode of hematemesis with a significant drop i n hemoglobin and hematocrit. The patient is severely confused and no relatives are available. The procedure is considered medically necessary with urgency due to life-threatening gastrointestinal bl eeding. TECHNIQUE: After informed consent, with the patient/relatives understanding the procedure, its indic ations, potential risks and complications, including but not limited to: allergic reaction, bleeding , perforation or infection, and after all pertinent questions were answered to the patients satisfac tion, the patient/relatives signed witnessed informed consent. Following this, premedication was ad ministered slowly IV push under careful cardiovascular and respiratory monitoring with pulse oximetr y, automatic blood pressure and security monitor. Once the sedative effect was achieved the patient was place in the left lateral decubitus, the panen doscope was introduced and advanced under visual control. Careful examination of the upper gastrointestinal tract, both on insertion as well as withdrawal of the instrument disclosed the following findings: ESOPHAGUS: The esophagus shows erythema and edema of the mucosa of a moderate degree. There is one single grade III/IV esophageal varix with stigmata of recent bleeding. STOMACH: Upon entrance to the stomach, air was insufflated, the gastric thompson distended normally. There are some clots in the fundus of the stomach, but no active bleeding or potential bleeding site is identified. PYLORUS: The pylorus appears patent and within normal limits, with no evidence of gastric outlet ob struction. DUODENUM: The duodenal mucosa was carefully examined in the duodenal bulb as well as the second por tion of the duodenum and appears unremarkable with no evidence of duodenitis, ulcer or neoplasm. At this point, the instrument was withdrawn. The banding device was applied to the tip of the instr ument and the instrument was then reintroduced. A single band was applied to the area of the previo usly described grade III/IV varix with stigmata. No residual bleeding is evident. The instrument w as then withdrawn. The patient tolerated the procedure well. IMPRESSION: 1. Grade III/IV single varix distal esophagus with stigmata of recent bleeding, post-endoscopic angelique iceal ligation. 2. Distal esophagitis. PLAN: We will continue Protonix drip and octreotide drip until tomorrow. Further recommendation wi ll depend on patient's clinical course. Dictated By: MAIA OCHOA MS/STEVE Conf#: [id number] DID#: [id number]
[2016-06-19] VITALS (27 sets, daily range): BP systolic 90–188; BP diastolic 56–90; PULSE 90–108; RESP 18–27
[2016-06-19] MEDS: PANTOPRAZOLE IV 80 MG in SOD CHLORIDE 0.9% 100 ML IV SCH ×3 (03:14→14:47)
[2016-06-19] MEDS: ALBUTEROL 0.083% (NEB) 2.5 MG/3 ML AMP HHN PRN ×2 (03:57→22:07)
[2016-06-19 05:39] LABS: POTASSIUM 4.1 mmol/L (3.5-5.1)
[2016-06-19 05:42] LABS: CREATININE 1.56 mg/dl (0.61-1.24)
[2016-06-19 05:43] LABS: CALCIUM 9.1 mg/dl (8.4-10.2); PHOSPHORUS 3.9 mg/dl (2.5-4.9)
[2016-06-19] MEDS ORDERED: VANCOMYCIN 1 GM in NS 250 ML IVPB SCH (06:00)
[2016-06-19] MEDS: ACCUCHECK XX SCH ×3 (06:00→18:00)
[2016-06-19] MEDS: INSULIN ASPART [NOVOLOG] 3 ML PEN SC SCH ×3 (06:00→18:00)
[2016-06-19] MEDS: LEVOTHYROXINE 50 MCG TAB PEG SCH (06:00)
[2016-06-19] MEDS: LACTULOSE 30ML CUP PEG SCH ×3 (06:02→18:05)
[2016-06-19] MEDS: FUROSEMIDE 20 MG TAB GTB SCH (08:40)
[2016-06-19] MEDS: SALMETEROL/FLUTICASONE 250/50 INHA INH SCH ×3 (08:40→22:05)
[2016-06-19] MEDS: SPIRONOLACTONE 25 MG TAB NGT SCH (08:40)
[2016-06-19] MEDS: CHLORHEXIDINE GLUCONATE 15 ML UD CUP MT SCH ×3 (08:40→22:05)
[2016-06-19] MEDS: MEROPENEM 500 MG in SOD CHLORIDE 0.9% 100 ML IVPB SCH ×2 (08:42→21:00)
[2016-06-19 09:40] LABS: BASOPHILS % 0.1 % (0.0-2.0); EOSINOPHILS # 0.1 10^3/ul (0.0-0.5); EOSINOPHILS % 0.6 % (0.0-7.0); HEMOGLOBIN 7.8 g/dl (14.0-18.0); LYMPHOCYTES # 1.4 10^3/ul (0.8-2.9); LYMPHOCYTES % 9.2 % (15.0-51.0); MEAN CORPUSCULAR HEMOGLOBIN 28.6 pg (29.0-33.0); MEAN CORPUSCULAR HGB CONC 32.5 g/dl (32.0-37.0); MEAN PLATELET VOLUME 9.1 fl (7.4-10.4); MONOCYTE # 0.6 10^3/ul (0.3-0.9); MONOCYTES % 4.1 % (0.0-11.0); NEUTROPHIL # 13.4 10^3/ul (1.6-7.5); PLATELET COUNT 231 10^3/UL (140-440); RED BLOOD COUNT 2.72 10^6/ul (4.70-6.10); RED CELL DISTRIBUTION WIDTH 17.1 % (11.5-14.5); UNCORRECTED WBC 15.6 10^3/ul (4.8-10.8); WHITE BLOOD COUNT 15.6 10^3/ul (4.8-10.8)
[2016-06-19 09:51] LABS: CONDITION 1; LH ANALYZER COMMENTS 1
[2016-06-19 09:59] LABS: BASOPHILS % 0.1 % (0.0-2.0); EOSINOPHILS # 0.1 10^3/ul (0.0-0.5); EOSINOPHILS % 0.5 % (0.0-7.0); HEMATOCRIT 23.9 % (42.0-52.0); HEMOGLOBIN 7.7 g/dl (14.0-18.0); LYMPHOCYTES # 0.7 10^3/ul (0.8-2.9); LYMPHOCYTES % 4.8 % (15.0-51.0); MEAN CORPUSCULAR HEMOGLOBIN 28.2 pg (29.0-33.0); MEAN CORPUSCULAR HGB CONC 32.2 g/dl (32.0-37.0); MEAN CORPUSCULAR VOLUME 87.8 fl (82.0-101.0); MEAN PLATELET VOLUME 8.7 fl (7.4-10.4); MONOCYTE # 0.6 10^3/ul (0.3-0.9); MONOCYTES % 4.3 % (0.0-11.0); NEUTROPHIL # 12.9 10^3/ul (1.6-7.5); NEUTROPHILS % 90.3 % (39.0-77.0); PLATELET COUNT 234 10^3/UL (140-440); RED BLOOD COUNT 2.73 10^6/ul (4.70-6.10); RED CELL DISTRIBUTION WIDTH 17.5 % (11.5-14.5); UNCORRECTED WBC 14.3 10^3/ul (4.8-10.8); WHITE BLOOD COUNT 14.3 10^3/ul (4.8-10.8)
[2016-06-19 10:19] LABS: ALBUMIN 2.2 g/dl (3.3-4.9)
[2016-06-19 10:22] LABS: ALBUMIN/GLOBULIN RATIO 0.46; BILIRUBIN,INDIRECT 0.4 mg/dl (0-1.1); BILIRUBIN,TOTAL 0.4 mg/dl (0.2-1.3); CALCIUM 8.9 mg/dl (8.4-10.2); CREATININE 1.6 mg/dl (0.61-1.24); TOTAL PROTEIN 6.9 g/dl (6.1-8.1)
[2016-06-19 10:24] LABS: CONDITION 1; LH ANALYZER COMMENTS 1
[2016-06-19] MEDS ORDERED: SOD CHLORIDE 0.9% 250 ML IV* ONE (11:21)
--- NOTE | 2016-06-19 11:27 | PN ---
Date/Time of Note Date/Time of Note DATE: 06/19/16 TIME: 11:22 Assessment/Plan VTE Prophylaxis VTE Prophylaxis Intervention: contraindicated VTE Contraindication Reason: bleeding Lines/Catheters IV Catheter Type (from Nrsg): PICC Line Central line still needed: Yes Urinary Cath still in place: Yes Reason Cath still needed: urinary retention Assessment/Plan Chief Complaint/Hosp Course Assessment/Plan: 70 M homeless alcoholic who had originally come in with GI bleed 2/2 varices and has had a prolonged and complicated hospitalization now managed as follows: 1. Sepsis: appears to be now resolving, no fevers in last 24 hrs. s/p line holiday / PICC line re-inserted / ID managing abx, appreciate input - continue Meropenem and Vanco, f/u ID rec's 2. Coagulase +staph bacteremia: seen on blood cx's + earlier this admission - with reoccurence of sepsis, will order for UA, Ucx, blood cx - continue abx 3. Enterococcus UTI: followed by ID team - Continue Vanco IV for total 14 days => Today is day # 04/15 4. GI bleed : s/p EGD x 2 for bleed on this admission with findings of esophageal varices s/p banding again yesterday by GI team. - closely monitor hgb/ GI following / appreciate input - transfuse 1 unit pRBC today - continue Octreotide and PPI IV 5. Encephalopathy + Dysphagia Patient's mental status has improved considerably since early admission with the use antipsychotics He is now oriented x4 but very lethargic, all antipsychotics held d/t severe lethargy 6. S/p Resp failure + ventilator dependence now extubated with residual rhonchi and stridor Continue scheduled bronchodilator therapy / inhaled steroids / continue PRN O2 / gentle diuresis 7. Alcoholism with Alcoholic liver cirrhosis causing #5 + coagulopathy Last paracentesis 06/14/16/ removed 3.6L / Continue lactulose / monitor coag profile / intervene PRN 8. Acute on chronic anemia 2/2 Blood loss +#7 +FTT see above 9. Homelessness: CM working on SNF placement 10. Newly diagnosed Hypothyroidism- on Levothyroxine 11. HTN: controlled on clonidine patch Dispo Continue PEG feeds / paracentesis done 06/14/16 - 3.6L removed Continue supportive care, H/H, sepsis Critical care time spent with pt care today = 40 min. . Problems: Subjective 24 Hr Interval Summary Free Text/Dictation Pt had EGD yesterday with banding performed, no signs of GI bleeding presently. Still on PPI and octreotide drips. Exam/Review of Systems Vital Signs Vitals Vital Signs Date Time Temp Pulse Resp B/P Pulse Ox O2 Delivery O2 Flow Rate FiO2 06/19/16 09:00 95 24 124/76 96 Room Air Nasal Cannula 06/19/16 08:00 97.8 3.0 06/18/16 08:11 35 Intake and Output 06/18/16 06/18/16 06/19/16 15:00 23:00 07:00 Intake Total 220 ml 385 ml 245 ml Output Total 200 ml 215 ml 180 ml Balance 20 ml 170 ml 65 ml Exam Constitutional: lying in bed Head: normocephalic Eyes: icteric ENMT: supple Respiratory: slightly less diminished breath sounds Cardiovascular: regular rate and rhythm, No murmurs/extra sounds Gastrointestinal: nL bowel sounds, distended, soft Musculoskeletal: other (severe msc wasting) Neurological: lethargic Results Result Diagram: 06/19/1658 06/19/16 0858 Results 24 hrs Laboratory Tests Test 06/18/16 12:00 06/18/16 12:12 06/18/16 15:50 06/18/16 18:34 Urine Bilirubin NEGATIVE Urine Clarity CLEAR Urine Color LT. YELLOW Urine Glucose NEGATIVE Urine Hemoglobin NEGATIVE Urine Ketones NEGATIVE Urine Leukocyte Esterase NEGATIVE Urine Nitrite NEGATIVE Urine Specific [place] 1.020 Urine Total Protein NEGATIVE Urine Urobilinogen 0.2 E.U./dL Urine pH 5.5 Bedside Glucose 175 122 Vancomycin Level Trough 25.4 *H Test 06/18/16 23:15 06/19/16 04:30 06/19/16 05:59 06/19/16 08:58 Bedside Glucose 111 109 Anion Gap 15 16 Basophils # 0.0 0.0 Basophils % 0.1 0.1 Blood Morphology Comment Blood Urea Nitrogen 34 #H 37 H Calcium Level 9.1 8.9 Carbon Dioxide Level 23 22 Chloride Level 118 H 118 H Creatinine 1.56 H 1.60 H Eosinophils # 0.1 0.1 Eosinophils % 0.6 0.5 Glucose Level 109 110 Hematocrit 24.0 L 23.9 L Hemoglobin 7.8 L 7.7 L Lymphocytes # 1.4 0.7 L Lymphocytes % 9.2 L 4.8 L Magnesium Level 2.0 Mean Corpuscular Hemoglobin 28.6 L 28.2 L Mean Corpuscular Hemoglobin Concent 32.5 32.2 Mean Corpuscular Volume 88.0 87.8 Mean Platelet Volume 9.1 8.7 Monocytes # 0.6 0.6 Monocytes % 4.1 4.3 Neutrophils # 13.4 H 12.9 H Neutrophils % 86.0 H 90.3 H Nucleated Red Blood Cells # 0.0 0.0 Nucleated Red Blood Cells % 0.0 0.0 Phosphorus Level 3.9 Platelet Count 231 234 Potassium Level 4.1 4.0 Red Blood Count 2.72 L 2.73 L Red Cell Distribution Width 17.1 H 17.5 H Sodium Level 152 H 152 H White Blood Count 15.6 #H 14.3 H Alanine Aminotransferase (ALT/SGPT) 41 Albumin 2.2 L Albumin/Globulin Ratio 0.46 Alkaline Phosphatase 169 H Ammonia 38 H Aspartate Amino Transf (AST/SGOT) 42 Direct Bilirubin 0.00 Globulin 4.70 H Indirect Bilirubin 0.4 Total Bilirubin 0.4 Total Protein 6.9 # Medications Medications Current Medications Ondansetron HCl (Zofran Inj) 4 mg Q6H PRN IV NAUSEA AND/OR VOMITING; Start 05/07/16 at 19:30 Morphine Sulfate (morphine) 2 mg Q4H PRN IV SEVERE PAIN LEVEL 7-10 Last administered on 06/16/16 08:57; Admin Dose 2 MG; Start 05/07/16 at 19:30 Docusate Sodium (Colace) 100 mg Q12H PRN PO CONSTIPATION Last administered on 21:45; Admin Dose 100 MG; Start 05/07/16 at 19:30 IV Flush (NS 10 ml) 10 ml PRN PRN IV IV PROTOCOL; Start 05/17/16 at 12:00 Diagnostic Test (Pha) (Accucheck) 1 ea Q6 XX Last administered on 06/18/16 18: 35; Admin Dose 1 EA; Start 05/28/16 at 12:00 Lorazepam (Ativan) 1 mg Q8 PRN IV AGITATION/ANXIETY Last administered on 17:44; Admin Dose 1 MG; Start 05/28/16 at 22:00 Clonidine HCl (Catapres-Tts 1 Patch) 1 patch Q7D TRANSDERM Last administered on 06/15/16 14:01; Admin Dose 1 PATCH; Start 06/01/16 at 13:30 Acetaminophen (Tylenol Supp) 650 mg Q6H PRN [place] MILD PAIN/FEVER Last administered on 06/17/16 07:56; Admin Dose 650 MG; Start 06/08/16 at 16:30 Insulin Aspart (Novolog Insulin Pen) NOVOLOG *MILD* ALGORI... Q6 SC Last administered on 06/18/16 12:23; Admin Dose 1 UNIT; Start 06/08/16 at 18:00 Miscellaneous Information 1 ea NOTE XX ; Start 06/08/16 at 18:30 Glucose (Glutose) 15 gm Q15M PRN PO DECREASED GLUCOSE; Start 06/08/16 at 18:30 Glucose (Glutose) 22.5 gm Q15M PRN PO DECREASED GLUCOSE; Start 06/08/16 at 18:30 Dextrose (D50w Syringe) 25 ml Q15M PRN IV DECREASED GLUCOSE; Start 06/08/16 at 18:30 Dextrose (D50w Syringe) 50 ml Q15M PRN IV DECREASED GLUCOSE; Start 06/08/16 at 18:30 Glucagon (Glucagen) 1 mg Q15M PRN IM DECREASED GLUCOSE; Start 06/08/16 at 18:30 Glucose (Glutose) 15 gm Q15M PRN BUCCAL DECREASED GLUCOSE; Start 06/08/16 at 18: 30 Salmeterol Xinafoate/ Fluticasone (Advair 250/50 Diskus) 1 inh BID INH Last administered on 06/17/16 09:42; Admin Dose 1 INH; Start 06/10/16 at 18:30 Levothyroxine Sodium (Synthroid) 50 mcg DAILY@06 PEG Last administered on 05:30; Admin Dose 50 MCG; Start 06/13/16 at 12:00 Chlorhexidine Gluconate (Peridex) 15 ml BID MT Last administered on 06/18/16 20:59; Admin Dose 15 ML; Start 06/14/16 at 21:00 IV Flush (NS 10 ml) 10 ml PRN PRN IV PRN; Start 06/14/16 at 16:00 IV Flush (NS 10 ml) 10 ml PRN PRN IV IV PROTOCOL; Start 06/14/16 at 17:30 Spironolactone (Aldactone) 25 mg DAILY NGT Last administered on 06/18/16 09:04 ; Admin Dose 25 MG; Start 06/15/16 at 11:30 Furosemide (Lasix) 20 mg DAILY GTB Last administered on 06/18/16 09:04; Admin Dose 20 MG; Start 06/15/16 at 11:30 Lactulose 10 gm 10 gm Q6 PEG Last administered on 06/19/16 06:02; Admin Dose 10 GM; Start 06/17/16 at 18:00 Pantoprazole 80 mg/Sodium Chloride 100 ml @ 10 mls/hr Q10H IV Last administered on 06/19/16 03:46; Admin Dose 10 MLS/HR; Start 06/17/16 at 21:30 Norepinephrine 250 ml @ 1.875 mls/ hr TITRATE PRN IV BLEEDING; Start 06/18/16 at 05:00; Stop 06/19/16 at 23:00 Norepinephrine 16 mg/Dextrose 500 ml @ 1.87 mls/hr TITRATE IV ; Start 06/18/16 at 05:00 Meropenem 500 mg/ Sodium Chloride 100 ml @ 200 mls/hr Q12 IVPB Last administered on 06/19/16 08:42; Admin Dose 200 MLS/HR; Start 06/18/16 at 10:30 Vancomycin HCl 750 mg/Sodium Chloride 150 ml @ 75 mls/hr Q36H IVPB ; Start at 17:00; Status Future Hold Sodium Chloride (1/2 NS) 1,000 ml @ 75 mls/hr [id number] IV ; Start 06/19/16 at 11 :30; Stop 06/19/16 at 23:00; Status ADONIS BLOCK Jun 19, 2016 11:27
--- NOTE | 2016-06-19 13:58 | CONS ---
Date/Time of Note Date/Time of Note DATE: 06/19/16 TIME: 13:39 Consultation Date/Type/Reason Admit Date/Time May 07, 2016 at 14:39 Type of Consultation: GI Referring Provider: KASH OLVERA 24 HR Interval Summary Free Text/Dictation Pt Exam/Review of Systems Vital Signs Vitals Vital Signs Date Time Temp Pulse Resp B/P Pulse Ox O2 Delivery O2 Flow Rate FiO2 06/19/16 09:00 95 24 124/76 96 Room Air Nasal Cannula 06/19/16 08:00 97.8 3.0 06/18/16 08:11 35 Intake and Output 06/18/16 06/18/16 06/19/16 15:00 23:00 07:00 Intake Total 220 ml 385 ml 245 ml Output Total 200 ml 215 ml 180 ml Balance 20 ml 170 ml 65 ml Results Result Diagram: 06/19/16 0858 06/19/16 0858 Results 24 hrs Laboratory Tests Test 06/18/16 15:50 06/18/16 18:34 06/18/16 23:15 06/19/16 04:30 Vancomycin Level Trough 25.4 *H Bedside Glucose 122 111 Anion Gap 15 Basophils # 0.0 Basophils % 0.1 Blood Morphology Comment Blood Urea Nitrogen 34 #H Calcium Level 9.1 Carbon Dioxide Level 23 Chloride Level 118 H Creatinine 1.56 H Eosinophils # 0.1 Eosinophils % 0.6 Glucose Level 109 Hematocrit 24.0 L Hemoglobin 7.8 L Lymphocytes # 1.4 Lymphocytes % 9.2 L Magnesium Level 2.0 Mean Corpuscular Hemoglobin 28.6 L Mean Corpuscular Hemoglobin Concent 32.5 Mean Corpuscular Volume 88.0 Mean Platelet Volume 9.1 Monocytes # 0.6 Monocytes % 4.1 Neutrophils # 13.4 H Neutrophils % 86.0 H Nucleated Red Blood Cells # 0.0 Nucleated Red Blood Cells % 0.0 Phosphorus Level 3.9 Platelet Count 231 Potassium Level 4.1 Red Blood Count 2.72 L Red Cell Distribution Width 17.1 H Sodium Level 152 H White Blood Count 15.6 #H Test 06/19/16 05:59 06/19/16 08:58 06/19/16 11:53 Bedside Glucose 109 121 Alanine Aminotransferase (ALT/SGPT) 41 Albumin 2.2 L Albumin/Globulin Ratio 0.46 Alkaline Phosphatase 169 H Ammonia 38 H Anion Gap 16 Aspartate Amino Transf (AST/SGOT) 42 Basophils # 0.0 Basophils % 0.1 Blood Morphology Comment Blood Urea Nitrogen 37 H Calcium Level 8.9 Carbon Dioxide Level 22 Chloride Level 118 H Creatinine 1.60 H Direct Bilirubin 0.00 Eosinophils # 0.1 Eosinophils % 0.5 Globulin 4.70 H Glucose Level 110 Hematocrit 23.9 L Hemoglobin 7.7 L Indirect Bilirubin 0.4 Lymphocytes # 0.7 L Lymphocytes % 4.8 L Mean Corpuscular Hemoglobin 28.2 L Mean Corpuscular Hemoglobin Concent 32.2 Mean Corpuscular Volume 87.8 Mean Platelet Volume 8.7 Monocytes # 0.6 Monocytes % 4.3 Neutrophils # 12.9 H Neutrophils % 90.3 H Nucleated Red Blood Cells # 0.0 Nucleated Red Blood Cells % 0.0 Platelet Count 234 Potassium Level 4.0 Red Blood Count 2.73 L Red Cell Distribution Width 17.5 H Sodium Level 152 H Total Bilirubin 0.4 Total Protein 6.9 # White Blood Count 14.3 H Medications Medications Current Medications Ondansetron HCl (Zofran Inj) 4 mg Q6H PRN IV NAUSEA AND/OR VOMITING; Start 05/07/16 at 19:30 Morphine Sulfate (morphine) 2 mg Q4H PRN IV SEVERE PAIN LEVEL 7-10 Last administered on 06/16/16 08:57; Admin Dose 2 MG; Start 05/07/16 at 19:30 Docusate Sodium (Colace) 100 mg Q12H PRN PO CONSTIPATION Last administered on 21:45; Admin Dose 100 MG; Start 05/07/16 at 19:30 IV Flush (NS 10 ml) 10 ml PRN PRN IV IV PROTOCOL; Start 05/17/16 at 12:00 Diagnostic Test (Pha) (Accucheck) 1 ea Q6 XX Last administered on 06/19/16 11: 54; Admin Dose 1 EA; Start 05/28/16 at 12:00 Lorazepam (Ativan) 1 mg Q8 PRN IV AGITATION/ANXIETY Last administered on 17:44; Admin Dose 1 MG; Start 05/28/16 at 22:00 Clonidine HCl (Catapres-Tts 1 Patch) 1 patch Q7D TRANSDERM Last administered on 06/15/16 14:01; Admin Dose 1 PATCH; Start 06/01/16 at 13:30 Acetaminophen (Tylenol Supp) 650 mg Q6H PRN [place] MILD PAIN/FEVER Last administered on 06/17/16 07:56; Admin Dose 650 MG; Start 06/08/16 at 16:30 Insulin Aspart (Novolog Insulin Pen) NOVOLOG *MILD* ALGORI... Q6 SC Last administered on 06/18/16 12:23; Admin Dose 1 UNIT; Start 06/08/16 at 18:00 Miscellaneous Information 1 ea NOTE XX ; Start 06/08/16 at 18:30 Glucose (Glutose) 15 gm Q15M PRN PO DECREASED GLUCOSE; Start 06/08/16 at 18:30 Glucose (Glutose) 22.5 gm Q15M PRN PO DECREASED GLUCOSE; Start 06/08/16 at 18:30 Dextrose (D50w Syringe) 25 ml Q15M PRN IV DECREASED GLUCOSE; Start 06/08/16 at 18:30 Dextrose (D50w Syringe) 50 ml Q15M PRN IV DECREASED GLUCOSE; Start 06/08/16 at 18:30 Glucagon (Glucagen) 1 mg Q15M PRN IM DECREASED GLUCOSE; Start 06/08/16 at 18:30 Glucose (Glutose) 15 gm Q15M PRN BUCCAL DECREASED GLUCOSE; Start 06/08/16 at 18: 30 Salmeterol Xinafoate/ Fluticasone (Advair 250/50 Diskus) 1 inh BID INH Last administered on 06/17/16 09:42; Admin Dose 1 INH; Start 06/10/16 at 18:30 Levothyroxine Sodium (Synthroid) 50 mcg DAILY@06 PEG Last administered on 05:30; Admin Dose 50 MCG; Start 06/13/16 at 12:00 Chlorhexidine Gluconate (Peridex) 15 ml BID MT Last administered on 06/18/16 20:59; Admin Dose 15 ML; Start 06/14/16 at 21:00 IV Flush (NS 10 ml) 10 ml PRN PRN IV PRN; Start 06/14/16 at 16:00 IV Flush (NS 10 ml) 10 ml PRN PRN IV IV PROTOCOL; Start 06/14/16 at 17:30 Spironolactone (Aldactone) 25 mg DAILY NGT Last administered on 06/18/16 09:04 ; Admin Dose 25 MG; Start 06/15/16 at 11:30 Furosemide (Lasix) 20 mg DAILY GTB Last administered on 06/18/16 09:04; Admin Dose 20 MG; Start 06/15/16 at 11:30 Lactulose 10 gm 10 gm Q6 PEG Last administered on 06/19/16 11:54; Admin Dose 10 GM; Start 06/17/16 at 18:00 Pantoprazole 80 mg/Sodium Chloride 100 ml @ 10 mls/hr Q10H IV Last administered on 06/19/16 03:46; Admin Dose 10 MLS/HR; Start 06/17/16 at 21:30 Norepinephrine 250 ml @ 1.875 mls/ hr TITRATE PRN IV BLEEDING; Start 06/18/16 at 05:00; Stop 06/19/16 at 23:00 Norepinephrine 16 mg/Dextrose 500 ml @ 1.87 mls/hr TITRATE IV ; Start 06/18/16 at 05:00 Meropenem 500 mg/ Sodium Chloride 100 ml @ 200 mls/hr Q12 IVPB Last administered on 06/19/16 08:42; Admin Dose 200 MLS/HR; Start 06/18/16 at 10:30 Vancomycin HCl 750 mg/Sodium Chloride 150 ml @ 75 mls/hr Q36H IVPB ; Start at 17:00; Status Future Hold Sodium Chloride (1/2 NS) 1,000 ml @ 75 mls/hr [id number] IV ; Start 06/19/16 at 11 :30 GEOVANNI ALMODOVAR Jun 19, 2016 13:49
--- NOTE | 2016-06-19 14:19 | CONS ---
Date/Time of Note Date/Time of Note DATE: 06/19/16 TIME: 14:14 Assessment/Plan Assessment/Plan Additional Assessment/Plan 1. Hematemesis/GI bleeding: stable. - 05/17/2016 EGD: Multiple esophageal ulcers, with no evidence of bleeding. Residual esophageal varices, one of the varices with stigmata of recent bleeding. Post-endoscopic variceal ligation x3. No additional potential sources of bleeding identified. - 05/09/2016 EGD: Grade IV/IV esophageal varices with stigmata of recent bleeding "white plug."Post-endoscopic variceal ligation x4 - 06/18/2016 EGD: Grade III/IV single varix distal esophagus with stigmata of recent bleeding, post-endoscopic variceal ligation. Distal esophagitis. 2. Alcoholic cirrhosis 3. Ascites 4. Encephalopathy 5. History of EtOH abuse 6. Dysphagia, status post EGD plus PEG Recommendations: 1. transfuse PRN hgb less than 8 2. Recommend Peptamen 1.5 @ goal rate of 35 cc/hr. Ok to change to different rate and type of tube feed per nutrition eval. 3. paracentesis PRN distention. Please send cell count if paracentesis is done to r/o SBP 4. Continue lactulose 5. Continue other supportive care per primary and other consultants. 6. Further recommendations depend on clinical course. Patient seen in collaboration with Dr. Ochoa. Consultation Date/Type/Reason Admit Date/Time May 07, 2016 at 14:39 Type of Consultation: GI Referring Provider: KASH OLVERA 24 HR Interval Summary Free Text/Dictation Hemoglobin at 7.7, 1 unit PRBC currently transfusing G-tube feed now restarted Exam/Review of Systems Vital Signs Vitals Vital Signs Date Time Temp Pulse Resp B/P Pulse Ox O2 Delivery O2 Flow Rate FiO2 06/19/16 09:00 95 24 124/76 96 Room Air Nasal Cannula 06/19/16 08:00 97.8 3.0 06/18/16 08:11 35 Intake and Output 06/18/16 06/18/16 06/19/16 15:00 23:00 07:00 Intake Total 220 ml 385 ml 245 ml Output Total 200 ml 215 ml 180 ml Balance 20 ml 170 ml 65 ml Exam Head: atraumatic, normocephalic Eyes: EOMI, nl conjunctiva, nl lids, nl sclera ENMT: mucosa pink and moist, nl external ears & nose, nl lips & teeth, nl nasal mucosa & septum Neck: non-tender, supple Respiratory: clear to auscultation, normal air movement Cardiovascular: nl pulses, regular rate and rhythm Gastrointestinal: bowel sounds, non-tender, other (GT c/d/i), soft Results Result Diagram: 06/19/16 0858 06/19/16 0858 Results 24 hrs Laboratory Tests Test 06/18/16 15:50 06/18/16 18:34 06/18/16 23:15 06/19/16 04:30 Vancomycin Level Trough 25.4 *H Bedside Glucose 122 111 Anion Gap 15 Basophils # 0.0 Basophils % 0.1 Blood Morphology Comment Blood Urea Nitrogen 34 #H Calcium Level 9.1 Carbon Dioxide Level 23 Chloride Level 118 H Creatinine 1.56 H Eosinophils # 0.1 Eosinophils % 0.6 Glucose Level 109 Hematocrit 24.0 L Hemoglobin 7.8 L Lymphocytes # 1.4 Lymphocytes % 9.2 L Magnesium Level 2.0 Mean Corpuscular Hemoglobin 28.6 L Mean Corpuscular Hemoglobin Concent 32.5 Mean Corpuscular Volume 88.0 Mean Platelet Volume 9.1 Monocytes # 0.6 Monocytes % 4.1 Neutrophils # 13.4 H Neutrophils % 86.0 H Nucleated Red Blood Cells # 0.0 Nucleated Red Blood Cells % 0.0 Phosphorus Level 3.9 Platelet Count 231 Potassium Level 4.1 Red Blood Count 2.72 L Red Cell Distribution Width 17.1 H Sodium Level 152 H White Blood Count 15.6 #H Test 06/19/16 05:59 06/19/16 08:58 06/19/16 11:53 Bedside Glucose 109 121 Alanine Aminotransferase (ALT/SGPT) 41 Albumin 2.2 L Albumin/Globulin Ratio 0.46 Alkaline Phosphatase 169 H Ammonia 38 H Anion Gap 16 Aspartate Amino Transf (AST/SGOT) 42 Basophils # 0.0 Basophils % 0.1 Blood Morphology Comment Blood Urea Nitrogen 37 H Calcium Level 8.9 Carbon Dioxide Level 22 Chloride Level 118 H Creatinine 1.60 H Direct Bilirubin 0.00 Eosinophils # 0.1 Eosinophils % 0.5 Globulin 4.70 H Glucose Level 110 Hematocrit 23.9 L Hemoglobin 7.7 L Indirect Bilirubin 0.4 Lymphocytes # 0.7 L Lymphocytes % 4.8 L Mean Corpuscular Hemoglobin 28.2 L Mean Corpuscular Hemoglobin Concent 32.2 Mean Corpuscular Volume 87.8 Mean Platelet Volume 8.7 Monocytes # 0.6 Monocytes % 4.3 Neutrophils # 12.9 H Neutrophils % 90.3 H Nucleated Red Blood Cells # 0.0 Nucleated Red Blood Cells % 0.0 Platelet Count 234 Potassium Level 4.0 Red Blood Count 2.73 L Red Cell Distribution Width 17.5 H Sodium Level 152 H Total Bilirubin 0.4 Total Protein 6.9 # White Blood Count 14.3 H Medications Medications Current Medications Ondansetron HCl (Zofran Inj) 4 mg Q6H PRN IV NAUSEA AND/OR VOMITING; Start 05/07/16 at 19:30 Morphine Sulfate (morphine) 2 mg Q4H PRN IV SEVERE PAIN LEVEL 7-10 Last administered on 06/16/16 08:57; Admin Dose 2 MG; Start 05/07/16 at 19:30 Docusate Sodium (Colace) 100 mg Q12H PRN PO CONSTIPATION Last administered on 21:45; Admin Dose 100 MG; Start 05/07/16 at 19:30 IV Flush (NS 10 ml) 10 ml PRN PRN IV IV PROTOCOL; Start 05/17/16 at 12:00 Diagnostic Test (Pha) (Accucheck) 1 ea Q6 XX Last administered on 06/19/16 11: 54; Admin Dose 1 EA; Start 05/28/16 at 12:00 Lorazepam (Ativan) 1 mg Q8 PRN IV AGITATION/ANXIETY Last administered on 17:44; Admin Dose 1 MG; Start 05/28/16 at 22:00 Clonidine HCl (Catapres-Tts 1 Patch) 1 patch Q7D TRANSDERM Last administered on 06/15/16 14:01; Admin Dose 1 PATCH; Start 06/01/16 at 13:30 Acetaminophen (Tylenol Supp) 650 mg Q6H PRN [place] MILD PAIN/FEVER Last administered on 06/17/16 07:56; Admin Dose 650 MG; Start 06/08/16 at 16:30 Insulin Aspart (Novolog Insulin Pen) NOVOLOG *MILD* ALGORI... Q6 SC Last administered on 06/18/16 12:23; Admin Dose 1 UNIT; Start 06/08/16 at 18:00 Miscellaneous Information 1 ea NOTE XX ; Start 06/08/16 at 18:30 Glucose (Glutose) 15 gm Q15M PRN PO DECREASED GLUCOSE; Start 06/08/16 at 18:30 Glucose (Glutose) 22.5 gm Q15M PRN PO DECREASED GLUCOSE; Start 06/08/16 at 18:30 Dextrose (D50w Syringe) 25 ml Q15M PRN IV DECREASED GLUCOSE; Start 06/08/16 at 18:30 Dextrose (D50w Syringe) 50 ml Q15M PRN IV DECREASED GLUCOSE; Start 06/08/16 at 18:30 Glucagon (Glucagen) 1 mg Q15M PRN IM DECREASED GLUCOSE; Start 06/08/16 at 18:30 Glucose (Glutose) 15 gm Q15M PRN BUCCAL DECREASED GLUCOSE; Start 06/08/16 at 18: 30 Salmeterol Xinafoate/ Fluticasone (Advair 250/50 Diskus) 1 inh BID INH Last administered on 06/17/16 09:42; Admin Dose 1 INH; Start 06/10/16 at 18:30 Levothyroxine Sodium (Synthroid) 50 mcg DAILY@06 PEG Last administered on 05:30; Admin Dose 50 MCG; Start 06/13/16 at 12:00 Chlorhexidine Gluconate (Peridex) 15 ml BID MT Last administered on 06/18/16 20:59; Admin Dose 15 ML; Start 06/14/16 at 21:00 IV Flush (NS 10 ml) 10 ml PRN PRN IV PRN; Start 06/14/16 at 16:00 IV Flush (NS 10 ml) 10 ml PRN PRN IV IV PROTOCOL; Start 06/14/16 at 17:30 Spironolactone (Aldactone) 25 mg DAILY NGT Last administered on 06/18/16 09:04 ; Admin Dose 25 MG; Start 06/15/16 at 11:30 Furosemide (Lasix) 20 mg DAILY GTB Last administered on 06/18/16 09:04; Admin Dose 20 MG; Start 06/15/16 at 11:30 Lactulose 10 gm 10 gm Q6 PEG Last administered on 06/19/16 11:54; Admin Dose 10 GM; Start 06/17/16 at 18:00 Pantoprazole 80 mg/Sodium Chloride 100 ml @ 10 mls/hr Q10H IV Last administered on 06/19/16 03:46; Admin Dose 10 MLS/HR; Start 06/17/16 at 21:30 Norepinephrine 250 ml @ 1.875 mls/ hr TITRATE PRN IV BLEEDING; Start 06/18/16 at 05:00; Stop 06/19/16 at 23:00 Norepinephrine 16 mg/Dextrose 500 ml @ 1.87 mls/hr TITRATE IV ; Start 06/18/16 at 05:00 Meropenem 500 mg/ Sodium Chloride 100 ml @ 200 mls/hr Q12 IVPB Last administered on 06/19/16 08:42; Admin Dose 200 MLS/HR; Start 06/18/16 at 10:30 Vancomycin HCl 750 mg/Sodium Chloride 150 ml @ 75 mls/hr Q36H IVPB ; Start at 17:00; Status Future Hold Sodium Chloride (1/2 NS) 1,000 ml @ 75 mls/hr [id number] IV ; Start 06/19/16 at 11 :30 GEOVANNI ALMODOVAR Jun 19, 2016 14:19
--- NOTE | 2016-06-19 15:05 | PN ---
DATE: 06/19/2016 INFECTIOUS DISEASE PROGRESS NOTE SUBJECTIVE: No acute changes. The patient is lethargic. He is in no distress, no fevers. WBC tod ay 14.3, neutrophils 90.3, BUN 37, creatinine 1.6. MICROBIOLOGY: Blood culture on 06/11/2016 and urine culture negative. ANTIMICROBIALS: 1. Vancomycin. 2. Meropenem. INDWELLINGS: Styles, PICC line. OBJECTIVE: GENERAL: This is a cachectic, chronically ill-appearing, elderly man who is in no distress . HEENT: Head atraumatic, normocephalic. Sclerae anicteric. Buccal mucosa dry. NECK: Supple, trachea midline. CHEST: Rise symmetrical. Breath sounds diminished. HEART: S1, S2. ABDOMEN: Soft. Bowel tones present. EXTREMITIES: No cyanosis. ASSESSMENT: 1. Status post gastrointestinal bleeding requiring banding, status post EGD yesterday. 2. Coagulase-negative staph bacteremia status post new PICC line. Repeat blood cultures on 017 negative. 3. Status post urinary tract infection. 4. Ascites status post paracentesis, rule out SBP. 5. Encephalopathy, likely hepatic. 6. Status post acute respiratory failure. PLAN: The patient remains stable. No active bleeding. No fevers. He is covered with appropriate antimicrobials. He is on meropenem to cover possible aspiration. We will continue observing him on current regimen. Dictated By: SELMA FLORES [employer] for JAYCE CHANG/NTS Conf#: [id number] DID#: [id number]
[2016-06-19 17:12] LABS: HEMOGLOBIN 9.8 g/dl (14.0-18.0)
[2016-06-19] MEDS: SOD CHLORIDE 0.45% 1,000 ML IV SCH (18:01)
[2016-06-19] MEDS ORDERED: FUROSEMIDE 20 MG INJ IV ONE (23:28)
[2016-06-20] MEDS: LACTULOSE 30ML CUP PEG SCH ×5 (00:34→23:18)
[2016-06-20] MEDS: SOD CHLORIDE 0.45% 1,000 ML IV SCH (00:50)
[2016-06-20] MEDS: ACCUCHECK XX SCH ×5 (06:00→23:22)
[2016-06-20] MEDS: LEVOTHYROXINE 50 MCG TAB PEG SCH (06:08)
[2016-06-20] MEDS: ALBUTEROL 0.083% (NEB) 2.5 MG/3 ML AMP HHN PRN ×3 (06:16→20:17)
[2016-06-20 06:28] LABS: CREATININE 1.68 mg/dl (0.61-1.24)
[2016-06-20] MEDS: INSULIN ASPART [NOVOLOG] 3 ML PEN SC SCH ×5 (06:54→23:22)
[2016-06-20 07:43] VITALS: BP 121/70; RESP 20
[2016-06-20] MEDS: MEROPENEM 500 MG in SOD CHLORIDE 0.9% 100 ML IVPB SCH ×2 (08:18→21:21)
[2016-06-20] MEDS: CHLORHEXIDINE GLUCONATE 15 ML UD CUP MT SCH ×2 (08:18→21:21)
[2016-06-20] MEDS: SALMETEROL/FLUTICASONE 250/50 INHA INH SCH ×2 (08:19→21:21)
[2016-06-20] MEDS: FUROSEMIDE 20 MG TAB GTB SCH (08:19)
[2016-06-20] MEDS: SPIRONOLACTONE 25 MG TAB NGT SCH (08:19)
--- NOTE | 2016-06-20 10:13 | PN ---
Date/Time of Note Date/Time of Note DATE: 06/20/16 TIME: 10:09 Assessment/Plan VTE Prophylaxis VTE Prophylaxis Intervention: contraindicated VTE Contraindication Reason: bleeding Lines/Catheters IV Catheter Type (from Nrsg): PICC Line Central line still needed: Yes Urinary Cath still in place: Yes Reason Cath still needed: urinary retention Assessment/Plan Chief Complaint/Hosp Course Assessment/Plan: 70 M homeless alcoholic who had originally come in with GI bleed 2/2 varices and has had a prolonged and complicated hospitalization now managed as follows: 1. Sepsis: appears to be now resolving, no fevers in last 48 hrs. s/p line holiday / PICC line re-inserted / ID managing abx, appreciate input - continue Meropenem and Vanco, f/u ID rec's (covering for UTI and possible aspiration PNA) 2. Coagulase +staph bacteremia: seen on blood cx's + earlier this admission - f/u repeat blood cx - continue current abx 3. Enterococcus UTI: followed by ID team - Continue Vanco IV for total 14 days => Today is day # 12 4. GI bleed : s/p EGD x 2 for bleed on this admission with findings of esophageal varices s/p banding again yesterday by GI team. - closely monitor hgb/ GI following / appreciate input - continue PPI IV 5. Encephalopathy + Dysphagia Patient's mental status has improved considerably since early admission with the use antipsychotics He is now oriented x4 but very lethargic, all antipsychotics held d/t severe lethargy 6. S/p Resp failure + ventilator dependence now extubated with residual rhonchi and stridor Continue scheduled bronchodilator therapy / inhaled steroids / continue PRN O2 / gentle diuresis 7. Alcoholism with Alcoholic liver cirrhosis causing #5 + coagulopathy Last paracentesis 06/14/16/ removed 3.6L / Continue lactulose / monitor coag profile / intervene PRN 8. Acute on chronic anemia 2/2 Blood loss +#7 +FTT see above 9. Homelessness: CM working on SNF placement 10. Newly diagnosed Hypothyroidism-on Levothyroxine 11. HTN: controlled on clonidine patch Dispo Continue PEG feeds / paracentesis done 06/14/16 - 3.6L removed Continue supportive care, H/H, sepsis . Problems: Subjective 24 Hr Interval Summary Free Text/Dictation Pt out of ICU now, but + SOB, received breathing tx's. No bleeding signs presently. Received pRBC transfusion yesterday 1 unit. Exam/Review of Systems Vital Signs Vitals Vital Signs Date Time Temp Pulse Resp B/P Pulse Ox O2 Delivery O2 Flow Rate FiO2 06/20/16 07:43 98.3 100 20 121/70 98 06/20/16 06:17 21 06/19/16 22:09 3.0 06/19/16 22:07 Nasal Cannula Intake and Output 06/19/16 06/19/16 06/20/16 15:00 23:00 07:00 Intake Total 150 ml 100 ml 1000 ml Output Total 350 ml 1050 ml Balance -200 ml 100 ml -50 ml Exam Constitutional: lying in bed Head: normocephalic Eyes: icteric ENMT: supple Respiratory: slightly less diminished breath sounds Cardiovascular: regular rate and rhythm, No murmurs/extra sounds Gastrointestinal: nL bowel sounds, distended, soft Musculoskeletal: other (severe msc wasting) Neurological: lethargic Results Result Diagram: 06/19/16 1700 06/20/16 0545 Results 24 hrs Laboratory Tests Test 06/19/16 11:53 06/19/16 17:00 06/19/16 17:19 06/20/16 00:35 Bedside Glucose 121 117 137 Hematocrit 30.0 #L Hemoglobin 9.8 #L Test 06/20/16 05:45 06/20/16 06:43 Blood Urea Nitrogen 35 H Creatinine 1.68 H Bedside Glucose 147 Medications Medications Current Medications Ondansetron HCl (Zofran Inj) 4 mg Q6H PRN IV NAUSEA AND/OR VOMITING; Start 05/07/16 at 19:30 Morphine Sulfate (morphine) 2 mg Q4H PRN IV SEVERE PAIN LEVEL 7-10 Last administered on 06/16/16 08:57; Admin Dose 2 MG; Start 05/07/16 at 19:30 Docusate Sodium (Colace) 100 mg Q12H PRN PO CONSTIPATION Last administered on 21:45; Admin Dose 100 MG; Start 05/07/16 at 19:30 IV Flush (NS 10 ml) 10 ml PRN PRN IV IV PROTOCOL; Start 05/17/16 at 12:00 Diagnostic Test (Pha) (Accucheck) 1 ea Q6 XX Last administered on 06/19/16 11: 54; Admin Dose 1 EA; Start 05/28/16 at 12:00 Lorazepam (Ativan) 1 mg Q8 PRN IV AGITATION/ANXIETY Last administered on 17:44; Admin Dose 1 MG; Start 05/28/16 at 22:00 Clonidine HCl (Catapres-Tts 1 Patch) 1 patch Q7D TRANSDERM Last administered on 06/15/16 14:01; Admin Dose 1 PATCH; Start 06/01/16 at 13:30 Acetaminophen (Tylenol Supp) 650 mg Q6H PRN ME MILD PAIN/FEVER Last administered on 06/17/16 07:56; Admin Dose 650 MG; Start 06/08/16 at 16:30 Insulin Aspart (Novolog Insulin Pen) NOVOLOG *MILD* ALGORI... Q6 SC Last administered on 06/20/16 06:54; Admin Dose 1 UNIT; Start 06/08/16 at 18:00 Miscellaneous Information 1 ea NOTE XX ; Start 06/08/16 at 18:30 Glucose (Glutose) 15 gm Q15M PRN PO DECREASED GLUCOSE; Start 06/08/16 at 18:30 Glucose (Glutose) 22.5 gm Q15M PRN PO DECREASED GLUCOSE; Start 06/08/16 at 18:30 Dextrose (D50w Syringe) 25 ml Q15M PRN IV DECREASED GLUCOSE; Start 06/08/16 at 18:30 Dextrose (D50w Syringe) 50 ml Q15M PRN IV DECREASED GLUCOSE; Start 06/08/16 at 18:30 Glucagon (Glucagen) 1 mg Q15M PRN IM DECREASED GLUCOSE; Start 06/08/16 at 18:30 Glucose (Glutose) 15 gm Q15M PRN BUCCAL DECREASED GLUCOSE; Start 06/08/16 at 18: 30 Salmeterol Xinafoate/ Fluticasone (Advair 250/50 Diskus) 1 inh BID INH Last administered on 06/20/16 08:19; Admin Dose 1 INH; Start 06/10/16 at 18:30 Levothyroxine Sodium (Synthroid) 50 mcg DAILY@06 PEG Last administered on 06:08; Admin Dose 50 MCG; Start 06/13/16 at 12:00 Chlorhexidine Gluconate (Peridex) 15 ml BID MT Last administered on 06/20/16 08:18; Admin Dose 15 ML; Start 06/14/16 at 21:00 IV Flush (NS 10 ml) 10 ml PRN PRN IV PRN; Start 06/14/16 at 16:00 IV Flush (NS 10 ml) 10 ml PRN PRN IV IV PROTOCOL; Start 06/14/16 at 17:30 Spironolactone (Aldactone) 25 mg DAILY NGT Last administered on 06/20/16 08:19 ; Admin Dose 25 MG; Start 06/15/16 at 11:30 Furosemide (Lasix) 20 mg DAILY GTB Last administered on 06/20/16 08:19; Admin Dose 20 MG; Start 06/15/16 at 11:30 Lactulose 10 gm 10 gm Q6 PEG Last administered on 06/20/16 06:07; Admin Dose 10 GM; Start 06/17/16 at 18:00 Pantoprazole 80 mg/Sodium Chloride 100 ml @ 10 mls/hr Q10H IV Last administered on 06/19/16 14:47; Admin Dose 10 MLS/HR; Start 06/17/16 at 21:30 Norepinephrine 16 mg/Dextrose 500 ml @ 1.87 mls/hr TITRATE IV ; Start 06/18/16 at 05:00 Meropenem 500 mg/ Sodium Chloride 100 ml @ 200 mls/hr Q12 IVPB Last administered on 06/20/16 08:18; Admin Dose 200 MLS/HR; Start 06/18/16 at 10:30 Vancomycin HCl/ Sodium Chloride (Vancocin/NS) 150 ml @ 75 mls/hr Q36H IVPB ; Start 06/20/16 at 17:00; Status Future Hold ADONIS PARTIDA Jun 20, 2016 10:13
[2016-06-20] MEDS: PANTOPRAZOLE IV 80 MG in SOD CHLORIDE 0.9% 100 ML IV SCH ×2 (10:19→19:41)
--- NOTE | 2016-06-20 11:06 | RADRPT ---
PROCEDURE: XR Chest AP portable CLINICAL INDICATION: Short of breath TECHNIQUE: An AP portable radiograph of the chest was submitted. COMPARISON: 06/17/2016 FINDINGS: Support Hardware: The left upper extremity PICC catheter is stable in positioning. Cardiovascular: The cardiovascular silhouette appears unremarkable. Lung Stubbs: Increasing patchy areas of airspace disease are seen within the right upper lobe and th e interstitial markings remain exaggerated diffusely related to a suboptimal inspiration. Pleural Spaces: No pneumothorax or pleural effusion is identified. Osseous Structures: The osseous structures appear intact. Soft Tissues: The soft tissues appear unremarkable. IMPRESSION: 1. Interval development of patchy foci of infiltrate within the right upper lobe. 2. A suboptimal inspiration again compresses lung parenchyma. 3. The left upper extremity PICC catheter is stable in positioning. Physician Lu Date Time Electronically viewed and signed by Aj Mohamud Physician on 06/20/2016 11:06 /
[2016-06-20 11:15] LABS: BASOPHILS % 0.3 % (0.0-2.0); EOSINOPHILS # 0.1 10^3/ul (0.0-0.5); EOSINOPHILS % 0.8 % (0.0-7.0); HEMATOCRIT 29.3 % (42.0-52.0); HEMOGLOBIN 9.5 g/dl (14.0-18.0); MEAN CORPUSCULAR HGB CONC 32.6 g/dl (32.0-37.0); MEAN CORPUSCULAR VOLUME 85.8 fl (82.0-101.0); MEAN PLATELET VOLUME 8.4 fl (7.4-10.4); MONOCYTE # 0.6 10^3/ul (0.3-0.9); MONOCYTES % 4.6 % (0.0-11.0); NEUTROPHIL # 11.1 10^3/ul (1.6-7.5); NEUTROPHILS % 86.3 % (39.0-77.0); PLATELET COUNT 251 10^3/UL (140-440); RED BLOOD COUNT 3.41 10^6/ul (4.70-6.10); RED CELL DISTRIBUTION WIDTH 17.7 % (11.5-14.5); UNCORRECTED WBC 12.9 10^3/ul (4.8-10.8); WHITE BLOOD COUNT 12.9 10^3/ul (4.8-10.8)
[2016-06-20 11:23] LABS: POTASSIUM 3.5 mmol/L (3.5-5.1)
[2016-06-20 11:24] LABS: CONDITION 1; LH ANALYZER COMMENTS 1
[2016-06-20 11:25] LABS: CREATININE 1.92 mg/dl (0.61-1.24)
--- NOTE | 2016-06-20 13:11 | CONS ---
Date/Time of Note Date/Time of Note DATE: 06/20/16 TIME: 13:09 Assessment/Plan Assessment/Plan Additional Assessment/Plan 1. Hematemesis/GI bleeding: stable. - 05/17/2016 EGD: Multiple esophageal ulcers, with no evidence of bleeding. Residual esophageal varices, one of the varices with stigmata of recent bleeding. Post-endoscopic variceal ligation x3. No additional potential sources of bleeding identified. - 05/09/2016 EGD: Grade IV/IV esophageal varices with stigmata of recent bleeding "white plug."Post-endoscopic variceal ligation x4 - 06/18/2016 EGD: Grade III/IV single varix distal esophagus with stigmata of recent bleeding, post-endoscopic variceal ligation. Distal esophagitis. 2. Alcoholic cirrhosis 3. Ascites, plan for paracenteses once INR completed 4. Encephalopathy 5. History of EtOH abuse 6. Dysphagia, status post EGD plus PEG Recommendations: 1. transfuse PRN hgb less than 8 2. Recommend Peptamen 1.5 @ goal rate of 35 cc/hr. Ok to change to different rate and type of tube feed per nutrition eval. 3. paracentesis PRN distention. Please send cell count if paracentesis is done to r/o SBP 4. Continue lactulose 5. Continue other supportive care per primary and other consultants. 6. Further recommendations depend on clinical course. Patient seen in collaboration with Dr. Ochoa. Consultation Date/Type/Reason Admit Date/Time May 07, 2016 at 14:39 Type of Consultation: GI Referring Provider: KASH OLVERA 24 HR Interval Summary Free Text/Dictation G-tube at 35 with minimal residual Marked distention and abdomen Need current INR prior to paracentesis Exam/Review of Systems Vital Signs Vitals Vital Signs Date Time Temp Pulse Resp B/P Pulse Ox O2 Delivery O2 Flow Rate FiO2 06/20/16 12:36 105 22 21 06/20/16 08:15 Nasal Cannula 2.0 06/20/16 07:43 98.3 121/70 98 Intake and Output 06/19/16 06/19/16 06/20/16 15:00 23:00 07:00 Intake Total 150 ml 100 ml 1000 ml Output Total 350 ml 1050 ml Balance -200 ml 100 ml -50 ml Exam Head: atraumatic, normocephalic Eyes: EOMI, nl conjunctiva, nl lids, nl sclera ENMT: mucosa pink and moist, nl external ears & nose, nl lips & teeth, nl nasal mucosa & septum Neck: non-tender, supple Respiratory: clear to auscultation, normal air movement Cardiovascular: nl pulses, regular rate and rhythm Gastrointestinal: bowel sounds, non-tender, other (GT c/d/i), firm, ascites Results Result Diagram: 06/20/16 1110 06/20/16 1110 Results 24 hrs Laboratory Tests Test 06/19/16 17:00 06/19/16 17:19 06/20/16 00:35 06/20/16 05:45 Hematocrit 30.0 #L Hemoglobin 9.8 #L Bedside Glucose 117 137 Blood Urea Nitrogen 35 H Creatinine 1.68 H Test 06/20/16 06:43 06/20/16 11:10 06/20/16 12:04 Bedside Glucose 147 138 Anion Gap 14 Basophils # 0.0 Basophils % 0.3 Blood Morphology Comment Blood Urea Nitrogen 35 H Calcium Level 9.0 Carbon Dioxide Level 22 Chloride Level 118 H Creatinine 1.92 H Eosinophils # 0.1 Eosinophils % 0.8 Glucose Level 145 Hematocrit 29.3 L Hemoglobin 9.5 L Lymphocytes # 1.0 Lymphocytes % 8.0 L Mean Corpuscular Hemoglobin 28.0 L Mean Corpuscular Hemoglobin Concent 32.6 Mean Corpuscular Volume 85.8 Mean Platelet Volume 8.4 Monocytes # 0.6 Monocytes % 4.6 Neutrophils # 11.1 H Neutrophils % 86.3 H Nucleated Red Blood Cells # 0.0 Nucleated Red Blood Cells % 0.0 Platelet Count 251 Potassium Level 3.5 Red Blood Count 3.41 #L Red Cell Distribution Width 17.7 H Sodium Level 150 H White Blood Count 12.9 H Medications Medications Current Medications Ondansetron HCl (Zofran Inj) 4 mg Q6H PRN IV NAUSEA AND/OR VOMITING; Start 05/07/16 at 19:30 Morphine Sulfate (morphine) 2 mg Q4H PRN IV SEVERE PAIN LEVEL 7-10 Last administered on 06/16/16 08:57; Admin Dose 2 MG; Start 05/07/16 at 19:30 Docusate Sodium (Colace) 100 mg Q12H PRN PO CONSTIPATION Last administered on 1 /15/17at 21:45; Admin Dose 100 MG; Start 05/07/16 at 19:30 IV Flush (NS 10 ml) 10 ml PRN PRN IV IV PROTOCOL; Start 05/17/16 at 12:00 Diagnostic Test (Pha) (Accucheck) 1 ea Q6 XX Last administered on 06/20/16 12: 07; Admin Dose 1 EA; Start 05/28/16 at 12:00 Lorazepam (Ativan) 1 mg Q8 PRN IV AGITATION/ANXIETY Last administered on 17:44; Admin Dose 1 MG; Start 05/28/16 at 22:00 Clonidine HCl (Catapres-Tts 1 Patch) 1 patch Q7D TRANSDERM Last administered on 06/15/16 14:01; Admin Dose 1 PATCH; Start 06/01/16 at 13:30 Acetaminophen (Tylenol Supp) 650 mg Q6H PRN [place] MILD PAIN/FEVER Last administered on 06/17/16 07:56; Admin Dose 650 MG; Start 06/08/16 at 16:30 Insulin Aspart (Novolog Insulin Pen) NOVOLOG *MILD* ALGORI... Q6 SC Last administered on 06/20/16 06:54; Admin Dose 1 UNIT; Start 06/08/16 at 18:00 Miscellaneous Information 1 ea NOTE XX ; Start 06/08/16 at 18:30 Glucose (Glutose) 15 gm Q15M PRN PO DECREASED GLUCOSE; Start 06/08/16 at 18:30 Glucose (Glutose) 22.5 gm Q15M PRN PO DECREASED GLUCOSE; Start 06/08/16 at 18:30 Dextrose (D50w Syringe) 25 ml Q15M PRN IV DECREASED GLUCOSE; Start 06/08/16 at 18:30 Dextrose (D50w Syringe) 50 ml Q15M PRN IV DECREASED GLUCOSE; Start 06/08/16 at 18:30 Glucagon (Glucagen) 1 mg Q15M PRN IM DECREASED GLUCOSE; Start 06/08/16 at 18:30 Glucose (Glutose) 15 gm Q15M PRN BUCCAL DECREASED GLUCOSE; Start 06/08/16 at 18: 30 Salmeterol Xinafoate/ Fluticasone (Advair 250/50 Diskus) 1 inh BID INH Last administered on 06/20/16 08:19; Admin Dose 1 INH; Start 06/10/16 at 18:30 Levothyroxine Sodium (Synthroid) 50 mcg DAILY@06 PEG Last administered on 06:08; Admin Dose 50 MCG; Start 06/13/16 at 12:00 Chlorhexidine Gluconate (Peridex) 15 ml BID MT Last administered on 06/20/16 08:18; Admin Dose 15 ML; Start 06/14/16 at 21:00 IV Flush (NS 10 ml) 10 ml PRN PRN IV PRN; Start 06/14/16 at 16:00 IV Flush (NS 10 ml) 10 ml PRN PRN IV IV PROTOCOL; Start 06/14/16 at 17:30 Spironolactone (Aldactone) 25 mg DAILY NGT Last administered on 06/20/16 08:19 ; Admin Dose 25 MG; Start 06/15/16 at 11:30 Furosemide (Lasix) 20 mg DAILY GTB Last administered on 06/20/16 08:19; Admin Dose 20 MG; Start 06/15/16 at 11:30 Lactulose 10 gm 10 gm Q6 PEG Last administered on 06/20/16 12:13; Admin Dose 10 GM; Start 06/17/16 at 18:00 Pantoprazole 80 mg/Sodium Chloride 100 ml @ 10 mls/hr Q10H IV Last administered on 06/20/16 10:19; Admin Dose 10 MLS/HR; Start 06/17/16 at 21:30 Norepinephrine 16 mg/Dextrose 500 ml @ 1.87 mls/hr TITRATE IV ; Start 06/18/16 at 05:00; Status Future Hold Meropenem 500 mg/ Sodium Chloride 100 ml @ 200 mls/hr Q12 IVPB Last administered on 06/20/16 08:18; Admin Dose 200 MLS/HR; Start 06/18/16 at 10:30 Vancomycin HCl/ Sodium Chloride (Vancocin/NS) 150 ml @ 75 mls/hr Q36H IVPB ; Start 06/20/16 at 17:00; Status Future Hold Miscellaneous Information (*Rx Drug Level Order Reminder*) VANCO TROUGH @ 1, 500 ON... ONCE ONCE XX ; Start 06/20/16 at 15:00; Stop 06/20/16 at 15:01 GEOVANNI ALMODOVAR Jun 20, 2016 13:10
--- NOTE | 2016-06-20 14:00 | CONS ---
Date/Time of Note Date/Time of Note DATE: 06/20/16 TIME: 13:58 Consult Date/Type/Reason Admit Date/Time May 07, 2016 at 14:39 Initial Consult Date 05/20/16 Type of Consultation: ID Ordering Provider: KASH OLVERA Subjective awake, confused, having difficulty to cough up secretions, nad, no fevers Objective Vital Signs Date Time Temp Pulse Resp B/P Pulse Ox O2 Delivery O2 Flow Rate FiO2 06/20/16 12:36 105 22 21 06/20/16 08:15 Nasal Cannula 2.0 06/20/16 07:43 98.3 121/70 98 Intake and Output 06/19/16 06/19/16 06/20/16 15:00 23:00 07:00 Intake Total 150 ml 100 ml 1000 ml Output Total 350 ml 1050 ml Balance -200 ml 100 ml -50 ml Results/Medications Result Diagram: 06/20/16 1110 06/20/16 1110 Results 24 hrs Laboratory Tests Test 06/19/16 17:00 06/19/16 17:19 06/20/16 00:35 06/20/16 05:45 Hematocrit 30.0 #L Hemoglobin 9.8 #L Bedside Glucose 117 137 Blood Urea Nitrogen 35 H Creatinine 1.68 H Test 06/20/16 06:43 06/20/16 11:10 06/20/16 12:04 Bedside Glucose 147 138 Anion Gap 14 Basophils # 0.0 Basophils % 0.3 Blood Morphology Comment Blood Urea Nitrogen 35 H Calcium Level 9.0 Carbon Dioxide Level 22 Chloride Level 118 H Creatinine 1.92 H Eosinophils # 0.1 Eosinophils % 0.8 Glucose Level 145 Hematocrit 29.3 L Hemoglobin 9.5 L Lymphocytes # 1.0 Lymphocytes % 8.0 L Mean Corpuscular Hemoglobin 28.0 L Mean Corpuscular Hemoglobin Concent 32.6 Mean Corpuscular Volume 85.8 Mean Platelet Volume 8.4 Monocytes # 0.6 Monocytes % 4.6 Neutrophils # 11.1 H Neutrophils % 86.3 H Nucleated Red Blood Cells # 0.0 Nucleated Red Blood Cells % 0.0 Platelet Count 251 Potassium Level 3.5 Red Blood Count 3.41 #L Red Cell Distribution Width 17.7 H Sodium Level 150 H White Blood Count 12.9 H Medications Current Medications Ondansetron HCl (Zofran Inj) 4 mg Q6H PRN IV NAUSEA AND/OR VOMITING; Start 05/07/16 at 19:30 Morphine Sulfate (morphine) 2 mg Q4H PRN IV SEVERE PAIN LEVEL 7-10 Last administered on 06/16/16 08:57; Admin Dose 2 MG; Start 05/07/16 at 19:30 Docusate Sodium (Colace) 100 mg Q12H PRN PO CONSTIPATION Last administered on 21:45; Admin Dose 100 MG; Start 05/07/16 at 19:30 IV Flush (NS 10 ml) 10 ml PRN PRN IV IV PROTOCOL; Start 05/17/16 at 12:00 Diagnostic Test (Pha) (Accucheck) 1 ea Q6 XX Last administered on 06/20/16 12: 07; Admin Dose 1 EA; Start 05/28/16 at 12:00 Lorazepam (Ativan) 1 mg Q8 PRN IV AGITATION/ANXIETY Last administered on 17:44; Admin Dose 1 MG; Start 05/28/16 at 22:00 Clonidine HCl (Catapres-Tts 1 Patch) 1 patch Q7D TRANSDERM Last administered on 06/15/16 14:01; Admin Dose 1 PATCH; Start 06/01/16 at 13:30 Acetaminophen (Tylenol Supp) 650 mg Q6H PRN [place] MILD PAIN/FEVER Last administered on 06/17/16 07:56; Admin Dose 650 MG; Start 06/08/16 at 16:30 Insulin Aspart (Novolog Insulin Pen) NOVOLOG *MILD* ALGORI... Q6 SC Last administered on 06/20/16 06:54; Admin Dose 1 UNIT; Start 06/08/16 at 18:00 Miscellaneous Information 1 ea NOTE XX ; Start 06/08/16 at 18:30 Glucose (Glutose) 15 gm Q15M PRN PO DECREASED GLUCOSE; Start 06/08/16 at 18:30 Glucose (Glutose) 22.5 gm Q15M PRN PO DECREASED GLUCOSE; Start 06/08/16 at 18:30 Dextrose (D50w Syringe) 25 ml Q15M PRN IV DECREASED GLUCOSE; Start 06/08/16 at 18:30 Dextrose (D50w Syringe) 50 ml Q15M PRN IV DECREASED GLUCOSE; Start 06/08/16 at 18:30 Glucagon (Glucagen) 1 mg Q15M PRN IM DECREASED GLUCOSE; Start 06/08/16 at 18:30 Glucose (Glutose) 15 gm Q15M PRN BUCCAL DECREASED GLUCOSE; Start 06/08/16 at 18: 30 Salmeterol Xinafoate/ Fluticasone (Advair 250/50 Diskus) 1 inh BID INH Last administered on 06/20/16 08:19; Admin Dose 1 INH; Start 06/10/16 at 18:30 Levothyroxine Sodium (Synthroid) 50 mcg DAILY@06 PEG Last administered on 06:08; Admin Dose 50 MCG; Start 06/13/16 at 12:00 Chlorhexidine Gluconate (Peridex) 15 ml BID MT Last administered on 06/20/16 08:18; Admin Dose 15 ML; Start 06/14/16 at 21:00 IV Flush (NS 10 ml) 10 ml PRN PRN IV PRN; Start 06/14/16 at 16:00 IV Flush (NS 10 ml) 10 ml PRN PRN IV IV PROTOCOL; Start 06/14/16 at 17:30 Spironolactone (Aldactone) 25 mg DAILY NGT Last administered on 06/20/16 08:19 ; Admin Dose 25 MG; Start 06/15/16 at 11:30 Furosemide (Lasix) 20 mg DAILY GTB Last administered on 06/20/16 08:19; Admin Dose 20 MG; Start 06/15/16 at 11:30 Lactulose 10 gm 10 gm Q6 PEG Last administered on 06/20/16 12:13; Admin Dose 10 GM; Start 06/17/16 at 18:00 Pantoprazole 80 mg/Sodium Chloride 100 ml @ 10 mls/hr Q10H IV Last administered on 06/20/16 10:19; Admin Dose 10 MLS/HR; Start 06/17/16 at 21:30 Norepinephrine 16 mg/Dextrose 500 ml @ 1.87 mls/hr TITRATE IV ; Start 06/18/16 at 05:00; Status Future Hold Meropenem 500 mg/ Sodium Chloride 100 ml @ 200 mls/hr Q12 IVPB Last administered on 06/20/16 08:18; Admin Dose 200 MLS/HR; Start 06/18/16 at 10:30 Vancomycin HCl/ Sodium Chloride (Vancocin/NS) 150 ml @ 75 mls/hr Q36H IVPB ; Start 06/20/16 at 17:00; Status Future Hold Miscellaneous Information (*Rx Drug Level Order Reminder*) VANCO TROUGH @ 1, 500 ON... ONCE ONCE XX ; Start 06/20/16 at 15:00; Stop 06/20/16 at 15:01 Assessment/Plan Chief Complaint/Hosp Course MICROBIOLOGY: Blood culture on 06/11/2016 and urine culture negative. ANTIMICROBIALS: 1. Vancomycin. 2. Meropenem. INDWELLINGS: Styles, PICC line. OBJECTIVE: GENERAL: This is a cachectic, chronically ill-appearing, elderly man who is in no distress. HEENT: Head atraumatic, normocephalic. Sclerae anicteric. Buccal mucosa dry. NECK: Supple, trachea midline. CHEST: Rise symmetrical. Breath sounds diminished. HEART: S1, S2. ABDOMEN: Soft. Bowel tones present. EXTREMITIES: No cyanosis. ASSESSMENT: 1. Status post gastrointestinal bleeding requiring banding, status post EGD. 2. Coagulase-negative staph bacteremia status post new PICC line. Repeat blood cultures on 06/11/2016 negative. 3. Status post urinary tract infection. 4. Ascites status post paracentesis, rule out SBP. 5. Encephalopathy, likely hepatic. 6. Status post acute respiratory failure. 7. Aspiration risk 2 to dysphagia and secretions retention 8. Severe decompensation PLAN: Clinically unchanged. No fevers. Continue abx, aspiration precautions, pulmonary toilet, f/u GI/pulmonary rec-s [facility] staff Problems: SELMA FLORES NP Jun 20, 2016 14:00
[2016-06-20 14:54] LABS: INR 1.3; PROTIME 16.3 Sec (12.2-14.2); PT RATIO 1.3
[2016-06-20] MEDS ORDERED: VANCOMYCIN 750 MG in SOD CHLORIDE 0.9% 150 ML IVPB SCH ×2 (17:00→18:00)
[2016-06-20 19:51] VITALS: BP 140/78; RESP 18
[2016-06-21] MEDS: LACTULOSE 30ML CUP PEG SCH ×3 (05:45→18:05)
[2016-06-21] MEDS: LEVOTHYROXINE 50 MCG TAB PEG SCH (05:45)
[2016-06-21] MEDS: PANTOPRAZOLE IV 80 MG in SOD CHLORIDE 0.9% 100 ML IV SCH ×2 (05:45→16:09)
[2016-06-21] MEDS: INSULIN ASPART [NOVOLOG] 3 ML PEN SC SCH ×3 (05:48→18:00)
[2016-06-21] MEDS: ACCUCHECK XX SCH ×3 (05:49→18:06)
[2016-06-21] MEDS: CHLORHEXIDINE GLUCONATE 15 ML UD CUP MT SCH ×2 (08:03→20:59)
[2016-06-21] MEDS: FUROSEMIDE 20 MG TAB GTB SCH (08:04)
[2016-06-21] MEDS: SALMETEROL/FLUTICASONE 250/50 INHA INH SCH ×2 (08:04→20:57)
[2016-06-21] MEDS: SPIRONOLACTONE 25 MG TAB NGT SCH (08:04)
[2016-06-21 08:19] VITALS: BP 137/87; RESP 18
[2016-06-21] MEDS: MEROPENEM 500 MG in SOD CHLORIDE 0.9% 100 ML IVPB SCH ×2 (09:03→20:58)
[2016-06-21 09:21] LABS: BASOPHILS % 0.3 % (0.0-2.0); EOSINOPHILS # 0.1 10^3/ul (0.0-0.5); HEMATOCRIT 29.8 % (42.0-52.0); HEMOGLOBIN 9.6 g/dl (14.0-18.0); LYMPHOCYTES # 1.2 10^3/ul (0.8-2.9); MEAN CORPUSCULAR HEMOGLOBIN 28.2 pg (29.0-33.0); MEAN CORPUSCULAR HGB CONC 32.4 g/dl (32.0-37.0); MEAN PLATELET VOLUME 8.7 fl (7.4-10.4); MONOCYTES % 7.4 % (0.0-11.0); NEUTROPHIL # 10.7 10^3/ul (1.6-7.5); NEUTROPHILS % 82.3 % (39.0-77.0); PLATELET COUNT 267 10^3/UL (140-440); RED BLOOD COUNT 3.43 10^6/ul (4.70-6.10); RED CELL DISTRIBUTION WIDTH 17.4 % (11.5-14.5); UNCORRECTED WBC 13.1 10^3/ul (4.8-10.8); WHITE BLOOD COUNT 13.1 10^3/ul (4.8-10.8)
[2016-06-21 09:26] LABS: CONDITION 1; LH ANALYZER COMMENTS 1
[2016-06-21 09:36] LABS: ALBUMIN 2.6 g/dl (3.3-4.9)
[2016-06-21 09:37] LABS: POTASSIUM 3.6 mmol/L (3.5-5.1)
[2016-06-21 09:39] LABS: ALBUMIN/GLOBULIN RATIO 0.5; BILIRUBIN,INDIRECT 0.4 mg/dl (0-1.1); BILIRUBIN,TOTAL 0.4 mg/dl (0.2-1.3); CALCIUM 9.1 mg/dl (8.4-10.2); CREATININE 1.85 mg/dl (0.61-1.24); TOTAL PROTEIN 7.8 g/dl (6.1-8.1)
--- NOTE | 2016-06-21 10:20 | PN ---
Date/Time of Note Date/Time of Note DATE: 06/21/16 TIME: 10:16 Assessment/Plan VTE Prophylaxis VTE Prophylaxis Intervention: contraindicated VTE Contraindication Reason: bleeding Lines/Catheters IV Catheter Type (from Nrsg): PICC Line Central line still needed: Yes Urinary Cath still in place: Yes Reason Cath still needed: urinary retention Assessment/Plan Chief Complaint/Hosp Course Assessment/Plan: 70 M homeless alcoholic who had originally come in with GI bleed 2/2 varices and has had a prolonged and complicated hospitalization now managed as follows: 1. Sepsis: sec to # 2 and # 3, no fevers in last 72 hrs. s/p line holiday / PICC line re-inserted / ID managing abx, appreciate input - continue Meropenem and Vanco, f/u ID rec's (covering for UTI and possible aspiration PNA) 2. Coagulase +staph bacteremia: seen on blood cx's + earlier this admission - f/u repeat blood cx - continue current abx 3. Enterococcus UTI: followed by ID team - Continue Vanco IV for total 14 days => Today is day # 13/14 4. GI bleed : s/p EGD x 2 for bleed on this admission with findings of esophageal varices s/p banding again yesterday by GI team. - closely monitor hgb/ GI following / appreciate input - continue PPI IV 5. Encephalopathy + Dysphagia He is now oriented x4 but very lethargic, all antipsychotics held d/t severe lethargy 6. S/p Resp failure + ventilator dependence - with more + secretions now, ( was extubated with residual rhonchi and stridor earlier this admission) Continue scheduled bronchodilator therapy / inhaled steroids / continue PRN O2 / gentle diuresis - abx IV 7. Alcoholism with Alcoholic liver cirrhosis causing #5 + coagulopathy. Last paracentesis 06/14/16. Now more distended today. - Continue lactulose / monitor coag profile / intervene PRN - for another paracentesis today. 8. Acute on chronic anemia 2/2 Blood loss +#7 +FTT see above 9. Homelessness: CM working on SNF placement 10. Newly diagnosed Hypothyroidism-on Levothyroxine 11. HTN: controlled on clonidine patch 12. ARF - will get renal consult 13. hypernatremia - will get renal consult Dispo Continue PEG feeds Continue supportive care, H/H, sepsis . Problems: Subjective 24 Hr Interval Summary Free Text/Dictation Pt having SOB still, with increased cough secretions. On abx. Exam/Review of Systems Vital Signs Vitals Vital Signs Date Time Temp Pulse Resp B/P Pulse Ox O2 Delivery O2 Flow Rate FiO2 06/21/16 08:19 97.7 100 18 137/87 95 06/21/16 02:27 3.0 06/20/16 20:17 Nasal Cannula 06/20/16 12:36 21 Intake and Output 06/20/16 06/20/16 06/21/16 15:00 23:00 07:00 Intake Total 100 ml 350 ml Output Total 950 ml 300 ml Balance 100 ml -600 ml -300 ml Exam Constitutional: lying in bed Head: normocephalic Eyes: icteric ENMT: supple Respiratory: slightly less diminished breath sounds Cardiovascular: regular rate and rhythm, No murmurs/extra sounds Gastrointestinal: nL bowel sounds, more firm and distended today, NT Musculoskeletal: other (severe msc wasting) Neurological: lethargic Results Result Diagram: 06/21/16 0855 06/21/16 0855 Results 24 hrs Laboratory Tests Test 06/20/16 11:10 06/20/16 12:04 06/20/16 14:10 06/20/16 14:55 Anion Gap 14 Basophils # 0.0 Basophils % 0.3 Blood Morphology Comment Blood Urea Nitrogen 35 H Calcium Level 9.0 Carbon Dioxide Level 22 Chloride Level 118 H Creatinine 1.92 H Eosinophils # 0.1 Eosinophils % 0.8 Glucose Level 145 Hematocrit 29.3 L Hemoglobin 9.5 L Lymphocytes # 1.0 Lymphocytes % 8.0 L Mean Corpuscular Hemoglobin 28.0 L Mean Corpuscular Hemoglobin Concent 32.6 Mean Corpuscular Volume 85.8 Mean Platelet Volume 8.4 Monocytes # 0.6 Monocytes % 4.6 Neutrophils # 11.1 H Neutrophils % 86.3 H Nucleated Red Blood Cells # 0.0 Nucleated Red Blood Cells % 0.0 Platelet Count 251 Potassium Level 3.5 Red Blood Count 3.41 #L Red Cell Distribution Width 17.7 H Sodium Level 150 H White Blood Count 12.9 H Bedside Glucose 138 Activated Partial Thromboplast Time 37.0 H INR International Normalized Ratio 1.30 Prothrombin Time 16.3 #H Prothrombin Time Ratio 1.3 Vancomycin Level Trough 13.0 Test 06/20/16 17:42 06/20/16 23:21 06/21/16 05:48 06/21/16 08:55 Bedside Glucose 142 131 117 Alanine Aminotransferase (ALT/SGPT) 40 Albumin 2.6 L Albumin/Globulin Ratio 0.50 Alkaline Phosphatase 199 H Ammonia 33 H Anion Gap 16 Aspartate Amino Transf (AST/SGOT) 61 H Basophils # 0.0 Basophils % 0.3 Blood Morphology Comment Blood Urea Nitrogen 36 H Calcium Level 9.1 Carbon Dioxide Level 23 Chloride Level 118 H Creatinine 1.85 H Direct Bilirubin 0.00 Eosinophils # 0.1 Eosinophils % 1.0 Globulin 5.20 H Glucose Level 125 Hematocrit 29.8 L Hemoglobin 9.6 L Indirect Bilirubin 0.4 Lymphocytes # 1.2 Lymphocytes % 9.0 L Mean Corpuscular Hemoglobin 28.2 L Mean Corpuscular Hemoglobin Concent 32.4 Mean Corpuscular Volume 87.0 Mean Platelet Volume 8.7 Monocytes # 1.0 H Monocytes % 7.4 Neutrophils # 10.7 H Neutrophils % 82.3 H Nucleated Red Blood Cells # 0.0 Nucleated Red Blood Cells % 0.0 Platelet Count 267 Potassium Level 3.6 Red Blood Count 3.43 L Red Cell Distribution Width 17.4 H Sodium Level 153 H Total Bilirubin 0.4 Total Protein 7.8 White Blood Count 13.1 H Medications Medications Current Medications Ondansetron HCl (Zofran Inj) 4 mg Q6H PRN IV NAUSEA AND/OR VOMITING; Start 05/07/16 at 19:30 Morphine Sulfate (morphine) 2 mg Q4H PRN IV SEVERE PAIN LEVEL 7-10 Last administered on 06/16/16 08:57; Admin Dose 2 MG; Start 05/07/16 at 19:30 Docusate Sodium (Colace) 100 mg Q12H PRN PO CONSTIPATION Last administered on 21:45; Admin Dose 100 MG; Start 05/07/16 at 19:30 IV Flush (NS 10 ml) 10 ml PRN PRN IV IV PROTOCOL; Start 05/17/16 at 12:00 Diagnostic Test (Pha) (Accucheck) 1 ea Q6 XX Last administered on 06/21/16 05: 49; Admin Dose 1 EA; Start 05/28/16 at 12:00 Lorazepam (Ativan) 1 mg Q8 PRN IV AGITATION/ANXIETY Last administered on 17:44; Admin Dose 1 MG; Start 05/28/16 at 22:00 Clonidine HCl (Catapres-Tts 1 Patch) 1 patch Q7D TRANSDERM Last administered on 06/15/16 14:01; Admin Dose 1 PATCH; Start 06/01/16 at 13:30 Acetaminophen (Tylenol Supp) 650 mg Q6H PRN [place] MILD PAIN/FEVER Last administered on 06/17/16 07:56; Admin Dose 650 MG; Start 06/08/16 at 16:30 Insulin Aspart (Novolog Insulin Pen) NOVOLOG *MILD* ALGORI... Q6 SC Last administered on 06/20/16 17:48; Admin Dose 1 UNIT; Start 06/08/16 at 18:00 Miscellaneous Information 1 ea NOTE XX ; Start 06/08/16 at 18:30 Glucose (Glutose) 15 gm Q15M PRN PO DECREASED GLUCOSE; Start 06/08/16 at 18:30 Glucose (Glutose) 22.5 gm Q15M PRN PO DECREASED GLUCOSE; Start 06/08/16 at 18:30 Dextrose (D50w Syringe) 25 ml Q15M PRN IV DECREASED GLUCOSE; Start 06/08/16 at 18:30 Dextrose (D50w Syringe) 50 ml Q15M PRN IV DECREASED GLUCOSE; Start 06/08/16 at 18:30 Glucagon (Glucagen) 1 mg Q15M PRN IM DECREASED GLUCOSE; Start 06/08/16 at 18:30 Glucose (Glutose) 15 gm Q15M PRN BUCCAL DECREASED GLUCOSE; Start 06/08/16 at 18: 30 Salmeterol Xinafoate/ Fluticasone (Advair 250/50 Diskus) 1 inh BID INH Last administered on 06/21/16 08:04; Admin Dose 1 INH; Start 06/10/16 at 18:30 Levothyroxine Sodium (Synthroid) 50 mcg DAILY@06 PEG Last administered on 05:45; Admin Dose 50 MCG; Start 06/13/16 at 12:00 Chlorhexidine Gluconate (Peridex) 15 ml BID MT Last administered on 06/21/16 08:03; Admin Dose 15 ML; Start 06/14/16 at 21:00 IV Flush (NS 10 ml) 10 ml PRN PRN IV PRN; Start 06/14/16 at 16:00 IV Flush (NS 10 ml) 10 ml PRN PRN IV IV PROTOCOL; Start 06/14/16 at 17:30 Spironolactone (Aldactone) 25 mg DAILY NGT Last administered on 06/21/16 08:04 ; Admin Dose 25 MG; Start 06/15/16 at 11:30 Furosemide (Lasix) 20 mg DAILY GTB Last administered on 06/21/16 08:04; Admin Dose 20 MG; Start 06/15/16 at 11:30 Lactulose 10 gm 10 gm Q6 PEG Last administered on 06/21/16 05:45; Admin Dose 10 GM; Start 06/17/16 at 18:00 Pantoprazole 80 mg/Sodium Chloride 100 ml @ 10 mls/hr Q10H IV Last administered on 06/21/16 05:45; Admin Dose 10 MLS/HR; Start 06/17/16 at 21:30 Norepinephrine 16 mg/Dextrose 500 ml @ 1.87 mls/hr TITRATE IV ; Start 06/18/16 at 05:00; Status Future Hold Meropenem 500 mg/ Sodium Chloride 100 ml @ 200 mls/hr Q12 IVPB Last administered on 06/21/16 09:03; Admin Dose 200 MLS/HR; Start 06/18/16 at 10:30 Vancomycin HCl/ Sodium Chloride (Vancocin/NS) 150 ml @ 75 mls/hr Q36H IVPB Last administered on 06/20/16 17:43; Admin Dose 75 MLS/HR; Start 06/20/16 at 18 :00 ADONIS PARTIDA Jun 21, 2016 10:20
--- NOTE | 2016-06-21 13:23 | PN ---
DATE: 06/21/2016 INFECTIOUS DISEASE PROGRESS NOTE SUBJECTIVE: Patient is sleeping. No fevers, no acute events overnight, looks comfortable. WBC 13.1 with platelets 267, neutrophils 82.3, BUN , creatinine 1.85. INDWELLINGS: PICC line placed on June 14. ANTIMICROBIALS: 1. Vancomycin. 2. Meropenem. PHYSICAL EXAMINATION: GENERAL: This is a cachectic chronically ill-appearing, elderly man who is in no distress. HEENT: Head atraumatic, normocephalic. Sclerae anicteric. Buccal mucosa dry. NECK: Supple, trachea midline. CHEST: Rise symmetrical. Breath sounds diminished to bases. HEART: S1, S2. ABDOMEN: Soft. Bowel tones present. EXTREMITIES: No cyanosis. ASSESSMENT: 1. Sepsis. 2. Pneumonia, possibly aspiration type, secondary to dysphagia and secretion retention. 3. Status post urinary tract infection and bacteremia with culture grew coagulase-negative staph sp ecies, repeat blood cultures negative. 4. Status post gastrointestinal bleeding requiring EGD with variceal banding. 5. Cachexia. 6. Ascites, status post thoracentesis. PLAN: The patient remains unchanged. Covered with appropriate antimicrobials. Continue present ca re, GI recommendations. Anti-aspiration measures. Dictated By: SELMA FLORES CHISEL MORTISER OPERATOR for JAYCE CHANG/STEVE Conf#: [id number] DID#: [id number]
[2016-06-21] MEDS ORDERED: LIDOCAINE 1% (MPF) 5 ML VIAL ONE (14:57)
--- NOTE | 2016-06-21 15:13 | RADRPT ---
PROCEDURE: Ultrasound guided paracentesis. CLINICAL INDICATION: Ascites and shortness of breath. COMPARISON: 06/15/2016. TECHNIQUE: The risks, benefits, and alternatives were explained to the patient, including but not limited to bl eeding, infection, pain, visceral or vascular damage, shock, and . The patient understood the risks and the alternatives and wished to proceed with the procedure. Informed written consent was o btained. A procedural time out was performed. The patient's name, date of , and procedure to b e performed were verified. Utilizing ultrasound guidance, optimal location for entry to the peritoneal cavity was ascertained. The overlying skin was prepped and draped in the usual sterile fashion. Approximately 10 ml of 1% Xylocaine was injected locally for pain control. Using ultrasound guidance, an 8 [place] catheter wa s introduced into the peritoneal cavity in the right lower quadrant without difficulty. FINDINGS: Initial images demonstrate ascites. Approximately 3.55 liters of serous fluid was aspirated and dis carded. The patient tolerated the procedure well without complication. IMPRESSION: 1. Successful ultrasound-guided paracentesis. RPTAT: QQ .Omar Moreira MD, MD Date Time Electronically viewed and signed by .Omar Moreira MD, on 06/21/2016 15:12 .R/
[2016-06-21 15:33] VITALS: BP 143/82; PULSE 91; RESP 18
[2016-06-21] MEDS ORDERED: VANCOMYCIN 750 MG in SOD CHLORIDE 0.9% 150 ML IVPB SCH (17:30)
--- NOTE | 2016-06-21 17:37 | QN ---
Documentation Comment [id number] CAESAR MONSIVAIS MD Jun 21, 2016 17:37
[2016-06-21] MEDS: DEXTROSE 5% 1,000 ML IV SCH (18:05)
--- NOTE | 2016-06-21 18:46 | PN ---
Date/Time of Note Date/Time of Note DATE: 06/21/16 TIME: 18:42 Assessment/Plan VTE Prophylaxis VTE Prophylaxis Intervention: SCD's Lines/Catheters IV C[facility]ter Type (from [facility]): PICC Line Central line still needed: Yes Urinary Cath still in place: Yes Reason Cath still needed: urinary retention Assessment/Plan Assessment/Plan 1. Hematemesis/GI bleeding: stable. - 05/17/2016 EGD: Multiple esophageal ulcers, with no evidence of bleeding. Residual esophageal varices, one of the varices with stigmata of recent bleeding. Post-endoscopic variceal ligation x3. No additional potential sources of bleeding identified. - 05/09/2016 EGD: Grade IV/IV esophageal varices with stigmata of recent bleeding "white plug."Post-endoscopic variceal ligation x4 - 06/18/2016 EGD: Grade III/IV single varix distal esophagus with stigmata of recent bleeding, post-endoscopic variceal ligation. Distal esophagitis. 2. Alcoholic cirrhosis 3. Ascites, plan for paracenteses once INR completed 4. Encephalopathy 5. History of EtOH abuse 6. Dysphagia, status post EGD plus PEG Recommendations: 1. transfuse PRN hgb less than 8 2. Recommend Peptamen 1.5 @ goal rate of 35 cc/hr. Ok to change to different rate and type of tube feed per nutrition eval. 3. Continue lactulose 4. Continue other supportive care per primary and other consultants. Poor prognosis 5. Further recommendations depend on clinical course. Subjective 24 Hr Interval Summary Free Text/Dictation Course reviewed with nursing staff Patient denies any significant abdominal pain Tolerating diet with no nausea vomiting No evidence of overt gastrointestinal bleeding Exam/Review of Systems Vital Signs Vitals Vital Signs Date Time Temp Pulse Resp B/P Pulse Ox O2 Delivery O2 Flow Rate FiO2 06/21/16 18:10 3.0 06/21/16 15:33 97.8 91 18 143/82 94 Nasal Cannula 06/20/16 12:36 21 Intake and Output 06/20/16 06/20/16 06/21/16 15:00 23:00 07:00 Intake Total 100 ml 970 ml Output Total 950 ml 300 ml Balance 100 ml 20 ml -300 ml Exam Constitutional: alert, oriented, well developed (Under nourished/cachectic) Head: atraumatic, normocephalic Neck: non-tender, supple Respiratory: clear to auscultation, normal air movement Cardiovascular: nl pulses, regular rate and rhythm Gastrointestinal: ascites (Small amount), bowel sounds, distended (But soft), tender (Minimally tender), No rebound or guarding Results Result Diagram: 06/21/16 0855 06/21/16 0855 Results 24 hrs Laboratory Tests Test 06/20/16 23:21 06/21/16 05:48 06/21/16 08:55 06/21/16 11:44 Bedside Glucose 131 117 133 Alanine Aminotransferase (ALT/SGPT) 40 Albumin 2.6 L Albumin/Globulin Ratio 0.50 Alkaline Phosphatase 199 H Ammonia 33 H Anion Gap 16 Aspartate Amino Transf (AST/SGOT) 61 H Basophils # 0.0 Basophils % 0.3 Blood Morphology Comment Blood Urea Nitrogen 36 H Calcium Level 9.1 Carbon Dioxide Level 23 Chloride Level 118 H Creatinine 1.85 H Direct Bilirubin 0.00 Eosinophils # 0.1 Eosinophils % 1.0 Globulin 5.20 H Glucose Level 125 Hematocrit 29.8 L Hemoglobin 9.6 L Indirect Bilirubin 0.4 Lymphocytes # 1.2 Lymphocytes % 9.0 L Mean Corpuscular Hemoglobin 28.2 L Mean Corpuscular Hemoglobin Concent 32.4 Mean Corpuscular Volume 87.0 Mean Platelet Volume 8.7 Monocytes # 1.0 H Monocytes % 7.4 Neutrophils # 10.7 H Neutrophils % 82.3 H Nucleated Red Blood Cells # 0.0 Nucleated Red Blood Cells % 0.0 Platelet Count 267 Potassium Level 3.6 Red Blood Count 3.43 L Red Cell Distribution Width 17.4 H Sodium Level 153 H Total Bilirubin 0.4 Total Protein 7.8 White Blood Count 13.1 H Test 06/21/16 18:02 Bedside Glucose 115 Medications Medications Current Medications Ondansetron HCl (Zofran Inj) 4 mg Q6H PRN IV NAUSEA AND/OR VOMITING; Start 05/07/16 at 19:30 Morphine Sulfate (morphine) 2 mg Q4H PRN IV SEVERE PAIN LEVEL 7-10 Last administered on 06/16/16 08:57; Admin Dose 2 MG; Start 05/07/16 at 19:30 Docusate Sodium (Colace) 100 mg Q12H PRN PO CONSTIPATION Last administered on 21:45; Admin Dose 100 MG; Start 05/07/16 at 19:30 IV Flush (NS 10 ml) 10 ml PRN PRN IV IV PROTOCOL; Start 05/17/16 at 12:00 Diagnostic Test (Pha) (Accucheck) 1 ea Q6 XX Last administered on 06/21/16 18: 06; Admin Dose 1 EA; Start 05/28/16 at 12:00 Lorazepam (Ativan) 1 mg Q8 PRN IV AGITATION/ANXIETY Last administered on 17:44; Admin Dose 1 MG; Start 05/28/16 at 22:00 Clonidine HCl (Catapres-Tts 1 Patch) 1 patch Q7D TRANSDERM Last administered on 06/15/16 14:01; Admin Dose 1 PATCH; Start 06/01/16 at 13:30 Acetaminophen (Tylenol Supp) 650 mg Q6H PRN [place] MILD PAIN/FEVER Last administered on 06/17/16 07:56; Admin Dose 650 MG; Start 06/08/16 at 16:30 Insulin Aspart (Novolog Insulin Pen) NOVOLOG *MILD* ALGORI... Q6 SC Last administered on 06/20/16 17:48; Admin Dose 1 UNIT; Start 06/08/16 at 18:00 Miscellaneous Information 1 ea NOTE XX ; Start 06/08/16 at 18:30 Glucose (Glutose) 15 gm Q15M PRN PO DECREASED GLUCOSE; Start 06/08/16 at 18:30 Glucose (Glutose) 22.5 gm Q15M PRN PO DECREASED GLUCOSE; Start 06/08/16 at 18:30 Dextrose (D50w Syringe) 25 ml Q15M PRN IV DECREASED GLUCOSE; Start 06/08/16 at 18:30 Dextrose (D50w Syringe) 50 ml Q15M PRN IV DECREASED GLUCOSE; Start 06/08/16 at 18:30 Glucagon (Glucagen) 1 mg Q15M PRN IM DECREASED GLUCOSE; Start 06/08/16 at 18:30 Glucose (Glutose) 15 gm Q15M PRN BUCCAL DECREASED GLUCOSE; Start 06/08/16 at 18: 30 Salmeterol Xinafoate/ Fluticasone (Advair 250/50 Diskus) 1 inh BID INH Last administered on 06/21/16 08:04; Admin Dose 1 INH; Start 06/10/16 at 18:30 Levothyroxine Sodium (Synthroid) 50 mcg DAILY@06 PEG Last administered on 05:45; Admin Dose 50 MCG; Start 06/13/16 at 12:00 Chlorhexidine Gluconate (Peridex) 15 ml BID MT Last administered on 06/21/16 08:03; Admin Dose 15 ML; Start 06/14/16 at 21:00 IV Flush (NS 10 ml) 10 ml PRN PRN IV PRN; Start 06/14/16 at 16:00 IV Flush (NS 10 ml) 10 ml PRN PRN IV IV PROTOCOL; Start 06/14/16 at 17:30 Spironolactone (Aldactone) 25 mg DAILY NGT Last administered on 06/21/16 08:04 ; Admin Dose 25 MG; Start 06/15/16 at 11:30 Furosemide (Lasix) 20 mg DAILY GTB Last administered on 06/21/16 08:04; Admin Dose 20 MG; Start 06/15/16 at 11:30 Lactulose 10 gm 10 gm Q6 PEG Last administered on 06/21/16 18:05; Admin Dose 10 GM; Start 06/17/16 at 18:00 Pantoprazole 80 mg/Sodium Chloride 100 ml @ 10 mls/hr Q10H IV Last administered on 06/21/16 16:09; Admin Dose 10 MLS/HR; Start 06/17/16 at 21:30 Meropenem/Sodium Chloride (Merrem/NS) 100 ml @ 200 mls/hr Q12 IVPB Last administered on 06/21/16 09:03; Admin Dose 200 MLS/HR; Start 06/18/16 at 10:30 Miscellaneous Information RANDOM VANCO LEVEL ... ONCE ONCE XX ; Start 06/22/16 at 05:00; Stop 06/22/16 at 05:01 Vancomycin HCl 750 mg/Sodium Chloride 150 ml @ 75 mls/hr Q48H IVPB ; Start at 18:00 Dextrose (D5W) 1,000 ml @ 40 mls/hr Q24H IV Last administered on 06/21/16 18: 05; Admin Dose 40 MLS/HR; Start 06/21/16 at 18:00 MAIA ROSA MD Jun 21, 2016 18:46
[2016-06-21 19:58] VITALS: BP 114/64; RESP 20
[2016-06-22] MEDS: LACTULOSE 30ML CUP PEG SCH ×4 (00:33→18:01)
[2016-06-22] MEDS: PANTOPRAZOLE IV 80 MG in SOD CHLORIDE 0.9% 100 ML IV SCH ×3 (02:06→22:03)
[2016-06-22] MEDS: LEVOTHYROXINE 50 MCG TAB PEG SCH (05:33)
[2016-06-22] MEDS: INSULIN ASPART [NOVOLOG] 3 ML PEN SC SCH ×4 (05:35→17:28)
[2016-06-22] MEDS: ACCUCHECK XX SCH ×4 (05:35→17:28)
--- NOTE | 2016-06-22 06:11 | CONS ---
DATE OF ADMISSION: 05/07/2016 DATE OF CONSULTATION: NEPHROLOGY CONSULTATION HISTORY OF PRESENT ILLNESS: The patient is a 70-year-old male who has a history of alcohol abuse, anemia, history of DTs, status post paracentesis of 3.55 liters of fluid removed, and the patient had paracentesis on 06/15/2016 with 3600 of fluid was removed and, in view of patient's abnormal electrolytes, Nephrology consultation requested. PAST MEDICAL HISTORY: Positive for GI bleed, alcoholic cirrhosis, ascites, encephalopathy, electrolyte imbalance. ALLERGY HISTORY: LISTED NEGATIVE. FAMILY HISTORY: Negative. SOCIAL HISTORY: As mentioned above., alcohol abuse. MEDICATION HISTORY: 1. The patient is on meropenem. 2. The patient is on vancomycin. 3. The patient is on Tylenol. 4. Albuterol 5. diuretic 6. Chlorhexidine gluconate. 7. Clonidine patch. 8. Lasix 20 per G-tube daily. 9. Lactulose. 10. Levothyroxine. 11. Lorazepam. 12. NovoLog Insulin. REVIEW OF OTHER SYSTEMS: HEENT: Unremarkable. RESPIRATORY: Unremarkable. CARDIOVASCULAR: No chest pain. ABDOMEN: Status post paracentesis. EXTREMITIES: No edema. CENTRAL NERVOUS SYSTEM: Unremarkable. PHYSICAL EXAMINATION: GENERAL: The patient is a thin-looking male, awake, alert. VITAL SIGNS: Stable. Pulse 103, blood pressure 137/87. HEAD: Atraumatic, normocephalic. Pupils are equal, reactive. Clear conjunctivae. Icterus mild. NECK: Supple. LUNGS: Clear. CARDIOVASCULAR: S1, S2 normal. Systolic murmur noted. ABDOMEN: Soft. Bowel sounds positive. Status post ascites and paracentesis. EXTREMITIES: No cyanosis, clubbing, or edema. CENTRAL NERVOUS SYSTEM: The patient is awake, alert, with no focal deficit. LABORATORY DATA: WBC 13.1, hematocrit 29.8, platelet count of 267. Sodium 130 , potassium 3.6, BUN 36, creatinine 1.85. The patient had a CT of the abdomen that shows hepatic steatosis, hiatus hernia , moderate to large volume of simple-appearing ascites, cholelithiasis, small to moderate bilateral inguinal hernia, compression deformity of L1 and L4, spinal findings of DISH. IMPRESSION: 1. Acute kidney injury. 2. Prerenal azotemia, due to diuretic, and the patient had paracentesis. Underlying CKD, possibly due to severe prerenal azotemia and acute tubular necrosis. No evidence of hepatorenal syndrome at this point. Cirrhosis, ascites. The patient has hypernatremia, free water deficit. 3. The patient has staph sepsis, enterococcus species UTI, PLAN: To obtain urine sodium, creatinine, eosinophil, osmolality, serum osmolality. Gentle IV fluid with D5 water. Patient's electrolytes will be monitored. Further recommendations made when above data is available. Thank you, Dr. posadas, for kindly asking me to see this patient in Nephrology consultation. Dictated By: CAESAR MONSIVAIS MD BS/NTS Conf#: [id number] DID#: [id number]
[2016-06-22 07:29] LABS: ALBUMIN 2.2 g/dl (3.3-4.9); POTASSIUM 3.6 mmol/L (3.5-5.1)
[2016-06-22 07:31] LABS: BILIRUBIN,INDIRECT 0.3 mg/dl (0-1.1); BILIRUBIN,TOTAL 0.3 mg/dl (0.2-1.3); CREATININE 1.82 mg/dl (0.61-1.24)
[2016-06-22 07:32] LABS: ALBUMIN/GLOBULIN RATIO 0.47; CALCIUM 8.7 mg/dl (8.4-10.2); TOTAL PROTEIN 6.8 g/dl (6.1-8.1)
[2016-06-22 07:56] VITALS: BP 132/70; RESP 16
[2016-06-22] MEDS: CHLORHEXIDINE GLUCONATE 15 ML UD CUP MT SCH ×2 (08:27→21:27)
[2016-06-22] MEDS: SPIRONOLACTONE 25 MG TAB NGT SCH (08:28)
[2016-06-22] MEDS: FUROSEMIDE 20 MG TAB GTB SCH (08:28)
[2016-06-22] MEDS: SALMETEROL/FLUTICASONE 250/50 INHA INH SCH ×2 (08:29→21:27)
[2016-06-22] MEDS: MEROPENEM 500 MG in SOD CHLORIDE 0.9% 100 ML IVPB SCH ×2 (08:33→21:27)
--- NOTE | 2016-06-22 08:38 | CONS ---
Date/Time of Note Date/Time of Note DATE: 06/22/16 TIME: 08:36 Assessment/Plan Assessment/Plan Additional Assessment/Plan 1. Hematemesis/GI bleeding: stable. - 05/17/2016 EGD: Multiple esophageal ulcers, with no evidence of bleeding. Residual esophageal varices, one of the varices with stigmata of recent bleeding. Post-endoscopic variceal ligation x3. No additional potential sources of bleeding identified. - 05/09/2016 EGD: Grade IV/IV esophageal varices with stigmata of recent bleeding "white plug."Post-endoscopic variceal ligation x4 - 06/18/2016 EGD: Grade III/IV single varix distal esophagus with stigmata of recent bleeding, post-endoscopic variceal ligation. Distal esophagitis. 2. Alcoholic cirrhosis 3. Ascites, plan for paracenteses once INR completed 4. Encephalopathy 5. History of EtOH abuse 6. Dysphagia, status post EGD plus PEG Recommendations: 1. transfuse PRN hgb less than 8 2. Recommend Peptamen 1.5 @ goal rate of 35 cc/hr. Ok to change to different rate and type of tube feed per nutrition eval. 3. Continue lactulose 4. Continue other supportive care per primary and other consultants. Poor prognosis 5. Further recommendations depend on clinical course. Consultation Date/Type/Reason Admit Date/Time May 07, 2016 at 14:39 Type of Consultation: Gastroenterology Referring Provider: KASH OLVERA 24 HR Interval Summary Free Text/Dictation Stat hemoglobin ordered Tube feed at 35 with minimal residual Patient more comfortable status post paracentesis We will continue to monitor Nephrology following Exam/Review of Systems Vital Signs Vitals Vital Signs Date Time Temp Pulse Resp B/P Pulse Ox O2 Delivery O2 Flow Rate FiO2 06/22/16 07:56 97.7 90 16 132/70 98 06/21/16 20:31 3.0 06/21/16 20:00 Nasal Cannula 06/20/16 12:36 21 Intake and Output 06/21/16 06/21/16 06/22/16 14:59 22:59 06:59 Intake Total 755 ml 645 ml Output Total 1300 ml 200 ml Balance -545 ml 445 ml Exam Constitutional: alert, oriented, well developed (Under nourished/cachectic) Head: atraumatic, normocephalic Neck: non-tender, supple Respiratory: clear to auscultation, normal air movement Cardiovascular: nl pulses, regular rate and rhythm Gastrointestinal: ascites (Small amount), bowel sounds, distended (But soft), tender (Minimally tender), No rebound or guarding Results Result Diagram: 06/21/16 0855 06/22/16 0510 Results 24 hrs Laboratory Tests Test 06/21/16 08:55 06/21/16 11:44 06/21/16 18:02 06/21/16 18:05 Alanine Aminotransferase (ALT/SGPT) 40 Albumin 2.6 L Albumin/Globulin Ratio 0.50 Alkaline Phosphatase 199 H Ammonia 33 H Anion Gap 16 Aspartate Amino Transf (AST/SGOT) 61 H Basophils # 0.0 Basophils % 0.3 Blood Morphology Comment Blood Urea Nitrogen 36 H Calcium Level 9.1 Carbon Dioxide Level 23 Chloride Level 118 H Creatinine 1.85 H Direct Bilirubin 0.00 Eosinophils # 0.1 Eosinophils % 1.0 Globulin 5.20 H Glucose Level 125 Hematocrit 29.8 L Hemoglobin 9.6 L Indirect Bilirubin 0.4 Lymphocytes # 1.2 Lymphocytes % 9.0 L Mean Corpuscular Hemoglobin 28.2 L Mean Corpuscular Hemoglobin Concent 32.4 Mean Corpuscular Volume 87.0 Mean Platelet Volume 8.7 Monocytes # 1.0 H Monocytes % 7.4 Neutrophils # 10.7 H Neutrophils % 82.3 H Nucleated Red Blood Cells # 0.0 Nucleated Red Blood Cells % 0.0 Platelet Count 267 Potassium Level 3.6 Red Blood Count 3.43 L Red Cell Distribution Width 17.4 H Sodium Level 153 H Total Bilirubin 0.4 Total Protein 7.8 White Blood Count 13.1 H Bedside Glucose 133 115 Osmolality 318 H Test 06/21/16 18:45 06/22/16 00:33 06/22/16 05:10 06/22/16 05:34 Urine Osmolality 451 Urine Random Creatinine 54.51 Urine Random Sodium 127 H Bedside Glucose 120 129 Alanine Aminotransferase (ALT/SGPT) 40 Albumin 2.2 L Albumin/Globulin Ratio 0.47 Alkaline Phosphatase 172 H Anion Gap 14 Aspartate Amino Transf (AST/SGOT) 54 H Blood Urea Nitrogen 35 H Calcium Level 8.7 Carbon Dioxide Level 24 Chloride Level 115 H Creatinine 1.82 H Direct Bilirubin 0.00 Globulin 4.60 H Glucose Level 104 Indirect Bilirubin 0.3 Potassium Level 3.6 Random Vancomycin Level 13.0 Sodium Level 149 H Total Bilirubin 0.3 Total Protein 6.8 # Medications Medications Current Medications Ondansetron HCl (Zofran Inj) 4 mg Q6H PRN IV NAUSEA AND/OR VOMITING; Start 05/07/16 at 19:30 Morphine Sulfate (morphine) 2 mg Q4H PRN IV SEVERE PAIN LEVEL 7-10 Last administered on 06/16/16 08:57; Admin Dose 2 MG; Start 05/07/16 at 19:30 Docusate Sodium (Colace) 100 mg Q12H PRN PO CONSTIPATION Last administered on 21:45; Admin Dose 100 MG; Start 05/07/16 at 19:30 IV Flush (NS 10 ml) 10 ml PRN PRN IV IV PROTOCOL; Start 05/17/16 at 12:00 Diagnostic Test (Pha) (Accucheck) 1 ea Q6 XX Last administered on 06/21/16 18: 06; Admin Dose 1 EA; Start 05/28/16 at 12:00 Lorazepam (Ativan) 1 mg Q8 PRN IV AGITATION/ANXIETY Last administered on 17:44; Admin Dose 1 MG; Start 05/28/16 at 22:00 Clonidine HCl (Catapres-Tts 1 Patch) 1 patch Q7D TRANSDERM Last administered on 06/15/16 14:01; Admin Dose 1 PATCH; Start 06/01/16 at 13:30 Acetaminophen (Tylenol Supp) 650 mg Q6H PRN [place] MILD PAIN/FEVER Last administered on 06/17/16 07:56; Admin Dose 650 MG; Start 06/08/16 at 16:30 Insulin Aspart (Novolog Insulin Pen) NOVOLOG *MILD* ALGORI... Q6 SC Last administered on 06/20/16 17:48; Admin Dose 1 UNIT; Start 06/08/16 at 18:00 Miscellaneous Information 1 ea NOTE XX ; Start 06/08/16 at 18:30 Glucose (Glutose) 15 gm Q15M PRN PO DECREASED GLUCOSE; Start 06/08/16 at 18:30 Glucose (Glutose) 22.5 gm Q15M PRN PO DECREASED GLUCOSE; Start 06/08/16 at 18:30 Dextrose (D50w Syringe) 25 ml Q15M PRN IV DECREASED GLUCOSE; Start 06/08/16 at 18:30 Dextrose (D50w Syringe) 50 ml Q15M PRN IV DECREASED GLUCOSE; Start 06/08/16 at 18:30 Glucagon (Glucagen) 1 mg Q15M PRN IM DECREASED GLUCOSE; Start 06/08/16 at 18:30 Glucose (Glutose) 15 gm Q15M PRN BUCCAL DECREASED GLUCOSE; Start 06/08/16 at 18: 30 Salmeterol Xinafoate/ Fluticasone (Advair 250/50 Diskus) 1 inh BID INH Last administered on 06/21/16 20:57; Admin Dose 1 INH; Start 06/10/16 at 18:30 Levothyroxine Sodium (Synthroid) 50 mcg DAILY@06 PEG Last administered on 05:33; Admin Dose 50 MCG; Start 06/13/16 at 12:00 Chlorhexidine Gluconate (Peridex) 15 ml BID MT Last administered on 06/21/16 20:59; Admin Dose 15 ML; Start 06/14/16 at 21:00 IV Flush (NS 10 ml) 10 ml PRN PRN IV PRN; Start 06/14/16 at 16:00 IV Flush (NS 10 ml) 10 ml PRN PRN IV IV PROTOCOL; Start 06/14/16 at 17:30 Spironolactone (Aldactone) 25 mg DAILY NGT Last administered on 06/21/16 08:04 ; Admin Dose 25 MG; Start 06/15/16 at 11:30 Furosemide (Lasix) 20 mg DAILY GTB Last administered on 06/21/16 08:04; Admin Dose 20 MG; Start 06/15/16 at 11:30 Lactulose 10 gm 10 gm Q6 PEG Last administered on 06/22/16 05:32; Admin Dose 10 GM; Start 06/17/16 at 18:00 Pantoprazole 80 mg/Sodium Chloride 100 ml @ 10 mls/hr Q10H IV Last administered on 06/22/16 02:06; Admin Dose 10 MLS/HR; Start 06/17/16 at 21:30 Meropenem 500 mg/ Sodium Chloride 100 ml @ 200 mls/hr Q12 IVPB Last administered on 06/21/16 20:58; Admin Dose 200 MLS/HR; Start 06/18/16 at 10:30 Dextrose 1,000 ml @ 40 mls/hr Q24H IV Last administered on 06/21/16t 18:05; Admin Dose 40 MLS/HR; Start 06/21/16 at 18:00 Vancomycin HCl/ Sodium Chloride (Vancocin/NS) 150 ml @ 75 mls/hr Q36H IVPB ; Start 06/22/16 at 11:00 GEOVANNI ALMODOVAR Jun 22, 2016 08:38
[2016-06-22 09:18] LABS: HEMATOCRIT 29.8 % (42.0-52.0); HEMOGLOBIN 9.8 g/dl (14.0-18.0)
--- NOTE | 2016-06-22 11:12 | CONS ---
Date/Time of Note Date/Time of Note DATE: 06/22/16 TIME: 11:08 Assessment/Plan Assessment/Plan Additional Assessment/Plan 1. MER due to Prerenal azotemia from Liver disease and sepsis 2. Sepsis. 3. Pneumonia, possibly aspiration type, secondary to dysphagia and secretion retention. 4. Status post urinary tract infection and bacteremia with culture grew coagulase-negative staph species, repeat blood cultures negative. 5. Status post gastrointestinal bleeding requiring EGD with variceal banding. 5. Ascites, status post thoracentesis.yeserday Plan: BUN/Cr stable IV abx for sepsis s/p paracentesis yesterday Plan for one dose of IV albumin today will follow up Consultation Date/Type/Reason Admit Date/Time May 07, 2016 at 14:39 Initial Consult Date Type of Consultation: NEHPROLOGY Referring Provider: KASH OLVERA Exam/Review of Systems Vital Signs Vitals Vital Signs Date Time Temp Pulse Resp B/P Pulse Ox O2 Delivery O2 Flow Rate FiO2 06/22/16 09:30 3.0 06/22/16 08:15 Nasal Cannula 06/22/16 07:56 97.7 90 16 132/70 98 06/20/16 12:36 21 Intake and Output 06/21/16 06/21/16 06/22/16 14:59 22:59 06:59 Intake Total 755 ml 645 ml Output Total 1300 ml 200 ml Balance -545 ml 445 ml Exam HEAD: Atraumatic, normocephalic. Pupils are equal, reactive. Clear conjunctivae. Icterus mild. NECK: Supple. LUNGS: Clear. CARDIOVASCULAR: S1, S2 normal. Systolic murmur noted. ABDOMEN: Soft. Bowel sounds positive. Status post ascites and paracentesis. EXTREMITIES: No cyanosis, clubbing, or edema. CENTRAL NERVOUS SYSTEM: The patient is awake, alert, with no focal deficit. Results Result Diagram: 06/22/16 0900 06/22/16 0510 Results 24 hrs Laboratory Tests Test 06/21/16 11:44 06/21/16 18:02 06/21/16 18:05 06/21/16 18:45 Bedside Glucose 133 115 Osmolality 318 H Urine Osmolality 451 Urine Random Creatinine 54.51 Urine Random Sodium 127 H Test 06/22/16 00:33 06/22/16 05:10 06/22/16 05:34 06/22/16 09:00 Bedside Glucose 120 129 Alanine Aminotransferase (ALT/SGPT) 40 Albumin 2.2 L Albumin/Globulin Ratio 0.47 Alkaline Phosphatase 172 H Anion Gap 14 Aspartate Amino Transf (AST/SGOT) 54 H Blood Urea Nitrogen 35 H Calcium Level 8.7 Carbon Dioxide Level 24 Chloride Level 115 H Creatinine 1.82 H Direct Bilirubin 0.00 Globulin 4.60 H Glucose Level 104 Indirect Bilirubin 0.3 Potassium Level 3.6 Random Vancomycin Level 13.0 Sodium Level 149 H Total Bilirubin 0.3 Total Protein 6.8 # Hematocrit 29.8 L Hemoglobin 9.8 L Medications Medications Current Medications Ondansetron HCl (Zofran Inj) 4 mg Q6H PRN IV NAUSEA AND/OR VOMITING; Start 05/07/16 at 19:30 Morphine Sulfate (morphine) 2 mg Q4H PRN IV SEVERE PAIN LEVEL 7-10 Last administered on 06/16/16 08:57; Admin Dose 2 MG; Start 05/07/16 at 19:30 Docusate Sodium (Colace) 100 mg Q12H PRN PO CONSTIPATION Last administered on 21:45; Admin Dose 100 MG; Start 05/07/16 at 19:30 IV Flush (NS 10 ml) 10 ml PRN PRN IV IV PROTOCOL; Start 05/17/16 at 12:00 Diagnostic Test (Pha) (Accucheck) 1 ea Q6 XX Last administered on 06/21/16 18: 06; Admin Dose 1 EA; Start 05/28/16 at 12:00 Lorazepam (Ativan) 1 mg Q8 PRN IV AGITATION/ANXIETY Last administered on 17:44; Admin Dose 1 MG; Start 05/28/16 at 22:00 Clonidine HCl (Catapres-Tts 1 Patch) 1 patch Q7D TRANSDERM Last administered on 06/15/16 14:01; Admin Dose 1 PATCH; Start 06/01/16 at 13:30 Acetaminophen (Tylenol Supp) 650 mg Q6H PRN [place] MILD PAIN/FEVER Last administered on 06/17/16 07:56; Admin Dose 650 MG; Start 06/08/16 at 16:30 Insulin Aspart (Novolog Insulin Pen) NOVOLOG *MILD* ALGORI... Q6 SC Last administered on 06/20/16 17:48; Admin Dose 1 UNIT; Start 06/08/16 at 18:00 Miscellaneous Information 1 ea NOTE XX ; Start 06/08/16 at 18:30 Glucose (Glutose) 15 gm Q15M PRN PO DECREASED GLUCOSE; Start 06/08/16 at 18:30 Glucose (Glutose) 22.5 gm Q15M PRN PO DECREASED GLUCOSE; Start 06/08/16 at 18:30 Dextrose (D50w Syringe) 25 ml Q15M PRN IV DECREASED GLUCOSE; Start 06/08/16 at 18:30 Dextrose (D50w Syringe) 50 ml Q15M PRN IV DECREASED GLUCOSE; Start 06/08/16 at 18:30 Glucagon (Glucagen) 1 mg Q15M PRN IM DECREASED GLUCOSE; Start 06/08/16 at 18:30 Glucose (Glutose) 15 gm Q15M PRN BUCCAL DECREASED GLUCOSE; Start 06/08/16 at 18: 30 Salmeterol Xinafoate/ Fluticasone (Advair 250/50 Diskus) 1 inh BID INH Last administered on 06/22/16 08:29; Admin Dose 1 INH; Start 06/10/16 at 18:30 Levothyroxine Sodium (Synthroid) 50 mcg DAILY@06 PEG Last administered on 05:33; Admin Dose 50 MCG; Start 06/13/16 at 12:00 Chlorhexidine Gluconate (Peridex) 15 ml BID MT Last administered on 06/22/16 08:27; Admin Dose 15 ML; Start 06/14/16 at 21:00 IV Flush (NS 10 ml) 10 ml PRN PRN IV PRN; Start 06/14/16 at 16:00 IV Flush (NS 10 ml) 10 ml PRN PRN IV IV PROTOCOL; Start 06/14/16 at 17:30 Spironolactone (Aldactone) 25 mg DAILY NGT Last administered on 06/22/16 08:28 ; Admin Dose 25 MG; Start 06/15/16 at 11:30 Furosemide (Lasix) 20 mg DAILY GTB Last administered on 06/22/16 08:28; Admin Dose 20 MG; Start 06/15/16 at 11:30 Lactulose 10 gm 10 gm Q6 PEG Last administered on 06/22/16 05:32; Admin Dose 10 GM; Start 06/17/16 at 18:00 Pantoprazole 80 mg/Sodium Chloride 100 ml @ 10 mls/hr Q10H IV Last administered on 06/22/16 02:06; Admin Dose 10 MLS/HR; Start 06/17/16 at 21:30 Meropenem 500 mg/ Sodium Chloride 100 ml @ 200 mls/hr Q12 IVPB Last administered on 06/22/16 08:33; Admin Dose 200 MLS/HR; Start 06/18/16 at 10:30 Dextrose 1,000 ml @ 40 mls/hr Q24H IV Last administered on 06/21/16 18:05; Admin Dose 40 MLS/HR; Start 06/21/16 at 18:00 Vancomycin HCl/ Sodium Chloride (Vancocin/NS) 150 ml @ 75 mls/hr Q36H IVPB ; Start 06/22/16 at 11:00 CIELO ANDRADE MD Jun 22, 2016 11:11
[2016-06-22] MEDS: VANCOMYCIN 750 MG in SOD CHLORIDE 0.9% 150 ML IVPB SCH (11:26)
[2016-06-22] MEDS ORDERED: ALBUMIN HUMAN 25% 100 ML IV ONE (12:30)
--- NOTE | 2016-06-22 12:36 | PN ---
Date/Time of Note Date/Time of Note DATE: 06/22/16 TIME: 12:30 Assessment/Plan VTE Prophylaxis VTE Prophylaxis Intervention: contraindicated VTE Contraindication Reason: bleeding Lines/Catheters IV Catheter Type (from Nrsg): PICC Line Central line still needed: Yes Urinary Cath still in place: Yes Reason Cath still needed: urinary retention Assessment/Plan Chief Complaint/Hosp Course Assessment/Plan: 70 M homeless alcoholic who had originally come in with GI bleed 2/2 varices and has had a prolonged and complicated hospitalization now managed as follows: 1. Sepsis: sec to # 2 and # 3, no fevers in last 3-4 days. s/p line holiday / PICC line re-inserted / ID managing abx, appreciate input - continue Meropenem and Vanco, f/u ID rec's (covering for UTI and possible aspiration PNA) 2. Coagulase +staph bacteremia: seen on blood cx's + earlier this admission - f/u repeat blood cx - continue current abx 3. Enterococcus UTI: followed by ID team - Continue Vanco IV for total 14 days => Today is day # 14/14 4. GI bleed : s/p EGD x 3 this admission for bleed on this admission with findings of esophageal varices s/p banding - closely monitor hgb/ GI following / appreciate input - continue PPI IV 5. Encephalopathy + Dysphagia He is now oriented x4, less lethargic, all antipsychotics held d/t severe lethargy 6. S/p Resp failure + ventilator dependence - with more + secretions now, ( was extubated with residual rhonchi and stridor earlier this admission) Continue scheduled bronchodilator therapy / inhaled steroids / continue PRN O2 / gentle diuresis - abx IV 7. Alcoholism with Alcoholic liver cirrhosis causing #5 + coagulopathy. Last paracentesis 06/14/16. Now more distended today. - Continue lactulose / monitor coag profile / intervene PRN - for another paracentesis today. 8. Acute on chronic anemia 2/2 Blood loss +#7 +FTT see above 9. Homelessness: CM working on SNF placement 10. Newly diagnosed Hypothyroidism-on Levothyroxine 11. HTN: controlled on clonidine patch 12. ARF - slightly improved - appreciate renal consult, sec to Prerenal azotemia from Liver disease and sepsis - f/u urine lytes, rec's - cautious IVF's per renal, albumin x 1 today 13. hypernatremia - appreciate renal consult, slightly improved (152 -> 149) - D5 IVF's at low rate per renal team rec's Dispo Continue PEG feeds Continue supportive care, H/H, sepsis . Problems: Subjective 24 Hr Interval Summary Free Text/Dictation Had paracentesis yesterday, seen by renal team. No acute events overnight. More alert. Exam/Review of Systems Vital Signs Vitals Vital Signs Date Time Temp Pulse Resp B/P Pulse Ox O2 Delivery O2 Flow Rate FiO2 06/22/16 09:30 3.0 06/22/16 08:15 Nasal Cannula 06/22/16 07:56 97.7 90 16 132/70 98 06/20/16 12:36 21 Intake and Output 06/21/16 06/21/16 06/22/16 15:00 23:00 07:00 Intake Total 755 ml 645 ml Output Total 1300 ml 200 ml Balance -545 ml 445 ml Exam Constitutional: lying in bed, alert, NAD Head: normocephalic Eyes: icteric ENMT: supple Respiratory: slightly less diminished breath sounds Cardiovascular: regular rate and rhythm, No murmurs/extra sounds Gastrointestinal: nL bowel sounds, less firm and less distended today, NT Musculoskeletal: other (severe msc wasting) Neurological: less lethargic Results Result Diagram: 06/22/16 0900 06/22/16 0510 Results 24 hrs Laboratory Tests Test 06/21/16 18:02 06/21/16 18:05 06/21/16 18:45 06/22/16 00:33 Bedside Glucose 115 120 Osmolality 318 H Urine Osmolality 451 Urine Random Creatinine 54.51 Urine Random Sodium 127 H Test 06/22/16 05:10 06/22/16 05:34 06/22/16 09:00 06/22/16 12:07 Alanine Aminotransferase (ALT/SGPT) 40 Albumin 2.2 L Albumin/Globulin Ratio 0.47 Alkaline Phosphatase 172 H Anion Gap 14 Aspartate Amino Transf (AST/SGOT) 54 H Blood Urea Nitrogen 35 H Calcium Level 8.7 Carbon Dioxide Level 24 Chloride Level 115 H Creatinine 1.82 H Direct Bilirubin 0.00 Globulin 4.60 H Glucose Level 104 Indirect Bilirubin 0.3 Potassium Level 3.6 Random Vancomycin Level 13.0 Sodium Level 149 H Total Bilirubin 0.3 Total Protein 6.8 # Bedside Glucose 129 100 Hematocrit 29.8 L Hemoglobin 9.8 L Medications Medications Current Medications Ondansetron HCl (Zofran Inj) 4 mg Q6H PRN IV NAUSEA AND/OR VOMITING; Start 05/07/16 at 19:30 Morphine Sulfate (morphine) 2 mg Q4H PRN IV SEVERE PAIN LEVEL 7-10 Last administered on 06/16/16 08:57; Admin Dose 2 MG; Start 05/07/16 at 19:30 Docusate Sodium (Colace) 100 mg Q12H PRN PO CONSTIPATION Last administered on 21:45; Admin Dose 100 MG; Start 05/07/16 at 19:30 IV Flush (NS 10 ml) 10 ml PRN PRN IV IV PROTOCOL; Start 05/17/16 at 12:00 Diagnostic Test (Pha) (Accucheck) 1 ea Q6 XX Last administered on 06/22/16 12: 14; Admin Dose 1 EA; Start 05/28/16 at 12:00 Lorazepam (Ativan) 1 mg Q8 PRN IV AGITATION/ANXIETY Last administered on 17:44; Admin Dose 1 MG; Start 05/28/16 at 22:00 Clonidine HCl (Catapres-Tts 1 Patch) 1 patch Q7D TRANSDERM Last administered on 06/15/16 14:01; Admin Dose 1 PATCH; Start 06/01/16 at 13:30 Acetaminophen (Tylenol Supp) 650 mg Q6H PRN [place] MILD PAIN/FEVER Last administered on 06/17/16 07:56; Admin Dose 650 MG; Start 06/08/16 at 16:30 Insulin Aspart (Novolog Insulin Pen) NOVOLOG *MILD* ALGORI... Q6 SC Last administered on 06/20/16 17:48; Admin Dose 1 UNIT; Start 06/08/16 at 18:00 Miscellaneous Information 1 ea NOTE XX ; Start 06/08/16 at 18:30 Glucose (Glutose) 15 gm Q15M PRN PO DECREASED GLUCOSE; Start 06/08/16 at 18:30 Glucose (Glutose) 22.5 gm Q15M PRN PO DECREASED GLUCOSE; Start 06/08/16 at 18:30 Dextrose (D50w Syringe) 25 ml Q15M PRN IV DECREASED GLUCOSE; Start 06/08/16 at 18:30 Dextrose (D50w Syringe) 50 ml Q15M PRN IV DECREASED GLUCOSE; Start 06/08/16 at 18:30 Glucagon (Glucagen) 1 mg Q15M PRN IM DECREASED GLUCOSE; Start 06/08/16 at 18:30 Glucose (Glutose) 15 gm Q15M PRN BUCCAL DECREASED GLUCOSE; Start 06/08/16 at 18: 30 Salmeterol Xinafoate/ Fluticasone (Advair 250/50 Diskus) 1 inh BID INH Last administered on 06/22/16 08:29; Admin Dose 1 INH; Start 06/10/16 at 18:30 Levothyroxine Sodium (Synthroid) 50 mcg DAILY@06 PEG Last administered on 05:33; Admin Dose 50 MCG; Start 06/13/16 at 12:00 Chlorhexidine Gluconate (Peridex) 15 ml BID MT Last administered on 06/22/16 08:27; Admin Dose 15 ML; Start 06/14/16 at 21:00 IV Flush (NS 10 ml) 10 ml PRN PRN IV PRN; Start 06/14/16 at 16:00 IV Flush (NS 10 ml) 10 ml PRN PRN IV IV PROTOCOL; Start 06/14/16 at 17:30 Spironolactone (Aldactone) 25 mg DAILY NGT Last administered on 06/22/16 08:28 ; Admin Dose 25 MG; Start 06/15/16 at 11:30 Furosemide (Lasix) 20 mg DAILY GTB Last administered on 06/22/16 08:28; Admin Dose 20 MG; Start 06/15/16 at 11:30 Lactulose 10 gm 10 gm Q6 PEG Last administered on 06/22/16 05:32; Admin Dose 10 GM; Start 06/17/16 at 18:00 Pantoprazole 80 mg/Sodium Chloride 100 ml @ 10 mls/hr Q10H IV Last administered on 06/22/16 11:26; Admin Dose 10 MLS/HR; Start 06/17/16 at 21:30 Meropenem 500 mg/ Sodium Chloride 100 ml @ 200 mls/hr Q12 IVPB Last administered on 06/22/16 08:33; Admin Dose 200 MLS/HR; Start 06/18/16 at 10:30 Dextrose 1,000 ml @ 40 mls/hr Q24H IV Last administered on 06/21/16 18:05; Admin Dose 40 MLS/HR; Start 06/21/16 at 18:00 Vancomycin HCl 750 mg/Sodium Chloride 150 ml @ 75 mls/hr Q36H IVPB Last administered on 06/22/16 11:26; Admin Dose 75 MLS/HR; Start 06/22/16 at 11:00 Albumin Human (Albumin Human 25%) 100 ml @ 100 mls/hr ONCE ONCE IV ; Start at 12:30; Stop 06/22/16 at 13:29 ADONIS PARTIDA Jun 22, 2016 12:36
[2016-06-22] MEDS: CLONIDINE 0.1 MG/24 HR PATCH TRANSDERM SCH (15:03)
--- NOTE | 2016-06-22 17:37 | CONS ---
Date/Time of Note Date/Time of Note DATE: 06/22/16 TIME: 17:36 Assessment/Plan Assessment/Plan Chief Complaint/Hosp Course SUBJECTIVE: Patient is sleeping. No fevers, no acute events overnight, looks comfortable. INDWELLINGS: PICC line placed on June 14Stephani. ANTIMICROBIALS: 1. Vancomycin. 2. Meropenem. PHYSICAL EXAMINATION: GENERAL: This is a cachectic chronically ill-appearing, elderly man who is in no distress. HEENT: Head atraumatic, normocephalic. Sclerae anicteric. Buccal mucosa dry. NECK: Supple, trachea midline. CHEST: Rise symmetrical. Breath sounds diminished to bases. HEART: S1, S2. ABDOMEN: Soft. Bowel tones present. EXTREMITIES: No cyanosis. ASSESSMENT: 1. Sepsis. 2. Pneumonia, possibly aspiration type, secondary to dysphagia and secretion retention. 3. Status post urinary tract infection and bacteremia with culture grew coagulase-negative staph species, repeat blood cultures negative. 4. Status post gastrointestinal bleeding requiring EGD with variceal banding. 5. Cachexia. 6. Ascites, status post thoracentesis. PLAN: The patient remains unchanged. Covered with appropriate antimicrobials. Continue present care, GI recommendations. Anti-aspiration measures. dw staff Problems: Consultation Date/Type/Reason Admit Date/Time May 07, 2016 at 14:39 Initial Consult Date 05/20/16 Type of Consultation: id Referring Provider: KASH OLVERA Exam/Review of Systems Vital Signs Vitals Vital Signs Date Time Temp Pulse Resp B/P Pulse Ox O2 Delivery O2 Flow Rate FiO2 06/22/16 09:30 3.0 06/22/16 08:15 Nasal Cannula 06/22/16 07:56 97.7 90 16 132/70 98 06/20/16 12:36 21 Intake and Output 06/21/16 06/21/16 06/22/16 15:00 23:00 07:00 Intake Total 755 ml 645 ml Output Total 1300 ml 200 ml Balance -545 ml 445 ml Results Result Diagram: 06/22/16 0900 06/22/16 0510 Results 24 hrs Laboratory Tests Test 06/21/16 18:02 06/21/16 18:05 06/21/16 18:45 06/22/16 00:33 Bedside Glucose 115 120 Osmolality 318 H Urine Osmolality 451 Urine Random Creatinine 54.51 Urine Random Sodium 127 H Test 06/22/16 05:10 06/22/16 05:34 06/22/16 09:00 06/22/16 12:07 Alanine Aminotransferase (ALT/SGPT) 40 Albumin 2.2 L Albumin/Globulin Ratio 0.47 Alkaline Phosphatase 172 H Anion Gap 14 Aspartate Amino Transf (AST/SGOT) 54 H Blood Urea Nitrogen 35 H Calcium Level 8.7 Carbon Dioxide Level 24 Chloride Level 115 H Creatinine 1.82 H Direct Bilirubin 0.00 Globulin 4.60 H Glucose Level 104 Indirect Bilirubin 0.3 Potassium Level 3.6 Random Vancomycin Level 13.0 Sodium Level 149 H Total Bilirubin 0.3 Total Protein 6.8 # Bedside Glucose 129 100 Hematocrit 29.8 L Hemoglobin 9.8 L Medications Medications Current Medications Ondansetron HCl (Zofran Inj) 4 mg Q6H PRN IV NAUSEA AND/OR VOMITING; Start 05/07/16 at 19:30 Morphine Sulfate (morphine) 2 mg Q4H PRN IV SEVERE PAIN LEVEL 7-10 Last administered on 06/16/16 08:57; Admin Dose 2 MG; Start 05/07/16 at 19:30 Docusate Sodium (Colace) 100 mg Q12H PRN PO CONSTIPATION Last administered on 21:45; Admin Dose 100 MG; Start 05/07/16 at 19:30 IV Flush (NS 10 ml) 10 ml PRN PRN IV IV PROTOCOL; Start 05/17/16 at 12:00 Diagnostic Test (Pha) (Accucheck) 1 ea Q6 XX Last administered on 06/22/16 17: 28; Admin Dose 1 EA; Start 05/28/16 at 12:00 Lorazepam (Ativan) 1 mg Q8 PRN IV AGITATION/ANXIETY Last administered on 17:44; Admin Dose 1 MG; Start 05/28/16 at 22:00 Clonidine HCl (Catapres-Tts 1 Patch) 1 patch Q7D TRANSDERM Last administered on 06/22/16 15:03; Admin Dose 1 PATCH; Start 06/01/16 at 13:30 Acetaminophen (Tylenol Supp) 650 mg Q6H PRN [place] MILD PAIN/FEVER Last administered on 06/17/16 07:56; Admin Dose 650 MG; Start 06/08/16 at 16:30 Insulin Aspart (Novolog Insulin Pen) NOVOLOG *MILD* ALGORI... Q6 SC Last administered on 06/20/16 17:48; Admin Dose 1 UNIT; Start 06/08/16 at 18:00 Miscellaneous Information 1 ea NOTE XX ; Start 06/08/16 at 18:30 Glucose (Glutose) 15 gm Q15M PRN PO DECREASED GLUCOSE; Start 06/08/16 at 18:30 Glucose (Glutose) 22.5 gm Q15M PRN PO DECREASED GLUCOSE; Start 06/08/16 at 18:30 Dextrose (D50w Syringe) 25 ml Q15M PRN IV DECREASED GLUCOSE; Start 06/08/16 at 18:30 Dextrose (D50w Syringe) 50 ml Q15M PRN IV DECREASED GLUCOSE; Start 06/08/16 at 18:30 Glucagon (Glucagen) 1 mg Q15M PRN IM DECREASED GLUCOSE; Start 06/08/16 at 18:30 Glucose (Glutose) 15 gm Q15M PRN BUCCAL DECREASED GLUCOSE; Start 06/08/16 at 18: 30 Salmeterol Xinafoate/ Fluticasone (Advair 250/50 Diskus) 1 inh BID INH Last administered on 06/22/16 08:29; Admin Dose 1 INH; Start 06/10/16 at 18:30 Levothyroxine Sodium (Synthroid) 50 mcg DAILY@06 PEG Last administered on 05:33; Admin Dose 50 MCG; Start 06/13/16 at 12:00 Chlorhexidine Gluconate (Peridex) 15 ml BID MT Last administered on 06/22/16 08:27; Admin Dose 15 ML; Start 06/14/16 at 21:00 IV Flush (NS 10 ml) 10 ml PRN PRN IV PRN; Start 06/14/16 at 16:00 IV Flush (NS 10 ml) 10 ml PRN PRN IV IV PROTOCOL; Start 06/14/16 at 17:30 Spironolactone (Aldactone) 25 mg DAILY NGT Last administered on 06/22/16 08:28 ; Admin Dose 25 MG; Start 06/15/16 at 11:30 Furosemide (Lasix) 20 mg DAILY GTB Last administered on 06/22/16 08:28; Admin Dose 20 MG; Start 06/15/16 at 11:30 Lactulose 10 gm 10 gm Q6 PEG Last administered on 06/22/16 12:57; Admin Dose 10 GM; Start 06/17/16 at 18:00 Pantoprazole 80 mg/Sodium Chloride 100 ml @ 10 mls/hr Q10H IV Last administered on 06/22/16 11:26; Admin Dose 10 MLS/HR; Start 06/17/16 at 21:30 Meropenem 500 mg/ Sodium Chloride 100 ml @ 200 mls/hr Q12 IVPB Last administered on 06/22/16 08:33; Admin Dose 200 MLS/HR; Start 06/18/16 at 10:30 Dextrose 1,000 ml @ 40 mls/hr Q24H IV Last administered on 06/21/16 18:05; Admin Dose 40 MLS/HR; Start 06/21/16 at 18:00 Vancomycin HCl/ Sodium Chloride (Vancocin/NS) 150 ml @ 75 mls/hr Q36H IVPB Last administered on 06/22/16 11:26; Admin Dose 75 MLS/HR; Start 06/22/16 at 11 :00 SELMA FLORES NP Jun 22, 2016 17:37
[2016-06-22] MEDS: DEXTROSE 5% 1,000 ML IV SCH ×2 (18:00→19:25)
[2016-06-22] MEDS ORDERED: VANCOMYCIN 750 MG in SOD CHLORIDE 0.9% 150 ML IVPB SCH (18:00)
[2016-06-22 19:00] VITALS: BP 123/69; RESP 17
[2016-06-23] MEDS: LACTULOSE 30ML CUP PEG SCH ×3 (00:35→21:31)
[2016-06-23] MEDS: LEVOTHYROXINE 50 MCG TAB PEG SCH (05:58)
[2016-06-23] MEDS: ACCUCHECK XX SCH ×4 (05:59→18:00)
[2016-06-23] MEDS: INSULIN ASPART [NOVOLOG] 3 ML PEN SC SCH ×4 (05:59→17:44)
[2016-06-23 07:43] VITALS: BP 148/79; RESP 16
--- NOTE | 2016-06-23 08:33 | CONS ---
Date/Time of Note Date/Time of Note DATE: 06/23/16 TIME: 08:30 Assessment/Plan Assessment/Plan Additional Assessment/Plan 1. Hematemesis/GI bleeding: stable. - 05/17/2016 EGD: Multiple esophageal ulcers, with no evidence of bleeding. Residual esophageal varices, one of the varices with stigmata of recent bleeding. Post-endoscopic variceal ligation x3. No additional potential sources of bleeding identified. - 05/09/2016 EGD: Grade IV/IV esophageal varices with stigmata of recent bleeding "white plug."Post-endoscopic variceal ligation x4 - 06/18/2016 EGD: Grade III/IV single varix distal esophagus with stigmata of recent bleeding, post-endoscopic variceal ligation. Distal esophagitis. 2. Alcoholic cirrhosis 3. Ascites, not candidate for TI PS procedure secondary to sepsis treatment 4. Encephalopathy, on lactulose every 12 hrs 5. History of EtOH abuse 6. Dysphagia, status post EGD plus PEG Recommendations: 1. transfuse PRN hgb less than 8 2. Continue lactulose 3. Continue other supportive care per primary and other consultants. Poor prognosis 4. Further recommendations depend on clinical course. Patient seen in collaboration with Dr. Ochoa. Consultation Date/Type/Reason Admit Date/Time May 07, 2016 at 14:39 Type of Consultation: Gastroenterology Referring Provider: KASH OLVERA 24 HR Interval Summary Free Text/Dictation Hemoglobin stable Tube feed at 35 with minimal residual Abdomen distended, patient asymptomatic Patient denies abdominal pain, nausea, vomiting Will reduce lactulose to every 12 hours due to hypernatremia Lasix 20 mg now every 12 hours Dietary consult to adjust tube feed with renal formula Exam/Review of Systems Vital Signs Vitals Vital Signs Date Time Temp Pulse Resp B/P Pulse Ox O2 Delivery O2 Flow Rate FiO2 06/23/16 07:43 97.6 89 16 148/79 100 06/23/16 00:48 3.0 06/22/16 20:00 Nasal Cannula 06/20/16 12:36 21 Intake and Output 06/22/16 06/22/16 06/23/16 15:00 23:00 07:00 Intake Total 350 ml 1180 ml Output Total 700 ml 350 ml Balance 350 ml 480 ml -350 ml Exam Constitutional: alert, oriented, well developed (Under nourished/cachectic) Head: atraumatic, normocephalic Neck: non-tender, supple Respiratory: clear to auscultation, normal air movement Cardiovascular: nl pulses, regular rate and rhythm Gastrointestinal: ascites, bowel sounds, distended, firm, non tender, No rebound or guarding Results Result Diagram: 06/22/16 0900 06/22/16 0510 Results 24 hrs Laboratory Tests Test 06/22/16 09:00 06/22/16 12:07 06/22/16 17:23 06/23/16 00:37 Hematocrit 29.8 L Hemoglobin 9.8 L Bedside Glucose 100 126 111 Test 06/23/16 05:58 Bedside Glucose 113 Medications Medications Current Medications Ondansetron HCl (Zofran Inj) 4 mg Q6H PRN IV NAUSEA AND/OR VOMITING; Start 05/07/16 at 19:30 Morphine Sulfate (morphine) 2 mg Q4H PRN IV SEVERE PAIN LEVEL 7-10 Last administered on 06/16/16 08:57; Admin Dose 2 MG; Start 05/07/16 at 19:30 Docusate Sodium (Colace) 100 mg Q12H PRN PO CONSTIPATION Last administered on 21:45; Admin Dose 100 MG; Start 05/07/16 at 19:30 IV Flush (NS 10 ml) 10 ml PRN PRN IV IV PROTOCOL; Start 05/17/16 at 12:00 Diagnostic Test (Pha) (Accucheck) 1 ea Q6 XX Last administered on 06/22/16 17: 28; Admin Dose 1 EA; Start 05/28/16 at 12:00 Lorazepam (Ativan) 1 mg Q8 PRN IV AGITATION/ANXIETY Last administered on 17:44; Admin Dose 1 MG; Start 05/28/16 at 22:00 Clonidine HCl (Catapres-Tts 1 Patch) 1 patch Q7D TRANSDERM Last administered on 06/22/16 15:03; Admin Dose 1 PATCH; Start 06/01/16 at 13:30 Acetaminophen (Tylenol Supp) 650 mg Q6H PRN [place] MILD PAIN/FEVER Last administered on 06/17/16 07:56; Admin Dose 650 MG; Start 06/08/16 at 16:30 Insulin Aspart (Novolog Insulin Pen) NOVOLOG *MILD* ALGORI... Q6 SC Last administered on 06/20/16 17:48; Admin Dose 1 UNIT; Start 06/08/16 at 18:00 Miscellaneous Information 1 ea NOTE XX ; Start 06/08/16 at 18:30 Glucose (Glutose) 15 gm Q15M PRN PO DECREASED GLUCOSE; Start 06/08/16 at 18:30 Glucose (Glutose) 22.5 gm Q15M PRN PO DECREASED GLUCOSE; Start 06/08/16 at 18:30 Dextrose (D50w Syringe) 25 ml Q15M PRN IV DECREASED GLUCOSE; Start 06/08/16 at 18:30 Dextrose (D50w Syringe) 50 ml Q15M PRN IV DECREASED GLUCOSE; Start 06/08/16 at 18:30 Glucagon (Glucagen) 1 mg Q15M PRN IM DECREASED GLUCOSE; Start 06/08/16 at 18:30 Glucose (Glutose) 15 gm Q15M PRN BUCCAL DECREASED GLUCOSE; Start 06/08/16 at 18: 30 Salmeterol Xinafoate/ Fluticasone (Advair 250/50 Diskus) 1 inh BID INH Last administered on 06/22/16 21:27; Admin Dose 1 INH; Start 06/10/16 at 18:30 Levothyroxine Sodium (Synthroid) 50 mcg DAILY@06 PEG Last administered on 05:58; Admin Dose 50 MCG; Start 06/13/16 at 12:00 Chlorhexidine Gluconate (Peridex) 15 ml BID MT Last administered on 06/22/16 21:27; Admin Dose 15 ML; Start 06/14/16 at 21:00 IV Flush (NS 10 ml) 10 ml PRN PRN IV PRN; Start 06/14/16 at 16:00 IV Flush (NS 10 ml) 10 ml PRN PRN IV IV PROTOCOL; Start 06/14/16 at 17:30 Spironolactone (Aldactone) 25 mg DAILY NGT Last administered on 06/22/16 08:28 ; Admin Dose 25 MG; Start 06/15/16 at 11:30 Furosemide (Lasix) 20 mg DAILY GTB Last administered on 06/22/16 08:28; Admin Dose 20 MG; Start 06/15/16 at 11:30 Lactulose 10 gm 10 gm Q6 PEG Last administered on 06/23/16 05:58; Admin Dose 10 GM; Start 06/17/16 at 18:00 Pantoprazole 80 mg/Sodium Chloride 100 ml @ 10 mls/hr Q10H IV Last administered on 06/22/16 22:03; Admin Dose 10 MLS/HR; Start 06/17/16 at 21:30 Meropenem 500 mg/ Sodium Chloride 100 ml @ 200 mls/hr Q12 IVPB Last administered on 06/22/16 21:27; Admin Dose 200 MLS/HR; Start 06/18/16 at 10:30 Dextrose 1,000 ml @ 40 mls/hr Q24H IV Last administered on 06/22/16 19:25; Admin Dose 40 MLS/HR; Start 06/21/16 at 18:00 Vancomycin HCl/ Sodium Chloride (Vancocin/NS) 150 ml @ 75 mls/hr Q36H IVPB Last administered on 06/22/16 11:26; Admin Dose 75 MLS/HR; Start 06/22/16 at 11 :00 GEOVANNI ALMODOVAR Jun 23, 2016 08:33
[2016-06-23] MEDS: PANTOPRAZOLE IV 80 MG in SOD CHLORIDE 0.9% 100 ML IV SCH ×2 (08:54→17:42)
[2016-06-23] MEDS: SALMETEROL/FLUTICASONE 250/50 INHA INH SCH ×2 (08:56→21:31)
[2016-06-23] MEDS: SPIRONOLACTONE 25 MG TAB NGT SCH (08:56)
--- NOTE | 2016-06-23 08:56 | PN ---
Date/Time of Note Date/Time of Note DATE: 06/23/16 TIME: 08:54 Assessment/Plan VTE Prophylaxis VTE Prophylaxis Intervention: contraindicated VTE Contraindication Reason: bleeding Lines/Catheters IV Catheter Type (from Nrsg): PICC Line Central line still needed: Yes Urinary Cath still in place: Yes Reason Cath still needed: urinary retention Assessment/Plan Chief Complaint/Hosp Course Assessment/Plan: 70 M homeless alcoholic who had originally come in with GI bleed 2/2 varices and has had a prolonged and complicated hospitalization now managed as follows: 1. Sepsis: sec to # 2 and # 3, no fevers in last 3-4 days. s/p line holiday / PICC line re-inserted / ID managing abx, appreciate input - continue Meropenem and Vanco, f/u ID rec's (covering for UTI and possible aspiration PNA) 2. Coagulase +staph bacteremia: seen on blood cx's + earlier this admission - f/u repeat blood cx - continue current abx 3. Enterococcus UTI: followed by ID team - has been on Vanco IV for total 14 days = consider d/c abx - if ok with ID. 4. GI bleed : s/p EGD x 3 this admission for bleed on this admission with findings of esophageal varices s/p banding - closely monitor hgb/ GI following / appreciate input - continue PPI IV 5. Encephalopathy + Dysphagia He is now oriented x4, less lethargic, all antipsychotics held d/t severe lethargy 6. S/p Resp failure + ventilator dependence - with more + secretions now, ( was extubated with residual rhonchi and stridor earlier this admission) Continue scheduled bronchodilator therapy / inhaled steroids / continue PRN O2 / gentle diuresis - abx IV 7. Alcoholism with Alcoholic liver cirrhosis causing #5 + coagulopathy. Last paracentesis 06/14/16. Now more distended today. - Continue lactulose / monitor coag profile / intervene PRN - for another paracentesis today. 8. Acute on chronic anemia 2/2 Blood loss +#7 +FTT see above 9. Homelessness: CM working on SNF placement 10. Newly diagnosed Hypothyroidism-on Levothyroxine 11. HTN: controlled on clonidine patch 12. ARF - slightly improved - appreciate renal consult, sec to Prerenal azotemia from Liver disease and sepsis - f/u urine lytes, rec's - cautious IVF's per renal, albumin x 1 today 13. hypernatremia - appreciate renal consult - D5 IVF's at low rate per renal team rec's - check BMP today Dispo Continue PEG feeds Continue supportive care, H/H, sepsis . Problems: Subjective 24 Hr Interval Summary Free Text/Dictation Pt had no acute events overnight. Exam/Review of Systems Vital Signs Vitals Vital Signs Date Time Temp Pulse Resp B/P Pulse Ox O2 Delivery O2 Flow Rate FiO2 06/23/16 07:43 97.6 89 16 148/79 100 06/23/16 00:48 3.0 06/22/16 20:00 Nasal Cannula 06/20/16 12:36 21 Intake and Output 06/22/16 06/22/16 06/23/16 15:00 23:00 07:00 Intake Total 350 ml 1180 ml Output Total 700 ml 350 ml Balance 350 ml 480 ml -350 ml Exam Constitutional: lying in bed, alert, NAD Head: normocephalic Eyes: icteric ENMT: supple Respiratory: slightly less diminished breath sounds Cardiovascular: regular rate and rhythm, No murmurs/extra sounds Gastrointestinal: nL bowel sounds, slightly firm, mod distended today, NT Musculoskeletal: other (severe msc wasting) Neurological: less lethargic Results Result Diagram: 06/22/16 0900 06/22/16 0510 Results 24 hrs Laboratory Tests Test 06/22/16 09:00 06/22/16 12:07 06/22/16 17:23 06/23/16 00:37 Hematocrit 29.8 L Hemoglobin 9.8 L Bedside Glucose 100 126 111 Test 06/23/16 05:58 Bedside Glucose 113 Medications Medications Current Medications Ondansetron HCl (Zofran Inj) 4 mg Q6H PRN IV NAUSEA AND/OR VOMITING; Start 05/07/16 at 19:30 Morphine Sulfate (morphine) 2 mg Q4H PRN IV SEVERE PAIN LEVEL 7-10 Last administered on 06/16/16 08:57; Admin Dose 2 MG; Start 05/07/16 at 19:30 Docusate Sodium (Colace) 100 mg Q12H PRN PO CONSTIPATION Last administered on 21:45; Admin Dose 100 MG; Start 05/07/16 at 19:30 IV Flush (NS 10 ml) 10 ml PRN PRN IV IV PROTOCOL; Start 05/17/16 at 12:00 Diagnostic Test (Pha) (Accucheck) 1 ea Q6 XX Last administered on 06/22/16 17: 28; Admin Dose 1 EA; Start 05/28/16 at 12:00 Lorazepam (Ativan) 1 mg Q8 PRN IV AGITATION/ANXIETY Last administered on 17:44; Admin Dose 1 MG; Start 05/28/16 at 22:00 Clonidine HCl (Catapres-Tts 1 Patch) 1 patch Q7D TRANSDERM Last administered on 06/22/16 15:03; Admin Dose 1 PATCH; Start 06/01/16 at 13:30 Acetaminophen (Tylenol Supp) 650 mg Q6H PRN [place] MILD PAIN/FEVER Last administered on 06/17/16 07:56; Admin Dose 650 MG; Start 06/08/16 at 16:30 Insulin Aspart (Novolog Insulin Pen) NOVOLOG *MILD* ALGORI... Q6 SC Last administered on 06/20/16 17:48; Admin Dose 1 UNIT; Start 06/08/16 at 18:00 Miscellaneous Information 1 ea NOTE XX ; Start 06/08/16 at 18:30 Glucose (Glutose) 15 gm Q15M PRN PO DECREASED GLUCOSE; Start 06/08/16 at 18:30 Glucose (Glutose) 22.5 gm Q15M PRN PO DECREASED GLUCOSE; Start 06/08/16 at 18:30 Dextrose (D50w Syringe) 25 ml Q15M PRN IV DECREASED GLUCOSE; Start 06/08/16 at 18:30 Dextrose (D50w Syringe) 50 ml Q15M PRN IV DECREASED GLUCOSE; Start 06/08/16 at 18:30 Glucagon (Glucagen) 1 mg Q15M PRN IM DECREASED GLUCOSE; Start 06/08/16 at 18:30 Glucose (Glutose) 15 gm Q15M PRN BUCCAL DECREASED GLUCOSE; Start 06/08/16 at 18: 30 Salmeterol Xinafoate/ Fluticasone (Advair 250/50 Diskus) 1 inh BID INH Last administered on 06/22/16 21:27; Admin Dose 1 INH; Start 06/10/16 at 18:30 Levothyroxine Sodium (Synthroid) 50 mcg DAILY@06 PEG Last administered on 05:58; Admin Dose 50 MCG; Start 06/13/16 at 12:00 Chlorhexidine Gluconate (Peridex) 15 ml BID MT Last administered on 06/22/16 21:27; Admin Dose 15 ML; Start 06/14/16 at 21:00 IV Flush (NS 10 ml) 10 ml PRN PRN IV PRN; Start 06/14/16 at 16:00 IV Flush (NS 10 ml) 10 ml PRN PRN IV IV PROTOCOL; Start 06/14/16 at 17:30 Spironolactone (Aldactone) 25 mg DAILY NGT Last administered on 06/22/16 08:28 ; Admin Dose 25 MG; Start 06/15/16 at 11:30 Furosemide (Lasix) 20 mg DAILY GTB Last administered on 06/22/16 08:28; Admin Dose 20 MG; Start 06/15/16 at 11:30 Lactulose 10 gm 10 gm Q6 PEG Last administered on 06/23/16 05:58; Admin Dose 10 GM; Start 06/17/16 at 18:00 Pantoprazole 80 mg/Sodium Chloride 100 ml @ 10 mls/hr Q10H IV Last administered on 06/22/16 22:03; Admin Dose 10 MLS/HR; Start 06/17/16 at 21:30 Meropenem 500 mg/ Sodium Chloride 100 ml @ 200 mls/hr Q12 IVPB Last administered on 06/22/16 21:27; Admin Dose 200 MLS/HR; Start 06/18/16 at 10:30 Dextrose 1,000 ml @ 40 mls/hr Q24H IV Last administered on 06/22/16 19:25; Admin Dose 40 MLS/HR; Start 06/21/16 at 18:00 Vancomycin HCl/ Sodium Chloride (Vancocin/NS) 150 ml @ 75 mls/hr Q36H IVPB Last administered on 06/22/16 11:26; Admin Dose 75 MLS/HR; Start 06/22/16 at 11 :00 ADONIS PARTIDA Jun 23, 2016 08:56
[2016-06-23] MEDS: CHLORHEXIDINE GLUCONATE 15 ML UD CUP MT SCH ×2 (08:58→21:31)
[2016-06-23] MEDS: FUROSEMIDE 20 MG TAB GTB SCH ×2 (09:05→21:32)
[2016-06-23] MEDS: MEROPENEM 500 MG in SOD CHLORIDE 0.9% 100 ML IVPB SCH ×2 (09:21→21:42)
[2016-06-23 10:19] LABS: POTASSIUM 3.4 mmol/L (3.5-5.1)
[2016-06-23 10:22] LABS: CALCIUM 8.6 mg/dl (8.4-10.2); CREATININE 1.6 mg/dl (0.61-1.24)
[2016-06-23] MEDS ORDERED: POTASSIUM CHLORIDE (SR) 20 MEQ TAB PO STA (10:54)
--- NOTE | 2016-06-23 10:55 | CONS ---
Date/Time of Note Date/Time of Note DATE: 06/23/16 TIME: 10:53 Assessment/Plan Assessment/Plan Additional Assessment/Plan 1. MER due to Prerenal azotemia from Liver disease and sepsis 2. Sepsis. 3. Pneumonia, possibly aspiration type, secondary to dysphagia and secretion retention. 4. Status post urinary tract infection and bacteremia with culture grew coagulase-negative staph species, repeat blood cultures negative. 5. Status post gastrointestinal bleeding requiring EGD with variceal banding. 5. Ascites, status post thoracentesis.yeserday Plan: BUN/Cr stable IV abx for sepsis s/p paracentesis on friday KCL 40mEQ PO X 1 dose today will follow up Consultation Date/Type/Reason Admit Date/Time May 07, 2016 at 14:39 Initial Consult Date Type of Consultation: NEPHROLOGY Referring Provider: KASH OLVERA 24 HR Interval Summary Free Text/Dictation doing ok, BP stable Exam/Review of Systems Vital Signs Vitals Vital Signs Date Time Temp Pulse Resp B/P Pulse Ox O2 Delivery O2 Flow Rate FiO2 06/23/16 07:43 97.6 89 16 148/79 100 06/23/16 00:48 3.0 06/22/16 20:00 Nasal Cannula 06/20/16 12:36 21 Intake and Output 06/22/16 06/22/16 06/23/16 14:59 22:59 06:59 Intake Total 350 ml 1180 ml Output Total 700 ml 350 ml Balance 350 ml 480 ml -350 ml Results Result Diagram: 06/22/16 0900 06/23/16 0950 Results 24 hrs Laboratory Tests Test 06/22/16 12:07 06/22/16 17:23 06/23/16 00:37 06/23/16 05:58 Bedside Glucose 100 126 111 113 Test 06/23/16 09:50 Anion Gap 12 Blood Urea Nitrogen 35 H Calcium Level 8.6 Carbon Dioxide Level 25 Chloride Level 110 Creatinine 1.60 H Glucose Level 107 Potassium Level 3.4 L Sodium Level 144 Medications Medications Current Medications Ondansetron HCl (Zofran Inj) 4 mg Q6H PRN IV NAUSEA AND/OR VOMITING; Start 05/07/16 at 19:30 Morphine Sulfate (morphine) 2 mg Q4H PRN IV SEVERE PAIN LEVEL 7-10 Last administered on 06/16/16t 08:57; Admin Dose 2 MG; Start 05/07/16 at 19:30 Docusate Sodium (Colace) 100 mg Q12H PRN PO CONSTIPATION Last administered on 21:45; Admin Dose 100 MG; Start 05/07/16 at 19:30 IV Flush (NS 10 ml) 10 ml PRN PRN IV IV PROTOCOL; Start 05/17/16 at 12:00 Diagnostic Test (Pha) (Accucheck) 1 ea Q6 XX Last administered on 06/22/16 17: 28; Admin Dose 1 EA; Start 05/28/16 at 12:00 Lorazepam (Ativan) 1 mg Q8 PRN IV AGITATION/ANXIETY Last administered on 17:44; Admin Dose 1 MG; Start 05/28/16 at 22:00 Clonidine HCl (Catapres-Tts 1 Patch) 1 patch Q7D TRANSDERM Last administered on 06/22/16 15:03; Admin Dose 1 PATCH; Start 06/01/16 at 13:30 Acetaminophen (Tylenol Supp) 650 mg Q6H PRN [place] MILD PAIN/FEVER Last administered on 06/17/16 07:56; Admin Dose 650 MG; Start 06/08/16 at 16:30 Insulin Aspart (Novolog Insulin Pen) NOVOLOG *MILD* ALGORI... Q6 SC Last administered on 06/20/16 17:48; Admin Dose 1 UNIT; Start 06/08/16 at 18:00 Miscellaneous Information 1 ea NOTE XX ; Start 06/08/16 at 18:30 Glucose (Glutose) 15 gm Q15M PRN PO DECREASED GLUCOSE; Start 06/08/16 at 18:30 Glucose (Glutose) 22.5 gm Q15M PRN PO DECREASED GLUCOSE; Start 06/08/16 at 18:30 Dextrose (D50w Syringe) 25 ml Q15M PRN IV DECREASED GLUCOSE; Start 06/08/16 at 18:30 Dextrose (D50w Syringe) 50 ml Q15M PRN IV DECREASED GLUCOSE; Start 06/08/16 at 18:30 Glucagon (Glucagen) 1 mg Q15M PRN IM DECREASED GLUCOSE; Start 06/08/16 at 18:30 Glucose (Glutose) 15 gm Q15M PRN BUCCAL DECREASED GLUCOSE; Start 06/08/16 at 18: 30 Salmeterol Xinafoate/ Fluticasone (Advair 250/50 Diskus) 1 inh BID INH Last administered on 06/23/16 08:56; Admin Dose 1 INH; Start 06/10/16 at 18:30 Levothyroxine Sodium (Synthroid) 50 mcg DAILY@06 PEG Last administered on 05:58; Admin Dose 50 MCG; Start 06/13/16 at 12:00 Chlorhexidine Gluconate (Peridex) 15 ml BID MT Last administered on 06/23/16 08:58; Admin Dose 15 ML; Start 06/14/16 at 21:00 IV Flush (NS 10 ml) 10 ml PRN PRN IV PRN; Start 06/14/16 at 16:00 IV Flush (NS 10 ml) 10 ml PRN PRN IV IV PROTOCOL; Start 06/14/16 at 17:30 Spironolactone 25 mg 25 mg DAILY NGT Last administered on 06/23/16 08:56; Admin Dose 25 MG; Start 06/15/16 at 11:30 Pantoprazole 80 mg/Sodium Chloride 100 ml @ 10 mls/hr Q10H IV Last administered on 06/23/16 08:54; Admin Dose 10 MLS/HR; Start 06/17/16 at 21:30 Meropenem 500 mg/ Sodium Chloride 100 ml @ 200 mls/hr Q12 IVPB Last administered on 06/23/16 09:21; Admin Dose 200 MLS/HR; Start 06/18/16 at 10:30 Dextrose 1,000 ml @ 40 mls/hr Q24H IV Last administered on 06/22/16 19:25; Admin Dose 40 MLS/HR; Start 06/21/16 at 18:00 Vancomycin HCl/ Sodium Chloride (Vancocin/NS) 150 ml @ 75 mls/hr Q36H IVPB Last administered on 06/22/16 11:26; Admin Dose 75 MLS/HR; Start 06/22/16 at 11 :00 Furosemide (Lasix) 20 mg Q12 GTB Last administered on 06/23/16 09:05; Admin Dose 20 MG; Start 06/23/16 at 09:00 Lactulose (Enulose) 10 gm Q12 PEG ; Start 06/23/16 at 21:00 CIELO ANDRADE MD Jun 23, 2016 10:54
--- NOTE | 2016-06-23 14:51 | CONS ---
Date/Time of Note Date/Time of Note DATE: 06/23/16 TIME: 14:49 Consult Date/Type/Reason Admit Date/Time May 07, 2016 at 14:39 Initial Consult Date 05/20/16 Type of Consultation: ID Ordering Provider: KASH OLVERA Subjective awake, denies pain, no fevers, nad Objective Vital Signs Date Time Temp Pulse Resp B/P Pulse Ox O2 Delivery O2 Flow Rate FiO2 06/23/16 08:00 Nasal Cannula 3.0 06/23/16 07:43 97.6 89 16 148/79 100 06/20/16 12:36 21 Intake and Output 06/22/16 06/22/16 06/23/16 15:00 23:00 07:00 Intake Total 350 ml 1180 ml Output Total 700 ml 350 ml Balance 350 ml 480 ml -350 ml Results/Medications Result Diagram: 06/22/16 0900 06/23/16 0950 Results 24 hrs Laboratory Tests Test 06/22/16 17:23 06/23/16 00:37 06/23/16 05:58 06/23/16 09:50 Bedside Glucose 126 111 113 Anion Gap 12 Blood Urea Nitrogen 35 H Calcium Level 8.6 Carbon Dioxide Level 25 Chloride Level 110 Creatinine 1.60 H Glucose Level 107 Potassium Level 3.4 L Sodium Level 144 Test 06/23/16 11:36 Bedside Glucose 121 Medications Current Medications Ondansetron HCl (Zofran Inj) 4 mg Q6H PRN IV NAUSEA AND/OR VOMITING; Start 05/07/16 at 19:30 Morphine Sulfate (morphine) 2 mg Q4H PRN IV SEVERE PAIN LEVEL 7-10 Last administered on 06/16/16 08:57; Admin Dose 2 MG; Start 05/07/16 at 19:30 Docusate Sodium (Colace) 100 mg Q12H PRN PO CONSTIPATION Last administered on 21:45; Admin Dose 100 MG; Start 05/07/16 at 19:30 IV Flush (NS 10 ml) 10 ml PRN PRN IV IV PROTOCOL; Start 05/17/16 at 12:00 Diagnostic Test (Pha) (Accucheck) 1 ea Q6 XX Last administered on 06/22/16 17: 28; Admin Dose 1 EA; Start 05/28/16 at 12:00 Lorazepam (Ativan) 1 mg Q8 PRN IV AGITATION/ANXIETY Last administered on 17:44; Admin Dose 1 MG; Start 05/28/16 at 22:00 Clonidine HCl (Catapres-Tts 1 Patch) 1 patch Q7D TRANSDERM Last administered on 06/22/16 15:03; Admin Dose 1 PATCH; Start 06/01/16 at 13:30 Acetaminophen (Tylenol Supp) 650 mg Q6H PRN [place] MILD PAIN/FEVER Last administered on 06/17/16 07:56; Admin Dose 650 MG; Start 06/08/16 at 16:30 Insulin Aspart (Novolog Insulin Pen) NOVOLOG *MILD* ALGORI... Q6 SC Last administered on 06/20/16 17:48; Admin Dose 1 UNIT; Start 06/08/16 at 18:00 Miscellaneous Information 1 ea NOTE XX ; Start 06/08/16 at 18:30 Glucose (Glutose) 15 gm Q15M PRN PO DECREASED GLUCOSE; Start 06/08/16 at 18:30 Glucose (Glutose) 22.5 gm Q15M PRN PO DECREASED GLUCOSE; Start 06/08/16 at 18:30 Dextrose (D50w Syringe) 25 ml Q15M PRN IV DECREASED GLUCOSE; Start 06/08/16 at 18:30 Dextrose (D50w Syringe) 50 ml Q15M PRN IV DECREASED GLUCOSE; Start 06/08/16 at 18:30 Glucagon (Glucagen) 1 mg Q15M PRN IM DECREASED GLUCOSE; Start 06/08/16 at 18:30 Glucose (Glutose) 15 gm Q15M PRN BUCCAL DECREASED GLUCOSE; Start 06/08/16 at 18: 30 Salmeterol Xinafoate/ Fluticasone (Advair 250/50 Diskus) 1 inh BID INH Last administered on 06/23/16 08:56; Admin Dose 1 INH; Start 06/10/16 at 18:30 Levothyroxine Sodium (Synthroid) 50 mcg DAILY@06 PEG Last administered on 05:58; Admin Dose 50 MCG; Start 06/13/16 at 12:00 Chlorhexidine Gluconate (Peridex) 15 ml BID MT Last administered on 06/23/16 08:58; Admin Dose 15 ML; Start 06/14/16 at 21:00 IV Flush (NS 10 ml) 10 ml PRN PRN IV PRN; Start 06/14/16 at 16:00 IV Flush (NS 10 ml) 10 ml PRN PRN IV IV PROTOCOL; Start 06/14/16 at 17:30 Spironolactone 25 mg 25 mg DAILY NGT Last administered on 06/23/16 08:56; Admin Dose 25 MG; Start 06/15/16 at 11:30 Pantoprazole 80 mg/Sodium Chloride 100 ml @ 10 mls/hr Q10H IV Last administered on 06/23/16 08:54; Admin Dose 10 MLS/HR; Start 06/17/16 at 21:30 Meropenem 500 mg/ Sodium Chloride 100 ml @ 200 mls/hr Q12 IVPB Last administered on 06/23/16 09:21; Admin Dose 200 MLS/HR; Start 06/18/16 at 10:30 Dextrose 1,000 ml @ 40 mls/hr Q24H IV Last administered on 06/22/16 19:25; Admin Dose 40 MLS/HR; Start 06/21/16 at 18:00 Vancomycin HCl/ Sodium Chloride (Vancocin/NS) 150 ml @ 75 mls/hr Q36H IVPB Last administered on 06/22/16 11:26; Admin Dose 75 MLS/HR; Start 06/22/16 at 11 :00 Furosemide (Lasix) 20 mg Q12 GTB Last administered on 06/23/16 09:05; Admin Dose 20 MG; Start 06/23/16 at 09:00 Lactulose (Enulose) 10 gm Q12 PEG ; Start 06/23/16 at 21:00 Assessment/Plan Chief Complaint/Hosp Course INDWELLINGS: PICC line placed on June 14, CARLOS Styles. ANTIMICROBIALS: 1. Vancomycin. 2. Meropenem. PHYSICAL EXAMINATION: GENERAL: This is a cachectic chronically ill-appearing, elderly man who is in no distress. HEENT: Head atraumatic, normocephalic. Sclerae anicteric. Buccal mucosa dry. NECK: Supple, trachea midline. CHEST: Rise symmetrical. Breath sounds diminished to bases. HEART: S1, S2. ABDOMEN: Soft. Bowel tones present. EXTREMITIES: No cyanosis. ASSESSMENT: 1. Sepsis. 2. Pneumonia, possibly aspiration type, secondary to dysphagia and secretion retention. 3. Status post urinary tract infection and bacteremia with culture grew coagulase-negative staph species, repeat blood cultures negative. 4. Status post gastrointestinal bleeding requiring EGD with variceal banding. 5. Cachexia. 6. Ascites, status post thoracentesis. PLAN: The patient remains stable. Covered with appropriate antimicrobials. Will repeat cxr in am, Continue present care dw staff Problems: SELMA FLORES NP Jun 23, 2016 14:50
[2016-06-23] MEDS: DEXTROSE 5% 1,000 ML IV SCH ×2 (18:00→21:43)
[2016-06-23 19:17] VITALS: BP 130/72; RESP 18
[2016-06-23] MEDS: VANCOMYCIN 750 MG in SOD CHLORIDE 0.9% 150 ML IVPB SCH (22:31)
[2016-06-24] MEDS: ACCUCHECK XX SCH ×4 (00:12→17:40)
[2016-06-24] MEDS: PANTOPRAZOLE IV 80 MG in SOD CHLORIDE 0.9% 100 ML IV SCH ×2 (04:07→13:30)
[2016-06-24] MEDS: LEVOTHYROXINE 50 MCG TAB PEG SCH (05:37)
[2016-06-24] MEDS: INSULIN ASPART [NOVOLOG] 3 ML PEN SC SCH ×4 (05:37→17:40)
[2016-06-24] MEDS: LACTULOSE 30ML CUP PEG SCH (08:41)
[2016-06-24] MEDS: CHLORHEXIDINE GLUCONATE 15 ML UD CUP MT SCH (08:42)
[2016-06-24] MEDS: SPIRONOLACTONE 25 MG TAB NGT SCH (08:42)
[2016-06-24 08:46] VITALS: BP 139/79; RESP 18
[2016-06-24] MEDS: FUROSEMIDE 20 MG TAB GTB SCH (08:48)
[2016-06-24] MEDS: SALMETEROL/FLUTICASONE 250/50 INHA INH SCH (08:49)
[2016-06-24] MEDS: MEROPENEM 500 MG in SOD CHLORIDE 0.9% 100 ML IVPB SCH (08:59)
[2016-06-24 09:44] LABS: BASOPHIL # 0.1 10^3/ul (0.0-0.1); BASOPHILS % 0.8 % (0.0-2.0); EOSINOPHILS # 0.3 10^3/ul (0.0-0.5); EOSINOPHILS % 2.9 % (0.0-7.0); HEMATOCRIT 29.2 % (42.0-52.0); HEMOGLOBIN 9.9 g/dl (14.0-18.0); LYMPHOCYTES # 1.4 10^3/ul (0.8-2.9); LYMPHOCYTES % 15.1 % (15.0-51.0); MEAN CORPUSCULAR HEMOGLOBIN 29.1 pg (29.0-33.0); MEAN CORPUSCULAR HGB CONC 33.8 g/dl (32.0-37.0); MEAN CORPUSCULAR VOLUME 86.3 fl (82.0-101.0); MEAN PLATELET VOLUME 9.3 fl (7.4-10.4); MONOCYTE # 0.7 10^3/ul (0.3-0.9); MONOCYTES % 7.5 % (0.0-11.0); NEUTROPHIL # 6.8 10^3/ul (1.6-7.5); NEUTROPHILS % 73.7 % (39.0-77.0); PLATELET COUNT 242 10^3/UL (140-440); RED BLOOD COUNT 3.38 10^6/ul (4.70-6.10); RED CELL DISTRIBUTION WIDTH 17.2 % (11.5-14.5); UNCORRECTED WBC 9.2 10^3/ul (4.8-10.8); WHITE BLOOD COUNT 9.2 10^3/ul (4.8-10.8)
[2016-06-24 09:46] LABS: ALBUMIN 2.4 g/dl (3.3-4.9); POTASSIUM 3.9 mmol/L (3.5-5.1)
[2016-06-24 09:49] LABS: ALBUMIN/GLOBULIN RATIO 0.53; BILIRUBIN,INDIRECT 0.2 mg/dl (0-1.1); BILIRUBIN,TOTAL 0.2 mg/dl (0.2-1.3); CREATININE 1.53 mg/dl (0.61-1.24); TOTAL PROTEIN 6.9 g/dl (6.1-8.1)
[2016-06-24 09:50] LABS: CALCIUM 8.4 mg/dl (8.4-10.2)
[2016-06-24 10:16] LABS: CONDITION 1
[2016-06-24 10:17] LABS: LH ANALYZER COMMENTS 1
--- NOTE | 2016-06-24 10:41 | PDOCDIS ---
Discharge Instructions DIAGNOSIS Discharge Diagnosis: Liver Cirrhosis / GI bleed / Severe Debility /Dysphagia CONDITION Patient Condition: Stable HOME CARE INSTRUCTIONS: Special Diet: G TUBE FEEDING - Novasource goal of 30cc/hr . hold for residuals of 100 cc ACTIVITY: Activity Restrictions: Slowly Increase Activity Rest between Activity Activity Restrictions Comment: Needs aggressive Rehab OTHER ORDERS: Other Orders: Continue PT / OT / KASH FELIPE Jun 24, 2016 10:41
[2016-06-24] MEDS ORDERED: ADV25050 INH (10:47)
[2016-06-24] MEDS ORDERED: ALDS NGT (10:47)
[2016-06-24] MEDS ORDERED: CHLO473M4 MT (10:47)
[2016-06-24] MEDS ORDERED: DOCU-144 PO (10:47)
[2016-06-24] MEDS ORDERED: LAS20 GTB (10:47)
[2016-06-24] MEDS ORDERED: ALBU2.5V3 HHN (10:47)
[2016-06-24] MEDS ORDERED: LACT20SO12 PEG (10:47)
[2016-06-24] MEDS ORDERED: LEVO50TA83 PEG (10:47)
[2016-06-24] MEDS ORDERED: PANT40TA3 PEG (10:47)
[2016-06-24] MEDS ORDERED: CATTTS1 TRANSDERM (10:48)
[2016-06-24] MEDS ORDERED: PROP10TA6 PO (10:48)
--- NOTE | 2016-06-24 16:30 | CONS ---
Date/Time of Note Date/Time of Note DATE: 06/24/16 TIME: 16:28 Assessment/Plan Assessment/Plan Chief Complaint/Hosp Course 1. MER due to Prerenal azotemia 2. Sepsis. 3. Pneumonia, possibly aspiration type, secondary to dysphagia and secretion retention. 4. Status post urinary tract infection and bacteremia with culture grew coagulase-negative staph species, repeat blood cultures negative. 5. Status post gastrointestinal bleeding requiring EGD with variceal banding. 5. Ascites, status post thoracentesis.yeserday plan ck bmp Problems: Consultation Date/Type/Reason Admit Date/Time May 07, 2016 at 14:39 Initial Consult Date 05/20/16 Type of Consultation: renal Referring Provider: KASH OLVERA 24 HR Interval Summary Constitutional: no complaints Exam/Review of Systems Vital Signs Vitals Vital Signs Date Time Temp Pulse Resp B/P Pulse Ox O2 Delivery O2 Flow Rate FiO2 06/24/16 08:46 97.8 18 18 139/79 96 06/24/16 08:00 Nasal Cannula 3.0 06/20/16 12:36 21 Intake and Output 06/23/16 06/23/16 06/24/16 15:00 23:00 07:00 Intake Total 100 ml 1680 ml 950 ml Output Total 700 ml 600 ml Balance 100 ml 980 ml 350 ml Exam Cardiovascular: regular rate and rhythm Gastrointestinal: soft Musculoskeletal: nl extremities to inspection Extremities: normal pulses Results Result Diagram: 06/24/16 0900 06/24/16 0900 Results 24 hrs Laboratory Tests Test 06/23/16 17:39 06/24/16 00:11 06/24/16 05:36 06/24/16 09:00 Bedside Glucose 114 112 110 Alanine Aminotransferase (ALT/SGPT) 47 Albumin 2.4 L Albumin/Globulin Ratio 0.53 Alkaline Phosphatase 205 H Anion Gap 14 Aspartate Amino Transf (AST/SGOT) 72 H Basophils # 0.1 Basophils % 0.8 Blood Morphology Comment Blood Urea Nitrogen 33 H Calcium Level 8.4 Carbon Dioxide Level 23 Chloride Level 106 Creatinine 1.53 H Direct Bilirubin 0.00 Eosinophils # 0.3 Eosinophils % 2.9 Globulin 4.50 H Glucose Level 105 Hematocrit 29.2 L Hemoglobin 9.9 L Indirect Bilirubin 0.2 Lymphocytes # 1.4 Lymphocytes % 15.1 Mean Corpuscular Hemoglobin 29.1 Mean Corpuscular Hemoglobin Concent 33.8 Mean Corpuscular Volume 86.3 Mean Platelet Volume 9.3 Monocytes # 0.7 Monocytes % 7.5 Neutrophils # 6.8 Neutrophils % 73.7 Nucleated Red Blood Cells # 0.0 Nucleated Red Blood Cells % 0.0 Platelet Count 242 Potassium Level 3.9 Red Blood Count 3.38 L Red Cell Distribution Width 17.2 H Sodium Level 139 Total Bilirubin 0.2 Total Protein 6.9 White Blood Count 9.2 # Test 06/24/16 12:10 Bedside Glucose 115 Medications Medications Current Medications Ondansetron HCl (Zofran Inj) 4 mg Q6H PRN IV NAUSEA AND/OR VOMITING; Start 05/07/16 at 19:30 Morphine Sulfate (morphine) 2 mg Q4H PRN IV SEVERE PAIN LEVEL 7-10 Last administered on 06/16/16 08:57; Admin Dose 2 MG; Start 05/07/16 at 19:30 Docusate Sodium (Colace) 100 mg Q12H PRN PO CONSTIPATION Last administered on 21:45; Admin Dose 100 MG; Start 05/07/16 at 19:30 IV Flush (NS 10 ml) 10 ml PRN PRN IV IV PROTOCOL; Start 05/17/16 at 12:00 Diagnostic Test (Pha) (Accucheck) 1 ea Q6 XX Last administered on 06/24/16 05: 37; Admin Dose 1 EA; Start 05/28/16 at 12:00 Lorazepam (Ativan) 1 mg Q8 PRN IV AGITATION/ANXIETY Last administered on 17:44; Admin Dose 1 MG; Start 05/28/16 at 22:00 Clonidine HCl (Catapres-Tts 1 Patch) 1 patch Q7D TRANSDERM Last administered on 06/22/16 15:03; Admin Dose 1 PATCH; Start 06/01/16 at 13:30 Acetaminophen (Tylenol Supp) 650 mg Q6H PRN [place] MILD PAIN/FEVER Last administered on 06/17/16 07:56; Admin Dose 650 MG; Start 06/08/16 at 16:30 Insulin Aspart (Novolog Insulin Pen) NOVOLOG *MILD* ALGORI... Q6 SC Last administered on 06/20/16 17:48; Admin Dose 1 UNIT; Start 06/08/16 at 18:00 Miscellaneous Information 1 ea NOTE XX ; Start 06/08/16 at 18:30 Glucose (Glutose) 15 gm Q15M PRN PO DECREASED GLUCOSE; Start 06/08/16 at 18:30 Glucose (Glutose) 22.5 gm Q15M PRN PO DECREASED GLUCOSE; Start 06/08/16 at 18:30 Dextrose (D50w Syringe) 25 ml Q15M PRN IV DECREASED GLUCOSE; Start 06/08/16 at 18:30 Dextrose (D50w Syringe) 50 ml Q15M PRN IV DECREASED GLUCOSE; Start 06/08/16 at 18:30 Glucagon (Glucagen) 1 mg Q15M PRN IM DECREASED GLUCOSE; Start 06/08/16 at 18:30 Glucose (Glutose) 15 gm Q15M PRN BUCCAL DECREASED GLUCOSE; Start 06/08/16 at 18: 30 Salmeterol Xinafoate/ Fluticasone (Advair 250/50 Diskus) 1 inh BID INH Last administered on 06/24/16 08:49; Admin Dose 1 INH; Start 06/10/16 at 18:30 Levothyroxine Sodium (Synthroid) 50 mcg DAILY@06 PEG Last administered on 05:37; Admin Dose 50 MCG; Start 06/13/16 at 12:00 Chlorhexidine Gluconate (Peridex) 15 ml BID MT Last administered on 06/24/16 08:42; Admin Dose 15 ML; Start 06/14/16 at 21:00 IV Flush (NS 10 ml) 10 ml PRN PRN IV PRN; Start 06/14/16 at 16:00 IV Flush (NS 10 ml) 10 ml PRN PRN IV IV PROTOCOL; Start 06/14/16 at 17:30 Spironolactone 25 mg 25 mg DAILY NGT Last administered on 06/24/16 08:42; Admin Dose 25 MG; Start 06/15/16 at 11:30 Pantoprazole 80 mg/Sodium Chloride 100 ml @ 10 mls/hr Q10H IV Last administered on 06/24/16 04:07; Admin Dose 10 MLS/HR; Start 06/17/16 at 21:30 Meropenem 500 mg/ Sodium Chloride 100 ml @ 200 mls/hr Q12 IVPB Last administered on 06/24/16 08:59; Admin Dose 200 MLS/HR; Start 06/18/16 at 10:30 Dextrose (D5W) 1,000 ml @ 40 mls/hr Q24H IV Last administered on 06/23/16 21: 43; Admin Dose 40 MLS/HR; Start 06/21/16 at 18:00 Furosemide (Lasix) 20 mg Q12 GTB Last administered on 06/24/16 08:48; Admin Dose 20 MG; Start 06/23/16 at 09:00 Lactulose (Enulose) 10 gm Q12 PEG Last administered on 06/24/16 08:41; Admin Dose 10 GM; Start 06/23/16 at 21:00 CAESAR MONSIVAIS MD Jun 24, 2016 16:30
--- NOTE | 2016-06-24 16:55 | CONS ---
Date/Time of Note Date/Time of Note DATE: 06/24/16 TIME: 16:54 Assessment/Plan Assessment/Plan Chief Complaint/Hosp Course Awake, looks comfortable, no fevers, nad INDWELLINGS: PICC line placed on June 14, CARLOS Styles. ANTIMICROBIALS: 1. Vancomycin. 2. Meropenem. PHYSICAL EXAMINATION: GENERAL: This is a cachectic chronically ill-appearing, elderly man who is in no distress. HEENT: Head atraumatic, normocephalic. Sclerae anicteric. Buccal mucosa dry. NECK: Supple, trachea midline. CHEST: Rise symmetrical. Breath sounds diminished to bases. HEART: S1, S2. ABDOMEN: Soft. Bowel tones present. EXTREMITIES: No cyanosis. ASSESSMENT: 1. S/p sepsis. 2. Pneumonia, possibly aspiration type, secondary to dysphagia and secretion retention. 3. Status post urinary tract infection and bacteremia with culture grew coagulase-negative staph species, repeat blood cultures negative. 4. Status post gastrointestinal bleeding requiring EGD with variceal banding. 5. Cachexia. 6. Ascites, status post thoracentesis. PLAN: The patient remains stable. Completing abx, continue anti-aspiration precautions, pending dc planning Dw staff Problems: Consultation Date/Type/Reason Admit Date/Time May 07, 2016 at 14:39 Initial Consult Date 05/20/16 Type of Consultation: id Referring Provider: KASH OLVERA Exam/Review of Systems Vital Signs Vitals Vital Signs Date Time Temp Pulse Resp B/P Pulse Ox O2 Delivery O2 Flow Rate FiO2 06/24/16 08:46 97.8 18 18 139/79 96 06/24/16 08:00 Nasal Cannula 3.0 06/20/16 12:36 21 Intake and Output 06/23/16 06/23/16 06/24/16 15:00 23:00 07:00 Intake Total 100 ml 1680 ml 950 ml Output Total 700 ml 600 ml Balance 100 ml 980 ml 350 ml Results Result Diagram: 06/24/16 0900 06/24/16 0900 Results 24 hrs Laboratory Tests Test 06/23/16 17:39 06/24/16 00:11 06/24/16 05:36 06/24/16 09:00 Bedside Glucose 114 112 110 Alanine Aminotransferase (ALT/SGPT) 47 Albumin 2.4 L Albumin/Globulin Ratio 0.53 Alkaline Phosphatase 205 H Anion Gap 14 Aspartate Amino Transf (AST/SGOT) 72 H Basophils # 0.1 Basophils % 0.8 Blood Morphology Comment Blood Urea Nitrogen 33 H Calcium Level 8.4 Carbon Dioxide Level 23 Chloride Level 106 Creatinine 1.53 H Direct Bilirubin 0.00 Eosinophils # 0.3 Eosinophils % 2.9 Globulin 4.50 H Glucose Level 105 Hematocrit 29.2 L Hemoglobin 9.9 L Indirect Bilirubin 0.2 Lymphocytes # 1.4 Lymphocytes % 15.1 Mean Corpuscular Hemoglobin 29.1 Mean Corpuscular Hemoglobin Concent 33.8 Mean Corpuscular Volume 86.3 Mean Platelet Volume 9.3 Monocytes # 0.7 Monocytes % 7.5 Neutrophils # 6.8 Neutrophils % 73.7 Nucleated Red Blood Cells # 0.0 Nucleated Red Blood Cells % 0.0 Platelet Count 242 Potassium Level 3.9 Red Blood Count 3.38 L Red Cell Distribution Width 17.2 H Sodium Level 139 Total Bilirubin 0.2 Total Protein 6.9 White Blood Count 9.2 # Test 06/24/16 12:10 Bedside Glucose 115 Medications Medications Current Medications Ondansetron HCl (Zofran Inj) 4 mg Q6H PRN IV NAUSEA AND/OR VOMITING; Start 05/07/16 at 19:30 Morphine Sulfate (morphine) 2 mg Q4H PRN IV SEVERE PAIN LEVEL 7-10 Last administered on 06/16/16 08:57; Admin Dose 2 MG; Start 05/07/16 at 19:30 Docusate Sodium (Colace) 100 mg Q12H PRN PO CONSTIPATION Last administered on 21:45; Admin Dose 100 MG; Start 05/07/16 at 19:30 IV Flush (NS 10 ml) 10 ml PRN PRN IV IV PROTOCOL; Start 05/17/16 at 12:00 Diagnostic Test (Pha) (Accucheck) 1 ea Q6 XX Last administered on 06/24/16 05: 37; Admin Dose 1 EA; Start 05/28/16 at 12:00 Lorazepam (Ativan) 1 mg Q8 PRN IV AGITATION/ANXIETY Last administered on 17:44; Admin Dose 1 MG; Start 05/28/16 at 22:00 Clonidine HCl (Catapres-Tts 1 Patch) 1 patch Q7D TRANSDERM Last administered on 1/21/17at 15:03; Admin Dose 1 PATCH; Start 06/01/16 at 13:30 Acetaminophen (Tylenol Supp) 650 mg Q6H PRN LA MILD PAIN/FEVER Last administered on 06/17/16 07:56; Admin Dose 650 MG; Start 06/08/16 at 16:30 Insulin Aspart (Novolog Insulin Pen) NOVOLOG *MILD* ALGORI... Q6 SC Last administered on 06/20/16 17:48; Admin Dose 1 UNIT; Start 06/08/16 at 18:00 Miscellaneous Information 1 ea NOTE XX ; Start 06/08/16 at 18:30 Glucose (Glutose) 15 gm Q15M PRN PO DECREASED GLUCOSE; Start 06/08/16 at 18:30 Glucose (Glutose) 22.5 gm Q15M PRN PO DECREASED GLUCOSE; Start 06/08/16 at 18:30 Dextrose (D50w Syringe) 25 ml Q15M PRN IV DECREASED GLUCOSE; Start 06/08/16 at 18:30 Dextrose (D50w Syringe) 50 ml Q15M PRN IV DECREASED GLUCOSE; Start 06/08/16 at 18:30 Glucagon (Glucagen) 1 mg Q15M PRN IM DECREASED GLUCOSE; Start 06/08/16 at 18:30 Glucose (Glutose) 15 gm Q15M PRN BUCCAL DECREASED GLUCOSE; Start 06/08/16 at 18: 30 Salmeterol Xinafoate/ Fluticasone (Advair 250/50 Diskus) 1 inh BID INH Last administered on 06/24/16 08:49; Admin Dose 1 INH; Start 06/10/16 at 18:30 Levothyroxine Sodium (Synthroid) 50 mcg DAILY@06 PEG Last administered on 05:37; Admin Dose 50 MCG; Start 06/13/16 at 12:00 Chlorhexidine Gluconate (Peridex) 15 ml BID MT Last administered on 06/24/16 08:42; Admin Dose 15 ML; Start 06/14/16 at 21:00 IV Flush (NS 10 ml) 10 ml PRN PRN IV PRN; Start 06/14/16 at 16:00 IV Flush (NS 10 ml) 10 ml PRN PRN IV IV PROTOCOL; Start 06/14/16 at 17:30 Spironolactone 25 mg 25 mg DAILY NGT Last administered on 06/24/16 08:42; Admin Dose 25 MG; Start 06/15/16 at 11:30 Pantoprazole 80 mg/Sodium Chloride 100 ml @ 10 mls/hr Q10H IV Last administered on 06/24/16 04:07; Admin Dose 10 MLS/HR; Start 06/17/16 at 21:30 Meropenem 500 mg/ Sodium Chloride 100 ml @ 200 mls/hr Q12 IVPB Last administered on 06/24/16 08:59; Admin Dose 200 MLS/HR; Start 06/18/16 at 10:30 Dextrose (D5W) 1,000 ml @ 40 mls/hr Q24H IV Last administered on 06/23/16 21: 43; Admin Dose 40 MLS/HR; Start 06/21/16 at 18:00 Furosemide (Lasix) 20 mg Q12 GTB Last administered on 06/24/16 08:48; Admin Dose 20 MG; Start 06/23/16 at 09:00 Lactulose (Enulose) 10 gm Q12 PEG Last administered on 06/24/16 08:41; Admin Dose 10 GM; Start 06/23/16 at 21:00 SELMA FLORES NP Jun 24, 2016 16:55
--- NOTE | 2016-06-25 06:15 | DS ---
DATE OF ADMISSION: 05/07/2016 DATE OF DISCHARGE: 06/24/2016 PRESENTING COMPLAINT: Upper GI bleed ADMISSION DIAGNOSES: 1. Upper gastrointestinal bleed, possibly secondary to esophageal varices versus gastric ulcer. 2. Acute on chronic anemia secondary to upper gastrointestinal bleed. 3. Alcohol abuse. 4. Homelessness. FINAL DIAGNOSES: 1. Gastrointestinal bleed, status post multiple episodes secondary to esophageal varices as well as esophageal ulcers status post endoscopic variceal ligation on 3 separate episodes on this admission . The patient had 3 episodes of upper endoscopy during his hospitalization for upper gastrointestin al bleeding. The last endoscopic procedure was 06/18/2016, and grade III single varix in the distal esophagus was noted, and it was ligated. The patient is stable now on propranolol therapy, PPI the rapy b.i.d., as well as Carafate therapy. 2. Alcoholic liver cirrhosis secondary to alcohol abuse causing #1. 3. Acute renal insufficiency, likely secondary to acute tubular necrosis from liver disease and sep sis as well as probably vancomycin associated that is currently improving. The patient seems to be in recovery phase at this time. 4. Newly diagnosed hypothyroidism on Synthroid. 5. Recurrent ascites secondary to chronic liver cirrhosis requiring repeated paracentesis at multip le times during this hospitalization. 6. Chronic encephalopathy likely secondary to alcohol withdrawal that has now resolved. 7. Severe debility secondary to chronic alcohol use superimposed by prolonged hospitalization as we ll as multiple comorbidities. COMPLICATIONS: The patient's hospitalization was complicated by the followin. Severe sepsis secondary to enterococcus UTI at one point and also secondary to Staphylococcus ba cteremia at another point and secondary to infected PICC line as well at one point. 2. The patient's hospitalization was also complicated by respiratory failure for which he was venti lator dependent for a while but now has been completely weaned off respiration. 3. Active at this time, just recently treated aspiration pneumonia. 4. Severe dysphagia for which the patient failed multiple swallow evaluations and is now status pos t PEG tube placement and is currently tolerating PEG tube feeds; however, he continue with speech th erapy. 5. Social issues. The patient was a homeless alcoholic prior to hospitalization and has at this ti me been [facility]. 6. High blood pressure that is currently controlled. CONSULTANTS ON THE CASE: Dr. Mariana Ochoa for GI, Dr. Gerry Castro for gastroenterology, Dr. Bree Mcnamara for infectious disease, physical therapy, speech therapy, behavioral health case manager, Dr. Eliel mabry for pulmonary, and Dr. Em Barnes for hematology. HOSPITAL COURSE: The full details are available in chart for review. This patient had a prolonged hospitalization spending almost 2 months in the hospital after he had presented with an upper GI ble ed, and the problems he was managed for are summarized above. His hospitalization was prolonged bec ause of the fact that he was homeless and had no insurance, and so we had to obtain ____ for the pat ient and also after that find him placement. His hospitalization was complicated by multiple comorb idities as summarized above, and he did have episodes of recurrent upper GI bleed which almost alway s warranted an endoscopy and banding of varices. At this time, however, he has been stable. We hav e obtained placement for him. Also, due to his chronic cirrhosis, he kept having recurrent ascites, and he required recurrent paracentesis while in house. For imaging findings and details of procedu res, please review his chart. At this time, he has been assessed by myself today and remains in sta ble condition for discharge and has been cleared from all standpoints for outpatient followup and co ntinued care. DISCHARGE MEDICATIONS 1. Albuterol nebulizer every 2 hours p.r.n. 2. Peridex mouthwash b.i.d. 3. Catapres patch 1 patch weekly. 4. Colace 100 p.o. q. 12. 5. Lasix 20 q. 12. 6. Lactulose 10 grams q. 12. 7. Levothyroxine 50 mcg via PEG daily. 8. Protonix 40 mg via PEG daily. 9. Propranolol 10 mg t.i.d. 10. Advair 250/50 inhalation b.i.d. 11. Aldactone 25 mg via NG tube daily. Further care will be per his assigned physician at the [facility] facility. He is currently on Novasource with a goal of 30 mL per hour with 100 mL of free water flushes every 6 hours. Our idalia mmendation is that the patient continues aggressive physical and speech therapy. Hopefully, he can regain his strength. From a medical standpoint, the patient remained stable for discharge. For fur ther questions and information, please review his chart. Overall time spent on discharge planning has been more than 45 minutes. Dictated By: KASH OLVERA MD BA/NTS Conf#: [id number] DID#: [id number]
== END 2016-06-24 17:50 | DRG 432 ==
LOC: E/R 11:25 → TEL 14:39 → PP2 05-09 17:12 → MS4 05-17 09:04 → ICU 05-17 09:54 → PP2 05-29 14:44 → MS4 05-29 21:55 → PP2 06-03 20:40 → TEL 06-17 19:18 → ICU 06-17 20:05 → MS2 06-19 16:18
PROVIDERS: ADMIT Family Medicine; ATTEND Family Medicine
PROC: 06L34CZ Occlusion of Esophageal Vein with Extraluminal Device, Percutaneous Endoscopic Approach (ICD-10-PCS; principal; 2016-05-08 19:00)
PROC: 5A1955Z Respiratory Ventilation, Greater than 96 Consecutive Hours (ICD-10-PCS; 2016-05-17)
PROC: 02HV33Z Insertion of Infusion Device into Superior Vena Cava, Percutaneous Approach (ICD-10-PCS; 2016-05-17)
PROC: 0BH17EZ Insertion of Endotracheal Airway into Trachea, Via Natural or Artificial Opening (ICD-10-PCS; 2016-05-17)
PROC: 06L34CZ Occlusion of Esophageal Vein with Extraluminal Device, Percutaneous Endoscopic Approach (ICD-10-PCS; 2016-05-17)
PROC: 06L34CZ Occlusion of Esophageal Vein with Extraluminal Device, Percutaneous Endoscopic Approach (ICD-10-PCS; 2016-06-12)
PROC: 02HV33Z Insertion of Infusion Device into Superior Vena Cava, Percutaneous Approach (ICD-10-PCS; 2016-06-14)
PROC: 0W9G3ZZ Drainage of Peritoneal Cavity, Percutaneous Approach (ICD-10-PCS; 2016-06-15)
PROC: 0DH63UZ Insertion of Feeding Device into Stomach, Percutaneous Approach (ICD-10-PCS; 2016-06-18)
DX: K70.31 Alcoholic cirrhosis of liver with ascites (principal); J96.00 Acute respiratory failure, unspecified whether with hypoxia or hypercapnia; A41.01 Sepsis due to Methicillin susceptible Staphylococcus aureus; N17.0 Acute kidney failure with tubular necrosis; R57.8 Other shock; G92 Toxic encephalopathy; I85.11 Secondary esophageal varices with bleeding; J69.0 Pneumonitis due to inhalation of food and vomit; K22.11 Ulcer of esophagus with bleeding; D62 Acute posthemorrhagic anemia; K76.6 Portal hypertension; N39.0 Urinary tract infection, site not specified; D68.4 Acquired coagulation factor deficiency; E87.0 Hyperosmolality and hypernatremia; R64 Cachexia; F10.239 Alcohol dependence with withdrawal, unspecified; T80.211A Bloodstream infection due to central venous catheter, initial encounter; K70.40 Alcoholic hepatic failure without coma; R13.10 Dysphagia, unspecified; E03.9 Hypothyroidism, unspecified; R53.81 Other malaise; Z59.0 Homelessness; B96.89 Other specified bacterial agents as the cause of diseases classified elsewhere; M43.6 Torticollis; Y83.8 Other surgical procedures as the cause of abnormal reaction of the patient, or of later complication, without mention of misadventure at the time of the procedure; Y92.230 Patient room in hospital as the place of occurrence of the external cause; R33.9 Retention of urine, unspecified; B95.2 Enterococcus as the cause of diseases classified elsewhere; K20.9 Esophagitis, unspecified; I10 Essential (primary) hypertension; Z68.22 Body mass index [BMI] 22.0-22.9, adult
CPT/HCPCS: 31500; 36415; 36430; 36569; 36600; 70450; 70551; 71010; 74000; 74176; 74230; 76705; 76937; 80048; 80053; 80202; 80306; 81001; 81003; 82140; 82270; 82565; 82607; 82746; 82803; 82962; 83036; 83540; 83615; 83690; 83735; 83930; 83935; 84100; 84134; 84155; 84300; 84439; 84443; 84478; 84484; 84520; 85014; 85018; 85025; 85610; 85730; 86704; 86709; 86803; 86850; 86900; 86901; 86920; 87040; 87070; 87086; 87340; 89220; 90686; 92526; 92610; 92611; 93005; 93306; 94003; 94640; 94664; 94770; 95819; 96374; 96375; 97001; 97002; 97110; 97530; J1940; C9113; G0478; J0330; J0360; J0696; J1630; J1815; J1956; J2060; J2185; J2250; J2270; J2354; J2405; J2543; J2997; J3010; J3370; J3411; J3475; J3480; J7030; J7040; J7042; J7050; J7070; P9016; P9047; P9059

== ENCOUNTER 2016-09-10 11:34 | Emergency (ER) | payer MEDICAID, OTHER ==
[~2016-09-10] VITALS: Wt 60.0 kg
[~2016-09-10 11:34] MED LIST changes: +ADV25050 INH; +ALBU2.5V3 HHN; -ALBU8.5H5 INH; +ALDS NGT; +CATTTS1 TRANSDERM; +CHLO473M4 MT; +DOCU-144 PO; -FOLI-49 PO; +LACT20SO12 PEG; +LAS20 GTB; +LEVO50TA83 PEG; -MULTI PO; +PANT40TA3 PEG; +PROP10TA6 PO
--- NOTE | 2016-09-10 11:53 | ERA ---
ER Documentation Chief Complaint Date/Time DATE: 09/10/16 TIME: 11:49 Chief Complaint ABD PAIN X 2 DAYS WITH N/V HPI Patient is a 71-year-old male with alcoholic cirrhosis with recent admission for variceal bleeding. He is sent from a SNF with abdominal distention for 1 month. Patient denies abdominal pain, fever, vomiting, dark stool. Patient denies prior paracentesis, but review of hospital notes shows that the patient had a paracentesis during recent hospitalization. ROS All systems reviewed and are negative except as per history of present illness. Medications Home Meds Active Scripts Propranolol Hcl* (Propranolol Hcl*) 10 Mg Tablet, 10 MG PO TID for esophageal varices for 30 Days, TAB Prov:RYLAN OLVERADonnell . 06/24/16 Clonidine Patch (CATAPRES PATCH) 0.1 Mg/24 Hr Patch, 1 PATCH TRANSDERM Q7D for 30 Days, PATCH please discontinue if systolic blood pressure stays 100mmhg or less Prov:RYLAN OLVERADonnell . 06/24/16 Pantoprazole* (Protonix*) 40 Mg Tablet.dr, 40 MG PEG BID for 30 Days, TAB Prov:RYLAN OLVERADonnell . 06/24/16 Spironolactone* (Aldactone*) 5 Mg/Ml (COMPOUNDED) Susp, 25 MG NGT DAILY for 30 Days Prov:RYLAN OLVERADonnell Mason. 06/24/16 Salmeterol Xinaf/Fluticasone* (Advair*) 250-50 Diskus Inhaler, 1 INH INH BID for 30 Days Prov:RYLAN OLVERADonnell Mason. 06/24/16 Levothyroxine Sodium* (Synthroid*) 50 Mcg Tablet, 50 MCG PEG DAILY@06 for 30 Days, TAB Prov:RYLAN OLVERADonnell Mason. 06/24/16 Lactulose* (Cephulac*) 20 Gm/30 Ml Soln, 10 GM PEG Q12 for 30 Days Prov:RYLAN OLVERADonnell Mason. 06/24/16 Furosemide (Lasix) 20 Mg Tab, 20 MG GTB Q12 for 30 Days, TAB Resume 06/28/16 Prov:RYLAN OLVERADonnell Mason. 06/24/16 Docusate Sodium* (Colace*) 100 Mg Capsule, 100 MG PO Q12H for 30 Days, CAP Prov:KASH OLVERA. 06/24/16 Albuterol Sulfate* (Albuterol Sulfate* Neb) 0.083%-3 Ml Neb, 2.5 MG HHN Q2H RESP THERAPY Y for SHORTNESS OF BREATH for 30 Days Prov:KASH OLVERA 06/24/16 Discontinued Scripts Furosemide* (Lasix*) 20 Mg Tablet, 20 MG PO DAILY, #20 TAB Prov:FERNANDA PAPPAS MD 09/10/16 Chlorhexidine Gluconate (Peridex) 473 Ml Mouthwash, 15 ML MT BID for 14 Days, BOTTLE Prov:KASH OLVERA. 06/24/16 Allergies Allergies: Coded Allergies: No Known Allergy (Unverified , 09/10/16) PMhx/Soc Past medical history: GI bleed, encephalopathy, chronic respiratory failure, muscle weakness, GERD, hypertension, cirrhosis with esophageal varices and ascites Past surgical history: Paracentesis, endoscopy Social history: Homeless, prior heavy alcohol, no current alcohol History of Surgery: Yes (see EMR) Anesthesia Reaction: No Hx Neurological Disorder: No Hx Respiratory Disorders: Yes (asthma) Hx Cardiac Disorders: No Hx Psychiatric Problems: No Hx Miscellaneous Medical Probl: Yes (see EMR) Hx Alcohol Use: Yes Hx Substance Use: No Hx Tobacco Use: No Smoking Status: Unknown if ever smoked FmHx Family History: No coronary disease, No diabetes Physical Exam Vitals Vital Signs Date Time Temp Pulse Resp B/P Pulse Ox O2 Delivery O2 Flow Rate FiO2 09/10/16 12:26 81 19 114/80 97 Room Air 09/10/16 11:42 98.1 81 18 124/76 99 Physical Exam Const: Alert, no acute distress Head: Atraumatic Eyes: Normal Conjunctiva, no pallor, no icterus ENT: Normal External Ears, Nose and Mouth. Mucous membranes moist Neck: Full range of motion. No JVD. No meningismus. Resp: Clear to auscultation bilaterally, no wheezes, no rales Cardio: Regular rate and rhythm, no murmurs Abd: Soft, non tender, moderately distended, no guarding, no rebound Skin: No petechiae or rashes Back: No midline or flank tenderness Ext: No cyanosis, trace edema bilateral lower extremities Neur: Awake and alert, cranial nerves II through XII intact bilaterally, moves and feels 4 extremities appropriately, no asterixis Psych: Normal Mood and Affect Result Diagram: 09/10/16 1205 09/10/16 1205 Results 24 hrs Laboratory Tests Test 09/10/16 12:05 White Blood Count 5.410^3/ul Red Blood Count 3.6110^6/ul Hemoglobin 11.1g/dl Hematocrit 32.9% Mean Corpuscular Volume 91.1fl Mean Corpuscular Hemoglobin 30.7pg Mean Corpuscular Hemoglobin Concent 33.7g/dl Red Cell Distribution Width 14.8% Platelet Count 25413^3/UL Mean Platelet Volume 9.4fl Neutrophils % 55.8% Lymphocytes % 27.0% Monocytes % 12.6% Eosinophils % 3.3% Basophils % 0.9% Nucleated Red Blood Cells % 0.0/100WBC Neutrophils # 3.010^3/ul Lymphocytes # 1.510^3/ul Monocytes # 0.710^3/ul Eosinophils # 0.210^3/ul Basophils # 0.110^3/ul Nucleated Red Blood Cells # 0.010^3/ul Prothrombin Time 15.7Sec Prothrombin Time Ratio 1.2 INR International Normalized Ratio 1.24 Activated Partial Thromboplast Time 36.5Sec Sodium Level 129mmol/L Potassium Level 3.8mmol/L Chloride Level 93mmol/L Carbon Dioxide Level 30mmol/L Anion Gap 10 Blood Urea Nitrogen 14mg/dl Creatinine 0.55mg/dl Glucose Level 97mg/dl Calcium Level 8.9mg/dl Total Bilirubin 0.5mg/dl Direct Bilirubin 0.00mg/dl Indirect Bilirubin 0.5mg/dl Aspartate Amino Transf (AST/SGOT) 46IU/L Alanine Aminotransferase (ALT/SGPT) 35IU/L Alkaline Phosphatase 143IU/L Total Protein 8.6g/dl Albumin 3.1g/dl Globulin 5.50g/dl Albumin/Globulin Ratio 0.56 Current Medications Medications (Trade) Dose Ordered Sig/Deandra Route PRN Reason Start Time Stop Time Status Last Admin Dose Admin Lidocaine (Xylocaine 1% (Mpf)) 5 ml STK-MED ONCE .ROUTE 09/10/16 14:45 09/10/16 14:46 DC 09/10/16 14:47 Procedures/MDM Patient with alcoholic cirrhosis presents to the ER with abdominal distention. Patient was recently admitted with a GI bleed, but denies dark or bloody stools. Patient states that he is asymptomatic except for mild discomfort in the abdomen. There are no signs of SBP. Therapeutic paracentesis performed by radiology to good effect. The patient has stable vital signs and is feeling well. I will discharge him with instruction to follow-up with PMD within the next week, and to return to ER for any new symptoms or concerns. Patient is noted to have mild hyponatremia, which is likely due to underlying cirrhosis, as well as possible use of diuretics. I recommend that this be monitored as an outpatient. It does not require admission at this time. Departure Diagnosis: Primary Impression: Ascites Qualified Code: K70.31 - Ascites due to alcoholic cirrhosis Condition: FERNANDA Qiu MD Sep 10, 2016 11:53
[2016-09-10 12:15] LABS: ADD SCAN DIFF NO
[2016-09-10 12:18] LABS: BASOPHIL # 0.1 10^3/ul (0.0-0.1); BASOPHILS % 0.9 % (0.0-2.0); EOSINOPHILS # 0.2 10^3/ul (0.0-0.5); EOSINOPHILS % 3.3 % (0.0-7.0); HEMATOCRIT 32.9 % (42.0-52.0); HEMOGLOBIN 11.1 g/dl (14.0-18.0); LYMPHOCYTES # 1.5 10^3/ul (0.8-2.9); MEAN CORPUSCULAR HEMOGLOBIN 30.7 pg (29.0-33.0); MEAN CORPUSCULAR HGB CONC 33.7 g/dl (32.0-37.0); MEAN CORPUSCULAR VOLUME 91.1 fl (82.0-101.0); MEAN PLATELET VOLUME 9.4 fl (7.4-10.4); MONOCYTE # 0.7 10^3/ul (0.3-0.9); MONOCYTES % 12.6 % (0.0-11.0); NEUTROPHILS % 55.8 % (39.0-77.0); PLATELET COUNT 274 10^3/UL (140-415); RED BLOOD COUNT 3.61 10^6/ul (4.70-6.10); RED CELL DISTRIBUTION WIDTH 14.8 % (11.5-14.5); WHITE BLOOD COUNT 5.4 10^3/ul (4.8-10.8)
[2016-09-10 12:33] LABS: INR 1.24; PROTIME 15.7 Sec (12.2-14.2); PT RATIO 1.2
[2016-09-10 12:34] LABS: PARTIAL THROMBOPLASTIN TIME 36.5 Sec (25.0-35.0)
[2016-09-10 12:37] LABS: ALBUMIN 3.1 g/dl (3.3-4.9); ALBUMIN/GLOBULIN RATIO 0.56; BILIRUBIN,INDIRECT 0.5 mg/dl (0-1.1); BILIRUBIN,TOTAL 0.5 mg/dl (0.2-1.3); CALCIUM 8.9 mg/dl (8.4-10.2); CREATININE 0.55 mg/dl (0.61-1.24); POTASSIUM 3.8 mmol/L (3.5-5.1); TOTAL PROTEIN 8.6 g/dl (6.1-8.1)
[2016-09-10] MEDS ORDERED: LIDOCAINE 1% (MPF) 5 ML VIAL ONE (14:45)
--- NOTE | 2016-09-10 15:06 | RADRPT ---
PROCEDURE: Ultrasound guided paracentesis. CLINICAL INDICATION: Ascites and shortness of breath. COMPARISON: 06/21/2016. TECHNIQUE: The risks, benefits, and alternatives were explained to the patient and/or the patient's family, inc luding but not limited to bleeding, infection, pain, visceral or vascular damage, shock, and . The patient and/or the patient's family understood the risks and the alternatives and wished to pro ceed with the procedure. Informed written consent was obtained. A procedural time out was performed . The patient's name, date of , and procedure to be performed were verified. Utilizing ultrasound guidance, optimal location for entry to the peritoneal cavity was ascertained. The overlying skin was prepped and draped in the usual sterile fashion. Approximately 10 ml of 1% Xylocaine was injected locally for pain control. Using ultrasound guidance, an 8 [place] catheter wa s introduced into the peritoneal cavity in the right lower quadrant without difficulty. FINDINGS: Initial images demonstrate ascites. Approximately 5.5 liters of serous fluid was aspirated and disc arded. The patient tolerated the procedure well without complication. IMPRESSION: 1. Successful ultrasound-guided paracentesis. RPTAT: QQ .Omar Moreira MD, Date Time Electronically viewed and signed by .Omar Moreira MD, on 09/10/2016 15:06 .R/
[2016-09-10] MEDS ORDERED: FURO-110 PO (15:10)
[2016-09-10 15:29] VITALS: BP 118/77; PULSE 75; RESP 18; TEMP 97.8
== END 2016-09-10 16:06 | disposition home or self-care (01) ==
LOC: E/R 11:34
DX: K70.31 Alcoholic cirrhosis of liver with ascites (principal); R40.2252 Coma scale, best verbal response, oriented, at arrival to emergency department; I10 Essential (primary) hypertension; J45.909 Unspecified asthma, uncomplicated; R40.2142 Coma scale, eyes open, spontaneous, at arrival to emergency department; R40.2362 Coma scale, best motor response, obeys commands, at arrival to emergency department
CPT/HCPCS: 36415; 80053; 85025; 85610; 85730; Z7502; Z7610